=== PATIENT | female | born 1950 | race Caucasian/White ===

== ENCOUNTER 2019-09-17 20:11 | Emergency (ER) | payer OTHER, SELFPAY ==
--- NOTE | ~2019-09-17 | CT_ITS ---
EXAMINATION: CT cervical spine wo con DATE: 09/17/2019 21:09 INDICATION: Neck pain TECHNIQUE: Computed tomography (CT) of the cervical spine was performed without intravenous contrast. The dose-length product (DLP) was 464.34 mGy-cm. Automated exposure control and iterative reconstruc tion technique were employed. COMPARISON: None FINDINGS: There is no fracture, dislocation, or subluxation. The odontoid is intact. The vertebral casandra dy heights are normal. There is mild loss of intervertebral disc space height at multiple levels in t he cervical spine. There is mild facet and uncovertebral joint osteoarthritis. IMPRESSION: 1. Mild cervical spondylosis without acute findings. Reviewed, dictated and finalized at location A.
--- NOTE | ~2019-09-17 | XR_ITS ---
EXAMINATION: XR wrist RT min 3V DATE: 09/17/2019 20:54 INDICATION: Right wrist pain TECHNIQUE: Posteroanterior, ulnar deviation, oblique, and lateral views of the right wrist were obtai jad. COMPARISON: None available FINDINGS: Internal stabilization hardware is present at the distal radius and ulna. No acute fracture is identified. Bone alignment is normal. IMPRESSION: 1. No acute osseous abnormality. Reviewed, dictated and finalized at location A.
[2019-09-17 20:16] VITALS: BP 153/71; PULSE 74; RESP 18; TEMP 37.2; O2SAT 97
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
[2019-09-17] MEDS: TETANUS,DIPHTHERIA,AC PERTUSSIS ADULT 0.5 ML (ADACEL) IM (20:49)
[2019-09-17 22:16] VITALS: BP 113/66; PULSE 72; RESP 18; O2SAT 98
== END 2019-09-17 22:17 | disposition home or self-care (01) ==
PROVIDERS: Emergency Provider Family Medicine; PCP Internal Medicine
DX: S60.212A Contusion of left wrist, initial encounter (principal); S60.211A Contusion of right wrist, initial encounter; S61.511A Laceration without foreign body of right wrist, initial encounter; S16.1XXA Strain of muscle, fascia and tendon at neck level, initial encounter; V89.2XXA Person injured in unspecified motor-vehicle accident, traffic, initial encounter
CPT/HCPCS: 29125; 72125; 73110; 90471; 90715; 99282; 99284; L3908

== ENCOUNTER 2019-11-28 14:54 | Outpatient (CLI) | payer MEDICARE, SELFPAY ==
[2019-11-28 15:27] LABS: Add Urine Microscopic? YES; Appearance Urine Sl Cloudy (Clear); Bilirubin Urine Negative (Negative); Blood Urine Negative (Negative); Color Urine Yellow (Yellow); Glucose Urine UA Negative (Negative); Ketones Urine Negative (Negative); Leukocyte Esterase Ur 1+ LEU/UL (Negative); Nitrate Urine Positive (Negative); Protein Urine Trace (Negative); Specific Grav Ur 1.015 (1.010-1.020); pH Urine 7.5 (5.0-8.0)
[2019-11-28 15:32] LABS: Bacteria Urine 4+ /hpf; RBC Urine 0-2 /hpf (0-2); Squamous Epithelial Cell Urine Few /hpf (Few)
== END 2019-11-28 14:55 | disposition home or self-care (01) ==
LOC: CHSLAB 14:56
PROVIDERS: PCP Internal Medicine; Visit Provider Internal Medicine
DX: N39.9 Disorder of urinary system, unspecified (principal); R82.90 Unspecified abnormal findings in urine
CPT/HCPCS: 81001; 87077; 87086; 87088; 87186

== ENCOUNTER 2020-09-19 16:28 | Inpatient (IN) | payer MEDICARE, OTHER, SELFPAY ==
--- NOTE | ~2020-09-19 | CT_ITS ---
CT knee RT wo con DATE: 09/19/2020 18:42 INDICATION: Right knee pain TECHNIQUE: Axial computerized slices through the right knee. Sagittal and coronal reconstructions. COMPARISON: 09/19/2020 right knee FINDINGS: There is knee joint effusion. Diffuse osteopenia. There is osteoarthritis involving the patellofemoral and lateral compartments primarily. There is prominent joint space narrowing and subarticular degenerative cyst formation as well as liza articular spurring at the patellofemoral joint. There is lucency at the base of the superior spurrin g at the patella, which may be recent or old small fracture. No other fracture or dislocation. IMPRESSION: Osteoarthritis and joint effusion Lucency at base of superior patellar spur, possibly recent or remote traumatic injury Reviewed, dictated and finalized at Location [facility]. Reviewed, dictated and finalized at location A.
--- NOTE | ~2020-09-19 | XR_ITS ---
XR hip RT 2V w AP pelvis DATE: 09/19/2020 17:36 INDICATION: Right hip pain radiating down right leg. TECHNIQUE: AP pelvis. AP and lateral views of right hip. COMPARISON: None FINDINGS: Detail is limited due to morbid obesity. Multiple surgical clips overlie the right lower quadrant and pelvis. Diffuse osteopenia. Left hip prosthesis. There is lucency overlying the left pubic bones; bone destruction is not excluded. CT pelvis examina tion is recommended. Otherwise no pelvic fracture or bone destruction is noted. Normal alignment at the pubic symphysis an d sacroiliac joints. No fracture, dislocation, avascular necrosis or bone destruction of the right hip is evident. IMPRESSION: Nonspecific lucency overlying left pubic bone; CT pelvis examination is recommended. Diffuse osteopenia Left hip prosthesis Reviewed, dictated and finalized at location A. IMPRESSION: Nonspecific lucency overlying left pubic bone; CT pelvis examinatio n is recommended. Diffuse osteopenia Left hip prosthesis
--- NOTE | ~2020-09-19 | CT_ITS ---
EXAMINATION: CT pelvis wo con DATE: 09/19/2020 18:43 INDICATION: Right hip and leg pain TECHNIQUE: Computed tomography (CT) of the pelvis was performed without intravenous contrast. Automat ed exposure control and iterative reconstruction technique were employed. Exam dose: 972.19 mGy-cm t otal exam DLP. COMPARISON: None FINDINGS: There is no CT correlate for the lucency noted overlying the left pubic bone on the plain r adiographic examination of 09/19/2020. No pelvic fracture or bone destruction is evident. Left hip arthroplasty. Prominent degenerative disc disease at L5-S1. There is a ventral infrarenal midline abdominal wall hernia containing herniated nonobstructed transv erse colon. There is a fat-containing umbilical hernia. Surgical clips at right lower quadrant and pelvis. IMPRESSION: No pelvic fracture or bone destruction Left hip prosthesis Postoperative change of the right lower quadrant and pelvis Herniated transverse and unobstructed transverse colon and infrarenal ventral midline abdominal wall hernia Fat-containing umbilical hernia Severe degenerative disease at L5-S1 Reviewed, dictated and finalized at [facility]. Reviewed, dictated and finalized at location A. IMPRESSION: No pelvic fracture or bone destruction Left hip prosthesis Postoperative change of the right lower quadrant and pelvis Herniated transverse and unobstructed transverse colon and infrarenal ventral m idline abdominal wall hernia Fat-containing umbilical hernia Severe degenerative disease at L5-S1
--- NOTE | ~2020-09-19 | XR_ITS ---
XR knee RT min 4V DATE: 09/19/2020 17:36 INDICATION: Right knee pain, unable to bear weight. No known injury. TECHNIQUE: 4 views including crosstable lateral COMPARISON: None FINDINGS: Suprapatellar knee joint effusion is noted. There is a linear lucency along the posterosuperior margin of the patella which may represent a small linear fracture. No fracture or dislocation, periosteal reaction or bone destruction is noted otherw ise. No radiopaque interarticular loose body or chondrocalcinosis. Mild tricompartment osteoarthritis of the knee joint. Diffuse osteopenia. IMPRESSION: Suprapatellar knee joint effusion Cannot exclude small linear fracture at the posterior superior margin of the patella Diffuse osteopenia Mild tricompartment osteoarthritis Reviewed, dictated and finalized at location A. IMPRESSION: Suprapatellar knee joint effusion Cannot exclude small linear fracture at the posterior superior margin of the pa tella Diffuse osteopenia Mild tricompartment osteoarthritis
[2020-09-19 16:40] VITALS: BP 149/63; PULSE 72; RESP 20; TEMP 36.1; O2SAT 98
[2020-09-19] MEDS: KETOROLAC 30 MG/ML VIAL (*BKC) IV PUSH (17:03)
[2020-09-19] MEDS: SODIUM CHLORIDE 0.9% IV 1,000 ML 999 ML IV CONT (17:04)
[2020-09-19 17:37] LABS: Lactic Acid Reflex 2.3 mmol/L (0.4-2.0)
[2020-09-19 17:40] LABS: CRP 4.1 mg/dL (0.0-0.9)
[2020-09-19 17:42] LABS: Basophils Absolute Auto 0.03 K/mm3 (0.00-0.10); Basophils Percent Auto 0.3 % (0.0-1.0); Eosinophils Absolute Auto 0.01 K/mm3 (0.02-0.50); Eosinophils Percent Auto 0.1 % (1.0-6.0); Hematocrit 33.7 % (35.0-42.0); Hemoglobin 10.9 g/dL (11.7-13.8); Immature Granulocyte Absolute 0.08 K/mm3 (0.00-0.00); Immature Granulocyte Percent A 0.7 % (0.0-0.0); Lymphocytes Absolute Auto 0.16 K/mm3 (1.10-4.50); Lymphocytes Percent Auto 1.4 % (18.0-42.0); Mean Corpuscular HGB Conc 32.3 g/dL (32.0-36.0); Mean Corpuscular Hemoglobin 29.6 pg (27.0-31.0); Mean Corpuscular Volume 91.6 fL (78.0-102.0); Monocytes Absolute Auto 0.15 K/mm3 (0.10-0.90); Monocytes Percent Auto 1.3 % (2.0-11.0); Neutrophils Absolute Auto 10.9 K/mm3 (1.7-7.2); Neutrophils Percent Auto 96.2 % (50.0-70.0); Platelet Count Result 129 K/mm3 (150-420); Red Blood Count 3.68 M/mm3 (4.20-5.40); Red Cell Distribution Width 15.9 % (11.6-14.4); White Blood Count 11.4 K/mm3 (4.8-10.8)
[2020-09-19 17:46] LABS: Creatine Kinase 20 U/L (26-192)
[2020-09-19 17:48] LABS: Alanine Aminotransferase 35 U/L (14-59); Albumin Level 3.4 g/dL (3.4-5.0); Alkaline Phosphatase 39 U/L (46-116); Anion Gap 8 mmol/L (8-16); Aspartate Amino Transferase 29 U/L (15-37); Bilirubin,Total 1.1 mg/dL (0.00-1.00); Blood Urea Nitrogen 20 mg/dL (7-18); Calcium 8.7 mg/dL (8.5-10.1); Carbon Dioxide 29 mmol/L (21-32); Chloride 96 mmol/L (98-108); Estimated CRCL calculation 57 ml/min; Estimated Glomerular Filt Rate 53; Glucose 197 mg/dL (70-99); Osmolality Calculated 283 mOsm/kg (285-295); Potassium 3.9 mmol/L (3.5-5.1); Sodium 133 mmol/L (136-145); Total Protein 6.7 g/dL (6.4-8.2); Uric Acid 4.7 mg/dL (2.6-6.0)
[2020-09-19 18:00] VITALS: BP 139/46; PULSE 75; RESP 18; O2SAT 95
[2020-09-19] MEDS: MORPHINE SULFATE (*CRX) 4 MG/ML INJ IV PUSH (18:05)
--- NOTE | 2020-09-19 19:16 | ED.LOWEXIN ---
HPI - Extremity Injury (Lower) General Source: patient, family and EMS Mode of arrival: EMS Limitations: no limitations History of Present Illness HPI Narrative: this is a 70-year-old female with history of rheumatoid arthritis presents via EMS with some right anterior knee pain tenderness warmth to touch, the patient has pain that she rates about an 8/10 did not take anything for pain that has been going on for the last 2 or 3 days and has intensified over the last 24 hours. The patient has a history of remote rheumatoid arthritis currently on methotrexate and the patient is unaware of any injuries, has limited range of motion secondary to pain and swelling. Currently there is no fever, no shortness of breath no chest pain no abdominal pain no nausea vomiting no diarrhea constipation. MD complaint: knee injury Injury: Right: knee ( Tender anterior right knee) Type of Injury: unknown Place: home Severity: moderate Severity scale (1-10): 8 Relieving factors: nothing ( did not try anything at home) Exacerbating factors: weight bearing, movement and palpation Associated symptoms: swelling and unable to bear weight Other symptoms: none Related Data Home Medications Medication Instructions Recorded Confirmed aspirin [Adult Aspirin] 81 mg PO DAILY 09/19/20 09/19/20 duloxetine 60 mg PO DAILY 09/19/20 09/19/20 folic acid 1 mg PO DAILY 09/19/20 09/19/20 methotrexate sodium 2.5 mg PO DAILY 09/19/20 09/19/20 bffbvjiv-cruy-XL-calcium-mins 1 tablet PO DAILY 09/19/20 09/19/20 [Women's One Daily] pantoprazole 40 mg PO DAILY 09/19/20 09/19/20 Allergies Allergy/AdvReac Type Severity Reaction Status Date / Time nizatidine Allergy Severe Verified 08/04/16 18:21 Review of Systems Review of Systems: All systems reviewed & are unremarkable except as noted in HPI and below PMFSH Past Medical History Medical History Rheumatoid aortitis Family History Family History Other Diabetes mellitus Malignant neoplasm of prostate Social History Social History Smoking status: Former smoker Smoking end date: 07/05/90 Drinks per week: 1 Substance use: never Gender identity (if verbalized by the patient): Female Spiritual care concerns: No Exam Const: General: no acute distress Orientation/consciousness: patient oriented x3 HENMT: Head: normal to inspection Eyes: Conjunctivae: conjunctivae normal Pupils: Equal, round and reactive pupils present Direct Ophthalmoscopy: no photophobia Neck: Neck: normal visual inspection, no lymphadenopathy and no meningeal signs Chest: Chest palpation & inspection: normal inspection of the chest Resp: Effort & Inspection: normal respiratory effort Auscultation: clear to auscultation bilaterally Cardio: Rate: regular rate Rhythm: regular rhythm GI: GI Palp: Yes Soft to palpation : General: Yes no CVA tenderness Skin: Other: Has anterior right knee tender with palpation and with movement is warm and tender. Neuro: General: patient oriented x3 Extrem: General: normal to inspection and no pedal edema Psych: Appearance: well kempt Mental Status: mental status grossly normal Affect: normal affect Course Course Emergency Course: Patient receive morphine and Toradol and pain has improved twister frame tender with palpation and movement, reviewed labs and x-rays with patient x-ray and CT scan show that there is some osteoarthritis of the right knee with some joint effusion and a lucency at the base that is suspicious for a traumatic knee injury. Will advised that we would admit the patient with observation and give a dose of antibiotics and continue pain control and monitor her blood labs Vital Signs Vital signs: Vital Signs Temperature 36.1 C L 09/19/20 16:40 Pulse Rate 72 09/19/20 16:40 Respiratory Rate 20
--- NOTE | 2020-09-19 19:32 | PC.NURSE ---
pt to be admitted to obs room 205, report to ceci.
[2020-09-19 19:33] VITALS: BP 125/54; PULSE 72; RESP 20; O2SAT 93
[2020-09-19 19:39] LABS: Erythrocyte Sedimentation Rate 20 mm/hr (0-20)
[2020-09-19 20:00] VITALS: BP 131/53; PULSE 85; RESP 18; TEMP 37.4; O2SAT 96
[2020-09-19] MEDS: SODIUM CHLORIDE 0.9% IV 1,000 ML 100 ML IV CONT (20:11)
--- NOTE | 2020-09-19 20:20 | ADMGEN ---
This patient, Ariadne Okeefe, was admitted to 2nd Floor Room 205-2. Patient/family oriented to hospital policies and general routines including ID bracelet, bed and alarms, visiting hours, pain management, procedures, bathroom and other care routines, personal items, smoking policy, room service/diet, and visiting hours. Patient admitted for knee pain with swelling, warmth and discomfort Information on how to activate the Rapid Response Team has been discussed. Patient/Family are encouraged to report perceived risks to care and to ask questions if they do not understand what they are told or what they should do.
[2020-09-19 20:28] VITALS: BMI 34.0
--- NOTE | 2020-09-19 20:43 | PC.NURSE ---
Patient unable to assist with movement. Difficulty with repositioning. Maxi slides used. refused to reposition due to knee pain.
[2020-09-19 20:46] LABS: Reflex Lactic Acid Yes or No Add Lactic
--- NOTE | 2020-09-19 21:20 | PC.NURSE ---
Patient is resting at this time. refuses bedpan. Denies [place] is wet. Does not want to change position. Stated it doesn't hurt as ling as she stays in one place.
[2020-09-19 21:21] LABS: Lactic Acid 1.1 mmol/L (0.4-2.0)
--- NOTE | 2020-09-19 22:18 | PC.NURSE ---
Patient resting. Did not open eyes when nurse in room. Fluids continue as ordered. Pain at 0 on FLACC
[2020-09-20] VITALS (8 sets, daily range): BP systolic 132–144; BP diastolic 50–73; PULSE 63–78; RESP 18–20; TEMP 36.4–37.8; O2SAT 93–96
--- NOTE | 2020-09-20 00:15 | PC.NURSE ---
Patient temp 100.1. Requested order for PRN tylenol for patient. Patient continues to receive fluid as ordered. Pain level appear to be increasing.
[2020-09-20] MEDS: MORPHINE SULFATE (*CRX) 2 MG/ML INJ IV PUSH ×6 (00:19→23:45)
--- NOTE | 2020-09-20 00:21 | PC.NURSE ---
Dr. Hunt notified of pt's temp of 100.1; New orders received and noted.
--- NOTE | 2020-09-20 00:23 | PM.EVENT ---
Event Note Event Note Event Note: addendum to my previous note on Ariadne Okeefe. Kate criteria for septic joint comes to less than 3%. The anterior right knee is warm and tender to touch and suspect cellulitis and received 1st dose of ceftriaxone.
[2020-09-20] MEDS: ACETAMINOPHEN 325 MG TABLET 650 MG PO (00:32)
--- NOTE | 2020-09-20 01:42 | PC.NURSE ---
Patient is resting. respirations regular and even. pain 0 on FLACC.
--- NOTE | 2020-09-20 02:44 | PC.NURSE ---
Patient pain level 0 on FLACC. Depends appears dry. Patient refuses to change position
--- NOTE | 2020-09-20 03:45 | PC.NURSE ---
Patient resting. Pain on FLACC. Fluids continue as ordered
--- NOTE | 2020-09-20 04:43 | PC.NURSE ---
Patient is afebrile at this time. Pain level 0 on FLACC.
[2020-09-20 05:26] LABS: Basophils Absolute Auto 0.03 K/mm3 (0.00-0.10); Basophils Percent Auto 0.3 % (0.0-1.0); Eosinophils Absolute Auto 0.02 K/mm3 (0.02-0.50); Eosinophils Percent Auto 0.2 % (1.0-6.0); Hematocrit 30.8 % (35.0-42.0); Immature Granulocyte Absolute 0.05 K/mm3 (0.00-0.00); Immature Granulocyte Percent A 0.5 % (0.0-0.0); Lymphocytes Absolute Auto 0.78 K/mm3 (1.10-4.50); Lymphocytes Percent Auto 8.2 % (18.0-42.0); Mean Corpuscular HGB Conc 32.5 g/dL (32.0-36.0); Mean Corpuscular Hemoglobin 29.1 pg (27.0-31.0); Mean Corpuscular Volume 89.5 fL (78.0-102.0); Mean Platelet Volume 10.5 fl (9.2-11.8); Monocytes Absolute Auto 0.41 K/mm3 (0.10-0.90); Monocytes Percent Auto 4.3 % (2.0-11.0); Neutrophils Absolute Auto 8.3 K/mm3 (1.7-7.2); Neutrophils Percent Auto 86.5 % (50.0-70.0); Platelet Count Result 118 K/mm3 (150-420); Red Blood Count 3.44 M/mm3 (4.20-5.40); Red Cell Distribution Width 16.1 % (11.6-14.4); White Blood Count 9.6 K/mm3 (4.8-10.8)
[2020-09-20] MEDS: SODIUM CHLORIDE 0.9% IV 1,000 ML 100 ML IV CONT ×2 (05:30→17:20)
--- NOTE | 2020-09-20 05:38 | PC.NURSE ---
Patient alert and oriented. Offered to check Depends and /or provide bedpan. Denied being wet and did not want to attempt bedpan due to sidcomfort
[2020-09-20 05:42] LABS: Alanine Aminotransferase 30 U/L (14-59); Albumin Level 2.8 g/dL (3.4-5.0); Alkaline Phosphatase 31 U/L (46-116); Anion Gap 9 mmol/L (8-16); Aspartate Amino Transferase 23 U/L (15-37); Bilirubin,Total 2.4 mg/dL (0.00-1.00); Blood Urea Nitrogen 29 mg/dL (7-18); Calcium 8.4 mg/dL (8.5-10.1); Carbon Dioxide 26 mmol/L (21-32); Chloride 100 mmol/L (98-108); Estimated CRCL calculation 54 ml/min; Estimated Glomerular Filt Rate 48; Glucose 149 mg/dL (70-99); Osmolality Calculated 288 mOsm/kg (285-295); Potassium 4.2 mmol/L (3.5-5.1); Sodium 135 mmol/L (136-145); Total Protein 5.8 g/dL (6.4-8.2)
[2020-09-20 05:47] LABS: Lactic Acid Reflex 0.9 mmol/L (0.4-2.0)
[2020-09-20] MEDS: PANTOPRAZOLE 40 MG TABLET PO (08:24)
[2020-09-20] MEDS: FOLIC ACID 1 MG TABLET PO (08:24)
[2020-09-20] MEDS: ASPIRIN 81 MG CHEWABLE TABLET PO (08:24)
[2020-09-20] MEDS: DULoxetine HCL 30 MG CAPSULE.DR 60 MG PO (08:25)
[2020-09-20] MEDS: THERAPEUTIC MULTIVITAMINS/MINERALS TAB (*BKC) 1 TABLET PO (08:25)
--- NOTE | 2020-09-20 09:19 | PM.IMHP ---
H&P: HPI History of Present Illness Date/Time: 09/20/20 09:19 Ariadne Okeefe is a 70 y/o F who comes to the hospital 1 week after falling in her bathtub at home. She has had increased pain in the right knee that was 8/10 on a pain scale. She states her knee started swelling and became red over the last 2-3 days. Pt states she has a Hx of RA. Other PMHx includes Depression. Pt denies CP, SOB, Bowel issues or changes in habits, weakness in the right knee r/t current issue. Admits to not drinking much at home as she does not like getting up in the middle of the night to urinate. <HUMBERTO Villagomez - Last Filed: 09/20/20 15:39> Chief Complaint: Right knee pain with redness and warmth <HUMBERTO Villagomez - Last Filed: 09/20/20 15:39> Review of Systems Review of Systems: All systems reviewed & are unremarkable except as noted in HPI and below <HUMBERTO Villagomez - Last Filed: 09/20/20 15:39> [facility] Past Medical History Medical History: Medical History Calculus of gallbladder with chronic cholecystitis without obstruction Encounter for surgical aftercare following surgery of digestive system Incisional hernia without obstruction or gangrene Rheumatoid aortitis <HUMBERTO Villagomez - Last Filed: 09/20/20 15:39> Family History Family History: Family History Other Diabetes mellitus Malignant neoplasm of prostate <HUMBERTO Villagomez - Last Filed: 09/20/20 15:39> Social History Social History: Social History Smoking status: Former smoker Smoking end date: 07/05/90 Drinks per week: 1 Substance use: never Gender identity (if verbalized by the patient): Female Spiritual care concerns: No <HUMBERTO Villagomez - Last Filed: 09/20/20 15:39> Meds Home Medications and Allergies Home medications: Home Medications Medication Instructions Recorded Confirmed Type aspirin [Adult Aspirin] 81 mg PO DAILY 09/19/20 09/19/20 History duloxetine 60 mg PO DAILY 09/19/20 09/19/20 History folic acid 1 mg PO DAILY 09/19/20 09/19/20 History methotrexate sodium 2.5 mg PO DAILY 09/19/20 09/19/20 History pdpjxvoc-dezw-XP-calcium-mins 1 tablet PO DAILY 09/19/20 09/19/20 History [Women's One Daily] pantoprazole 40 mg PO DAILY 09/19/20 09/19/20 History <HUMBERTO Villagomez - Last Filed: 09/20/20 15:39> Allergies/Adverse reactions: Allergies Allergy/AdvReac Type Severity Reaction Status Date / Time nizatidine Allergy Severe Verified 08/04/16 18:21 <HUMBERTO Villagomez - Last Filed: 09/20/20 15:39> Vital Signs Vital Signs - 24 hr 09/19/20 16:40 09/19/20 18:00 09/19/20 19:33 Temperature 97 F L Pulse Rate 72 75 72 Respiratory Rate 20 18 20 Blood Pressure 149/63 H 139/46 L 125/54 L Pulse Oximetry 98 95 93 09/19/20 20:00 09/20/20 00:00 09/20/20 00:32 Temperature 99.4 F 100.1 F H 100.1 F H Pulse Rate 85 74 Respiratory Rate 18 20 Blood Pressure 131/53 L 135/73 Pulse Oximetry 96 93 09/20/20 01:24 09/20/20 04:00 09/20/20 08:00 Temperature 99.0 F 98.1 F 97.9 F Pulse Rate 72 63 Respiratory Rate 18 18 Blood Pressure 132/55 L 137/53 L Pulse Oximetry 96 96 <HUMBERTO Villagomez - Last Filed: 09/20/20 15:39> Exam Const: General: cooperative, comfortable, no acute distress, alert, awake and Physically active (as much as possible) <HUMBERTO Villagomez - Last Filed: 09/20/20 15:39> Nutritional Appearance: obese <HUMBERTO Villagomez - Last Filed: 09/20/20 15:39> Resp: Effort & Inspection: normal respiratory effort <HUMBERTO Villagomez - Last Filed: 09/20/20 15:39> Auscultation: clear to auscultation bilaterally <HUMBERTO Villagomez - Last Filed: 09/20/20 15:39> Cardio: Rate: regular rate <HUMBERTO Villagomez - Last Filed: 09/20/20 15:39>
--- NOTE | 2020-09-20 15:32 | PC.NURSE ---
Immobilizer in place R Knee.
--- NOTE | 2020-09-20 19:40 | PC.NURSE ---
Patient assister to bedside commode and then to bed with a walker, a gait belt and 2 maximum assist. Patient did very little when standing up and also when sitting. Patient did fairly well during the ambulation part by hopping on her left leg. Right knee immobilizer in place but patient insisted it be taken off once she was in bed. Urine orange in color. Patient complaining of pain rated @ 8 to right knee with PRN Morphine given as ordered. Call light in reach.
[2020-09-21] VITALS: BP 145/61; PULSE 72; RESP 20; TEMP 36.3; O2SAT 93
[2020-09-21] MEDS: SODIUM CHLORIDE 0.9% IV 1,000 ML 100 ML IV CONT ×2 (03:46→13:33)
[2020-09-21] MEDS: MORPHINE SULFATE (*CRX) 2 MG/ML INJ IV PUSH (03:50)
[2020-09-21 04:00] VITALS: BP 143/66; PULSE 66; RESP 18; TEMP 36.1; O2SAT 96
[2020-09-21 05:42] LABS: Hematocrit 29.1 % (35.0-42.0); Hemoglobin 9.4 g/dL (11.7-13.8); Mean Corpuscular HGB Conc 32.3 g/dL (32.0-36.0); Mean Corpuscular Hemoglobin 29.5 pg (27.0-31.0); Mean Corpuscular Volume 91.2 fL (78.0-102.0); Mean Platelet Volume 10.3 fl (9.2-11.8); Platelet Count Result 112 K/mm3 (150-420); Red Blood Count 3.19 M/mm3 (4.20-5.40); Red Cell Distribution Width 16.3 % (11.6-14.4)
[2020-09-21 05:52] LABS: Anion Gap 6 mmol/L (8-16); Blood Urea Nitrogen 22 mg/dL (7-18); Calcium 8.1 mg/dL (8.5-10.1); Carbon Dioxide 28 mmol/L (21-32); Chloride 102 mmol/L (98-108); Estimated CRCL calculation 62 ml/min; Estimated Glomerular Filt Rate 57; Glucose 116 mg/dL (70-99); Osmolality Calculated 286 mOsm/kg (285-295); Sodium 136 mmol/L (136-145)
[2020-09-21 08:00] VITALS: BP 135/66; PULSE 63; RESP 18; TEMP 35.9; O2SAT 98
[2020-09-21] MEDS: ASPIRIN 81 MG CHEWABLE TABLET PO (09:19)
[2020-09-21] MEDS: THERAPEUTIC MULTIVITAMINS/MINERALS TAB (*BKC) 1 TABLET PO (09:19)
[2020-09-21] MEDS: FOLIC ACID 1 MG TABLET PO (09:19)
[2020-09-21] MEDS: DULoxetine HCL 30 MG CAPSULE.DR 60 MG PO (09:19)
[2020-09-21] MEDS: PANTOPRAZOLE 40 MG TABLET PO (09:19)
--- NOTE | 2020-09-21 10:15 | PM.IMPN ---
Progress Note: A&P Assessment and Plan (1) Acute knee pain: Qualifiers: Laterality: right Qualified Code(s): M25.561 - Pain in right knee Code(s): M25.569 - Pain in unspecified knee Status: Acute Assessment and Plan: Pain control (2) Patellar fracture: Qualifiers: Encounter type: initial encounter Fracture alignment: nondisplaced Fracture morphology: unspecified fracture morphology Fracture type: closed Laterality: right Qualified Code(s): S82.001A - Unspecified fracture of right patella, initial encounter for closed fracture Code(s): S82.009A - Unspecified fracture of unspecified patella, initial encounter for closed fracture Status: Acute Assessment and Plan: Knee brace while up and pain control. Assistance to and from bathroom (3) Rheumatoid aortitis: Code(s): I01.1 - Acute rheumatic endocarditis Status: Acute Assessment and Plan: Call placed to Dr. Watkins and informed of patient condition see above note uric acid level normal will consider steroids if no improvement (4) Knee effusion, right: Code(s): M25.461 - Effusion, right knee Status: Acute Assessment and Plan: Denny wrap started on this knee with Ice pack and elevation. Will monitor labs for WBC, ESR, CRP if indicative of infection will tap for synovial fluid to send to lab Subjective Date/time seen: 09/21/20 10:[address]Richard Watkins at [facility] patient Disk Recordist regarding patient swelling and patient to discuss plan of care and possible tap of fluids in the knees. Dr. Watkins has explained that she more than likely has a knee effusion that is causing her swelling and not a RA issue due to her having the fall prior to the swelling. Would should add compression to see if that helps with relieving some of this patient knee swelling. He is not able to truly diagnosis that because she is here tapping her knee and sending the synovial fluid off would not be off base. He explained to have patient follow up outpatient once she leaves. Patient just went into the bed and was complaining of a lot of pain to her knee, back, shoulder and states her full body is hurting her. Patient states she is not sure if the pain medication is helping because she is always hurting. Patient states that she has a RA who just had her on Steroids she has been off of for two weeks at this time. Patient denies any nausea and or vomiting. She complains that she does not like the leg brace and feels like it continue to fall down and she does not like wearing it. Review of Systems Review of Systems: Narrative: Body aches and knee pain Hands, knee, back and neck pain. All systems reviewed & are unremarkable except as noted in HPI and below Exam Const: General: cooperative, healthy appearing and alert Nutritional Appearance: well nourished Orientation/consciousness: oriented to person, oriented to place, oriented to time and patient oriented x3 Limitations: physical limitations HENMT: Head: normal to inspection Ears: hearing grossly normal bilaterally General nose exam: Normal external nose present Face and sinus: normal facial exam Mouth: Yes Normal oral and palatal mucosa present, Yes lip normal and Yes tongue normal Eyes: General: appearance normal, both eyes and all related structures Periorbital: periorbital findings normal Pupils: Equal, round and reactive pupils present Neck: Neck: supple Carotids: other (c/o pain and stiffness due to the way she is laying in the bed. ) Cardio: Palpation: normal PMI Rate: regular rate Rhythm: regular rhythm GI: Inspection: normal to inspection Auscultation: normal bowel sounds Back/Spine/Pelvis: Back: no CVA tenderness Other: Pain in the back not able to pin point exact location Skin: General skin exam: normal color Neuro: General: oriented to person, oriented to place, oriented to time and patient or
--- NOTE | 2020-09-21 10:22 | PC.NURSE ---
Denny wrap applied tightly to right knee per POT TENDER
[2020-09-21] MEDS: HYDROcodone/acetaminophen (*CRX) 5-325 MG TABLET 1 TAB PO ×3 (10:53→20:01)
[2020-09-21] MEDS: NITROFURANTOIN MONOHYD MACROCR 100 MG CAP PO ×2 (10:54→20:01)
[2020-09-21 11:14] LABS: Uric Acid 3.9 mg/dL (2.6-6.0)
[2020-09-21 12:00] VITALS: BP 126/55; PULSE 66; RESP 18; TEMP 36.6; O2SAT 99
[2020-09-21 16:00] VITALS: BP 135/56; PULSE 66; RESP 18; TEMP 36.6; O2SAT 98
[2020-09-22] VITALS: BP 151/56; PULSE 75; RESP 18; TEMP 36.6; O2SAT 91
[2020-09-22] MEDS: HYDROcodone/acetaminophen (*CRX) 5-325 MG TABLET 1 TAB PO (05:26)
[2020-09-22 05:52] LABS: Hematocrit 28.7 % (35.0-42.0); Hemoglobin 9.2 g/dL (11.7-13.8); Mean Corpuscular HGB Conc 32.1 g/dL (32.0-36.0); Mean Corpuscular Volume 90.5 fL (78.0-102.0); Mean Platelet Volume 10.7 fl (9.2-11.8); Platelet Count Result 114 K/mm3 (150-420); Red Blood Count 3.17 M/mm3 (4.20-5.40); Red Cell Distribution Width 16.1 % (11.6-14.4); White Blood Count 6.9 K/mm3 (4.8-10.8)
[2020-09-22 06:04] LABS: Alanine Aminotransferase 21 U/L (14-59); Albumin Level 2.7 g/dL (3.4-5.0); Alkaline Phosphatase 30 U/L (46-116); Anion Gap 9 mmol/L (8-16); Aspartate Amino Transferase 11 U/L (15-37); Blood Urea Nitrogen 20 mg/dL (7-18); Calcium 8.5 mg/dL (8.5-10.1); Carbon Dioxide 27 mmol/L (21-32); Chloride 100 mmol/L (98-108); Estimated CRCL calculation 70 ml/min; Estimated Glomerular Filt Rate > 60; Glucose 126 mg/dL (70-99); Osmolality Calculated 286 mOsm/kg (285-295); Potassium 4.1 mmol/L (3.5-5.1); Sodium 136 mmol/L (136-145); Total Protein 5.9 g/dL (6.4-8.2)
[2020-09-22 07:47] LABS: CRP 14.7 mg/dL (0.0-0.9)
[2020-09-22 08:00] VITALS: BP 129/54; PULSE 66; RESP 18; TEMP 36.6; O2SAT 96
--- NOTE | 2020-09-22 08:02 | P.DS_ITS ---
DS: Admitting Diagnosis Admitting Diagnosis Admitting Diagnosis: Fracture left patella, rheumatoid arthritis <Sandy Cornelius NETBACKUP ADMINISTRATORLarisaC - Last Filed: 09/22/20 12:24> DS: Discharge Diagnosis Discharge Diagnosis (1) Acute knee pain: Qualifiers: Laterality: right Qualified Code(s): M25.561 - Pain in right knee <Sandy Cornelius NETBACKUP ADMINISTRATORLarisaC - Last Filed: 09/22/20 12:24> Code(s): M25.569 - Pain in unspecified knee <Sandy Cornelius NETBACKUP ADMINISTRATOR-C - Last Filed: 09/22/20 12:24> Status: Acute <Sandy Cornelius NETBACKUP ADMINISTRATORLarisaC - Last Filed: 09/22/20 12:24> Assessment and Plan: * Secondary to patella fracture versus rheumatoid arthritis * Pain control * Patient will discharge home with instructions to continue use of Denny wrap, knee immobilizer and use of steroids * She will also need to follow-up with orthopedics and her primary care physician with possible PT OT <Sandy Cornelius NETBACKUP ADMINISTRATORLarisa - Last Filed: 09/22/20 12:24> (2) Patellar fracture: Qualifiers: Encounter type: initial encounter Fracture alignment: nondisplaced Fracture morphology: unspecified fracture morphology Fracture type: closed Laterality: right Qualified Code(s): S82.001A - Unspecified fracture of right patella, initial encounter for closed fracture <Sandy Cornelius NETBACKUP ADMINISTRATORLarisaC - Last Filed: 09/22/20 12:24> Code(s): S82.009A - Unspecified fracture of unspecified patella, initial encounter for closed fracture <Sandy CorneliusNIKI-C - Last Filed: 09/22/20 12:24> Status: Acute <Sandy Cornelius NETBACKUP ADMINISTRATORLarisaC - Last Filed: 09/22/20 12:24> Assessment and Plan: * CT of the knee indicates fracture of her patella and joint effusion of her right knee * Knee brace while up and pain control. * Patient will need to follow-up with orthopedics, per Mrs. 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 Watkins and informed of patient condition. Will need to follow-up with her director hydrogen storage engineering * uric acid level normal * Patient was discharged with prednisone <AUDRA Glez - Last Filed: 09/22/20 12:24> (4) Knee effusion, right: Code(s): M25.461 - Effusion, right knee <AUDRA Glez - Last Filed: 09/22/20 12:24> Status: Acute <AUDRA Glez - Last Filed: 09/22/20 12:24> Assessment and Plan: * Denny wrap started on this knee with Ice pack and elevation. * Not indicated at this time patient WBCs within normal limits patient afebrile. <AUDRA Glez - Last Filed: 09/22/20 12:24> DS: Summary Hospital Course Reason for hospitalization: Ariadne Okeefe is a 70 y/o F who comes to the hospital post fall with right knee pain. She states her knee started swelling and became red over the last 2-3 days. Pt states she has a Hx of RA. Other PMHx includes Depression. Pt denies CP, SOB, , weakness in the right knee r/t current issue. CT of the knee indicates osteoarthritis with joint effusion. CT of the knee cannot exclude small linear fracture at the posterior superior margin of the patella. Patient director hydrogen storage engineering contacted keegan
--- NOTE | 2020-09-22 08:02 | PM.DS ---
DS: Admitting Diagnosis Admitting Diagnosis Admitting Diagnosis: Fracture left patella, rheumatoid arthritis <MED GlezC - Last Filed: 09/22/20 12:24> DS: Discharge Diagnosis Discharge Diagnosis (1) Acute knee pain: Qualifiers: Laterality: right Qualified Code(s): M25.561 - Pain in right knee <MED GlezC - Last Filed: 09/22/20 12:24> Code(s): M25.569 - Pain in unspecified knee <NIKI Glez-C - Last Filed: 09/22/20 12:24> Status: Acute <MED GlezC - Last Filed: 09/22/20 12:24> Assessment and Plan: Secondary to patella fracture versus rheumatoid arthritis Pain control Patient will discharge home with instructions to continue use of Denny wrap, knee immobilizer and use of steroids She will also need to follow-up with orthopedics and her primary care physician with possible PT OT <AUDRA Glez - Last Filed: 09/22/20 12:24> (2) Patellar fracture: Qualifiers: Encounter type: initial encounter Fracture alignment: nondisplaced Fracture morphology: unspecified fracture morphology Fracture type: closed Laterality: right Qualified Code(s): S82.001A - Unspecified fracture of right patella, initial encounter for closed fracture <MED GlezC - Last Filed: 09/22/20 12:24> Code(s): S82.009A - Unspecified fracture of unspecified patella, initial encounter for closed fracture <MED GlezC - Last Filed: 09/22/20 12:24> Status: Acute <AUDRA Glez - Last Filed: 09/22/20 12:24> Assessment and Plan: CT of the knee indicates fracture of her patella and joint effusion of her right knee Knee brace while up and pain control. Patient will need to follow-up with orthopedics, per Mrs. 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 Watkins and informed of patient condition. Will need to follow-up with her tax compliance agent uric acid level normal Patient was discharged with prednisone <AUDRA Glez - Last Filed: 09/22/20 12:24> (4) Knee effusion, right: Code(s): M25.461 - Effusion, right knee <AUDRA Glez - Last Filed: 09/22/20 12:24> Status: Acute <AUDRA Glez - Last Filed: 09/22/20 12:24> Assessment and Plan: Denny wrap started on this knee with Ice pack and elevation. Not indicated at this time patient WBCs within normal limits patient afebrile. <ADURA Glez - Last Filed: 09/22/20 12:24> DS: Summary Hospital Course Reason for hospitalization: Ariadne Okeefe is a 70 y/o F who comes to the hospital post fall with right knee pain. She states her knee started swelling and became red over the last 2-3 days. Pt states she has a Hx of RA. Other PMHx includes Depression. Pt denies CP, SOB, , weakness in the right knee r/t current issue. CT of the knee indicates osteoarthritis with joint effusion. CT of the knee cannot exclude small linear fracture at the posterior superior margin of the patella. Patient tax compliance agent contacted recommended possible tapping the knee if no improvement with a Denny wrap and elevation her extremity and use of ice. Patient condition has improved with the use of Denny wrap and elevating the affected extremity she will be discharged home with steroids .she has also been encouraged to use her knee immobilizer due to a fracture pat
[2020-09-22 08:16] VITALS: BP 129/54; PULSE 66; RESP 18; TEMP 36.6; O2SAT 95
[2020-09-22] MEDS: predniSONE 20 MG TABLET 60 MG PO (09:23)
[2020-09-22] MEDS: DULoxetine HCL 30 MG CAPSULE.DR 60 MG PO (09:24)
[2020-09-22] MEDS: ASPIRIN 81 MG CHEWABLE TABLET PO (09:24)
[2020-09-22] MEDS: THERAPEUTIC MULTIVITAMINS/MINERALS TAB (*BKC) 1 TABLET PO (09:24)
[2020-09-22] MEDS: FOLIC ACID 1 MG TABLET PO (09:24)
[2020-09-22] MEDS: PANTOPRAZOLE 40 MG TABLET PO (09:24)
[2020-09-22] MEDS: NITROFURANTOIN MONOHYD MACROCR 100 MG CAP PO (09:24)
--- NOTE | 2020-09-22 13:38 | PC.NURSE ---
Patient verbalized understanding of discharge instructions. Patient transported of the floor via wheelchair to personal vehicle. Right knee immobilizer applied before patient left. Patient unable to get leg into SUV with immobilizer on. Immobilizer removed. Son instructed on how to put immobilizer back on. Verbalized understanding.
--- NOTE | 2020-09-22 14:16 | PC.NURSE ---
family was here to pick patient up,the son has decided he wants home health for his mother. attempted to set up with [facility] but they have no opening for at least another week per danielle. residential home health referral sent and [facility] claims they will accept patient and are going to start intake and will see patient within 48 hours of dc jenni short
--- NOTE | 2020-09-30 11:46 | PC.NURSE ---
Pt states she received and understood her discharge instructions. Has no other comments.
== END 2020-09-22 13:30 | disposition home or self-care (01) | DRG 556 ==
LOC: CHSED 19:23 → CHS2ND 19:31
PROVIDERS: Nurse Practitioner; Nurse Practitioner Family; Admitting Provider Emergency Medicine; Emergency Provider Emergency Medicine; Visit Provider Emergency Medicine
DX: M25.561 Pain in right knee (principal); S82.001A Unspecified fracture of right patella, initial encounter for closed fracture; L03.115 Cellulitis of right lower limb; N17.9 Acute kidney failure, unspecified; M06.9 Rheumatoid arthritis, unspecified; D69.6 Thrombocytopenia, unspecified; W18.2XXA Fall in (into) shower or empty bathtub, initial encounter; F32.9 Major depressive disorder, single episode, unspecified; Z87.891 Personal history of nicotine dependence
CPT/HCPCS: 36415; 72192; 73502; 73564; 73700; 80048; 80053; 82550; 83605; 84550; 85025; 85027; 85652; 86140; 87040; 96361; 96365; 96375; 96376; 97161; 99285; A9270; G0378; J0696; J1885; J2270; J7030; J7512; L1830

== ENCOUNTER 2020-09-26 10:45 | Outpatient (NON) | payer MEDICARE, SELFPAY ==
[2020-09-26 11:04] LABS: Basophils Absolute Auto 0.01 K/mm3 (0.00-0.10); Basophils Percent Auto 0.2 % (0.0-1.0); Eosinophils Absolute Auto 0.02 K/mm3 (0.02-0.50); Eosinophils Percent Auto 0.4 % (1.0-6.0); Hemoglobin 9.8 g/dL (11.7-13.8); Immature Granulocyte Absolute 0.04 K/mm3 (0.00-0.00); Immature Granulocyte Percent A 0.7 % (0.0-0.0); Lymphocytes Absolute Auto 0.67 K/mm3 (1.10-4.50); Lymphocytes Percent Auto 12.5 % (18.0-42.0); Mean Corpuscular HGB Conc 31.6 g/dL (32.0-36.0); Mean Corpuscular Hemoglobin 28.9 pg (27.0-31.0); Mean Corpuscular Volume 91.4 fL (78.0-102.0); Mean Platelet Volume 10.8 fl (9.2-11.8); Monocytes Absolute Auto 0.32 K/mm3 (0.10-0.90); Neutrophils Absolute Auto 4.3 K/mm3 (1.7-7.2); Neutrophils Percent Auto 80.2 % (50.0-70.0); Platelet Count Result 176 K/mm3 (150-420); Red Blood Count 3.39 M/mm3 (4.20-5.40); Red Cell Distribution Width 16.5 % (11.6-14.4); White Blood Count 5.4 K/mm3 (4.8-10.8)
[2020-09-26 11:21] LABS: Alanine Aminotransferase 25 U/L (14-59); Albumin Level 3.1 g/dL (3.4-5.0); Alkaline Phosphatase 29 U/L (46-116); Anion Gap 8 mmol/L (8-16); Aspartate Amino Transferase 13 U/L (15-37); Bilirubin,Total 1.1 mg/dL (0.00-1.00); Blood Urea Nitrogen 23 mg/dL (7-18); CRP 8.3 mg/dL (0.0-0.9); Calcium 8.9 mg/dL (8.5-10.1); Carbon Dioxide 31 mmol/L (21-32); Chloride 100 mmol/L (98-108); Estimated Glomerular Filt Rate > 60; Glucose 102 mg/dL (70-99); Osmolality Calculated 291 mOsm/kg (285-295); Potassium 3.7 mmol/L (3.5-5.1); Sodium 139 mmol/L (136-145); Total Protein 6.3 g/dL (6.4-8.2)
[2020-09-26 11:31] LABS: D Dimer 1.33 mg/L (0.19-0.50)
[2020-09-26 12:19] LABS: BNP 338 pg/mL (0-100)
== END 2020-09-26 10:46 ==
LOC: CHSLAB 10:46
PROVIDERS: Visit Provider Internal Medicine
DX: D69.6 Thrombocytopenia, unspecified (principal); I01.1 Acute rheumatic endocarditis; R06.02 Shortness of breath
CPT/HCPCS: 36415; 80053; 83735; 83880; 85025; 85380; 86140

== ENCOUNTER 2020-09-26 13:53 | Observation (INO) | payer MEDICARE, OTHER, SELFPAY ==
--- NOTE | ~2020-09-26 | CT_ITS ---
EXAMINATION: CTA chest PE protocol DATE: 09/26/2020 15:00 INDICATION: Shortness of breath. Positive d-dimer. TECHNIQUE: Computed tomography angiography (CTA) of the chest was performed with 100 mL Omnipaque-350 intravenous contrast timed to evaluate the pulmonary arteries. Coronal maximum intensity projection 3D-reconstructions were created by the technologist. Automated exposure control and iterative reconst ruction technique were employed. Exam dose: 542.47 mGy-cm total exam DLP. COMPARISON: August 06, 2018 CTA chest FINDINGS: There is diagnostic contrast enhancement of the pulmonary arteries and no evidence of pulmo nary embolism. There is thoracic aortic and great vessel and coronary artery calcification. No thoracic aortic aneur ysm or dissection. Cardiomegaly. Status post sternotomy/mitral valve replacement. No pericardial effusion. No hilar or mediastinal mass lesion or lymphadenopathy. There is a large chronic stable loculated lower right thoracic pleural fluid collection, not signific antly changed in over 2 years since 08/06/2018, associated compressive atelectasis at the right lung ba se. Minimal left pleural effusion. Occasional scattered very small pulmonary nodular opacities are again noted. No interval suspicious n ew or enlarged mass density. Diffuse osteopenia. IMPRESSION: No evidence of pulmonary embolism Chronic large loculated right lower thoracic pleural fluid collection with associated compressive ate lectasis Emphysema Scattered small pulmonary nodules are again noted; no significant new or enlarging pulmonary mass Status post mitral valve replacement Reviewed, dictated and finalized at [facility]. Reviewed, dictated and finalized at [facility]. IMPRESSION: No evidence of pulmonary embolism Chronic large loculated right lower thoracic pleural fluid collection with asso ciated compressive atelectasis Emphysema Scattered small pulmonary nodules are again noted; no significant new or enlarg ing pulmonary mass Status post mitral valve replacement
--- NOTE | ~2020-09-26 | US_ITS ---
EXAMINATION: US venous doppler [facility] EXAM DATE: 09/26/2020 15:21 INDICATION: Elevated D Dimer and calf pain. TECHNIQUE: Multiple grayscale, color flow and Doppler images of the lower extremity deep venous syste ms bilaterally were obtained and reviewed. Comparison is made to prior examination from 08/04/2016. FINDINGS: Right side: The right common femoral, femoral and profunda veins demonstrate normal color flow, respi ratory variation, augmentation and compressibility. Compressibility, color flow confirmed within the right popliteal, posterior tibial, peroneal, and greater saphenous veins. Left side: The left common femoral, femoral and profunda veins demonstrate normal color flow, respira tory variation, augmentation and compressibility. Compressibility, color flow confirmed within the l eft popliteal, posterior tibial, peroneal, and greater saphenous veins. IMPRESSION: 1. No lower extremity deep venous thrombosis bilaterally. Reviewed, dictated and finalized at location [facility].
[2020-09-26 13:55] VITALS: BP 156/63; PULSE 79; RESP 22; TEMP 37.1; O2SAT 95
--- NOTE | 2020-09-26 14:05 | ECG_ITS ---
Measurements Intervals [place] Rate: 71 P: -31 VT: 127 QRS: 38 QRSD: 85 T: -11 QT: 400 QTc: 435 Interpretive Statements SINUS OR ECTOPIC ATRIAL RHYTHM NONSPECIFIC ST & T-WAVE ABNORMALITY- DIFFUSE LEADS BASELINE ARTIFACT- II, III, AVR, AVL, AVF BORDERLINE ECG Electronically Signed On 09-26-2020 14:32:27 CDT by Tulio Kate D.O.
[2020-09-26 14:29] LABS: Base Excess ABG 2.8 mmol/L (0-2); HCO3 ABG 25.8 mmol/L (23-29); Oxygen Content ABG 14.1 %vol (16.0-22.0); Oxygen Saturation ABG 95.5 % (95-97); PCO2 ABG 33.5 mmHg (35-45); PO2 ABG 79.2 mmHg (75-85); Total Hemoglobin 10.5 g/dL
[2020-09-26 14:29] LABS: INR 1.2; Prothrombin Time 12.7 Seconds (9.50-12.10)
[2020-09-26 14:34] LABS: Device ROOM AIR; Modified Allen's Test Pass; Site Drawn RIGHT RADIAL
[2020-09-26 14:42] LABS: Troponin I 46.1 ng/L (0.00-60.4)
[2020-09-26 14:49] LABS: SARS-CoV-2 Ag Negative (Negative)
[2020-09-26 15:37] VITALS: BP 142/58; PULSE 70; RESP 17; O2SAT 94
[2020-09-26 15:38] LABS: Add Urine Microscopic? YES; Appearance Urine Clear (Clear); Bilirubin Urine Negative (Negative); Blood Urine Negative (Negative); Color Urine Yellow (Yellow); Glucose Urine UA Negative (Negative); Ketones Urine Negative (Negative); Leukocyte Esterase Ur Negative LEU/UL (Negative); Nitrate Urine Negative (Negative); Protein Urine Negative (Negative); Specific Grav Ur 1.015 (1.010-1.020)
--- NOTE | 2020-09-26 15:42 | PC.NURSE ---
NEW LUCIO WRAP APPLIED TO RIGHT KNEE BRIGIDAB DR WONG
--- NOTE | 2020-09-26 15:43 | ED.SOB ---
HPI - SOB/Dyspnea General Chief Complaint: Shortness of Breath/Dyspnea Stated Complaint: possible blood clout in lung Source: patient History of Present Illness HPI Narrative: This is a 70-year-old female that presents with some increasing shortness of breath the patient was discharged approximately a week ago from our facility after she had what appeared to be a right patellar fracture with joint effusion. The patient has a history of COPD and has some an artificial aortic valve, blood work was performed by her primary care physician and was seen by primary care physician earlier today and found that she had an elevated D-dimer and sent to the emergency department to have that evaluated along with her her shortness of breath, the patient denies having any chest pain no palpitations but she was anxious with shortness of breath with no cough no fever chills. Patient has a history of COPD is currently not a smoker but was in the past, with a history of rheumatoid arthritis and fibromyalgia. The patient is currently satting at 94% on room air and did appear anxious initially. MD elicited complaint: shortness of breath Pertinent past history: COPD and congestive heart failure Onset (ago): day(s) Context: recent illness Severity: moderate Exacerbating factors: exertion Relieving factors: rest Known history of: COPD and congestive heart failure Related Data Home Medications Medication Instructions Recorded Confirmed Women's One Daily 1 tablet PO DAILY 09/19/20 09/26/20 aspirin 81 mg PO DAILY 09/19/20 09/26/20 duloxetine 60 mg PO DAILY 09/19/20 09/26/20 folic acid 1 mg PO DAILY 09/19/20 09/26/20 methotrexate sodium 2.5 mg PO DAILY 09/19/20 09/26/20 pantoprazole 40 mg PO DAILY 09/19/20 09/26/20 Allergies Allergy/AdvReac Type Severity Reaction Status Date / Time nizatidine Allergy Severe Verified 08/04/16 18:21 Review of Systems Review of Systems: All systems reviewed & are unremarkable except as noted in HPI and below PMFSH Past Medical History Medical History Calculus of gallbladder with chronic cholecystitis without obstruction Encounter for surgical aftercare following surgery of digestive system Incisional hernia without obstruction or gangrene Rheumatoid aortitis Family History Family History Other Diabetes mellitus Malignant neoplasm of prostate Social History Social History Smoking status: Former smoker Smoking end date: 07/05/90 Drinks per week: 1 Substance use: never Gender identity (if verbalized by the patient): Female Spiritual care concerns: No Exam Const: General: no acute distress Orientation/consciousness: patient oriented x3 HENMT: Head: normal to inspection Eyes: Conjunctivae: conjunctivae normal Pupils: Equal, round and reactive pupils present Neck: Neck: normal visual inspection, no lymphadenopathy and no meningeal signs Resp: Effort & Inspection: normal respiratory effort Auscultation: diminished lung sounds Cardio: Rate: regular rate Rhythm: regular rhythm GI: GI Palp: Yes Soft to palpation Percussion: Yes normal to percussion : General: Yes no CVA tenderness Back/Spine/Pelvis: Back: no CVA tenderness Neuro: General: patient oriented x3, moves all extremities and no meningeal signs Extrem: General: normal to inspection and no pedal edema Psych: Mental Status: mental status grossly normal Course Course Emergency Course: Reassessment of patient, the patient appears more comfortable satting at 94% on room air not struggling to breathe. The patient did have an elevated D-dimer and CTA and Doppler ultrasounds of bilateral lower extremities were performed which were negative for pulmonary embolism or any acute DVT. Reviewed blood work with patient and advised that we will be admitting the patient
[2020-09-26 15:48] LABS: Squamous Epithelial Cell Urine Few /hpf (Few); WBC Urine 0-3 /hpf (0-3)
[2020-09-26 15:58] VITALS: BP 136/60; PULSE 66; O2SAT 94
[2020-09-26 16:42] VITALS: BP 152/68; PULSE 73; RESP 18; TEMP 36.9; O2SAT 94; BMI 48.4
--- NOTE | 2020-09-26 17:01 | ADMGEN ---
This patient, Ariadne Okeefe, was admitted to 2nd Floor Room 203-2. Patient/family oriented to hospital policies and general routines including ID bracelet, bed and alarms, visiting hours, pain management, procedures, bathroom and other care routines, personal items, smoking policy, room service/diet, and visiting hours. Information on how to activate the Rapid Response Team has been discussed. Patient/Family are encouraged to report perceived risks to care and to ask questions if they do not understand what they are told or what they should do.
[2020-09-26] MEDS: FUROSEMIDE INJ 40 MG/4 ML VIAL IV PUSH (17:02)
[2020-09-26] MEDS: ENOXAPARIN 30 MG/0.3 ML SYRINGE SUB-Q (21:14)
--- NOTE | 2020-09-26 21:35 | PC.NURSE ---
pt resting in bed watching tv, dhiraj crackers given and fresh ice water, pt reports feeling much better, denies any other needs at this time, belongings within reach
[2020-09-26 23:30] VITALS: BP 119/48; PULSE 58; RESP 18; TEMP 36.1; O2SAT 100
--- NOTE | 2020-09-27 02:12 | PC.NURSE ---
pt resting in bed, no evidence of distress noted at this time, respirations even and regular
[2020-09-27 06:21] LABS: Basophils Absolute Auto 0.03 K/mm3 (0.00-0.10); Basophils Percent Auto 0.4 % (0.0-1.0); Eosinophils Absolute Auto 0.16 K/mm3 (0.02-0.50); Hematocrit 30.3 % (35.0-42.0); Hemoglobin 9.7 g/dL (11.7-13.8); Immature Granulocyte Absolute 0.09 K/mm3 (0.00-0.00); Immature Granulocyte Percent A 1.1 % (0.0-0.0); Lymphocytes Percent Auto 14.6 % (18.0-42.0); Mean Corpuscular Hemoglobin 29.1 pg (27.0-31.0); Mean Platelet Volume 10.6 fl (9.2-11.8); Monocytes Absolute Auto 0.53 K/mm3 (0.10-0.90); Monocytes Percent Auto 6.5 % (2.0-11.0); Neutrophils Absolute Auto 6.2 K/mm3 (1.7-7.2); Neutrophils Percent Auto 75.4 % (50.0-70.0); Platelet Count Result 198 K/mm3 (150-420); Red Blood Count 3.33 M/mm3 (4.20-5.40); Red Cell Distribution Width 16.1 % (11.6-14.4); White Blood Count 8.2 K/mm3 (4.8-10.8)
[2020-09-27 06:36] LABS: Alanine Aminotransferase 22 U/L (14-59); Alkaline Phosphatase 27 U/L (46-116); Anion Gap 7 mmol/L (8-16); Aspartate Amino Transferase < 10 U/L (15-37); Bilirubin,Total 0.8 mg/dL (0.00-1.00); Blood Urea Nitrogen 21 mg/dL (7-18); Calcium 8.7 mg/dL (8.5-10.1); Carbon Dioxide 33 mmol/L (21-32); Chloride 99 mmol/L (98-108); Estimated CRCL calculation 68 ml/min; Estimated Glomerular Filt Rate 50; Glucose 103 mg/dL (70-99); Osmolality Calculated 291 mOsm/kg (285-295); Potassium 3.4 mmol/L (3.5-5.1); Sodium 139 mmol/L (136-145)
[2020-09-27 06:40] LABS: BNP 279 pg/mL (0-100)
[2020-09-27 08:00] VITALS: BP 143/59; PULSE 62; RESP 18; TEMP 35.9; O2SAT 98
[2020-09-27] MEDS: POTASSIUM CHLORIDE 20 MEQ TABLET 40 MEQ PO (09:23)
[2020-09-27] MEDS: ENOXAPARIN 30 MG/0.3 ML SYRINGE SUB-Q (09:23)
[2020-09-27] MEDS: THERAPEUTIC MULTIVITAMINS/MINERALS TAB (*BKC) 1 TABLET PO (09:24)
[2020-09-27] MEDS: ASPIRIN 81 MG CHEWABLE TABLET PO (09:24)
[2020-09-27] MEDS: FUROSEMIDE 40 MG TABLET PO (09:24)
[2020-09-27] MEDS: PANTOPRAZOLE 40 MG TABLET PO (09:24)
[2020-09-27] MEDS: DULoxetine HCL 30 MG CAPSULE.DR 60 MG PO (09:24)
[2020-09-27] MEDS: predniSONE 20 MG TABLET PO (09:24)
[2020-09-27] MEDS: FOLIC ACID 1 MG TABLET PO (09:24)
--- NOTE | 2020-09-27 09:48 | PM.DS ---
DS: Admitting Diagnosis Admitting Diagnosis Admitting Diagnosis: Newly diagnosed congestive heart failure DS: Discharge Diagnosis Discharge Diagnosis (1) Congestive heart failure: Qualifiers: Heart failure chronicity: unspecified Heart failure type: unspecified Qualified Code(s): I50.9 - Heart failure, unspecified Code(s): I50.9 - Heart failure, unspecified Status: Acute Assessment and Plan: Patient will discharge home with Lasix 20 mg daily and potassium Patient educated on congestive heart failure (2) COPD exacerbation: Code(s): J44.1 - Chronic obstructive pulmonary disease with (acute) exacerbation Status: Acute Assessment and Plan: Patient will discharge home with inhaler (3) Knee effusion, right: Code(s): M25.461 - Effusion, right knee Status: Acute Assessment and Plan: Continue to Denny wrap, use knee immobilizer, ice and elevate (4) Depression: Code(s): F32.9 - Major depressive disorder, single episode, unspecified Status: Acute Assessment and Plan: Continue home medication (5) Acute renal failure: Code(s): N17.9 - Acute kidney failure, unspecified Status: Acute Assessment and Plan: Slightly elevated Possibly secondary to use of diuretics Will closely monitor Repeat CMP in 1week (6) Patellar fracture: Qualifiers: Encounter type: initial encounter Fracture alignment: nondisplaced Fracture morphology: unspecified fracture morphology Fracture type: closed Laterality: right Qualified Code(s): S82.001A - Unspecified fracture of right patella, initial encounter for closed fracture Code(s): S82.009A - Unspecified fracture of unspecified patella, initial encounter for closed fracture Status: Acute Assessment and Plan: CT of the knee indicates fracture of her patella and joint effusion of her right knee Knee brace while up and pain control. Patient will need to follow-up with orthopedics (7) Rheumatoid aortitis: Code(s): I01.1 - Acute rheumatic endocarditis Status: Acute Assessment and Plan: Follow-up in crossing watchman Continue prednisone (8) Respiratory distress: Code(s): R06.03 - Acute respiratory distress Status: Acute Assessment and Plan: Secondary to COPD versus congestive heart failure more than likely congestive heart failure Blood gas indicate respiratory Refer to COPD and congestive heart failure, (9) Elevated d-dimer: Code(s): R79.89 - Other specified abnormal findings of blood chemistry Status: Acute Assessment and Plan: Doppler and CTA negative for PE or DVT DS: Summary Hospital Course Reason for hospitalization: Shortness of breath/dyspnea Hospital Course: This is a 70-year-old female that was sent to our emergency department by her primary care physician for increased shortness of breath. Patient has a past medical history of COPD and rheumatoid arthritis. Patient was recently discharged from our facility on 09/20/2020 with a fractured left patella and joint effusion of the right knee. Apparently patient shortness of breath increased since discharge. Patient primary care physician collected a D-dimer and it was found to be elevated. Patient was given diagnostic test to rule out PE and DVT both CTA in Doppler negative for PE/DVT. Patient's BNP found to be 279. Patient did receive Lasix as inpatient. Patient notes that her condition has greatly improved since the use of Lasix. Patient noted that she has not been moving around very much at home she did attempt to get her to open the door for her home health aide and at that point she noticed that she was extremely short of breath. Patient's WBC is 8.2 hemoglobin 9.7 hematocrit 30.3, platelets 198, sodium 139, potassium 3.4, BUN 21, creatinine 1.08, BUN to 79, Covid negative, blood gas respiratory alkalosis. The patient denies SOB, CP, palp
--- NOTE | 2020-09-27 14:55 | ECHO_ITS ---
Patient Info Name: Ariadne Okeefe Age: 70 years : 1950 Gender: Female Ht: 70 in Wt: 229 lbs BSA: 2.30 m2 BP: 143 / 59 mmHg Technical Quality: Good Exam Date: 09/27/2020 1:11 PM Exam Location: [facility] Patient Status: Inpatient Admit Date: 09/26/2020 Staff Ordering Physician: Jarrett Hunt MD Commercial Insurance Underwriter: Jeffrey Fleming RDCS, RT Attending Provider: Jarrett Hunt MD Referring Physician: Gilbert BONILLA; Exam Type: CA echo doppler color flow Study Info Indications Z95.2 - Presence of prosthetic heart valve I50.9 - Heart failure, unspecified Complete two-dimensional, color flow and Doppler transthoracic echocardiogram is performed. Strain analysis performed. Summary 1. Complete two-dimensional, color flow and Doppler transthoracic echocardiogram is performed. 2. Left ventricular chamber dimension is normal. 3. Left ventricular systolic function is normal, estimated at 60-65%. 4. There is moderately increased left ventricular wall thickness. 5. The left ventricular diastolic function is abnormal. 6. E/e' 40 is significantly elevated. 7. Global longitudinal strain is normal at -19.4%. 8. Left atrial chamber dimension is moderately enlarged. 9. Mitral valve is not well visualized. 10. Bioprosthetic mitral valve. 11. The mitral valve has moderately calcified annulus. 12. There is mild-moderate mitral valve stenosis. There is turbulent mitral valve inflow suggestive of stenosis. MV mean gradient 8 mmHg and peak gradient 22 mHg. MV area by VTI is 1.2 cm2 and by Pt1/2 is 2.5 cm2. 13. There is moderate tricuspid valve regurgitation. 14. Moderate pulmonary hypertension, estimated pulmonary arterial systolic pressure is 61 mmHg. 15. Normal inferior vena cava with >50% collapse upon inspiration consistent with elevated right atrial pressure, 10 mmHg. Left Ventricle E/e' 40 is significantly elevated. Global longitudinal strain is normal at -19.4%. Left ventricular chamber dimension is normal. Left ventricular systolic function is normal, estimated at 60-65%. There is moderately increased left ventricular wall thickness. The left ventricular diastolic function is abnormal. Right Ventricle Right ventricular chamber dimension is normal. Right ventricular systolic function is normal. Left Atria Left atrial chamber dimension is moderately enlarged. Right Atria Right atrial chamber dimension is normal. Aortic Valve The aortic valve is trileaflet. There is no aortic valve stenosis. There is no aortic valve regurgitation. Pulmonic Valve There is no pulmonic regurgitation. Mitral Valve The mitral valve has moderately calcified annulus. There is mild-moderate mitral valve stenosis. There is turbulent mitral valve inflow suggestive of stenosis. MV mean gradient 8 mmHg and peak gradient 22 mHg. MV area by VTI is 1.2 cm2 and by Pt1/2 is 2.5 cm2. Mitral valve is not well visualized. Bioprosthetic mitral valve. There is no mitral valve regurgitation. Tricuspid Valve There is moderate tricuspid valve regurgitation. Moderate pulmonary hypertension, estimated pulmonary arterial systolic pressure is 61 mmHg. Pericardium/Pleural There is no pericardial effusion. Inferior Vena Cava Normal inferior vena cava with >50% collapse upon inspiration consistent with elevated right atrial pressure, 10 mmHg. Aorta The aortic root size at the sinus of Valsalva is normal. Left Ventricular Outflow Tract
--- NOTE | 2020-09-27 15:34 | PC.NURSE ---
Patient discharged to home. Transported off of floor via wheelchair by daughter patricia meadows. #[id number] removed, catheter intact. Discharge instructions explained to patient. Verbalized understanding.
--- NOTE | 2020-09-30 11:44 | PC.NURSE ---
Pt states she received and understood her discharge instructions. Has no other comments.
== END 2020-09-27 13:20 | disposition home health service (06) ==
LOC: CHSED 15:49 → CHS2ND 15:57
PROVIDERS: Admitting Provider Emergency Medicine; Emergency Provider Emergency Medicine; PCP Internal Medicine; Visit Provider Emergency Medicine
DX: J44.1 Chronic obstructive pulmonary disease with (acute) exacerbation (principal); I50.9 Heart failure, unspecified; I36.1 Nonrheumatic tricuspid (valve) insufficiency; I34.2 Nonrheumatic mitral (valve) stenosis; I27.20 Pulmonary hypertension, unspecified; M06.9 Rheumatoid arthritis, unspecified; M79.7 Fibromyalgia; Z87.891 Personal history of nicotine dependence; Z95.2 Presence of prosthetic heart valve
CPT/HCPCS: 36415; 36600; 71275; 80053; 81001; 82805; 83735; 83880; 84484; 85025; 85380; 85610; 86140; 87426; 93005; 93306; 93970; 96372; 96374; 97161; 97165; 97530; 99285; A9270; C9803; G0378; J1650; J1940; J7512; Q9967

== ENCOUNTER 2020-10-18 14:55 | Outpatient (CLI) | payer MEDICARE, OTHER, SELFPAY ==
--- NOTE | ~2020-10-18 | XR_ITS ---
XR lumbar spine 2-3V DATE: 10/18/2020 15:30 INDICATION: Low back pain radiating to left leg TECHNIQUE: AP, lateral, coned lateral lumbosacral views COMPARISON: None FINDINGS: There is prominent diffuse osteopenia. No fracture or bone destruction. The lumbar pedicles are intact. L1-2 through L4-5 interspaces are relatively well preserved. There is moderately severe degenerative disc disease at L5-S1. The sacroiliac joints are intact. Surgical clips overlie the pelvis. There is a total hip arthroplasty. There is calcification of the abdominal aorta prominent diffuse osteopenia IMPRESSION: Diffuse osteopenia Moderately severe degenerative disc disease at L5-S1 Reviewed, dictated and finalized at location A.
== END 2020-10-18 14:56 | disposition home or self-care (01) ==
LOC: CHSLAB 14:57
PROVIDERS: PCP Internal Medicine; Visit Provider Internal Medicine
DX: M54.5 Low back pain (principal)
CPT/HCPCS: 72100

== ENCOUNTER 2020-11-05 12:52 | Outpatient (CLI) | payer MEDICARE, OTHER, SELFPAY | END 2020-11-05 12:53 | disposition home or self-care (01) | LOC: CHSCARD 12:53 | PROVIDERS: PCP Internal Medicine; Visit Provider Internal Medicine | DX: R06.00 Dyspnea, unspecified (principal) | CPT/HCPCS: 94060; 94726; 94729 ==

== ENCOUNTER 2021-05-18 10:59 | Inpatient (IN) | payer MEDICARE, OTHER, SELFPAY ==
[2021-05-18] VITALS (14 sets, daily range): BP systolic 126–160; BP diastolic 58–116; PULSE 59–88; RESP 16–20; TEMP 36.1–36.9; O2SAT 86–98; BMI 31.0
--- NOTE | ~2021-05-18 | CT_ITS ---
EXAMINATION: CTA chest PE protocol DATE: 05/18/2021 12:49 INDICATION: Hypoxia and shortness of breath TECHNIQUE: Computed tomography angiography (CTA) of the chest was performed with 100 mL Omnipaque-350 intravenous contrast timed to evaluate the pulmonary arteries. Coronal maximum intensity projection 3D-reconstructions were created by the technologist. The dose-length product (DLP) was 349.14 mGy-cm. Automated exposure control and iterative reconstruction technique were employed. COMPARISON: 09/26/2020 FINDINGS: The pulmonary arteries are well-opacified. No pulmonary embolism is identified. There is a chronic large loculated right pleural effusion with associated passive atelectasis of the right lung. There is no pneumothorax. No pathologically enlarged thoracic lymph nodes are identified. The heart size is normal. Changes of mitral valve replacement are noted. There is moderate thoracic spondylosis . IMPRESSION: 1. No pulmonary embolism or acute cardiopulmonary abnormality. 2. Chronic large loculated right pleural effusion. Reviewed, dictated and finalized at location A. [facility] [employer]
--- NOTE | 2021-05-18 11:17 | ECG_ITS ---
Measurements Intervals [place] Rate: 78 P: 95 NV: 131 QRS: 60 QRSD: 81 T: 89 QT: 398 QTc: 453 Interpretive Statements SINUS RHYTHM BORDERLINE ST-T WAVE ABNORMALITY- DIFFUSE LEADS BASELINE ARTIFACT- I, III, AVR, AVL, AVF, V3-V5 BORDERLINE ECG Electronically Signed On 05-19-2021 8:58:09 MACHINE SHORTHAND TEACHER by Tulio Kate D.O.
--- NOTE | 2021-05-18 11:38 | ED.SOB ---
HPI - SOB/Dyspnea General Chief Complaint: Upper Respiratory Infection Stated Complaint: cough,dyspnea, vomiting, chest pain Time Seen by Provider: 05/18/21 11:20 Source: patient Mode of arrival: ambulatory Limitations: no limitations History of Present Illness HPI Narrative: 71-year-old woman with a history of mitral valve replacement, possible COPD, and congestive heart failure comes in today complaining of 2 days of feeling ill, shortness of breath and chest pain with coughing. She had an episode of vomiting this morning. She denies any sick contacts and denies ankle swelling, fever, chills, diarrhea, dysuria, abdominal pain, or ageusia. Patient has had the COVID vaccine. MD elicited complaint: shortness of breath and cough Pertinent past history: COPD and congestive heart failure Onset (ago): minute(s) Timing: constant and progressively worsening Severity: severe Exacerbating factors: exertion Relieving factors: rest Known history of: congestive heart failure and other ( Restrictive lung disease) Associated symptoms: chest pain ( Only with cough), cough, wheezing and nausea/vomiting Treatment prior to arrival: bronchodilator Related Data Home oxygen amount: none Home Medications Medication Instructions Recorded Confirmed Women's One Daily 1 tablet PO DAILY 09/19/20 09/26/20 aspirin 81 mg PO DAILY 09/19/20 09/26/20 duloxetine 60 mg PO DAILY 09/19/20 09/26/20 folic acid 1 mg PO DAILY 09/19/20 09/26/20 methotrexate sodium 2.5 mg PO DAILY 09/19/20 09/26/20 pantoprazole 40 mg PO DAILY 09/19/20 09/26/20 Allergies Allergy/AdvReac Type Severity Reaction Status Date / Time nizatidine Allergy Severe Verified 08/04/16 18:21 Review of Systems Constitutional: Constitutional: Denies chills, Denies fever(s) and Denies weakness Eyes: Eyes: Denies change in vision and Denies photophobia ENT: Denies nasal congestion and Denies sore throat Cardiovascular: Cardiovascular: Denies chest pain and Denies radiating jaw, neck or arm pain Respiratory: Respiratory: Reports as per HPI, Reports cough, Reports dyspnea and Reports wheezing Gastrointestinal: Gastrointestinal: Denies abdominal pain, Denies diarrhea, Reports nausea and Reports vomiting Genitourinary: Genitourinary: Denies nocturia and Denies dysuria Musculoskeletal: Musculoskeletal: Denies arthralgias and Denies joint swelling Integumentary/Breasts: Skin/Breast: Denies pruritus, Denies erythema and Denies rash Neurologic: Denies vertigo, Denies dizziness, Denies syncope and Denies weakness Allergic/Immunologic: Allergic/Immunologic: Denies lip swelling and Denies throat swelling [facility] Past Medical History Medical History (Updated 05/18/21 @ 13:38 by Parrish Okeefe MD) Calculus of gallbladder with chronic cholecystitis without obstruction Congestive heart failure Encounter for surgical aftercare following surgery of digestive system GERD (gastroesophageal reflux disease) Incisional hernia without obstruction or gangrene Surgical History Surgical History (Updated 05/18/21 @ 11:47 by Parrish Okeefe MD) Mitral valve replaced Family History Family History Other Diabetes mellitus Malignant neoplasm of prostate Social History Social History Smoking packs per day: 1 Smoking cigarettes per day: 20.0 Smoking status: Former smoker Tobacco type: cigarettes Smoking end date: 07/05/90 Alcohol intake: current Drinks per week: 2 Substance use: never Gender identity (if verbalized by the patient): Female Sexual Orientation (if Verbalized by the Patient): Straight or Heterosexual Spiritual care concerns: No Exam Const: General: alert and ill appearing acutely ( Mild) Orientation/consciousness: patient oriented x3 Limitations: no limitations Other: moderate acute distress. HENMT: Head: normal to inspection Ears: ex
[2021-05-18 11:49] LABS: Base Excess ABG 1.9 mmol/L (0-2); HCO3 ABG 26.6 mmol/L (23-29); Oxygen Content ABG 17.3 %vol (16.0-22.0); Oxygen Saturation ABG 96.6 % (95-97); Oxyhemoglobin 94.9 % (94-100); PCO2 ABG 41.8 mmHg (35-45); Total Hemoglobin 12.9 g/dL (12.0-18.0); pH ABG 7.42 (7.35-7.45)
[2021-05-18 11:54] LABS: Basophils Absolute Auto 0.05 K/mm3 (0.00-0.10); Basophils Percent Auto 0.6 % (0.0-1.0); Eosinophils Absolute Auto 0.19 K/mm3 (0.02-0.50); Eosinophils Percent Auto 2.5 % (1.0-6.0); Hematocrit 39.3 % (35.0-42.0); Hemoglobin 12.5 g/dL (11.7-13.8); Immature Granulocyte Absolute 0.04 K/mm3 (0.00-0.00); Immature Granulocyte Percent A 0.5 % (0.0-0.0); Immature Platelet Fraction Pct 3.1 % (1.0-7.0); Lymphocytes Absolute Auto 0.59 K/mm3 (1.10-4.50); Lymphocytes Percent Auto 7.7 % (18.0-42.0); Mean Corpuscular HGB Conc 31.8 g/dL (32.0-36.0); Mean Corpuscular Hemoglobin 28.2 pg (27.0-31.0); Mean Corpuscular Volume 88.5 fL (78.0-102.0); Mean Platelet Volume 10.8 fl (9.2-11.8); Monocytes Absolute Auto 0.94 K/mm3 (0.10-0.90); Monocytes Percent Auto 12.2 % (2.0-11.0); Neutrophils Absolute Auto 5.9 K/mm3 (1.7-7.2); Neutrophils Percent Auto 76.5 % (50.0-70.0); Platelet Count Result 117 K/mm3 (150-420); Red Blood Count 4.44 M/mm3 (4.20-5.40); Red Cell Distribution Width 14.7 % (11.6-14.4); White Blood Count 7.7 K/mm3 (4.8-10.8)
[2021-05-18 11:55] LABS: Device NASAL CANNULA; Modified Allen's Test Pass; Site Drawn RIGHT RADIAL
[2021-05-18 12:11] LABS: D Dimer 1.89 mg/L (0.19-0.50)
[2021-05-18] MEDS: methylPREDNISolone SOD SUCC 40 MG VIAL 80 MG IV PUSH (12:11)
[2021-05-18] MEDS: ALBUTEROL SULFATE (*SP) INHALER 4 PUFF INHALATION (12:11)
[2021-05-18 12:14] LABS: Alanine Aminotransferase 15 U/L (14-59); Albumin Level 3.4 g/dL (3.4-5.0); Alkaline Phosphatase 47 U/L (46-116); Anion Gap 9 mmol/L (8-16); Aspartate Amino Transferase 11 U/L (15-37); Bilirubin,Total 1.5 mg/dL (0.00-1.00); Blood Urea Nitrogen 22 mg/dL (7-18); Calcium 9.1 mg/dL (8.5-10.1); Carbon Dioxide 27 mmol/L (21-32); Chloride 101 mmol/L (98-108); Estimated CRCL calculation 64 ml/min; Estimated Glomerular Filt Rate > 60; Glucose 143 mg/dL (70-99); Magnesium 1.9 mg/dL (1.8-2.4); NT Pro B Type Natriuretic Pept 1951 pg/mL (0-125); Osmolality Calculated 289 mOsm/kg (285-295); Potassium 3.9 mmol/L (3.5-5.1); Sodium 137 mmol/L (136-145); Total Protein 6.6 g/dL (6.4-8.2); Troponin I 11.6 ng/L (0.00-60.4)
[2021-05-18 12:30] LABS: Influenza A QL RT-PCR Negative (Negative); Influenza B QL RT-PCR Negative (Negative); SARS-CoV-2 RNA PCR Negative (Negative)
--- NOTE | 2021-05-18 14:24 | PM.IMHP ---
H&P: HPI History of Present Illness Date/Time: 05/18/21 14:24 Opal Okeefe is a 71 year old female who is being admitted under Observation for COPD and CHF Exacerbation. Pt states that about 3 years ago she started having difficulties with breathing which have been slowly and progressively getting worse. About 1 year ago she started being monitored for a Pleural Effusion on her Right Lung. CTA reading by Dr. Seamus Coulter reports NO PE and Chronic Large Loculated Right Pleural Effusion. It was not clear in the interview how long or if the Pt actually was diagnosed with COPD. She stopped smoking 30 years ago and was smoking less than 1 PPD per the son. He also reports that the Pt does not use her Albuterol very often. Pt states she has had a 6 minute walk test in the past and failed but was never ordered home oxygen. Pt does admit to being diagnosed with CHF in the past. Pt has been on Methotrexate for about 10 years or so. I will talk with Pts Privacy Attorney and Penal Officer tomorrow. I requested the CTA to be pushed to [place] and if this is not possible then to burn a CD for family to take to next appointment. Pt states that she is unable to walk from her home to her car without becoming SOB. She also states her productive cough produced yellow frothy sputum. Pt states she has had some chest pain in the middle of the chest and states this is from coughing. She also stated her breathing was better once transferred to the bed on the floor but her oxygen was actually not on at the time. She admitted that she was not being truthful about her breathing. We talked about helping each other with her health care and she agreed. Chief Complaint: SOB Review of Systems Review of Systems: All systems reviewed & are unremarkable except as noted in HPI and below [facility] Past Medical History Medical History Calculus of gallbladder with chronic cholecystitis without obstruction Congestive heart failure Encounter for surgical aftercare following surgery of digestive system GERD (gastroesophageal reflux disease) Incisional hernia without obstruction or gangrene Surgical History Surgical History Mitral valve replaced Family History Family History Other Diabetes mellitus Malignant neoplasm of prostate Social History Social History Smoking packs per day: 1 Smoking cigarettes per day: 20.0 Smoking status: Former smoker Tobacco type: cigarettes Smoking end date: 07/05/90 Alcohol intake: current Drinks per week: 2 Substance use: never Gender identity (if verbalized by the patient): Female Sexual Orientation (if Verbalized by the Patient): Straight or Heterosexual Spiritual care concerns: No Meds Home Medications and Allergies Home Medications Medication Instructions Recorded Confirmed Type duloxetine 60 mg PO DAILY 09/19/20 05/18/21 History folic acid 1 mg PO DAILY 09/19/20 05/18/21 History methotrexate sodium 5 mg PO WEEKLY 09/19/20 05/18/21 History pantoprazole 40 mg PO DAILY 09/19/20 05/18/21 History albuterol sulfate 1 inh INHALATION QID PRN #6.7 g 09/27/20 05/18/21 Rx furosemide 40 mg PO QAM #30 tablet 09/27/20 05/18/21 Rx prednisone 5 mg PO DAILY 05/18/21 05/18/21 History Allergies Allergy/AdvReac Type Severity Reaction Status Date / Time nizatidine Allergy Severe Verified 08/04/16 18:21 Vital Signs Vital Signs - 24 hr 05/18/21 11:28 05/18/21 12:10 05/18/21 12:15 Temperature 97.7 F Pulse Rate 81 82 88 Respiratory Rate 20 20 20 Blood Pressure 160/70 H 152/61 H Pulse Oximetry 86 L 98 98 05/18/21 13:15 05/18/21 14:00 05/18/21 14:22 Temperature Pulse Rate 70 74 Respiratory Rate 20 20 Blood Pressure 157/78 H 134/116 H Pulse Oximetry 92 89 L 94 Exam Const: Ge
[2021-05-18] MEDS: FUROSEMIDE INJ 40 MG/4 ML VIAL IV PUSH (14:37)
[2021-05-18] MEDS: ENOXAPARIN 30 MG/0.3 ML SYRINGE SUB-Q (16:28)
[2021-05-18] MEDS: POTASSIUM CHLORIDE 20 MEQ TABLET 40 MEQ PO (17:28)
[2021-05-18 18:15] LABS: Troponin I 9.4 ng/L (0.00-60.4)
[2021-05-18] MEDS: ALBUTEROL SULFATE NEB 2.5 MG/3 ML INH INHALATION (23:49)
[2021-05-19] VITALS (11 sets, daily range): BP systolic 132–159; BP diastolic 52–67; PULSE 53–76; RESP 18–20; TEMP 35.9–36.5; O2SAT 97–100
[2021-05-19] MEDS: methylPREDNISolone SOD SUCC 40 MG VIAL IV PUSH ×3 (00:08→18:20)
[2021-05-19 00:49] LABS: Troponin I 8.3 ng/L (0.00-60.4)
[2021-05-19] MEDS: guaiFENesin/CODEINE 100/10 MG 5 ML SYRUP 10 ML PO (01:42)
[2021-05-19 06:19] LABS: Basophils Absolute Auto 0.01 K/mm3 (0.00-0.10); Basophils Percent Auto 0.2 % (0.0-1.0); Hematocrit 39.7 % (35.0-42.0); Hemoglobin 12.6 g/dL (11.7-13.8); Immature Granulocyte Absolute 0.05 K/mm3 (0.00-0.00); Immature Granulocyte Percent A 0.9 % (0.0-0.0); Immature Platelet Fraction Pct 3.5 % (1.0-7.0); Lymphocytes Absolute Auto 0.32 K/mm3 (1.10-4.50); Lymphocytes Percent Auto 5.6 % (18.0-42.0); Mean Corpuscular HGB Conc 31.7 g/dL (32.0-36.0); Mean Corpuscular Hemoglobin 28.1 pg (27.0-31.0); Mean Corpuscular Volume 88.6 fL (78.0-102.0); Mean Platelet Volume 11.2 fl (9.2-11.8); Monocytes Absolute Auto 0.17 K/mm3 (0.10-0.90); Neutrophils Absolute Auto 5.2 K/mm3 (1.7-7.2); Neutrophils Percent Auto 90.3 % (50.0-70.0); Platelet Count Result 118 K/mm3 (150-420); Red Blood Count 4.48 M/mm3 (4.20-5.40); Red Cell Distribution Width 14.3 % (11.6-14.4); White Blood Count 5.8 K/mm3 (4.8-10.8)
[2021-05-19 06:40] LABS: Alanine Aminotransferase 15 U/L (14-59); Albumin Level 3.3 g/dL (3.4-5.0); Alkaline Phosphatase 43 U/L (46-116); Anion Gap 7 mmol/L (8-16); Aspartate Amino Transferase 10 U/L (15-37); Blood Urea Nitrogen 28 mg/dL (7-18); Calcium 9.2 mg/dL (8.5-10.1); Carbon Dioxide 29 mmol/L (21-32); Chloride 102 mmol/L (98-108); Estimated CRCL calculation 58 ml/min; Estimated Glomerular Filt Rate 56; Glucose 174 mg/dL (70-99); NT Pro B Type Natriuretic Pept 1505 pg/mL (0-125); Osmolality Calculated 295 mOsm/kg (285-295); Potassium 4.8 mmol/L (3.5-5.1); Sodium 138 mmol/L (136-145); Total Protein 6.6 g/dL (6.4-8.2)
[2021-05-19] MEDS: FUROSEMIDE INJ 40 MG/4 ML VIAL IV PUSH (08:49)
[2021-05-19] MEDS: METHOTREXATE 2.5 MG TAB (*CHEMO) 5 MG PO ×2 (08:49→18:21)
[2021-05-19] MEDS: FUROSEMIDE INJ 40 MG/4 ML VIAL 20 MG IV PUSH ×2 (08:50→18:20)
[2021-05-19] MEDS: ENOXAPARIN 30 MG/0.3 ML SYRINGE SUB-Q (08:50)
[2021-05-19] MEDS: POTASSIUM CHLORIDE 20 MEQ TABLET 40 MEQ PO ×2 (08:50→18:20)
[2021-05-19] MEDS: DULoxetine HCL 30 MG CAPSULE.DR 60 MG PO (08:50)
[2021-05-19] MEDS: PANTOPRAZOLE 40 MG TABLET PO (08:51)
[2021-05-19] MEDS: FOLIC ACID 1 MG TABLET PO (08:51)
--- NOTE | 2021-05-19 17:43 | PM.IMPN ---
Progress Note: A&P Assessment and Plan (1) CHF (congestive heart failure): Qualifiers: Heart failure chronicity: acute on chronic Heart failure type: unspecified Qualified Code(s): I50.9 - Heart failure, unspecified Code(s): I50.9 - Heart failure, unspecified Status: Acute Assessment and Plan: BNP 1950, will monitor, IV Lasix 40 mg once in ER, will continue with 20 mg IV BID, monitor VS, serial troponin initial was 11.6 05/19/2021 BNP decreased to 1505, breathing well, serial trop 11.6, 9.4, 8.3 (2) Elevated d-dimer: Code(s): R79.89 - Other specified abnormal findings of blood chemistry Status: Acute Assessment and Plan: CTA report: IMPRESSION: 1. No pulmonary embolism or acute cardiopulmonary abnormality. 2. Chronic large loculated right pleural effusion. Prophylactic Lovenox (3) Thrombocytopenia: Code(s): D69.6 - Thrombocytopenia, unspecified Status: Acute Assessment and Plan: Currently 117, will monitor 05/19/2021 Plt 118 (4) COPD exacerbation: Code(s): J44.1 - Chronic obstructive pulmonary disease with (acute) exacerbation Status: Acute Assessment and Plan: Pt has Solu-Medrol scheduled and Albuterol Nebs Q4H PRN, supplemental oxygen at 3L/min with SpO2 93%, will call shipping order clerk Wednesday morning. 05/19/2021 Continue as noted above, no changes needed. Subjective Date/time seen: 05/19/21 17:43 Pt states she is doing well. No SOB except with moving about which is not much. She is looking forward to her transfer to [facility]. She also found out that her Insurance Billing Clerk does not practice at [facility] which I though she did since she is at [facility]. She is not having any pain at this time. No complaints other than difficulty eating with her NC on. Review of Systems Review of Systems: All systems reviewed & are unremarkable except as noted in HPI and below Exam Const: General: cooperative, comfortable, no acute distress, well developed, alert, awake and Physically active Nutritional Appearance: overweight Resp: Effort & Inspection: normal respiratory effort Auscultation: breath sounds absent on the right (Lower d/t loculated pulmonary effusion) and diminished lung sounds on the right in the upper lung alva Cardio: Rate: regular rate Heart sounds: S1 normal heart sound present and S2 normal heart sound present GI: GI Palp: Yes Soft to palpation and No Tenderness to palpation present (GI) Auscultation: normal bowel sounds Skin: General skin exam: normal color and dry skin Neuro: General: oriented to person, oriented to place, oriented to time and CN's II-XI intact bilaterally (grossly intact) Cognition (Neuro): normal cognition Speech: normal speech Motor exam (neuro): 5/5 motor strength present throughout Extrem: General: full ROM, no pedal edema and no calf tenderness Psych: Appearance: grossly normal Mental Status: mental status grossly normal Speech and movement: Normal speech and movement present Affect: normal affect Attitude: cooperative Thought process: Normal thought process present Objective Data Vital Signs Vital Signs: Vital Signs - 24 hr 05/18/21 20:00 05/18/21 22:45 05/18/21 23:44 Temperature 96.9 F L 97.1 F L Pulse Rate 78 59 L 62 Respiratory Rate 20 18 20 Blood Pressure 134/60 143/58 H Pulse Oximetry 98 97 86 L 05/18/21 23:47 05/18/21 23:53 05/19/21 00:06 Temperature Pulse Rate 62 63 53 L Respiratory Rate 20 Blood Pressure Pulse Oximetry 92 100 05/19/21 03:09 05/19/21 04:45 05/19/21 04:50 Temperature 96.8 F L Pulse Rate 67 67 Respiratory Rate 18 Blood Pressure 132/59 L Pulse Oximetry 98 99 05/19/21 07:40 05/19/21 08:00 05/19/21 12:00 Temperature 96.7 F L 96.9 F L Pulse Rate 75 75 76 Respiratory Rate 18 18 Blood Pressure 136/52 L 135/59 L Pulse Oximetry 100 98 05/19/21 15:50 05/19/21 16:25 Temperature 97.1 F L Pulse Rate 71 71 Respiratory Rate 18 Bloo
--- NOTE | 2021-05-19 19:20 | PC.NURSE ---
Completed bedside change of shift report. Patient is resting comfortably in bed, talking to a visitor. She stated that she was not in any pain, and did not need anything at that time. Patient's oxygen has been reduced to 2L, and her O2 sats have stayed in the 90's. Patient states that she feels much better today.
--- NOTE | 2021-05-19 22:10 | PC.NURSE ---
Completed patient rounding. Patient is sleeping comfortably in bed, with no signs of pain or discomfort.
[2021-05-20] VITALS: BP 130/48; PULSE 64; PULSE 65; RESP 20; TEMP 36.4; O2SAT 97
[2021-05-20] MEDS: methylPREDNISolone SOD SUCC 40 MG VIAL IV PUSH ×2 (01:25→08:23)
[2021-05-20] MEDS: guaiFENesin/CODEINE 100/10 MG 5 ML SYRUP 10 ML PO (01:32)
--- NOTE | 2021-05-20 02:20 | PC.NURSE ---
Completed patient rounding. Patient is sleeping comfortably in bed, with no signs of pain or discomfort.
[2021-05-20 04:00] VITALS: BP 144/65; PULSE 58; PULSE 63; RESP 14; TEMP 35.9; O2SAT 97
[2021-05-20 05:27] LABS: Hemoglobin 13.4 g/dL (11.7-13.8); Mean Corpuscular HGB Conc 30.5 g/dL (32.0-36.0); Mean Corpuscular Hemoglobin 27.4 pg (27.0-31.0); Mean Platelet Volume 11.1 fl (9.2-11.8); Platelet Count Result 190 K/mm3 (150-420); Red Blood Count 4.89 M/mm3 (4.20-5.40); Red Cell Distribution Width 14.3 % (11.6-14.4); White Blood Count 12.3 K/mm3 (4.8-10.8)
[2021-05-20 05:43] LABS: Anion Gap 7 mmol/L (8-16); Blood Urea Nitrogen 40 mg/dL (7-18); Calcium 9.4 mg/dL (8.5-10.1); Carbon Dioxide 31 mmol/L (21-32); Chloride 102 mmol/L (98-108); Estimated CRCL calculation 52 ml/min; Estimated Glomerular Filt Rate 49; Glucose 158 mg/dL (70-99); Osmolality Calculated 302 mOsm/kg (285-295); Potassium 4.9 mmol/L (3.5-5.1); Sodium 140 mmol/L (136-145)
--- NOTE | 2021-05-20 06:20 | PC.NURSE ---
Completed patient rounding. Patient is sleeping comfortably in bed, with no signs of pain or discomfort.
[2021-05-20 08:00] VITALS: BP 150/68; PULSE 69; PULSE 74; RESP 14; TEMP 35.8; O2SAT 100
[2021-05-20] MEDS: FUROSEMIDE INJ 40 MG/4 ML VIAL 20 MG IV PUSH (08:23)
[2021-05-20] MEDS: ENOXAPARIN 30 MG/0.3 ML SYRINGE SUB-Q (08:24)
[2021-05-20] MEDS: DULoxetine HCL 30 MG CAPSULE.DR 60 MG PO (08:24)
[2021-05-20] MEDS: POTASSIUM CHLORIDE 20 MEQ TABLET 40 MEQ PO (08:24)
[2021-05-20] MEDS: FOLIC ACID 1 MG TABLET PO (08:24)
[2021-05-20] MEDS: PANTOPRAZOLE 40 MG TABLET PO (08:24)
[2021-05-20 10:19] LABS: NT Pro B Type Natriuretic Pept 1064 pg/mL (0-125)
[2021-05-20 12:00] VITALS: BP 138/64; PULSE 77; RESP 16; TEMP 36.1; O2SAT 96
--- NOTE | 2021-05-20 12:36 | P.DS_ITS ---
DS: Admitting Diagnosis Discharge Date 05/20/2021 <Sandy IselaAUDRA Youngblood - Last Filed: 05/21/21 11:04> Admitting Diagnosis Congestive heart failure and COPD <AUDRA Glez - Last Filed: 05/21/21 11:04> DS: Discharge Diagnosis Discharge Diagnosis (1) CHF (congestive heart failure): Qualifiers: Heart failure chronicity: acute on chronic Heart failure type: unspecified Qualified Code(s): I50.9 - Heart failure, unspecified <Sandy IselaAUDRA Youngblood - Last Filed: 05/21/21 11:04> Code(s): I50.9 - Heart failure, unspecified <AUDRA Glez - Last Filed: 05/21/21 11:04> Status: Acute <Sandy IselaAUDRA Youngblood - Last Filed: 05/21/21 11:04> Assessment and Plan: BNP 1950, will monitor, IV Lasix 40 mg once in ER, will continue with 20 mg IV BID, monitor VS, serial troponin initial was 11.6 05/19/2021 BNP decreased to 1505, breathing well, serial trop 11.6, 9.4, 8.3 * [id number] * CTA does not indicate pulmonary edema * Secondary to tight mitral valve * Patient will need to follow-up with monumental stonemason <AUDRA Glez - Last Filed: 05/21/21 11:04> (2) Elevated d-dimer: Code(s): R79.89 - Other specified abnormal findings of blood chemistry <AUDRA Glez - Last Filed: 05/21/21 11:04> Status: Acute <AUDRA Glez - Last Filed: 05/21/21 11:04> Assessment and Plan: CTA report: IMPRESSION: 1. No pulmonary embolism or acute cardiopulmonary abnormality. 2. Chronic large loculated right pleural effusion. Prophylactic Lovenox <AUDRA Glez - Last Filed: 05/21/21 11:04> (3) Thrombocytopenia: Code(s): D69.6 - Thrombocytopenia, unspecified <AUDRA Glez - Last Filed: 05/21/21 11:04> Status: Acute <Sandy Cornelius TRANSCRIBING OPERATOR HEAD-C - Last Filed: 05/21/21 11:04> Assessment and Plan: Currently 117, will monitor 05/19/2021 Plt 118 <Sandy Cornelius TRANSCRIBING OPERATOR HEAD-C - Last Filed: 05/21/21 11:04> (4) COPD exacerbation: Code(s): J44.1 - Chronic obstructive pulmonary disease with (acute) exacerbation <Sandy CorneliusNIKI-C - Last Filed: 05/21/21 11:04> Status: Acute <Sandy Cornelius TRANSCRIBING OPERATOR HEAD-C - Last Filed: 05/21/21 11:04> Assessment and Plan: Pt has Solu-Medrol scheduled and Albuterol Nebs Q4H PRN, supplemental oxygen at 3L/min with SpO2 93%, will call stonework tracer Wednesday. 05/19/2021 Continue as noted above, no changes needed. * Day of discharge within normal limits <Sandy Hernadez MED CorneliusC - Last Filed: 05/21/21 11:04> (5) Restrictive airway disease: Code(s): J98.4 - Other disorders of lung <Kayodeanderson IselaMED YoungbloodC - Last Filed: 05/21/21 11:04> Status: Acute <Sandy CorneliusMEDC - Last Filed: 05/21/21 11:04> Assessment and Plan: * Secondary to right large pleural effusion * Monitored by patient care physician <AUDRA Glez - Last Filed: 05/21/21 11:04> (6) Chronic cough: Code(s): R05.3 - Chronic cough <Sandy WeissNIKI Youngblood-C - Last Filed: 05/21/21 11:04> Status: Acute <Kayodeanderson IselaAUDRA Youngblood - Last Filed: 05/21/21 11:04> Assessment and Plan: * Discharged with guaifenesin with codeine <NIKI Glez-C - Last Filed: 05/21/21 11:04> DS: Summary Hospital Course Reason for hospitalization: Shortness of breath, congestive heart failure <AUDRA Glez - Last Filed: 05/21/21 11:04> Hospital Course: Opal Okeefe is a 71 year old female who is being admitted un
--- NOTE | 2021-05-20 12:36 | PM.DS ---
DS: Admitting Diagnosis Discharge Date 05/20/2021 <Sandy IselaAUDRA Youngblood - Last Filed: 05/21/21 11:04> Admitting Diagnosis Congestive heart failure and COPD <AUDRA Glez - Last Filed: 05/21/21 11:04> DS: Discharge Diagnosis Discharge Diagnosis (1) CHF (congestive heart failure): Qualifiers: Heart failure chronicity: acute on chronic Heart failure type: unspecified Qualified Code(s): I50.9 - Heart failure, unspecified <Sandy IselaAUDRA Youngblood - Last Filed: 05/21/21 11:04> Code(s): I50.9 - Heart failure, unspecified <AUDRA Glez - Last Filed: 05/21/21 11:04> Status: Acute <Sandy IselaADURA Youngblood - Last Filed: 05/21/21 11:04> Assessment and Plan: BNP 1950, will monitor, IV Lasix 40 mg once in ER, will continue with 20 mg IV BID, monitor VS, serial troponin initial was 11.6 05/19/2021 BNP decreased to 1505, breathing well, serial trop 11.6, 9.4, 8.3 [id number] CTA does not indicate pulmonary edema Secondary to tight mitral valve Patient will need to follow-up with sewing machine operator floorperson <AUDRA Glez - Last Filed: 05/21/21 11:04> (2) Elevated d-dimer: Code(s): R79.89 - Other specified abnormal findings of blood chemistry <AUDRA Glez - Last Filed: 05/21/21 11:04> Status: Acute <AUDRA Glez - Last Filed: 05/21/21 11:04> Assessment and Plan: CTA report: IMPRESSION: 1. No pulmonary embolism or acute cardiopulmonary abnormality. 2. Chronic large loculated right pleural effusion. Prophylactic Lovenox <AUDRA Glez - Last Filed: 05/21/21 11:04> (3) Thrombocytopenia: Code(s): D69.6 - Thrombocytopenia, unspecified <AUDRA Glez - Last Filed: 05/21/21 11:04> Status: Acute <Sandy WeissFlorian AdryanNIKI-C - Last Filed: 05/21/21 11:04> Assessment and Plan: Currently 117, will monitor 05/19/2021 Plt 118 <Sandy CorneliusNIKI-C - Last Filed: 05/21/21 11:04> (4) COPD exacerbation: Code(s): J44.1 - Chronic obstructive pulmonary disease with (acute) exacerbation <AUDRA Glez - Last Filed: 05/21/21 11:04> Status: Acute <Sandy WeissNIKI Youngblood-C - Last Filed: 05/21/21 11:04> Assessment and Plan: Pt has Solu-Medrol scheduled and Albuterol Nebs Q4H PRN, supplemental oxygen at 3L/min with SpO2 93%, will call reservation sales agent Wednesday morning. 05/19/2021 Continue as noted above, no changes needed. Day of discharge within normal limits <AUDRA Glez - Last Filed: 05/21/21 11:04> (5) Restrictive airway disease: Code(s): J98.4 - Other disorders of lung <AUDRA Glez - Last Filed: 05/21/21 11:04> Status: Acute <MED GlezC - Last Filed: 05/21/21 11:04> Assessment and Plan: Secondary to right large pleural effusion Monitored by patient care physician <AUDRA Glez - Last Filed: 05/21/21 11:04> (6) Chronic cough: Code(s): R05.3 - Chronic cough <AUDRA Glez - Last Filed: 05/21/21 11:04> Status: Acute <AUDRA Glez - Last Filed: 05/21/21 11:04> Assessment and Plan: Discharged with guaifenesin with codeine <NIKI Glez-Travis - Last Filed: 05/21/21 11:04> DS: Summary Hospital Course Reason for hospitalization: Shortness of breath, congestive heart failure <AUDRA Gelz - Last Filed: 05/21/21 11:04> Hospital Course: Opal Okeefe is a 71 year old female who is being admitted under Observation for COPD and CHF Exacerbation. Pt states that about 3 years ago she started having difficulties with breathing which have been slowly and progressively getting worse. About 1 year ago she started being monitored for a Pleural Effusion on her Right Lung. CTA reading by Dr. Seamus Coulter reports NO PE and Chronic Large Loculated Right Pleural Effus
[2021-05-20 13:00] VITALS: PULSE 79; O2SAT 95
[2021-05-20 13:15] VITALS: PULSE 84; O2SAT 89
--- NOTE | 2021-05-20 13:34 | HOMEO2EVAL ---
Evaluation was performed at [facility] [place] Home Oxygen Evaluation RC: Home Oxygen (O2) Evaluation Start: 05/20/21 12:53 Freq: ONCE Status: Active Protocol: RPE Activity Type Activity Date Activity User E-Sign Co-Sign Detail Recorded Client Recorded Date Recorded By Document 05/20/21 13:00 SJB [id number] 05/20/21 13:33 SJB Document 05/20/21 13:15 SJB [id number] 05/20/21 13:33 SJB 05/20/21 05/20/21 13:00 13:15 Home O2 Evaluation Test Phase Resting Exercise Oxygen Delivery Room Air Room Air Pulse Oximetry (90-100 %) 95 89 L Pulse Rate (60-100 beats/min) 79 84 Activity Tolerance Good Rating of Perceived Dyspnea (PD) +2 Mild, Some Difficulty, Noticeable to the Observer Rate of Perceived Exertion (PE) 13 Somewhat Hard Ambulation Distance (feet) 350 Home Oxygen Evaluation Comments Pt walked on r/ a pushing wheelchair approx 350 ft. John well talking throughout. Sp02s ranged from 89-90 mid exercise and above with HRs between 80-84. PLB encouraged . Treatment Charges O2 Evaluation - Inpatient
[2021-05-20] MEDS: FUROSEMIDE INJ 40 MG/4 ML VIAL IV PUSH (15:04)
--- NOTE | 2021-05-20 15:30 | PC.NURSE ---
Discharge instructions reviewed with patient. All questions answered. Pt transferred via wheelchair to front of building for discharge.
--- NOTE | 2021-05-21 13:27 | PC.NURSE ---
Invalid phone number for discharge call back.
== END 2021-05-20 15:30 | disposition home or self-care (01) | DRG 292 ==
LOC: CHSED 13:42 → CHS2ND 19:50
PROVIDERS: Nurse Practitioner; Nurse Practitioner Family; Admitting Provider Emergency Medicine; Emergency Provider Emergency Medicine; PCP Internal Medicine; Visit Provider Emergency Medicine
DX: I50.9 Heart failure, unspecified (principal); J44.1 Chronic obstructive pulmonary disease with (acute) exacerbation; R78.81 Bacteremia; J98.4 Other disorders of lung; K21.9 Gastro-esophageal reflux disease without esophagitis; D69.6 Thrombocytopenia, unspecified; R79.89 Other specified abnormal findings of blood chemistry; Z87.891 Personal history of nicotine dependence; Z95.2 Presence of prosthetic heart valve
CPT/HCPCS: 36415; 36600; 71275; 80048; 80053; 82805; 83735; 83880; 84484; 85025; 85027; 85055; 85380; 87040; 87147; 87186; 87502; 93005; 94618; 94640; 96372; 96374; 96375; 96376; 99285; A9270; C9803; G0378; J1650; J1940; J2920; Q9967; U0003; U0005

== ENCOUNTER 2021-09-16 13:14 | Outpatient (CLI) | payer MEDICARE, OTHER, SELFPAY ==
--- NOTE | ~2021-09-16 | XR_ITS ---
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 Procedure: 2 view chest Comparison: Comparison to multiple prior studies sequentially, with oldest reviewed study dated 03/15. Findings: Status post median sternotomy. Heart size normal. There is a prosthetic heart valve. There is elevated right diaphragm with right pleural effusion. No acute osseous abnormality. Impression: 1: Elevated right diaphragm with moderate right pleural effusion. Reviewed, dictated and finalized at location B. Impression: 1: Elevated right diaphragm with moderate right pleural effusion.
--- NOTE | ~2021-09-16 | XR_ITS ---
XR thoracic spine 3V DATE: 09/16/2021 13:51 INDICATION: Neck pain, back pain, bilateral shoulder pain TECHNIQUE: AP, lateral and swimmer views COMPARISON: 03/18/2017 CT thorax FINDINGS: There is diffuse osteopenia. There is mild degenerative spurring of the thoracic spine. No fracture or dislocation or bone destruction is evident. No paraspinal soft tissue swelling is note d. Status post sternotomy and mitral valve replacement. Prominent aortic arch calcification. IMPRESSION: Osteopenia Mild degenerative spurring of the thoracic spine Status post mitral valve replacement Reviewed, dictated and finalized at location A.
[2021-09-19 15:25] LABS: TB Skin Test Erythema 0 mm; TB Skin Test Induration 0 mm (0-10); TB Skin Test Interpretation Negative (Negative); TB Skin Test Site Left Arm
== END 2021-09-16 13:15 | disposition home or self-care (01) ==
PROVIDERS: PCP Internal Medicine
DX: Z79.899 Other long term (current) drug therapy (principal)
CPT/HCPCS: 36415; 71046; 72072; 86580

== ENCOUNTER 2022-01-30 15:31 | Outpatient (CLI) | payer MEDICARE, OTHER, SELFPAY ==
[2022-01-30 16:28] LABS: Influenza A QL RT-PCR Negative (Negative); Influenza B QL RT-PCR Negative (Negative); SARS-CoV-2 RNA PCR Positive (Negative)
== END 2022-01-30 15:32 | disposition home or self-care (01) ==
LOC: CHSLAB 15:38
PROVIDERS: PCP Internal Medicine; Visit Provider Internal Medicine
DX: U07.1 COVID-19 (principal); R05.9 Cough, unspecified; J02.9 Acute pharyngitis, unspecified
CPT/HCPCS: 87502; C9803; U0003; U0005

== ENCOUNTER 2022-02-12 09:26 | Outpatient (CLI) | payer MEDICARE, OTHER, SELFPAY ==
--- NOTE | ~2022-02-12 | XR_ITS ---
XR chest 2V DATE: 02/12/2022 10:04 INDICATION: Cough, upper respiratory symptoms. TECHNIQUE: 2 view chest COMPARISON: 09/16/2021 2 view chest 05/18/2021 CTA chest FINDINGS: Chronic opacification of the right lower chest due to previously demonstrated large loculat ed pleural effusion and right basilar atelectasis, stable since 09/16/2021. Status post sternotomy and cardiac valve replacement. Normal heart size. Prominent aortic arch calcif ication. Abdominal aortic calcification. No hilar or mediastinal enlargement. No pulmonary infiltrate or consolidation, pleural effusion or pu lmonary vascular congestion or pneumothorax is detected. Osteopenia. Status post cholecystectomy IMPRESSION: Chronic loculated right pleural effusion and right basilar atelectasis Status post sterno carlo cardiac valve replacement No active cardiopulmonary disease Aortic atherosclerosis Osteopenia No significant change since 09/16/2021 Reviewed, dictated and finalized at location B. IMPRESSION: Chronic loculated right pleural effusion and right basilar atelecta sis Status post sternotomy cardiac valve replacement No active cardiopulmonary disease Aortic atherosclerosis Osteopenia No significant change since 09/16/2021
[2022-02-12 09:57] LABS: Hematocrit 34.9 % (35.0-42.0); Hemoglobin 11.4 g/dL (11.7-13.8); Mean Corpuscular HGB Conc 32.7 g/dL (32.0-36.0); Mean Corpuscular Hemoglobin 30.3 pg (27.0-31.0); Mean Corpuscular Volume 92.8 fL (78.0-102.0); Mean Platelet Volume 10.7 fl (9.2-11.8); Platelet Count Result 107 K/mm3 (150-420); Red Blood Count 3.76 M/mm3 (4.20-5.40); Red Cell Distribution Width 16.2 % (11.6-14.4); White Blood Count 2.7 K/mm3 (4.8-10.8)
[2022-02-12 10:08] LABS: Band Neutrophils Percent 0 % (0-6); Basophils Absolute Manual 0.02 K/mm3 (0-0.1); Basophils Percent Manual 1 % (0-1); Eosinophils Absolute Manual 0.02 K/mm3 (0.02-0.5); Eosinophils Percent Manual 1 % (1-6); Lymphocytes Absolute Manual 0.37 K/mm3 (1.1-4.5); Lymphocytes Percent Manual 14 % (18-44); Monocytes Absolute Manual 0.29 K/mm3 (0.1-0.90); Monocytes Percent Manual 11 % (3-9); Neutrophils Absolute Manual 1.97 K/mm3 (1.7-7.2); Neutrophils Percent Manual 73 % (46-73); Platelet Estimate Decreased (Adequate); Total Cells Counted 100
[2022-02-12 10:20] LABS: SARS-CoV-2 Ag Positive (Negative)
[2022-02-12 10:26] LABS: Alanine Aminotransferase 37 U/L (14-59); Albumin Level 3.4 g/dL (3.4-5.0); Alkaline Phosphatase 46 U/L (46-116); Anion Gap 6 mmol/L (8-16); Aspartate Amino Transferase 33 U/L (15-37); Bilirubin,Total 0.9 mg/dL (0.00-1.00); Blood Urea Nitrogen 14 mg/dL (7-18); Calcium 8.9 mg/dL (8.5-10.1); Carbon Dioxide 29 mmol/L (21-32); Chloride 103 mmol/L (98-108); Estimated Glomerular Filt Rate > 60; Glucose 107 mg/dL (70-99); Osmolality Calculated 286 mOsm/kg (285-295); Sodium 138 mmol/L (136-145); Total Protein 6.2 g/dL (6.4-8.2)
== END 2022-02-12 09:27 | disposition home or self-care (01) ==
PROVIDERS: PCP Internal Medicine; Visit Provider Internal Medicine
DX: U07.1 COVID-19 (principal); J06.9 Acute upper respiratory infection, unspecified; R50.9 Fever, unspecified
CPT/HCPCS: 36415; 71046; 80053; 85025; 87426; C9803

== ENCOUNTER 2022-02-25 12:51 | Outpatient (CLI) | payer MEDICARE, SELFPAY ==
[2022-02-25 13:15] LABS: Hematocrit 33.1 % (35.0-42.0); Hemoglobin 10.7 g/dL (11.7-13.8); Immature Platelet Fraction Pct 3.9 % (1.0-7.0); Mean Corpuscular HGB Conc 32.3 g/dL (32.0-36.0); Mean Corpuscular Hemoglobin 30.2 pg (27.0-31.0); Mean Corpuscular Volume 93.5 fL (78.0-102.0); Mean Platelet Volume 10.9 fl (9.2-11.8); Platelet Count Result 92 K/mm3 (150-420); Red Blood Count 3.54 M/mm3 (4.20-5.40); Red Cell Distribution Width 16.9 % (11.6-14.4); White Blood Count 1.9 K/mm3 (4.8-10.8)
[2022-02-25 13:29] LABS: Band Neutrophils Percent 0 % (0-6); Eosinophils Absolute Manual 0.01 K/mm3 (0.02-0.5); Eosinophils Percent Manual 1 % (1-6); Lymphocytes Absolute Manual 0.58 K/mm3 (1.1-4.5); Lymphocytes Percent Manual 31 % (18-44); Monocytes Absolute Manual 0.09 K/mm3 (0.1-0.90); Monocytes Percent Manual 5 % (3-9); Neutrophils Absolute Manual 1.19 K/mm3 (1.7-7.2); Neutrophils Percent Manual 63 % (46-73); Platelet Estimate Decreased (Adequate); Total Cells Counted 100
[2022-02-25 13:41] LABS: Alanine Aminotransferase 18 U/L (14-59); Albumin Level 3.2 g/dL (3.4-5.0); Alkaline Phosphatase 51 U/L (46-116); Amylase 25 U/L (25-115); Anion Gap 6 mmol/L (8-16); Aspartate Amino Transferase 24 U/L (15-37); Bilirubin,Total 0.6 mg/dL (0.00-1.00); Blood Urea Nitrogen 13 mg/dL (7-18); CRP 0.9 mg/dL (0.0-0.9); Calcium 8.5 mg/dL (8.5-10.1); Carbon Dioxide 26 mmol/L (21-32); Chloride 103 mmol/L (98-108); Estimated Glomerular Filt Rate > 60; Glucose 132 mg/dL (70-99); Lipase 177 U/L (73-393); Osmolality Calculated 282 mOsm/kg (285-295); Potassium 3.9 mmol/L (3.5-5.1); Sodium 135 mmol/L (136-145)
== END 2022-02-25 12:52 | disposition home or self-care (01) ==
LOC: CHSLAB 12:54
PROVIDERS: PCP Internal Medicine; Visit Provider Internal Medicine
DX: R11.2 Nausea with vomiting, unspecified (principal); M06.9 Rheumatoid arthritis, unspecified
CPT/HCPCS: 36415; 80053; 82150; 83690; 85025; 85055; 86140

== ENCOUNTER 2022-02-27 11:57 | Outpatient (CLI) | payer MEDICARE, SELFPAY ==
[2022-02-27 12:21] LABS: Hematocrit 34.9 % (35.0-42.0); Hemoglobin 11.5 g/dL (11.7-13.8); Immature Platelet Fraction Pct 4.9 % (1.0-7.0); Mean Corpuscular Hemoglobin 30.5 pg (27.0-31.0); Mean Corpuscular Volume 92.6 fL (78.0-102.0); Mean Platelet Volume 11.2 fl (9.2-11.8); Platelet Count Result 112 K/mm3 (150-420); Red Blood Count 3.77 M/mm3 (4.20-5.40); Red Cell Distribution Width 16.4 % (11.6-14.4); White Blood Count 2.8 K/mm3 (4.8-10.8)
[2022-02-27 13:41] LABS: Band Neutrophils Percent 0 % (0-6); Basophils Absolute Manual 0.05 K/mm3 (0-0.1); Basophils Percent Manual 2 % (0-1); Eosinophils Absolute Manual 0.02 K/mm3 (0.02-0.5); Eosinophils Percent Manual 1 % (1-6); Lymphocytes Absolute Manual 0.64 K/mm3 (1.1-4.5); Lymphocytes Percent Manual 23 % (18-44); Monocytes Absolute Manual 0.25 K/mm3 (0.1-0.90); Monocytes Percent Manual 9 % (3-9); Neutrophils Absolute Manual 1.82 K/mm3 (1.7-7.2); Neutrophils Percent Manual 65 % (46-73); Total Cells Counted 100
[2022-02-27 13:42] LABS: Platelet Estimate Adequate (Adequate)
[2022-03-04 20:19] LABS: Immunoglobulin A 116 mg/dL (70-320); Immunoglobulin G 531 mg/dL (600-1540); Immunoglobulin M 263 mg/dL (50-300)
== END 2022-02-27 11:58 | disposition home or self-care (01) ==
LOC: CHSLAB 12:01
PROVIDERS: PCP Internal Medicine; Visit Provider Internal Medicine
DX: U09.9 Post COVID-19 condition, unspecified (principal); D61.818 Other pancytopenia
CPT/HCPCS: 36415; 82784; 85025; 85055; 86413

== ENCOUNTER 2022-03-02 15:42 | Outpatient (CLI) | payer MEDICARE, SELFPAY ==
[2022-03-02 16:52] LABS: Hematocrit 34.4 % (35.0-42.0); Hemoglobin 10.9 g/dL (11.7-13.8); Immature Platelet Fraction Pct 4.6 % (1.0-7.0); Mean Corpuscular HGB Conc 31.7 g/dL (32.0-36.0); Mean Corpuscular Hemoglobin 30.2 pg (27.0-31.0); Mean Corpuscular Volume 95.3 fL (78.0-102.0); Mean Platelet Volume 11.5 fl (9.2-11.8); Platelet Count Result 88 K/mm3 (150-420); Red Blood Count 3.61 M/mm3 (4.20-5.40); Red Cell Distribution Width 16.9 % (11.6-14.4); White Blood Count 3.6 K/mm3 (4.8-10.8)
[2022-03-02 17:28] LABS: SARS-CoV-2 RNA PCR Positive (Negative)
[2022-03-02 18:00] LABS: Band Neutrophils Percent 0 % (0-6); Basophils Absolute Manual 0.03 K/mm3 (0-0.1); Basophils Percent Manual 1 % (0-1); Eosinophils Percent Manual 3 % (1-6); Lymphocytes Absolute Manual 0.57 K/mm3 (1.1-4.5); Lymphocytes Percent Manual 16 % (18-44); Monocytes Absolute Manual 0.14 K/mm3 (0.1-0.90); Monocytes Percent Manual 4 % (3-9); Neutrophils Absolute Manual 2.73 K/mm3 (1.7-7.2); Neutrophils Percent Manual 76 % (46-73)
[2022-03-02 18:01] LABS: Platelet Estimate Decreased (Adequate)
== END 2022-03-02 15:43 | disposition home or self-care (01) ==
PROVIDERS: PCP Internal Medicine; Visit Provider Internal Medicine
DX: U07.1 COVID-19 (principal); D61.818 Other pancytopenia
CPT/HCPCS: 36415; 85025; 85055; C9803; U0003; U0005

== ENCOUNTER 2022-03-05 13:42 | Outpatient (CLI) | payer MEDICARE, SELFPAY ==
[2022-03-05 13:56] LABS: Basophils Absolute Auto 0.02 K/mm3 (0.00-0.10); Basophils Percent Auto 0.5 % (0.0-1.0); Eosinophils Absolute Auto 0.13 K/mm3 (0.02-0.50); Eosinophils Percent Auto 3.3 % (1.0-6.0); Hematocrit 34.6 % (35.0-42.0); Hemoglobin 10.8 g/dL (11.7-13.8); Immature Granulocyte Absolute 0.02 K/mm3 (0.00-0.00); Immature Granulocyte Percent A 0.5 % (0.0-0.0); Lymphocytes Percent Auto 22.7 % (18.0-42.0); Mean Corpuscular HGB Conc 31.2 g/dL (32.0-36.0); Mean Corpuscular Hemoglobin 30.3 pg (27.0-31.0); Mean Corpuscular Volume 96.9 fL (78.0-102.0); Mean Platelet Volume 11.2 fl (9.2-11.8); Monocytes Absolute Auto 0.44 K/mm3 (0.10-0.90); Monocytes Percent Auto 11.1 % (2.0-11.0); Neutrophils Absolute Auto 2.5 K/mm3 (1.7-7.2); Neutrophils Percent Auto 61.9 % (50.0-70.0); Platelet Count Result 108 K/mm3 (150-420); Red Blood Count 3.57 M/mm3 (4.20-5.40); Red Cell Distribution Width 16.6 % (11.6-14.4)
== END 2022-03-05 13:43 | disposition home or self-care (01) ==
PROVIDERS: PCP Internal Medicine; Visit Provider Internal Medicine
DX: D61.811 Other drug-induced pancytopenia (principal)
CPT/HCPCS: 36415; 85025

== ENCOUNTER 2022-03-10 17:00 | Outpatient (CLI) | payer MEDICARE, SELFPAY ==
[2022-03-11 14:34] LABS: SARS-CoV-2 Ag Negative (Negative)
== END 2022-03-10 17:01 | disposition home or self-care (01) ==
LOC: CHSLAB 17:02
PROVIDERS: PCP Internal Medicine; Visit Provider Internal Medicine
DX: U07.1 COVID-19 (principal)
CPT/HCPCS: 87426; C9803; U0003; U0005

== ENCOUNTER 2022-09-15 20:00 | Emergency (ER) | payer MEDICARE, OTHER, SELFPAY ==
--- NOTE | ~2022-09-15 | XR_ITS ---
EXAM: XR hip RT min 2V DATE: 09/15/2022 21:20 HISTORY: ACUTE RIGHT HIP/GROIN PAIN SINCE LAST NIGHT. NKI. . COMPARISON: 09/19/2020. FINDINGS: Surgical clips over the right pelvis Decreased mineralization. No fracture or dislocation. No lytic or blastic lesion. Mild degenerative change in the right hip. No erosion or periosteal rodas ge. Soft tissues within normal limits. IMPRESSION: No acute osseous finding in the right hip. Reviewed, dictated and finalized at location K.
[2022-09-15 20:05] VITALS: BP 136/80; PULSE 90; RESP 20; TEMP 37; O2SAT 100
--- NOTE | 2022-09-15 20:06 | ED.EXTPRO ---
HPI - Extremity Problem General Chief complaint: Unspecified Stated complaint: leg pain Time Seen by Provider: 09/15/22 20:02 Source: patient and RN notes reviewed Mode of arrival: wheelchair Limitations: no limitations History of Present Illness HPI Narrative: Sudden onset of right hip pain without any trauma. This started last evening patient can not get comfortable. She has a history of rheumatoid arthritis and just recently finished a course of steroids for arthritis in her hand. MD Complaint: extremity pain Onset (ago): day(s) (1) Pain Consistency: constant Location: right and lower extremity (hip) Radiation: none Relieving factors: nothing Exacerbating factors: range of motion and weight bearing Associated symptoms: denies other symptoms Related Data Home Medications Medication Instructions Recorded Confirmed duloxetine 60 mg capsule,delayed 60 mg PO DAILY 09/19/20 05/18/21 release folic acid 1 mg tablet 1 mg PO DAILY 09/19/20 05/18/21 methotrexate sodium 2.5 mg tablet 5 mg PO WEEKLY 09/19/20 05/18/21 pantoprazole 40 mg tablet,delayed 40 mg PO DAILY 09/19/20 05/18/21 release prednisone 5 mg tablet 5 mg PO DAILY 05/18/21 05/18/21 Allergies Allergy/AdvReac Type Severity Reaction Status Date / Time nizatidine Allergy Severe Verified 08/04/16 18:21 Review of Systems Review of Systems: All systems reviewed & are unremarkable except as noted in HPI and below PMFSH Past Medical History Medical History (Updated 09/15/22 @ 22:19 by Lul Casas MD) Acute renal failure Calculus of gallbladder with chronic cholecystitis without obstruction Congestive heart failure COPD exacerbation Depression Encounter for surgical aftercare following surgery of digestive system GERD (gastroesophageal reflux disease) Incisional hernia without obstruction or gangrene Rheumatoid arthritis Surgical History Surgical History Mitral valve replaced Family History Family History Other Diabetes mellitus Malignant neoplasm of prostate Social History Social History Smoking packs per day: 1 Smoking cigarettes per day: 20.0 Years smoked: 20 Smoking pack-years: 20.00 Smoking status: Former smoker Tobacco type: cigarettes Smoking end date: 07/05/90 Alcohol intake: never Drinks per week: 2 Substance use: never Gender identity (if verbalized by the patient): Female Sexual Orientation (if Verbalized by the Patient): Straight or Heterosexual Spiritual care concerns: No Exam Const: General: healthy appearing, no acute distress and alert Nutritional Appearance: well nourished Orientation/consciousness: patient oriented x3 Limitations: no limitations HENMT: Head: normal to inspection Ears: external ears normal Face/Nose/Sinus: Normal external nose present Face and sinus: normal facial exam Mouth: Yes moist mucous membranes Eyes: Conjunctivae: conjunctivae normal Pupils: Equal, round and reactive pupils present EOM: EOMs intact bilaterally Neck: Neck: normal visual inspection Resp: Effort & Inspection: normal respiratory effort Auscultation: clear to auscultation bilaterally Cardio: Rate: regular rate Rhythm: regular rhythm Heart sounds: Murmur heart sound present systolic late, crescendo and III/ GI: GI Palp: Yes Soft to palpation and No Tenderness to palpation present (GI) Auscultation: normal bowel sounds Back/Spine/Pelvis: Cervical Spine: cervical ROM normal Thoracic/Lumbar Spine: thoraco-lumbar ROM normal Skin: General skin exam: normal color Rashes: no rashes Neuro: General: patient oriented x3, moves all extremities, no focal motor deficits and CN's II-XI intact bilaterally Speech: normal speech Extrem: General: no clubbing, cyanosis or edema Left lower extremity: hip/thigh Details: tenderness Location: of
[2022-09-15] MEDS: KETOROLAC 30 MG/ML VIAL (*BKC) IM (20:54)
[2022-09-15 21:20] VITALS: BP 138/90; PULSE 80; RESP 18; O2SAT 98
[2022-09-15 22:25] VITALS: BP 132/78; PULSE 80; RESP 20; TEMP 36.6; O2SAT 97
== END 2022-09-15 22:36 | disposition home or self-care (01) ==
PROVIDERS: Emergency Provider Emergency Medicine; PCP Internal Medicine
DX: M16.11 Unilateral primary osteoarthritis, right hip (principal); I50.9 Heart failure, unspecified; J44.9 Chronic obstructive pulmonary disease, unspecified; Z87.891 Personal history of nicotine dependence
CPT/HCPCS: 73502; 96372; 99283; J1885

== ENCOUNTER 2022-10-21 16:23 | Outpatient (CLI) | payer MEDICARE, OTHER, SELFPAY ==
--- NOTE | ~2022-10-21 | XR_ITS ---
XR thoracic spine 3V 10/21/2022 17:18 Indication: Back pain. Procedure: 3 views thoracic spine Comparison: 09/16/2021 Findings: There is accentuated thoracic kyphosis. There is mild multilevel degenerative disc disease. Osteopenia. Pedicles intact. There is a prosthetic heart valve. No acute fracture or traumatic malal ignment. Impression: 1: Mild thoracic spondylosis. Reviewed, dictated and finalized at location A. Impression: 1: Mild thoracic spondylosis.
[2022-10-21 16:51] LABS: Basophils Absolute Auto 0.05 K/mm3 (0.00-0.10); Basophils Percent Auto 0.8 % (0.0-1.0); Eosinophils Absolute Auto 0.25 K/mm3 (0.02-0.50); Eosinophils Percent Auto 3.9 % (1.0-6.0); Hematocrit 38.5 % (35.0-42.0); Hemoglobin 12.1 g/dL (11.7-13.8); Immature Granulocyte Absolute 0.03 K/mm3 (0.00-0.00); Immature Granulocyte Percent A 0.5 % (0.0-0.0); Lymphocytes Absolute Auto 1.08 K/mm3 (1.10-4.50); Lymphocytes Percent Auto 16.8 % (18.0-42.0); Mean Corpuscular HGB Conc 31.4 g/dL (32.0-36.0); Mean Corpuscular Hemoglobin 28.7 pg (27.0-31.0); Mean Corpuscular Volume 91.4 fL (78.0-102.0); Mean Platelet Volume 10.3 fl (9.2-11.8); Monocytes Absolute Auto 0.32 K/mm3 (0.10-0.90); Neutrophils Absolute Auto 4.7 K/mm3 (1.7-7.2); Platelet Count Result 171 K/mm3 (150-420); Red Blood Count 4.21 M/mm3 (4.20-5.40); Red Cell Distribution Width 15.7 % (11.6-14.4); White Blood Count 6.4 K/mm3 (4.8-10.8)
[2022-10-21 17:28] LABS: Alanine Aminotransferase 23 U/L (14-59); Alkaline Phosphatase 56 U/L (46-116); Anion Gap 8 mmol/L (8-16); Aspartate Amino Transferase 28 U/L (15-37); Bilirubin,Total 0.9 mg/dL (0.00-1.00); Blood Urea Nitrogen 21 mg/dL (7-18); Calcium 9.6 mg/dL (8.5-10.1); Carbon Dioxide 32 mmol/L (21-32); Chloride 100 mmol/L (98-108); Estimated Glomerular Filt Rate 57; Glucose 109 mg/dL (70-99); NT Pro B Type Natriuretic Pept 884 pg/mL (0-125); Osmolality Calculated 294 mOsm/kg (285-295); Potassium 4.1 mmol/L (3.5-5.1); Sodium 140 mmol/L (136-145); Total Protein 7.2 g/dL (6.4-8.2)
[2022-10-21 17:30] LABS: CRP < 0.5 mg/dL (0.0-0.9)
[2022-10-21 20:36] LABS: Appearance Urine Clear (Clear); Bilirubin Urine Negative (Negative); Blood Urine Negative (Negative); Color Urine Yellow (Yellow); Glucose Urine UA Negative (Negative); Ketones Urine Negative (Negative); Leukocyte Esterase Ur Trace (Negative); Nitrate Urine Negative (Negative); Protein Urine Negative (Negative); Specific Grav Ur 1.025 (1.010-1.020)
[2022-10-21 22:46] LABS: Add Urine Microscopic? YES; RBC Urine 0-2 /hpf (0-2); WBC Urine 0-3 /hpf (0-3)
[2022-10-21 22:47] LABS: Bacteria Urine Trace /hpf; Squamous Epithelial Cell Urine Rare /hpf (Few)
== END 2022-10-21 16:24 | disposition home or self-care (01) ==
LOC: CHSLAB 16:28
PROVIDERS: PCP Internal Medicine; Visit Provider Internal Medicine
DX: R06.00 Dyspnea, unspecified (principal); M54.6 Pain in thoracic spine; M06.9 Rheumatoid arthritis, unspecified; M43.04 Spondylolysis, thoracic region
CPT/HCPCS: 36415; 72072; 80053; 81001; 83880; 85025; 86140

== ENCOUNTER 2022-10-22 12:06 | Outpatient (CLI) | payer MEDICARE, OTHER, SELFPAY ==
--- NOTE | ~2022-10-22 | XR_ITS ---
XR chest 2V DATE: 10/22/2022 12:28 INDICATION: Dyspnea. Right posterior chest pain. TECHNIQUE: 2 views COMPARISON: 02/12/2022 2 view chest 09/16/2021 2 view chest 05/18/2021 CTA chest FINDINGS: Again noted is a large loculated right pleural effusion and associated atelectasis, not sig nificantly changed since 09/26/2020 Status post sternotomy and mitral valve replacement. Heart size appears within normal range. Is aorti c arch and abdominal aortic calcification There is pulmonary vascular redistribution which may indicate pulmonary venous hypertension since 02/02. No pleural effusion is evident. No pneumothorax. Diffuse osteopenia. IMPRESSION: Chronic large loculated right pleural effusion and right lower lung atelectasis, present since 09/26/2020 right status post sternotomy and mitral valve replacement Pulmonary vascular redistribution which may indicate mild pulmonary venous hypertension since 02/13/20 22 Aortic atherosclerosis Osteopenia Reviewed, dictated and finalized at location L. IMPRESSION: Chronic large loculated right pleural effusion and right lower lung atelectasis, present since 09/26/2020 right status post sternotomy and mitral v alve replacement Pulmonary vascular redistribution which may indicate mild pulmonary venous hype rtension since 02/12/2022 Aortic atherosclerosis Osteopenia
== END 2022-10-22 12:07 | disposition home or self-care (01) ==
LOC: CHSIMG 12:08
PROVIDERS: PCP Internal Medicine; Visit Provider Internal Medicine
DX: R06.00 Dyspnea, unspecified (principal); M54.6 Pain in thoracic spine; M06.9 Rheumatoid arthritis, unspecified; J90 Pleural effusion, not elsewhere classified; Z98.890 Other specified postprocedural states; I70.0 Atherosclerosis of aorta; M85.88 Other specified disorders of bone density and structure, other site
CPT/HCPCS: 71046

== ENCOUNTER 2022-11-09 12:29 | Emergency (ER) | payer MEDICARE, OTHER, SELFPAY ==
--- NOTE | ~2022-11-09 | CT_ITS ---
EXAMINATION: CT chest abdomen pelvis w con DATE: 11/09/2022 13:48 INDICATION: Right flank pain. Right upper quadrant abdominal pain. TECHNIQUE: Computed tomography (CT) of the chest, abdomen, and pelvis was performed with 100 mL Omnip aque 350 intravenous contrast. Automated exposure control and iterative reconstruction technique were employed. The dose-length product was 992.97 mGy-cm. COMPARISON: Chest CT 05/18/2021 FINDINGS: CHEST CT: There is mild emphysema. There is mild atelectasis bilaterally. There is mild peripheral scarring in left upper lobe. There are nodules in the lungs measuring up to 3 mm, likely benign. There is a moder ate-sized loculated right pleural effusion. Cardiomegaly is noted. There are changes of mitral valve replacement. There are coronary artery calcifications. There is mild mediastinal lymphadenopathy, lik robbie reactive. There is mild chronic anterior wedging of multiple thoracic vertebral bodies. There is moderate thoracic spondylosis. ABDOMEN/PELVIS CT: There is periportal edema in the liver. There is mild splenomegaly. There are changes of cholecystect cedric. The pancreas and adrenal glands are normal. There is cortical thinning of the kidneys. There is an umbilical hernia containing fat. There is an infraumbilical ventral hernia containing nonobstructe d transverse colon. There is wall thickening of the transverse colon as it leaves the hernia with shaquille rounding fat stranding. There is diverticulosis of the colon without evidence of diverticulitis. Ther e is a large volume of stool in the colon. There are changes of appendectomy. There are no dilated lo ops of bowel. There are no pathologically enlarged lymph nodes. There is no free intraperitoneal flui d. There is a total left hip arthroplasty. There is severe lower lumbar spondylosis. IMPRESSION: 1. Chronic moderate-sized loculated right pleural effusion. Consider thoracentesis. 2. Infraumbilical ventral hernia containing nonobstructed transverse colon with inflammation of the c olon as it leaves the hernia. 3. Umbilical hernia containing fat. Reviewed, dictated and finalized at location A. IMPRESSION: 1. Chronic moderate-sized loculated right pleural effusion. Consider thoracente sis. 2. Infraumbilical ventral hernia containing nonobstructed transverse colon with inflammation of the colon as it leaves the hernia. 3. Umbilical hernia containing fat.
--- NOTE | 2022-11-09 12:47 | ED.ABDPAIN ---
HPI - Abdominal Pain General Chief Complaint: Back Pain/Injury Stated Complaint: right back pain Time Seen by Provider: 11/09/22 12:39 Source: patient Mode of arrival: ambulatory Limitations: no limitations History of Present Illness HPI narrative: 72 year old female presents to the Emergency Department complaining of pain to right upper flank. Onset 2 weeks ago. Saw PCP and had tests, but does not know results. Now pain to RUQ. Denies nausea, vomitng, diarrhea, constipation, urinary tract symptoms. States pain has been constant. Denies any exacerbating or alleviating factors. States has had gallbladder removed. No history of kidney stones. Denies cough or chest congestion. Denies chest pain. MD elicited complaint: abdominal pain Pertinent past history: none Onset (ago): week(s) (2) Pain Consistency: constant Location: RUQ and other (right upper flank) Severity: moderate Quality: aching Radiation: R flank Exacerbating factors: nothing Relieving factors: nothing Context: denies foreign travel, denies possible food poisoning, denies sick contacts, denies recent surgery/procedure, denies recent injury or denies history of similar episodes Associated symptoms: denies other symptoms Related Data Patient : No Home Medications Medication Instructions Recorded Confirmed duloxetine 60 mg capsule,delayed 60 mg PO DAILY 09/19/20 05/18/21 release folic acid 1 mg tablet 1 mg PO DAILY 09/19/20 05/18/21 methotrexate sodium 2.5 mg tablet 5 mg PO WEEKLY 09/19/20 05/18/21 pantoprazole 40 mg tablet,delayed 40 mg PO DAILY 09/19/20 05/18/21 release prednisone 5 mg tablet 5 mg PO DAILY 05/18/21 05/18/21 Allergies Allergy/AdvReac Type Severity Reaction Status Date / Time nizatidine Allergy Severe Verified 08/04/16 18:21 Review of Systems Review of Systems: All systems reviewed & are unremarkable except as noted in HPI and below Constitutional: Constitutional: Reports as per HPI, Denies chills and Denies fever(s) Eyes: Eyes: Reports as per HPI ENT: Reports system reviewed and no additional complaints, except as documented Cardiovascular: Cardiovascular: Reports as per HPI and Denies chest pain Respiratory: Respiratory: Reports as per HPI, Denies chest congestion, Denies cough and Denies dyspnea Gastrointestinal: Gastrointestinal: Reports as per HPI, Reports abdominal pain, Denies constipation, Denies diarrhea, Denies nausea and Denies vomiting Genitourinary: Genitourinary: Reports no additional female genitourinary complaints, Denies nocturia, Denies dysuria and Reports flank pain Musculoskeletal: Musculoskeletal: Reports no additional musculoskeletal complaints Integumentary/Breasts: Skin/Breast: Reports system reviewed and no additional complaints, except as docu Neurologic: Reports system reviewed and no additional complaints, except as documented [facility] Past Medical History Medical History Acute renal failure Calculus of gallbladder with chronic cholecystitis without obstruction Congestive heart failure COPD exacerbation Depression Encounter for surgical aftercare following surgery of digestive system GERD (gastroesophageal reflux disease) Incisional hernia without obstruction or gangrene Rheumatoid arthritis Surgical History Surgical History Mitral valve replaced Family History Family History Other Diabetes mellitus Malignant neoplasm of prostate Social History Social History Smoking packs per day: 1 Smoking cigarettes per day: 20.0 Years smoked: 20 Smoking pack-years: 20.00 Smoking status: Former smoker Tobacco type: cigarettes Smoking end date: 07/05/90 Alcohol intake: never Drinks per week: 2 Substance use: never Gender identity (if verbalized by the
[2022-11-09 12:59] VITALS: BP 144/56; PULSE 72; RESP 20; TEMP 36.3; O2SAT 98
[2022-11-09] MEDS: ONDANSETRON INJ 4 MG/2 ML VIAL IV PUSH (13:01)
[2022-11-09] MEDS: HYDROmorphone HCL INJ (*CRX) 2 MG/ML VIAL 1 MG IV PUSH (13:01)
[2022-11-09 13:04] LABS: Basophils Absolute Auto 0.03 K/mm3 (0.00-0.10); Basophils Percent Auto 0.6 % (0.0-1.0); Eosinophils Absolute Auto 0.25 K/mm3 (0.02-0.50); Eosinophils Percent Auto 5.4 % (1.0-6.0); Hematocrit 33.4 % (35.0-42.0); Hemoglobin 10.5 g/dL (11.7-13.8); Immature Granulocyte Absolute 0.01 K/mm3 (0.00-0.00); Immature Granulocyte Percent A 0.2 % (0.0-0.0); Lymphocytes Absolute Auto 0.76 K/mm3 (1.10-4.50); Lymphocytes Percent Auto 16.3 % (18.0-42.0); Mean Corpuscular HGB Conc 31.4 g/dL (32.0-36.0); Mean Corpuscular Hemoglobin 29.7 pg (27.0-31.0); Mean Corpuscular Volume 94.4 fL (78.0-102.0); Mean Platelet Volume 10.4 fl (9.2-11.8); Monocytes Absolute Auto 0.39 K/mm3 (0.10-0.90); Monocytes Percent Auto 8.4 % (2.0-11.0); Neutrophils Absolute Auto 3.2 K/mm3 (1.7-7.2); Neutrophils Percent Auto 69.1 % (50.0-70.0); Platelet Count Result 137 K/mm3 (150-420); Red Blood Count 3.54 M/mm3 (4.20-5.40); Red Cell Distribution Width 16.3 % (11.6-14.4); White Blood Count 4.7 K/mm3 (4.8-10.8)
[2022-11-09 13:15] VITALS: RESP 20; O2SAT 98
[2022-11-09 13:19] LABS: Alanine Aminotransferase 10 U/L (14-59); Albumin Level 3.4 g/dL (3.4-5.0); Alkaline Phosphatase 38 U/L (46-116); Amylase 21 U/L (25-115); Anion Gap 6 mmol/L (8-16); Aspartate Amino Transferase 16 U/L (15-37); Bilirubin,Total 0.6 mg/dL (0.00-1.00); Blood Urea Nitrogen 17 mg/dL (7-18); Calcium 8.7 mg/dL (8.5-10.1); Carbon Dioxide 31 mmol/L (21-32); Chloride 104 mmol/L (98-108); Estimated CRCL calculation 60 ml/min; Estimated Glomerular Filt Rate > 60; Glucose 93 mg/dL (70-99); Lipase 63 U/L (16-77); Osmolality Calculated 293 mOsm/kg (285-295); Potassium 3.9 mmol/L (3.5-5.1); Sodium 141 mmol/L (136-145); Total Protein 6.5 g/dL (6.4-8.2)
[2022-11-09 13:24] LABS: Lactic Acid Reflex 0.9 mmol/L (0.4-2.0)
--- NOTE | 2022-11-09 13:30 | PC.NURSE ---
[address]
[2022-11-09 14:06] LABS: Appearance Urine Clear (Clear); Bilirubin Urine Negative (Negative); Blood Urine Negative (Negative); Color Urine Light Yellow (Yellow); Glucose Urine UA Negative (Negative); Ketones Urine Negative (Negative); Leukocyte Esterase Ur Trace (Negative); Nitrate Urine Negative (Negative); Protein Urine Negative (Negative); Specific Grav Ur <= 1.005 (1.010-1.020)
[2022-11-09 14:09] LABS: Add Urine Microscopic? YES
[2022-11-09 14:10] LABS: Bacteria Urine Trace /hpf; RBC Urine None seen /hpf (0-2); Squamous Epithelial Cell Urine Rare /hpf (Few); WBC Urine None seen /hpf (0-3)
[2022-11-09 15:22] VITALS: BP 119/55; PULSE 64; RESP 20; TEMP 36.9; O2SAT 90
== END 2022-11-09 15:24 | disposition home or self-care (01) ==
PROVIDERS: Emergency Provider Emergency Medicine; PCP Internal Medicine
DX: J90 Pleural effusion, not elsewhere classified (principal); R07.81 Pleurodynia; R10.11 Right upper quadrant pain; K59.00 Constipation, unspecified; M54.6 Pain in thoracic spine; I50.9 Heart failure, unspecified; Z87.891 Personal history of nicotine dependence
CPT/HCPCS: 36415; 71260; 74177; 80053; 81001; 82150; 83605; 83690; 85025; 96374; 96375; 99284; J1170; J2405; Q9967

== ENCOUNTER 2022-11-12 15:01 | Outpatient (CLI) | payer MEDICARE, SELFPAY ==
[2022-11-12 15:48] LABS: Alanine Aminotransferase 15 U/L (14-59); Albumin Level 3.7 g/dL (3.4-5.0); Alkaline Phosphatase 44 U/L (46-116); Anion Gap 10 mmol/L (8-16); Aspartate Amino Transferase 16 U/L (15-37); Blood Urea Nitrogen 16 mg/dL (7-18); Calcium 9.1 mg/dL (8.5-10.1); Carbon Dioxide 30 mmol/L (21-32); Chloride 101 mmol/L (98-108); Estimated Glomerular Filt Rate > 60; Glucose 135 mg/dL (70-99); NT Pro B Type Natriuretic Pept 1769 pg/mL (0-125); Osmolality Calculated 295 mOsm/kg (285-295); Potassium 3.8 mmol/L (3.5-5.1); Sodium 141 mmol/L (136-145); Total Protein 6.4 g/dL (6.4-8.2)
== END 2022-11-12 15:02 | disposition home or self-care (01) ==
PROVIDERS: PCP Internal Medicine; Visit Provider Internal Medicine
DX: I50.22 Chronic systolic (congestive) heart failure (principal)
CPT/HCPCS: 36415; 80053; 83880

== ENCOUNTER 2022-11-24 11:56 | Outpatient (CLI) | payer MEDICARE, OTHER, SELFPAY ==
[2022-11-24 12:26] LABS: Base Excess ABG 2.1 mmol/L (0-2); Device ROOM AIR; HCO3 ABG 25.9 mmol/L (23-29); Modified Allen's Test Pass; Oxygen Saturation ABG 95.2 % (95-97); Oxyhemoglobin 94.2 % (94-100); PCO2 ABG 37.9 mmHg (35-45); PO2 ABG 76.5 mmHg (75-85); Site Drawn LEFT RADIAL; Total Hemoglobin 12.8 g/dL (12.0-18.0); pH ABG 7.45 (7.35-7.45)
[2022-11-24 12:30] VITALS: PULSE 75; O2SAT 93
[2022-11-24 12:36] VITALS: PULSE 83; O2SAT 92
--- NOTE | 2022-11-24 12:42 | HOMEO2EVAL ---
Evaluation was performed at [facility] [place] [facility] Oxygen Evaluation [facility]: Home Oxygen (O2) Evaluation Start: 11/24/22 12:38 Freq: Status: Active Protocol: RPE Activity Type Activity Date Activity User E-sign Co-sign Detail Recorded Client Recorded Date Recorded By Document 11/24/22 12:30 LINA [email or web address] 11/24/22 12:41 SJB Document 11/24/22 12:36 SJB [email or web address] 11/24/22 12:41 SJB 11/24/22 11/24/22 12:30 12:36 Home O2 Evaluation [Oxygen] -Test Phase Resting Exercise -Oxygen Delivery Room Air Room Air [Pulse Oximetry] -Pulse Oximetry (90-100 %) 93 92 [Pulse Rate] -Pulse Rate (60-100 beats/min) 75 83 [Evaluation] -Activity Tolerance Excellent -Rating of Perceived Dyspnea (PD) +1 Mild, Noticeable to the Participant but Not to an Observer -Rate of Perceived Exertion (PE) 11 Fairly light Query Text:Click the Protocol Button to View the RPE Scale [Exercise] -Ambulation Distance (feet) 865 -Ambulation Distance (meters) 263.63 [Comments] -Home Oxygen Evaluation Comments Will begin walk Pt walked on r/a. approx 865 ft on r/a. John. very well. No problems or complaints. Sp02 remained at 92% and above. HR up to 83. [Charges] -Treatment Charges O2 Evaluation - Outpatient
--- NOTE | 2022-12-04 15:45 | P.PCNPFT_ITS ---
PFT Procedure Performed PFT Procedure Performed Spirometry with Pre/Post Bronchodilator Plethysmography (Lung Vol) Diffusing Cap (DLCO) Flow Vol Loop PFT Interpretation DOS: 11/24/2022 REQUESTING: Honey Lewis MD REASON FOR TESTING: Abnormal breathing PULMONARY FUNCTION TESTS Results are reliable and reproducible. Spirometry: Pre-bronchodilator FEV1 is 0.93 L, 38% predicted. Pre- bronchodilator FVC is 1.55 L, 49% predicted. FEV1/FVC is 60%, decreased, consistent with airflow obstruction. After bronchodilator, FEV1 increases to 1.08 L, 44% of predicted, consistent with a 16% increase. This is 150 ml increase. The post bronchodilator FVC is 1.71 L, 54% predicted, 10% increase. These are not statistically significant changes. Lung volumes: Total lung capacity is 3.46 L, 59%, consistent with moderate restriction. Residual volume is 1.90 L, 81%, normal. RV/TLC is 65%, increased. Airway resistance 631%, elevated. Diffusion: DLCO is 8.7, 37% predicted, severely decreased. DLCO/VA is 3.54, 99%, normal. Flow volume loop: Coving of the expiratory limb consistent with airflow obstruction. IMPRESSION: Severe obstructive ventilatory impairment without a significant response to bronchodilator, moderate restrictive impairment, and a severe decrease in diffusion which corrects for alveolar volume. Lack of response to bronchodilator should not preclude use if clinically indicated. Compared to a prior study on 11/05/2020, the FEV1 was 1.02 L, 41% predicted, now 0.93 L, 38%. The FVC was 1.58 L, 49% predicted, no change. The ratio was 82% predicted. There was an 8% increase in the FEV1 and the FVC. Total lung capacity was 53% predicted 3.08 L, now higher, 59% predicted 3.46 L. DLCO was 31%, now 37%. DLCO/VA was also normal in 2020, 98%. There is more obstruction, same restriction and same diffusion abnormality. Clinical correlation recommended. Honey Kaplan MD
== END 2022-11-24 11:57 | disposition home or self-care (01) ==
LOC: CHSCARD 11:58
PROVIDERS: PCP Internal Medicine
DX: R06.00 Dyspnea, unspecified (principal)
CPT/HCPCS: 36600; 82805; 94060; 94618; 94726; 94729

== ENCOUNTER 2023-03-30 11:00 | Outpatient (RCR) | payer MEDICARE, OTHER, SELFPAY | END 2023-04-15 12:39 | disposition home or self-care (01) | PROVIDERS: PCP Internal Medicine | DX: J44.9 Chronic obstructive pulmonary disease, unspecified (principal); J98.4 Other disorders of lung; I50.9 Heart failure, unspecified | CPT/HCPCS: 94625 ==

== ENCOUNTER 2023-12-07 12:44 | Outpatient (CLI) | payer MEDICARE, SELFPAY ==
[2023-12-07 13:06] LABS: Basophils Absolute Auto 0.06 K/mm3 (0.00-0.10); Basophils Percent Auto 0.7 % (0.0-1.0); Eosinophils Absolute Auto 0.15 K/mm3 (0.02-0.50); Eosinophils Percent Auto 1.7 % (1.0-6.0); Hematocrit 40.4 % (35.0-42.0); Hemoglobin 12.4 g/dL (11.7-13.8); Immature Granulocyte Absolute 0.04 K/mm3 (0.00-0.00); Immature Granulocyte Percent A 0.5 % (0.0-0.0); Lymphocytes Percent Auto 14.9 % (18.0-42.0); Mean Corpuscular HGB Conc 30.7 g/dL (32-36); Mean Corpuscular Hemoglobin 26.4 pg (27.0-31.0); Mean Corpuscular Volume 86.1 fL (78.0-102.0); Mean Platelet Volume 9.8 fl (9.2-11.8); Neutrophils Absolute Auto 6.49 K/mm3 (1.70-7.20); Neutrophils Percent Auto 74.2 % (50.0-70.0); Platelet Count Result 246 K/mm3 (150-420); Red Blood Count 4.69 M/mm3 (4.20-5.40); Red Cell Distribution Width 16.3 % (11.6-14.4); White Blood Count 8.7 K/mm3 (4.8-10.8)
[2023-12-07 13:40] LABS: Alanine Aminotransferase 17 U/L (14-59); Albumin Level 4.2 g/dL (3.4-5.0); Alkaline Phosphatase 56 U/L (46-116); Anion Gap 9 mmol/L (4-12); Aspartate Amino Transferase 18 U/L (15-37); Bilirubin,Total 0.8 mg/dL (0.00-1.00); Blood Urea Nitrogen 38 mg/dL (7-18); CRP 1.4 mg/dL (0.0-0.9); Calcium 9.6 mg/dL (8.5-10.1); Carbon Dioxide 35 mmol/L (21-32); Chloride 93 mmol/L (98-108); Estimated Glomerular Filt Rate 40; Glucose 145 mg/dL (70-99); Magnesium 2.4 mg/dL (1.8-2.4); NT Pro B Type Natriuretic Pept 757 pg/mL (0-125); Osmolality Calculated 296 mOsm/kg (285-295); Sodium 137 mmol/L (136-145); Thyroid Stimulating Hormone 2.55 uIU/mL (0.36-3.74); Total Protein 7.8 g/dL (6.4-8.2)
== END 2023-12-07 12:45 | disposition home or self-care (01) ==
LOC: CHSLAB 12:49
PROVIDERS: PCP Internal Medicine; Visit Provider Internal Medicine
DX: I50.9 Heart failure, unspecified (principal); M06.9 Rheumatoid arthritis, unspecified
CPT/HCPCS: 36415; 80053; 83735; 83880; 84443; 85025; 86140

== ENCOUNTER 2024-02-18 03:16 | Emergency (ER) | payer MEDICARE, OTHER, SELFPAY ==
--- NOTE | ~2024-02-18 | CT_ITS ---
EXAMINATION: CT abdomen pelvis w con DATE: 02/18/2024 04:37 INDICATION: Vomiting. TECHNIQUE: Computed tomography (CT) of the abdomen and pelvis was performed with 100 mL Omnipaque 350 intravenous contrast. Automated exposure control and iterative reconstruction technique were employe d. The dose-length product was 1310.00 mGy-cm. COMPARISON: CT abdomen and pelvis 11/09/2022 FINDINGS: The visualized portions of the lung bases demonstrate mild atelectasis. There is a moderate -sized loculated right pleural effusion. Cardiomegaly is noted. There are coronary artery calcificati ons. There are changes of mitral valve replacement. No pericardial effusion. The liver is normal. The re are changes of cholecystectomy. There is mild splenomegaly. The pancreas and adrenal glands are no rmal. There is cortical thinning of the kidneys. The appendix is not visualized. There are umbilical and infraumbilical ventral hernias containing fat. There is a small volume of ascites. Body wall karina a is noted. There are no pathologically enlarged lymph nodes. There is a total left hip arthroplasty. There is severe lower lumbar spondylosis. IMPRESSION: 1. Chronic moderate-sized loculated right pleural effusion. 2. Umbilical hernia and infraumbilical ventral hernia containing fat. 3. Small volume of ascites. Reviewed, dictated and finalized at location A.
[2024-02-18 03:19] VITALS: BP 172/81; PULSE 94; RESP 18; TEMP 36.9; O2SAT 93
--- NOTE | 2024-02-18 03:44 | ED.ABDPAIN ---
HPI - Abdominal Pain General Chief Complaint: Abdominal Pain Stated Complaint: abdominal pain Time Seen by Provider: 02/18/24 03:42 Source: patient Mode of arrival: ambulatory Limitations: no limitations History of Present Illness HPI narrative: this is a 73-year-old female with complaints of lower abdominal pain and periumbilical suprapubic with no dysuria no flank pain no hematuria no fever chills no chest pain or shortness of breath patient states that she just does not feel well she is nauseated with no vomiting no diarrhea or constipation. MD elicited complaint: abdominal pain Pertinent past history: none Onset (ago): week(s) Pain Consistency: intermittent Location: periumbilical and suprapubic Severity: mild Quality: cramping Related Data Home Medications Medication Instructions Recorded Confirmed folic acid 1 mg tablet 1 mg PO DAILY 09/19/20 02/18/24 methotrexate sodium 2.5 mg tablet 2.5 mg PO WEEKLY 09/19/20 02/18/24 pantoprazole 40 mg tablet,delayed 40 mg PO DAILY 09/19/20 02/18/24 release cetirizine 5 mg tablet 5 mg PO DAILY 02/18/24 02/18/24 duloxetine 20 mg capsule,delayed 20 mg PO DAILY 02/18/24 02/18/24 release spironolactone 25 mg tablet 25 mg PO DAILY 02/18/24 02/18/24 Allergies Allergy/AdvReac Type Severity Reaction Status Date / Time nizatidine Allergy Severe Unknown Verified 11/09/22 14:54 Review of Systems Review of Systems: All systems reviewed & are unremarkable except as noted in HPI and below PMFSH Past Medical History Medical History Acute renal failure Calculus of gallbladder with chronic cholecystitis without obstruction Congestive heart failure COPD exacerbation Depression Encounter for surgical aftercare following surgery of digestive system GERD (gastroesophageal reflux disease) Incisional hernia without obstruction or gangrene Rheumatoid arthritis Surgical History Surgical History Mitral valve replaced Family History Family History Other Diabetes mellitus Malignant neoplasm of prostate Social History Social History Smoking packs per day: 1 Smoking cigarettes per day: 20.0 Years smoked: 20 Smoking pack-years: 20.00 Smoking status: Former smoker Tobacco type: cigarettes Smoking end date: 07/05/90 Alcohol intake: never Drinks per week: 2 Substance use: never Gender identity (if verbalized by the patient): Female Sexual Orientation (if Verbalized by the Patient): Straight or Heterosexual Spiritual care concerns: No Exam Const: General: healthy appearing and no acute distress Nutritional Appearance: well nourished Orientation/consciousness: patient oriented x3 Limitations: no limitations HENMT: Head: normal to inspection Eyes: Conjunctivae: conjunctivae normal Neck: Neck: normal visual inspection Chest: Chest palpation & inspection: normal inspection of the chest Resp: Effort & Inspection: normal respiratory effort Auscultation: clear to auscultation bilaterally Cardio: Rate: regular rate Rhythm: regular rhythm GI: GI Palp: Yes Soft to palpation and Yes Tenderness to palpation present (GI) Auscultation: normal bowel sounds Back/Spine/Pelvis: Back: no CVA tenderness Skin: General skin exam: normal color Rashes: no rashes Course Course Emergency Course: Patient had blood work performed and urinalysis with no significant abnormalities. CT scan of the abdomen pelvis performed reviewed which showed chronic findings. Advised patient to follow with her doctor as scheduled at 1:30 a.m. this afternoon. Vital Signs Vital signs: Vital Signs Temperature 36.9 C 02/18/24 03:19 Pulse Rate 94 02/18/24 03:19 Respiratory Rate 18 02/18/24 03:19 Blood Pressure 172/81 H 02/18/24 03:19 Pul
--- NOTE | 2024-02-18 03:45 | PC.NURSE ---
commode taken to pts room. pt is unable to urinate at this time. assisted pt with removing pants
[2024-02-18 04:01] LABS: Basophils Absolute Auto 0.03 K/mm3 (0.00-0.10); Basophils Percent Auto 0.3 % (0.0-1.0); Eosinophils Absolute Auto 0.09 K/mm3 (0.02-0.50); Hematocrit 31.9 % (35.0-42.0); Hemoglobin 9.8 g/dL (11.7-13.8); Immature Granulocyte Absolute 0.06 K/mm3 (0.00-0.00); Immature Granulocyte Percent A 0.6 % (0.0-0.0); Lymphocytes Absolute Auto 0.54 K/mm3 (1.10-4.50); Lymphocytes Percent Auto 5.8 % (18.0-42.0); Mean Corpuscular HGB Conc 30.7 g/dL (32-36); Mean Corpuscular Hemoglobin 26.5 pg (27.0-31.0); Mean Corpuscular Volume 86.2 fL (78.0-102.0); Mean Platelet Volume 10.3 fl (9.2-11.8); Monocytes Absolute Auto 0.32 K/mm3 (0.10-0.90); Monocytes Percent Auto 3.4 % (2.0-11.0); Neutrophils Absolute Auto 8.32 K/mm3 (1.70-7.20); Neutrophils Percent Auto 88.9 % (50.0-70.0); Platelet Count Result 128 K/mm3 (150-420); Red Cell Distribution Width 18.6 % (11.6-14.4); White Blood Count 9.4 K/mm3 (4.8-10.8)
[2024-02-18] MEDS: SODIUM CHLORIDE 0.9% IV 1,000 ML 999 ML IV CONT (04:11)
[2024-02-18 04:12] LABS: INR 1.2; Partial Thromboplastin Time 26.4 Sec (23.9-30.70); Prothrombin Time 13.3 Seconds (9.50-12.1)
[2024-02-18] MEDS: KETOROLAC 30 MG/ML VIAL (*BKC) IV PUSH (04:12)
[2024-02-18] MEDS: ONDANSETRON INJ 4 MG/2 ML VIAL IV PUSH (04:12)
[2024-02-18 04:16] LABS: Lactic Acid Reflex 0.9 mmol/L (0.4-2.0)
[2024-02-18 04:19] LABS: Alanine Aminotransferase 19 U/L (14-59); Albumin Level 3.3 g/dL (3.4-5.0); Alkaline Phosphatase 39 U/L (46-116); Anion Gap 7 mmol/L (4-12); Aspartate Amino Transferase 20 U/L (15-37); Bilirubin,Total 1.9 mg/dL (0.00-1.00); Blood Urea Nitrogen 17 mg/dL (7-18); Carbon Dioxide 29 mmol/L (21-32); Chloride 99 mmol/L (98-108); Estimated CRCL calculation 67 ml/min; Estimated Glomerular Filt Rate > 60; Glucose 142 mg/dL (70-99); Lipase 28 U/L (16-77); Osmolality Calculated 283 mOsm/kg (285-295); Potassium 3.8 mmol/L (3.5-5.1); Sodium 135 mmol/L (136-145); Total Protein 6.4 g/dL (6.4-8.2)
[2024-02-18 05:00] VITALS: BP 162/84; PULSE 75; RESP 18; O2SAT 97
--- NOTE | 2024-02-18 05:45 | PC.NURSE ---
Pt is unable to urinate after several attempts. pt straight cathed to obtain urine sample for lab.
[2024-02-18 05:59] LABS: Add Urine Microscopic? YES; Appearance Urine Clear (Clear); Bilirubin Urine 1+ (Negative); Blood Urine Negative (Negative); Color Urine Dark Yellow (Yellow); Glucose Urine UA Negative (Negative); Ketones Urine Negative (Negative); Leukocyte Esterase Ur Negative LEU/UL (Negative); Nitrate Urine Negative (Negative); Protein Urine 2+ (Negative); Specific Grav Ur <= 1.005 (1.010-1.020)
[2024-02-18 06:14] LABS: Bacteria Urine Rare /hpf; RBC Urine None seen /hpf (0-2); Squamous Epithelial Cell Urine None seen /hpf (Few); WBC Urine None seen /hpf (0-3)
[2024-02-18 06:35] VITALS: BP 141/59; PULSE 88; RESP 20; TEMP 36.6; O2SAT 92
== END 2024-02-18 06:35 | disposition home or self-care (01) ==
PROVIDERS: Emergency Provider Emergency Medicine; PCP Internal Medicine
DX: R10.9 Unspecified abdominal pain (principal); I50.9 Heart failure, unspecified; J44.9 Chronic obstructive pulmonary disease, unspecified; Z87.891 Personal history of nicotine dependence; Z79.899 Other long term (current) drug therapy
CPT/HCPCS: 36415; 74177; 80053; 81001; 83605; 83690; 85025; 85610; 85730; 96361; 96374; 96375; 99284; J1885; J2405; J7030; Q9967

== ENCOUNTER 2024-03-31 16:41 | Outpatient (CLI) | payer MEDICARE, OTHER, SELFPAY ==
--- NOTE | ~2024-03-31 | XR_ITS ---
XR chest 2V Ordering provider: Dg Huerta MD History: 73 years Female with . wheezing/cough x1 week . Comparison: October 22, 2022 FINDINGS: MEDIASTINUM: The cardiac silhouette is not enlarged. Postoperative changes in the mediastinum. LUNGS: No pneumothorax. Opacification in the right lower lobe area suggestive of atelectasis versus p neumonia with pleural effusion. No change from previous examination. OTHER: No free air under the diaphragm. IMPRESSION: Right lower lobe atelectasis versus pneumonia with pleural effusion unchanged from previous examinati on. Reviewed, dictated and finalized at location A. IMPRESSION: Right lower lobe atelectasis versus pneumonia with pleural effusion unchanged f rom previous examination.
[2024-03-31 17:00] LABS: Basophils Absolute Auto 0.03 K/mm3 (0.00-0.10); Basophils Percent Auto 0.4 % (0.0-1.0); Eosinophils Absolute Auto 0.21 K/mm3 (0.02-0.50); Eosinophils Percent Auto 2.9 % (1.0-6.0); Hematocrit 35.7 % (35.0-42.0); Hemoglobin 10.8 g/dL (11.7-13.8); Immature Granulocyte Absolute 0.04 K/mm3 (0.00-0.00); Immature Granulocyte Percent A 0.6 % (0.0-0.0); Lymphocytes Absolute Auto 1.01 K/mm3 (1.10-4.50); Lymphocytes Percent Auto 14.2 % (18.0-42.0); Mean Corpuscular HGB Conc 30.3 g/dL (32-36); Mean Corpuscular Hemoglobin 26.4 pg (27.0-31.0); Mean Corpuscular Volume 87.3 fL (78.0-102.0); Monocytes Absolute Auto 0.48 K/mm3 (0.10-0.90); Monocytes Percent Auto 6.7 % (2.0-11.0); Neutrophils Absolute Auto 5.36 K/mm3 (1.70-7.20); Neutrophils Percent Auto 75.2 % (50.0-70.0); Platelet Count Result 188 K/mm3 (150-420); Red Blood Count 4.09 M/mm3 (4.20-5.40); Red Cell Distribution Width 19.9 % (11.6-14.4); White Blood Count 7.1 K/mm3 (4.8-10.8)
[2024-03-31 18:06] LABS: Anion Gap 10 mmol/L (4-12); Blood Urea Nitrogen 16 mg/dL (7-18); Calcium 9.1 mg/dL (8.5-10.1); Carbon Dioxide 29 mmol/L (21-32); Chloride 101 mmol/L (98-108); Estimated Glomerular Filt Rate > 60; Glucose 102 mg/dL (70-99); Osmolality Calculated 291 mOsm/kg (285-295); Potassium 4.3 mmol/L (3.5-5.1); Sodium 140 mmol/L (136-145)
== END 2024-03-31 16:42 | disposition home or self-care (01) ==
LOC: CHSLAB 16:44
PROVIDERS: PCP Internal Medicine; Visit Provider Nurse Practitioner Family
DX: R06.2 Wheezing (principal); J06.9 Acute upper respiratory infection, unspecified; R91.8 Other nonspecific abnormal finding of lung field
CPT/HCPCS: 36415; 71046; 80048; 85025

== ENCOUNTER 2024-04-21 12:15 | Outpatient (CLI) | payer MEDICARE, OTHER, SELFPAY ==
--- NOTE | ~2024-04-21 | XR_ITS ---
XR chest 2V 04/21/2024 12:29 Indication: Shortness of breath and cough Procedure: 2 view chest Comparison: Comparison to multiple prior studies sequentially, with oldest reviewed study dated 02/12. Findings: Status post median sternotomy for CABG. There is a prosthetic heart valve. Elevated right d iaphragm. There is a right pleural effusion. Right basilar atelectasis. Impression: 1: Right pleural effusion with underlying compressive atelectasis. Reviewed, dictated and finalized at location B. Impression: 1: Right pleural effusion with underlying compressive atelectasis.
== END 2024-04-21 12:16 | disposition home or self-care (01) ==
LOC: CHSIMG 12:17
PROVIDERS: PCP Internal Medicine; Visit Provider Nurse Practitioner Family
DX: J18.9 Pneumonia, unspecified organism (principal); J90 Pleural effusion, not elsewhere classified; J98.11 Atelectasis
CPT/HCPCS: 71046

== ENCOUNTER 2024-05-16 12:14 | Outpatient (CLI) | payer MEDICARE, OTHER, SELFPAY ==
[2024-05-16 12:59] LABS: Basophils Absolute Auto 0.06 K/mm3 (0.00-0.10); Basophils Percent Auto 1.1 % (0.0-1.0); Eosinophils Absolute Auto 0.12 K/mm3 (0.02-0.50); Eosinophils Percent Auto 2.1 % (1.0-6.0); Hematocrit 31.9 % (35.0-42.0); Hemoglobin 9.9 g/dL (11.7-13.8); Immature Granulocyte Absolute 0.01 K/mm3 (0.00-0.00); Immature Granulocyte Percent A 0.2 % (0.0-0.0); Immature Reticulocyte Fraction 26.7 % (2.0-16.52); Lymphocytes Absolute Auto 0.69 K/mm3 (1.10-4.50); Lymphocytes Percent Auto 12.2 % (18.0-42.0); Mean Corpuscular Hemoglobin 27.1 pg (27.0-31.0); Mean Corpuscular Volume 87.4 fL (78.0-102.0); Mean Platelet Volume 10.6 fl (9.2-11.8); Monocytes Absolute Auto 0.51 K/mm3 (0.10-0.90); Neutrophils Absolute Auto 4.26 K/mm3 (1.70-7.20); Neutrophils Percent Auto 75.4 % (50.0-70.0); Platelet Count Result 149 K/mm3 (150-420); Red Blood Count 3.65 M/mm3 (4.20-5.40); Red Cell Distribution Width 18.5 % (11.6-14.4); Reticulocyte Hemoglobin Conten 26.8 pg (28.0-35.0); Reticulocyte Percent 2.18 % (0.50-1.50); Reticulocytes Absolute 0.08 M/mm3 (0.02-0.10); White Blood Count 5.7 K/mm3 (4.8-10.8)
[2024-05-16 13:45] LABS: Alanine Aminotransferase 19 U/L (14-59); Albumin Level 3.5 g/dL (3.4-5.0); Alkaline Phosphatase 51 U/L (46-116); Anion Gap 10 mmol/L (4-12); Aspartate Amino Transferase 15 U/L (15-37); Bilirubin,Total 1.1 mg/dL (0.00-1.00); Blood Urea Nitrogen 18 mg/dL (7-18); CRP 1.8 mg/dL (0.0-0.9); Calcium 9.3 mg/dL (8.5-10.1); Carbon Dioxide 31 mmol/L (21-32); Chloride 101 mmol/L (98-108); Estimated Glomerular Filt Rate 55; Glucose 94 mg/dL (70-99); NT Pro B Type Natriuretic Pept 4084 pg/mL (0-125); Osmolality Calculated 295 mOsm/kg (285-295); Sodium 142 mmol/L (136-145); Total Protein 6.5 g/dL (6.4-8.2)
== END 2024-05-16 12:15 | disposition home or self-care (01) ==
LOC: CHSLAB 12:17
PROVIDERS: PCP Internal Medicine; Visit Provider Internal Medicine
DX: R11.0 Nausea (principal); K21.9 Gastro-esophageal reflux disease without esophagitis; R06.00 Dyspnea, unspecified
CPT/HCPCS: 36415; 80053; 83735; 83880; 85025; 85046; 86140

== ENCOUNTER 2024-07-07 09:46 | Outpatient (CLI) | payer MEDICARE, OTHER, SELFPAY ==
[2024-07-07 10:11] VITALS: BP 137/57; PULSE 83; RESP 18; TEMP 36.3; O2SAT 93; BMI 64.1
[2024-07-07] MEDS: IRON SUCROSE COMPLEX 400 MG in SODIUM CHLORIDE 0.9% IV 250 ML 100 MG IVPB (10:35)
--- NOTE | 2024-07-07 14:15 | PC.NURSE ---
1400 Patient left via WC to personal car. She is Alert/Oriented x 4 able to make needs known. Patient tolerated Venofer infusion well without any adverse effects.
== END 2024-07-07 09:47 | disposition home or self-care (01) ==
PROVIDERS: PCP Internal Medicine; Visit Provider Internal Medicine
DX: D50.9 Iron deficiency anemia, unspecified (principal)
CPT/HCPCS: 96365; 96366; J1756; J7050

== ENCOUNTER 2024-07-17 00:35 | Day surgery (SDC) | payer MEDICARE, OTHER, SELFPAY ==
[2024-07-06 11:47] VITALS: BMI 28.6
[2024-07-17 09:09] VITALS: BP 134/54; PULSE 91; RESP 18; TEMP 36.9; O2SAT 94
[2024-07-17] MEDS: LACTATED RINGERS 1,000 ML 150 ML IV CONT (09:20)
[2024-07-17] MEDS: GENTAMICIN 80MG/SOD CHL 50 ML 80 MG/50 ML BAG 100 MG IVPB (09:22)
--- NOTE | 2024-07-17 09:44 | WPDANESEPPF ---
Anes - Initial Pre Proc Eval Procedure: Operation Date: 07/17/24 10:00 Proposed Procedures p Esophagogastroduodenoscopy & Colonoscopy - Adin Vigil MD Date/Time: 07/17/24 09:44 Surgeon: Adin Vigil MD Pre Op Diagnosis: anemia, Nausea Patient Data Age: 74 Gender: F Height: 1.75 m Weight: 90.2 kg Last Vital Signs Temp 98.5 F 07/17/24 09:09 Pulse 91 07/17/24 09:09 Resp 18 07/17/24 09:09 BP 134/54 L 07/17/24 09:09 Pulse Ox 94 07/17/24 09:09 O2 Del Method Room Air 07/17/24 09:09 Allergies Allergy/AdvReac Type Severity Reaction Status Date / Time nizatidine Allergy Severe Unknown Verified 07/17/24 09:07 Home Medications ?Medication ?Instructions ?Recorded ?Confirmed ?Type folic acid 1 mg tablet 1 mg PO DAILY 09/19/20 07/17/24 History methotrexate sodium 2.5 mg tablet 2.5 mg PO WEEKLY 09/19/20 07/17/24 History pantoprazole 40 mg tablet,delayed 40 mg PO DAILY 09/19/20 07/17/24 History release furosemide 40 mg tablet 40 mg PO BID #30 tabs 05/20/21 07/17/24 Rx cetirizine 5 mg tablet 5 mg PO DAILY 02/18/24 07/07/24 History duloxetine 20 mg capsule,delayed 20 mg PO DAILY 02/18/24 07/07/24 History release spironolactone 25 mg tablet 25 mg PO DAILY 02/18/24 07/07/24 History dicyclomine 20 mg tablet 20 mg PO DAILY 07/06/24 07/17/24 History omeprazole 40 mg capsule,delayed 40 mg PO DAILY 07/06/24 07/17/24 History release Patient hx anesthesia problems: none Family hx anesthesia problems: none Results Review: All pre-operative results and documents have been reviewed as part of the pre-operative evaluation. [facility] Past Medical History Medical History Acute renal failure Calculus of gallbladder with chronic cholecystitis without obstruction Congestive heart failure COPD exacerbation Depression Encounter for surgical aftercare following surgery of digestive system GERD (gastroesophageal reflux disease) Incisional hernia without obstruction or gangrene Rheumatoid arthritis Surgical History Surgical History Mitral valve replaced Family History Family History Other Diabetes mellitus Malignant neoplasm of prostate Social History Social History Smoking packs per day: 1 Smoking cigarettes per day: 20.0 Years smoked: 20 Smoking pack-years: 20.00 Smoking status: Former smoker Tobacco type: cigarettes Smoking end date: 07/05/90 Alcohol intake: never Drinks per week: 2 Substance use: never Substance use type: does not use Living arrangements: alone Additional living arrangements comments: [facility] A FEW MONTHS AGO (APR 2024), PT HAVING DIFFICULTY MAKING IT ON HER OWN, PT HAS FRIENDS CHECK ON HER, GETS SOB EASILY, WEAR MEDICAL ALERT NECKLACE, SON GIUSEPPE LIVES 20 MINUTES AWAY, SON VERY BUSY Gender identity (if verbalized by the patient): Female Sexual Orientation (if Verbalized by the Patient): Straight or Heterosexual Spiritual care concerns: No Anes - Eval Final PreProcedure Day of Procedure 07/17/24 09:44 Patient weight: normal Heart: regular rate and rhythm Lungs: clear to auscultation Airway: Mallampati scale class III Neurological: alert and oriented Last oral intake: >/= 8 hours ASA classification: III Emergent: no Anesthetic plan: proceed Anesthesia type and monitoring: general GIVS and standard monitoring Results Review: All pre-operative results and documents have been reviewed as part of the pre-operative evaluation. Informed Consent: The patient's anesthetic plan and its attendant risks and benefits were discussed with the patient/family/POA. Questions were solicited and answers provided to the satisfaction of the patient/family/POA.
[2024-07-17] MEDS: AMPICILLIN 2 GM/NS 100 ML 2 GM/100 ML BAG IVPB (09:46)
--- NOTE | 2024-07-17 10:05 | PM.HPGS ---
History of Present Illness History of Present Illness Consent: Risks, benefits, and alternatives have been discussed and questions answered. Patient agrees to proceed with procedure. Chief complaint: anemia, Nausea Narrative: Ariadne Okeefe is a 74 year old female with maria, no overt gib, last colonoscopy more than 5 years ago Review of Systems Review of Systems: All systems reviewed & are unremarkable except as noted in HPI and below PMFSH Past Medical History Medical History (Updated 07/17/24 @ 10:06 by Adin Vigil MD) Anemia Rheumatoid arthritis GERD (gastroesophageal reflux disease) COPD exacerbation Congestive heart failure Depression Acute renal failure Calculus of gallbladder with chronic cholecystitis without obstruction Encounter for surgical aftercare following surgery of digestive system Incisional hernia without obstruction or gangrene Surgical History Surgical History Mitral valve replaced Family History Family History Other Diabetes mellitus Malignant neoplasm of prostate Social History Social History Smoking packs per day: 1 Smoking cigarettes per day: 20.0 Years smoked: 20 Smoking pack-years: 20.00 Smoking status: Former smoker Tobacco type: cigarettes Smoking end date: 07/05/90 Alcohol intake: never Drinks per week: 2 Substance use: never Substance use type: does not use Living arrangements: alone Additional living arrangements comments: LOST [facility]OUSE A FEW MONTHS AGO (APR 2024), PT HAVING DIFFICULTY MAKING IT ON HER OWN, PT HAS FRIENDS CHECK ON HER, GETS SOB EASILY, WEAR MEDICAL ALERT NECKLACE, SON GIUSEPPE LIVES 20 MINUTES AWAY, SON VERY BUSY Gender identity (if verbalized by the patient): Female Sexual Orientation (if Verbalized by the Patient): Straight or Heterosexual Spiritual care concerns: No Meds Home Medications and Allergies Home Medications ?Medication ?Instructions ?Recorded ?Confirmed ?Type folic acid 1 mg tablet 1 mg PO DAILY 09/19/20 07/17/24 History methotrexate sodium 2.5 mg tablet 2.5 mg PO WEEKLY 09/19/20 07/17/24 History pantoprazole 40 mg tablet,delayed 40 mg PO DAILY 09/19/20 07/17/24 History release furosemide 40 mg tablet 40 mg PO BID #30 tabs 05/20/21 07/17/24 Rx cetirizine 5 mg tablet 5 mg PO DAILY 02/18/24 07/07/24 History duloxetine 20 mg capsule,delayed 20 mg PO DAILY 02/18/24 07/07/24 History release spironolactone 25 mg tablet 25 mg PO DAILY 02/18/24 07/07/24 History dicyclomine 20 mg tablet 20 mg PO DAILY 07/06/24 07/17/24 History omeprazole 40 mg capsule,delayed 40 mg PO DAILY 07/06/24 07/17/24 History release Allergies Allergy/AdvReac Type Severity Reaction Status Date / Time nizatidine Allergy Severe Unknown Verified 07/17/24 09:07 Vital Signs Vital Signs - 24 hr 07/17/24 09:09 Temperature 98.5 F Pulse Rate 91 Respiratory Rate 18 Blood Pressure 134/54 L Pulse Oximetry 94 Oxygen Delivery Room Air Exam Const: General: comfortable and no acute distress HENMT: Face/Nose/Sinus: Normal nares present Eyes: General: appearance normal, both eyes and all related structures Neck: Neck: no JVD Resp: Auscultation: clear to auscultation bilaterally Cardio: Rate: regular rate GI: Inspection: non-distended GI Palp: Yes Soft to palpation Skin: General skin exam: normal color Neuro: Speech: normal speech Extrem: General: normal to inspection Psych: Mental Status: mental status grossly normal Assessment and Plan Assessment and plan (1) Anemia: Code(s): D64.9 - Anemia, unspecified Status: Acute Assessment and Plan: egd and colonoscopy to assess if gi source
[2024-07-17] MEDS: BENZOCAINE (*SP) 60 ML SPRAY CAN (HURRICAINE) 1 SPRAY MUCOUS MEM (10:15)
--- NOTE | 2024-07-17 10:33 | SUR.OPER ---
EGD start 1017 end 102, Colonoscopy start 102
[2024-07-17 10:52] VITALS: BP 99/38; PULSE 76; RESP 20; O2SAT 100
[2024-07-17 11:02] VITALS: BP 98/39; PULSE 76; RESP 20; O2SAT 95
[2024-07-17 11:12] VITALS: BP 122/52; PULSE 77; RESP 20; O2SAT 98
--- NOTE | 2024-07-17 12:46 | SUR.PHASEII ---
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 PT MEETS DISCHARGE CRITERIA AFTER EGD/COLONOSCOPY. AFTER GIVEN HER OPTIONS, PT CALLED SON GIUSEPPE AND PT DECIDED THAT SHE PREFERS TO GO TO [facility] AFTER HER DISCHARGE TO BE EVALUATED FOR HEALTH CONCERNS SHE HAD PRIOR TO ARRIVAL TODAY. PT'S RIDE KATHIA AT BEDSIDE AND AWARE. ASSISTED PT WITH DRESSING AND ASSISTED PT INTO CAR, DISCHARGE INSTRUCTIONS GIVEN.
== END 2024-07-17 12:35 | disposition home or self-care (01) ==
PROVIDERS: PCP Internal Medicine; Referring Provider Internal Medicine; Visit Provider Internal Medicine Gastroenterology
PROC: 0DJ08ZZ Inspection of Upper Intestinal Tract, Via Natural or Artificial Opening Endoscopic (ICD-10-PCS; CPT 45378; principal; 2024-07-17 10:00)
DX: D12.2 Benign neoplasm of ascending colon (principal); D12.3 Benign neoplasm of transverse colon; K64.8 Other hemorrhoids; K57.30 Diverticulosis of large intestine without perforation or abscess without bleeding; D64.9 Anemia, unspecified; K21.9 Gastro-esophageal reflux disease without esophagitis; M06.9 Rheumatoid arthritis, unspecified; J44.9 Chronic obstructive pulmonary disease, unspecified; I50.9 Heart failure, unspecified; F32.A Depression, unspecified; N17.9 Acute kidney failure, unspecified; Z98.890 Other specified postprocedural states; Z95.2 Presence of prosthetic heart valve; Z87.19 Personal history of other diseases of the digestive system; Z87.891 Personal history of nicotine dependence; Z80.42 Family history of malignant neoplasm of prostate
CPT/HCPCS: 43239; 45385; 88305; J0290; J1580; J2003; J2704; J7120

== ENCOUNTER 2024-07-17 13:05 | Inpatient (IN) | payer MEDICARE, OTHER, SELFPAY ==
--- NOTE | ~2024-07-17 | XR_ITS ---
XR chest 1V portable Ordering provider: Bradley Langley III, DO History: 74 years Female with . SOB X months, valve placement X 8 yrs ago . Comparison: April 21, 2024 FINDINGS: MEDIASTINUM: The cardiac silhouette is not enlarged. Postoperative changes in the mediastinum. Congestive vipul. LUNGS: No pneumothorax. Opacification in the right lower lobe with pleural effusion. Bilateral inters titial changes. OTHER: No free air under the diaphragm. IMPRESSION: Right lower lobe atelectasis versus pneumonia with pleural effusion. Underlying cardiac decompensation and pulmonary edema is not excluded. Reviewed, dictated and finalized at location A. TIC CNC MACHINE OPERATOR
--- NOTE | ~2024-07-17 | US_ITS ---
EXAMINATION: US venous doppler UE RT DATE: 07/20/2024 11:17 INDICATION: Right upper limb pain and swelling. TECHNIQUE: Grayscale ultrasound images without and with compression and Doppler ultrasound images of the right upper extremity veins were obtained. COMPARISON: None. FINDINGS: The visualized portions of the right internal jugular vein, subclavian vein, axillary vein, brachial veins, basilic vein, radial vein, and ulnar vein are patent. There is thrombus in right cephalic vein . IMPRESSION: 1. No deep venous thrombosis. 2. Superficial vein thrombosis involving right cephalic vein. Reviewed, dictated and finalized at location A. E SEWER
--- NOTE | ~2024-07-17 | US_ITS ---
EXAMINATION: US venous doppler [facility] DATE: 07/20/2024 11:17 INDICATION: Lower limb pain and swelling. TECHNIQUE: Grayscale ultrasound images without and with compression and Doppler ultrasound images of the bilateral lower extremity veins were obtained. COMPARISON: Ultrasound 09/26/2020 FINDINGS: The visualized portions of right common femoral vein, profunda (deep) femoral vein, femoral vein, pop liteal vein, peroneal veins, posterior tibial veins, and greater saphenous vein outflow are patent. The visualized portions of left common femoral vein, profunda femoral vein, femoral vein, popliteal v ein, peroneal veins, posterior tibial veins, and greater saphenous vein outflow are patent. IMPRESSION: 1. No deep venous thrombosis. Reviewed, dictated and finalized at location A. ASSEMBLER
--- NOTE | 2024-07-17 13:13 | ECG_ITS ---
Test Date: 2024-07-17 13:27:04 Measurements Intervals [place] Rate: 81 P: 185 MD: 170 QRS: 93 QRSD: 88 T: 89 QT: 395 QTc: 460 Interpretive Statements SINUS RHYTHM BORDERLINE RIGHT AXIS DEVIATION [QRS AXIS > 90] NONSPECIFIC T-WAVE ABNORMALITY No previous ECG available for comparison Electronically Signed On 07-17-2024 21:49:17 [employer] by Babita Gilbert M.D.
--- NOTE | 2024-07-17 13:16 | ED_ITS ---
HPI - Extremity Injury (Lower) General Chief Complaint: Extremity Injury, Lower Stated Complaint: swelling legs History of Present Illness HPI Narrative: Pt had colonoscopy at [place] today. Pt had difficulty walking due to swelling in legs and arms and SOB. Pt was advised to come to ER. Pt has been swelling and SOB for a week or so. Pt denies CP. Pt has a history of anemia and CHF. Pt takes Lasix 40 mg daily. Related Data Home Medications ?Medication ?Instructions ?Recorded ?Confirmed ?Last Taken ?Type folic acid 1 mg tablet 1 mg PO DAILY 09/19/20 07/17/24 07/16/24 History methotrexate sodium 2.5 mg tablet 2.5 mg PO WEEKLY 09/19/20 07/17/24 07/16/24 History pantoprazole 40 mg tablet,delayed 40 mg PO DAILY 09/19/20 07/17/24 07/16/24 History release cetirizine 5 mg tablet 5 mg PO DAILY 02/18/24 07/07/24 07/07/24 10:05 History duloxetine 20 mg capsule,delayed 20 mg PO DAILY 02/18/24 07/07/24 07/07/24 10:04 History release spironolactone 25 mg tablet 25 mg PO DAILY 02/18/24 07/07/24 07/06/24 10:05 History dicyclomine 20 mg tablet 20 mg PO DAILY 07/06/24 07/17/24 07/16/24 History omeprazole 40 mg capsule,delayed 40 mg PO DAILY 07/06/24 07/17/24 07/16/24 History release albuterol sulfate 90 mcg/actuation inhalation 07/17/24 Unknown History aerosol inhaler Allergies Allergy/AdvReac Type Severity Reaction Status Date / Time nizatidine Allergy Severe Unknown Verified 07/17/24 13:44 Review of Systems 2 Review of Systems: All systems reviewed & are unremarkable except as noted in HPI and below PMFSH Past Medical History Medical History (Updated 07/17/24 @ 14:16 by Bradley Langley III, DO) Anemia Rheumatoid arthritis GERD (gastroesophageal reflux disease) COPD exacerbation Congestive heart failure Depression Acute renal failure Calculus of gallbladder with chronic cholecystitis without obstruction Encounter for surgical aftercare following surgery of digestive system Incisional hernia without obstruction or gangrene Surgical History Surgical History Mitral valve replaced Family History Family History Other Diabetes mellitus Malignant neoplasm of prostate Social History Social History Smoking packs per day: 1 Smoking cigarettes per day: 20.0 Years smoked: 20 Smoking pack-years: 20.00 Smoking status: Former smoker Tobacco type: cigarettes Smoking end date: 07/05/90 Alcohol intake: never Drinks per week: 2 Substance use: never Substance use type: does not use Living arrangements: alone Additional living arrangements comments: LOST SPOUSE A FEW MONTHS AGO (APR 2024), PT HAVING DIFFICULTY MAKING IT ON HER OWN, PT HAS FRIENDS CHECK ON HER, GETS SOB EASILY, WEAR MEDICAL ALERT NECKLACE, SON GIUSEPPE LIVES 20 MINUTES AWAY, SON VERY BUSY Gender identity (if verbalized by the patient): Female Sexual Orientation (if Verbalized by the Patient): Straight or Heterosexual Spiritual care concerns: No Exam 2 Const: General: no acute distress Nutritional Appearance: obese O rientation/consciousness: patient oriented x3 Limitations: no limitations Resp: Effort & Inspection: normal respiratory effort Auscultation: crackles Cardio: Rate: regular rate Rhythm: regular rhythm GI: GI Palp: Yes Soft to palpation and No Tenderness to palpation present (GI) Auscultation: normal bowel sounds Skin: General skin exam: normal color Rashes: no rashes Wounds: no wounds Neuro: General: patient oriented x3, moves all extremities, no meningeal signs and no focal motor deficits Speech: normal speech Extrem: General: edema (b/l up to knees) Psych: Mental Status: mental status grossly normal Affect: normal affect Attitude: cooperative Course Vital Signs Vital signs: Vital Signs Oxygen Delivery Room Air 07/17/24 13:05 Temperature 97.8 F 07/17/24 14:32 Pulse Rate 76 07/17/24 14:32 Respiratory Rate 20 07/17/24 14:32 Blood Pressure 134/65 07/17/24 14:32 Pulse Oximetry 94 07/17/24 14:32 Oxygen Delivery Room Air 07/17/24 14:32 MDM - Extremity Injury (Lower) MDM Narrative Medical decision making narrative: pt presents with weakness SOb and edema to extremities for a week. Pt has hx of CHF and this appears likely. Will give lasix and get labs and ekg and cxr. bnp [id number], trop nl. cxr atelectasis vs infiltrate vs fluid overload (latter likely0. ekg nsr rate [address] or t wave changes. Discussed with Latonia Tamez agrees to observation for chf Lab Data 07/17/24 13:23 07/17/24 13:23 Labs: Lab Results 07/17/24 Range/Units 13:23 WBC 12.3 H (4.8-10.8) K/mm3 RBC 3.62 L (4.20-5.40) M/mm3 Hgb 9.3 L (11.7-13.8) g/dL Hct 31.0 L (35.0-42.0) % MCV 85.6 (78.0-102.0) fL MCH 25.7 L (27.0-31.0) pg MCHC 30.0 L (32-36) g/dL RDW 21.2 H (11.6-14.4) % Plt Count 199 (150-420) K/mm3 MPV 10.0 (9.2-11.8) fl Immature Gran % (Auto) 0.5 H (0.0-0.0) % Neut % (Auto) 86.2 H (50.0-70.0) % Lymph % (Auto) 4.8 L (18.0-42.0) % [place] % (Auto) 8.1 (2.0-11.0) % Eos % (Auto) 0.1 L (1.0-6.0) % Baso % (Auto) 0.3 (0.0-1.0) % Lymph # (Auto) 0.59 L (1.10-4.50) K/mm3 [place] # (Auto) 1.00 H (0.10-0.90) K/mm3 Eos # (Auto) 0.01 L (0.02-0.50) K/mm3 Baso # (Auto) 0.04 (0.00-0.10) K/mm3 Abs Immat Gran (auto) 0.06 H (0.00-0.00) K/mm3 Absolute Neuts (auto) 10.62 H (1.70-7.20) K/mm3 Absolute Nucleated RBC 0.00 (0.00-0.00) K/mm3 Nucleated RBC % 0.0 (0-0.0) % PT 13.5 H (9.50-12.1) Seconds INR 1.2 APTT 26.8 (23.9-30.70) Sec Sodium 137 (136-145) mmol/L Potassium 3.6 (3.5-5.1) mmol/L Chloride 97 L (98-108) mmol/L Carbon Dioxide 31 (21-32) mmol/L Anion Gap 9 (4-12) mmol/L BUN 21 H (7-18) mg/dL Creatinine 1.07 H (0.55-1.02) mg/dL Estim Creat Clear Calc 49 ml/min Estimated GFR 50 L (59 - ) Glucose 120 H (70-99) mg/dL Calculated Osmolality 288 (285-295) mOsm/kg Calcium 9.2 (8.5-10.1) mg/dL Magnesium 2.1 (1.8-2.4) mg/dL Total Bilirubin 1.7 H (0.00-1.00) mg/dL AST 11 L (15-37) U/L ALT 10 L (14-59) U/L Alkaline Phosphatase 43 L (46-116) U/L Troponin I 10.5 (0.00-60.4) ng/L NT-Pro-B Natriuret Pep 6494 H (0-125) pg/mL Total Protein 6.6 (6.4-8.2) g/dL Albumin 3.3 L (3.4-5.0) g/dL Discharge Plan Discharge Clinical Impression: CHF (congestive heart failure) Patient Disposition: Still a Patient Condition: Improved Patient Language: Greenlandic Prescriptions: No Action methotrexate sodium 2.5 mg tablet 2.5 mg PO WEEKLY Rx Instructions: every wed. pantoprazole 40 mg tablet,delayed release (DR/EC) 40 mg PO DAILY folic acid 1 mg tablet 1 mg PO DAILY furosemide 40 mg Tablet 40 mg PO BID Qty: 30 0RF Patient Comments: pt states takes once daily albuterol sulfate 90 mcg/actuation HFA aerosol inhaler INHALATION cetirizine 5 mg Tablet 5 mg PO DAILY spironolactone 25 mg tablet 25 mg PO DAILY duloxetine 20 mg capsule,delayed release(DR/EC) 20 mg PO DAILY omeprazole 40 mg capsule,delayed release(DR/EC) 40 mg PO DAILY dicyclomine 20 mg tablet 20 mg PO DAILY Follow-up/Referrals: Dg Huerta MD [Primary Care Provider] -
[2024-07-17 13:17] VITALS: BP 137/65; PULSE 87; RESP 20; TEMP 36.7; O2SAT 92
[2024-07-17] MEDS: FUROSEMIDE INJ 40 MG/4 ML VIAL IV PUSH ×2 (13:19→20:11)
[2024-07-17 13:27] LABS: Basophils Absolute Auto 0.04 K/mm3 (0.00-0.10); Basophils Percent Auto 0.3 % (0.0-1.0); Eosinophils Absolute Auto 0.01 K/mm3 (0.02-0.50); Eosinophils Percent Auto 0.1 % (1.0-6.0); Hemoglobin 9.3 g/dL (11.7-13.8); Immature Granulocyte Absolute 0.06 K/mm3 (0.00-0.00); Immature Granulocyte Percent A 0.5 % (0.0-0.0); Lymphocytes Absolute Auto 0.59 K/mm3 (1.10-4.50); Lymphocytes Percent Auto 4.8 % (18.0-42.0); Mean Corpuscular Hemoglobin 25.7 pg (27.0-31.0); Mean Corpuscular Volume 85.6 fL (78.0-102.0); Monocytes Percent Auto 8.1 % (2.0-11.0); Neutrophils Absolute Auto 10.62 K/mm3 (1.70-7.20); Neutrophils Percent Auto 86.2 % (50.0-70.0); Platelet Count Result 199 K/mm3 (150-420); Red Blood Count 3.62 M/mm3 (4.20-5.40); Red Cell Distribution Width 21.2 % (11.6-14.4); White Blood Count 12.3 K/mm3 (4.8-10.8)
[2024-07-17 13:42] LABS: INR 1.2; Partial Thromboplastin Time 26.8 Sec (23.9-30.70); Prothrombin Time 13.5 Seconds (9.50-12.1)
[2024-07-17 13:49] LABS: Alanine Aminotransferase 10 U/L (14-59); Albumin Level 3.3 g/dL (3.4-5.0); Alkaline Phosphatase 43 U/L (46-116); Anion Gap 9 mmol/L (4-12); Aspartate Amino Transferase 11 U/L (15-37); Bilirubin,Total 1.7 mg/dL (0.00-1.00); Blood Urea Nitrogen 21 mg/dL (7-18); Calcium 9.2 mg/dL (8.5-10.1); Carbon Dioxide 31 mmol/L (21-32); Chloride 97 mmol/L (98-108); Estimated CRCL calculation 49 ml/min; Estimated Glomerular Filt Rate 50; Glucose 120 mg/dL (70-99); Magnesium 2.1 mg/dL (1.8-2.4); NT Pro B Type Natriuretic Pept 6494 pg/mL (0-125); Osmolality Calculated 288 mOsm/kg (285-295); Potassium 3.6 mmol/L (3.5-5.1); Sodium 137 mmol/L (136-145); Total Protein 6.6 g/dL (6.4-8.2); Troponin I 10.5 ng/L (0.00-60.4)
--- NOTE | 2024-07-17 14:26 | PC.NURSE ---
1414 call placed to [facility] 2nd floor for bed assignment. awaiting call back 1424 call placed to [facility] 2nd floor for bed assignment. awaiting call back
[2024-07-17 14:32] VITALS: BP 134/65; PULSE 76; RESP 20; TEMP 36.6; O2SAT 94
[2024-07-17 15:05] VITALS: O2SAT 94
--- NOTE | 2024-07-17 15:15 | PC.NURSE ---
Patient arrived on unit from ED in w/c. Patient transferred from w/c to bed with 1 assist. Patient admitted to room 211 for telemetry observation. Patient educated on general hospital policies, visiting hours, bed controls and use of call light. Patient educated on her fall risk level and fall prevention practices. Admission folder given to patient and patient's family.
[2024-07-17 15:21] VITALS: BP 142/52; PULSE 83; RESP 20; TEMP 36.3; O2SAT 94; BMI 29.9
--- NOTE | 2024-07-17 18:25 | P.PNIM_ITS ---
Progress Note: A&P Assessment and Plan (1) Acute exacerbation of chronic heart failure: Code(s): I50.9 - Heart failure, unspecified Status: Acute Assessment and Plan: patient presented with bilateral lower extremity edema from the hips down to the ankle, reporting shortness of breath with exertion * chest x-ray showing right lower lobe atelectasis versus pneumonia with pleural effusion, underlying cardiac decompensation and pulmonary edema is not excluded * pleural effusion appears to be chronic after review of EMR, she is noted to have a loculated right pleural effusion which is moderate. she is followed by a commercial real estate lender over at [facility] and has not received thoracentesis for this considering it is been there for years. * Continue diuresis with IV Lasix b.i.d. * will obtain an echo considering the significance of her swelling-- concerns for takotsubo cardiomyopathy versus worsening congestive heart failure. Patient recently buried her back in April of this year and has been feeling fatigued and worn down since that time. * Continue heart healthy diet * fluid restriction 1500 mL per day * continue spironolactone * continue to trend troponin, troponin on admission was 10.5 * proBNP 6494 * patient sees Dr. Steele over at [facility] who did her mitral valve replacement however she has not seen him in over a year and can not remember the last time she had an echocardiogram. There is no echocardiogram for review in our EMR. (2) GERD (gastroesophageal reflux disease): Code(s): K21.9 - Gastro-esophageal reflux disease without esophagitis Status: Acute Assessment and Plan: * continue Protonix (3) Anemia: Code(s): D64.9 - Anemia, unspecified Status: Acute Assessment and Plan: * hemoglobin 9.3-- appears to be ongoing since February of this year * will check vitamin B12, folic acid, ferritin, iron, TSH (4) Rheumatoid arthritis: Code(s): M06.9 - Rheumatoid arthritis, unspecified Status: Acute Assessment and Plan: * Currently on methotrexate however this is currently on hold due to it not being formulary-- however she only takes this weekly * she is followed by meat pickler at [facility] in [facility], Dr. Khan * patient has redness to her left hand and down her left forearm which is warm to the touch and tender to touch. she states that she often gets flare-ups in both hands * she is currently getting infusions at [facility] once a month. She is due for her next infusion this * will check ESR and CRP (5) Mitral valve replaced: Code(s): Z95.2 - Presence of prosthetic heart valve Status: Acute Assessment and Plan: * [address] Steele at [facility] (6) Depression: Code(s): F32.9 - Major depressive disorder, single episode, unspecified Status: Acute Assessment and Plan: * continue Cymbalta * recently buried her back in April of last year Time Spent With Patient Time with patient: 25 - 35 minutes Subjective Date/time seen: 07/17/24 18:25 Interval history: This is a 74-year-old female with a significant past medical history of anemia, rheumatoid arthritis, GERD, COPD, CHF, depression, mitral valve replacement, former smoker who presented to the hospital with bilateral lower extremity and bilateral upper extremity swelling. patient had just left [place] for an outpatient EGD and colonoscopy and was needing help getting to the car due to her swelling. Patient admits to swelling and shortness of breath for to 2 to 3 weeks. She also states that she recently buried her of 50+ years of marriage and has been feeling very fatigued since that time. she states that she has a special education superintendent Dr. Steele at [facility] who did her mitral valve replacement. She does not recall having an echocardiogram done recently. She also has not seen her special education superintendent in over a year. Workup in the hospital included a chest x-ray which showed right lower lobe atelectasis versus pneumonia with pleural effusion, underlying cardiac decompensation and pulmonary edema is not excluded. Previous imaging including a chest / abdomen/ pelvis CT on 11/09/2022 showed a chronic moderate size loculated right pleural effusion at that time. It was again Noted on the 02/18/2024 abdomen/pelvis CT which showed a chronic moderate size loculated right pleural effusion. She states she has a commercial real estate lender over at [facility] who she follows with. Her commercial real estate lender said that the loculated pleural effusion has been there for quite a number of years and will just continue to monitor it at this time. She did not have to get thoracentesis for this. She denies any fever, chills, nausea, vomiting, diarrhea, abdominal pain, chest pain. She does endorse shortness of breath and swelling from her hips down to her ankles. She states that the swelling has impaired her ability to walk without assistance. She states that she follows a relatively heart healthy diet however over the past few months she has been receiving food from a friend. EKG showing sinus rhythm with a rate of 81, QTC 460. Patient was given 40 mg of IV push Lasix while in the ED. She is being admitted to this setting for further diuresis and work up of her CHF. Review of Systems Review of Systems: All systems reviewed & are unremarkable except as noted in HPI and below Constitutional: Constitutional: Reports as per HPI and Reports no additional constitutional complaints Eyes: Eyes: Reports as per HPI and Reports no additional eye complaints ENT: Reports system reviewed and no additional complaints, except as documented and Reports as per HPI Cardiovascular: Cardiovascular: Reports as per HPI and Reports no additional cardiovascular complaints Respiratory: Respiratory: Reports as per HPI and Reports no additional respiratory complaints Gastrointestinal: Gastrointestinal: Reports as per HPI and Reports no additional gastrointestinal complaints Genitourinary: Genitourinary: Reports no additional female genitourinary complaints and Reports as per HPI Musculoskeletal: Musculoskeletal: Reports no additional musculoskeletal complaints and Reports as per HPI Integumentary/Breasts: Skin/Breast: Reports system reviewed and no additional complaints, except as docu and Reports as per HPI Neurologic: Reports system reviewed and no additional complaints, except as documented and Reports as per HPI Psychiatric: Psychiatric: Reports no additional psychiatric complaints and Reports as per HPI Exam Narrative: General: In no acute distress, well nourished Head: atraumatic, no encephalopathy Eyes: EOMI, PERRLA, sclera clear ENT: moist mucous membranes, nasal passages clear Neck: supple, no JVD, no adenopathy, trachea midline Cardiac: Normal S1 and S2. S3 present. No murmur, gallops or friction rubs, peripheral pulses intact. Respiratory: Lungs slightly coarse, no adventitious lung sounds, currently on room air Gastrointestinal: soft, non-distended, non-tender, normoactive bowel sounds. : voiding without difficulty. Extremities: moves all extremities well, extensive edema to both lower extremities-- she is noted to have swelling from her hips down to her ankles Skin: redness noted to left palm of hand and forearm-- history of rheumatoid arthritis Neuro: Alert and oriented x4, cranial nerves intact, no neuro deficits. Psych: tearful at times, interactive Objective Data Vital Signs Vital Signs: Vital Signs - 24 hr 07/17/24 13:05 07/17/24 13:17 07/17/24 14:32 Temperature 98.1 F 97.8 F Pulse Rate 87 76 Respiratory Rate 20 20 Blood Pressure 137/65 134/65 Pulse Oximetry 92 94 Oxygen Delivery Room Air Room Air Room Air 07/17/24 15:05 07/17/24 15:21 Temperature 97.3 F L Pulse Rate 83 Respiratory Rate 20 Blood Pressure 142/52 H Pulse Oximetry 94 94 Oxygen Delivery Room Air Intake/Output Intake/Output: Intake & Output 07/14/24 07/15/24 07/16/24 07/17/24 23:59 23:59 23:59 23:59 Output Total 100 Balance -100 Meds/Results Radiology Results: ITS Impressions Chest X-Ray 07/17/24 13:38 IMPRESSION: Right lower lobe atelectasis versus pneumonia with pleural effusion. Underlying cardiac decompensation and pulmonary edema is not excluded. Labs Labs: Laboratory Results - last 24 hr 07/17/24 13:23 WBC 12.3 H RBC 3.62 L Hgb 9.3 L Hct 31.0 L MCV 85.6 MCH 25.7 L MCHC 30.0 L RDW 21.2 H Plt Count 199 MPV 10.0 Immature Gran % (Auto) 0.5 H Neut % (Auto) 86.2 H Lymph % (Auto) 4.8 L Gooding % (Auto) 8.1 Eos % (Auto) 0.1 L Baso % (Auto) 0.3 Lymph # (Auto) 0.59 L Gooding # (Auto) 1.00 H Eos # (Auto) 0.01 L Baso # (Auto) 0.04 Abs Immat Gran (auto) 0.06 H Absolute Neuts (auto) 10.62 H Absolute Nucleated RBC 0.00 Nucleated RBC % 0.0 PT 13.5 H INR 1.2 APTT 26.8 Sodium 137 Potassium 3.6 Chloride 97 L Carbon Dioxide 31 Anion Gap 9 BUN 21 H Creatinine 1.07 H Estim Creat Clear Calc 49 Estimated GFR 50 L Glucose 120 H Calculated Osmolality 288 Calcium 9.2 Magnesium 2.1 Total Bilirubin 1.7 H AST 11 L ALT 10 L Alkaline Phosphatase 43 L Troponin I 10.5 NT-Pro-B Natriuret Pep 6494 H Total Protein 6.6 Albumin 3.3 L Imaging Radiologist's impression: XR chest 1V portable Ordering provider: Bradley Langley III, DO History: 74 years Female with . SOB X months, valve placement X 8 yrs ago . Comparison: April 21, 2024 FINDINGS: MEDIASTINUM: The cardiac silhouette is not enlarged. Postoperative changes in the mediastinum. Congestive vipul. LUNGS: No pneumothorax. Opacification in the right lower lobe with pleural effusion. Bilateral interstitial changes. OTHER: No free air under the diaphragm. IMPRESSION: Right lower lobe atelectasis versus pneumonia with pleural effusion. Underlying cardiac decompensation and pulmonary edema is not excluded. Reviewed, dictated and finalized at location A. MUNITION STORAGE SUPERINTENDENT Quality VTE Prophylaxis VTE prophylaxis: pharmacologic ordered Hospitalist [facility] Advance Care Plan I have confirmed that the patient's Advanced Care Plan is present, code status is documented, or surrogate decision maker is listed in patient medical record.: Yes Medication Reconciliation I have utilized all available resources to obtain, update and review the patients current medications (includes all prescriptions, OTC, herbals, cannabis, and nutritional supplements).: Yes
[2024-07-17 20:00] VITALS: BP 144/62; PULSE 84; RESP 18; TEMP 36.6; O2SAT 95
[2024-07-17 21:45] LABS: Troponin I 10.9 ng/L (0.00-60.4)
[2024-07-17 21:55] LABS: Thyroid Stimulating Hormone Reflex 1.81 u/IU/mL (0.36-3.74)
[2024-07-17 22:08] LABS: CRP 10.7 mg/dL (0.0-0.9); Ferritin 191 ng/mL (8-252); Folic Acid 18.6 ng/mL (8.6->20); Iron 16 ug/dL (50-170); Percent Iron Saturation 6 % (12-57); Vitamin B12 1396 pg/mL (193-986)
[2024-07-17 22:16] LABS: Erythrocyte Sedimentation Rate 33 mm/hr (0-20)
[2024-07-18] VITALS (7 sets, daily range): BP systolic 124–156; BP diastolic 53–75; PULSE 64–82; RESP 16–20; TEMP 36.1–36.9; O2SAT 91–94
[2024-07-18] MEDS: ACETAMINOPHEN 325 MG TABLET 650 MG PO ×3 (00:37→20:25)
[2024-07-18 00:55] LABS: Troponin I 11.4 ng/L (0.00-60.4)
[2024-07-18 05:08] LABS: Basophils Absolute Auto 0.04 K/mm3 (0.00-0.10); Basophils Percent Auto 0.5 % (0.0-1.0); Eosinophils Absolute Auto 0.09 K/mm3 (0.02-0.50); Eosinophils Percent Auto 1.1 % (1.0-6.0); Hematocrit 28.5 % (35.0-42.0); Hemoglobin 8.4 g/dL (11.7-13.8); Immature Granulocyte Absolute 0.04 K/mm3 (0.00-0.00); Immature Granulocyte Percent A 0.5 % (0.0-0.0); Lymphocytes Absolute Auto 0.62 K/mm3 (1.10-4.50); Lymphocytes Percent Auto 7.8 % (18.0-42.0); Mean Corpuscular HGB Conc 29.5 g/dL (32-36); Mean Corpuscular Hemoglobin 25.5 pg (27.0-31.0); Mean Corpuscular Volume 86.4 fL (78.0-102.0); Monocytes Absolute Auto 0.92 K/mm3 (0.10-0.90); Monocytes Percent Auto 11.6 % (2.0-11.0); Neutrophils Percent Auto 78.5 % (50.0-70.0); Platelet Count Result 167 K/mm3 (150-420); Red Cell Distribution Width 21.1 % (11.6-14.4); White Blood Count 7.9 K/mm3 (4.8-10.8)
[2024-07-18 05:30] LABS: Alanine Aminotransferase 9 U/L (14-59); Albumin Level 2.9 g/dL (3.4-5.0); Alkaline Phosphatase 39 U/L (46-116); Anion Gap 6 mmol/L (4-12); Aspartate Amino Transferase < 10 U/L (15-37); Bilirubin,Total 1.7 mg/dL (0.00-1.00); Blood Urea Nitrogen 23 mg/dL (7-18); Calcium 8.9 mg/dL (8.5-10.1); Carbon Dioxide 34 mmol/L (21-32); Chloride 98 mmol/L (98-108); Estimated CRCL calculation 46 ml/min; Estimated Glomerular Filt Rate 45; Glucose 102 mg/dL (70-99); Osmolality Calculated 289 mOsm/kg (285-295); Potassium 3.1 mmol/L (3.5-5.1); Sodium 138 mmol/L (136-145); Total Protein 5.8 g/dL (6.4-8.2)
[2024-07-18 05:31] LABS: Troponin I 11.7 ng/L (0.00-60.4)
[2024-07-18] MEDS: ENOXAPARIN 40 MG/0.4 ML SYRINGE SUB-Q (09:00)
[2024-07-18] MEDS: FOLIC ACID 1 MG TABLET PO (09:00)
[2024-07-18] MEDS: SPIRONOLACTONE 25 MG TABLET PO (09:00)
[2024-07-18] MEDS: FUROSEMIDE INJ 40 MG/4 ML VIAL IV PUSH ×2 (09:00→17:11)
[2024-07-18] MEDS: PANTOPRAZOLE 40 MG TABLET PO (09:01)
[2024-07-18] MEDS: DICYCLOMINE HCL 10 MG CAPSULE 20 MG PO (09:01)
[2024-07-18] MEDS: DULoxetine HCL 20 MG CAPSULE.DR PO (09:02)
--- NOTE | 2024-07-18 12:48 | P.PNIM_ITS ---
Progress Note: A&P Assessment and Plan (1) Acute exacerbation of chronic heart failure: Code(s): I50.9 - Heart failure, unspecified Status: Acute Assessment and Plan: patient presented with bilateral lower extremity edema from the hips down to the ankle, reporting shortness of breath with exertion * chest x-ray showing right lower lobe atelectasis versus pneumonia with pleural effusion, underlying cardiac decompensation and pulmonary edema is not excluded * pleural effusion appears to be chronic after review of EMR, she is noted to have a loculated right pleural effusion which is moderate. she is followed by a biodiesel production technician over at [facility] and has not received thoracentesis for this considering it is been there for years. * Continue diuresis with IV Lasix b.i.d. * will obtain an echo considering the significance of her swelling-- concerns for takotsubo cardiomyopathy versus worsening congestive heart failure. Patient recently buried her back in April of this year and has been feeling fatigued and worn down since that time. * Continue heart healthy diet * fluid restriction 1500 mL per day * continue spironolactone * continue to trend troponin, troponin on admission was 10.5 * proBNP 6494 * patient sees Dr. Steele over at [facility] who did her mitral valve replacement however she has not seen him in over a year and can not remember the last time she had an echocardiogram. There is no echocardiogram for review in our EMR. 07/18 * Awaiting echo * Continue diuresis with Lasix 40 mg BID * continue fluid restriction * continue spironolactone * troponin negative x4 (2) GERD (gastroesophageal reflux disease): Code(s): K21.9 - Gastro-esophageal reflux disease without esophagitis Status: Acute Assessment and Plan: * continue Protonix (3) Anemia: Code(s): D64.9 - Anemia, unspecified Status: Acute Assessment and Plan: * hemoglobin 9.3-- appears to be ongoing since February of this year * will check vitamin B12, folic acid, ferritin, iron, TSH 07/18 * TSH 1.81, folate 18.6, vitamin B12 1396, iron 16, ferritin 191 * will give Venofer 500 mg x1 now * will start ferrous sulfate 325 mg b.i.d. (4) Rheumatoid arthritis: Code(s): M06.9 - Rheumatoid arthritis, unspecified Status: Acute Assessment and Plan: * Currently on methotrexate however this is currently on hold due to it not being formulary-- however she only takes this weekly * she is followed by target developer at [facility] in [facility], Dr. Khan * patient has redness to her left hand and down her left forearm which is warm to the touch and tender to touch. she states that she often gets flare-ups in both hands * she is currently getting infusions at [facility] once a month. She is due for her next infusion this * will check ESR and CRP 07/18 * ESR 33, CRP 10.7 (5) Mitral valve replaced: Code(s): Z95.2 - Presence of prosthetic heart valve Status: Acute Assessment and Plan: * [address] Steele at [facility] (6) Depression: Code(s): F32.9 - Major depressive disorder, single episode, unspecified Status: Acute Assessment and Plan: * continue Cymbalta * recently buried her back in April of last year Subjective Date/time seen: 07/18/24 12:48 Interval history: Interval history: This is a 74-year-old female with a significant past medical history of anemia, rheumatoid arthritis, GERD, COPD, CHF, depression, mitral valve replacement, former smoker who presented to the hospital with bilateral lower extremity and bilateral upper extremity swelling. patient had just left [place] for an outpatient EGD and colonoscopy and was needing help getting to the car due to her swelling. Patient admits to swelling and shortness of breath for to 2 to 3 weeks. She also states that she recently buried her of 50+ years of marriage and has been feeling very fatigued since that time. she states that she has a glass technician Dr. Steele at [facility] who did her mitral valve replacement. She does not recall having an echocardiogram done recently. She also has not seen her glass technician in over a year. Workup in the hospital included a chest x-ray which showed right lower lobe atelectasis versus pneumonia with pleural effusion, underlying cardiac decompensation and pulmonary edema is not excluded. Previous imaging including a chest / abdomen/ pelvis CT on 11/09/2022 showed a chronic moderate size loculated right pleural effusion at that time. It was again Noted on the 02/18/2024 abdomen/pelvis CT which showed a chronic moderate size loculated right pleural effusion. She states she has a biodiesel production technician over at [facility] who she follows with. Her biodiesel production technician said that the loculated pleural effusion has been there for quite a number of years and will just continue to monitor it at this time. She did not have to get thoracentesis for this. She denies any fever, chills, nausea, vomiting, diarrhea, abdominal pain, chest pain. She does endorse shortness of breath and swelling from her hips down to her ankles. She states that the swelling has impaired her ability to walk without assistance. She states that she follows a relatively heart healthy diet however over the past few months she has been receiving food from a friend. EKG showing sinus rhythm with a rate of 81, QTC 460. Patient was given 40 mg of IV push Lasix while in the ED. She is being admitted to this setting for further diuresis and work up of her CHF. Subjective: patient denies any new complaints today. She has friends at the bedside. Labs reviewed. Review of Systems Review of Systems: All systems reviewed & are unremarkable except as noted in HPI and below Constitutional: Constitutional: Reports as per HPI and Reports no additional constitutional complaints Eyes: Eyes: Reports as per HPI and Reports no additional eye complaints ENT: Reports system reviewed and no additional complaints, except as documented and Reports as per HPI Cardiovascular: Cardiovascular: Reports as per HPI and Reports no additional cardiovascular complaints Respiratory: Respiratory: Reports as per HPI and Reports no additional respiratory complaints Gastrointestinal: Gastrointestinal: Reports as per HPI and Reports no additional gastrointestinal complaints Genitourinary: Genitourinary: Reports no additional female genitourinary complaints and Reports as per HPI Musculoskeletal: Musculoskeletal: Reports no additional musculoskeletal complaints and Reports as per HPI Integumentary/Breasts: Skin/Breast: Reports system reviewed and no additional complaints, except as docu and Reports as per HPI Neurologic: Reports system reviewed and no additional complaints, except as documented and Reports as per HPI Psychiatric: Psychiatric: Reports no additional psychiatric complaints and Reports as per HPI Exam Narrative: General: In no acute distress, well nourished Cardiac: Normal S1 and S2. S3 present. No murmur, gallops or friction rubs, peripheral pulses intact. Respiratory: Lungs slightly coarse, diminished in the bases , no adventitious lung sounds, currently on room air Gastrointestinal: soft, non-distended, non-tender, normoactive bowel sounds. : voiding without difficulty. Extremities: moves all extremities well, extensive edema to both lower extremities-- she is noted to have swelling from her hips down to her ankles Skin: redness noted to left palm of hand and forearm-- history of rheumatoid arthritis Neuro: Alert and oriented x4 Objective Data Vital Signs Vital Signs: Vital Signs - 24 hr 07/17/24 13:05 07/17/24 13:17 07/17/24 14:32 Temperature 98.1 F 97.8 F Pulse Rate 87 76 Respiratory Rate 20 20 Blood Pressure 137/65 134/65 Pulse Oximetry 92 94 Oxygen Delivery Room Air Room Air Room Air 07/17/24 15:05 07/17/24 15:21 07/17/24 20:00 Temperature 97.3 F L 98 F Pulse Rate 83 84 Respiratory Rate 20 18 Blood Pressure 142/52 H 144/62 H Pulse Oximetry 94 94 95 Oxygen Delivery Room Air Room Air 07/18/24 00:00 07/18/24 00:00 07/18/24 04:00 Temperature 98.4 F Pulse Rate 80 77 70 Respiratory Rate 18 Blood Pressure 124/53 L Pulse Oximetry 93 Oxygen Delivery Room Air 07/18/24 04:00 07/18/24 08:00 07/18/24 08:00 Temperature 98.5 F 97.8 F Pulse Rate 70 64 76 Respiratory Rate 16 18 Blood Pressure 144/74 H 128/74 Pulse Oximetry 94 93 Oxygen Delivery Room Air Room Air Intake/Output Intake/Output: Intake & Output 07/15/24 07/16/24 07/17/24 07/18/24 23:59 23:59 23:59 23:59 Intake Total 320 900 Output Total 100 500 Balance 220 400 Meds/Results Medications: Active Medications Generic Name Dose Route Start Last Admin Trade Name Freq PRN Reason Stop Dose Admin Acetaminophen 650 mg 07/17/24 19:25 07/18/24 00:37 Acetaminophen 325 Mg Tablet PO 650 mg Q4H PRN Administration Mild Pain (1-3) or Fever Albuterol 2 puff 07/17/24 19:27 Albuterol Sulfate (*Sp) Inhaler INHALATION Q4-6H PRN shortness of breath or wheezing Dicyclomine HCl 20 mg 07/18/24 09:00 07/18/24 09:01 Dicyclomine Hcl 10 Mg Capsule PO 20 mg DAILY LUCHO Administration Duloxetine HCl 20 mg 07/18/24 09:00 07/18/24 09:02 Duloxetine Hcl 20 Mg Capsule.Dr PO 20 mg DAILY LUCHO Administration Enoxaparin Sodium 40 mg 07/18/24 09:00 07/18/24 09:00 Enoxaparin 40 Mg/0.4 Ml Syringe SUB-Q 40 mg DAILY LUCHO Administration Folic Acid 1 mg 07/18/24 09:00 07/18/24 09:00 Folic Acid 1 Mg Tablet PO 1 mg DAILY LUCHO Administration Furosemide 40 mg 07/17/24 19:25 07/18/24 09:00 Furosemide Inj 40 Mg/4 Ml Vial IV PUSH 40 mg BID LUCHO Administration Ondansetron HCl 4 mg 07/17/24 19:25 Ondansetron Inj 4 Mg/2 Ml Vial IV PUSH Q6H PRN Nausea And Vomiting Pantoprazole Sodium 40 mg 07/18/24 09:00 07/18/24 09:01 Pantoprazole 40 Mg Tablet PO 40 mg DAILY LUCHO Administration Perflutren Lipid Microsphere 0 ml 07/17/24 19:25 Perflutren Lipid Microspheres 1.5 Ml Vial Diluted To 10 Ml Total Volume IV PUSH 07/20/24 19:27 ONCE PRN adequate visualization Protocol Spironolactone 25 mg 07/18/24 09:00 07/18/24 09:00 Spironolactone 25 Mg Tablet PO 25 mg DAILY LUCHO Administration Radiology Results: ITS Impressions Chest X-Ray 07/17/24 13:38 IMPRESSION: Right lower lobe atelectasis versus pneumonia with pleural effusion. Underlying cardiac decompensation and pulmonary edema is not excluded. Labs Labs: Laboratory Results - last 24 hr 07/17/24 07/17/24 07/18/24 13:23 21:08 00:25 WBC 12.3 H RBC 3.62 L Hgb 9.3 L Hct 31.0 L MCV 85.6 MCH 25.7 L MCHC 30.0 L RDW 21.2 H Plt Count 199 MPV 10.0 Immature Gran % (Auto) 0.5 H Neut % (Auto) 86.2 H Lymph % (Auto) 4.8 L [place] % (Auto) 8.1 Eos % (Auto) 0.1 L Baso % (Auto) 0.3 Lymph # (Auto) 0.59 L [place] # (Auto) 1.00 H Eos # (Auto) 0.01 L Baso # (Auto) 0.04 Abs Immat Gran (auto) 0.06 H Absolute Neuts (auto) 10.62 H Absolute Nucleated RBC 0.00 Nucleated RBC % 0.0 ESR 33 H PT 13.5 H INR 1.2 APTT 26.8 Sodium 137 Potassium 3.6 Chloride 97 L Carbon Dioxide 31 Anion Gap 9 BUN 21 H Creatinine 1.07 H Estim Creat Clear Calc 49 Estimated GFR 50 L Glucose 120 H Calculated Osmolality 288 Calcium 9.2 Magnesium 2.1 Iron 16 L TIBC 286 % Saturation 6 L Ferritin 191 Total Bilirubin 1.7 H AST 11 L ALT 10 L Alkaline Phosphatase 43 L Troponin I 10.5 10.9 11.4 C-Reactive Protein 10.7 H NT-Pro-B Natriuret Pep 6494 H Total Protein 6.6 Albumin 3.3 L Vitamin B12 1396 H Folate 18.6 TSH (Reflex) 1.81 07/18/24 04:29 WBC 7.9 RBC 3.30 L Hgb 8.4 L Hct 28.5 L MCV 86.4 MCH 25.5 L MCHC 29.5 L RDW 21.1 H Plt Count 167 MPV 10.0 Immature Gran % (Auto) 0.5 H Neut % (Auto) 78.5 H Lymph % (Auto) 7.8 L [place] % (Auto) 11.6 H Eos % (Auto) 1.1 Baso % (Auto) 0.5 Lymph # (Auto) 0.62 L [place] # (Auto) 0.92 H Eos # (Auto) 0.09 Baso # (Auto) 0.04 Abs Immat Gran (auto) 0.04 H Absolute Neuts (auto) 6.20 Absolute Nucleated RBC 0.00 Nucleated RBC % 0.0 ESR PT INR APTT Sodium 138 Potassium 3.1 L Chloride 98 Carbon Dioxide 34 H Anion Gap 6 BUN 23 H Creatinine 1.18 H Estim Creat Clear Calc 46 Estimated GFR 45 L Glucose 102 H Calculated Osmolality 289 Calcium 8.9 Magnesium Iron TIBC % Saturation Ferritin Total Bilirubin 1.7 H AST < 10 L ALT 9 L Alkaline Phosphatase 39 L Troponin I 11.7 C-Reactive Protein NT-Pro-B Natriuret Pep Total Protein 5.8 L Albumin 2.9 L Vitamin B12 Folate TSH (Reflex) Quality VTE Prophylaxis VTE prophylaxis: pharmacologic ordered
[2024-07-18] MEDS: IRON SUCROSE COMPLEX 400 MG, IRON SUCROSE COMPLEX 100 MG in SODIUM CHLORIDE 0.9% IV 250 ML 78.57 MG IVPB (13:37)
--- NOTE | 2024-07-18 14:29 | PC.NURSE ---
remains to have rere edema to rere lower legs. 2+
--- NOTE | 2024-07-18 15:11 | PC.NURSE ---
1510 patient transfered to inpatient status. 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
[2024-07-18] MEDS: FERROUS SULFATE 325 MG TABLET DR PO (17:11)
[2024-07-19] VITALS (7 sets, daily range): BP systolic 118–131; BP diastolic 47–61; PULSE 68–74; RESP 14–20; TEMP 36–36.6; O2SAT 91–94
--- NOTE | 2024-07-19 02:23 | PC.NURSE ---
Pt asleep and no signs of discomfort noted.
--- NOTE | 2024-07-19 04:30 | PC.NURSE ---
Pt up to the bathroom with the walker, gait belt and assist of one. pt voide 250 ml of very dark, brown urine. Pt back to bed with the walker, gait belt and assist of one.
[2024-07-19 05:33] LABS: Basophils Absolute Auto 0.07 K/mm3 (0.00-0.10); Basophils Percent Auto 1.1 % (0.0-1.0); Eosinophils Absolute Auto 0.22 K/mm3 (0.02-0.50); Eosinophils Percent Auto 3.4 % (1.0-6.0); Hematocrit 29.7 % (35.0-42.0); Hemoglobin 8.7 g/dL (11.7-13.8); Immature Granulocyte Absolute 0.03 K/mm3 (0.00-0.00); Immature Granulocyte Percent A 0.5 % (0.0-0.0); Lymphocytes Absolute Auto 0.48 K/mm3 (1.10-4.50); Lymphocytes Percent Auto 7.4 % (18.0-42.0); Mean Corpuscular HGB Conc 29.3 g/dL (32-36); Mean Corpuscular Hemoglobin 25.3 pg (27.0-31.0); Mean Corpuscular Volume 86.3 fL (78.0-102.0); Mean Platelet Volume 9.9 fl (9.2-11.8); Monocytes Percent Auto 10.7 % (2.0-11.0); Neutrophils Absolute Auto 5.02 K/mm3 (1.70-7.20); Neutrophils Percent Auto 76.9 % (50.0-70.0); Platelet Count Result 183 K/mm3 (150-420); Red Blood Count 3.44 M/mm3 (4.20-5.40); Red Cell Distribution Width 20.9 % (11.6-14.4); White Blood Count 6.5 K/mm3 (4.8-10.8)
[2024-07-19 05:52] LABS: Alanine Aminotransferase 16 U/L (14-59); Albumin Level 2.9 g/dL (3.4-5.0); Alkaline Phosphatase 39 U/L (46-116); Anion Gap 9 mmol/L (4-12); Aspartate Amino Transferase 11 U/L (15-37); Blood Urea Nitrogen 28 mg/dL (7-18); Calcium 8.9 mg/dL (8.5-10.1); Carbon Dioxide 31 mmol/L (21-32); Chloride 98 mmol/L (98-108); Estimated CRCL calculation 44 ml/min; Estimated Glomerular Filt Rate 42; Glucose 110 mg/dL (70-99); Osmolality Calculated 292 mOsm/kg (285-295); Potassium 3.1 mmol/L (3.5-5.1); Sodium 138 mmol/L (136-145); Total Protein 6.1 g/dL (6.4-8.2)
[2024-07-19] MEDS: DICYCLOMINE HCL 10 MG CAPSULE 20 MG PO (09:34)
[2024-07-19] MEDS: ENOXAPARIN 40 MG/0.4 ML SYRINGE SUB-Q (09:34)
[2024-07-19] MEDS: SPIRONOLACTONE 25 MG TABLET PO (09:34)
[2024-07-19] MEDS: PANTOPRAZOLE 40 MG TABLET PO (09:34)
[2024-07-19] MEDS: FUROSEMIDE INJ 40 MG/4 ML VIAL IV PUSH ×2 (09:34→17:03)
[2024-07-19] MEDS: FOLIC ACID 1 MG TABLET PO (09:35)
[2024-07-19] MEDS: FERROUS SULFATE 325 MG TABLET DR PO ×2 (09:35→17:04)
[2024-07-19] MEDS: DULoxetine HCL 20 MG CAPSULE.DR PO (09:35)
--- NOTE | 2024-07-19 14:08 | P.PNIM_ITS ---
Progress Note: A&P Assessment and Plan (1) Acute exacerbation of chronic heart failure: Code(s): I50.9 - Heart failure, unspecified Status: Acute Assessment and Plan: patient presented with bilateral lower extremity edema from the hips down to the ankle, reporting shortness of breath with exertion * chest x-ray showing right lower lobe atelectasis versus pneumonia with pleural effusion, underlying cardiac decompensation and pulmonary edema is not excluded * pleural effusion appears to be chronic after review of EMR, she is noted to have a loculated right pleural effusion which is moderate. she is followed by a venue manager over at [facility] and has not received thoracentesis for this considering it is been there for years. * Continue diuresis with IV Lasix b.i.d. * will obtain an echo considering the significance of her swelling-- concerns for takotsubo cardiomyopathy versus worsening congestive heart failure. Patient recently buried her back in April of this year and has been feeling fatigued and worn down since that time. * Continue heart healthy diet * fluid restriction 1500 mL per day * continue spironolactone * continue to trend troponin, troponin on admission was 10.5 * proBNP 6494 * patient sees Dr. Steele over at [facility] who did her mitral valve replacement however she has not seen him in over a year and can not remember the last time she had an echocardiogram. There is no echocardiogram for review in our EMR. 07/18 * Awaiting echo * Continue diuresis with Lasix 40 mg BID * continue fluid restriction * continue spironolactone * troponin negative x4 07/19/2024: * Appears euvolemic * will transition back to her oral Lasix in the a.m. * Echo 07/20 pending (2) GERD (gastroesophageal reflux disease): Code(s): K21.9 - Gastro-esophageal reflux disease without esophagitis Status: Acute Assessment and Plan: * continue Protonix (3) Anemia: Code(s): D64.9 - Anemia, unspecified Status: Acute Assessment and Plan: * hemoglobin 9.3-- appears to be ongoing since February of this year * will check vitamin B12, folic acid, ferritin, iron, TSH 07/18 * TSH 1.81, folate 18.6, vitamin B12 1396, iron 16, ferritin 191 * will give Venofer 500 mg x1 now * will start ferrous sulfate 325 mg b.i.d. STABLE (4) Rheumatoid arthritis: Code(s): M06.9 - Rheumatoid arthritis, unspecified Status: Acute Assessment and Plan: * Currently on methotrexate however this is currently on hold due to it not being formulary-- however she only takes this weekly * she is followed by assembler insulator at [facility] in [facility], Dr. Khan * patient has redness to her left hand and down her left forearm which is warm to the touch and tender to touch. she states that she often gets flare-ups in both hands * she is currently getting infusions at [facility] once a month. She is due for her next infusion this * will check ESR and CRP 07/18 * ESR 33, CRP 10.7 07/19 * methotrexate given today * unable to do patient's Orencia infusion we will need to reschedule outpatient (5) Mitral valve replaced: Code(s): Z95.2 - Presence of prosthetic heart valve Status: Acute Assessment and Plan: * [address] Steele at [facility] (6) Depression: Code(s): F32.9 - Major depressive disorder, single episode, unspecified Status: Acute Assessment and Plan: * continue Mihir * recently buried her back in April of last year Plan Code status: Full code per patient DVT prophylaxis: Lovenox Stress ulcer prophylaxis: Protonix 40 daily PT/OT notes: swing bed Disposition: patient continues admission CHF exacerbation but also needs to be ruled out for cardiomyopathy pending echocardiogram which will be completed tomorrow. Patient with generalized weakness worsening and unable to care for self at home plan is discharge to swing bed and placed to assisted living. Time Spent With Patient Time with patient: 15 - 25 minutes Subjective Date/time seen: 07/19/24 14:08 Interval history: Patient is a 74-year-old female who was admitted to the medical unit for further evaluation and treatment CHF exacerbation. Patient is also set to transitioned to [facility] swing bed for rehabilitation then to an assisted living facility reports she is unable to care for herself anymore on her own. 07/19/2024: Assumed Care Patient with no new complaints today, edema improving to bilateral lower extremities and SOB with exertion improving, echo scheduled for the morning 1 more midnight patient will transitioned to swing bed for rehabilitation Review of Systems Review of Systems: All systems reviewed & are unremarkable except as noted in HPI and below Exam Narrative: General: In no acute distress, well nourished Cardiac: Normal S1 and S2. S3 present. No murmur, gallops or friction rubs, peripheral pulses intact. Respiratory: Lungs slightly coarse, diminished in the bases , no adventitious lung sounds, currently on room air Gastrointestinal: soft, non-distended, non-tender, normoactive bowel sounds. : voiding without difficulty. Extremities: moves all extremities well, extensive edema to both lower extremities-- she is noted to have swelling from her hips down to her ankles Skin: redness noted to left palm of hand and forearm-- history of rheumatoid arthritis Neuro: Alert and oriented x4 Objective Data Vital Signs Vital Signs: Vital Signs - 24 hr 07/18/24 16:00 07/18/24 16:00 07/18/24 19:54 Temperature 97.3 F L Pulse Rate 72 72 72 Respiratory Rate 18 Blood Pressure 141/56 H Pulse Oximetry 92 Oxygen Delivery Room Air 07/18/24 20:00 07/19/24 00:00 07/19/24 00:00 Temperature 97.1 F L 97.7 F Pulse Rate 82 70 70 Respiratory Rate 20 20 Blood Pressure 156/75 H 118/47 L Pulse Oximetry 91 93 Oxygen Delivery Room Air Room Air 07/19/24 04:00 07/19/24 04:00 07/19/24 08:00 Temperature 96.8 F L 97.8 F Pulse Rate 70 70 68 Respiratory Rate 20 14 Blood Pressure 131/61 118/56 L Pulse Oximetry 91 91 Oxygen Delivery Room Air Room Air 07/19/24 08:00 Temperature Pulse Rate 69 Respiratory Rate Blood Pressure Pulse Oximetry Oxygen Delivery Intake/Output Intake/Output: Intake & Output 07/16/24 07/17/24 07/18/24 07/19/24 23:59 23:59 23:59 23:59 Intake Total 320 1645 300 Output Total 100 950 250 Balance 220 695 50 Meds/Results Medications: Active Medications Generic Name Dose Route Start Last Admin Trade Name Freq PRN Reason Stop Dose Admin Acetaminophen 650 mg 07/17/24 19:25 07/18/24 20:25 Acetaminophen 325 Mg Tablet PO 650 mg Q4H PRN Administration Mild Pain (1-3) or Fever Albuterol 2 puff 07/17/24 19:27 Albuterol Sulfate (*Sp) Inhaler INHALATION Q4-6H PRN shortness of breath or wheezing Dicyclomine HCl 20 mg 07/18/24 09:00 07/19/24 09:34 Dicyclomine Hcl 10 Mg Capsule PO 20 mg DAILY LUCHO Administration Duloxetine HCl 20 mg 07/18/24 09:00 07/19/24 09:35 Duloxetine Hcl 20 Mg Capsule.Dr PO 20 mg DAILY LUCHO Administration Enoxaparin Sodium 40 mg 07/18/24 09:00 07/19/24 09:34 Enoxaparin 40 Mg/0.4 Ml Syringe SUB-Q 40 mg DAILY LUCHO Administration Ferrous Sulfate 325 mg 07/18/24 17:00 07/19/24 09:35 Ferrous Sulfate [address] PO 325 mg BID LUCHO Administration Folic Acid 1 mg 07/18/24 09:00 07/19/24 09:35 Folic Acid 1 Mg Tablet PO 1 mg DAILY LUCHO Administration Furosemide 40 mg 07/17/24 19:25 07/19/24 09:34 Furosemide Inj 40 Mg/4 Ml Vial IV PUSH 40 mg BID LUCHO Administration Methotrexate 2.5 mg 07/26/24 09:00 Methotrexate 2.5 Mg Tab (*Chemo) PO WEEKLY LUCHO Ondansetron HCl 4 mg 07/17/24 19:25 Ondansetron Inj 4 Mg/2 Ml Vial IV PUSH Q6H PRN Nausea And Vomiting Pantoprazole Sodium 40 mg 07/18/24 09:00 07/19/24 09:34 Pantoprazole 40 Mg Tablet PO 40 mg DAILY LUCHO Administration Perflutren Lipid Microsphere 0 ml 07/17/24 19:25 Perflutren Lipid Microspheres 1.5 Ml Vial Diluted To 10 Ml Total Volume IV PUSH 07/20/24 19:27 ONCE PRN adequate visualization Protocol Spironolactone 25 mg 07/18/24 09:00 07/19/24 09:34 Spironolactone 25 Mg Tablet PO 25 mg DAILY LUCHO Administration Radiology Results: ITS Impressions Chest X-Ray 07/17/24 13:38 IMPRESSION: Right lower lobe atelectasis versus pneumonia with pleural effusion. Underlying cardiac decompensation and pulmonary edema is not excluded. Labs Labs: Laboratory Results - last 24 hr 07/19/24 05:23 WBC 6.5 RBC 3.44 L Hgb 8.7 L Hct 29.7 L MCV 86.3 MCH 25.3 L MCHC 29.3 L RDW 20.9 H Plt Count 183 MPV 9.9 Immature Gran % (Auto) 0.5 H Neut % (Auto) 76.9 H Lymph % (Auto) 7.4 L Yell % (Auto) 10.7 Eos % (Auto) 3.4 Baso % (Auto) 1.1 H Lymph # (Auto) 0.48 L Yell # (Auto) 0.70 Eos # (Auto) 0.22 Baso # (Auto) 0.07 Abs Immat Gran (auto) 0.03 H Absolute Neuts (auto) 5.02 Absolute Nucleated RBC 0.00 Nucleated RBC % 0.0 Sodium 138 Potassium 3.1 L Chloride 98 Carbon Dioxide 31 Anion Gap 9 BUN 28 H Creatinine 1.24 H Estim Creat Clear Calc 44 Estimated GFR 42 L Glucose 110 H Calculated Osmolality 292 Calcium 8.9 Total Bilirubin 1.0 AST 11 L ALT 16 Alkaline Phosphatase 39 L Total Protein 6.1 L Albumin 2.9 L Quality VTE Prophylaxis VTE prophylaxis: pharmacologic ordered -Patient's previous records reviewed on admission -ER notes reviewed in detail on admission -discussed all findings and current treatment plan with patient/Family/POA -Consultations reviewed for recommendations -Patient's disposition for safe discharge discussed with case management rn Dictation performed by [employer] direct speech recognition software, the refore data collection associate variants and typographical errors may occur. Hospitalist MIPS Advance Care Plan I have confirmed that the patient's Advanced Care Plan is present, code status is documented, or surrogate decision maker is listed in patient medical record.: Yes Medication Reconciliation I have utilized all available resources to obtain, update and review the patients current medications (includes all prescriptions, OTC, herbals, cannabis, and nutritional supplements).: Yes The patient is not eligible for med reconciliation; the patient is in a emergent medical situation where delaying treatment would jeopardize the patients health.: No
--- NOTE | 2024-07-19 15:30 | ECHO_ITS ---
Patient Info Name: Ariadne Okeefe Age: 74 years : 1950 Gender: Female Ht: 68 in Wt: 202 lbs BSA: 2.12 m2 HR: 69 bpm BP: 118 / 56 mmHg Heart Rhythm: Sinus Rhythm Technical Quality: Good Exam Date: 07/19/2024 3:44 PM Exam Location: Echo Lab Exam Room: [facility]– [place] Patient Status: Inpatient Admit Date: 07/18/2024 Staff Ordering Physician: Latonia Khan APRN Alliances Consultant: Nancy Brody RDCS Attending Provider: Kaelyn Lucero APRN Referring Physician: Erin SOTELO; Exam Type: CA echo doppler color flow Study Info Complete two-dimensional, color flow and Doppler transthoracic echocardiogram is performed. Summary 1. Complete two-dimensional, color flow and Doppler transthoracic echocardiogram is performed. 2. Left ventricular chamber dimension is normal. 3. Left ventricular systolic function is normal, estimated at 55-60%. 4. Left ventricular septal wall motion is abnormal with septal motion related to bundle branch block. 5. The left ventricular diastolic function is grade III diastolic dysfunction. 6. E/e' 36 is significantly elevated. 7. Right ventricular chamber dimension is moderately enlarged. 8. Right ventricular systolic function is mildly reduced and with abnormal TAPSE 1.2 cm. 9. Left atrial chamber dimension is moderately enlarged. 10. Right atrial chamber dimension is mildly enlarged. 11. Bioprosthetic mitral valve. 12. There is mild stenosis of the bioprosthetic mitral valve with mean gradient of 8 mmHg. 13. There is moderate to severe tricuspid valve regurgitation. 14. Severe pulmonary hypertension, estimated pulmonary arterial systolic pressure is 70 mmHg. 15. There is trace pulmonic regurgitation. 16. Normal inferior vena cava with <50% collapse upon inspiration consistent with elevated right atrial pressure, 10 mmHg. Left Ventricle E/e' 36 is significantly elevated. Left ventricular chamber dimension is normal. Left ventricular systolic function is normal, estimated at 55-60%. Left ventricular septal wall motion is abnormal with septal motion related to bundle branch block. The left ventricular diastolic function is grade III diastolic dysfunction. Right Ventricle Right ventricular systolic function is mildly reduced and with abnormal TAPSE 1.2 cm. Right ventricular chamber dimension is moderately enlarged. Left Atria Left atrial chamber dimension is moderately enlarged. Right Atria Right atrial chamber dimension is mildly enlarged. Aortic Valve The aortic valve is trileaflet. There is no aortic valve stenosis. There is no aortic valve regurgitation. Pulmonic Valve There is trace pulmonic regurgitation. Mitral Valve There is mild stenosis of the bioprosthetic mitral valve with mean gradient of 8 mmHg. Bioprosthetic mitral valve. There is no regurgitation of the bioprosthetic mitral valve. Tricuspid Valve There is moderate to severe tricuspid valve regurgitation. Severe pulmonary hypertension, estimated pulmonary arterial systolic pressure is 70 mmHg. Pericardium/Pleural There is no pericardial effusion. Inferior Vena Cava Normal inferior vena cava with <50% collapse upon inspiration consistent with elevated right atrial pressure, 10 mmHg. Aorta The aortic root size at the sinus of Valsalva is normal. Left Ventricular Outflow Tract Name Value Normal LVOT 2D LVOT Diameter 1.8 cm LVOT Doppler LVOT Peak Velocity 80 cm/s LVOT Peak Gradient 3 mmHg LVOT Mean Gradient 2 mmHg LVOT VTI 18 cm LVOT VTI/AV VTI Ratio 0.6 LVOT Stroke Volume 46 ml Pulmonic Valve Name Value Normal PV Doppler PV Peak Velocity 72 cm/s PV Peak Gradient 2 mmHg PV Regurgitation Doppler CO Peak End Diastolic Velocity 164 cm/s Mitral Valve Name Value Normal MV Doppler MV Peak Gradient 21 mmHg MV Mean Gradient 8 mmHg MV Decel [place] 601 cm/s2 MV PHT 110 ms MV Area (PHT) 2.0 cm2 4.0-5.0 MV Area (Cont Eq VTI) 0.5 cm2 MV Diastolic Function MV E Peak Velocity 228 cm/s MV A Peak Velocity 104 cm/s MV E/A 2.2 MV Decel Time 379 ms Tricuspid Valve Name Value Normal TV Regurgitation Doppler TR Peak Velocity 387 cm/s TR Peak Gradient 51 mmHg Estimated PAP/RSVP RA Pressure 10 mmHg <=5 PA Systolic Pressure 70 mmHg <36 RV Systolic Pressure 70 mmHg <36 Aortic Valve Name Value Normal AV Doppler AV Peak Velocity 138 cm/s AV Peak Gradient 8 mmHg AV Mean Gradient 4 mmHg AV VTI 30 cm AV Area (Cont Eq VTI) 1.5 cm2 >=3.0 AV Area (Cont Eq Hira) 1.5 cm2 AV V1/V2 Ratio 0.58 AV Regurgitation 2D LVOT Area 2.6 cm2 Ventricles Name Value Normal LV Dimensions 2D/MM IVS Diastolic Thickness (2D) 0.8 cm 0.6-1.0 LVID Diastole (2D) 5.0 cm 3.8-5.2 LVIW Diastolic Thickness (2D) 0.8 cm 0.6-0.9 LVID Systole (2D) 3.3 cm 2.2-3.5 LVOT Diameter 1.8 cm LV Mass (2D Cubed) 138.95 g 67.00-162.00 LV Mass Index (2D Cubed) 65 g/m2 43-95 Relative Wall Thickness (2D) 0.33 LV Fractional Shortening/Ejection Fraction 2D/MM LV Fractional Shortening (2D) 33 % 27-45 LV EF (2D Teicholz) 62 % 54-74 LV Diastolic Volume (4C MOD) 98 ml LV EF (4C MOD) 50 % LV Diastolic Length (4C) 8.4 cm LV Systolic Length (4C) 7.7 cm LV Stroke Volume (4C MOD) 49 ml Atria Name Value Normal LA Dimensions LA Volume (4C A-L) 93 ml RA Dimensions RA Area (4C) 15.9 cm2 <=18.0 Report Signatures
[2024-07-19] MEDS: METHOTREXATE 2.5 MG TAB (*CHEMO) PO (15:46)
[2024-07-19] MEDS: POTASSIUM CHLORIDE 20 MEQ ER TABLET 40 MEQ PO (17:03)
[2024-07-19] MEDS: MELATONIN 5 MG TABLET PO (21:22)
[2024-07-20] VITALS: BP 130/53; PULSE 83; RESP 20; TEMP 36.6; O2SAT 90
[2024-07-20 04:00] VITALS: BP 118/56; PULSE 71; RESP 18; TEMP 36.3; O2SAT 91
[2024-07-20 05:20] LABS: Basophils Absolute Auto 0.05 K/mm3 (0.00-0.10); Basophils Percent Auto 0.8 % (0.0-1.0); Eosinophils Absolute Auto 0.19 K/mm3 (0.02-0.50); Hematocrit 28.9 % (35.0-42.0); Hemoglobin 8.6 g/dL (11.7-13.8); Immature Granulocyte Absolute 0.04 K/mm3 (0.00-0.00); Immature Granulocyte Percent A 0.6 % (0.0-0.0); Lymphocytes Absolute Auto 0.55 K/mm3 (1.10-4.50); Lymphocytes Percent Auto 8.7 % (18.0-42.0); Mean Corpuscular HGB Conc 29.8 g/dL (32-36); Mean Corpuscular Hemoglobin 25.4 pg (27.0-31.0); Mean Corpuscular Volume 85.5 fL (78.0-102.0); Mean Platelet Volume 10.1 fl (9.2-11.8); Monocytes Absolute Auto 0.63 K/mm3 (0.10-0.90); Neutrophils Absolute Auto 4.83 K/mm3 (1.70-7.20); Neutrophils Percent Auto 76.9 % (50.0-70.0); Platelet Count Result 184 K/mm3 (150-420); Red Blood Count 3.38 M/mm3 (4.20-5.40); Red Cell Distribution Width 21.1 % (11.6-14.4); White Blood Count 6.3 K/mm3 (4.8-10.8)
[2024-07-20 05:38] LABS: Alanine Aminotransferase 10 U/L (14-59); Albumin Level 2.9 g/dL (3.4-5.0); Alkaline Phosphatase 40 U/L (46-116); Anion Gap 12 mmol/L (4-12); Aspartate Amino Transferase < 10 U/L (15-37); Bilirubin,Total 0.8 mg/dL (0.00-1.00); Blood Urea Nitrogen 25 mg/dL (7-18); Calcium 8.9 mg/dL (8.5-10.1); Carbon Dioxide 29 mmol/L (21-32); Chloride 99 mmol/L (98-108); Estimated CRCL calculation 46 ml/min; Estimated Glomerular Filt Rate 45; Glucose 101 mg/dL (70-99); Osmolality Calculated 294 mOsm/kg (285-295); Potassium 3.7 mmol/L (3.5-5.1); Sodium 140 mmol/L (136-145); Total Protein 5.9 g/dL (6.4-8.2)
[2024-07-20 08:00] VITALS: BP 118/50; PULSE 71; RESP 14; TEMP 36.3; O2SAT 94
--- NOTE | 2024-07-20 08:11 | P.PNIM_ITS ---
Progress Note: A&P Assessment and Plan (1) Acute exacerbation of chronic heart failure: Code(s): I50.9 - Heart failure, unspecified Status: Acute Assessment and Plan: patient presented with bilateral lower extremity edema from the hips down to the ankle, reporting shortness of breath with exertion * chest x-ray showing right lower lobe atelectasis versus pneumonia with pleural effusion, underlying cardiac decompensation and pulmonary edema is not excluded * pleural effusion appears to be chronic after review of EMR, she is noted to have a loculated right pleural effusion which is moderate. she is followed by a network security officer over at [facility] and has not received thoracentesis for this considering it is been there for years. * Continue diuresis with IV Lasix b.i.d. * will obtain an echo considering the significance of her swelling-- concerns for takotsubo cardiomyopathy versus worsening congestive heart failure. Patient recently buried her back in April of this year and has been feeling fatigued and worn down since that time. * Continue heart healthy diet * fluid restriction 1500 mL per day * continue spironolactone * continue to trend troponin, troponin on admission was 10.5 * proBNP 6494 * patient sees Dr. Steele over at [facility] who did her mitral valve replacement however she has not seen him in over a year and can not remember the last time she had an echocardiogram. There is no echocardiogram for review in our EMR. 07/18 * Awaiting echo * Continue diuresis with Lasix 40 mg BID * continue fluid restriction * continue spironolactone * troponin negative x4 07/19/2024: * Appears euvolemic * will transition back to her oral Lasix in the a.m. * Echo 07/20 pending 07/20/24: * Transition to PO lasix * ECHO: Grade III diastolic HF LVEF 55-60% with severe pulmonary hypertension and moderate to sever TR * Venous dopplers pending to R/O DVT LE and RUE from IV infiltration. (2) GERD (gastroesophageal reflux disease): Code(s): K21.9 - Gastro-esophageal reflux disease without esophagitis Status: Acute Assessment and Plan: * continue Protonix (3) Anemia: Code(s): D64.9 - Anemia, unspecified Status: Acute Assessment and Plan: * hemoglobin 9.3-- appears to be ongoing since February of this year * will check vitamin B12, folic acid, ferritin, iron, TSH 07/18 * TSH 1.81, folate 18.6, vitamin B12 1396, iron 16, ferritin 191 * will give Venofer 500 mg x1 now * will start ferrous sulfate 325 mg b.i.d. STABLE L (4) Rheumatoid arthritis: Code(s): M06.9 - Rheumatoid arthritis, unspecified Status: Acute Assessment and Plan: * Currently on methotrexate however this is currently on hold due to it not being formulary-- however she only takes this weekly * she is followed by process tech at [facility] in [place], Dr. Khan * patient has redness to her left hand and down her left forearm which is warm to the touch and tender to touch. she states that she often gets flare-ups in both hands * she is currently getting infusions at [facility] once a month. She is due for her next infusion this * will check ESR and CRP 07/18 * ESR 33, CRP 10.7 07/19 * methotrexate given today * unable to do patient's Orencia infusion we will need to reschedule outpatient (5) Mitral valve replaced: Code(s): Z95.2 - Presence of prosthetic heart valve Status: Acute Assessment and Plan: * [address] Steele at [facility] (6) Depression: Code(s): F32.9 - Major depressive disorder, single episode, unspecified Status: Acute Assessment and Plan: * continue Cymbalta * recently buried her back in April of last year Plan Code status: Full code per patient DVT prophylaxis: Lovenox Stress ulcer prophylaxis: Protonix 40 daily PT/OT notes: swing bed Disposition: patient continues admission CHF exacerbation but also needs to be ruled out for cardiomyopathy pending echocardiogram which will be completed tomorrow. Patient with generalized weakness worsening and unable to care for self at home plan is discharge to swing bed and placed to assisted living. Time Spent With Patient Time with patient: 15 - 25 minutes Subjective Date/time seen: 07/20/24 08:11 Interval history: Patient is a 74-year-old female who was admitted to the medical unit for further evaluation and treatment CHF exacerbation. Patient is also set to transitioned to [facility] bed for rehabilitation then to an assisted living facility reports she is unable to care for herself anymore on her own. 07/20/2024: Patient reported pain to LE swelling improving but will check for DVT, Patient denied any CP, SOB, N/V. RUE with IV infiltration swelling and redness noted doppler pending. Plan for swing bed tomorrow. Review of Systems Review of Systems: All systems reviewed & are unremarkable except as noted in HPI and below Exam Narrative: General: In no acute distress, well nourished Cardiac: Normal S1 and S2. S3 present. No murmur, gallops or friction rubs, peripheral pulses intact. Respiratory: Lungs slightly coarse, diminished in the bases , no adventitious lung sounds, currently on room air Gastrointestinal: soft, non-distended, non-tender, normoactive bowel sounds. : voiding without difficulty. Extremities: moves all extremities well, extensive edema to both lower extremities-- she is noted to have swelling from her hips down to her ankles has improved but reporting pain Skin: Redness, swelling to RUE at IV site Neuro: Alert and oriented x4 Objective Data Vital Signs Vital Signs: Vital Signs - 24 hr 07/19/24 12:00 07/19/24 12:00 07/19/24 16:00 Temperature 97.8 F 98 F Pulse Rate 74 68 74 Respiratory Rate 14 20 Blood Pressure 122/60 130/60 Pulse Oximetry 94 93 Oxygen Delivery Room Air Room Air 07/19/24 16:00 07/19/24 20:00 07/19/24 20:00 Temperature 97.5 F L Pulse Rate 74 72 73 Respiratory Rate 17 Blood Pressure 131/56 L Pulse Oximetry 91 Oxygen Delivery Room Air 07/19/24 23:43 07/20/24 00:00 07/20/24 04:00 Temperature 97.8 F Pulse Rate 74 83 71 Respiratory Rate 20 Blood Pressure 130/53 L Pulse Oximetry 90 Oxygen Delivery Room Air 07/20/24 04:00 Temperature 97.3 F L Pulse Rate 71 Respiratory Rate 18 Blood Pressure 118/56 L Pulse Oximetry 91 Oxygen Delivery Room Air Intake/Output Intake/Output: Intake & Output 07/17/24 07/18/24 07/19/24 07/20/24 23:59 23:59 23:59 23:59 Intake Total 320 1645 1100 200 Output Total 100 950 850 200 Balance 220 695 250 0 Meds/Results Medications: Active Medications Generic Name Dose Route Start Last Admin Trade Name Freq PRN Reason Stop Dose Admin Acetaminophen 650 mg 07/17/24 19:25 07/18/24 20:25 Acetaminophen 325 Mg Tablet PO 650 mg Q4H PRN Administration Mild Pain (1-3) or Fever Albuterol 2 puff 07/17/24 19:27 Albuterol Sulfate (*Sp) Inhaler INHALATION Q4-6H PRN shortness of breath or wheezing Dicyclomine HCl 20 mg 07/18/24 09:00 07/19/24 09:34 Dicyclomine Hcl 10 Mg Capsule PO 20 mg DAILY LUCHO Administration Duloxetine HCl 20 mg 07/18/24 09:00 07/19/24 09:35 Duloxetine Hcl 20 Mg Capsule.Dr PO 20 mg DAILY LUCHO Administration Enoxaparin Sodium 40 mg 07/18/24 09:00 07/19/24 09:34 Enoxaparin 40 Mg/0.4 Ml Syringe SUB-Q 40 mg DAILY LUCHO Administration Ferrous Sulfate 325 mg 07/18/24 17:00 07/19/24 17:04 Ferrous Sulfate [address] PO 325 mg BID LUCHO Administration Folic Acid 1 mg 07/18/24 09:00 07/19/24 09:35 Folic Acid 1 Mg Tablet PO 1 mg DAILY LUCHO Administration Furosemide 40 mg 07/17/24 19:25 07/19/24 17:03 Furosemide Inj 40 Mg/4 Ml Vial IV PUSH 40 mg BID LUCHO Administration Melatonin 5 mg 07/19/24 20:33 07/19/24 21:22 Melatonin 5 Mg Tablet PO 5 mg HS PRN Administration Sleep Methotrexate 2.5 mg 07/26/24 09:00 Methotrexate 2.5 Mg Tab (*Chemo) PO WEEKLY LUCHO Ondansetron HCl 4 mg 07/17/24 19:25 Ondansetron Inj 4 Mg/2 Ml Vial IV PUSH Q6H PRN Nausea And Vomiting Pantoprazole Sodium 40 mg 07/18/24 09:00 07/19/24 09:34 Pantoprazole 40 Mg Tablet PO 40 mg DAILY LUCHO Administration Perflutren Lipid Microsphere 0 ml 07/17/24 19:25 Perflutren Lipid Microspheres 1.5 Ml Vial Diluted To 10 Ml Total Volume IV PUSH 07/20/24 19:27 ONCE PRN adequate visualization Protocol Potassium Chloride 40 meq 07/19/24 17:00 07/19/24 17:03 Potassium Chloride 20 Meq Er Tablet PO 40 meq BIDWM LUCHO Administration Spironolactone 25 mg 07/18/24 09:00 07/19/24 09:34 Spironolactone 25 Mg Tablet PO 25 mg DAILY LUCHO Administration Radiology Results: ITS Impressions Chest X-Ray 07/17/24 13:38 IMPRESSION: Right lower lobe atelectasis versus pneumonia with pleural effusion. Underlying cardiac decompensation and pulmonary edema is not excluded. Labs Labs: Laboratory Results - last 24 hr 07/20/24 05:14 WBC 6.3 RBC 3.38 L Hgb 8.6 L Hct 28.9 L MCV 85.5 MCH 25.4 L MCHC 29.8 L RDW 21.1 H Plt Count 184 MPV 10.1 Immature Gran % (Auto) 0.6 H Neut % (Auto) 76.9 H Lymph % (Auto) 8.7 L [place] % (Auto) 10.0 Eos % (Auto) 3.0 Baso % (Auto) 0.8 Lymph # (Auto) 0.55 L [place] # (Auto) 0.63 Eos # (Auto) 0.19 Baso # (Auto) 0.05 Abs Immat Gran (auto) 0.04 H Absolute Neuts (auto) 4.83 Absolute Nucleated RBC 0.00 Nucleated RBC % 0.0 Sodium 140 Potassium 3.7 Chloride 99 Carbon Dioxide 29 Anion Gap 12 BUN 25 H Creatinine 1.17 H Estim Creat Clear Calc 46 Estimated GFR 45 L Glucose 101 H Calculated Osmolality 294 Calcium 8.9 Total Bilirubin 0.8 AST < 10 L ALT 10 L Alkaline Phosphatase 40 L Total Protein 5.9 L Albumin 2.9 L Quality VTE Prophylaxis VTE prophylaxis: pharmacologic ordered -Patient's previous records reviewed on admission -ER notes reviewed in detail on admission -discussed all findings and current treatment plan with patient/Family/POA -Consultations reviewed for recommendations -Patient's disposition for safe discharge discussed with behavioral health case manager Dictation performed by [employer] direct speech recognition software, therefore medical front desk specialist variants and typographical errors may occur. Hospitalist MIPS Advance Care Plan I have confirmed that the patient's Advanced Care Plan is present, code status is documented, or surrogate decision maker is listed in patient medical record.: Yes Medication Reconciliation I have utilized all available resources to obtain, update and review the patients current medications (includes all prescriptions, OTC, herbals, can nabis, and nutritional supplements).: Yes The patient is not eligible for med reconciliation; the patient is in a emergent medical situation where delaying treatment would jeopardize the patients health.: No
[2024-07-20] MEDS: POTASSIUM CHLORIDE 20 MEQ ER TABLET 40 MEQ PO (08:20)
[2024-07-20] MEDS: FUROSEMIDE INJ 40 MG/4 ML VIAL IV PUSH (09:35)
[2024-07-20] MEDS: ENOXAPARIN 40 MG/0.4 ML SYRINGE SUB-Q (09:35)
[2024-07-20] MEDS: DICYCLOMINE HCL 10 MG CAPSULE 20 MG PO (09:36)
[2024-07-20] MEDS: PANTOPRAZOLE 40 MG TABLET PO (09:36)
[2024-07-20] MEDS: DULoxetine HCL 20 MG CAPSULE.DR PO (09:36)
[2024-07-20] MEDS: FERROUS SULFATE 325 MG TABLET DR PO ×2 (09:36→17:25)
[2024-07-20] MEDS: SPIRONOLACTONE 25 MG TABLET PO (09:36)
[2024-07-20] MEDS: FOLIC ACID 1 MG TABLET PO (09:36)
[2024-07-20] MEDS: POTASSIUM CHLORIDE 20 MEQ PACKET (FOR LIQUID) 40 MEQ PO (11:07)
[2024-07-20 12:00] VITALS: BP 120/50; PULSE 70; PULSE 72; RESP 14; TEMP 36.6; O2SAT 96
--- NOTE | 2024-07-20 12:17 | PC.NURSE ---
Pt tried to take the potassium pills but choked and threw them up. CONSTRUCTION PROJECT ASSISTANT notified and pt tried the oral potassium and threw it up. CONSTRUCTION PROJECT ASSISTANT notified.
--- NOTE | 2024-07-20 13:38 | PC.NURSE ---
Informed FOOD PROCESSING PLANT MANAGER of results to BLE and RUE venous doppler.
[2024-07-20 16:00] VITALS: BP 131/55; PULSE 68; PULSE 72; RESP 17; TEMP 36.2; O2SAT 92
[2024-07-20] MEDS: FUROSEMIDE 40 MG TABLET PO (17:25)
[2024-07-20 20:00] VITALS: BP 134/58; PULSE 71; PULSE 72; RESP 17; TEMP 36.4; O2SAT 94
[2024-07-20] MEDS: traZODone HCL 50 MG TABLET PO (21:10)
[2024-07-21] VITALS: PULSE 69; PULSE 71; RESP 18
[2024-07-21 04:00] VITALS: BP 130/62; PULSE 66; PULSE 67; RESP 16; TEMP 36.6; O2SAT 95
[2024-07-21 05:42] LABS: Basophils Absolute Auto 0.05 K/mm3 (0.00-0.10); Basophils Percent Auto 1.1 % (0.0-1.0); Eosinophils Absolute Auto 0.21 K/mm3 (0.02-0.50); Eosinophils Percent Auto 4.5 % (1.0-6.0); Hematocrit 29.5 % (35.0-42.0); Hemoglobin 8.6 g/dL (11.7-13.8); Immature Granulocyte Absolute 0.04 K/mm3 (0.00-0.00); Immature Granulocyte Percent A 0.9 % (0.0-0.0); Lymphocytes Absolute Auto 0.53 K/mm3 (1.10-4.50); Lymphocytes Percent Auto 11.5 % (18.0-42.0); Mean Corpuscular HGB Conc 29.2 g/dL (32-36); Mean Corpuscular Hemoglobin 25.4 pg (27.0-31.0); Mean Platelet Volume 9.7 fl (9.2-11.8); Monocytes Absolute Auto 0.54 K/mm3 (0.10-0.90); Monocytes Percent Auto 11.7 % (2.0-11.0); Neutrophils Absolute Auto 3.25 K/mm3 (1.70-7.20); Neutrophils Percent Auto 70.3 % (50.0-70.0); Platelet Count Result 184 K/mm3 (150-420); Red Blood Count 3.39 M/mm3 (4.20-5.40); Red Cell Distribution Width 21.2 % (11.6-14.4); White Blood Count 4.6 K/mm3 (4.8-10.8)
[2024-07-21 05:57] LABS: Alanine Aminotransferase 19 U/L (14-59); Alkaline Phosphatase 38 U/L (46-116); Anion Gap 7 mmol/L (4-12); Aspartate Amino Transferase 15 U/L (15-37); Bilirubin,Total 1.1 mg/dL (0.00-1.00); Blood Urea Nitrogen 22 mg/dL (7-18); Calcium 8.9 mg/dL (8.5-10.1); Carbon Dioxide 33 mmol/L (21-32); Chloride 100 mmol/L (98-108); Estimated CRCL calculation 47 ml/min; Estimated Glomerular Filt Rate 47; Glucose 96 mg/dL (70-99); Osmolality Calculated 293 mOsm/kg (285-295); Potassium 3.9 mmol/L (3.5-5.1); Sodium 140 mmol/L (136-145)
[2024-07-21] MEDS: FUROSEMIDE 40 MG TABLET PO (09:40)
[2024-07-21] MEDS: DULoxetine HCL 20 MG CAPSULE.DR PO (09:51)
[2024-07-21] MEDS: ENOXAPARIN 40 MG/0.4 ML SYRINGE SUB-Q (09:51)
[2024-07-21] MEDS: SPIRONOLACTONE 25 MG TABLET PO (09:51)
[2024-07-21] MEDS: FOLIC ACID 1 MG TABLET PO (09:52)
[2024-07-21] MEDS: DICYCLOMINE HCL 10 MG CAPSULE 20 MG PO (09:52)
[2024-07-21] MEDS: FERROUS SULFATE 325 MG TABLET DR PO (09:52)
[2024-07-21] MEDS: PANTOPRAZOLE 40 MG TABLET PO (09:52)
--- NOTE | 2024-07-21 10:59 | P.DS_ITS ---
DS: Admitting Diagnosis Discharge Date 07/21/2024 Admitting Diagnosis acute on chronic congestive heart failure DS: Discharge Diagnosis Discharge Diagnosis (1) Acute exacerbation of chronic heart failure: Code(s): I50.9 - Heart failure, unspecified Status: Acute Assessment and Plan: patient presented with bilateral lower extremity edema from the hips down to the ankle, reporting shortness of breath with exertion * chest x-ray showing right lower lobe atelectasis versus pneumonia with pleural effusion, underlying cardiac decompensation and pulmonary edema is not excluded * pleural effusion appears to be chronic after review of EMR, she is noted to have a loculated right pleural effusion which is moderate. she is followed by a ash handler over at [facility] and has not received thoracentesis for this considering it is been there for years. * Continue diuresis with IV Lasix b.i.d. * will obtain an echo considering the significance of her swelling-- concerns for takotsubo cardiomyopathy versus worsening congestive heart failure. Patient recently buried her back in April of this year and has been feeling fatigued and worn down since that time. * Continue heart healthy diet * fluid restriction 1500 mL per day * continue spironolactone * continue to trend troponin, troponin on admission was 10.5 * proBNP 6494 * patient sees Dr. Steele over at [facility] who did her mitral valve replacement however she has not seen him in over a year and can not remember the last time she had an echocardiogram. There is no echocardiogram for review in our EMR. 07/18 * Awaiting echo * Continue diuresis with Lasix 40 mg BID * continue fluid restriction * continue spironolactone * troponin negative x4 07/19/2024: * Appears euvolemic * will transition back to her oral Lasix in the a.m. * Echo 07/20 pending 07/20/24: * Transition to PO lasix * ECHO: Grade III diastolic HF LVEF 55-60% with severe pulmonary hypertension and moderate to sever TR * Venous dopplers pending to R/O DVT LE and RUE from IV infiltration. discharged on oral Lasix 40 mg b.i.d. elevate legs at rest low-sodium diet May Denny wrap legs (2) GERD (gastroesophageal reflux disease): Code(s): K21.9 - Gastro-esophageal reflux disease without esophagitis Status: Acute Assessment and Plan: * continue Protonix (3) Anemia: Code(s): D64.9 - Anemia, unspecified Status: Acute Assessment and Plan: * hemoglobin 9.3-- appears to be ongoing since February of this year * will check vitamin B12, folic acid, ferritin, iron, TSH 07/18 * TSH 1.81, folate 18.6, vitamin B12 1396, iron 16, ferritin 191 * will give Venofer 500 mg x1 now * will start ferrous sulfate 325 mg b.i.d. STABLE Discharge on Ferrous sulfate (4) Rheumatoid arthritis: Code(s): M06.9 - Rheumatoid arthritis, unspecified Status: Acute Assessment and Plan: * Currently on methotrexate however this is currently on hold due to it not being formulary-- however she only takes this weekly * she is followed by computer consultant at [facility] in [place], Dr. Khan * patient has redness to her left hand and down her left forearm which is warm to the touch and tender to touch. she states that she often gets flare-ups in both hands * she is currently getting infusions at [facility] once a month. She is due for her next infusion this * will check ESR and CRP 07/18 * ESR 33, CRP 10.7 07/19 * methotrexate given today * unable to do patient's Orencia infusion we will need to reschedule outpatient continue methotrexate weekly and Orencia (5) Mitral valve replaced: Code(s): Z95.2 - Presence of prosthetic heart valve Status: Acute Assessment and Plan: * [address] Steele at [facility] (6) Depression: Code(s): F32.9 - Major depressive disorder, single episode, unspecified Status: Acute Assessment and Plan: * continue Cymbalta * recently buried her back in April of last year Plan Disposition: [facility] DS: Summary Hospital Course Reason for hospitalization: acute on chronic congestive heart failure exacerbation Hospital Course: Patient was a 74-year-old female who presented to the hospital with bilateral lower extremity and bilateral upper extremity swelling. Patient with significant past medical history of anemia, rheumatoid arthritis, GERD, COPD, CHF, depression, mitral valve replacement, former smoker. Patient reported swelling and shortness of breath for to 2 to 3 weeks. He states that she has a grip boss Dr. Steele at [facility] who did her mitral valve replacement. She also has not seen her grip boss in over a year. Workup in the hospital included a chest x-ray which showed right lower lobe atelectasis versus pneumonia with pleural effusion, underlying cardiac decompensation and pulmonary edema is not excluded. Previous imaging including a chest / abdomen/ pelvis CT on 11/09/2022 showed a chronic moderate size loculated right pleural effusion at that time. It was again Noted on the 02/18/2024 abdomen/pelvis CT which showed a chronic moderate size loculated right pleural effusion. She states she has a ash handler over at [facility] who she follows with. Her ash handler said that the loculated pleural effusion has been there for quite a number of years and will just continue to monitor it at this time. She did not have to get thoracentesis for this. EKG showing sinus rhythm with a rate of 81, QTC 460. Patient was given 40 mg of IV push Lasix while in the ED. She was admitted for further diuresis and work up of her CHF. echocardiogram was repeated which showed grade 3 diastolic dysfunction and LV EF of 55-60% and severe pulmonary hypertension. patient was initiated on IV Lasix b.i.d. responded well lower extremity swelling improved patient denied any shortness a breath in remained on room air during diuresis. during the admission patient did report she was unable to care for self at home anymore due to her chronic conditions. PT/OT for evaluation recommended continued rehabilitation inpatient at which time she agreed to [facility] for further rehab did have discussion with patient and daughter both are attempting to get patient placed in an assisted living if possible plan would be to discharge from swing bed to assisted living. patient with overall improvement was able to transition back to oral Lasix. patient updated on discharge plan acknowledged and agreed patient was then discharged to [facility] for continued rehab. Status at Discharge Functional status at discharge: uses cane/walker Overall status at discharge: patient is progressing back to baseline Time Spent with Patient Time attestation: Total time spent providing and/or coordinating discharge services: Time spent: Greater than 30 minutes Exam Narrative: General: In no acute distress, well nourished Cardiac: Normal S1 and S2. S3 present. No murmur, gallops or friction rubs, peripheral pulses intact. Respiratory: Lungs slightly coarse, diminished in the bases , no adventitious lung sounds, currently on room air Gastrointestinal: soft, non-distended, non-tender, normoactive bowel sounds. : voiding without difficulty. Extremities: moves all extremities well, extensive edema to both lower extremities improving Skin: Redness, swelling to RUE at IV site Neuro: Alert and oriented x4 DS: Data Data Completed and Pending Labs on day of discharge: Labs from last 24 hours 07/21/24 05:13 WBC 4.6 L RBC 3.39 L Hgb 8.6 L Hct 29.5 L MCV 87.0 MCH 25.4 L MCHC 29.2 L RDW 21.2 H Plt Count 184 MPV 9.7 Immature Gran % (Auto) 0.9 H Neut % (Auto) 70.3 H Lymph % (Auto) 11.5 L Carolina % (Auto) 11.7 H Eos % (Auto) 4.5 Baso % (Auto) 1.1 H Lymph # (Auto) 0.53 L Carolina # (Auto) 0.54 Eos # (Auto) 0.21 Baso # (Auto) 0.05 Abs Immat Gran (auto) 0.04 H Absolute Neuts (auto) 3.25 Absolute Nucleated RBC 0.00 Nucleated RBC % 0.0 Sodium 140 Potassium 3.9 Chloride 100 Carbon Dioxide 33 H Anion Gap 7 BUN 22 H Creatinine 1.14 H Estim Creat Clear Calc 47 Estimated GFR 47 L Glucose 96 Calculated Osmolality 293 Calcium 8.9 Total Bilirubin 1.1 H AST 15 ALT 19 Alkaline Phosphatase 38 L Total Protein 6.0 L Albumin 3.0 L Imaging Radiologist's impression: Radiology Results: ITS Impressions Chest X-Ray 07/17/24 13:38 IMPRESSION: Right lower lobe atelectasis versus pneumonia with pleural effusion. Underlying cardiac decompensation and pulmonary edema is not excluded. Discharge Plan Discharge Attending physician on discharge: Juanjose Pedro Discharging Clinician: Kaelyn Lucero Anticipated Discharge Date/Time: 07/21/24 10:52 Patient Disposition: Hospital Swing Bed Discharge Instructions: CHF: * Heart healthy diet/ low-sodium * fluid restriction of 1500 mL daily * elevate legs when at rest * May denny wrap lower extremities Discharging to rehab encouraged to continue to work daily on increasing endurance and activity Patient Instructions: Antibiotic Form, Heart Failure (DC), Low-Sodium Diet (DC) Patient Language: Jordanian Stand Alone Forms: General Discharge Information Follow-up/Referrals: Dg Huerta MD [Primary Care Provider] - 4 Weeks Discharge Medications: New ferrous sulfate 325 mg (65 mg iron) Tablet,Delayed Release (Dr/Ec) 325 mg PO BID Qty: 1 0RF trazodone 50 mg Tablet 50 mg PO HS Qty: 1 0RF Continued methotrexate sodium 2.5 mg tablet 2.5 mg PO WEEKLY Rx Instructions: every wed. pantoprazole 40 mg tablet,delayed release (DR/EC) 40 mg PO DAILY folic acid 1 mg tablet 1 mg PO DAILY furosemide 40 mg Tablet 40 mg PO BID Qty: 30 0RF Patient Comments: pt states takes once daily albuterol sulfate 90 mcg/actuation HFA aerosol inhaler 2 puff INHALATION Q4-6H PRN (Reason: shortness of breath or wheezing) cetirizine 5 mg Tablet 5 mg PO DAILY spironolactone 25 mg tablet 25 mg PO DAILY duloxetine 20 mg capsule,delayed release(DR/EC) 20 mg PO DAILY omeprazole 40 mg capsule,delayed release(DR/EC) 40 mg PO DAILY dicyclomine 20 mg tablet 20 mg PO DAILY Date of admission: 07/18/24 15:07 Primary Care Provider: Dg Huerta Admitting Provider: Juanjose Pedro Attending physician on admission: Kaelyn Lucero Condition: Improved Quality VTE Prophylaxis VTE prophylaxis: pharmacologic ordered -Patient's previous records reviewed on admission -ER notes reviewed in detail on admission -discussed all findings and current treatment plan with patient/Family/POA -Consultations reviewed for recommendations -Patient's disposition for safe discharge discussed with medical case manager Dictation performed by [email or web address] direct speech recognition software, therefore gristmill operator variants and typographical errors may occur. Hospitalist MIPS Heart Failure (Exclusion) Patient has history of Heart Transplant or Left Ventricular Assistive Device?: No IF YES, STOP HERE Heart Failure (Qualifier) Patient has current or prior documentation of LVEF less than or equal to 40%, or mod/servere depressed LVSF?: No IF NO, STOP HERE
--- NOTE | 2024-07-22 07:47 | HP_ITS ---
This report was moved to the correct visit on 07/24/2024. The original report was signed by Latonia Khan APRN on 07/22/24 0829. H&P: HPI History of Present Illness Date/Time: 07/17/24 07:47 Chief Complaint: CHF exacerbation Narrative: This is a 74-year-old female with a significant past medical history of anemia, rheumatoid arthritis, GERD, COPD, CHF, depression, mitral valve replacement, former smoker who presented to the hospital with bilateral lower extremity and bilateral upper extremity swelling. patient had just left [place] for an outpatient EGD and colonoscopy and was needing help getting to the car due to her swelling. Patient admits to swelling and shortness of breath for to 2 to 3 weeks. She also states that she recently buried her of 50+ years of marriage and has been feeling very fatigued since that time. she states that she has a die cutter operator Dr. Steele at [facility] who did her mitral valve replacement. She does not recall having an echocardiogram done recently. She also has not seen her die cutter operator in over a year. Workup in the hospital included a chest x-ray which showed right lower lobe atelectasis versus pneumonia with pleural effusion, underlying cardiac decompensation and pulmonary edema is not excluded. Previous imaging including a chest / abdomen/ pelvis CT on 11/09/2022 showed a chronic moderate size loculated right pleural effusion at that time. It was again Noted on the 02/18/2024 abdomen/pelvis CT which showed a chronic moderate size loculated right pleural effusion. She states she has a singer songwriter over at [facility] who she follows with. Her singer songwriter said that the loculated pleural effusion has been there for quite a number of years and will just continue to monitor it at this time. She did not have to get thoracentesis for this. She denies any fever, chills, nausea, vomiting, diarrhea, abdominal pain, chest pain. She does endorse shortness of breath and swelling from her hips down to her ankles. She states that the swelling has impaired her ability to walk without assistance. She states that she follows a relatively heart healthy diet however over the past few months she has been receiving food from a friend. EKG showing sinus rhythm with a rate of 81, QTC 460. Patient was given 40 mg of IV push Lasix while in the ED. She is being admitted to this setting for further diuresis and work up of her CHF. Review of Systems Review of Systems: All systems reviewed & are unremarkable except as noted in HPI and below PMFSH Past Medical History Medical History Anemia Rheumatoid arthritis GERD (gastroesophageal reflux disease) COPD exacerbation Congestive heart failure Depression Acute renal failure Calculus of gallbladder with chronic cholecystitis without obstruction Encounter for surgical aftercare following surgery of digestive system Incisional hernia without obstruction or gangrene Surgical History Surgical History Mitral valve replaced Family History Family History Other Diabetes mellitus Malignant neoplasm of prostate Social History Social History Smoking packs per day: 1 Smoking cigarettes per day: 20.0 Years smoked: 35 Smoking pack-years: 35.00 Smoking status: Former smoker Tobacco type: cigarettes Second hand tobacco smoke exposure: No Smoking end date: 07/05/24 Alcohol intake: never Drinks per week: 2 Substance use: never Substance use type: does not use Do You Feel Safe in your Home?: Yes Lack of Transportation: No Lack of Food: Never True Current Housing: I Have Housing Concerned About Future Housing: No Difficulty Paying Gas/Electric Bills: No Difficulty Paying for Meds: No Currently Unemployed: No Education: High School Diploma/GED Difficulty w/ Childcare or Family Care: No Living arrangements: alone Additional living arrangements comments: LOST SPOUSE A FEW MONTHS AGO (APR 2024), PT HAVING DIFFICULTY MAKING IT ON HER OWN, PT HAS FRIENDS CHECK ON HER, GETS SOB EASILY, WEAR MEDICAL ALERT NECKLACE, SON GIUSEPPE LIVES 20 MINUTES AWAY, SON VERY BUSY Gender identity (if verbalized by the patient): Female Sexual Orientation (if Verbalized by the Patient): Straight or Heterosexual Spiritual care concerns: No Meds Home Medications and Allergies Home Medications ?Medication ?Instructions ?Recorded ?Confirmed ?Type folic acid 1 mg tablet 1 mg PO DAILY 09/19/20 07/21/24 History methotrexate sodium 2.5 mg tablet 2.5 mg PO WEEKLY 09/19/20 07/21/24 History pantoprazole 40 mg tablet,delayed 40 mg PO DAILY 09/19/20 07/21/24 History release furosemide 40 mg tablet 40 mg PO BID #30 tabs 05/20/21 07/21/24 Rx cetirizine 5 mg tablet 5 mg PO DAILY 02/18/24 07/21/24 History duloxetine 20 mg capsule,delayed 20 mg PO DAILY 02/18/24 07/21/24 History release spironolactone 25 mg tablet 25 mg PO DAILY 02/18/24 07/21/24 History dicyclomine 20 mg tablet 20 mg PO DAILY 07/06/24 07/21/24 History omeprazole 40 mg capsule,delayed 40 mg PO DAILY 07/06/24 07/21/24 History release albuterol sulfate 90 mcg/actuation 2 puff inhalation Q4-6H PRN 07/17/24 07/21/24 History aerosol inhaler shortness of breath or wheezing Allergies Allergy/AdvReac Type Severity Reaction Status Date / Time nizatidine Allergy Severe Unknown Verified 07/17/24 13:44 Vital Signs Vital Signs - 24 hr 07/21/2511:17 07/21/2515:00 07/22/2499:00 Temperature 97 F L 97.5 F L Pulse Rate 71 71 84 Respiratory Rate 18 18 16 Blood Pressure 138/65 Pulse Oximetry 95 95 92 Oxygen Delivery Room Air Room Air Room Air Exam Narrative: General: In no acute distress, well nourished Head: atraumatic, no encephalopathy Eyes: EOMI, PERRLA, sclera clear ENT: moist mucous membranes, nasal passages clear Neck: supple, no JVD, no adenopathy, trachea midline Cardiac: Normal S1 and S2. S3 present. No murmur, gallops or friction rubs, peripheral pulses intact. Respiratory: Lungs slightly coarse, no adventitious lung sounds, currently on room air Gastrointestinal: soft, non-distended, non-tender, normoactive bowel sounds. : voiding without difficulty. Extremities: moves all extremities well, extensive edema to both lower extremities-- she is noted to have swelling from her hips down to her ankles Skin: redness noted to left palm of hand and forearm-- history of rheumatoid arthritis Neuro: Alert and oriented x4, cranial nerves intact, no neuro deficits. Psych: tearful at times, interactive H&P: Results Imaging Chest x-ray: Radiologist's impression: XR chest 1V portable Ordering provider: Bradley Langley III, DO History: 74 years Female with . SOB X months, valve placement X 8 yrs ago . Comparison: April 21, 2024 FINDINGS: MEDIASTINUM: The cardiac silhouette is not enlarged. Postoperative changes in the mediastinum. Congestive vipul. LUNGS: No pneumothorax. Opacification in the right lower lobe with pleural effusion. Bilateral interstitial changes. OTHER: No free air under the diaphragm. IMPRESSION: Right lower lobe atelectasis versus pneumonia with pleural effusion. Underlying cardiac decompensation and pulmonary edema is not excluded. Reviewed, dictated and finalized at location [facility] Assessment and Plan Assessment and plan (1) Acute exacerbation of chronic heart failure: Code(s): I50.9 - Heart failure, unspecified Status: Acute Assessment and Plan: patient presented with bilateral lower extremity edema from the hips down to the ankle, reporting shortness of breath with exertion * chest x-ray showing right lower lobe atelectasis versus pneumonia with pleural effusion, underlying cardiac decompensation and pulmonary edema is not excluded * pleural effusion appears to be chronic after review of EMR, she is noted to have a loculated right pleural effusion which is moderate. she is followed by a singer songwriter over at [facility] and has not received thoracentesis for this considering it is been there for years. * Continue diuresis with IV Lasix b.i.d. * will obtain an echo considering the significance of her swelling-- concerns for takotsubo cardiomyopathy versus worsening congestive heart failure. Patient recently buried her back in April of this year and has been feeling fatigued and worn down since that time. * Continue heart healthy diet * fluid restriction 1500 mL per day * continue spironolactone * continue to trend troponin, troponin on admission was 10.5 * proBNP 6494 * patient sees Dr. Steele over at [facility] who did her mitral valve replacement however she has not seen him in over a year and can not remember the last time she had an echocardiogram. There is no echocardiogram for review in our EMR.(2) GERD (gastroesophageal reflux disease): Code(s): K21.9 - Gastro-esophageal reflux disease without esophagitis Status: Acute Assessment and Plan: * continue Protonix(3) Anemia: Code(s): D64.9 - Anemia, unspecified Status: Acute Assessment and Plan: * hemoglobin 9.3-- appears to be ongoing since February of this year * will check vitamin B12, folic acid, ferritin, iron, TSH(4) Rheumatoid arthritis: Code(s): M06.9 - Rheumatoid arthritis, unspecified Status: Acute Assessment and Plan: * Currently on methotrexate however this is currently on hold due to it not being formulary-- however she only takes this weekly * she is followed by exterior designer at [facility] in [facility], Dr. Khan * patient has redness to her left hand and down her left forearm which is warm to the touch and tender to touch. she states that she often gets flare-ups in both hands * she is currently getting infusions at [facility] once a month. She is due for her next infusion this * will check ESR and CRP(5) Mitral valve replaced: Code(s): Z95.2 - Presence of prosthetic heart valve Status: Acute Assessment and Plan: * [address] Steele at [facility](6) Depression: Code(s): F32.9 - Major depressive disorder, single episode, unspecified Status: Acute Assessment and Plan: * continue Cymbalta * recently buried her back in April of last year Quality VTE Prophylaxis VTE prophylaxis: pharmacologic ordered Hospitalist [facility] Advance Care Plan I have confirmed that the patient's Advanced Care Plan is present, code status is documented, or surrogate decision maker is listed in patient medical record.: Yes Medication Reconciliation I have utilized all available resources to obtain, update and review the patients current medications (includes all prescriptions, OTC, herbals, cannabis, and nutritional supplements).: Yes Please be advised this is a medical document. It is intended for [id number] communication. It is written in medical language and may contain unfamiliar abbreviations or verbiage. Medical documents are intended to carry relevant information, facts as evident, and the clinical opinion of the practitioner at the time of the encounter. This report may have been done utilizing a voice recognition system. Attempts have been made to correct errors. However, there may be uncorrected grammatical, spelling, and recognition errors present. The file time of this note does not necessarily represent the time the patient was seen. Report Initialized date/time: Latonia Khan APRN 07/22/24 / 0747 Electronically signed by: Latonia Khan APRN 07/22/24 0829 [facility]
== END 2024-07-21 10:51 | disposition swing bed (61) | DRG 293 ==
LOC: CHSED 14:16 → CHS2ND 14:45
PROVIDERS: Nurse Practitioner Acute Care; Admitting Provider Internal Medicine; Emergency Provider Emergency Medicine; PCP Internal Medicine; Visit Provider Nurse Practitioner Family
DX: I50.9 Heart failure, unspecified (principal); K21.9 Gastro-esophageal reflux disease without esophagitis; D64.9 Anemia, unspecified; M06.9 Rheumatoid arthritis, unspecified; Z95.2 Presence of prosthetic heart valve; F32.9 Major depressive disorder, single episode, unspecified; J44.9 Chronic obstructive pulmonary disease, unspecified; Z87.891 Personal history of nicotine dependence
CPT/HCPCS: 36415; 71045; 80053; 82607; 82728; 82746; 83540; 83550; 83735; 83880; 84443; 84484; 85025; 85610; 85652; 85730; 86140; 93005; 93306; 93970; 93971; 96365; 96372; 96374; 96375; 96376; 97110; 97161; 97165; 97530; 97535; 99285; A9270; G0378; J1650; J1756; J1940; J7050

== ENCOUNTER 2024-07-21 10:52 | Inpatient (IN) | payer MEDICARE, OTHER, SELFPAY ==
[2024-07-21 12:17] VITALS: PULSE 71; RESP 18; O2SAT 95
--- NOTE | 2024-07-21 13:34 | PC.NURSE ---
Pt transitioned to swing bed status at 1220 today
[2024-07-21 16:00] VITALS: PULSE 71; RESP 18; TEMP 36.1; O2SAT 95
[2024-07-21] MEDS: FUROSEMIDE 40 MG TABLET PO (17:25)
[2024-07-21] MEDS: traZODone HCL 50 MG TABLET PO (21:14)
[2024-07-22] VITALS: BP 138/65; PULSE 84; RESP 16; TEMP 36.4; O2SAT 92
--- NOTE | 2024-07-22 07:47 | P.HP_ITS ---
H&P: HPI History of Present Illness Date/Time: 07/17/24 07:47 Chief Complaint: CHF exacerbation Narrative: This is a 74-year-old female with a significant past medical history of anemia, rheumatoid arthritis, GERD, COPD, CHF, depression, mitral valve replacement, former smoker who presented to the hospital with bilateral lower extremity and bilateral upper extremity swelling. patient had just left [place] for an outpatient EGD and colonoscopy and was needing help getting to the car due to her swelling. Patient admits to swelling and shortness of breath for to 2 to 3 weeks. She also states that she recently buried her of 50+ years of marriage and has been feeling very fatigued since that time. she states that she has a general handling supervisor Dr. Steele at [facility] who did her mitral valve replacement. She does not recall having an echocardiogram done recently. She also has not seen her general handling supervisor in over a year. Workup in the hospital included a chest x-ray which showed right lower lobe atelectasis versus pneumonia with pleural effusion, underlying cardiac decompensation and pulmonary edema is not excluded. Previous imaging including a chest / abdomen/ pelvis CT on 11/09/2022 showed a chronic moderate size loculated right pleural effusion at that time. It was again Noted on the 02/18/2024 abdomen/pelvis CT which showed a chronic moderate size loculated right pleural effusion. She states she has a safe technician over at [facility] who she follows with. Her safe technician said that the loculated pleural effusion has been there for quite a number of years and will just continue to monitor it at this time. She did not have to get thoracentesis for this. She denies any fever, chills, nausea, vomiting, diarrhea, abdominal pain, chest pain. She does endorse shortness of breath and swelling from her hips down to her ankles. She states that the swelling has impaired her ability to walk without assistance. She states that she follows a relatively heart healthy diet however over the past few months she has been receiving food from a friend. EKG showing sinus rhythm with a rate of 81, QTC 460. Patient was given 40 mg of IV push Lasix while in the ED. She is being admitted to this setting for further diuresis and work up of her CHF. Review of Systems Review of Systems: All systems reviewed & are unremarkable except as noted in HPI and below PMFSH Past Medical History Medical History Anemia Rheumatoid arthritis GERD (gastroesophageal reflux disease) COPD exacerbation Congestive heart failure Depression Acute renal failure Calculus of gallbladder with chronic cholecystitis without obstruction Encounter for surgical aftercare following surgery of digestive system Incisional hernia without obstruction or gangrene Surgical History Surgical History Mitral valve replaced Family History Family History Other Diabetes mellitus Malignant neoplasm of prostate Social History Social History Smoking packs per day: 1 Smoking cigarettes per day: 20.0 Years smoked: 35 Smoking pack-years: 35.00 Smoking status: Former smoker Tobacco type: cigarettes Second hand tobacco smoke exposure: No Smoking end date: 07/05/24 Alcohol intake: never Drinks per week: 2 Substance use: never Substance use type: does not use Do You Feel Safe in your Home?: Yes Lack of Transportation: No Lack of Food: Never True Current Housing: I Have Housing Concerned About Future Housing: No Difficulty Paying Gas/Electric Bills: No Difficulty Paying for Meds: No Currently Unemployed: No Education: High School Diploma/GED Difficulty w/ Childcare or Family Care: No Living arrangements: alone Additional living arrangements comments: LOST SPOUSE A FEW MONTHS AGO (APR 2024), PT HAVING DIFFICULTY MAKING IT ON HER OWN, PT HAS FRIENDS CHECK ON HER, GETS SOB EASILY, WEAR MEDICAL ALERT NECKLACE, SON GIUSEPPE LIVES 20 MINUTES AWAY, SON VERY BUSY Gender identity (if verbalized by the patient): Female Sexual Orientation (if Verbalized by the Patient): Straight or Heterosexual Spiritual care concerns: No Meds Home Medications and Allergies Home Medications ?Medication ?Instructions ?Recorded ?Confirmed ?Type folic acid 1 mg tablet 1 mg PO DAILY 09/19/20 07/21/24 History methotrexate sodium 2.5 mg tablet 2.5 mg PO WEEKLY 09/19/20 07/21/24 History pantoprazole 40 mg tablet,delayed 40 mg PO DAILY 09/19/20 07/21/24 History release furosemide 40 mg tablet 40 mg PO BID #30 tabs 05/20/21 07/21/24 Rx cetirizine 5 mg tablet 5 mg PO DAILY 02/18/24 07/21/24 History duloxetine 20 mg capsule,delayed 20 mg PO DAILY 02/18/24 07/21/24 History release spironolactone 25 mg tablet 25 mg PO DAILY 02/18/24 07/21/24 History dicyclomine 20 mg tablet 20 mg PO DAILY 07/06/24 07/21/24 History omeprazole 40 mg capsule,delayed 40 mg PO DAILY 07/06/24 07/21/24 History release albuterol sulfate 90 mcg/actuation 2 puff inhalation Q4-6H PRN 07/17/24 07/21/24 History aerosol inhaler shortness of breath or wheezing Allergies Allergy/AdvReac Type Severity Reaction Status Date / Time nizatidine Allergy Severe Unknown Verified 07/17/24 13:44 Vital Signs Vital Signs - 24 hr 07/21/24 12:17 07/21/24 16:00 07/22/24 00:00 Temperature 97 F L 97.5 F L Pulse Rate 71 71 84 Respiratory Rate 18 18 16 Blood Pressure 138/65 Pulse Oximetry 95 95 92 Oxygen Delivery Room Air Room Air Room Air Exam Narrative: General: In no acute distress, well nourished Head: atraumatic, no encephalopathy Eyes: EOMI, PERRLA, sclera clear ENT: moist mucous membranes, nasal passages clear Neck: supple, no JVD, no adenopathy, trachea midline Cardiac: Normal S1 and S2. S3 present. No murmur, gallops or friction rubs, peripheral pulses intact. Respiratory: Lungs slightly coarse, no adventitious lung sounds, currently on room air Gastrointestinal: soft, non-distended, non-tender, normoactive bowel sounds. : voiding without difficulty. Extremities: moves all extremities well, extensive edema to both lower extrem ities-- she is noted to have swelling from her hips down to her ankles Skin: redness noted to left palm of hand and forearm-- history of rheumatoid arthritis Neuro: Alert and oriented x4, cranial nerves intact, no neuro deficits. Psych: tearful at times, interactive H&P: Results Imaging Chest x-ray: Radiologist's impression: XR chest 1V portable Ordering provider: Bradely Langley III, DO History: 74 years Female with . SOB X months, valve placement X 8 yrs ago . Comparison: April 21, 2024 FINDINGS: MEDIASTINUM: The cardiac silhouette is not enlarged. Postoperative changes in the mediastinum. Congestive vipul. LUNGS: No pneumothorax. Opacification in the right lower lobe with pleural effusion. Bilateral interstitial changes. OTHER: No free air under the diaphragm. IMPRESSION: Right lower lobe atelectasis versus pneumonia with pleural effusion. Underlying cardiac decompensation and pulmonary edema is not excluded. Reviewed, dictated and finalized at location A. ANICAL PRODUCT ENGINEER Assessment and Plan Assessment and plan (1) Acute exacerbation of chronic heart failure: Code(s): I50.9 - Heart failure, unspecified Status: Acute Assessment and Plan: patient presented with bilateral lower extremity edema from the hips down to the ankle, reporting shortness of breath with exertion * chest x-ray showing right lower lobe atelectasis versus pneumonia with pleural effusion, underlying cardiac decompensation and pulmonary edema is not excluded * pleural effusion appears to be chronic after review of EMR, she is noted to have a loculated right pleural effusion which is moderate. she is followed by a safe technician over at [facility] and has not received thoracentesis for this considering it is been there for years. * Continue diuresis with IV Lasix b.i.d. * will obtain an echo considering the significance of her swelling-- concerns for takotsubo cardiomyopathy versus worsening congestive heart failure. Patient recently buried her back in April of this year and has been feeling fatigued and worn down since that time. * Continue heart healthy diet * fluid restriction 1500 mL per day * continue spironolactone * continue to trend troponin, troponin on admission was 10.5 * proBNP 6494 * patient sees Dr. Steele over at [facility] who did her mitral valve replacement however she has not seen him in over a year and can not remember the last time she had an echocardiogram. There is no echocardiogram for review in our EMR. (2) GERD (gastroesophageal reflux disease): Code(s): K21.9 - Gastro-esophageal reflux disease without esophagitis Status: Acute Assessment and Plan: * continue Protonix (3) Anemia: Code(s): D64.9 - Anemia, unspecified Status: Acute Assessment and Plan: * hemoglobin 9.3-- appears to be ongoing since February of this year * will check vitamin B12, folic acid, ferritin, iron, TSH (4) Rheumatoid arthritis: Code(s): M06.9 - Rheumatoid arthritis, unspecified Status: Acute Assessment and Plan: * Currently on methotrexate however this is currently on hold due to it not being formulary-- however she only takes this weekly * she is followed by hydrate thickener operator at [facility] in [facility], Dr. Khan * patient has redness to her left hand and down her left forearm which is warm to the touch and tender to touch. she states that she often gets flare-ups in both hands * she is currently getting infusions at [facility] once a month. She is due for her next infusion this * will check ESR and CRP (5) Mitral valve replaced: Code(s): Z95.2 - Presence of prosthetic heart valve Status: Acute Assessment and Plan: * [address] Steele at [facility] (6) Depression: Code(s): F32.9 - Major depressive disorder, single episode, unspecified Status: Acute Assessment and Plan: * continue Cymbalta * recently buried her back in April of last year Quality VTE Prophylaxis VTE prophylaxis: pharmacologic ordered Hospitalist MIPS Advance Care Plan I have confirmed that the patient's Advanced Care Plan is present, code status is documented, or surrogate decision maker is listed in patient medical record.: Yes Medication Reconciliation I have utilized all available resources to obtain, update and review the patients current medications (includes all prescriptions, OTC, herbals, cannabis, and nutritional supplements).: Yes
[2024-07-22 08:00] VITALS: BP 116/52; PULSE 69; RESP 16; TEMP 36.3; O2SAT 93
--- NOTE | 2024-07-22 08:29 | P.HP_ITS ---
H&P: HPI History of Present Illness Date/Time: 07/22/24 08:29 Chief Complaint: Rehab Narrative: This is a 74 year old female with a significant past medical history of anemia, rheumatoid arthritis, GERD, COPD, CHF, depression, mitral valve replacement, former smoker who initially presented to [facility] on 07/17/24 for CHF exacerbation and weakness. While in the hospital, she received PT and OT who recommend continued rehab here at [facility]. She received diuresis with IV Lasix for her CHF and then was started on Lasix 40mg po BID. She denies any fever, chills, nausea, vomiting, diarrhea, abdominal pain, chest pain, or shortness of breath. She is being admitted in this setting for continued therapy. Review of Systems Review of Systems: All systems reviewed & are unremarkable except as noted in HPI and below Constitutional: Constitutional: Reports as per HPI and Reports no additional constitutional complaints Eyes: Eyes: Reports as per HPI and Reports no additional eye complaints ENT: Reports system reviewed and no additional complaints, except as documented and Reports as per HPI Cardiovascular: Cardiovascular: Reports as per HPI and Reports no additional cardiovascular complaints Respiratory: Respiratory: Reports as per HPI and Reports no additional respiratory complaints Gastrointestinal: Gastrointestinal: Reports as per HPI and Reports no additional gastrointestinal complaints Genitourinary: Genitourinary: Reports no additional female genitourinary complaints and Reports as per HPI Musculoskeletal: Musculoskeletal: Reports no additional musculoskeletal complaints and Reports as per HPI Integumentary/Breasts: Skin/Breast: Reports system reviewed and no additional complaints, except as docu and Reports as per HPI Neurologic: Reports system reviewed and no additional complaints, except as documented and Reports as per HPI Psychiatric: Psychiatric: Reports no additional psychiatric complaints and Reports as per HPI [facility] Past Medical History Medical History Anemia Rheumatoid arthritis GERD (gastroesophageal reflux disease) COPD exacerbation Congestive heart failure Depression Acute renal failure Calculus of gallbladder with chronic cholecystitis without obstruction Encounter for surgical aftercare following surgery of digestive system Incisional hernia without obstruction or gangrene Surgical History Surgical History Mitral valve replaced Family History Family History Other Diabetes mellitus Malignant neoplasm of prostate Social History Social History Smoking packs per day: 1 Smoking cigarettes per day: 20.0 Years smoked: 35 Smoking pack-years: 35.00 Smoking status: Former smoker Tobacco type: cigarettes Second hand tobacco smoke exposure: No Smoking end date: 07/05/24 Alcohol intake: never Drinks per week: 2 Substance use: never Substance use type: does not use Do You Feel Safe in your Home?: Yes Lack of Transportation: No Lack of Food: Never True Current Housing: I Have Housing Concerned About Future Housing: No Difficulty Paying Gas/Electric Bills: No Difficulty Paying for Meds: No Currently Unemployed: No Education: High School Diploma/GED Difficulty w/ Childcare or Family Care: No Living arrangements: alone Additional living arrangements comments: LOST SPOUSE A FEW MONTHS AGO (APR 2024), PT HAVING DIFFICULTY MAKING IT ON HER OWN, PT HAS FRIENDS CHECK ON HER, GETS SOB EASILY, WEAR MEDICAL ALERT NECKLACE, SON GIUSEPPE LIVES 20 MINUTES AWAY, SON VERY BUSY Gender identity (if verbalized by the patient): Female Sexual Orientation (if Verbalized by the Patient): Straight or Heterosexual Spiritual care concerns: No Meds Home Medications and Allergies Home Medications ?Medication ?Instructions ?Recorded ?Confirmed ?Type folic acid 1 mg tablet 1 mg PO DAILY 09/19/20 07/21/24 History methotrexate sodium 2.5 mg tablet 2.5 mg PO WEEKLY 09/19/20 07/21/24 History pantoprazole 40 mg tablet,delayed 40 mg PO DAILY 09/19/20 07/21/24 History release furosemide 40 mg tablet 40 mg PO BID #30 tabs 05/20/21 07/21/24 Rx cetirizine 5 mg tablet 5 mg PO DAILY 02/18/24 07/21/24 History duloxetine 20 mg capsule,delayed 20 mg PO DAILY 02/18/24 07/21/24 History release spironolactone 25 mg tablet 25 mg PO DAILY 02/18/24 07/21/24 History dicyclomine 20 mg tablet 20 mg PO DAILY 07/06/24 07/21/24 History omeprazole 40 mg capsule,delayed 40 mg PO DAILY 07/06/24 07/21/24 History release albuterol sulfate 90 mcg/actuation 2 puff inhalation Q4-6H PRN 07/17/24 07/21/24 History aerosol inhaler shortness of breath or wheezing Allergies Allergy/AdvReac Type Severity Reaction Status Date / Time nizatidine Allergy Severe Unknown Verified 07/17/24 13:44 Vital Signs Vital Signs - 24 hr 07/21/24 12:17 07/21/24 16:00 07/22/24 00:00 Temperature 97 F L 97.5 F L Pulse Rate 71 71 84 Respiratory Rate 18 18 16 Blood Pressure 138/65 Pulse Oximetry 95 95 92 Oxygen Delivery Room Air Room Air Room Air Exam Narrative: General: In no acute distress, well nourished Head: atraumatic, no encephalopathy Eyes: PERRLA, sclera clear ENT: moist mucous membranes, nasal passages clear Neck: supple, no JVD, no adenopathy, trachea midline Cardiac: Normal S1 and S2. No murmur, gallops or friction rubs, peripheral pul ses intact. Respiratory: Lungs clear to auscultation, no adventitious lung sounds, currently on room air Gastrointestinal: soft, non-distended, non-tender, normoactive bowel sounds. : voiding without difficulty. Extremities: moves all extremities well, bilateral lower extremity swelling improved with wraps Skin: clean, dry, intact. No wounds or lesions. Neuro: Alert and oriented x4, cranial nerves intact, no neuro deficits. Psych: normal mood, normal affect, interactive Assessment and Plan Assessment and plan (1) Physical deconditioning: Code(s): R53.81 - Other malaise Status: Acute Assessment and Plan: * Continue PT and OT * Will continue Lovenox daily for DVT prophylaxis (2) Congestive heart failure: Qualifiers: Heart failure chronicity: unspecified Heart failure type: unspecified Qualified Code(s): I50.9 - Heart failure, unspecified Code(s): I50.9 - Heart failure, unspecified Status: Acute Assessment and Plan: * CT shown pleural effusion appears to be chronic after review of EMR, she is noted to have a loculated right pleural effusion which is moderate. she is followed by a complaint clerk over at [facility] and has not received thoracentesis for this considering it is been there for years. * Continue 40 mg Lasix po BID * Continue heart healthy diet * fluid restriction 1500 mL per day * will increase spironolactone to 50 mg daily * patient sees Dr. Ivette james at [facility] who did her mitral valve replacement however she has not seen him in over a year. * Echo obtained and shown normal LV systolic function with an estimated EF of 55-60%, grade III diastolic dysfunction, bioprosthetic mitral valve, moderate to severe tricuspid valve regurgitation, severe pulmonary hypertension with an estimated pulmonary arterial systolic pressure of 70mmHg (3) GERD (gastroesophageal reflux disease): Code(s): K21.9 - Gastro-esophageal reflux disease without esophagitis Status: Acute Assessment and Plan: * continue Protonix (4) Rheumatoid arthritis: Code(s): M06.9 - Rheumatoid arthritis, unspecified Status: Acute Assessment and Plan: * Currently on methotrexate however this is currently on hold due to it not being formulary-- however she only takes this weekly * she is followed by core cutter and reamer at [facility] in [facility], Dr. Khan * she is currently getting infusions at [facility] once a month. Missed infusion this past (5) Depression: Code(s): F32.9 - Major depressive disorder, single episode, unspecified Status: Acute Assessment and Plan: * continue Cymbalta * recently buried her back in April of last year Quality VTE Prophylaxis VTE prophylaxis: pharmacologic ordered Hospitalist MIPS Advance Care Plan I have confirmed that the patient's Advanced Care Plan is present, code status is documented, or surrogate decision maker is listed in patient medical record.: Yes Medication Reconciliation I have utilized all available resources to obtain, update and review the patients current medications (includes all prescriptions, OTC, herbals, cannabis, and nutritional supplements).: Yes
[2024-07-22] MEDS: ACETAMINOPHEN 325 MG TABLET 650 MG PO (09:12)
[2024-07-22] MEDS: FUROSEMIDE 40 MG TABLET PO ×2 (09:13→17:38)
[2024-07-22] MEDS: SPIRONOLACTONE 25 MG TABLET PO (09:13)
[2024-07-22] MEDS: DICYCLOMINE HCL 10 MG CAPSULE 20 MG PO (09:13)
[2024-07-22] MEDS: FOLIC ACID 1 MG TABLET PO (09:13)
[2024-07-22] MEDS: DULoxetine HCL 20 MG CAPSULE.DR PO (09:14)
[2024-07-22] MEDS: PANTOPRAZOLE 40 MG TABLET PO (09:14)
[2024-07-22 16:00] VITALS: BP 124/62; PULSE 67; RESP 16; TEMP 36.3; O2SAT 93
[2024-07-22] MEDS: traZODone HCL 50 MG TABLET PO (20:40)
[2024-07-23] VITALS: BP 129/55; PULSE 70; RESP 19; TEMP 36.4; O2SAT 92
[2024-07-23 08:00] VITALS: BP 118/55; PULSE 69; RESP 16; TEMP 36.2; O2SAT 93
[2024-07-23] MEDS: ENOXAPARIN 40 MG/0.4 ML SYRINGE SUB-Q (09:09)
[2024-07-23] MEDS: DICYCLOMINE HCL 10 MG CAPSULE 20 MG PO (09:09)
[2024-07-23] MEDS: DULoxetine HCL 20 MG CAPSULE.DR PO (09:10)
[2024-07-23] MEDS: FUROSEMIDE 40 MG TABLET PO ×2 (09:10→18:01)
[2024-07-23] MEDS: SPIRONOLACTONE 25 MG TABLET 50 MG PO (09:10)
[2024-07-23] MEDS: PANTOPRAZOLE 40 MG TABLET PO (09:10)
[2024-07-23] MEDS: FOLIC ACID 1 MG TABLET PO (09:11)
[2024-07-23 16:00] VITALS: BP 124/54; PULSE 68; RESP 16; TEMP 36.3; O2SAT 92
[2024-07-23] MEDS: traZODone HCL 50 MG TABLET PO (21:12)
[2024-07-23] MEDS: hydrOXYzine HCL 25 MG TABLET PO (21:12)
[2024-07-24] VITALS: BP 128/63; PULSE 69; RESP 16; TEMP 36.4; O2SAT 96
[2024-07-24 08:00] VITALS: BP 114/57; PULSE 68; RESP 12; TEMP 36.6; O2SAT 92
[2024-07-24] MEDS: FOLIC ACID 1 MG TABLET PO (09:30)
[2024-07-24] MEDS: ENOXAPARIN 40 MG/0.4 ML SYRINGE SUB-Q (09:40)
[2024-07-24] MEDS: SPIRONOLACTONE 25 MG TABLET 50 MG PO (09:40)
[2024-07-24] MEDS: DICYCLOMINE HCL 10 MG CAPSULE 20 MG PO (09:41)
[2024-07-24] MEDS: FUROSEMIDE 40 MG TABLET PO ×2 (09:41→17:26)
[2024-07-24] MEDS: DULoxetine HCL 20 MG CAPSULE.DR PO (09:41)
[2024-07-24] MEDS: PANTOPRAZOLE 40 MG TABLET PO (09:41)
--- NOTE | 2024-07-24 09:44 | PC.NURSE ---
Fruit And Vegetable Packer Eval and Assessment recommends Regular Diet. No changes from current order and will remain on Heart Healthy per EVAPORATOR OPERATOR MOLASSES.
[2024-07-24 16:00] VITALS: BP 130/50; PULSE 66; RESP 16; TEMP 35.9; O2SAT 95
--- NOTE | 2024-07-24 18:23 | PC.NURSE ---
Patient up michela c
--- NOTE | 2024-07-24 18:23 | PC.NURSE ---
Patient up in chair watching TV. Denies pain. Ambulated to bathroom using gait belt, walker, and stand by assist. Patient observed to have had a moderate BM and urinated. Patient washed hands and was assisted to chair. Patient ate supper in chair. Call light and belongings within reach.
[2024-07-24] MEDS: traZODone HCL 50 MG TABLET PO (20:51)
--- NOTE | 2024-07-24 23:39 | PC.NURSE ---
Patient alert and oriented. Amb with gait belt and walker. Call light and belongings within reach.
[2024-07-25] VITALS: BP 116/47; PULSE 64; RESP 20; TEMP 35.9; O2SAT 93
[2024-07-25] MEDS: hydrOXYzine HCL 25 MG TABLET PO ×2 (00:18→20:38)
--- NOTE | 2024-07-25 00:25 | PC.NURSE ---
Pt up to the bathroom with the walker and standby assist of one. Pt voidedd 275 ml of clear, hema urine and returned to bed with the walker and assist of one. Pt c/o itching and was given hydroxyzine 25 mg PO to relieve itching. Lotion applied to pt's legs and hips and both legs were elevated on a pillow.
--- NOTE | 2024-07-25 02:10 | PC.NURSE ---
Pt asleep and no signs of itching or discomfort noted.
--- NOTE | 2024-07-25 02:14 | PC.NURSE ---
Pt asleep and no signs of itching or discomfort noted.
--- NOTE | 2024-07-25 04:20 | PC.NURSE ---
pt asleep and no signs of discomfort noted.
[2024-07-25 08:00] VITALS: BP 132/58; PULSE 68; RESP 14; TEMP 36.8; O2SAT 96
[2024-07-25] MEDS: ENOXAPARIN 40 MG/0.4 ML SYRINGE SUB-Q (09:36)
[2024-07-25] MEDS: DICYCLOMINE HCL 10 MG CAPSULE 20 MG PO (09:37)
[2024-07-25] MEDS: SPIRONOLACTONE 25 MG TABLET 50 MG PO (09:37)
[2024-07-25] MEDS: FOLIC ACID 1 MG TABLET PO (09:37)
[2024-07-25] MEDS: DULoxetine HCL 20 MG CAPSULE.DR PO (09:37)
[2024-07-25] MEDS: PANTOPRAZOLE 40 MG TABLET PO (09:37)
[2024-07-25] MEDS: FUROSEMIDE 40 MG TABLET PO ×2 (09:37→16:57)
[2024-07-25 16:00] VITALS: BP 139/60; PULSE 72; RESP 16; TEMP 36.1; O2SAT 94
[2024-07-25] MEDS: traZODone HCL 50 MG TABLET PO (20:38)
[2024-07-26] VITALS: BP 130/49; PULSE 82; RESP 20; TEMP 36.1; O2SAT 90
--- NOTE | 2024-07-26 00:05 | PC.NURSE ---
Pt up to the bathroom with the walker and standby assist of one. Pt voided and returned to bed with the walker and standby assist of one.
--- NOTE | 2024-07-26 02:17 | PC.NURSE ---
Pt asleep and no signs of discomfort noted.
--- NOTE | 2024-07-26 04:15 | PC.NURSE ---
Pt asleep and no signs of discomfort noted.
[2024-07-26 08:00] VITALS: BP 118/50; PULSE 67; RESP 18; TEMP 36.4; O2SAT 94
[2024-07-26] MEDS: SPIRONOLACTONE 25 MG TABLET 50 MG PO (08:13)
[2024-07-26] MEDS: DICYCLOMINE HCL 10 MG CAPSULE 20 MG PO (08:14)
[2024-07-26] MEDS: DULoxetine HCL 20 MG CAPSULE.DR PO (08:14)
[2024-07-26] MEDS: FOLIC ACID 1 MG TABLET PO (08:14)
[2024-07-26] MEDS: FUROSEMIDE 40 MG TABLET PO ×2 (08:15→16:46)
[2024-07-26] MEDS: ENOXAPARIN 40 MG/0.4 ML SYRINGE SUB-Q (08:15)
[2024-07-26] MEDS: PANTOPRAZOLE 40 MG TABLET PO (08:15)
[2024-07-26] MEDS: METHOTREXATE 2.5 MG TAB (*CHEMO) PO (09:19)
[2024-07-26] MEDS: hydrOXYzine HCL 25 MG TABLET PO ×2 (15:15→21:14)
[2024-07-26 15:53] VITALS: BP 115/47; PULSE 67; RESP 18; TEMP 36.3; O2SAT 92
[2024-07-26] MEDS: traZODone HCL 50 MG TABLET PO (21:14)
[2024-07-27] VITALS: BP 118/52; PULSE 66; RESP 20; TEMP 36; O2SAT 93
--- NOTE | 2024-07-27 00:11 | PC.NURSE ---
Pt up to the bathroom with the walker and standby assist of one. Pt voided and returned to bed with the walker and standby assist of one. Pt assisted with getting her legs back into bed and both legs were placed on a pillow.
--- NOTE | 2024-07-27 02:15 | PC.NURSE ---
Pt asleep and no signs of discomfort noted.
--- NOTE | 2024-07-27 04:20 | PC.NURSE ---
Pt asleep and no signs of discomfort noted; respirations are even and unlaabored.
--- NOTE | 2024-07-27 06:14 | PC.NURSE ---
Pt asleep and no signs of discomfort noted.
[2024-07-27 08:00] VITALS: BP 123/55; PULSE 66; RESP 16; TEMP 35.9; O2SAT 93
[2024-07-27] MEDS: ENOXAPARIN 40 MG/0.4 ML SYRINGE SUB-Q (08:38)
[2024-07-27] MEDS: DICYCLOMINE HCL 10 MG CAPSULE 20 MG PO (08:39)
[2024-07-27] MEDS: ACETAMINOPHEN 325 MG TABLET 650 MG PO (08:40)
[2024-07-27] MEDS: SPIRONOLACTONE 25 MG TABLET 50 MG PO (08:40)
[2024-07-27] MEDS: DULoxetine HCL 20 MG CAPSULE.DR PO (08:41)
[2024-07-27] MEDS: FOLIC ACID 1 MG TABLET PO (08:41)
[2024-07-27] MEDS: FUROSEMIDE 40 MG TABLET PO ×2 (08:42→16:46)
[2024-07-27] MEDS: PANTOPRAZOLE 40 MG TABLET PO (08:42)
[2024-07-27 16:00] VITALS: BP 119/50; PULSE 66; RESP 66; TEMP 36.4; O2SAT 93
[2024-07-27] MEDS: hydrOXYzine HCL 25 MG TABLET PO (20:23)
[2024-07-27] MEDS: traZODone HCL 50 MG TABLET PO (20:23)
--- NOTE | 2024-07-27 21:16 | PC.NURSE ---
Patient resting quietly in bed with TV on. SR up x2. Bed alarm on. Call light and belongings within reach. Fluid restrictions continue..
[2024-07-28] VITALS: BP 142/65; PULSE 83; RESP 16; TEMP 36.4; O2SAT 92
[2024-07-28 08:00] VITALS: BP 129/52; PULSE 66; RESP 16; TEMP 35.9; O2SAT 91
[2024-07-28] MEDS: ENOXAPARIN 40 MG/0.4 ML SYRINGE SUB-Q (08:10)
[2024-07-28] MEDS: ONDANSETRON HCL ODT 4 MG TABLET PO (08:11)
[2024-07-28] MEDS: SPIRONOLACTONE 25 MG TABLET 50 MG PO (08:13)
[2024-07-28] MEDS: DICYCLOMINE HCL 10 MG CAPSULE 20 MG PO (08:14)
[2024-07-28] MEDS: FOLIC ACID 1 MG TABLET PO (08:14)
[2024-07-28] MEDS: DULoxetine HCL 20 MG CAPSULE.DR PO (08:14)
[2024-07-28] MEDS: PANTOPRAZOLE 40 MG TABLET PO ×2 (08:14→21:30)
[2024-07-28] MEDS: FUROSEMIDE 40 MG TABLET PO ×2 (08:15→16:33)
--- NOTE | 2024-07-28 10:20 | PM.EVENT ---
Event Note Event Note Event Note: Patient states that she is nauseated and she seem so only in the morning. Once it leaves after medication or time she feels fine she informs me she has this clear foam like indigestion emesis that comes up . At this time we will order for some Protonix at bedtime to see if that helps her
[2024-07-28 16:00] VITALS: BP 124/57; PULSE 71; RESP 16; TEMP 36.8; O2SAT 92
[2024-07-28] MEDS: ACETAMINOPHEN 325 MG TABLET 650 MG PO (16:34)
[2024-07-28] MEDS: traZODone HCL 50 MG TABLET PO (21:30)
[2024-07-28] MEDS: hydrOXYzine HCL 25 MG TABLET PO (21:30)
[2024-07-28 23:36] VITALS: BP 120/59; PULSE 74; RESP 14; TEMP 36.3; O2SAT 89
[2024-07-29 08:00] VITALS: BP 119/54; PULSE 72; RESP 14; TEMP 36.5; O2SAT 92
[2024-07-29] MEDS: ENOXAPARIN 40 MG/0.4 ML SYRINGE SUB-Q (09:22)
[2024-07-29] MEDS: DICYCLOMINE HCL 10 MG CAPSULE 20 MG PO (09:22)
[2024-07-29] MEDS: SPIRONOLACTONE 25 MG TABLET 50 MG PO (09:22)
[2024-07-29] MEDS: FOLIC ACID 1 MG TABLET PO (09:22)
[2024-07-29] MEDS: FUROSEMIDE 40 MG TABLET PO ×2 (09:22→18:09)
[2024-07-29] MEDS: PANTOPRAZOLE 40 MG TABLET PO ×2 (09:23→21:32)
[2024-07-29] MEDS: DULoxetine HCL 20 MG CAPSULE.DR PO (09:23)
[2024-07-29] MEDS: ACETAMINOPHEN 325 MG TABLET 650 MG PO (13:40)
[2024-07-29] MEDS: hydrOXYzine HCL 25 MG TABLET PO ×2 (13:46→21:32)
[2024-07-29 16:30] VITALS: BP 109/62; PULSE 60; RESP 16; TEMP 36.4; O2SAT 96
[2024-07-29] MEDS: traZODone HCL 50 MG TABLET PO (21:32)
[2024-07-29] MEDS: HYDROCORTISONE 1% 30 GM CREAM 1 APPLIC TOPICAL (21:33)
[2024-07-30] VITALS: BP 120/56; PULSE 68; RESP 17; TEMP 36.3; O2SAT 90
[2024-07-30 08:30] VITALS: BP 125/57; PULSE 69; RESP 16; TEMP 36.3; O2SAT 91
--- NOTE | 2024-07-30 09:04 | P.PNIM_ITS ---
Progress Note: A&P Assessment and Plan (1) Physical deconditioning: Code(s): R53.81 - Other malaise Status: Acute Assessment and Plan: * Continue PT and OT * Will continue Lovenox daily for DVT prophylaxis (2) Congestive heart failure: Qualifiers: Heart failure chronicity: unspecified Heart failure type: unspecified Qualified Code(s): I50.9 - Heart failure, unspecified Code(s): I50.9 - Heart failure, unspecified Status: Acute Assessment and Plan: * CT shown pleural effusion appears to be chronic after review of EMR, she is noted to have a loculated right pleural effusion which is moderate. she is followed by a design lead over at [facility] and has not received thoracentesis for this considering it is been there for years. * Continue 40 mg Lasix po BID * Continue heart healthy diet * fluid restriction 1500 mL per day * will increase spironolactone to 50 mg daily * patient sees Dr. Steele over at [facility] who did her mitral valve replacement however she has not seen him in over a year. * Echo obtained and shown normal LV systolic function with an estimated EF of 55-60%, grade III diastolic dysfunction, bioprosthetic mitral valve, moderate to severe tricuspid valve regurgitation, severe pulmonary hypertension with an estimated pulmonary arterial systolic pressure of 70mmHg 07/30 * will lift fluid restriction to 2000 mL per day * continue heart healthy diet * will increase spironolactone to 75 mg daily * continue Lasix 40 mg b.i.d. (3) GERD (gastroesophageal reflux disease): Code(s): K21.9 - Gastro-esophageal reflux disease without esophagitis Status: Acute Assessment and Plan: * continue Protonix 07/30 * no change (4) Rheumatoid arthritis: Code(s): M06.9 - Rheumatoid arthritis, unspecified Status: Acute Assessment and Plan: * Currently on methotrexate however this is currently on hold due to it not being formulary-- however she only takes this weekly * she is followed by converter operator at [facility] in [facility], Dr. Khan * she is currently getting infusions at [facility] once a month. Missed infusion this past 07/30 * gets Orencia infusions monthly over at [facility], however she missed her infusion this month. * Orencia can be contributing to her lower extremity swelling (5) Depression: Code(s): F32.9 - Major depressive disorder, single episode, unspecified Status: Acute Assessment and Plan: * continue Cymbalta * recently buried her back in April of last year 07/30 * no change to current treatment plan Time Spent With Patient Time with patient: 25 - 35 minutes Subjective Date/time seen: 07/30/24 09:04 Interval history: Interval history: This is a 74 year old female with a significant past medical history of anemia, rheumatoid arthritis, GERD, COPD, CHF, depression, mitral valve replacement, former smoker who initially presented to [facility] on 07/17/24 for CHF exacerbation and weakness. While in the hospital, she received PT and OT who recommend continued rehab here at [facility]. She received diuresis with IV Lasix for her CHF and then was started on Lasix 40mg po BID. She denies any fever, chills, nausea, vomiting, diarrhea, abdominal pain, chest pain, or shortness of breath. She is being admitted in this setting for continued therapy. Subjective: patient denies any new complaints today. Labs reviewed. Review of Systems Review of Systems: All systems reviewed & are unremarkable except as noted in HPI and below Constitutional: Constitutional: Reports as per HPI and Reports no additional constitutional complaints Eyes: Eyes: Reports as per HPI and Reports no additional eye complaints ENT: Reports system reviewed and no additional complaints, except as documented and Reports as per HPI Cardiovascular: Cardiovascular: Reports as per HPI and Reports no additional cardiovascular complaints Respiratory: Respiratory: Reports as per HPI and Reports no additional respiratory complaints Gastrointestinal: Gastrointestinal: Reports as per HPI and Reports no additional gastrointestinal complaints Genitourinary: Genitourinary: Reports no additional female genitourinary complaints and Reports as per HPI Musculoskeletal: Musculoskeletal: Reports no additional musculoskeletal complaints and Reports as per HPI Integumentary/Breasts: Skin/Breast: Reports system reviewed and no additional complaints, except as docu and Reports as per HPI Neurologic: Reports system reviewed and no additional complaints, except as documented and Reports as per HPI Psychiatric: Psychiatric: Reports no additional psychiatric complaints and Reports as per HPI Exam Narrative: General: In no acute distress, well nourished Cardiac: Normal S1 and S2. No murmur, gallops or friction rubs, peripheral pulses intact. Respiratory: Lungs clear to auscultation, no adventitious lung sounds, currently on room air Gastrointestinal: soft, non-distended, non-tender, normoactive bowel sounds. : voiding without difficulty. Extremities: moves all extremities well, 1+ swelling to bilateral lower extremities Neuro: Alert and oriented x4 Objective Data Vital Signs Vital Signs: Vital Signs - 24 hr 07/29/24 16:30 07/30/24 00:00 Temperature 97.6 F 97.4 F L Pulse Rate 60 68 Respiratory Rate 16 17 Blood Pressure 109/62 120/56 L Pulse Oximetry 96 90 Oxygen Delivery Room Air Room Air Intake/Output Intake/Output: Intake & Output 07/27/24 07/28/24 07/29/24 07/30/24 23:59 23:59 23:59 23:59 Intake Total 1050 1050 1150 150 Balance 1050 1050 1150 150 Meds/Results Medications: Active Medications Generic Name Dose Route Start Last Admin Trade Name Freq PRN Reason Stop Dose Admin Acetaminophen 650 mg 07/21/24 12:17 07/29/24 13:40 Acetaminophen 325 Mg Tablet PO 650 mg Q4H PRN Administration Mild Pain (1-3) or Fever Albuterol 2 puff 07/21/24 12:19 Albuterol Sulfate (*Sp) Inhaler INHALATION Q4-6H PRN shortness of breath or wheezing Dicyclomine HCl 20 mg 07/22/24 09:00 07/29/24 09:22 Dicyclomine Hcl 10 Mg Capsule PO 20 mg DAILY LUCHO Administration Duloxetine HCl 20 mg 07/22/24 09:00 07/29/24 09:23 Duloxetine Hcl 20 Mg Capsule.Dr PO 20 mg DAILY LUCHO Administration Enoxaparin Sodium 40 mg 07/23/24 09:00 07/29/24 09:22 Enoxaparin 40 Mg/0.4 Ml Syringe SUB-Q 40 mg DAILY LUCHO Administration Folic Acid 1 mg 07/22/24 09:00 07/29/24 09:22 Folic Acid 1 Mg Tablet PO 1 mg DAILY LUCHO Administration Furosemide 40 mg 07/21/24 17:00 07/29/24 18:09 Furosemide 40 Mg Tablet PO 40 mg BID LUCHO Administration Hydrocortisone 1 applic 07/29/24 21:00 07/29/24 21:33 Hydrocortisone 1% 30 Gm Cream TOPICAL 1 applic Q12HR LUCHO Administration Hydroxyzine HCl 25 mg 07/23/24 20:28 07/29/24 21:32 Hydroxyzine Hcl 25 Mg Tablet PO 25 mg Q6H PRN Administration Itching Methotrexate 2.5 mg 07/26/24 09:00 07/26/24 09:19 Methotrexate 2.5 Mg Tab (*Chemo) PO 2.5 mg WEEKLY LUCHO Administration Ondansetron HCl 4 mg 07/21/24 12:17 07/28/24 08:11 Ondansetron Hcl Odt 4 Mg Tablet PO 4 mg Q6H PRN Administration Nausea And Vomiting Pantoprazole Sodium 40 mg 07/22/24 09:00 07/29/24 09:23 Pantoprazole 40 Mg Tablet PO 40 mg DAILY LUCHO Administration Pantoprazole Sodium 40 mg 07/28/24 21:00 07/29/24 21:32 Pantoprazole 40 Mg Tablet PO 40 mg QHS LUCHO Administration Spironolactone 50 mg 07/23/24 09:00 07/29/24 09:22 Spironolactone 25 Mg Tablet PO 50 mg DAILY LUCHO Administration Trazodone HCl 50 mg 07/21/24 21:00 07/29/24 21:32 Trazodone Hcl 50 Mg Tablet PO 50 mg HS LUCHO Administration Quality VTE Prophylaxis VTE prophylaxis: pharmacologic ordered
[2024-07-30] MEDS: ENOXAPARIN 40 MG/0.4 ML SYRINGE SUB-Q (09:30)
[2024-07-30] MEDS: DULoxetine HCL 20 MG CAPSULE.DR PO (09:30)
[2024-07-30] MEDS: FUROSEMIDE 40 MG TABLET PO ×2 (09:31→17:46)
[2024-07-30] MEDS: SPIRONOLACTONE 25 MG TABLET 50 MG PO (09:31)
[2024-07-30] MEDS: FOLIC ACID 1 MG TABLET PO (09:31)
[2024-07-30] MEDS: PANTOPRAZOLE 40 MG TABLET PO ×2 (09:31→21:56)
[2024-07-30] MEDS: HYDROCORTISONE 1% 30 GM CREAM 1 APPLIC TOPICAL ×2 (09:31→21:56)
[2024-07-30] MEDS: DICYCLOMINE HCL 10 MG CAPSULE 20 MG PO (09:31)
[2024-07-30 10:35] LABS: Basophils Absolute Auto 0.05 K/mm3 (0.00-0.10); Eosinophils Absolute Auto 0.19 K/mm3 (0.02-0.50); Eosinophils Percent Auto 3.8 % (1.0-6.0); Hemoglobin 9.1 g/dL (11.7-13.8); Immature Granulocyte Absolute 0.02 K/mm3 (0.00-0.00); Immature Granulocyte Percent A 0.4 % (0.0-0.0); Lymphocytes Absolute Auto 0.51 K/mm3 (1.10-4.50); Lymphocytes Percent Auto 10.3 % (18.0-42.0); Mean Corpuscular HGB Conc 29.4 g/dL (32-36); Mean Corpuscular Hemoglobin 26.5 pg (27.0-31.0); Mean Corpuscular Volume 90.1 fL (78.0-102.0); Mean Platelet Volume 10.3 fl (9.2-11.8); Monocytes Absolute Auto 0.36 K/mm3 (0.10-0.90); Monocytes Percent Auto 7.3 % (2.0-11.0); Neutrophils Absolute Auto 3.83 K/mm3 (1.70-7.20); Neutrophils Percent Auto 77.2 % (50.0-70.0); Platelet Count Result 136 K/mm3 (150-420); Red Blood Count 3.44 M/mm3 (4.20-5.40); Red Cell Distribution Width 21.7 % (11.6-14.4)
[2024-07-30 11:05] LABS: Alanine Aminotransferase 11 U/L (14-59); Albumin Level 3.1 g/dL (3.4-5.0); Alkaline Phosphatase 51 U/L (46-116); Anion Gap 6 mmol/L (4-12); Aspartate Amino Transferase < 10 U/L (15-37); Bilirubin,Total 1.1 mg/dL (0.00-1.00); Blood Urea Nitrogen 22 mg/dL (7-18); Calcium 8.9 mg/dL (8.5-10.1); Carbon Dioxide 32 mmol/L (21-32); Chloride 99 mmol/L (98-108); Estimated CRCL calculation 38 ml/min; Estimated Glomerular Filt Rate 37; Glucose 134 mg/dL (70-99); Osmolality Calculated 289 mOsm/kg (285-295); Potassium 3.4 mmol/L (3.5-5.1); Sodium 137 mmol/L (136-145); Total Protein 6.1 g/dL (6.4-8.2)
[2024-07-30 16:35] VITALS: BP 130/53; PULSE 68; RESP 16; TEMP 36.3; O2SAT 96
[2024-07-30] MEDS: hydrOXYzine HCL 25 MG TABLET PO (21:56)
[2024-07-30] MEDS: traZODone HCL 50 MG TABLET PO (21:56)
[2024-07-30] MEDS: ACETAMINOPHEN 325 MG TABLET 650 MG PO (21:58)
[2024-07-31] VITALS: BP 122/54; PULSE 66; RESP 16; TEMP 36.4; O2SAT 90
[2024-07-31 08:00] VITALS: BP 138/65; PULSE 82; RESP 16; TEMP 35.8; O2SAT 92
[2024-07-31] MEDS: HYDROCORTISONE 1% 30 GM CREAM 1 APPLIC TOPICAL ×2 (09:42→20:24)
[2024-07-31] MEDS: FUROSEMIDE 40 MG TABLET PO ×2 (09:44→17:12)
[2024-07-31] MEDS: ENOXAPARIN 40 MG/0.4 ML SYRINGE SUB-Q (09:44)
[2024-07-31] MEDS: DULoxetine HCL 20 MG CAPSULE.DR PO (09:44)
[2024-07-31] MEDS: FOLIC ACID 1 MG TABLET PO (09:44)
[2024-07-31] MEDS: DICYCLOMINE HCL 10 MG CAPSULE 20 MG PO (09:44)
[2024-07-31] MEDS: SPIRONOLACTONE 25 MG TABLET 75 MG PO (09:44)
[2024-07-31] MEDS: PANTOPRAZOLE 40 MG TABLET PO ×2 (09:44→20:24)
[2024-07-31 16:00] VITALS: BP 139/60; PULSE 74; RESP 18; TEMP 36.2; O2SAT 94
[2024-07-31 20:00] VITALS: PULSE 74; RESP 18; O2SAT 94
[2024-07-31] MEDS: traZODone HCL 50 MG TABLET PO (20:23)
[2024-07-31] MEDS: hydrOXYzine HCL 25 MG TABLET PO (20:24)
[2024-07-31 23:56] VITALS: BP 129/51; PULSE 71; RESP 16; TEMP 36.4; O2SAT 93
[2024-08-01] MEDS: ACETAMINOPHEN 325 MG TABLET 650 MG PO ×3 (00:42→23:05)
[2024-08-01 08:00] VITALS: BP 140/66; PULSE 78; RESP 18; TEMP 36.6; O2SAT 96
[2024-08-01] MEDS: DICYCLOMINE HCL 10 MG CAPSULE 20 MG PO (10:01)
[2024-08-01] MEDS: SPIRONOLACTONE 25 MG TABLET 75 MG PO (10:01)
[2024-08-01] MEDS: ENOXAPARIN 40 MG/0.4 ML SYRINGE SUB-Q (10:01)
[2024-08-01] MEDS: FOLIC ACID 1 MG TABLET PO (10:02)
[2024-08-01] MEDS: DULoxetine HCL 20 MG CAPSULE.DR PO (10:02)
[2024-08-01] MEDS: FUROSEMIDE 40 MG TABLET PO ×2 (10:02→16:56)
[2024-08-01] MEDS: PANTOPRAZOLE 40 MG TABLET PO ×2 (10:02→20:18)
[2024-08-01] MEDS: HYDROCORTISONE 1% 30 GM CREAM 1 APPLIC TOPICAL ×2 (10:03→20:19)
[2024-08-01 16:00] VITALS: BP 117/47; PULSE 63; RESP 16; TEMP 36.2; O2SAT 94
[2024-08-01] MEDS: BISACODYL 5 MG TABLET EC PO (16:56)
[2024-08-01 20:00] VITALS: PULSE 63; RESP 16; O2SAT 94
[2024-08-01] MEDS: traZODone HCL 50 MG TABLET PO (20:18)
[2024-08-01] MEDS: hydrOXYzine HCL 25 MG TABLET PO (20:19)
[2024-08-02] VITALS: BP 126/52; PULSE 70; RESP 16; TEMP 36.4; O2SAT 94
[2024-08-02 08:00] VITALS: BP 140/72; PULSE 84; RESP 18; TEMP 36.6; O2SAT 97
[2024-08-02] MEDS: ENOXAPARIN 40 MG/0.4 ML SYRINGE SUB-Q (09:35)
[2024-08-02] MEDS: SPIRONOLACTONE 25 MG TABLET 100 MG PO (09:36)
[2024-08-02] MEDS: FOLIC ACID 1 MG TABLET PO (09:37)
[2024-08-02] MEDS: PANTOPRAZOLE 40 MG TABLET PO ×2 (09:37→20:48)
[2024-08-02] MEDS: DICYCLOMINE HCL 10 MG CAPSULE 20 MG PO (09:37)
[2024-08-02] MEDS: DULoxetine HCL 20 MG CAPSULE.DR PO (09:37)
[2024-08-02] MEDS: FUROSEMIDE 40 MG TABLET PO ×2 (09:37→16:43)
[2024-08-02] MEDS: HYDROCORTISONE 1% 30 GM CREAM 1 APPLIC TOPICAL ×2 (09:38→20:47)
[2024-08-02] MEDS: METHOTREXATE 2.5 MG TAB (*CHEMO) PO (09:38)
[2024-08-02] MEDS: BISACODYL 5 MG TABLET EC PO (09:45)
[2024-08-02] MEDS: LACTULOSE 20 GM/30 ML UDC PO ×2 (12:19→16:42)
[2024-08-02] MEDS: ACETAMINOPHEN 325 MG TABLET 650 MG PO ×2 (15:33→20:48)
[2024-08-02 15:43] VITALS: BP 140/74; PULSE 84; RESP 18; TEMP 37.1; O2SAT 95
[2024-08-02] MEDS: traZODone HCL 50 MG TABLET PO (20:47)
[2024-08-02] MEDS: hydrOXYzine HCL 25 MG TABLET PO (20:48)
[2024-08-03] VITALS: BP 147/67; PULSE 80; RESP 16; TEMP 36.4; O2SAT 91
[2024-08-03 08:00] VITALS: BP 134/68; PULSE 84; RESP 16; TEMP 36.6; O2SAT 92
[2024-08-03] MEDS: SPIRONOLACTONE 25 MG TABLET 100 MG PO (09:25)
[2024-08-03] MEDS: ENOXAPARIN 40 MG/0.4 ML SYRINGE SUB-Q (09:25)
[2024-08-03] MEDS: LACTULOSE 20 GM/30 ML UDC PO ×2 (09:25→16:33)
[2024-08-03] MEDS: DULoxetine HCL 20 MG CAPSULE.DR PO (09:26)
[2024-08-03] MEDS: HYDROCORTISONE 1% 30 GM CREAM 1 APPLIC TOPICAL ×2 (09:26→21:59)
[2024-08-03] MEDS: FOLIC ACID 1 MG TABLET PO (09:26)
[2024-08-03] MEDS: DICYCLOMINE HCL 10 MG CAPSULE 20 MG PO (09:26)
[2024-08-03] MEDS: PANTOPRAZOLE 40 MG TABLET PO ×2 (09:26→21:59)
[2024-08-03] MEDS: FUROSEMIDE 40 MG TABLET PO ×2 (09:26→16:33)
[2024-08-03 16:00] VITALS: BP 124/48; PULSE 64; RESP 17; TEMP 36.3; O2SAT 91
[2024-08-03] MEDS: traZODone HCL 50 MG TABLET PO (21:59)
[2024-08-03] MEDS: hydrOXYzine HCL 25 MG TABLET PO (22:05)
[2024-08-03] MEDS: ACETAMINOPHEN 325 MG TABLET 650 MG PO (22:05)
[2024-08-04] VITALS: BP 147/72; PULSE 81; RESP 20; TEMP 36.4; O2SAT 90
[2024-08-04 08:00] VITALS: BP 112/47; PULSE 68; RESP 16; TEMP 35.9; O2SAT 91
[2024-08-04] MEDS: HYDROCORTISONE 1% 30 GM CREAM 1 APPLIC TOPICAL ×2 (08:00→20:17)
[2024-08-04] MEDS: SPIRONOLACTONE 25 MG TABLET 100 MG PO (08:15)
[2024-08-04] MEDS: DICYCLOMINE HCL 10 MG CAPSULE 20 MG PO (08:15)
[2024-08-04] MEDS: DULoxetine HCL 20 MG CAPSULE.DR PO (08:16)
[2024-08-04] MEDS: FUROSEMIDE 40 MG TABLET PO ×2 (08:16→16:50)
[2024-08-04] MEDS: PANTOPRAZOLE 40 MG TABLET PO ×2 (08:16→20:14)
[2024-08-04] MEDS: hydrOXYzine HCL 25 MG TABLET PO (08:16)
[2024-08-04] MEDS: FOLIC ACID 1 MG TABLET PO (08:16)
[2024-08-04] MEDS: LACTULOSE 20 GM/30 ML UDC PO ×2 (08:16→12:42)
[2024-08-04] MEDS: ENOXAPARIN 40 MG/0.4 ML SYRINGE SUB-Q (08:17)
[2024-08-04] MEDS: BISACODYL 5 MG TABLET EC PO (08:20)
[2024-08-04] MEDS: ACETAMINOPHEN 325 MG TABLET 650 MG PO (14:10)
[2024-08-04] MEDS: BISACODYL 10 MG SUPPOSITORY RECTAL (14:13)
[2024-08-04 16:00] VITALS: BP 127/48; PULSE 62; RESP 17; TEMP 36.3; O2SAT 93
[2024-08-04] MEDS: traZODone HCL 50 MG TABLET PO (20:14)
[2024-08-04 23:59] VITALS: BP 131/51; PULSE 67; RESP 16; TEMP 36.8; O2SAT 94
[2024-08-05] VITALS: BP 131/51; PULSE 67; RESP 16; TEMP 36.8; O2SAT 94
[2024-08-05] MEDS: ACETAMINOPHEN 325 MG TABLET 650 MG PO (01:50)
--- NOTE | 2024-08-05 08:06 | P.DS_ITS ---
DS: Admitting Diagnosis Discharge Date 08/05/2024 Admitting Diagnosis Rehabilitation DS: Discharge Diagnosis Discharge Diagnosis (1) Physical deconditioning: Code(s): R53.81 - Other malaise Status: Acute Assessment and Plan: * Continue PT and OT (2) Congestive heart failure: Qualifiers: Heart failure chronicity: unspecified Heart failure type: unspecified Qualified Code(s): I50.9 - Heart failure, unspecified Code(s): I50.9 - Heart failure, unspecified Status: Acute Assessment and Plan: * continue heart healthy diet * spironolactone 100mg daily * continue Lasix 40 mg b.i.d. * elevate bilateral lower extremities when at rest * encourage compression stockings or Denny wraps * low-sodium diet * follow-up with cardiology outpatient (3) GERD (gastroesophageal reflux disease): Code(s): K21.9 - Gastro-esophageal reflux disease without esophagitis Status: Acute Assessment and Plan: * continue omeprazole (4) Rheumatoid arthritis: Code(s): M06.9 - Rheumatoid arthritis, unspecified Status: Acute Assessment and Plan: * gets Orencia infusions monthly . * Orencia can be contributing to her lower extremity swelling * resume methotrexate (5) Depression: Code(s): F32.9 - Major depressive disorder, single episode, unspecified Status: Acute Assessment and Plan: * continue Cymbalta Plan disposition: Discharged to [facility] DS: Summary Hospital Course Reason for hospitalization: rehabilitation Hospital Course: This is a 74 year old female with a significant past medical history of anemia, rheumatoid arthritis, GERD, COPD, CHF, depression, mitral valve replacement, former smoker who initially presented to [facility] on 07/17/24 for CHF exacerbation and weakness. While in the hospital, she received PT and OT who recommend continued rehab here at [facility]. She received diuresis with IV Lasix for her CHF and then was started on Lasix 40mg po BID. She denies any fever, chills, nausea, vomiting, diarrhea, abdominal pain, chest pain, or shortness of breath. She is being admitted in this setting for continued therapy. Patient with overall improvement to strength and endurance during her rehab. She was cleared for discharge by physical and occuptaional therapy. Seen and assessed on day of discharge in no acute distress with no complaints she was discharge to a SNF for continued rehab and plans to go to an assisted living when applicable. Status at Discharge Functional status at discharge: uses cane/walker Overall status at discharge: patient is progressing back to baseline Time Spent with Patient Time attestation: Total time spent providing and/or coordinating discharge services: Time spent: Greater than 30 minutes Exam Narrative: General: In no acute distress, well nourished Cardiac: Normal S1 and S2. No murmur, gallops or friction rubs, peripheral pulses intact. Respiratory: Lungs clear to auscultation, no adventitious lung sounds, currently on room air Gastrointestinal: soft, non-distended, non-tender, normoactive bowel sounds. : voiding without difficulty. Extremities: moves all extremities well, 1+ swelling to bilateral lower extremities Neuro: Alert and oriented x4 Discharge Plan Discharge Attending physician on discharge: Juanjose Pedro Consulting providers: Latonia Khan; Matt Gagnon; Kaelyn Lucero Discharging Clinician: Kaelyn Lucero Anticipated Discharge Date/Time: 08/05/24 08:01 Patient Disposition: SNF Activity: may shower and as tolerated Diet: heart healthy Discharge Instructions: * Heart Healthy/low sodium diet * elevate lower Extremities when at rest * recommend compression stockings or Denny wrapping * follow-up with primary care physician Cardiology How can you care for yourself at home? ? Keep track of any new symptoms or changes in your symptoms. ? Rest until you feel better. ? Be safe with medicines. Take your medicines exactly as prescribed. Call your doctor if you think you are having a problem with your medicine. ? Do not drive after taking a prescription pain medicine. ? Ensure to follow-up with primary care physician as indicated and provide updated medication list provided to you at discharge. When should you call for help? Call 911 anytime you think you may need emergency care. For example, call if: ? You passed out (lost consciousness). Call your doctor now or seek immediate medical care if: ? You have new symptoms like fever, difficulty breathing, Chest pain, vomiting, or rash. ? You have new or different pain. ? You are confused and are having trouble thinking clearly. ? Your symptoms are getting worse. Watch closely for changes in your health, and be sure to contact your doctor if: ? You do not get better as expected. Patient Instructions: Antibiotic Form, Hydrocortisone (On the skin), Weakness (GEN), Fall Prevention (DC), Edema (DC) Patient Language: Urdu Stand Alone Forms: General Discharge Information, Senior Living Discharge Follow-up/Referrals: Dg Huerta MD [Primary Care Provider] - 4 Weeks Discharge Medications: New acetaminophen 325 mg Tablet 650 mg PO Q4H PRN (Reason: Mild Pain (1-3) Or Fever) Qty: 10 0RF trazodone 50 mg Tablet 50 mg PO HS Qty: 10 0RF hydrocortisone 1 % Cream 1 applic topical Q12HR Qty: 1 0RF hydroxyzine HCl 25 mg Tablet 25 mg PO Q6H PRN (Reason: Itching) Qty: 15 0RF bisacodyl [Laxative (bisacodyl)] 5 mg Tablet,Delayed Release (Dr/Ec) 5 mg PO DAILY PRN (Reason: Constipation) Qty: 10 0RF Continued methotrexate sodium 2.5 mg tablet 2.5 mg PO WEEKLY Rx Instructions: every wed. folic acid 1 mg tablet 1 mg PO DAILY furosemide 40 mg Tablet 40 mg PO BID Qty: 30 0RF Patient Comments: pt states takes once daily albuterol sulfate 90 mcg/actuation HFA aerosol inhaler 2 puff INHALATION Q4-6H PRN (Reason: shortness of breath or wheezing) cetirizine 5 mg Tablet 5 mg PO DAILY spironolactone 25 mg tablet 25 mg PO DAILY duloxetine 20 mg capsule,delayed release(DR/EC) 20 mg PO DAILY omeprazole 40 mg capsule,delayed release(DR/EC) 40 mg PO DAILY dicyclomine 20 mg tablet 20 mg PO DAILY Discontinued pantoprazole 40 mg tablet,delayed release (DR/EC) 40 mg PO DAILY Date of admission: 07/21/24 10:52 Primary Care Provider: Dg Huerta Admitting Provider: Juanjose Pedro Attending physician on admission: Kaelyn Lucero Condition: Improved Quality VTE Prophylaxis VTE prophylaxis: pharmacologic ordered -Patient's previous records reviewed on admission -ER notes reviewed in detail on admission -discussed all findings and current treatment plan with patient/Family/POA -Consultations reviewed for recommendations -Patient's disposition for safe discharge discussed with lead case manager Dictation performed by Meet[employer] direct speech recognition software, therefore supervisor inspection and testing variants and typographical errors may occur. Hospitalist MIPS Heart Failure (Exclusion) Patient has history of Heart Transplant or Left Ventricular Assistive Device?: No IF YES, STOP HERE Heart Failure (Qualifier) Patient has current or prior documentation of LVEF less than or equal to 40%, or mod/servere depressed LVSF?: No IF NO, STOP HERE
[2024-08-05] MEDS: DICYCLOMINE HCL 10 MG CAPSULE 20 MG PO (08:36)
[2024-08-05] MEDS: FOLIC ACID 1 MG TABLET PO (08:37)
[2024-08-05] MEDS: DULoxetine HCL 20 MG CAPSULE.DR PO (08:37)
[2024-08-05] MEDS: PANTOPRAZOLE 40 MG TABLET PO (08:37)
[2024-08-05] MEDS: FUROSEMIDE 40 MG TABLET PO (08:37)
[2024-08-05] MEDS: SPIRONOLACTONE 25 MG TABLET 100 MG PO (08:38)
--- NOTE | 2024-08-05 08:50 | PC.NURSE ---
Discharged to [facility] with family, reviewed dc instructions, faxed copy to [facility], no questions, patient alert and oriented x4 and agreeable to plan of care. son present and agreeable. personal items returned to patient
== END 2024-08-05 08:50 | DRG 948 ==
PROVIDERS: Nurse Practitioner Acute Care; Admitting Provider Internal Medicine; PCP Internal Medicine; Visit Provider Nurse Practitioner Family
DX: R53.81 Other malaise (principal); I50.9 Heart failure, unspecified; J44.9 Chronic obstructive pulmonary disease, unspecified; M06.9 Rheumatoid arthritis, unspecified; K21.9 Gastro-esophageal reflux disease without esophagitis; F32.A Depression, unspecified; Z09 Encounter for follow-up examination after completed treatment for conditions other than malignant neoplasm; Z95.2 Presence of prosthetic heart valve; Z87.891 Personal history of nicotine dependence
CPT/HCPCS: 36415; 80053; 85025; 97110; 97112; 97161; 97165; 97530; 97535; A9270; J1650

== ENCOUNTER 2024-09-28 07:13 | Outpatient (CLI) | payer MEDICARE, OTHER, SELFPAY ==
--- NOTE | ~2024-09-28 | XR_ITS ---
XR abdomen/kub 1V 09/28/2024 07:44 INDICATION: Flank pain TECHNIQUE: KUB COMPARISON: None FINDINGS: Bowel gas pattern is normal. There is no evidence of free air, mass, organomegaly, ascites or obstruction. No abnormal calculi are seen. There are pelvic phleboliths. The bones appear intact . There are surgical changes in the right pelvis. There is a left hip arthroplasty. Moderate colonic fecal loading. There is a right pleural effusion. IMPRESSION: 1: No acute abdominal abnormality identified. 2: Right pleural effusion. Reviewed, dictated and finalized at location A.
--- NOTE | ~2024-09-28 | CT_ITS ---
EXAMINATION: CT abdomen pelvis wo/w con DATE: 09/28/2024 08:01 INDICATION: Unspecified hydronephrosis TECHNIQUE: Computed tomography (CT) of the abdomen and pelvis was performed without intravenous contr ast. CT of the abdomen and pelvis was then performed with a total of 130 mL Omnipaque-350 intravenous contrast using a double-bolus technique for simultaneous opacification of the renal parenchyma and r enal collecting system. Automated exposure control and iterative reconstruction technique were employ ed. The dose-length product was 1239.86 mGy-cm. COMPARISON: 11/09/2022 FINDINGS: Mild emphysema. Again seen is a complex loculated right pleural effusion measuring 15.5 x 17.3 x 11.9 cm and occupying the inferior right hemithorax which depresses the right hemidiaphragm results in at electasis in the immediately adjacent basilar right middle and lower lobes. No knee effusion are a co uple enhancing nodules at the periphery of fluid collection along with several subtle internal septat ions which raises concern for malignant effusion. Heart size normal. Atherosclerotic coronary artery and dense mitral annular calcific lesions. Change of prior median sternotomy and mitral valve repair. Enlargement of the right main pulmonary artery consistent with pulmonary arterial hypertension. Cholecystectomy clips the gallbladder fossa. Splenomegaly measuring 15.3 cm length. Liver, pancreas, bilateral adrenal glands and kidneys are normal. No urolithiasis or hydronephrosis. No urothelial irr egularities identified along the contrast opacified portions of the bilateral renal collecting system s and ureters. Significant portion of the left ureter are decompressed and without discernible intral uminal contrast. Surgical clips near the tip the cecum consistent with prior appendectomy. Short segm ent of the transverse colon extends into a moderate-sized infraumbilical ventral hernia. There are ad ditional more cephalad and caudal small fat-containing ventral hernias. No bowel obstruction. Bladder , uterus and bilateral adnexa are unremarkable although evaluation of portions of the bladder is limi vick by metallic streak artifact from a left total hip arthroplasty. No free intraperitoneal gas or fl uid. No pathologically enlarged abdominal or pelvic lymphadenopathy. Severe lower lumbar spondylosis. IMPRESSION: 1. No urolithiasis, hydronephrosis or other acute intra-abdominal/pelvic process. 2. Chronic moderate-sized complex loculated right pleural effusion with peripheral enhancing nodules which raises concern for malignant effusion. This is not been previously worked up would recommend di agnostic thoracentesis. 3. Chronic infraumbilical ventral hernia containing a segment of nonobstructed transverse colon. 4. Additional smaller fat-containing ventral hernias. 5. Enlargement of the right main pulmonary artery consistent with pulmonary arterial hypertension. Reviewed, dictated and finalized at location B. IMPRESSION: 1. No urolithiasis, hydronephrosis or other acute intra-abdominal/pelvic proces s. 2. Chronic moderate-sized complex loculated right pleural effusion with periphe ral enhancing nodules which raises concern for malignant effusion. This is not been previously worked up would recommend diagnostic thoracentesis. 3. Chronic infraumbilical ventral hernia containing a segment of nonobstructed transverse colon. 4. Additional smaller fat-containing ventral hernias. 5. Enlargement of the right main pulmonary artery consistent with pulmonary art erial hypertension.
--- OUTSIDE RECORDS SUMMARY | 2024-09-28 07:17 | XMS_ITS | Patient Health Record ---
Author Organization [facility] denae Address [address] [place] [address] Care Team Providers Care Radio Division Officer Name Role Phone Deanna FRANZ, Dg Primary Care Provider Unavaila keaton Watkins, Eleazar Unavailable [phone] June FRANZ, Eleazar Unavailable Unavailabl mecca Cancino, [place] Unavailable [phone] Godefroid, Carli Unavailable [phone] Allergies No Known Allergies Results Component Value Reference Range Notes CBC w auto diff Reviewed date:05/04/2024 01:33:40 PM Interpretation: Performing Lab:[facility] , [address] [facility] [facility] [address] Notes/Report: WBC 7.0 3.8-9.9 K/cumm Hgb 10.6 11.9-15.5 g/dL Hct 35.5 35.6-45.5 % Platelet Ct 174 150-400 K/cumm MPV 10.8 9.1-12.3 fL RBC 3.87 3.90-5.20 M/cumm MCV 91.7 81.3-96.4 fL MCH 27.4 27.1-33.3 pg MCHC 29.9 32.3-35.7 g/dL RDW CV 19.5 11.1-14.9 % RDW SD 64.3 35.7-48.1 fL NRBC Abs Auto 0.00 0.00-0.01 K/cumm Creatinine Reviewed date:05/04/2024 06:33:10 AM Interpretation: Performing Lab:[facility] , [address] [facility] [place] [address] Notes/Report: Creatinine 0.88 0.60-1.10 mg/dL Hep Func Panel Reviewed date:05/04/2024 06:32:49 AM Interpretation: Performing Lab:[facility] , [address] [place] [address]. [facility] [address] Notes/Report: Total Bilirubin 0.9 0.1-1.2 mg/dL Bilirubin, Direct 0.4 0.1-0.3 mg/dL Plasma Total Protein 6.9 6.5-8.5 g/dL Albumin 4.3 3.5-5.0 g/dL Alkaline Phosphatase 46 40-130 Units/L ALT 14 7-45 Units/L AST 19 10-45 Units/L Differential Automated Reviewed date:05/04/2024 06:34:12 AM Interpretation: Performing Lab:[facility] , [facility]. [facility] [address] Notes/Report: Neut Abs 5.4 1.5-6.5 K/cumm ImmGran Abs 0.0 0.0-0.1 K/cumm Lymphocyte Abs 0.8 0.8-3.3 K/cumm Kaufman Abs 0.6 0.2-0.8 K/cumm Eos Abs 0.2 0.0-0.5 K/cumm Baso Abs 0.1 0.0-0.1 K/cumm Neut Pct 76.7 Interpretive Data Percent cell count reference ranges are not reported, since discordance with absolute values may lead to misinterpretation of CBC data. Current Interpretive Data was last revised on 2017. ImmGran Pct 0.3 Interpretive Data Percent cell count reference ranges are not reported, since discordance with absolute values may lead to misinterpretation of CBC data. Current Interpretive Data was last revised on 2017. Lymph Pct 11.5 Interpretive Data Percent cell count reference ranges are not reported, since discordance with absolute values may lead to misinterpretation of CBC data. Current Interpretive Data was last revised on 2017. Kaufman Pct 8.3 Interpretive Data Percent cell count reference ranges are not reported, since discordance with absolute values may lead to misinterpretation of CBC data. Current Interpretive Data was last revised on 2017. Eos Pct 2.3 Interpretive Data Percent cell count reference ranges are not reported, since discordance with absolute values may lead to misinterpretation of CBC data. Current Interpretive Data was last revised on 2017. Baso Pct 0.9 Interpretive Data Percent cell count reference ranges are not reported, since discordance with absolute values may lead to misinterpretation of CBC data. Current Interpretive Data was last revised on 2017. eGFR Reviewed date:09/15/2024 08:18:54 AM Interpretation: Performing Lab:[facility] , [address] [place] [address]. [place] [address] Notes/Report: eGFR 39 >=60 mL/min/1.73 m2 Interpretive Data Reference Interval Normal >/= 90 mL/min/1.73m2 Mildly decreased* 60 - 89 mL/min/1.73m2 Mildly to moderately decreased 45 - 59 mL/min/1.73m2 Moderately to severely decreased 30 - 44 mL/min/1.73m2 Severely decreased 15 - 29 mL/min/1.73m2 Kidney Failure < 15 mL/min/1.73m2 *Relative to young adult level Estimated glomerular filtration rate is determined by the 2020 CKD-EPI equation recommended by the National Kid[employer] (A Unifying Approach to GFR Estimation: Recommendations of the NKF-ASK Task Force on Reassessing the Inclusion of Race in Diagnosing Kidney Disease, JASN 2020). The CKD-EPI equation should not be used for patients with unstable renal function and has not been validated in children and those over 70. Current interpretive data was last reviewed 2021. eGFR Reviewed date:05/04/2024 06:34:34 AM Interpretation: Performing Lab:[facility] , [address] [place] [address]. [place] [address] Notes/Report: eGFR 70 >=60 mL/min/1.73 m2 Interpretive Data Reference Interval Normal >/= 90 mL/min/1.73m2 Mildly decreased* 60 - 89 mL/min/1.73m2 Mildly to moderately decreased 45 - 59 mL/min/1.73m2 Moderately to severely decreased 30 - 44 mL/min/1.73m2 Severely decreased 15 - 29 mL/min/1.73m2 Kidney Failure < 15 mL/min/1.73m2 *Relative to young adult level Estimated glomerular filtration rate is determined by the 2020 CKD-EPI equation recommended by the National Kidney Foundation (A Unifying Approach to GFR Estimation: Recommendations of the NKF-ASK Task Force on Reassessing the Inclusion of Race in Diagnosing Kidney Disease, JASN 2020). The CKD-EPI equation should not be used for patients with unstable renal function and has not been validated in children and those over 70. Current interpretive data was last reviewed 2021. Hep Func Panel Reviewed date:09/15/2024 08:17:45 AM Interpretation: Performing Lab:[facility] , [address] [place] [address]. [facility] [address] Notes/Report: Total Bilirubin 1.0 0.1-1.2 mg/dL Bilirubin, Direct 0.5 0.1-0.3 mg/dL Plasma Total Protein 8.1 6.5-8.5 g/dL Albumin 4.2 3.5-5.0 g/dL Alkaline Phosphatase 58 40-130 Units/L ALT 12 7-45 Units/L AST 27 10-45 Units/L Creatinine Reviewed date:09/15/2024 08:33:23 AM Interpretation: Performing Lab:[facility] , [address] [place] [address]. [facility] [address] Notes/Report: Creatinine 1.43 0.60-1.10 mg/dL CBC w auto diff Reviewed date:09/15/2024 08:17:59 AM Interpretation: Performing Lab:[facility] , [address] [place] [address]. [facility] [address] Notes/Report: WBC 10.1 3.8-9.9 K/cumm Hgb 13.9 11.9-15.5 g/dL Hct 42.2 35.6-45.5 % Platelet Ct 287 150-400 K/cumm MPV 10.2 9.1-12.3 fL RBC 4.95 3.90-5.20 M/cumm MCV 85.3 81.3-96.4 fL MCH 28.1 27.1-33.3 pg MCHC 32.9 32.3-35.7 g/dL RDW CV 16.2 11.1-14.9 % RDW SD 48.8 35.7-48.1 fL NRBC Abs Auto 0.00 0.00-0.01 K/cumm Differential Automated Reviewed date:09/15/2024 08:18:48 AM Interpretation: Performing Lab:[facility] , [address] [facility] [address] Notes/Report: Neut Abs 7.7 1.5-6.5 K/cumm ImmGran Abs 0.1 0.0-0.1 K/cumm Lymphocyte Abs 1.3 0.8-3.3 K/cumm Kaufman Abs 0.8 0.2-0.8 K/cumm Eos Abs 0.2 0.0-0.5 K/cumm Baso Abs 0.1 0.0-0.1 K/cumm Neut Pct 76.3 Interpretive Data Percent cell count reference ranges are not reported, since discordance with absolute values may lead to misinterpretation of CBC data. Current Interpretive Data was last revised on 2017. ImmGran Pct 0.5 Interpretive Data Percent cell count reference ranges are not reported, since discordance with absolute values may lead to misinterpretation of CBC data. Current Interpretive Data was last revised on 2017. Lymph Pct 12.5 Interpretive Data Percent cell count reference ranges are not reported, since discordance with absolute values may lead to misinterpretation of CBC data. Current Interpretive Data was last revised on 2017. Kaufman Pct 8.3 Interpretive Data Percent cell count reference ranges are not reported, since discordance with absolute values may lead to misinterpretation of CBC data. Current Interpretive Data was last revised on 2017. Eos Pct 1.6 Interpretive Data Percent cell count reference ranges are not reported, since discordance with absolute values may lead to misinterpretation of CBC data. Current Interpretive Data was last revised on 2017. Baso Pct 0.8 Interpretive Data Percent cell count reference ranges are not reported, since discordance with absolute values may lead to misinterpretation of CBC data. Current Interpretive Data was last revised on 2017. Reason For Referral Reason -Physical Therapy Pr escription- -Treatment Increase Range of motion Improve Gait Myofascial Release/soft tisue treatments; [place]/ [facility]/[place] Therapeutic Exercises Modalities prn Instruct in Home exercise program Diagnosis 1 Iliotibial band synd dax, right leg (M76.31) Referral Organization [facility] ender Referring Provider First Name [place] Referring Provider Last Name Julita Referring Provider Speciality Physical Tonia kovacsicine Referred Provider Nam Saunders PT Referred Provider Specialty Physical The rapist Referral Priority Routine Reason Continue therapy act ivities, 5-6 visits. Progress to independent home exercise program Myofascial Release/soft tisue treatments; [place]/ [facility]/[place] Lidex cream to area with ultrasound Diagnosis 1 Iliotibial band synd dax, right leg (M76.31) Referral Organization [facility] ender Referring Provider First Name Carli Referring Provider Last Name Simeon Referring Provider Speciality Nurse Jagruti cotto Referred Provider Nam Saunders PT Referred Provider Specialty Physical The rapist Referral Priority Routine Reason 09.08.2024 Orencia M edicare/Local 520-NO PA REQURIED per [id number] Diagnosis 1 Other specified rheu matoid arthritis, multiple sites (M06.89) Referral Organization [facility] ender Referring Provider First Name Eleazar Referring Provider Last Name June Referring Provider Speciality Rheumatolo gy Referred Organization [facility] ender Referred Provider Eleazar Watkins Referred Address [address] [facility] [address],[place], [place],[address], Referred Provider Specialty Rheumatology Procedure 1 ABATACEPT INJECTION (J0129) Referral Priority Routine Medications Medication SIG (Take, Route, Frequency, Duration) Notes Start Date End Date Status Orencia 250 mg infuse 1,000 mg over 30 minute(s) by intravenous route every 4 weeks Intravenous [id number] 08/14/2020 Active Pantoprazole Sodium 40 MG take 1 tablet (40 mg) by oral route once daily Oral 1 Active Spironolactone-HCTZ 25-25 mg take 1 tablet by oral route once daily Oral 1 Active Folic Acid 1 MG TAKE 1 TABLET ONE TI ME DAILY for 90 Active Problems Problem Type SNOMED Code ICD Code Onset Dates Problem Status W/U Status Risk Notes Problem Rheumatoid arthritis (23044540) Rheumatoid arthritis without rheumatoid factor, unspecified site (M06.00) Active confirmed Problem [id number] Other specified rheumatoid arthritis, multiple sites (M06.89) Active confirmed Problem Rheumatoid arthritis (92375396) Rheumatoid arthritis, unspecified (M06.9) Active confirmed Vital Signs Heart Rate 75 /min 09/14/2024 Temperature 97.2 degrees Fahrenheit 09/14/2024 Oximetry 98 % 05/03/2024 Height-cm 177.80 cm 09/14/2024 Blood pressure diastolic 67 mm Hg 09/14/2024 Weight-kg 72.12 kg 09/14/2024 Height 70 in 09/14/2024 Blood pressure systolic 112 mm Hg 09/14/2024 Weight 159.0 lbs 09/14/2024 BMI 22.81 kg/m2 09/14/2024 Encounters Encounter Location Date Provider Diagnosis [facility] [address] [place] [address] 10/20/2023 Eleazar DiValerio Other specified rheumatoid arthritis, multiple sites M06.89 and Rheumatoid arthritis without rheumatoid factor, unspecified site M06.00 [facility] [address] [place] [address] 11/17/2023 Eleazar DiValerio Other specified rheumatoid arthritis, multiple sites M06.89 and Rheumatoid arthritis without rheumatoid factor, unspecified site M06.00 [facility] [address] [place] [address] 12/16/2023 Eleazar DiValerio Other specified rheumatoid arthritis, multiple sites M06.89 [facility] [address] [place] [address] 01/13/2024 Eleazar DiValerio Other specified rheumatoid arthritis, multiple sites M06.89 [facility] [address] [place] [address] 03/01/2024 Eleazar DiValerio Other specified rheumatoid arthritis, multiple sites M06.89 [facility] [address] [place] [address] 05/03/2024 Eleazar DiValerio Other specified rheumatoid arthritis, multiple sites M06.89 [facility] [address] [place] [address] 05/03/2024 [place] Cancino Iliotibial band syndrome, right leg M76.31 [facility] [address] [place] [address] 05/25/2024 Carli Hendrix [facility] [address] [place] [address] 05/31/2024 Eleazar DiValerio Other specified rheumatoid arthritis, multiple sites M06.89 [facility] [address] [place] [address] 06/08/2024 Carli Godgauravroid [facility] [address] [place] [address] 06/08/2024 Carli Hendrix Other specified rheumatoid arthritis, multiple sites M06.89 and Iliotibial band syndrome, right leg M76.31 [facility] [address] [place] [address] 09/14/2024 Eleazar Watkins Other specified rheumatoid arthritis, multiple sites M06.89 [facility] [address] [place] [address] 05/29/2024 [facility] [address] [place] [address] 07/14/2024 [facility] [address] [place] [address] 09/04/2024 [facility] [address] [place] [address] 09/14/2024 [facility] [address] [place] [address] 09/15/2024 Eleazar Mariahron Assessments Encounter Date Diagnosis (ICD Code) Assessment Notes Treatment Notes Treatment Clinical Notes Section Notes 11/17/2023 Other specified rheumatoid arthritis, multiple sites (ICD-10 - M06.89) 12/16/2023 Other specified rheumatoid arthritis, multiple sites (ICD-10 - M06.89) 01/13/2024 Other specified rheumatoid arthritis, multiple sites (ICD-10 - M06.89) 03/01/2024 Other specified rheumatoid arthritis, multiple sites (ICD-10 - M06.89) 05/03/2024 Other specified rheumatoid arthritis, multiple sites (ICD-10 - M06.89) 05/03/2024 Iliotibial band syndrome, right leg (ICD-10 - M76.31) 05/31/2024 Other specified rheumatoid arthritis, multiple sites (ICD-10 - M06.89) 06/08/2024 Other specified rheumatoid arthritis, multiple sites (ICD-10 - M06.89) The patientt was evaluated and appears to be a good candidate for continued physical therapy with the goal to progress to a fully independent home exercise program. A new order was complted 10/20/2023 Other specified rheumatoid arthritis, multiple sites (ICD-10 - M06.89) 09/14/2024 Other specified rheumatoid arthritis, multiple sites (ICD-10 - M06.89) 11/17/2023 Rheumatoid arthritis without rheumatoid factor, unspecified site (ICD-10 - M06.00) 06/08/2024 Iliotibial band syndrome, right leg (ICD-10 - M76.31) 10/20/2023 Rheumatoid arthritis without rheumatoid factor, unspecified site (ICD-10 - M06.00) 03/29/2024 Other Plan Of Treatment Pending Test Test Name Order Date CBC With Differential/Platelet Hepatic Function Panel (7) 12/16/2023 Hepatic Function Panel (7) 10/20/2023 CBC 10/20/2023 Creatinine 10/20/2023 Creatinine 12/16/2023 Quantiferon Gold 12/16/2023 Next Appt Details Provider Name:Eleazar spaulding, 10/12/2024 02:00:00 PM, [address], [address], [place], [address], Provider Name:Eleazar spaulding, 11/09/2024 02:00:00 PM, [address], [address], [place], [address], Provider Name:Eleazar Mcdaniel chelly, 12/07/2024 02:00:00 PM, [address], [address], [place], [address], Insurance Providers Payer Name Payer Address Payer Phone Subscriber Number Group Number Insured Name Patient Relationship to Insured Coverage Start Date Coverage End Date Medicare [address] [address] [place] [address] [id number] Ariadne Okeefe Self - patient is the insured [address] [id number] Ariadne Okeefe Self - patient is the insured Medical (General) History Medical History History ICD Code Arthritis; Joint pain; Surgical History Surgery Date(Month/Year) Hip surgery; 2020-08-14 Wrist surgery; 2020-08-14 heart valve; 2020-08-14 Fallopian tube; 2020-08-14
--- OUTSIDE RECORDS SUMMARY | 2024-09-28 07:18 | XMS_ITS ---
Author Organization [facility] denae Address [address] [place] [address] Care Team Providers Care Stove Carriage Operator Name Role Phone Deanna FRANZ, [facility] Primary Care Provider Eleazar Butcher Unavailable [phone] Eleazar Watkins MD Unavailabl e REASON FOR VISIT pharmacy Encounters Encounter Location Date Provider Diagnosis [facility] [address] [place] [address] 09/14/2024 Eleazar Watkins Plan Of Treatment Next Appt Details Provider Name:Eleazar spaulding, 10/12/2024 02:00:00 PM, [address], [address], [place], [address], Provider Name:Eleazar spaulding, 11/09/2024 02:00:00 PM, [address], [address], [place], [address], Provider Name:Eleazar spaulding, 12/07/2024 02:00:00 PM, [address], [address], [place], [address], Progress Notes * Ariadne CAGE KDOB:1949 (74 yo F)Acc No.[id number]:09/14/2024 Patient: Miranda ARANAnda Iris :1950 A ge:74 Y S ex:Female Address:[address] [place] [address], [place] [address], [place], [address] * true * Date: Generated for Gary gaines/Brandie/Antonioitting on: 0 09/28/2024 07:17 AM CDT
--- OUTSIDE RECORDS SUMMARY | 2024-09-28 07:18 | XMS_ITS | Data Portability ---
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 Labs on 08/10 -- BMP and Mag. Nursing to request home medication list from PCP and fax to our office for review. Waiting on more records from [facility]. Not available 08/08/2024 09:49:40 08/09/2024 08/09/2024 increase mtx to 7.5 mg weekly dulcolax suppository 10 mg ID daily prn labs are ordered for AM [email or web address] Not available 08/14/2024 05:09:59 08/11/2024 08/11/2024 Monitor for need for Metolazone burst. Not available 08/14/2024 09:59:39 08/15/2024 08/15/2024 Change Dicyclomine to PRN. Labs in AM. [email or web address] Not available 08/15/2024 15:11:10 08/18/2024 08/18/2024 Pt will d/c to [facility] on 08/21 with [facility]. Recommend f/u with Dr. Xavier Frederick (cards) as OP given recent CHF exacerbation. Will also need f/u with Dr. Khan (rheum) to resume monthly Orencia infusions. Not available 08/18/2024 18:39:10 Plan of Treatment Reminders Order Date Submit Date Provider Last Modified By Organization Details Last Modified Time Details Appointments None record ed. Lab None record ed. Referral None record ed. Procedures None record ed. Surgeries None record ed. Imaging None record ed. Medication Orders None record ed. Patient TargetsNo targets recorded. Patient Instructions Encounter Date Encounter Id Patient Instructions Last Modified By Organization Details Last Modified Time 08/07/2024 [id number] I spent {{ 60#}} minutes providing care to the patient today. More than 50% of that time was spent in discussing the expected course of the disease, discussing prognosis, coordinating care and counseling of the patient/family. Not available 08/08/2024 09:48:57 08/09/2024 [id number] I spent {{ >50#} } minutes providing care to the patient today. More than 50% of that time was spent in discussing the expected course of the disease, discussing prognosis, coordinating care and counseling of the patient/family. I spent {{16* 17 18 19 20 21 22 23 24 25}} minutes counseling and discussing advance directives and/or end of life care planning and decisions with the {{patient* surrog ate patient and surrogate}} today. I reviewed the current relevant diagnoses, treatment options, natural history, and prognosis and clarified the patient's goals of care. code status is DNR [email or web address] Not available 08/14/2024 00:13:55 08/11/2024 [id number] I spent {{ 34#}} minutes providing care to the patient today. More than 50% of that time was spent in discussing the expected course of the disease, discussing prognosis, coordinating care and counseling of the patient/family. Not available 08/14/2024 10:01:44 08/15/2024 [id number] I spent {{ 36#}} minutes providing care to the patient today. More than 50% of that time was spent in discussing the expected course of the disease, discussing prognosis, coordinating care and counseling of the patient/family. [email or web address] Not available 08/15/2024 15:11:35 08/18/2024 [id number] I spent {{ 40#}} minutes providing care to the patient today. More than 50% of that time was spent in discussing the expected course of the disease, discussing prognosis, coordinating care and counseling of the patient/family. The patient will be discharged home with home health orders of home health RN / PT / OT to evaluate and treat. The patient is homebound because of {{gait instability poor balance fall risk* respiratory difficulties cogn itive impairment disori entation severe pain wounds}} and is unable to leave home safely because {{requires use of an assistive device and assistance of another person to leave home requires considerable and taxing effort to leave home* of cognitive impairment}}. The patient requires home health nursing for instruction, observation and assessment; PT for training to restore safe independent functional ambulation in community; and OT for training to improve ability to fulfill ADLs. Please follow-up with your primary care provider within 1 week. Call your primary care provider for instructions or go to the emergency room for new or worsening symptoms. [email or web address] Not available 08/18/2024 18:39:49 Reason for Referral None Reported. Results Created Date Observation Date Name Description Value Unit Range Abnormal Flag Note LastModifiedBy Organization Detail LastModifiedTime 08/08/1908/08/2024 XR, ribs, unila teral No observ ation record ed. [facility] [address] [place], [address], 08/08/2024 21:14:11 08/15/19 25 08/15/2024 XR, abdom en, 1 view No observ ation record ed. [email or web address] [address] [place], [address], 08/15/2024 17:00:53 Result Notes None recorded. Procedures Surgical History Date Name Laterality Status Provider Name and Address Organization Details Recorded Time 10/04/19 24 open reduction of fracture of ulna [place] internal [place] [address] [place], [address], [facility] 08/07/2024 19:39:07 10/04/19 24 arthroplasty of head of radius completed TARA Leger, [place], [address], [facility] 08/07/2024 19:39:32 Cholecystectomy completed Kaycee Sen[place] [address], [place], [address], [facility] 08/07/2024 19:38:46 replacement of mitral valve completed Kaycee Sena, TARA [address] [facility], [place], [address], [facility] 08/07/2024 19:39:45 prosthetic arthroplasty of hip completed Kaycee Sena, TARA [address] [address] [facility], [place], [address], [facility] 08/07/2024 19:40:00 ligation of [place] [address] [address] [facility], [place], [address], [facility] 08/07/2024 19:40:08 Imaging Results Imaging Date Name Status [facility]Modified by [facility] Details LastModified Time 08/08/2024 XR, ribs, unilateral completed [email or web address] [facility] [address] [place], [address], 08/08/2024 21:14:11 08/15/2024 XR, abdomen, 1 view completed [address] , [place], [address], 08/15/2024 17:00:53 Procedure Notes None recorded. Medical Equipment None Reported. Allergies Allergen ID Allergen Name Allergen Category Reaction Reaction Severity Criticality Documentation Date Start Date Code Code System Note Provider Name and Address Organization Details Recorded Time 42775 nizatidin e medicatio n Not available Not available Not available 08/05/2024 18452 RxNorm Not Available Not Available Not Available Medications Name Sig Start Date Stop Date Status Note LastModified by Organization Details LastModified Time furosemide 40 mg tablet Take 1 tablet twice a day by oral route. active Not Available Not Available No t Available acetaminoph en 325 mg tablet Take 2 tablets every 4 hours by oral route as needed. active Not Available Not Available No t Available lidocaine 4 % topical patch Apply 1 patch every day by topical route. active Not Available Not Available No t Available trazodone 50 mg tablet Take 1 tablet every day by oral route at bedtime. active Not Available Not Available No t Available cetirizine 5 mg tablet Take 1 tablet every day by oral route. active Not Available Not Available No t Available omeprazole 40 mg capsule,del ayed release Take 1 capsule every day by oral route. active Not Available Not Available No t Available spironolact one 25 mg tablet Take 1 tablet every day by oral route. active Not Available Not Available No t Available methotrexat e sodium 2.5 mg tablet Take 3 tablets every week by oral route. active Not Available Not Available No t Available dicyclomine 20 mg tablet Take 1 tablet every day by oral route as needed. active Not Available Not Available No t Available hydrocortis one 1 % topical cream Apply 1 applicati on twice a day by topical route. active Not Available Not Available No t Available bisacodyl 10 mg rectal suppository Insert 1 supposito ry every day by rectal route as needed. active Not Available Not Available No t Available folic acid 1 mg tablet Take 1 tablet every day by oral route. active Not Available Not Available No t Available hydroxyzine HCl 25 mg tablet Take 1 tablet every 6 hours by oral route as needed. 08/11 completed Not Available Not Available Not Available nystatin 100,000 unit/gram topical powder Apply 1 applicati on twice a day by topical route. active Not Available Not Available No t Available lactulose 20 gram oral packet Take 1 packet every day by oral route. active Not Available Not Available No t Available Laxative (bisacodyl) 5 mg tablet,shoaib yed release Take 1 tablet every day by oral route as needed. active Not Available Not Available No t Available duloxetine 20 mg capsule,del ayed release Take 1 capsule every day by oral route. active Not Available Not Available No t Available Orencia (with maltose) 250 mg intravenous solution Inject 250 mg every month by intraveno us route. active Not Available Not Available No t Available lactulose 20 gram/30 mL oral solution Take 30 mL every day by oral route. 08/15 completed Not Available Not Available Not Available potassium chloride ER 20 mEq tablet,exte nded release Take 1 tablet every day by oral route. active Not Available Not Available No t Available albuterol sulfate 90 mcg/actuati on breath activated powder inhaler Inhale 2 puffs every 6 hours by inhalatio n route as needed. active Not Available Not Available No t Available Vitals Date Recorded Heart rate Body temperature Respiratory rate Oxygen saturation Oxygen saturation in Arterial blood by Pulse oximetry Body weight Body mass index (BMI) Body height Systolic blood pressure Diastolic blood pressure Provider Name and Address Organization Details Last Updated DateTime 5 71 /min 97.7 [degF] 18 /min 93 % 93 % 85375.8 1 g 32.7 kg/m2 167.64 cm 125 mm[Hg] 59 mm[Hg] [place] [address] [place], [address], [place] [employer] 5 14:46:21 Date Recorded Body height Heart rate Body temperature Respiratory rate Oxygen saturation Oxygen saturation in Arterial blood by Pulse oximetry Body mass index (BMI) Body weight Systolic blood pressure Diastolic blood pressure Provider Name and Address Organization Details Last Updated DateTime 5 167.64 cm 75 /min 97.6 [degF] 18 /min 92 % 92 % 32.2 kg/m2 69903.7 6 g 131 mm[Hg] 58 mm[Hg] [place] [address] [place], [address], [place] [employer] 5 08:07:21 Date Recorded Body height Heart rate Body temperature Respiratory rate Oxygen saturation Oxygen saturation in Arterial blood by Pulse oximetry Body mass index (BMI) Body weight Systolic blood pressure Diastolic blood pressure Provider Name and Address Organization Details Last Updated DateTime 5 167.64 cm 81 /min 98 [degF] 18 /min 92 % 92 % 32 kg/m2 63896.7 3 g 136 mm[Hg] 60 mm[Hg] [place] [address] [place], [address], [place] [employer] [facility] 5 14:53:13 Date Recorded Body height Heart rate Respiratory rate Oxygen saturation Oxygen saturation in Arterial blood by Pulse oximetry Body mass index (BMI) Body weight Body temperature Systolic blood pressure Diastolic blood pressure Provider Name and Address Organization Details Last Updated DateTime 5 167.64 cm 75 /min 20 /min 93 % 93 % 31.5 kg/m2 63735.5 1 g 98.1 [degF] 140 mm[Hg] 56 mm[Hg] [place] [address] [place], [address], [place] [employer] 5 10:53:09 Date Recorded Body height Heart rate Body temperature Respiratory rate Oxygen saturation Oxygen saturation in Arterial blood by Pulse oximetry Body mass index (BMI) Body weight Systolic blood pressure Diastolic blood pressure Provider Name and Address Organization Details Last Updated DateTime 167.64 cm 79 /min 97.4 [degF] 20 /min 96 % 96 % 30.9 kg/m2 23688.5 8 g 132 mm[Hg] 59 mm[Hg] [place] [address] [place], [address], [facility] 18:32:13 Social History Question Answer Notes LastModified by Organizat ion Details LastModified Time Tobacco Smoking Status [place] [address] [place], [address], [facility] 08/07/2024 19:21:23 What Is Your Level Of Alcohol Consumption? None Information not available 08/14/2024 What Is Your Code Status? DNR [email or web address] Information not available 08/05/2024 What Is Your Relationship Status? Information not available 08/07/2024 Do You Use Any Illicit Or Recreational Drugs? No Information not available 08/14/2024 Sex: Unknown Functional Status None recorded. Mental Status None recorded. Family History Relationship Description Onset Age of this Age Resolved Age Notes LastModified by Organization Details LastModified Time Father No current problems or disability [email or web address] Not available 08/14 05:18:55 Mother No current problems or disability [email or web address] Not available 08/14 05:18:56 Medical History Condition Response Osteoarthritis / DJD Y COPD Y Pulmonary Hypertension Y Valvular heart disease Y Chronic Kidney Disease (CKD) Y Rheumatoid Arthritis Y Fibromyalgia Y Coronary Artery Disease (CAD) Y Psychiatric -- Depression Y Pulmonary Fibrosis Y GERD / Reflux Y Neuropathy Y Gynecological HistoryNo gynecological history recorded. Obstetrics History GPAL:G 0 P 0 0 0 0 Past Encounters Encounter ID Performer Location Encounter Start Date Encounter Closed Date Diagnosis/Indication Diagnosis SNOMED-CT Code Diagnosis ICD10 Code Diagnosis Note [id number] Kaycee Sena NP [place] [address] [place] [address] 08/07/2024 09:27:34 08/26/2024 10:33:08 Acute on chronic diastolic heart failure 507016066 I50.33 Echo while inpatient noted normal LV systolic function with estimated EF 55-60%, grade 3 diastolic dysfunctio n, bioprosthe tic mitral valve, mod-severe tricuspid valve regurg, severe pulmonary HTN with estimated PASP [address] showed [R] moderate loculated pleural effusion, which was compared to old imaging and considered unchanged/ chronic and has been present for years.Lasi x dose 40 mg BID on discharge -- unclear if this in prior OP dose or an increase.S pironolact one dose was increased. Continue Lasix, Spironolac tone, and KCl.Monito r weights, labs, and edema.Comp ression present to BLE, encourage elevation at rest.Pt will need f/u with Dr. Xavier Frederick (cards). Physical deconditioning 0391226093 9102 R68.89 Related to age, recent inpatient stay, and multiple comorbidit ies. Continue PT/OT and monitor progress. Goal is for pt to be placed in apartment at this facility. Continue PRN APAP for pain. No DVT prophylaxi s -- pt is ambulatory . History of mitral valve prosthesis 0935648059 9109 Z95.2 SEE ABOVE... Coronary arteriosclerosis 67583780 I25.10 No recent reports of chest pain. Not present on baby ASA, BB, or statin.Pt will need f/u with Dr. Xavier Frederick (cards). Chronic ob structive pulmonary disease 87134249 J44.9 Not on routine inhalers. Monitor for need.Robe nue PRN Ventolin.F ollowed by pulmonolog y at [facility] as OP, need to confirm name. Fibrosis of lung 6673572 1 J84.10 SEE ABOVE... Severe pul monary hypertension 117578185 I27.20 SEE ABOVE... Rheumatoid arthritis 698 81611 M06.9 Historical ly followed by Dr. Khan (rheumatol ogy). Unclear if she has seen recently.O n Methotrexa te weekly, dose seems low. During visit in 2023, she was on 3 tabs. Waiting on medication list from PCP to confirm medication s. She was also on Orencia 250 mg monthly at that time. This is not noted anywhere in records. May have been stopped.Co ntinue PRN APAP for pain and monitor closely.F/ U with rheum Dr. Khan as OP. Fibromyalgia 339642510 M 79.7 Stable. Continue PRN APAP. Idiopathic peripheral neuropathy 43053931 G60.9 Stable. Continue PRN APAP. Spinal stenosis 67297639 M48.00 Stable. Continue PRN APAP. Major depr essive disorder 743969865 F32.9 Stable at present. Continue Duloxetine . Gastroesop hageal reflux disease without esophagitis 035082086 K21.9 Without concerns at present. Continue Omeprazole . Anemia 092896041 D64.9 Recent Hgb in 10s. Continue Folate. Irritable bowel syndrome characterized by constipation 556507963 K58.1 Constipate d at present. Continue Dicyclomin e for now. Continue Miralax and PRN cathartics . Would give suppositor y if no BM by tonight.Wolf mary closely. Allergic c ontact dermatitis 861174129 L23.9 Stable at present. Continue Cetirizine & Hydrocorti sone cream.D/C Hydroxyzin e due to non-use.Wolf mary for ability to change Cetirizine to PRN. Not for resuscitation 30 3703679 Z66 Pt is a DNR. Confirmed today. [id number] Lesly Castillo, DO [address] [address] 08/09/2024 15:34:28 08/26/2024 10:35:44 Acute on chronic diastolic heart failure 706270413 I50.33 Echo while inpatient noted normal LV systolic function with estimated EF 55-60%, grade 3 diastolic dysfunctio n, bioprosthe tic mitral valve, mod-severe tricuspid valve regurg, severe pulmonary HTN with estimated PASP [address] showed [R] moderate loculated pleural effusion, which was compared to old imaging and considered unchanged/ chronic and has been present for years.cont inue lasix 40 mg BID - usual outpatient dose 40 mg dailySpiro nolactone dose was titrated from outpatient dose of 25 mg to up to 100 mg while at [place] but she was ultimately discharged back on her usual dose of 25 mg daily. Creatinine did bump a bit to 1.41 on 07/30 so not clear if dose reduced back down related to this.Robe nue Lasix, Spironolac tone, and KClContinu e to trend weights, labs, and edema.Comp ression present to BLE, encourage elevation at rest.Pt will need f/u with Dr. Xavier Frederick (cards). Severe pul monary hypertension 457150266 I27.20 SEE ABOVE... History of mitral valve prosthesis 4815500763 9109 Z95.2 SEE ABOVE... Chronic ob structive pulmonary disease 79659502 J44.9 Not on routine inhalers. Monitor for need - Stiolto is on outpatient medication list but patient was not routinely using prior to recent hospitaliz ationConti nue PRN Ventolin.P reviously followed by pulmonolog y at [facility], Dr. Honey Lewis, but not seen in nearly 2 years Fibrosis of lung 9567908 1 J84.10 SEE ABOVE... Coronary arteriosclerosis 51313660 I25.10 No recent reports of chest pain. Not present on baby ASA, BB, or statin.Pt will need f/u with Dr. Xavier Frederick ([employer]). Rheumatoid arthritis 698 [address] Khan (rheumatol ogy).Incre ase MTX back to usual weekly doseShe can f/u once discharged from rehab to discuss resumption of monthly orencia infusionsC ontinue PRN APAP for pain and monitor closely. Fibromyalgia 387384658 M 79.7 Stable. Continue PRN APAP. Spinal stenosis 58104475 M48.00 Stable. Continue PRN APAP. Idiopathic peripheral neuropathy 91834482 G60.9 Stable. Continue PRN APAP. Irritable bowel syndrome characterized by constipation 857552635 K58.1 Constipate d at present. Continue Dicyclomin e and miralaxdul colax suppositor y x 1 - not available at facility this evening so MOM being given and suppositor y to be given when available - other meds available per standing orders as well Gastroesop hageal reflux disease without esophagitis 521939817 K21.9 Without concerns at present. Continue Omeprazole . Anemia 209842872 D64.9 Recent Hgb in 10s. Continue Folate and monitor CBC Major depr essive disorder 672031491 F32.9 Stable at present. Continue Duloxetine . Allergic c ontact dermatitis 061334384 L23.9 Stable at present. Continue Cetirizine & Hydrocorti sone cream.Alondra ferrara for ability to change Cetirizine to PRN. Physical deconditioning 4394111716 9102 R68.89 Related to age, recent inpatient stay, and multiple comorbidit ies.Contin ue PT/OT and monitor progress. Patient plans to d/c to [facility] at this facilityCo ntinue PRN APAP for pain.No DVT prophylaxi s -- pt is ambulatory . [id number] Kaycee Sena NP [address] [place] [address] 08/11/2024 10:07:43 08/26/2024 10:33:44 Acute on chronic diastolic heart failure 408630921 I50.33 Echo while inpatient noted normal LV systolic function with estimated EF 55-60%, grade 3 diastolic dysfunctio n, bioprosthe tic mitral valve, mod-severe tricuspid valve regurg, severe pulmonary HTN with estimated PASP [address] showed [R] moderate loculated pleural effusion, which was compared to old imaging and considered unchanged/ chronic and has been present for years.Lasi x was increased from OP dose of 40 mg daily to 40 mg BID. Spironolac tone dose was titrated from outpatient dose of 25 mg to up to 100 mg while at [place] but she was ultimately discharged back on her usual dose of 25 mg daily. Cr did bump a bit to 1.41 on 07/30 so not clear if dose reduced back down related to this.Robe nue Lasix, Spironolac tone, and KClContinu e to trend weights, labs, and edema.Vanesa barron notes her weights fluctuate between 180-190 lbs. Her weights during rehab stay in November 2023 were 198-203 lbs.Contin ue compressio n to BLE, encourage elevation at rest.Pt will need f/u with Dr. Xavier Frederick (cards). Severe pul monary hypertension 144396445 I27.20 SEE ABOVE... History of mitral valve prosthesis 3797981737 9109 Z95.2 SEE ABOVE... Chronic ob structive pulmonary disease 73421554 J44.9 Not on routine inhalers. Monitor for need - Stiolto is on outpatient medication list but patient was not routinely using prior to recent hospitaliz ation.Cont inue PRN Ventolin.P reviously followed by pulmonolog y at [facility], Dr. Honey Lewis, but not seen in nearly 2 years. Fibrosis of lung 9495463 1 J84.10 SEE ABOVE... Coronary arteriosclerosis 10643968 I25.10 No recent reports of chest pain. Not present on baby ASA, BB, or statin.Pt will need f/u with Dr. Xavier Frederick (cards). Rheumatoid arthritis 698 [address] Khan (rheumatol ogy).Incre ased MTX back to usual weekly dose.She does receive monthly Orencia infusions at [facility] but she missed July' so her last infusion was in June 2024. She can f/u once discharged from rehab to discuss resumption of infusions. Continue PRN APAP for pain and monitor closely. Fibromyalgia 728173622 M 79.7 Stable. Continue PRN APAP. Spinal stenosis 49696320 M48.00 Stable. Continue PRN APAP. Idiopathic peripheral neuropathy 40441594 G60.9 Stable. Continue PRN APAP. Irritable bowel syndrome characterized by constipation 053527284 K58.1 Constipate d at present. Continue Dicyclomin e, Lactulose, Miralax, and PRN cathartics per standing orders. Gastroesop hageal reflux disease without esophagitis 007310857 K21.9 Without concerns at present. Continue Omeprazole . Anemia 738872991 D64.9 Recent Hgb in 10s. Continue Folate and monitor CBC. Major depr essive disorder 409777598 F32.9 Stable at present. Continue Duloxetine . Allergic c ontact dermatitis 320347955 L23.9 Stable at present. Continue Cetirizine & Hydrocorti sone cream.Alondra tor for ability to change Cetirizine to PRN. Physical deconditioning 3656213651 9102 R68.89 Related to age, recent inpatient stay, and multiple comorbidit ies.Contin ue PT/OT and monitor progress. Patient plans to d/c to [facility] at this facility.C ontinue PRN APAP for pain.No DVT prophylaxi s -- pt is ambulatory . [id number] Kaycee Sena NP [address] [place] [address] 08/15/2024 10:20:25 08/26/2024 10:34:21 Acute on chronic diastolic heart failure 963011139 I50.33 Echo while inpatient noted normal LV systolic function with estimated EF 55-60%, grade 3 diastolic dysfunctio n, bioprosthe tic mitral valve, mod-severe tricuspid valve regurg, severe pulmonary HTN with estimated PASP [address] showed [R] moderate loculated pleural effusion, which was compared to old imaging and considered unchanged/ chronic and has been present for years.Lasi x was increased from OP dose of 40 mg daily to 40 mg BID. Spironolac tone dose was titrated from outpatient dose of 25 mg to up to 100 mg while at [place] but she was ultimately discharged back on her usual dose of 25 mg daily. Cr did bump a bit to 1.41 on 07/30 so not clear if dose reduced back down related to this.Robe nue Lasix, Spironolac tone, and KClContinu e to trend weights, labs, and edema.Vanesa barron notes her weights fluctuate between 180-190 lbs. Her weights during rehab stay in November 2023 were 198-203 lbs.Contin ue compressio n to BLE, encourage elevation at rest.Pt will need f/u with Dr. Xavier Frederick (cards). Severe pul monary hypertension [id number] I27.20 SEE ABOVE... History of mitral valve prosthesis [id number] 9109 Z95.2 SEE ABOVE... Chronic ob structive pulmonary disease 93124424 J44.9 Not on routine inhalers. Monitor for need - Stiolto is on outpatient medication list but patient was not routinely using prior to recent hospitaliz ation.Cont inue PRN Ventolin.P reviously followed by pulmonolog y at [facility], Dr. Honey Lewis, but not seen in nearly 2 years. Fibrosis of lung [id number] 1 J84.10 SEE ABOVE... Coronary arteriosclerosis 22938489 I25.10 No recent reports of chest pain. Not present on baby ASA, BB, or statin.Pt will need f/u with Dr. Xavier Frederick (cards). Rheumatoid arthritis [phone] [id number] Khan (rheumatol og).Incre ased MTX back to usual weekly dose.She does receive monthly Orencia infusions at [facility] but she missed July's so her last infusion was in June 2024. She can f/u once discharged from rehab to discuss resumption of infusions. Continue PRN APAP for pain and monitor closely. Fibromyalgia [id number] M 79.7 Stable. Continue PRN APAP. Spinal stenosis 25682233 M48.00 Stable. Continue PRN APAP. Idiopathic peripheral neuropathy 43702483 G60.9 Stable. Continue PRN APAP. Irritable bowel syndrome characterized by constipation 486109904 K58.1 Constipate d at present. Continue Lactulose, Miralax, and PRN cathartics per standing orders.Michelle nge Dicyclomin e to PRN -- hospital mistakenly had this as daily OP medication . Gastroesop hageal reflux disease without esophagitis [id number] K21.9 Without concerns at present. Continue Omeprazole . Anemia 236484879 D64.9 Recent Hgb in 10s. Continue Folate and monitor CBC. Major depr essive disorder 731099401 F32.9 Stable at present. Continue Duloxetine . Allergic c ontact dermatitis 305945281 L23.9 Stable at present. Continue Cetirizine & Hydrocorti sone cream.Alondra ferrara for ability to change Cetirizine to PRN. Physical deconditioning [id number] 9102 R68.89 Related to age, recent inpatient stay, and multiple comorbidit ies.Contin ue PT/OT and monitor progress. Patient plans to d/c to [facility] at this facility.C ontinue PRN APAP for pain.No DVT prophylaxi s -- pt is ambulatory . [id number] Kaycee Sena NP [facility] [address] [place] [address] 08/18/2024 16:01:28 08/26/2024 10:34:59 Acute on chronic diastolic heart failure [id number] I50.33 Echo while inpatient noted normal LV systolic function with estimated EF 55-60%, grade 3 diastolic dysfunctio n, bioprosthe tic mitral valve, mod-severe tricuspid valve regurg, severe pulmonary HTN with estimated PASP [address] showed [R] moderate loculated pleural effusion, which was compared to old imaging and considered unchanged/ chronic and has been present for years.Lasi x was increased from OP dose of 40 mg daily to 40 mg BID. Spironolac tone dose was titrated from outpatient dose of 25 mg to up to 100 mg while at [place] but she was ultimately discharged back on her usual dose of 25 mg daily. Cr did bump a bit to 1.41 on 07/30 so not clear if dose reduced back down related to this.Robe nue Lasix, Spironolac tone, and KCl.Ariadne notes her weights fluctuate between 180-190 lbs. Her weights during rehab stay in November 2023 were 198-203 lbs. Her weight has decreased about 11 lbs since her arrival to our rehab and edema has improved likewise.C ontinue compressio n to BLE, encourage elevation at rest.Robe nue to trend weights, labs, and edema.Pt will need f/u with Dr. Xavier Frederick (cards). Severe pul monary hypertension 412625528 I27.20 SEE ABOVE... History of mitral valve prosthesis [id number] 9109 Z95.2 SEE ABOVE... Chronic ob structive pulmonary disease 43669662 J44.9 Not on routine inhalers. Monitor for need - Stiolto is on outpatient medication list but patient was not routinely using prior to recent hospitaliz ation.Cont inue PRN Ventolin.P reviously followed by pulmonolog y at [facility], Dr. Honey Lewis, but not seen in nearly 2 years. Fibrosis of lung 4146252 1 J84.10 SEE ABOVE... Coronary arteriosclerosis 13878991 I25.10 No recent reports of chest pain. Not present on baby ASA, BB, or statin.Pt will need f/u with Dr. Xavier Frederick (cards). Rheumatoid arthritis 698 [address] Khan (rheumatol ogy).Incre ased MTX back to usual weekly dose.She does receive monthly Orencia infusions at [facility] but she missed July's so her last infusion was in June 2024. She can f/u once discharged from rehab to discuss resumption of infusions. Continue PRN APAP for pain and monitor closely. Fibromyalgia 213131711 M 79.7 Stable. Continue PRN APAP. Spinal stenosis 01268095 M48.00 Stable. Continue PRN APAP. Idiopathic peripheral neuropathy 66451281 G60.9 Stable. Continue PRN APAP. Irritable bowel syndrome characterized by constipation 300132081 K58.1 Improved. Continue Lactulose, Miralax, and PRN cathartics per standing orders.Michelle nged Dicyclomin e to PRN -- hospital mistakenly had this as daily OP medication . Gastroesop hageal reflux disease without esophagitis 796087376 K21.9 Without concerns at present. Continue Omeprazole . Anemia 374590936 D64.9 Recent Hgb in 10s. Continue Folate and monitor CBC. Major depr essive disorder 963906268 F32.9 Stable at present. Continue Duloxetine . Allergic c ontact dermatitis 251374377 L23.9 Stable at present. Continue Cetirizine & Hydrocorti sone cream.Alondra ferrara for ability to change Cetirizine to PRN. Health Concerns Section Related Observation LastModified by Organization Detai ls LastModified Time None Recorded Concern Status LastModified by Organization Details LastModified Time None Recorded Advance Directives Directive None Recorded Payers Encounter Date Sequence Insurance Name Policy Number Policy Harris Covered Member ID Harris Member ID Guarantor Name 08/07/2024 1 [place] Ariadne Okeefe [id number] Ariadne Okeefe 08/07/2024 2 [facility] [employer] [address] Ariadne Okeefe [id number] Ariadne Okeefe 08/09/2024 1 [place] Ariadne Okeefe [id number] Ariadne Okeefe 08/09/2024 2 [facility] [employer] [address] Ariadne Okeefe [id number] Ariadne Okeefe 08/11/2024 1 [place] Ariadne Okeefe [id number] Ariadne Okeefe 08/11/2024 2 [facility] [employer] [address] Ariadne Okeefe [id number] Ariadne Okeefe 08/15/2024 1 [place] Ariadne Okeefe [id number] Ariadne Okeefe 08/15/2024 2 [facility] - [employer] [address] Ariadne Okeefe [id number] Ariadne Okeefe 08/18/2024 1 [place] Ariadne Okeefe [id number] Ariadne Okeefe 08/18/2024 2 [facility] [employer] [address] Ariadne Okeefe [id number] Ariadne Okeefe Notes Date Note Type Note Provider Name and Address Organization Details Recorded Time 08/07/2024 text/html 74-year-old cauc female with PMH of D. CHF, chronic loculated [R] pleural effusion, Mitral Valve Replacement, CAD, COPD, Lung Fibrosis, Severe Pulm HTN, Rheumatoid Arthritis, Fibromyalgia, Peripheral Neuropathy, Spinal Stenosis, MDD, GERD, and Anemia presenting for rehabilitation following hospitalization at [facility] from 07/17 to 07/21/24 for CHF exacerbation and weakness. She was kept at the facility in a swing bed from 07/21 to 08/05/24 for acute rehabilitation and has now transferred to [facility] for further post-acute rehabilitation. Ariadne lives independently in a home, has been largely self-sufficient but does note that her in April 2024 and she has not been in good health since. She presented to [facility] with c/o SOB & weakness on 07/17. She was admitted for CHF exacerbation, diuresed with IV Lasix, and converted to Lasix 40 mg BID. Spironolactone was increased to 50 mg daily. She follows with Dr. Xavier Frederick (cards) at [facility], but has not been seen for > 1 year. While inpatient, echo showed normal LV systolic function with estimated EF 55-60%, grade 3 diastolic dysfunction, bioprosthetic mitral valve, mod-severe tricuspid valve regurg, severe pulmonary HTN with estimated PASP [address] showed [R] moderate loculated pleural effusion, which was compared to old imaging and considered unchanged/chronic and has been present for years. She is followed by pulmonology at [facility] who is treating supportively with monitoring. She was transitioned to a swing bed and has since transitioned here for further rehabilitation. She tells me she plans to move into an apartment at this facility rather than returning home. New meds: bisacodyl tab, hydrocortisone cream, trazodone, and PRN hydroxyzine.Adjusted meds: Spironolactone increased from 25 mg to 50 mg daily.Stopped meds: Pantoprazole. Will need to verify OP medications as pt does not have a list anywhere she can recall. She uses 2 different pharmacies so we cannot contact them. Will instead contact her PCP at [facility] and request home medication list. Notably she was at this rehab under a different provider group in November 2023 and her medications have changed since then. For instance, she was taking 3 tabs of methotrexate weekly (instead of 1 tab weekly), Fesoterodine 4 mg daily, Orencia 250 mg monthly, and Buspirone 10 mg daily. She is no longer on these medications. Her Spironolactone dose was 25 mg daily and her Furosemide dose was 40 mg daily. Her weight back then trended 202-203 lbs. Ariadne is doing well today, overall is without concerns or pain to report. She does report not having had a BM since Wednesday but has already received a dose of Miralax for this in prune juice this morning and, if does not have a BM tonight, will receive a bisacodyl suppository. VSS. Staff is without concerns today, as well. DNR with comfort measures.PCP Dr. Joselyn Huerta.Hernan is son Magdiel Okeefe, who lives in [place]. She was in Apr 2024. Kaycee Sena, TARA [address] [facility], [place], [address], [place] - [facility] 08/08/2024 09:49:44 08/09/2024 text/html 74-year-old cauc female with PMH of D. CHF, chronic loculated [R] pleural effusion, Mitral Valve Replacement, CAD, COPD, Lung Fibrosis, Severe Pulm HTN, Rheumatoid Arthritis, Fibromyalgia, Peripheral Neuropathy, Spinal Stenosis, MDD, GERD, and Anemia presenting for rehabilitation following hospitalization at [facility] from 07/17 to 07/21/24 for CHF exacerbation and weakness. She remained at the facility in a swing bed from 07/21 to 08/05/24 and has now transferred to [facility] for further post-acute rehabilitation. Ariadne lives independently in a home, has been largely self-sufficient but does note that her in April 2024 and she has not been in good health since. She presented to [facility] with c/o SOB & weakness on 07/17. She was admitted for CHF exacerbation, diuresed with IV Lasix, and converted to Lasix 40 mg BID. Spironolactone dose remains 25 mg daily. She follows with Dr. Xavier Frederick (cards) at [facility], but has not been seen for > 1 year. While inpatient, echo showed normal LV systolic function with estimated EF 55-60%, grade 3 diastolic dysfunction, bioprosthetic mitral valve, mod-severe tricuspid valve regurg, severe pulmonary HTN with estimated PASP [address] showed [R] moderate loculated pleural effusion, which was compared to old imaging and considered unchanged/chronic and has been present for years. She is followed by pulmonology at [facility] who is treating supportively with monitoring. She was transitioned to a swing bed and has since transitioned here for further rehabilitation. New meds: bisacodyl tab, hydrocortisone cream, trazodone, omeprazole and PRN hydroxyzine.Adjusted meds: Lasix increased from 40 mg daily to 40 mg BIDStopped meds: Pantoprazole. 08/07/24Ariadne is doing well today, overall is without concerns or pain to report. She does report not having had a BM since Wednesday but has already received a dose of Miralax for this in prune juice this morning and, if does not have a BM tonight, will receive a bisacodyl suppository. VSS. Staff is without concerns today, as well. DNR with comfort measures.PCP Dr. Joselyn Huerta.Hernan is son Magdiel Okeefe, who lives in [place]. She was in Apr 2024. 08/09/24Ariadne is sitting in her bedside chair this evening. She continues to be constipated - still no BM since admission to . She is agreeable to trying a suppository and MOM. She is also requesting MTX be increased to her usual outpatient dose - she takes weekly on Wednesdays and only got 1 pill (2.5 mg) this am - she is currently supposed to be taking 7.5 mg weekly per home list. She continues to have LE edema increased from baseline - she is keeping legs elevated and LUCIO wraps are being applied daily. She will likely d/c to [facility] when she completes skilled rehab - doesn't think she can return to living IND in her home. [place] [address] [facility], [place], [address], [place] - [facility] 08/14/2024 05:19:11 08/11/2024 text/html F/U CHF exacerba tion, weakness, and chronic medical conditions.---08/07/24B duong is doing well today, overall is without concerns or pain to report. She does report not having had a BM since Wednesday but has already received a dose of Miralax for this in prune juice this morning and, if does not have a BM tonight, will receive a bisacodyl suppository. VSS. Staff is without concerns today, as well.---08/09/24Ariadne is sitting in her bedside chair this evening. She continues to be constipated - still no BM since admission to . She is agreeable to trying a suppository and MOM. She is also requesting MTX be increased to her usual outpatient dose - she takes weekly on Wednesdays and only got 1 pill (2.5 mg) this am - she is currently supposed to be taking 7.5 mg weekly per home list. She continues to have LE edema increased from baseline - she is keeping legs elevated and LUCIO wraps are being applied daily. She will likely d/c to [facility] when she completes skilled rehab - doesn't think she can return to living IND in her home. No nursing concerns.---08/11/24Miranda stubbs is seen ambulating with w/w to therapy gym. She reports she is doing better today, does remain with some left ribcage tenderness overlying area of edema collection but that this is improving. She first noticed this on the evening of 08/07 with no known injury. Imaging of ribs was unremarkable. No ecchymosis noted. She has not yet had a BM despite being given multiple cathartics, including most recently Lactulose. She denies abdominal pain and feels certain her bowels will move today. We discuss her edema and typical weight (she typically fluctuates between 180-190 lbs as OP). Her weights when she was here for rehab in November 2023 were 198-203 lbs. She is open to diuretic burst if necessary as she also feels she is holding fluid in her hips. She does confirm that she receives monthly Orencia infusions via Dr. Khan (rheum) at [facility], but she missed July' so her last infusion was in June. VSS. Staff is without concerns today. Kaycee Sena, TARA [address] [facility], [place], [address], [facility] [place] [facility] 08/14/2024 10:01:51 08/15/2024 text/html F/U CHF exacerba tion, weakness, and chronic medical conditions.---08/07/24 duong is doing well today, overall is without concerns or pain to report. She does report not having had a BM since Wednesday but has already received a dose of Miralax for this in prune juice this morning and, if does not have a BM tonight, will receive a bisacodyl suppository. VSS. Staff is without concerns today, as well.---08/09/24Ariadne is sitting in her bedside chair this evening. She continues to be constipated - still no BM since admission to . She is agreeable to trying a suppository and MOM. She is also requesting MTX be increased to her usual outpatient dose - she takes weekly on Wednesdays and only got 1 pill (2.5 mg) this am - she is currently supposed to be taking 7.5 mg weekly per home list. She continues to have LE edema increased from baseline - she is keeping legs elevated and LUCIO wraps are being applied daily. She will likely d/c to [facility] when she completes skilled rehab - doesn't think she can return to living IND in her home. No nursing concerns.---08/11/24Miranda stubbs is seen ambulating with w/w to therapy gym. She reports she is doing better today, does remain with some left ribcage tenderness overlying area of edema collection but that this is improving. She first noticed this on the evening of 08/07 with no known injury. Imaging of ribs was unremarkable. No ecchymosis noted. She has not yet had a BM despite being given multiple cathartics, including most recently Lactulose. She denies abdominal pain and feels certain her bowels will move today. We discuss her edema and typical weight (she typically fluctuates between 180-190 lbs as OP). Her weights when she was here for rehab in November 2023 were 198-203 lbs. She is open to diuretic burst if necessary as she also feels she is holding fluid in her hips. She does confirm that she receives monthly Orencia infusions via Dr. Khan (rheum) at [facility], but she missed July's so her last infusion was in June. VSS. Staff is without concerns today.---08/15/24Chelsi hicks is seated in a room in the [facility] area, a good historian, reports she finally had a BM yesterday but it was very small and hard. She continues to receive cathartics and routine Lactulose. She is eating with good appetite. I let her know I'm going to change her Dicyclomine to PRN and she is unfamiliar with this medication, reports she was not taking it as OP (even though the hospital continued it as a home med). As such, she is happy to have us change this medication to PRN. She denies history of IBS with abdominal pain warranting the use of this medication. She otherwise reports improvement in her edema and her weight has downtrended a few lbs. Despite this, she still appears mildly fluid overloaded. Depending on tomorrow's labs results, she might benefit from Metolazone burst. VSS. Staff is without concerns today beyond aforementioned. Kaycee Sena, TARA [address] [place], [address], [place] - [facility] 08/15/2024 15:11:47 08/18/2024 text/html 74-year-old cauc female with PMH of D. CHF, chronic loculated [R] pleural effusion, Mitral Valve Replacement, CAD, COPD, Lung Fibrosis, Severe Pulm HTN, Rheumatoid Arthritis, Fibromyalgia, Peripheral Neuropathy, Spinal Stenosis, MDD, GERD, and Anemia presenting for rehabilitation following hospitalization at [facility] from 07/17 to 07/21/24 for CHF exacerbation and weakness. She was kept at the facility in a swing bed from 07/21 to 08/05/24 for acute rehabilitation and has now transferred to [facility] for further post-acute rehabilitation. Ariadne lives independently in a home, has been largely self-sufficient but does note that her in April 2024 and she has not been in good health since. She presented to [facility] with c/o SOB & weakness on 07/17. She was admitted for CHF exacerbation, diuresed with IV Lasix, and converted to Lasix 40 mg BID. Spironolactone was increased to 50 mg daily. She follows with Dr. Xavier Frederick (cards) at [facility], but has not been seen for > 1 year. While inpatient, echo showed normal LV systolic function with estimated EF 55-60%, grade 3 diastolic dysfunction, bioprosthetic mitral valve, mod-severe tricuspid valve regurg, severe pulmonary HTN with estimated PASP [address] showed [R] moderate loculated pleural effusion, which was compared to old imaging and considered unchanged/chronic and has been present for years. She is followed by pulmonology at [facility] who is treating supportively with monitoring. She was transitioned to a swing bed and has since transitioned here for further rehabilitation. She tells me she plans to move into an apartment at this facility rather than returning home. New meds: bisacodyl tab, hydrocortisone cream, trazodone, and PRN hydroxyzine.Adjusted meds: Spironolactone increased from 25 mg to 50 mg daily.Stopped meds: Pantoprazole. Will need to verify OP medications as pt does not have a list anywhere she can recall. She uses 2 different pharmacies so we cannot contact them. Will instead contact her PCP at [facility] and request home medication list. Notably she was at this rehab under a different provider group in November 2023 and her medications have changed since then. For instance, she was taking 3 tabs of methotrexate weekly (instead of 1 tab weekly), Fesoterodine 4 mg daily, Orencia 250 mg monthly, and Buspirone 10 mg daily. She is no longer on these medications. Her Spironolactone dose was 25 mg daily and her Furosemide dose was 40 mg daily. Her weight back then trended 202-203 lbs. DNR with comfort measures.PCP Dr. Joselyn Huerta. She will be transferring her care to Dr. Sanchez Coronado upon d/c to [facility].Hernan is son Magdiel Okeefe, who lives in [place]. She was in Apr 2024.---08/07/24Ariadne is doing well today, overall is without concerns or pain to report. She does report not having had a BM since Wednesday but has already received a dose of Miralax for this in prune juice this morning and, if does not have a BM tonight, will receive a bisacodyl suppository. VSS. Staff is without concerns today, as well.---08/09/24Ariadne is sitting in her bedside chair this evening. She continues to be constipated - still no BM since admission to . She is agreeable to trying a suppository and MOM. She is also requesting MTX be increased to her usual outpatient dose - she takes weekly on Wednesdays and only got 1 pill (2.5 mg) this am - she is currently supposed to be taking 7.5 mg weekly per home list. She continues to have LE edema increased from baseline - she is keeping legs elevated and LUCIO wraps are being applied daily. She will likely d/c to [facility] when she completes skilled rehab - doesn't think she can return to living IND in her home. No nursing concerns.---08/11/24Miranda stubbs is seen ambulating with w/w to therapy gym. She reports she is doing better today, does remain with some left ribcage tenderness overlying area of edema collection but that this is improving. She first noticed this on the evening of 08/07 with no known injury. Imaging of ribs was unremarkable. No ecchymosis noted. She has not yet had a BM despite being given multiple cathartics, including most recently Lactulose. She denies abdominal pain and feels certain her bowels will move today. We discuss her edema and typical weight (she typically fluctuates between 180-190 lbs as OP). Her weights when she was here for rehab in November 2023 were 198-203 lbs. She is open to diuretic burst if necessary as she also feels she is holding fluid in her hips. She does confirm that she receives monthly Orencia infusions via Dr. Khan (rheum) at [facility], but she missed so her last infusion was in June. VSS. Staff is without concerns today.---08/15/24Chelsi hicks is seated in a room in the common area, a good historian, reports she finally had a BM yesterday but it was very small and hard. She continues to receive cathartics and routine Lactulose. She is eating with good appetite. I let her know I'm going to change her Dicyclomine to PRN and she is unfamiliar with this medication, reports she was not taking it as OP (even though the hospital continued it as a home med). As such, she is happy to have us change this medication to PRN. She denies history of IBS with abdominal pain warranting the use of this medication. She otherwise reports improvement in her edema and her weight has downtrended a few lbs. Despite this, she still appears mildly fluid overloaded. Depending on tomorrow's labs results, she might benefit from Metolazone burst. VSS. Staff is without concerns today beyond aforementioned.---08/05 10/27Ariadne is doing well today, seated on the side of her bed, preparing to head to lunch shortly. She is without concerns, reports her edema to her BLE continues to improve, and she continues to have small bowel movements. She will transfer to [facility] on 08/21 with [facility]. She is without concerns regarding this transfer. VSS. Staff is also without concerns today. Her weight continues to downtrend as desired, down 11 lbs since arrival to this facility. Kaycee Sena, TARA [address] [facility], [place], [address], [facility] [place] [facility] 08/18/2024 18:40:47 OBGyn Episode No OBEpisode recorded.
--- OUTSIDE RECORDS SUMMARY | 2024-09-28 07:18 | XMS_ITS ---
Author Organization [facility] Address [address] [place] [address] Care Team Providers Care Research And Evaluation Analyst Name Role Phone Deanna FRANZ, [facility] Primary Care Provider Eleazar Butcher [phone] Eleazar Watkins MD Unavailabl e Encounters Encounter Location Date Provider Diagnosis [facility] [address] [place] [address] 09/15/2024 Eleazar Watkins Plan Of Treatment Next Appt Details Provider Name:Eleazar spaulding, 10/12/2024 02:00:00 PM, [address], [address], [place], [address], Provider Name:Eleazar spaulding, 11/09/2024 02:00:00 PM, [address], [address], [place], [address], Provider Name:Eleazar spaulding, 12/07/2024 02:00:00 PM, [address], [address], [place], [address], Progress Notes * Ariadne CAGE KDOB:1949 (74 yo F)Acc No.[id number]:09/15/2024 Patient: Isreal ALBERT Ariadne Simmons :1950 A ge:74 Y S ex:Female Address:[address] [place] [address], [place] [address], [place], [address] * true * Date: Generated for Printi /Brandie/Cuate on: 0 09/28/2024 07:18 AM CDT
--- OUTSIDE RECORDS SUMMARY | 2024-09-28 07:18 | XMS_ITS | Clinical Summary ---
Author Organization [facility] Address [address] [place] [address] Care Team Providers Care Road Tester Name Role Phone Dg Huerta MD Primary Care Provider [phone] Source Comments [facility],non-owned Affiliates and Associated Physician Practices is amultiple site organization consisting of ambulatory clinics and hospital sitesin [place], [place], [place] and [place]. This disclosure is being madepursuant to the Care Everywhere program and may not contain all information available regarding this patient. Last updated 18.[facility] Allergies No known active allergies Immunizations Name Administration Dates Next Due INFLUENZA VACCINE, HIGH-DOSE , QUADR. (FLUZONE HIGH-DOSE QUADRIVALENT; 65Y+), 0.7 ML ([id number]) 05/15/2019 Social History Tobacco Use Types Packs/Day Years Used Date Smoking Tobacco: Never Assessed Sex and Gender Information Value Date Recorded Sex Assigned at Not on file Gender Identity Not on file Sexual Orientation Not on file Plan of Treatment Health Maintenance Due Date Last Done Comments BONE DENSITY TESTING 1950 COLOGUARD (AGES 45-75) - COL ON CA SCREENING 1950 COLON MONITORING 1950 COLONOSCOPY - COLON CA SCREENING 1950 CT COLONOGRAPHY - COLON CA SCREENING 1950 Colorectal Cancer Screening 1950 FIT - COLON CA SCREENING 1950 FLEX SIG - COLON CA SCREENING 1950 LIPID TESTING 1950 MAMMOGRAM 1950 MEDICARE AWV 12 MONTHS 1950 HEPATITIS C SCREENING 05/03/1969 DTAP/TDAP/TD VACCINES (1 - Tdap) 1970 PNEUMOCOCCAL VACCINE 50+ (1 of 1 - PCV) 2001 ZOSTER VACCINE (1 of 2) 2001 COVID-19 VACCINE (1 - 2023-2 5 season) 2024 INFLUENZA VACCINE (#1) 2024 05/15/2019 DEPRESSION SCREENING 07/05/2024 Respiratory Syncytial Virus (RSV) Vaccine Pt: or over 60 yrs (1 - 1-dose 75+ series) 2026 HEPATITIS B VACCINE Aged Out No longe r eligible based on patient's age to complete this topic HIB VACCINE Aged Out No longer eligi ble based on patient's age to complete this topic HPV VACCINE Aged Out No longer eligi ble based on patient's age to complete this topic MENINGOCOCCAL (Group B) VACC INE SHARED DECISION-MAKING Aged Out No longer eligibl e based on patient's age to complete this topic MENINGOCOCCAL GROUPS A/C/Y/W VACCINE Aged Out No longer eligible b ased on patient's age to complete this topic Care Teams Road Tester Relationship Specialty Start Date End Date Dg Huerta MD [address] [place] [address] PCP - General 03/04/22
--- OUTSIDE RECORDS SUMMARY | 2024-09-28 07:18 | XMS_ITS | Encounter Summary ---
Author Organization [facility] Address [address] [place] [address] Care Team Providers Care Development Scientist Name Role Phone Dg Huerta MD Primary Care Provider [phone] Dg Huerta MD Primary Care Provider [phone] Dg Huerta MD Primary Care Provider [phone] Encounter Details Date Type Department Care Team (Late Contact Info) Description 08/04/2016 Orders Only [facility] ProviderEtelvina MD [address] [place] [address] Social History Tobacco Use Types Packs/Day Years Used Date Smoking Tobacco: Some Days Cigarettes Last attempted to quit: 07/05/1990 Alcohol Use Standard Drinks/Week Comments No 0 (1 standard drink = 0.6 oz pur e alcohol) Comments Unknown Sex and Gender Information Value Date Recorded Sex Assigned at Not on file 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 Historical Provider [facility] HARMAN LAU Final Result documented in this encounter Visit Diagnoses Not on filedocumented in this encounter Care Teams Development Scientist Relationship Specialty Start Date End Date Dg Huerta MD PCP - General 10/02/16 Dg Huerta MD PCP - General 08/25/16 10/01/16 Dg Huerta MD PCP - General 04/13/07 08/24/16 documented as of this encounter
--- OUTSIDE RECORDS SUMMARY | 2024-09-28 07:18 | XMS_ITS | Encounter Summary ---
Author Organization [facility] Address [address] [place] [address] Phone Care Team Providers Care Meter Reader Chief Name Role Phone Dg Huerta MD Primary Care Provider [phone] Encounter Details Date Type Department Care Team (Latest Contact Info) Description 09/27/2020 Orders Only [facility] Scanning, Provider Social History Tobacco Use Types Packs/Day Years Used Date Smoking Tobacco: Former Smokeless Tobacco: Never Alcohol Use Standard Drinks/Week Comments Yes 0 (1 standard drink = 0.6 oz pur e alcohol) occassional Comments No Sex and Gender Information Value Date Recorded Sex Assigned at Not on file 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 Have requested it again * Alix Cornelius - 09/27/2020 11:59 PM CDT Tyron, I believe we correct c.d. today of echo. It was downloaded to [facility], CD on my desk if youwant to look at it. documented in this encounter Plan of Treatment Not on file documented as of this encounter Goals Goal Patient Goal Type Associated Problems Recent Progress Patient-Stated? Author YONIS General Goal - Patient schedules and keeps appointments with all recommended providers [facility] Care Management Magaly Mitchell, SARINA Note: Problem: Potential for medical complications and readmission if follow-up appointments are not scheduled Interventions: - Ensure all follow-up appointments are scheduled, all prescribed medications have been received. - Address any barriers for keeping scheduled appointment. - Coordinate with patient/caregiver(s) to ensure patient is able to keep scheduled appointment. - Emphasize importance of keeping scheduled appointments. - Identify and discuss questions for next provider visit. - Follow up with patient after scheduled appointment(s) to review any new orders or changes made to medication regimen. documented as of this encounter Procedures Procedure Name Priority Date/Time Associated Diagnosis Comments CARDIOLOGY DOCUMENT SCAN 09/26/2020 documented in this encounter Results * SCAN - CARDIOLOGY (09/26/2020) Anatomical Region Laterality Modality Other us Provider Scanning [facility] PROCEDURES Edited Result - Final documented in this encounter Visit Diagnoses Not on filedocumented in this encounter Care Teams Meter Reader Chief Relationship Specialty Start Date End Date Dg Huerta MD PCP - General 10/02/16 documented as of this encounter
--- OUTSIDE RECORDS SUMMARY | 2024-09-28 07:19 | XMS_ITS ---
Author Name CrawfordSam duckworthrobin Barbour Address [address] [place] [address] Phone [phone] Organization [facility] Address [address] [place] [address] Phone [phone] Care Team Providers Care Technician Automatic Name Role Phone Jessi Taveras Angle Unavailable Sanchez Coronado Unavailable [phone] Kaycee Sena Unavailable Lesly Corcoran Unavailable [phone] Eleazar Khan Unavailable Functional Status No Results Mental Status No Results Allergies and Intolerances Name Onset Date Reaction Severity nizatidine (Allergy) WedNov 01 23:36:00 EDT AcipHex (Allergy) WedNov 01 23:35:00 EDT 2023 Encounters Program Name Primary Diagnosis Admission Date/Time Dis charge Date/Time [facility] WedAug 05 04:45:00 EST 2024Aug 21 06:45:00 EST 2024 [facility] Sun Aug 27 19:00:00 EST 2024 [facility] WedNov 01 17:00:00 EDT 2023November 26 07:00:00 EDT 2023 Assisted Living Area Hypertensive heart disease with heart failure WedAug 21 06:50:00 EST 2024 Immunizations Name Dates Status TST-PPD intradermal WedNovember 02 01:00:00 EDT 2023 Completed TST-PPD intradermal WedNovember 04:00:00 EDT 2023 Completed TST-PPD intradermal WedNovember 09:00:00 EDT 2023 Completed TST-PPD intradermal Tue b 01:00:00 EST 2024 Completed TST-PPD intradermal Tue b 01:00:00 EST 2024 Completed TST-PPD intradermal Sun b 01:00:00 EST 2024 Completed TST-PPD intradermal Sun b 01:00:00 EST 2024 Completed TST-PPD intradermal WedNovember 11 01:00:00 EDT 2023 Completed Medications Medication Directions Start Date End Date potassium chloride ER 20 mEq tablet,extended release 2 tabs TABLET, EXTENDED RELEASE Oral 1 Time Daily Indication: hypokalemiaCNA supervision x12 tabs=40mEq total WedSep 23 12:39:00 EDT 2024 potassium chloride ER 20 mEq tablet,extended release 1 tab TABLET, EXTENDED RELEASE Oral 1 Time Daily Indication: hypokalemiaCNA supervision x1 WedSep 20 01:00:00 EDT 2024Sep 23 12:43:00 EDT 2024 DULoxetine 40 mg capsule,delayed release 1 capsule CAPSULE,DELAYED RELEASE (ENTERIC COATED) Oral 1 Time Daily Indication: depression GOLF [employer] C[employer] T[employer]ATER supervision x1 WedSep 19 01:00:00 EDT 2024 Biofreeze (menthol) 4 % topical gel NA GEL (ML) Topical PRN Every 6 Hours for 14 Days Indication: apply to affected areas WedSep 16 10:15:00 EDT 2024Sep 30 10:14:00 EDT 2024 hydrocortisone 1 % topical cream 1 CREAM (GRAM) Topical PRN 2 Times Daily Indication: itching Indication: itching WedSep 16 18:39:00 EDT 2024 HYDROcodone 5 mg-acetaminophen 325 mg tablet 1 tablet TABLET Oral PRN Every 4 Hours Indication: pain WedSep 04 15:00:00 EST 2024 metOLazone 2.5 mg tablet 1 tab TABLET Or al 3 Times Weekly Indication: CHF [employer] supervision X1 WedSep 01 01:00:00 EST 2024Sep 11 10:28:00 EDT 2024 colchicine 0.6 mg tablet 2 tab TABLET Or al 1 Time Daily for 1 Day Indication: Gout [employer] Supervision WedSep 01 10:00:00 EST 2024Sep 02 09:59:00 EST 2024 colchicine 0.6 mg tablet 1 TABLET Oral 1 Time Daily for 1 Day Indication: Gout [employer] supervision WedSep 01 11:00:00 EST 2024 [facility] Sep 02 10:59:00 EST 2024 allopurinoL 100 mg tablet 1 tab TABLET O ral 1 Time Daily Indication: gout [employer] supervision X1 WedSep 01 01:00:00 EST 2024 omeprazole 40 mg capsule,delayed release 1 CAPSULE,DELAYED RELEASE (ENTERIC COATED) Oral 2 Times Daily Indication: GerdCNA supervision X 1 x 4 WedAug 28 11:48:00 EST 2024 traMADoL 50 mg tablet 50mg TABLET Oral P RN 3 Times Daily Indication: fibromyalgia/chronic pain WedAug 28 12:00:00 EST 2024 triamcinolone acetonide 0.1 % topical cream BID CREAM (GRAM) Topical 2 Times Daily for 14 Days Indication: apply to affected areas BID x 14 days may administer self WedAug 29 01:00:00 EST 2024Sep 12 00:59:00 EDT 2024 triamcinolone acetonide 0.1 % topical cream BID CREAM (GRAM) Topical PRN 2 Times Daily Indication: apply to affected areas BID PRN may administer self WedAug 29 01:00:00 EST 2024 furosemide 40 mg tablet 1 TABLET Oral 2 Times Daily Indication: Edema [employer] Supervision X 1 X 3 WedAug 27 12:34:00 EST 2024 Blood Pressure Kit n/a KIT Other 2 Time s Daily for 7 Days Indication: GOLF B[employer] C[employer] TREATER VitalsCNA supervision X 1 X 3 WedAug 23 01:00:00 EST 2024Aug 30 00:59:00 EST 2024 Blood Pressure Kit n/a KIT Other 2 Time s Monthly Indication: GOLF [employer] TREATER Vitals Indication: GOLF BALL C[employer] TREATER Vitals WedAug 23 01:00:00 EST 2024 hydrOXYzine HCL 25 mg tablet 25 mg TABLET Oral PRN Every 6 Hours Indication: Itching WedAug 21 04:30:00 EST 2024Aug 21 01:00:00 EST 2024 bisacodyL 5 mg tablet,delayed release 1 TABLET, DELAYED RELEASE (ENTERIC COATED) Oral PRN (Max 1 Doses) Indication: Constipation WedAug 21 13:00:00 EST 2024Aug 21 13:37:00 EST 2024 hydrocortisone 1 % topical cream 1 CREAM (GRAM) Topical 2 Times Daily Indication: itching Wed Feb 17 13:00:00 EST 2024 Mon Feb 17 13:50:00 EST 2024 folic acid 1 mg tablet 1 TABLET Oral 1 T adria Daily Indication: Supplement Wedb 17 13:00:00 EST 2024 Mon Feb 17 13:51:00 EST 2024 furosemide 40 mg tablet 1 TABLET Oral 2 Times Daily Indication: Edema Wed Feb 17 13:00:00 EST 2024 Mon Feb 17 13:52:00 EST 2024 spironolactone 25 mg tablet 1 TABLET Oral 1 Time Daily Indication: Edema Wed Feb 17 13:00:00 EST 2024 Mon Feb 17 13:52:00 EST 2024 cetirizine 5 mg tablet 1 TABLET Oral 1 T adria Daily Indication: Allergies Wedb 17 13:00:00 EST 2024 Mon Feb 17 13:53:00 EST 2024 DULoxetine 20 mg capsule,delayed release 1 CAPSULE,DELAYED RELEASE (ENTERIC COATED) Oral 1 Time Daily Indication: Depression Wedb 17 13:00:00 EST 2024 Mon Feb 17 13:54:00 EST 2024 omeprazole 40 mg capsule,delayed release 1 CAPSULE,DELAYED RELEASE (ENTERIC COATED) Oral 1 Time Daily Indication: Gerd Wedb 17 13:00:00 EST 2024 Feb 17 13:54:00 EST 2024 albuterol sulfate HFA 90 mcg/actuation aerosol inhaler 2 puffs HFA AEROSOL WITH ADAPTER (GRAM) Inhalation PRN (Max 6 Doses) Indication: SOB Wedb 17 13:00:00 EST 2024 Feb 17 13:26:00 EST 2024 Dulcolax (bisacodyl) 10 mg rectal suppository 1 SUPPOSITORY, RECTAL Rectal PRN (Max 1 Doses) Indication: Constipation Wedb 17 13:00:00 EST 2024 Feb 17 13:55:00 EST 2024 traZODone 50 mg tablet 1 TABLET Oral 1 T adria Daily Indication: Insomnia Wedb 17 13:00:00 EST 2024 Feb 17 13:56:00 EST 2024 albuterol sulfate HFA 90 mcg/actuation aerosol inhaler 2 puffs HFA AEROSOL WITH ADAPTER (GRAM) Inhalation PRN Every 4 Hours Indication: SOB Wedb 17 13:24:00 EST 2024Aug 21 13:57:00 EST 2024 acetaminophen 325 mg tablet 2 TABLET Oral PRN Every 4 Hours Indication: Pain WedAug 21 13:00:00 EST 2024Aug 21 13:58:00 EST 2024 potassium chloride ER 20 mEq tablet,extended release 1 TABLET, EXTENDED RELEASE Oral 1 Time Daily Indication: Hypokalemia WedAug 21 13:00:00 EST 2024Aug 21 13:59:00 EST 2024 nystatin 100,000 unit/gram topical powder 1 POWDER (GRAM) Topical 2 Times Daily Indication: Fungal infection, apply to abdominal foldsNurse admin WedAug 21 13:00:00 EST 2024 bisacodyL 5 mg tablet,delayed release 1 TABLET, DELAYED RELEASE (ENTERIC COATED) Oral PRN 1 Time Daily Indication: ConstipationCNA supervision X 1 WedAug 21 13:32:00 EST 2024 hydrocortisone 1 % topical cream 1 CREAM (GRAM) Topical 2 Times Daily Indication: itchingCNA supervision X 1 X 4 WedAug 21 13:37:00 EST 2024 [facility] Sep 16 18:41:00 EDT 2024 folic acid 1 mg tablet 1 TABLET Oral 1 T adria Daily Indication: SupplementCNA Supervision X 1 WedAug 21 13:50:00 EST 2024 furosemide 40 mg tablet 1 TABLET Oral 2 Times Daily Indication: EdemaCNA Supervision X 1 X 4 WedAug 21 13:51:00 EST 2024 [place] Aug 27 12:37:00 EST 2024 spironolactone 25 mg tablet 1 TABLET Oral 1 Time Daily Indication: EdemaCNA Supervision X 1 WedAug 21 13:52:00 EST 2024 cetirizine 5 mg tablet 1 TABLET Oral 1 T adria Daily Indication: AllergiesCNA Supervision X 1 WedAug 21 13:52:00 EST 2024 DULoxetine 20 mg capsule,delayed release 1 CAPSULE,DELAYED RELEASE (ENTERIC COATED) Oral 1 Time Daily Indication: DepressionCNA supervision X 1 WedAug 21 13:53:00 EST 2024Sep 18 21:02:00 EDT 2024 omeprazole 40 mg capsule,delayed release 1 CAPSULE,DELAYED RELEASE (ENTERIC COATED) Oral 1 Time Daily Indication: GerdCNA supervision X 1 WedAug 21 13:54:00 EST 2024Aug 28 11:49:00 EST 2024 Dulcolax (bisacodyl) 10 mg rectal suppository 1 SUPPOSITORY, RECTAL Rectal PRN (Max 1 Doses) Indication: ConstipationNurse administered WedAug 21 13:54:00 EST 2024 traZODone 50 mg tablet 1 TABLET Oral 1 T adria Daily Indication: InsomniaCNA Supervision X 4 WedAug 21 13:55:00 EST 2024 Ventolin HFA 90 mcg/actuation aerosol inhaler 2 puffs HFA AEROSOL WITH ADAPTER (GRAM) Inhalation PRN Every 4 Hours Indication: SOBNurse administered WedAug 21 13:56:00 EST 2024 acetaminophen 325 mg tablet 2 TABLET Oral PRN Every 4 Hours Indication: PainNurse administered WedAug 21 13:57:00 EST 2024 potassium chloride ER 20 mEq tablet,extended release 1 TABLET, EXTENDED RELEASE Oral 1 Time Daily Indication: HypokalemiaCNA supervision X 1 WedAug 21 13:58:00 EST 2024Sep 23 12:43:00 EDT 2024 Lidocaine Pain Relief 4 % topical patch 1 ADHESIVE PATCH, MEDICATED Topical 2 Times Daily Indication: PainApply in amRemove at HS WedAug 21 13:00:00 EST 2024Sep 27 18:36:00 EDT 2024 methotrexate sodium 2.5 mg tablet 3 TABLET Oral 1 Time Weekly Indication: Athritis [employer] supervision X 1 WedAug 21 13:00:00 EST 2024 lactulose 20 gram/30 mL oral solution 1 SOLUTION, ORAL Oral 1 Time Daily Indication: Constipation Nurse administered WedAug 21 13:00:00 EST 2024 dicyclomine 20 mg tablet 1 TABLET Oral P RN 1 Time Daily Indication: IBSCNA Supervision X 1 WedAug 21 13:00:00 EST 2024 hydrOXYzine HCL 25 mg tablet 1 TABLET Oral PRN Every 6 Hours Indication: ItchingCNA supervision X 1 X 2 X 3 X 4 WedAug 21 13:00:00 EST 2024 Blood Pressure Kit n/a KIT Other 2 Time s Daily for 7 Days Indication: GOLF BALL C[employer] TREATER VitalsCNA supervision X 1 X 3 WedAug 21 13:00:00 EST 2024Aug 23 07:16:00 EST 2024 dicyclomine 20 mg tablet 1 tablet TABLET Oral PRN 1 Time Daily Indication: IBS TuAug 15 12:26:00 EST 2024Aug 21 01:00:00 EST 2024 lactulose 20 gram/30 mL oral solution 30 mL SOLUTION, ORAL Oral 1 Time Daily Indication: constipation WedAug 10 09:00:00 2024Aug 21 01:00:00 EST 2024 methotrexate sodium 2.5 mg tablet 3 tablet TABLET Oral 1 Time Weekly Indication: Arthritis WedAug 10 02:30:00 2024Aug 21 01:00:00 EST 2024 bisacodyL 10 mg rectal suppository 1 suppository SUPPOSITORY, RECTAL Rectal PRN 1 Time Daily Indication: constipation WedAug 10 02:00:00 2024Aug 21 01:00:00 EST 2024 lidocaine 4 % topical patch 1 patch ADHESIVE PATCH, MEDICATED Topical 2 Times Daily Indication: pain WedAug 08 09:00:00 2024Aug 21 01:00:00 EST 2024 Dulcolax (bisacodyl) 10 mg rectal suppository 1 supp SUPPOSITORY, RECTAL Rectal PRN 1 Time Daily Indication: Constipation WedAug 07 11:25:00 2024Aug 21 01:00:00 EST 2024 traZODone 50 mg tablet 1 tablet TABLET O ral 1 Time Daily Indication: Insomnia WedAug 07 12:51:00 2024Aug 21 01:00:00 EST 2024 acetaminophen 325 mg tablet 2 tablets TABLET Oral PRN Every 4 Hours Indication: Mild pain or fever WedAug 07 12:52:00 2024Aug 21 01:00:00 EST 2024 potassium chloride ER 20 mEq tablet,extended release(part/cryst) 1 tab TABLET, EXT RELEASE, PARTICLES/CRYSTALS Oral 1 Time Daily Indication: hypokalemia WedAug 07 17:52:00 2024Aug 21 01:00:00 EST 2024 nystatin 100,000 unit/gram topical powder one application POWDER (GRAM) Topical 2 Times Daily Indication: Fungal infectionApply powder to abdominal folds twice daily. WedAug 06 05:00:00 2024Aug 21 01:00:00 EST 2024 TubersoL 5 tub. unit/0.1 mL intradermal injection solution 0.1 ml VIAL (ML) Intradermal 1 Time Weekly for 2 Weeks Indication: . 1st injection on admission, then one week after. Read between 48 and 72 hours WedAug 06 15:09:00 EST 2025 Sun Feb 16 15:08:00 EST 2024 TubersoL 5 tub. unit/0.1 mL intradermal injection solution 0.1 ml VIAL (ML) Intradermal 1 Time Weekly for 2 Weeks Indication: . 1st injection on admission, then one week after. Read between 48 and 72 hours Sat Aug 05 11:00:00 2024 Sun Feb 02 15:10:00 2024 TubersoL 5 tub. unit/0.1 mL intradermal injection solution Read Results VIAL (ML) Other 1 Time Weekly for 2 Weeks Indication: . Read results between 48-72 hours after 1st and 2nd (1 week apart). Any reading of 10mm or greater results in a positive test, an x-ray will need to be ordered as a follow up. Sat Aug 05 11:00:00 2024 Sat Aug 19 10:59:00 EST 2024 bisacodyL 5 mg tablet,delayed release 1 tablet TABLET, DELAYED RELEASE (ENTERIC COATED) Oral PRN 1 Time Daily Indication: Constipation Sat Aug 05 10:24:00 2024 Mon Feb 17 01:00:00 EST 2024 hydrocortisone 1 % topical cream 1 application CREAM (GRAM) Topical 2 Times Daily Indication: Apply to affected areas every 12 hours Sat Aug 05 10:30:00 2024 Mon Feb 17 01:00:00 EST 2024 traZODone 50 mg tablet 1 tablet TABLET O ral 1 Time Daily Indication: Sleep Sat Aug 05 10:32:00 2024 Mon Feb 03 12:52:00 EST 2024 acetaminophen 325 mg tablet 2 tablets TABLET Oral PRN Every 4 Hours Indication: Mild pain or fever Sat b 10:33:00 EST 2024 Mon Feb 03 12:53:00 EST 2024 hydrOXYzine HCL 25 mg tablet 1 tablet TABLET Oral PRN Every 6 Hours Indication: Itching Sat b 10:30:00 EST 2024 Mon Feb 03 18:21:00 EST 2024 methotrexate sodium 2.5 mg tablet 1 tablet TABLET Oral 1 Time Weekly Indication: Arthritis Sat b 10:30:00 EST 2024 Wed Feb 05 23:13:00 EST 2024 folic acid 1 mg tablet 1 tablet TABLET O ral 1 Time Daily Indication: Supplement Sat b 10:50:00 EST 2024 Mon Feb 17 01:00:00 EST 2024 furosemide 40 mg tablet 1 tablet TABLET Oral 2 Times Daily Indication: CHF WedAug 05 10:51:00 EST 2024b 01:00:00 EST 2024 spironolactone 25 mg tablet 1 tablet TABLET Oral 1 Time Daily Indication: Edema WedAug 05 10:51:00 EST 2024b 01:00:00 EST 2024 cetirizine 5 mg tablet 1 tablet TABLET O ral 1 Time Daily Indication: Allergies WedAug 05 10:54:00 EST 2024b 01:00:00 EST 2024 DULoxetine 20 mg capsule,delayed release 1 capsule CAPSULE,DELAYED RELEASE (ENTERIC COATED) Oral 1 Time Daily Indication: Depression WedAug 05 10:56:00 EST 2024b 01:00:00 EST 2024 omeprazole 40 mg capsule,delayed release 1 capsule CAPSULE,DELAYED RELEASE (ENTERIC COATED) Oral 1 Time Daily Indication: GERD WedAug 05 11:00:00 EST 2024b 01:00:00 EST 2024 dicyclomine 20 mg tablet 1 tablet TABLET Oral 1 Time Daily Indication: IBS WedAug 05 11:00:00 EST 2024 Tue b 12:27:00 EST 2024 Ventolin HFA 90 mcg/actuation aerosol inhaler 2 puffs HFA AEROSOL WITH ADAPTER (GRAM) Inhalation PRN Every 4 Hours Indication: SOB/ Wheezing WedAug 05 11:03:00 EST 2024Aug 21 01:00:00 EST 2024 Myrbetriq 25 mg tablet,extended release 1 tablet TABLET, EXTENDED RELEASE 24 HR Oral 1 Time Daily Indication: Urge incontinence WedNovember 21 13:00:00 EDT 2023November 26 01:00:00 EDT 2023 traZODone 50 mg tablet 25mg TABLET Oral 1 Time Daily Indication: Insomnia WedNovember 03 14:00:00 EDT 2023November 26 01:00:00 EDT 2023 diclofenac 1 % topical gel 4 grams GEL ( GRAM) Topical PRN 4 Times Daily Indication: Apply to right ankle/leg for pain Max dose 4 grams WedNovember 03 14:00:00 EDT 2023November 26 01:00:00 EDT 2023 TubersoL 5 tub. unit/0.1 mL intradermal injection solution 0.1 ml VIAL (ML) Intradermal 1 Time Weekly for 2 Weeks Indication: TB test 1st injection on admission, then one week after. Read between 48 and 72 hours WedNovember 02 01:00:00 EDT 2023November 16 00:59:00 EDT 2023 TubersoL 5 tub. unit/0.1 mL intradermal injection solution Read Results VIAL (ML) Other 1 Time Weekly for 2 Weeks Indication: TB test Read results between 48-72 hours after 1st and 2nd (1 week apart). If positive do chest x-ray. WedNovember 02 01:00:00 EDT 2023November 16 00:59:00 EDT 2023 spironolactone 25 mg tablet 1 tab TABLET Oral 1 Time Daily Indication: Edema WedNovember 02 09:51:00 EDT 2023November 26 01:00:00 EDT 2023 methotrexate sodium 2.5 mg tablet 3 tab TABLET Oral 1 Time Weekly Indication: RA WedNovember 02 09:00:00 EDT 2023November 26 01:00:00 EDT 2023 furosemide 40 mg tablet 1 tab TABLET Ora l 1 Time Daily Indication: edema Amber November 03 09:00:00 EDT 2023November 26 01:00:00 EDT 2023 busPIRone 10 mg tablet 1 tab TABLET Oral 1 Time Daily Indication: Depression WedNovember 02 09:10:00 EDT 2023November 02 13:48:00 EDT 2023 Orencia 125 mg/mL subcutaneous syringe 250 mg SYRINGE (ML) Subcutaneous 1 Time Monthly Indication: RA [facility]. WedNovember 16 07:00:00 EDT 2023November 26 01:00:00 EDT 2023 DULoxetine 20 mg capsule,delayed release 1 cap CAPSULE,DELAYED RELEASE (ENTERIC COATED) Oral 1 Time Daily Indication: depression WedNovember 02 13:30:00 EDT 2023November 26 01:00:00 EDT 2023 busPIRone 10 mg tablet 1 tab TABLET Oral 1 Time Daily Indication: Depression WedNovember 02 13:30:00 EDT 2023November 26 01:00:00 EDT 2023 acetaminophen 500 mg tablet 2 tabs TABLET Oral PRN Every 6 Hours Indication: pain WedNovember 02 02:00:00 EDT 2023November 26 01:00:00 EDT 2023 Ventolin HFA 90 mcg/actuation aerosol inhaler 1 puff HFA AEROSOL WITH ADAPTER (GRAM) Inhalation PRN Every 4 Hours Indication: SOB WedNovember 02 01:00:00 EDT 2023November 26 01:00:00 EDT 2023 DULoxetine 20 mg capsule,delayed release 1 cap CAPSULE,DELAYED RELEASE (ENTERIC COATED) Oral 1 Time Daily Indication: depression WedNovember 02 02:00:00 EDT 2023November 02 13:46:00 EDT 2023 fesoterodine ER 4 mg tablet,extended release 24 hr 1 tab TABLET, EXTENDED RELEASE 24 HR Oral 1 Time Daily Indication: Bladder hyperactivity WedNovember 02 01:00:00 EDT 2023November 21 15:24:00 EDT 2023 methocarbamoL 500 mg tablet 1 tab TABLET Oral 3 Times Daily Indication: muscle relaxer WedNovember 02 01:00:00 EDT 2023November 26 01:00:00 EDT 2023 methotrexate sodium 2.5 mg tablet 10 tabs TABLET Oral 1 Time Weekly Indication: RA WedNovember 02 01:00:00 EDT 2023November 02 09:08:00 EDT 2023 oxyCODONE 5 mg tablet 1 tab TABLET Oral PRN Every 4 Hours Indication: pain WedNov 01 01:00:00 EDT 2023November 26 01:00:00 EDT 2023 pantoprazole 40 mg tablet,delayed release 1 tab TABLET, DELAYED RELEASE (ENTERIC COATED) Oral 1 Time Daily Indication: GERD WedNovember 02 01:00:00 EDT 2023November 26 01:00:00 EDT 2023 Stimulant Laxative Plus 8.6 mg-50 mg tablet 1 tab TABLET Oral 1 Time Daily Indication: constipation WedNovember 02 01:00:00 EDT 2023November 26 01:00:00 EDT 2023 Saline Nasal Mist 0.65 % spray aerosol 1 spray AEROSOL, SPRAY (ML) Intranasal PRN Indication: rhinitis WedNovember 02 01:00:00 EDT 2023November 26 01:00:00 EDT 2023 Problems Active Concerns * Presence of prosthetic heart valve* Code: * Start Date: WedNov 01 00:00:00 EDT 2023 * End Date: * Text: * Rheumatoid arthritis with rheumatoid factor of multiple sites without organ or systems involvement* Code: * Start Date: WedNov 01 00:00:00 EDT 2023 * End Date: * Text: * Gastro-esophageal reflux disease without esophagitis* Code: * Start Date: WedNov 01 00:00:00 EDT 2023 * End Date: * Text: * Pulmonary fibrosis, unspecified* Code: * Start Date: WedNov 01 00:00:00 EDT 2023 * End Date: * Text: * Fibromyalgia* Code: * Start Date: WedNov 01 00:00:00 EDT 2023 * End Date: * Text: * Presence of other bone and tendon implants* Code: * Start Date: WedNov 01 00:00:00 EDT 2023 * End Date: * Text: * Pulmonary hypertension, unspecified* Code: * Start Date: WedNov 01 00:00:00 EDT 2023 * End Date: * Text: * Essential (primary) hypertension* Code: * Start Date: WedNov 01 00:00:00 EDT 2023 * End Date: * Text: * Unspecified osteoarthritis, unspecified site* Code: * Start Date: WedNov 01 00:00:00 EDT 2023 * End Date: * Text: * Atherosclerotic heart disease of [place] coronary artery without angina pectoris* Code: * Start Date: WedNov 01 00:00:00 EDT 2023 * End Date: * Text: * Chronic obstructive pulmonary disease, unspecified* Code: * Start Date: WedNov 01 00:00:00 EDT 2023 * End Date: * Text: * Personal history of nicotine dependence* Code: * Start Date: WedNov 01 00:00:00 EDT 2023 * End Date: * Text: * Rheumatic mitral insufficiency* Code: * Start Date: WedNov 01 00:00:00 EDT 2023 * End Date: * Text: * 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* Code: * Start Date: WedNov 01 00:00:00 EDT 2023 * End Date: * Text: * Polyneuropathy, unspecified* Code: * Start Date: WedNov 01 00:00:00 EDT 2023 * End Date: * Text: * Chronic kidney disease, unspecified* Code: * Start Date: WedNovember 24 00:00:00 EDT 2023 * End Date: * Text: * Personal history of (healed) traumatic fracture* Code: * Start Date: WedAug 05 00:00:00 EST 2024 * End Date: * Text: * Pleural effusion, not elsewhere classified* Code: * Start Date: WedAug 05 00:00:00 EST 2024 * End Date: * Text: * Hypertensive heart disease with heart failure* Code: * Start Date: WedAug 05 00:00:00 EST 2024 * End Date: * Text: * Major depressive disorder, single episode, unspecified* Code: * Start Date: WedAug 05 00:00:00 2024 * End Date: * Text: * Allergic rhinitis, unspecified* Code: * Start Date: WedAug 05 00:00:00 2024 * End Date: * Text: * Constipation, unspecified* Code: * Start Date: WedAug 05 00:00:00 EST 2024 * End Date: * Text: * Age-related physical debility* Code: * Start Date: WedAug 05 00:00:00 2024 * End Date: * Text: * Other symptoms and signs involving the musculoskeletal system* Code: * Start Date: WedAug 05 00:00:00 2024 * End Date: * Text: * Acute on chronic diastolic (congestive) heart failure* Code: * Start Date: WedAug 05 00:00:00 2024 * End Date: * Text: * Spinal stenosis, site unspecified* Code: * Start Date: WedAug 05 00:00:00 2024 * End Date: * Text: * Irritable bowel syndrome with constipation* Code: * Start Date: WedAug 05 00:00:00 2024 * End Date: * Text: * Anemia, unspecified* Code: * Start Date: WedAug 05 00:00:00 2024 * End Date: * Text: * Allergic contact dermatitis, unspecified cause* Code: * Start Date: WedAug 05 00:00:00 EST 2024 * End Date: * Text: * Chronic diastolic (congestive) heart failure* Code: * Start Date: WedAug 21 00:00:00 EST 2024 * End Date: * Text: * Muscle weakness (generalized)* Code: * Start Date: WedAug 28 00:00:00 EST 2024 * End Date: * Text: * Other fatigue* Code: * Start Date: WedAug 28 00:00:00 EST 2024 * End Date: * Text: * Need for assistance with personal care* Code: * Start Date: WedAug 28 00:00:00 EST 2024 * End Date: * Text: * Unsteadiness on feet* Code: * Start Date: WedAug 28 00:00:00 2024 * End Date: * Text: * Other abnormalities of gait and mobility* Code: * Start Date: WedAug 28 00:00:00 EST 2024 * End Date: * Text: * LSS_ADLs - Ariadne has ADL selfcare deficit related to decreased mobility and muscle weakness* Code: * Start Date: WedAug 18 00:00:00 EST 2024 * End Date: * Text: LSS_ADLs - Ariadne has ADL selfcare deficit related to decreased mobility and muscle weakness * LSS_Skin Integrity - (Potential Alteration of)- Ariadne is at risk for developing impaired skin integrity.* Code: * Start Date: WedAug 18 00:00:00 2024 * End Date: * Text: LSS_Skin Integrity - (Potential Alteration of)- Ariadne is at risk for developing impaired skin integrity. * LSS_Falls - Ariadne is at risk for falls/injury as evidenced by: history of falls, cognitive status/behavior, vision status, continence, mobility, balance.* Code: * Start Date: WedAug 18 00:00:00 2024 * End Date: * Text: LSS_Falls - Ariadne is at risk for falls/injury as evidenced by: history of falls, cognitive status/behavior, vision status, continence, mobility, balance. * LSS_Psychotropic Drug Use - Use of psychotropic drug use places Ariadne at risk for drug-related side effects.* Code: * Start Date: WedAug 18 00:00:00 2024 * End Date: * Text: LSS_Psychotropic Drug Use - Use of psychotropic drug use places Ariadne at risk for drug-related side effects. * LSS_Bowel Alterations - Ariadne has a bowelelimination problem as evidenced by: constipation (x ),diarrhea ( ), history of fecal impaction ( ), bowelincontinence ( ).x* Code: * Start Date: WedAug 18 00:00:00 2024 * End Date: * Text: LSS_Bowel Alterations - Ariadne has a bowelelimination problem as evidenced by: constipation (x ),diarrhea ( ), history of fecal impaction ( ), bowelincontinence ( ).x * Emily Ron will be involved in discharge planning.* Code: * Start Date: WedAug 15 00:00:00 EST 2024 * End Date: * Text: MATTHEWSocial Sandy Ron will be involved in discharge planning. * Emily Ron's mobility level is different than prior level due to current medical condition.* Code: * Start Date: WedAug 15 00:00:00 EST 2024 * End Date: * Text: Emily Ron's mobility level is different than prior level due to current medical condition. * MATTHEWSocial Sandy Ron has family/friends who are supportive.* Code: * Start Date: WedAug 15 00:00:00 EST 2024 * End Date: * Text: Emily Ron has family/friends who are supportive. * MATTHEWSocial Sandy Ron will be involved in goal development to the best of his or her ability.* Code: * Start Date: WedAug 15 00:00:00 EST 2024 * End Date: * Text: Emily Ron will be involved in goal development to the best of his or her ability. * Emily Ron's wishes will be followed (Advanced Directive/Code Status).* Code: * Start Date: WedAug 15 00:00:00 EST 2024 * End Date: * Text: Emily Ron's wishes will be followed (Advanced Directive/Code Status). * [id number] Ariadne receives a therapeutic diet. (12)* Code: * Start Date: WedAug 14 00:00:00 EST 2024 * End Date: * Text: [id number] Ariadne receives a therapeutic diet. (12) * MATTHEWSkin Integrity Larisa Ron has alteration in skinintegrity. Wound type:_surgical , woundlocation:_right arm .* Code: * Start Date: WedNovember 21 00:00:00 EDT 2023 * End Date: * Text: LSS_Skin Integrity - Ariadne has alteration in skinintegrity. Wound type:_surgical , woundlocation:_right arm . * LSS_Pain - Ariadne is experiencing pain or is at highrisk for pain.* Code: * Start Date: WedNovember 21 00:00:00 EDT 2023 * End Date: * Text: LSS_Pain - Ariadne is experiencing pain or is at highrisk for pain. * LSS_Skin Integrity - (Potential Alteration of)- Brendais at risk for developing impaired skin integrity.* Code: * Start Date: WedNovember 21 00:00:00 EDT 2023 * End Date: * Text: LSS_Skin Integrity - (Potential Alteration of)- Brendais at risk for developing impaired skinintegrity. * LSS_ADLs - Airadne has ADL selfcare deficit related to decreased mobility and muscle weakness* Code: * Start Date: WedNovember 21 00:00:00 EDT 2023 * End Date: * Text: LSS_ADLs - Ariadne has ADL selfcare deficit related to decreased mobility and muscle weakness * LSS_Falls - Ariadne is at risk for falls/injury asevidenced by: history of falls, cognitivestatus/behavior, vision status, continence,mobility, balance. * Code: * Start Date: WedNovember 21 00:00:00 EDT 2023 * End Date: * Text: LSS_Falls - Ariadne is at risk for falls/injury asevidenced by: history of falls, cognitivestatus/behavior, vision status, continence,mobility, balance. * LSS_Social Services- Ariadne will be involved in discharge planning.* Code: * Start Date: WedNovember 03 00:00:00 EDT 2023 * End Date: * Text: LSS_Social Services- Ariadne will be involved in discharge planning. * LSS_Social Services- Ariadne has a dx of depression and is currently on an antidepressant.* Code: * Start Date: WedNovember 03 00:00:00 EDT 2023 * End Date: * Text: LSS_Social Services- Ariadne has a dx of depression and is currently on an antidepressant. * Emily Conways mobility level is different than prior level due to current medical condition.* Code: * Start Date: WedNovember 03 00:00:00 EDT 2023 * End Date: * Text: Emliy Conways mobility level is different than prior level due to current medical condition. * Emily Ron has family/friends who are supportive.* Code: * Start Date: WedNovember 03 00:00:00 EDT 2023 * End Date: * Text: Emily Ron has family/friends who are supportive. * Emily Ron will be involved in goal development to the best of his or her ability.* Code: * Start Date: WedNovember 03 00:00:00 EDT 2023 * End Date: * Text: Emily Ron will be involved in goal development to the best of his or her ability. * Emily Ron's wishes will be followed (Advanced Directive/Code Status).* Code: * Start Date: WedNovember 03 00:00:00 EDT 2023 * End Date: * Text: Emily Ron's wishes will be followed (Advanced Directive/Code Status). Resolved Concerns * Problem Fall on same level, unspecified, subsequent encounter* Code: * Start Date: WedNov 01 00:00:00 EDT 2023 * End Date: WedAug 07 00:00:00 EST 2024 * Problem Bent bone of right ulna, subsequent encounter for closed fracture with routine healing* Code: * Start Date: WedNov 01 00:00:00 EDT 2023 * End Date: WedAug 07 00:00:00 EST 2024 * Problem Unspecified injury of head, subsequent encounter* Code: * Start Date: WedNov 01 00:00:00 EDT 2023 * End Date: WedAug 07 00:00:00 EST 2024 * Problem Displaced comminuted fracture of shaft of ulna, right arm, subsequent encounter for closed fracture with routine healing* Code: * Start Date: WedNov 01 00:00:00 EDT 2023 * End Date: WedAug 07 00:00:00 EST 2024 * Problem Fracture of other specified skull and facial bones, right side, subsequent encounter for fracture with routine healing* Code: * Start Date: WedNov 01 00:00:00 EDT 2023 * End Date: WedAug 07 00:00:00 EST 2024 * Problem Monteggia's fracture of right ulna, subsequent encounter for closed fracture with routine healing* Code: * Start Date: WedNov 01 00:00:00 EDT 2023 * End Date: WedAug 07 00:00:00 EST 2024 * Problem Unspecified intracranial injury with loss of consciousness of unspecified duration, subsequent encounter* Code: * Start Date: WedNov 01 00:00:00 EDT 2023 * End Date: WedAug 07 00:00:00 EST 2024 * Problem Unspecified fracture of upper end of right radius, subsequent encounter for closed fracturewith routine healing* Code: * Start Date: WedNov 01 00:00:00 EDT 2023 * End Date: WedAug 07 00:00:00 EST 2024 * Problem Myalgia, unspecified site* Code: * Start Date: WedNov 01 00:00:00 EDT 2023 * End Date: WedAug 07 00:00:00 EST 2024 * Problem Acute pain due to trauma* Code: * Start Date: WedNov 01 00:00:00 EDT 2023 * End Date: WedAug 07 00:00:00 EST 2024 * Problem Depression, unspecified* Code: * Start Date: WedNov 01 00:00:00 EDT 2023 * End Date: WedAug 07 00:00:00 EST 2024 * Problem Heart failure, unspecified* Code: * Start Date: WedAug 05 00:00:00 EST 2024 * End Date: WedAug 08 00:00:00 EST 2024 Vital Signs Vital Sign Measurement Date Systolic Blood Pressure 150.00 mm[Hg] WedSep 20 18:48:16 EDT 2024 Diastolic Blood Pressure 64.00 mm[Hg] WedSep 20 18:48:16 EDT 2024 Body weight 167.20 [lb_av] WedSep 20 18:48 :16 EDT 2024 Heart Rate 77.00 /min WedSep 20 18:48 :16 EDT 2024 Body temperature 97.80 [degF] WedSep 20 18:4 8:16 EDT 2024 Respiratory rate 19.00 /min WedSep 20 18:4 8:16 EDT 2024 Pulse Oximetry 93.00 % WedSep 20 18:48 :16 EDT 2024 Systolic Blood Pressure 122.00 mm[Hg] WedSep 06 20:56:06 EST 2024 Diastolic Blood Pressure 64.00 mm[Hg] WedSep 06 20:56:06 EST 2024 Body weight 183.70 [lb_av] WedSep 06 20:56 :06 EST 2024 Heart Rate 85.00 /min WedSep 06 20:56 :06 EST 2024 Body temperature 98.40 [degF] WedSep 06 20:5 6:06 EST 2024 Respiratory rate 18.00 /min WedSep 06 20:5 6:06 EST 2024 Pulse Oximetry 94.00 % WedSep 06 20:56 :06 EST 2024 Systolic Blood Pressure 140.00 mm[Hg] WedAug 29 21:47:43 EST 2024 Diastolic Blood Pressure 75.00 mm[Hg] WedAug 29 21:47:43 EST 2024 Heart Rate 78.00 /min WedAug 29 21:47 :43 EST 2024 Respiratory rate 18.00 /min WedAug 29 21:4 7:43 EST 2024 Systolic Blood Pressure 137.00 mm[Hg] WedAug 29 10:09:03 EST 2024 Diastolic Blood Pressure 55.00 mm[Hg] WedAug 29 10:09:03 EST 2024 Heart Rate 73.00 /min WedAug 29 10:09 :03 EST 2024 Respiratory rate 16.00 /min WedAug 29 10:0 9:03 EST 2024 Systolic Blood Pressure 132.00 mm[Hg] WedAug 28 21:32:02 EST 2024 Diastolic Blood Pressure 56.00 mm[Hg] WedAug 28 21:32:02 EST 2024 Heart Rate 67.00 /min WedAug 28 21:32 :02 EST 2024 Respiratory rate 20.00 /min WedAug 28 21:3 2:02 EST 2024 Systolic Blood Pressure 131.00 mm[Hg] WedAug 28 11:41:51 EST 2024 Diastolic Blood Pressure 56.00 mm[Hg] Mon Feb 24 11:41:51 EST 5 Heart Rate 70.00 /min Mon Feb 24 11:41 :51 EST 5 Respiratory rate 20.00 /min Mon Feb 24 11:4 1:51 EST 5 Systolic Blood Pressure 124.00 mm[Hg] Sun Feb 23 22:02:41 EST 5 Diastolic Blood Pressure 56.00 mm[Hg] Sun Feb 23 22:02:41 EST 5 Heart Rate 76.00 /min Sun Feb 23 22:02 :41 EST 2025 Respiratory rate 18.00 /min Sun Feb 23 22:0 2:41 EST 2025 Systolic Blood Pressure 116.00 mm[Hg] Sun Feb 23 15:23:55 EST 5 Diastolic Blood Pressure 66.00 mm[Hg] Sun Feb 23 15:23:55 EST 2025 Heart Rate 108.00 /min Sun Feb 23 15:23 :55 EST 2025 Respiratory rate 20.00 /min Sun Feb 23 15:2 3:55 EST 5 Systolic Blood Pressure 139.00 mm[Hg] Sat Feb 22 20:46:46 EST 5 Diastolic Blood Pressure 64.00 mm[Hg] Sat Feb 22 20:46:46 EST 2025 Heart Rate 75.00 /min Sat Feb 22 20:46 :46 EST 5 Respiratory rate 18.00 /min Sat Feb 22 20:4 6:46 EST 2025 Systolic Blood Pressure 123.00 mm[Hg] Sat Feb 22 11:39:58 EST 2025 Diastolic Blood Pressure 51.00 mm[Hg] Sat Feb 22 11:39:58 EST 2025 Heart Rate 69.00 /min Sat Feb 22 11:39 :58 EST 2025 Respiratory rate 18.00 /min Sat Feb 22 11:3 9:58 EST 2025 Systolic Blood Pressure 129.00 mm[Hg] Fri Feb 21 23:10:50 EST 2025 Diastolic Blood Pressure 64.00 mm[Hg] Fri Feb 21 23:10:50 EST 2025 Heart Rate 70.00 /min Fri Feb 21 23:10 :50 EST 2025 Respiratory rate 18.00 /min Fri Feb 21 23:1 0:50 EST 2025 Systolic Blood Pressure 143.00 mm[Hg] Fri Feb 21 12:34:54 EST 2025 Diastolic Blood Pressure 65.00 mm[Hg] Fri Feb 21 12:34:54 EST 2025 Heart Rate 80.00 /min Fri Feb 21 12:34 :54 EST 5 Respiratory rate 18.00 /min Fri Feb 21 12:3 4:54 EST 5 Systolic Blood Pressure 128.00 mm[Hg] Amber Feb 20 21:39:15 EST 5 Diastolic Blood Pressure 57.00 mm[Hg] Amber Feb 20 21:39:15 EST 5 Heart Rate 81.00 /min Amber Feb 20 21:39 :15 EST 5 Respiratory rate 18.00 /min Amber Feb 20 21:3 9:15 EST 5 Systolic Blood Pressure 143.00 mm[Hg] Amber Feb 20 12:04:08 EST 5 Diastolic Blood Pressure 61.00 mm[Hg] Amber Feb 20 12:04:08 EST 5 Heart Rate 69.00 /min Amber Feb 20 12:04 :08 EST 5 Respiratory rate 20.00 /min Amber Feb 20 12:0 4:08 EST 2024 Systolic Blood Pressure 156.00 mm[Hg] Wed Feb 19 20:52:25 EST 5 Diastolic Blood Pressure 68.00 mm[Hg] Wed Feb 19 20:52:25 EST 5 Systolic Blood Pressure 156.00 mm[Hg] Wed Feb 19 20:52:25 EST 5 Diastolic Blood Pressure 68.00 mm[Hg] Wed Feb 19 20:52:25 EST 5 Body weight 183.70 [lb_av] Wed Feb 19 20:52 :25 EST 5 Heart Rate 72.00 /min Wed Feb 19 20:52 :25 EST 5 Heart Rate 72.00 /min Wed Feb 19 20:52 :25 EST 5 Body temperature 97.50 [degF] Wed Feb 19 20:5 2:25 EST 5 Respiratory rate 20.00 /min Wed Feb 19 20:5 2:25 EST 5 Respiratory rate 20.00 /min Wed Feb 19 20:5 2:25 EST 2024 Pulse Oximetry 97.00 % Wed Feb 19 20:52 :25 EST 5 Systolic Blood Pressure 152.00 mm[Hg] Wed Feb 19 14:27:34 EST 5 Diastolic Blood Pressure 64.00 mm[Hg] Wed Feb 19 14:27:34 EST 5 Heart Rate 72.00 /min Wed Feb 19 14:27 :34 EST 5 Respiratory rate 20.00 /min Wed Feb 19 14:2 7:34 EST 5 Systolic Blood Pressure 128.00 mm[Hg] e Feb 18 19:30:33 EST 5 Diastolic Blood Pressure 68.00 mm[Hg] e Feb 18 19:30:33 EST 5 Body weight 183.40 [lb_av] e Feb 18 19:30 :33 EST 5 Heart Rate 68.00 /min e Feb 18 19:30 :33 EST 5 Body temperature 97.50 [degF] e Feb 18 19:3 0:33 EST 5 Respiratory rate 18.00 /min e Feb 18 19:3 0:33 EST 2024 Pulse Oximetry 96.00 % Wed Feb 18 19:30 :33 EST 5 Systolic Blood Pressure 134.00 mm[Hg] e Feb 18 09:21:12 EST 5 Diastolic Blood Pressure 65.00 mm[Hg] e Feb 18 09:21:12 EST 2024 Body weight 183.00 [lb_av] e Feb 18 09:21 :12 EST 5 Heart Rate 75.00 /min e Feb 18 09:21 :12 EST 5 Body temperature 98.10 [degF] e Feb 18 09:2 1:12 EST 5 Respiratory rate 18.00 /min e Feb 18 09:2 1:12 EST 5 Pulse Oximetry 92.00 % Wed Feb 18 09:21 :12 EST 5 Systolic Blood Pressure 134.00 mm[Hg] Wed Feb 17 19:26:25 EST 5 Diastolic Blood Pressure 65.00 mm[Hg] Wed Feb 17 19:26:25 EST 5 Heart Rate 75.00 /min Wed Feb 17 19:26 :25 EST 5 Body temperature 98.10 [degF] Wed Feb 17 19:2 6:25 EST 5 Respiratory rate 18.00 /min Wed Feb 17 19:2 6:25 EST 5 Pulse Oximetry 92.00 % Wed Feb 17 19:26 :25 EST 5 Systolic Blood Pressure 131.00 mm[Hg] Mon Feb 17 10:50:13 EST 5 Diastolic Blood Pressure 65.00 mm[Hg] Wed Feb 17 10:50:13 EST 2025 Heart Rate 80.00 /min Mon Feb 17 10:50 :13 EST 2024 Body temperature 97.60 [degF] Mon Feb 17 10:5 0:13 EST 2024 Respiratory rate 18.00 /min Mon Feb 17 10:5 0:13 EST 2024 Pulse Oximetry 93.00 % [facility] Feb 17 10:50 :13 EST 2024 Systolic Blood Pressure 134.00 mm[Hg] Mon Feb 17 01:00:00 EST 2024 Diastolic Blood Pressure 65.00 mm[Hg] Mon Feb 17 01:00:00 EST 2024 Heart Rate 75.00 /min Mon Feb 17 01:00 :00 EST 2024 Body weight 187.00 [lb_av] Mon Feb 17 01:00 :00 EST 2024 Body temperature 98.10 [degF] [facility] Feb 17 01:0 0:00 EST 2024 Respiratory rate 18.00 /min Mon Feb 17 01:0 0:00 EST 2024 Pulse Oximetry 96.00 % [facility] Feb 17 01:00 :00 EST 2024 Body Height 69.00 [in_i] [facility] Feb 17 01:00 :00 EST 2024 Systolic Blood Pressure 133.00 mm[Hg] Mon Feb 17 00:12:44 EST 2024 Diastolic Blood Pressure 61.00 mm[Hg] Mon Feb 17 00:12:44 EST 2024 Heart Rate 70.00 /min Mon Feb 17 00:12 :44 EST 5 Body temperature 98.30 [degF] [facility] Feb 17 00:1 2:44 EST 2024 Respiratory rate 18.00 /min [facility] Feb 17 00:1 2:44 EST 2024 Pulse Oximetry 96.00 % [facility] Feb 17 00:12 :44 EST 5 Body weight 187.20 [lb_av] Sun Feb 16 14:11 :03 EST 5 Systolic Blood Pressure 132.00 mm[Hg] Sun Feb 16 10:20:10 EST 5 Diastolic Blood Pressure 57.00 mm[Hg] Sun Feb 16 10:20:10 EST 2025 Body temperature 98.10 [degF] Sun Feb 16 10:2 0:10 EST 2025 Respiratory rate 16.00 /min Sun Feb 16 10:2 0:10 EST 5 Pulse Oximetry 91.00 % [place] Feb 16 10:20 :10 EST 2025 Heart Rate 66.00 /min Sun Feb 16 10:20 :10 EST 2024 Systolic Blood Pressure 138.00 mm[Hg] Sat Feb 15 23:43:15 EST 5 Diastolic Blood Pressure 65.00 mm[Hg] Sat Feb 15 23:43:15 EST 5 Heart Rate 72.00 /min Sat Feb 15 23:43 :15 EST 5 Body temperature 98.30 [degF] Sat Feb 15 23:4 3:15 EST 2024 Respiratory rate 18.00 /min Sat Feb 15 23:4 3:15 EST 2024 Pulse Oximetry 93.00 % Sat Feb 15 23:43 :15 EST 2024 Body weight 186.20 [lb_av] Sat Feb 15 12:52 :12 EST 2024 Systolic Blood Pressure 127.00 mm[Hg] Sat Feb 15 09:10:19 EST 2024 Diastolic Blood Pressure 58.00 mm[Hg] Sat Feb 15 09:10:19 EST 2024 Heart Rate 70.00 /min Sat Feb 15 09:10 :19 EST 2024 Body temperature 97.70 [degF] Sat Feb 15 09:1 0:19 EST 2024 Respiratory rate 16.00 /min Sat Feb 15 09:1 0:19 EST 2024 Pulse Oximetry 90.00 % Sat Feb 15 09:10 :19 EST 2024 Systolic Blood Pressure 121.00 mm[Hg] Fri Feb 14 22:30:20 EST 2024 Diastolic Blood Pressure 55.00 mm[Hg] Fri Feb 14 22:30:20 EST 2024 Heart Rate 70.00 /min Fri Feb 14 22:30 :20 EST 2024 Body temperature 97.80 [degF] Fri Feb 14 22:3 0:20 EST 5 Respiratory rate 18.00 /min Fri Feb 14 22:3 0:20 EST 2024 Pulse Oximetry 94.00 % Fri Feb 14 22:30 :20 EST 2024 Systolic Blood Pressure 132.00 mm[Hg] Fri Feb 14 13:52:51 EST 5 Diastolic Blood Pressure 59.00 mm[Hg] Fri Feb 14 13:52:51 EST 2024 Body weight 191.40 [lb_av] Fri Feb 14 13:52 :51 EST 202 Heart Rate 79.00 /min Fri Feb 14 13:52 :51 EST 2024 Body temperature 97.40 [degF] Fri Feb 14 13:5 2:51 EST 2024 Respiratory rate 20.00 /min Fri Feb 14 13:5 2:51 EST 2024 Pulse Oximetry 96.00 % Fri Feb 14 13:52 :51 EST 2024 Systolic Blood Pressure 148.00 mm[Hg] Amber Feb 13 22:20:37 EST 2024 Diastolic Blood Pressure 71.00 mm[Hg] Amber Feb 13 22:20:37 EST 2024 Heart Rate 97.00 /min Amber Feb 13 22:20 :37 EST 2024 Body temperature 97.80 [degF] Amber Feb 13 22:2 0:37 EST 2024 Respiratory rate 18.00 /min Amber Feb 13 22:2 0:37 EST 2024 Pulse Oximetry 95.00 % Amber Feb 13 22:20 :37 EST 2024 Body weight 191.60 [lb_av] Amber Feb 13 16:06 :44 EST 2024 Systolic Blood Pressure 135.00 mm[Hg] Amber Feb 13 09:33:37 EST 2024 Diastolic Blood Pressure 67.00 mm[Hg] Amber Feb 13 09:33:37 EST 2024 Heart Rate 76.00 /min Amber Feb 13 09:33 :37 EST 2024 Body temperature 97.60 [degF] Amber Feb 13 09:3 3:37 EST 2024 Respiratory rate 18.00 /min Amber Feb 13 09:3 3:37 EST 2024 Pulse Oximetry 92.00 % Amber Feb 13 09:33 :37 EST 2024 Systolic Blood Pressure 137.00 mm[Hg] Wed Feb 12 20:23:00 EST 2024 Diastolic Blood Pressure 58.00 mm[Hg] Wed Feb 12 20:23:00 EST 2024 Heart Rate 72.00 /min Wed Feb 12 20:23 :00 EST 2024 Body temperature 98.00 [degF] Wed Feb 12 20:2 3:00 EST 2024 Respiratory rate 20.00 /min Wed Feb 12 20:2 3:00 EST 2024 Pulse Oximetry 94.00 % Wed Feb 12 20:23 :00 EST 2024 Body weight 191.40 [lb_av] Wed Feb 12 11:48 :18 EST 2024 Systolic Blood Pressure 134.00 mm[Hg] Wed Feb 12 10:10:30 EST 5 Diastolic Blood Pressure 65.00 mm[Hg] Wed Feb 12 10:10:30 EST 2025 Heart Rate 74.00 /min Wed Feb 12 10:10 :30 EST 5 Body temperature 98.20 [degF] Wed Feb 12 10:1 0:30 EST 2025 Respiratory rate 18.00 /min Wed Feb 12 10:1 0:30 EST 2024 Pulse Oximetry 90.00 % Wed Feb 12 10:10 :30 EST 2025 Systolic Blood Pressure 131.00 mm[Hg] Wed Feb 12 00:13:11 EST 5 Diastolic Blood Pressure 51.00 mm[Hg] Wed Feb 12 00:13:11 EST 5 Heart Rate 80.00 /min Wed Feb 12 00:13 :11 EST 5 Body temperature 98.20 [degF] Wed Feb 12 00:1 3:11 EST 5 Respiratory rate 22.00 /min Wed Feb 12 00:1 3:11 EST 2024 Pulse Oximetry 94.00 % Wed Feb 12 00:13 :11 EST 2024 Body weight 192.20 [lb_av] Wed Feb 11 14:46 :58 EST 5 Systolic Blood Pressure 140.00 mm[Hg] e Feb 11 08:50:19 EST 5 Diastolic Blood Pressure 56.00 mm[Hg] Wed Feb 11 08:50:19 EST 2025 Heart Rate 75.00 /min Wed Feb 11 08:50 :19 EST 5 Body temperature 98.10 [degF] Wed Feb 11 08:5 0:19 EST 2025 Respiratory rate 20.00 /min Wed Feb 11 08:5 0:19 EST 5 Pulse Oximetry 93.00 % Wed Feb 11 08:50 :19 EST 5 Systolic Blood Pressure 129.00 mm[Hg] Mon Feb 10 23:39:10 EST 5 Diastolic Blood Pressure 66.00 mm[Hg] Mon Feb 10 23:39:10 EST 2025 Heart Rate 77.00 /min Wed Feb 10 23:39 :10 EST 5 Body temperature 98.20 [degF] Mon Feb 10 23:3 9:10 EST 2025 Respiratory rate 18.00 /min Mon Feb 10 23:3 9:10 EST 2025 Pulse Oximetry 95.00 % Mon Feb 10 23:39 :10 EST 2024 Body weight 195.00 [lb_av] Mon Feb 10 12:31 :56 EST 2024 Systolic Blood Pressure 144.00 mm[Hg] Mon Feb 10 10:14:18 EST 2024 Diastolic Blood Pressure 70.00 mm[Hg] Mon Feb 10 10:14:18 EST 2024 Heart Rate 83.00 /min Mon Feb 10 10:14 :18 EST 2024 Body temperature 98.30 [degF] Mon Feb 10 10:1 4:18 EST 2024 Respiratory rate 18.00 /min Mon Feb 10 10:1 4:18 EST 2024 Pulse Oximetry 95.00 % Mon Feb 10 10:14 :18 EST 2024 Systolic Blood Pressure 131.00 mm[Hg] Sun Feb 20:44:43 EST 2024 Diastolic Blood Pressure 52.00 mm[Hg] Sun Feb 20:44:43 EST 2024 Heart Rate 73.00 /min Sun Feb 20:44 :43 EST 2024 Body temperature 98.00 [degF] Sun Feb 20:4 4:43 EST 2024 Respiratory rate 18.00 /min Sun Feb 20:4 4:43 EST 2024 Pulse Oximetry 95.00 % Sun Feb 20:44 :43 EST 2024 Body weight 198.10 [lb_av] Sun Feb 17:22 :07 EST 2024 Systolic Blood Pressure 130.00 mm[Hg] Sun Feb 15:00:05 EST 2024 Diastolic Blood Pressure 55.00 mm[Hg] Sun Feb 15:00:05 EST 2024 Heart Rate 84.00 /min Sun Feb 15:00 :05 EST 2024 Body temperature 97.10 [degF] Sun Feb 15:0 0:05 EST 2024 Respiratory rate 20.00 /min Sun Feb 15:0 0:05 EST 2024 Pulse Oximetry 96.00 % Sun Feb 15:00 :05 EST 2024 Systolic Blood Pressure 128.00 mm[Hg] Sun Feb 09 00:08:28 EST 2024 Diastolic Blood Pressure 61.00 mm[Hg] Sun Feb 09 00:08:28 EST 2024 Heart Rate 86.00 /min Sun Feb 09 00:08 :28 EST 2024 Body temperature 97.70 [degF] Sun Feb 09 00:0 8:28 EST 2024 Respiratory rate 20.00 /min Sun Feb 09 00:0 8:28 EST 2024 Pulse Oximetry 95.00 % Sun Feb 00:08 :28 EST 2024 Body weight 198.60 [lb_av] Sat Feb 08 14:12 :45 EST 2024 Systolic Blood Pressure 121.00 mm[Hg] Sat Feb 08 10:45:04 EST 2024 Diastolic Blood Pressure 57.00 mm[Hg] Sat Feb 08 10:45:04 EST 2024 Heart Rate 71.00 /min Sat Feb 08 10:45 :04 EST 2024 Body temperature 98.00 [degF] Sat Feb 08 10:4 5:04 EST 2024 Respiratory rate 18.00 /min Sat Feb 08 10:4 5:04 EST 2024 Pulse Oximetry 92.00 % Sat Feb 08 10:45 :04 EST 2024 Systolic Blood Pressure 143.00 mm[Hg] Fri Feb 07 21:58:37 EST 2024 Diastolic Blood Pressure 70.00 mm[Hg] Fri Feb 21:58:37 EST 2024 Heart Rate 76.00 /min Wed Feb 21:58 :37 EST 2024 Body temperature 97.50 [degF] Fri Feb 07 21:5 8:37 EST 2024 Respiratory rate 20.00 /min Wed Feb 21:5 8:37 EST 2024 Pulse Oximetry 93.00 % Wedb 21:58 :37 EST 2024 Body weight 197.80 [lb_av] Wed Feb 07 15:09 :32 EST 2024 Systolic Blood Pressure 136.00 mm[Hg] Wed Feb 07 12:22:14 EST 5 Diastolic Blood Pressure 60.00 mm[Hg] Wed Feb 07 12:22:14 EST 5 Heart Rate 81.00 /min Wed Feb 07 12:22 :14 EST 2024 Body temperature 98.00 [degF] Wed Feb 07 12:2 2:14 EST 2024 Respiratory rate 18.00 /min Wed Feb 12:2 2:14 EST 2024 Pulse Oximetry 92.00 % Wedb 07 12:22 :14 EST 2024 Systolic Blood Pressure 137.00 mm[Hg] Fri Feb 07 00:13:13 EST 5 Diastolic Blood Pressure 57.00 mm[Hg] Fri Feb 00:13:13 EST 2024 Heart Rate 70.00 /min WedAug 11 00:13 :13 EST 2024 Body temperature 97.70 [degF] WedAug 11 00:1 3:13 EST 2024 Respiratory rate 16.00 /min WedAug 11 00:1 3:13 EST 2024 Pulse Oximetry 93.00 % WedAug 11 00:13 :13 EST 2024 Systolic Blood Pressure 133.00 mm[Hg] Amber Feb 06 09:59:32 EST 2024 Diastolic Blood Pressure 51.00 mm[Hg] Amber Feb 09:59:32 EST 2024 Body weight 198.40 [lb_av] Amber b 09:59 :32 EST 2024 Heart Rate 69.00 /min Amber b 09:59 :32 EST 2024 Body temperature 97.80 [degF] Amberb 06 09:5 9:32 EST 2024 Respiratory rate 18.00 /min Amber Feb 09:5 9:32 2024 Pulse Oximetry 91.00 % Amberb 09:59 :32 EST 2024 Systolic Blood Pressure 144.00 mm[Hg] Wed Feb 05 22:59:15 EST 2024 Diastolic Blood Pressure 59.00 mm[Hg] Wed Feb 22:59:15 EST 2024 Heart Rate 67.00 /min Wed Feb 05 22:59 :15 EST 2024 Body temperature 97.80 [degF] Wed Feb 05 22:5 9:15 EST 2024 Respiratory rate 18.00 /min Wed Feb 05 22:5 9:15 EST 2024 Pulse Oximetry 93.00 % Wed Feb 22:59 :15 EST 2024 Body weight 199.80 [lb_av] Wed Feb 05 09:39 :21 EST 2024 Systolic Blood Pressure 131.00 mm[Hg] Wed Feb 05 08:30:21 EST 2024 Diastolic Blood Pressure 58.00 mm[Hg] Wed Feb 05 08:30:21 EST 2024 Heart Rate 75.00 /min Wed Feb 05 08:30 :21 EST 2024 Body temperature 97.60 [degF] Wed Feb 05 08:3 0:21 EST 2024 Respiratory rate 18.00 /min Wed Feb 05 08:3 0:21 EST 2024 Pulse Oximetry 92.00 % WedAug 09 08:30 :21 EST 2024 Systolic Blood Pressure 134.00 mm[Hg] WedAug 08 19:51:51 EST 2024 Diastolic Blood Pressure 58.00 mm[Hg] WedAug 08 19:51:51 EST 2024 Heart Rate 72.00 /min WedAug 08 19:51 :51 EST 2024 Body temperature 98.20 [degF] WedAug 08 19:5 1:51 EST 2024 Respiratory rate 18.00 /min WedAug 08 19:5 1:51 EST 2024 Pulse Oximetry 92.00 % WedAug 08 19:51 :51 EST 2024 Body weight 202.40 [lb_av] WedAug 08 13:33 :22 EST 2024 Systolic Blood Pressure 132.00 mm[Hg] WedAug 08 11:47:39 EST 2024 Diastolic Blood Pressure 54.00 mm[Hg] WedAug 08 11:47:39 EST 2024 Heart Rate 73.00 /min WedAug 08 11:47 :39 EST 2024 Body temperature 97.70 [degF] WedAug 08 11:4 7:39 EST 2024 Respiratory rate 20.00 /min WedAug 08 11:4 7:39 EST 2024 Pulse Oximetry 95.00 % WedAug 08 11:47 :39 EST 2024 Systolic Blood Pressure 140.00 mm[Hg] WedAug 08 03:24:55 EST 2024 Diastolic Blood Pressure 53.00 mm[Hg] WedAug 08 03:24:55 EST 2024 Heart Rate 73.00 /min WedAug 08 03:24 :55 EST 2024 Body temperature 98.50 [degF] WedAug 08 03:2 4:55 EST 2024 Respiratory rate 18.00 /min Wed 04 03:2 4:55 EST 2024 Pulse Oximetry 92.00 % WedAug 08 03:24 :55 EST 2024 Body weight 202.60 [lb_av] WedAug 07 14:14 :10 EST 2024 Body Height 66.00 [in_i] WedAug 07 12:01 :05 EST 2024 Systolic Blood Pressure 125.00 mm[Hg] WedAug 07 09:48:14 EST 2025 Diastolic Blood Pressure 59.00 mm[Hg] Mon Feb 09:48:14 EST 2024 Heart Rate 71.00 /min Mon Feb 09:48 :14 EST 2024 Body temperature 97.70 [degF] Mon b 09:4 8:14 EST 2024 Respiratory rate 18.00 /min Mon Feb 09:4 8:14 EST 2024 Pulse Oximetry 93.00 % Mon b 09:48 :14 EST 2024 Systolic Blood Pressure 138.00 mm[Hg] Mon b 01:10:54 EST 2024 Diastolic Blood Pressure 61.00 mm[Hg] Wedb 01:10:54 EST 2024 Heart Rate 62.00 /min Mon b 01:10 :54 EST 2024 Body temperature 97.80 [degF] Wedb 01:1 0:54 EST 2024 Respiratory rate 18.00 /min Wedb 01:1 0:54 EST 2024 Pulse Oximetry 93.00 % Wedb 01:10 :54 EST 2024 Body weight 200.60 [lb_av] Sun Feb 08:49 :14 EST 2024 Systolic Blood Pressure 132.00 mm[Hg] Sun Feb 08:49:07 EST 2024 Diastolic Blood Pressure 63.00 mm[Hg] Sun Feb 08:49:07 EST 2024 Heart Rate 66.00 /min Sun Feb 08:49 :07 EST 2024 Body temperature 97.60 [degF] Sun Feb 02 08:4 9:07 EST 2024 Respiratory rate 18.00 /min Sun Feb 02 08:4 9:07 EST 2024 Pulse Oximetry 93.00 % Sun Feb 02 08:49 :07 EST 2024 Systolic Blood Pressure 127.00 mm[Hg] Sun Feb 02 00:52:34 EST 2024 Diastolic Blood Pressure 62.00 mm[Hg] Sun Feb 02 00:52:34 EST 2024 Heart Rate 69.00 /min Sun Feb 02 00:52 :34 EST 2024 Body temperature 98.20 [degF] Sun Feb 02 00:5 2:34 EST 2024 Respiratory rate 20.00 /min Sun Feb 02 00:5 2:34 EST 2024 Pulse Oximetry 93.00 % Sun Feb 02 00:52 :34 EST 2024 Systolic Blood Pressure 123.00 mm[Hg] [facility] Aug 05 11:28:00 EST 2024 Diastolic Blood Pressure 53.00 mm[Hg] [facility] Aug 05 11:28:00 EST 2024 Heart Rate 68.00 /min [facility] Aug 05 11:28 :00 EST 2024 Body temperature 97.40 [degF] [facility] Aug 05 11:2 8:00 EST 2024 Respiratory rate 18.00 /min [facility] Aug 05 11:2 8:00 EST 2024 Pulse Oximetry 92.00 % [facility] Aug 05 11:28 :00 EST 2024 Systolic Blood Pressure 120.00 mm[Hg] WedNovember 26 09:29:30 EDT 2023 Diastolic Blood Pressure 50.00 mm[Hg] WedNovember 26 09:29:30 EDT 2023 Heart Rate 107.00 /min WedNovember 26 09:29 :30 EDT 2023 Body temperature 98.20 [degF] WedNovember 26 09:2 9:30 EDT 2023 Respiratory rate 18.00 /min WedNovember 26 09:2 9:30 EDT 2023 Pulse Oximetry 95.00 % WedNovember 26 09:29 :30 EDT 2023 Systolic Blood Pressure 148.00 mm[Hg] WedNovember 26 02:57:04 EDT 2023 Diastolic Blood Pressure 58.00 mm[Hg] WedNovember 26 02:57:04 EDT 2023 Heart Rate 76.00 /min WedNovember 26 02:57 :04 EDT 2023 Body temperature 98.30 [degF] WedNovember 26 02:5 7:04 EDT 2023 Respiratory rate 18.00 /min WedNovember 26 02:5 7:04 EDT 2023 Pulse Oximetry 97.00 % WedNovember 26 02:57 :04 EDT 2023 Body weight 202.40 [lb_av] WedNovember 25 14:37 :40 EDT 2023 Systolic Blood Pressure 152.00 mm[Hg] WedNovember 25 09:02:01 EDT 2023 Diastolic Blood Pressure 64.00 mm[Hg] WedNovember 25 09:02:01 EDT 2023 Heart Rate 79.00 /min WedNovember 25 09:02 :01 EDT 2023 Body temperature 97.90 [degF] WedNovember 25 09:0 2:01 EDT 2023 Respiratory rate 18.00 /min WedNovember 25 09:0 2:01 EDT 2023 Pulse Oximetry 90.00 % WedNovember 25 09:02 :01 EDT 2023 Systolic Blood Pressure 124.00 mm[Hg] WedNovember 24 23:48:47 EDT 2023 Diastolic Blood Pressure 56.00 mm[Hg] WedNovember 24 23:48:47 EDT 2023 Heart Rate 76.00 /min WedNovember 24 23:48 :47 EDT 2023 Body temperature 97.70 [degF] WedNovember 24 23:4 8:47 EDT 2023 Respiratory rate 98.00 /min WedNovember 24:4 8:47 EDT 2023 Pulse Oximetry 98.00 % WedNovember 24 23:48 :47 EDT 2023 Body weight 202.20 [lb_av] WedNovember 24 15:51 :19 EDT 2023 Systolic Blood Pressure 140.00 mm[Hg] WedNovember 24 08:50:00 EDT 2023 Diastolic Blood Pressure 54.00 mm[Hg] WedNovember 24 08:50:00 EDT 2023 Heart Rate 69.00 /min WedNovember 24 08:50 :00 EDT 2023 Body temperature 97.30 [degF] WedNovember 24 08:5 0:00 EDT 2023 Respiratory rate 18.00 /min WedNovember 24 08:5 0:00 EDT 2023 Pulse Oximetry 95.00 % WedNovember 24 08:50 :00 EDT 2023 Systolic Blood Pressure 137.00 mm[Hg] WedNovember 23 23:31:42 EDT 2023 Diastolic Blood Pressure 50.00 mm[Hg] WedNovember 23 23:31:42 EDT 2023 Heart Rate 77.00 /min WedNovember 23 23:31 :42 EDT 2023 Body temperature 98.30 [degF] WedNovember 23 23:3 1:42 EDT 2023 Respiratory rate 18.00 /min WedNovember 23 23:3 1:42 EDT 2023 Pulse Oximetry 95.00 % WedNovember 23 23:31 :42 EDT 2023 Body weight 202.40 [lb_av] WedNovember 23 13:20 :33 EDT 2023 Systolic Blood Pressure 139.00 mm[Hg] WedNovember 23 08:55:11 EDT 2023 Diastolic Blood Pressure 61.00 mm[Hg] WedNovember 23 08:55:11 EDT 2023 Heart Rate 68.00 /min WedNovember 23 08:55 :11 EDT 2023 Body temperature 97.80 [degF] WedNovember 23 08:5 5:11 EDT 2023 Respiratory rate 20.00 /min WedNovember 23 08:5 5:11 EDT 2023 Pulse Oximetry 98.00 % WedNovember 23 08:55 :11 EDT 2023 Systolic Blood Pressure 157.00 mm[Hg] WedNovember 22 21:41:13 EDT 2023 Diastolic Blood Pressure 76.00 mm[Hg] WedNovember 22 21:41:13 EDT 2023 Heart Rate 81.00 /min WedNovember 22 21:41 :13 EDT 2023 Body temperature 98.40 [degF] WedNovember 22 21:4 1:13 EDT 2023 Respiratory rate 18.00 /min WedNovember 22 21:4 1:13 EDT 2023 Pulse Oximetry 93.00 % WedNovember 22 21:41 :13 EDT 2023 Body weight 202.00 [lb_av] WedNovember 22 12:54 :55 EDT 2023 Systolic Blood Pressure 140.00 mm[Hg] WedNovember 22 09:12:40 EDT 2023 Diastolic Blood Pressure 62.00 mm[Hg] WedNovember 22 09:12:40 EDT 2023 Heart Rate 72.00 /min WedNovember 22 09:12 :40 EDT 2023 Body temperature 98.60 [degF] WedNovember 22 09:1 2:40 EDT 2023 Respiratory rate 18.00 /min WedNovember 22 09:1 2:40 EDT 2023 Pulse Oximetry 91.00 % WedNovember 22 09:12 :40 EDT 2023 Systolic Blood Pressure 134.00 mm[Hg] WedNovember 21 19:32:23 EDT 2023 Diastolic Blood Pressure 49.00 mm[Hg] WedNovember 21 19:32:23 EDT 2023 Heart Rate 72.00 /min WedNovember 21 19:32 :23 EDT 2023 Body temperature 98.00 [degF] WedNovember 21 19:3 2:23 EDT 2023 Respiratory rate 18.00 /min WedNovember 21 19:3 2:23 EDT 2023 Pulse Oximetry 96.00 % WedNovember 21 19:32 :23 EDT 2023 Body weight 203.40 [lb_av] WedNovember 21 10:02 :20 EDT 2023 Systolic Blood Pressure 149.00 mm[Hg] WedNovember 21 09:03:14 EDT 2023 Diastolic Blood Pressure 59.00 mm[Hg] WedNovember 21 09:03:14 EDT 2023 Heart Rate 80.00 /min WedNovember 21 09:03 :14 EDT 2023 Body temperature 97.70 [degF] WedNovember 21 09:0 3:14 EDT 2023 Respiratory rate 18.00 /min WedNovember 21 09:0 3:14 EDT 2023 Pulse Oximetry 98.00 % WedNovember 21 09:03 :14 EDT 2023 Systolic Blood Pressure 143.00 mm[Hg] WedNovember 20 22:04:34 EDT 2023 Diastolic Blood Pressure 57.00 mm[Hg] WedNovember 20 22:04:34 EDT 2023 Heart Rate 73.00 /min WedNovember 20 22:04 :34 EDT 2023 Body temperature 98.40 [degF] WedNovember 20 22:0 4:34 EDT 2023 Respiratory rate 18.00 /min WedNovember 20 22:0 4:34 EDT 2023 Pulse Oximetry 95.00 % WedNovember 20 22:04 :34 EDT 2023 Body weight 201.30 [lb_av] WedNovember 20 14:07 :14 EDT 2023 Systolic Blood Pressure 123.00 mm[Hg] WedNovember 20 10:06:42 EDT 2023 Diastolic Blood Pressure 52.00 mm[Hg] WedNovember 20 10:06:42 EDT 2023 Heart Rate 68.00 /min WedNovember 20 10:06 :42 EDT 2023 Body temperature 98.50 [degF] WedNovember 20 10:0 6:42 EDT 2023 Respiratory rate 18.00 /min WedNovember 20 10:0 6:42 EDT 2023 Pulse Oximetry 94.00 % WedNovember 20 10:06 :42 EDT 2023 Systolic Blood Pressure 141.00 mm[Hg] WedNovember 20 00:14:42 EDT 2023 Diastolic Blood Pressure 54.00 mm[Hg] WedNovember 20 00:14:42 EDT 2023 Heart Rate 68.00 /min WedNovember 20 00:14 :42 EDT 2023 Body temperature 97.10 [degF] WedNovember 20 00:1 4:42 EDT 2023 Respiratory rate 18.00 /min WedNovember 20 00:1 4:42 EDT 2023 Pulse Oximetry 98.00 % WedNovember 20 00:14 :42 EDT 2023 Body weight 201.80 [lb_av] WedNovember 19 11:59 :41 EDT 2023 Systolic Blood Pressure 114.00 mm[Hg] WedNovember 19 10:36:18 EDT 2023 Diastolic Blood Pressure 45.00 mm[Hg] WedNovember 19 10:36:18 EDT 2023 Heart Rate 91.00 /min WedNovember 19 10:36 :18 EDT 2023 Body temperature 96.30 [degF] WedNovember 19 10:3 6:18 EDT 2023 Respiratory rate 20.00 /min WedNovember 19 10:3 6:18 EDT 2023 Pulse Oximetry 97.00 % WedNovember 19 10:36 :18 EDT 2023 Systolic Blood Pressure 136.00 mm[Hg] WedNovember 19 02:36:56 EDT 2023 Diastolic Blood Pressure 57.00 mm[Hg] WedNovember 19 02:36:56 EDT 2023 Heart Rate 89.00 /min WedNovember 19 02:36 :56 EDT 2023 Body temperature 98.00 [degF] WedNovember 19 02:3 6:56 EDT 2023 Respiratory rate 18.00 /min WedNovember 19 02:3 6:56 EDT 2023 Pulse Oximetry 92.00 % WedNovember 19 02:36 :56 EDT 2023 Body weight 203.40 [lb_av] WedNovember 18 11:32 :11 EDT 2023 Systolic Blood Pressure 121.00 mm[Hg] WedNovember 18 08:45:33 EDT 2023 Diastolic Blood Pressure 50.00 mm[Hg] WedNovember 18 08:45:33 EDT 2023 Heart Rate 65.00 /min WedNovember 18 08:45 :33 EDT 2023 Body temperature 98.00 [degF] WedNovember 18 08:4 5:33 EDT 2023 Respiratory rate 18.00 /min WedNovember 18 08:4 5:33 EDT 2023 Pulse Oximetry 93.00 % WedNovember 18 08:45 :33 EDT 2023 Systolic Blood Pressure 109.00 mm[Hg] WedNovember 18 00:38:52 EDT 2023 Diastolic Blood Pressure 83.00 mm[Hg] WedNovember 18 00:38:52 EDT 2023 Heart Rate 69.00 /min WedNovember 18 00:38 :52 EDT 2023 Body temperature 97.50 [degF] WedNovember 18 00:3 8:52 EDT 2023 Respiratory rate 20.00 /min WedNovember 18 00:3 8:52 EDT 2023 Pulse Oximetry 95.00 % WedNovember 18 00:38 :52 EDT 2023 Body weight 203.20 [lb_av] WedNovember 17 16:11 :44 EDT 2023 Systolic Blood Pressure 110.00 mm[Hg] WedNovember 17 11:24:56 EDT 2023 Diastolic Blood Pressure 41.00 mm[Hg] WedNovember 17 11:24:56 EDT 2023 Heart Rate 66.00 /min WedNovember 17 11:24 :56 EDT 2023 Body temperature 96.80 [degF] WedNovember 17 11:2 4:56 EDT 2023 Respiratory rate 18.00 /min WedNovember 17 11:2 4:56 EDT 2023 Pulse Oximetry 96.00 % WedNovember 17 11:24 :56 EDT 2023 Systolic Blood Pressure 124.00 mm[Hg] WedNovember 16 21:42:42 EDT 2023 Diastolic Blood Pressure 55.00 mm[Hg] WedNovember 16 21:42:42 EDT 2023 Heart Rate 74.00 /min WedNovember 16 21:42 :42 EDT 2023 Body temperature 96.80 [degF] WedNovember 16 21:4 2:42 EDT 2023 Respiratory rate 18.00 /min WedNovember 16 21:4 2:42 EDT 2023 Pulse Oximetry 94.00 % WedNovember 16 21:42 :42 EDT 2023 Systolic Blood Pressure 147.00 mm[Hg] WedNovember 16 08:19:24 EDT 2023 Diastolic Blood Pressure 66.00 mm[Hg] WedNovember 16 08:19:24 EDT 2023 Heart Rate 67.00 /min WedNovember 16 08:19 :24 EDT 2023 Body temperature 97.90 [degF] WedNovember 16 08:1 9:24 EDT 2023 Respiratory rate 16.00 /min WedNovember 16 08:1 9:24 EDT 2023 Pulse Oximetry 96.00 % WedNovember 16 08:19 :24 EDT 2023 Body weight 204.00 [lb_av] WedNovember 16 08:05 :01 EDT 2023 Systolic Blood Pressure 150.00 mm[Hg] WedNovember 16 01:54:54 EDT 2023 Diastolic Blood Pressure 61.00 mm[Hg] WedNovember 16 01:54:54 EDT 2023 Heart Rate 70.00 /min WedNovember 16 01:54 :54 EDT 2023 Body temperature 98.30 [degF] WedNovember 16 01:5 4:54 EDT 2023 Respiratory rate 18.00 /min WedNovember 16 01:5 4:54 EDT 2023 Pulse Oximetry 0.00 % WedNovember 16 01:54 :54 EDT 2023 Systolic Blood Pressure 141.00 mm[Hg] WedNovember 15 11:04:47 EDT 2023 Diastolic Blood Pressure 77.00 mm[Hg] WedNovember 15 11:04:47 EDT 2023 Heart Rate 94.00 /min WedNovember 15 11:04 :47 EDT 2023 Body temperature 97.90 [degF] WedNovember 15 11:0 4:47 EDT 2023 Respiratory rate 18.00 /min WedNovember 15 11:0 4:47 EDT 2023 Pulse Oximetry 95.00 % WedNovember 15 11:04 :47 EDT 2023 Systolic Blood Pressure 152.00 mm[Hg] WedNovember 14 21:57:12 EDT 2023 Diastolic Blood Pressure 69.00 mm[Hg] WedNovember 14 21:57:12 EDT 2023 Heart Rate 73.00 /min WedNovember 14 21:57 :12 EDT 2023 Body temperature 98.20 [degF] WedNovember 14 21:5 7:12 EDT 2023 Respiratory rate 20.00 /min WedNovember 14 21:5 7:12 EDT 2023 Pulse Oximetry 95.00 % WedNovember 14 21:57 :12 EDT 2023 Body weight 204.30 [lb_av] WedNovember 14 19:08 :19 EDT 2023 Systolic Blood Pressure 149.00 mm[Hg] WedNovember 14 08:44:52 EDT 2023 Diastolic Blood Pressure 52.00 mm[Hg] WedNovember 14 08:44:52 EDT 2023 Heart Rate 69.00 /min WedNovember 14 08:44 :52 EDT 2023 Body temperature 97.90 [degF] WedNovember 14 08:4 4:52 EDT 2023 Respiratory rate 18.00 /min WedNovember 14 08:4 4:52 EDT 2023 Pulse Oximetry 94.00 % WedNovember 14 08:44 :52 EDT 2023 Systolic Blood Pressure 155.00 mm[Hg] WedNovember 13 21:39:22 EDT 2023 Diastolic Blood Pressure 67.00 mm[Hg] WedNovember 13 21:39:22 EDT 2023 Heart Rate 69.00 /min WedNovember 13 21:39 :22 EDT 2023 Body temperature 97.80 [degF] WedNovember 13 21:3 9:22 EDT 2023 Respiratory rate 20.00 /min WedNovember 13:3 9:22 EDT 2023 Pulse Oximetry 97.00 % WedNovember 13 21:39 :22 EDT 2023 Systolic Blood Pressure 155.00 mm[Hg] WedNovember 13 09:16:51 EDT 2023 Diastolic Blood Pressure 67.00 mm[Hg] WedNovember 13 09:16:51 EDT 2023 Body weight 203.20 [lb_av] WedNovember 13 09:16 :51 EDT 2023 Heart Rate 69.00 /min WedNovember 13 09:16 :51 EDT 2023 Body temperature 97.80 [degF] WedNovember 13 09:1 6:51 EDT 2023 Respiratory rate 20.00 /min WedNovember 13 09:1 6:51 EDT 2023 Pulse Oximetry 97.00 % WedNovember 13 09:16 :51 EDT 2023 Systolic Blood Pressure 130.00 mm[Hg] WedNovember 12 23:35:19 EDT 2023 Diastolic Blood Pressure 62.00 mm[Hg] WedNovember 12 23:35:19 EDT 2023 Heart Rate 68.00 /min WedNovember 12 23:35 :19 EDT 2023 Body temperature 97.60 [degF] WedNovember 12 23:3 5:19 EDT 2023 Respiratory rate 18.00 /min WedNovember 12 23:3 5:19 EDT 2023 Pulse Oximetry 94.00 % WedNovember 12 23:35 :19 EDT 2023 Systolic Blood Pressure 126.00 mm[Hg] WedNovember 12 11:47:05 EDT 2023 Diastolic Blood Pressure 59.00 mm[Hg] WedNovember 12 11:47:05 EDT 2023 Heart Rate 63.00 /min WedNovember 12 11:47 :05 EDT 2023 Body temperature 97.40 [degF] WedNovember 12 11:4 7:05 EDT 2023 Respiratory rate 18.00 /min WedNovember 12 11:4 7:05 EDT 2023 Pulse Oximetry 95.00 % WedNovember 12 11:47 :05 EDT 2023 Body weight 202.80 [lb_av] WedNovember 12 10:35 :55 EDT 2023 Systolic Blood Pressure 163.00 mm[Hg] WedNovember 12 02:11:00 EDT 2023 Diastolic Blood Pressure 61.00 mm[Hg] WedNovember 12 02:11:00 EDT 2023 Heart Rate 71.00 /min WedNovember 12 02:11 :00 EDT 2023 Body temperature 97.80 [degF] WedNovember 12 02:1 1:00 EDT 2023 Respiratory rate 18.00 /min WedNovember 12 02:1 1:00 EDT 2023 Pulse Oximetry 92.00 % WedNovember 12 02:11 :00 EDT 2023 Systolic Blood Pressure 171.00 mm[Hg] WedNovember 11 13:26:42 EDT 2023 Diastolic Blood Pressure 75.00 mm[Hg] WedNovember 11 13:26:42 EDT 2023 Body weight 200.30 [lb_av] WedNovember 11 13:26 :42 EDT 2023 Heart Rate 65.00 /min WedNovember 11 13:26 :42 EDT 2023 Body temperature 97.40 [degF] WedNovember 11 13:2 6:42 EDT 2023 Respiratory rate 18.00 /min WedNovember 11 13:2 6:42 EDT 2023 Pulse Oximetry 94.00 % WedNovember 11 13:26 :42 EDT 2023 Systolic Blood Pressure 164.00 mm[Hg] WedNovember 11 00:14:30 EDT 2023 Diastolic Blood Pressure 65.00 mm[Hg] WedNovember 11 00:14:30 EDT 2023 Heart Rate 80.00 /min WedNovember 11 00:14 :30 EDT 2023 Body temperature 97.30 [degF] WedNovember 11 00:1 4:30 EDT 2023 Respiratory rate 20.00 /min WedNovember 11 00:1 4:30 EDT 2023 Pulse Oximetry 93.00 % WedNovember 11 00:14 :30 EDT 2023 Body weight 200.00 [lb_av] WedNovember 10 15:15 :31 EDT 2023 Systolic Blood Pressure 136.00 mm[Hg] WedNovember 10 08:37:29 EDT 2023 Diastolic Blood Pressure 53.00 mm[Hg] WedNovember 10 08:37:29 EDT 2023 Heart Rate 66.00 /min WedNovember 10 08:37 :29 EDT 2023 Body temperature 98.00 [degF] WedNovember 10 08:3 7:29 EDT 2023 Respiratory rate 18.00 /min WedNovember 10 08:3 7:29 EDT 2023 Pulse Oximetry 94.00 % WedNovember 10 08:37 :29 EDT 2023 Systolic Blood Pressure 139.00 mm[Hg] WedNovember 09 22:14:30 EDT 2023 Diastolic Blood Pressure 75.00 mm[Hg] WedNovember 09 22:14:30 EDT 2023 Heart Rate 81.00 /min WedNovember 09 22:14 :30 EDT 2023 Body temperature 98.50 [degF] WedNovember 09 22:1 4:30 EDT 2023 Respiratory rate 20.00 /min WedNovember 09 22:1 4:30 EDT 2023 Pulse Oximetry 99.00 % WedNovember 09 22:14 :30 EDT 2023 Systolic Blood Pressure 134.00 mm[Hg] WedNovember 09 08:16:17 EDT 2023 Diastolic Blood Pressure 89.00 mm[Hg] WedNovember 09 08:16:17 EDT 2023 Heart Rate 80.00 /min WedNovember 09 08:16 :17 EDT 2023 Body temperature 97.80 [degF] WedNovember 09 08:1 6:17 EDT 2023 Respiratory rate 18.00 /min WedNovember 09 08:1 6:17 EDT 2023 Pulse Oximetry 95.00 % WedNovember 09 08:16 :17 EDT 2023 Body weight 198.00 [lb_av] WedNovember 09 07:50 :30 EDT 2023 Systolic Blood Pressure 146.00 mm[Hg] WedNovember 08 22:35:44 EDT 2023 Diastolic Blood Pressure 77.00 mm[Hg] WedNovember 08 22:35:44 EDT 2023 Heart Rate 75.00 /min WedNovember 08 22:35 :44 EDT 2023 Body temperature 98.50 [degF] WedNovember 08 22:3 5:44 EDT 2023 Respiratory rate 20.00 /min WedNovember 08 22:3 5:44 EDT 2023 Pulse Oximetry 91.00 % WedNovember 08 22:35 :44 EDT 2023 Body weight 198.00 [lb_av] WedNovember 08 11:05 :09 EDT 2023 Systolic Blood Pressure 151.00 mm[Hg] WedNovember 08 10:02:29 EDT 2023 Diastolic Blood Pressure 83.00 mm[Hg] WedNovember 08 10:02:29 EDT 2023 Heart Rate 84.00 /min WedNovember 08 10:02 :29 EDT 2023 Body temperature 98.00 [degF] WedNovember 08 10:0 2:29 EDT 2023 Respiratory rate 18.00 /min WedNovember 08 10:0 2:29 EDT 2023 Pulse Oximetry 95.00 % WedNovember 08 10:02 :29 EDT 2023 Systolic Blood Pressure 136.00 mm[Hg] WedNovember 07 22:16:32 EDT 2023 Diastolic Blood Pressure 70.00 mm[Hg] WedNovember 07 22:16:32 EDT 2023 Heart Rate 68.00 /min WedNovember 07 22:16 :32 EDT 2023 Body temperature 98.50 [degF] WedNovember 07 22:1 6:32 EDT 2023 Respiratory rate 20.00 /min WedNovember 07 22:1 6:32 EDT 2023 Pulse Oximetry 96.00 % WedNovember 07 22:16 :32 EDT 2023 Body weight 197.80 [lb_av] WedNovember 07 13:51 :53 EDT 2023 Systolic Blood Pressure 143.00 mm[Hg] WedNovember 07 10:28:13 EDT 2023 Diastolic Blood Pressure 72.00 mm[Hg] WedNovember 07 10:28:13 EDT 2023 Heart Rate 89.00 /min WedNovember 07 10:28 :13 EDT 2023 Body temperature 98.70 [degF] WedNovember 07 10:2 8:13 EDT 2023 Respiratory rate 18.00 /min WedNovember 07 10:2 8:13 EDT 2023 Pulse Oximetry 93.00 % WedNovember 07 10:28 :13 EDT 2023 Systolic Blood Pressure 144.00 mm[Hg] WedNovember 06 23:08:10 EDT 2023 Diastolic Blood Pressure 68.00 mm[Hg] WedNovember 06 23:08:10 EDT 2023 Heart Rate 71.00 /min WedNovember 06 23:08 :10 EDT 2023 Body temperature 97.90 [degF] WedNovember 06 23:0 8:10 EDT 2023 Respiratory rate 20.00 /min WedNovember 06 23:0 8:10 EDT 2023 Pulse Oximetry 95.00 % WedNovember 06 23:08 :10 EDT 2023 Systolic Blood Pressure 133.00 mm[Hg] WedNovember 06 09:20:58 EDT 2023 Diastolic Blood Pressure 83.00 mm[Hg] WedNovember 06 09:20:58 EDT 2023 Heart Rate 62.00 /min WedNovember 06 09:20 :58 EDT 2023 Body temperature 97.60 [degF] WedNovember 06 09:2 0:58 EDT 2023 Respiratory rate 16.00 /min WedNovember 06 09:2 0:58 EDT 2023 Pulse Oximetry 96.00 % WedNovember 06 09:20 :58 EDT 2023 Body weight 1972.00 [lb_av] WedNovember 06 09:17 :39 EDT 2023 Systolic Blood Pressure 148.00 mm[Hg] [facility] November 05 22:01:39 EDT 2023 Diastolic Blood Pressure 73.00 mm[Hg] WedNovember 05 22:01:39 EDT 2023 Heart Rate 83.00 /min WedNovember 05 22:01 :39 EDT 2023 Body temperature 98.50 [degF] WedNovember 05 22:0 1:39 EDT 2023 Respiratory rate 20.00 /min WedNovember 05 22:0 1:39 EDT 2023 Pulse Oximetry 94.00 % WedNovember 05 22:01 :39 EDT 2023 Body weight 197.40 [lb_av] WedNovember 05 12:56 :02 EDT 2023 Systolic Blood Pressure 158.00 mm[Hg] WedNovember 05 08:39:29 EDT 2023 Diastolic Blood Pressure 83.00 mm[Hg] WedNovember 05 08:39:29 EDT 2023 Heart Rate 98.00 /min WedNovember 05 08:39 :29 EDT 2023 Body temperature 98.60 [degF] WedNovember 05 08:3 9:29 EDT 2023 Respiratory rate 18.00 /min WedNovember 05 08:3 9:29 EDT 2023 Pulse Oximetry 93.00 % WedNovember 05 08:39 :29 EDT 2023 Systolic Blood Pressure 141.00 mm[Hg] WedNovember 04 22:23:48 EDT 2023 Diastolic Blood Pressure 58.00 mm[Hg] WedNovember 04 22:23:48 EDT 2023 Heart Rate 82.00 /min WedNovember 04 22:23 :48 EDT 2023 Body temperature 98.50 [degF] WedNovember 04 22:2 3:48 EDT 2023 Respiratory rate 20.00 /min WedNovember 04 22:2 3:48 EDT 2023 Pulse Oximetry 99.00 % WedNovember 04 22:23 :48 EDT 2023 Body weight 198.00 [lb_av] WedNovember 04 15:00 :59 EDT 2023 Systolic Blood Pressure 128.00 mm[Hg] WedNovember 04 08:45:29 EDT 2023 Diastolic Blood Pressure 46.00 mm[Hg] WedNovember 04 08:45:29 EDT 2023 Heart Rate 71.00 /min WedNovember 04 08:45 :29 EDT 2023 Body temperature 98.30 [degF] WedNovember 04 08:4 5:29 EDT 2023 Respiratory rate 16.00 /min WedNovember 04 08:4 5:29 EDT 2023 Pulse Oximetry 94.00 % WedNovember 04 08:45 :29 EDT 2023 Systolic Blood Pressure 159.00 mm[Hg] WedNovember 03 22:51:16 EDT 2023 Diastolic Blood Pressure 62.00 mm[Hg] WedNovember 03 22:51:16 EDT 2023 Heart Rate 82.00 /min WedNovember 03 22:51 :16 EDT 2023 Body temperature 98.40 [degF] WedNovember 03 22:5 1:16 EDT 2023 Respiratory rate 18.00 /min WedNovember 03 22:5 1:16 EDT 2023 Pulse Oximetry 95.00 % WedNovember 03 22:51 :16 EDT 2023 Body weight 197.60 [lb_av] WedNovember 03 13:47 :50 EDT 2023 Systolic Blood Pressure 129.00 mm[Hg] WedNovember 03 10:28:01 EDT 2023 Diastolic Blood Pressure 66.00 mm[Hg] WedNovember 03 10:28:01 EDT 2023 Heart Rate 67.00 /min WedNovember 03 10:28 :01 EDT 2023 Body temperature 98.00 [degF] WedNovember 03 10:2 8:01 EDT 2023 Respiratory rate 18.00 /min WedNovember 03 10:2 8:01 EDT 2023 Pulse Oximetry 95.00 % WedNovember 03 10:28 :01 EDT 2023 Systolic Blood Pressure 159.00 mm[Hg] WedNovember 03 00:16:59 EDT 2023 Diastolic Blood Pressure 52.00 mm[Hg] WedNovember 03 00:16:59 EDT 2023 Heart Rate 74.00 /min WedNovember 03 00:16 :59 EDT 2023 Body temperature 98.00 [degF] WedNovember 03 00:1 6:59 EDT 2023 Respiratory rate 20.00 /min WedNovember 03 00:1 6:59 EDT 2023 Pulse Oximetry 96.00 % WedNovember 03 00:16 :59 EDT 2023 Body weight 198.20 [lb_av] WedNovember 02 10:58 :27 EDT 2023 Body Height 66.00 [in_i] WedNovember 02 10:58 :00 EDT 2023 Systolic Blood Pressure 184.00 mm[Hg] WedNovember 02 09:42:34 EDT 2023 Diastolic Blood Pressure 67.00 mm[Hg] WedNovember 02 09:42:34 EDT 2023 Heart Rate 61.00 /min WedNovember 02 09:42 :34 EDT 2023 Body temperature 98.90 [degF] WedNovember 02 09:4 2:34 EDT 2023 Respiratory rate 18.00 /min WedNovember 02 09:4 2:34 EDT 2023 Pulse Oximetry 96.00 % WedNovember 02 09:42 :34 EDT 2023 Systolic Blood Pressure 174.00 mm[Hg] WedNovember 02 00:55:00 EDT 2023 Diastolic Blood Pressure 77.00 mm[Hg] WedNovember 02 00:55:00 EDT 2023 Heart Rate 74.00 /min WedNovember 02 00:55 :00 EDT 2023 Body Height 69.00 [in_i] WedNovember 02 00:55 :00 EDT 4 Body temperature 98.50 [degF] WedNovember 02 00:5 5:00 EDT 2023 Respiratory rate 16.00 /min WedNovember 02 00:5 5:00 EDT 2023 Pulse Oximetry 95.00 % WedNovember 02 00:55 :00 EDT 4 Reason for Referral
--- OUTSIDE RECORDS SUMMARY | 2024-09-28 07:19 | XMS_ITS | Encounter Summary ---
Author Organization [facility] Healthcare Address [address] [place] [address] Care Team Providers Care Bee Producer Name Role Phone Dg Huerta MD Primary Care Provider [phone] Encounter Details Date Type Department Care Team (Late st Contact Info) Description 12/09/2022 Telephone [facility] [address] [place], [place] [id number] Dg Huerta MD [address] [place] [address] Social History Tobacco Use Types Packs/Day Years Used Date Smoking Tobacco: Former Cigarettes 1 58.2 S tarted: 1967 Smokeless Tobacco: Never Alcohol Use Standard Drinks/Week Comments Yes 0 (1 standard drink = 0.6 oz pur e alcohol) occassional Comments No Sex and Gender Information Value Date Recorded Sex Assigned at Not on file Legal Sex Female 12:17 AM [facility] Gender Identity Not on file Sexual Orientation [...] orders or changes made to medication regimen. [facility] Chronic Pain Care Plan Chronic Care Management Worsening( 2:58 PM CRTTS) Viola Parkinson RN Note: Problem: Chronic Pain Goals: 1. Minimize further functional decline 2. Maximize quality of life 3. Control pain Strategies: - Activity/exercise program recommendation - Conservative stepwise pain medicine strategy with multi-disciplinary approach - Recommend healthy lifestyle strategies and compensatory methods as needed documented as of this encounter Visit Diagnoses Not on filedocumented in this encounter Care Teams Bee Producer Relationship Specialty Start Date End Date Dg Huerta MD PCP - General 10/02/16 documented as of this encounter
--- OUTSIDE RECORDS SUMMARY | 2024-09-28 07:19 | XMS_ITS | Clinical Summary ---
Author Organization [facility] Address [address] [place] [address] Care Team Providers Care Edging Machine Setter Name Role Phone None, Provider MD Primary Care Provider Unavaila ble Social History Tobacco Use Types Packs/Day Years Used Date Smoking Tobacco: Never Assessed Comments Unknown Sex and Gender Information Value Date Recorded Sex Assigned at Not on file Legal Sex Female 7:39 PM CDT Gender Identity Not on file Sexual Orientation Not on file Plan of Treatment Health Maintenance Due Date Last Done Comments Colorectal Cancer Screening Colonoscopy (10 Years) 1951 Hepatitis C 1969 DTaP, Tdap and Td Vaccines ( 1 - Tdap) 1970 Mammogram Screening 1991 Zoster Vaccines (1 of 2) 2001 Annual Medicare Wellness Visit 2016 Dexa Scan (General) 2016 Pneumococcal Vaccine: 65+ Ye ars (1 of 1 - PCV) 2016 COVID-19 Vaccine ( - 2023-2 5 season) 2024 Influenza Adult (#1) 2024 RSV Immunization or 60+ Years (1 - 1-dose 75+ series) 2026 Meningococcal B Vaccine Aged Out No l onger eligible based on patient's age to complete this topic Meningococcal Vaccine Aged Out No edgar jacque eligible based on patient's age to complete this topic RSV Immunizations Under 20 Months Aged Out No longer eligible based on patient's age to complete this topic [place] [id number] MEDICARE Care Teams Edging Machine Setter Relationship Specialty Start Date End Date None, Provider, PCP - General 04/20/19
--- OUTSIDE RECORDS SUMMARY | 2024-09-28 07:19 | XMS_ITS | Encounter Summary ---
Author Organization [facility] Address [address] [place] [address] Phone Care Team Providers Care Shotgun Shell Assembly Machine Operator Name Role Phone Dg Huerta MD Primary Care Provider [phone] Encounter Details Date Type Department Care Team (Late st Contact Info) Description 09/19/2024 Telephone [facility] Cardiology [address] [facility] [address] [place] [address] [place] [id number] Xavier Frederick MD [address] [facility] [address] [place] [address] Social History Tobacco Use Types Packs/Day Years Used Date Smoking Tobacco: Former Cigarettes 1 58.2 S tarted: 1967 Smokeless Tobacco: Never Alcohol Use Standard Drinks/Week Comments Yes 0 (1 standard drink = 0.6 oz pur e alcohol) occassional AUDIT-C Answer Date Recorded Q1: How often do you have a drink containing alcohol? Never 10/29/2023 Q2: How many drinks containi ng alcohol do you have on a typical day when you are drinking? Patient does not drink Q3: How often do you have si x or more drinks on one occasion? Never 10/29/2023 Personal Safety Answer Date Recorded Have you ever been in or are you currently in a harmful physical or emotional relationship or is someone making you feel afraid or unsafe? 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 documented in this encounter Plan of Treatment Not on file documented as of this encounter Goals Goal Patient Goal Type Associated Problems Recent Progress Patient-Stated? Author YONIS General Goal - Patient schedules and keeps appointments with all recommended providers ACO Care Management No Magaly Farmer, SARINA Note: Problem: Potential for medical complications [...] orders or changes made to medication regimen. CCM Chronic Pain Care Plan Chronic Care Management Worsening( 2:58 PM SHUTTLE BUGGY OPERATOR) Viola Parkinson, SARINA Note: Problem: Chronic Pain Goals: 1. Minimize further functional decline 2. Maximize quality of life 3. Control pain Strategies: - Activity/exercise program recommendation - Conservative stepwise pain medicine strategy with multi-disciplinary approach - Recommend healthy lifestyle strategies and compensatory methods as needed documented as of this encounter Visit Diagnoses Not on filedocumented in this encounter Care Teams Shotgun Shell Assembly Machine Operator Relationship Specialty Start Date End Date Dg Huerta MD PCP - General 10/02/16 documented as of this encounter
--- OUTSIDE RECORDS SUMMARY | 2024-09-28 07:19 | XMS_ITS ---
Author Organization [facility] Address [address] [place] [address] Care Team Providers Care Bag Washer Name Role Phone Deanna FRANZ, [facility] Primary Care Provider Unavaila ble Eleazar Watkins Unavailable [phone] Eleazar Watkins MD Unavailable Unavailabl e Results Component Value Reference Range Notes CBC w auto diff Reviewed date:09/15/2024 08:17:59 AM Interpretation: Performing Lab:[facility] , [address] [place] [address]. [facility] [address] Notes/Report: WBC 10.1 3.8-9.9 K/cumm Hgb 13.9 11.9-15.5 g/dL Hct 42.2 35.6-45.5 % Platelet [address] 287 150-400 K/cumm MPV 10.2 9.1-12.3 fL RBC 4.95 3.90-5.20 M/cumm MCV 85.3 81.3-96.4 fL MCH 28.1 27.1-33.3 pg MCHC 32.9 32.3-35.7 g/dL RDW CV 16.2 11.1-14.9 % RDW SD 48.8 35.7-48.1 fL NRBC Abs Auto 0.00 0.00-0.01 K/cumm Creatinine Reviewed date:09/15/2024 08:33:23 AM Interpretation: Performing Lab:[facility] , [facility]. [facility] [address] Notes/Report: Creatinine 1.43 0.60-1.10 mg/dL Hep Func Panel Reviewed date:09/15/2024 08:17:45 AM Interpretation: Performing Lab:[facility] , [address] [facility]. [facility] [address] Notes/Report: Total Bilirubin 1.0 0.1-1.2 mg/dL Bilirubin, Direct 0.5 0.1-0.3 mg/dL Plasma Total Protein 8.1 6.5-8.5 g/dL Albumin 4.2 3.5-5.0 g/dL Alkaline Phosphatase 58 40-130 Units/L ALT 12 7-45 Units/L AST 27 10-45 Units/L REASON FOR VISIT Orencia 750mg 3 vials RMD Medications Medication SIG (Take, Route, Frequency, Duration) Notes Start Date End Date Status Orencia 250 mg infuse 1,000 mg over 30 minute(s) by intravenous route every 4 weeks Intravenous [id number] 08/14/2020 Active Pantoprazole Sodium 40 MG take 1 tablet (40 mg) by oral route once daily Oral 1 Active Spironolactone-HCTZ 25-25 mg take 1 tablet by oral route once daily Oral 1 Active Folic Acid 1 MG TAKE 1 TABLET ONE TI ME DAILY for 90 Active Vital Signs Temperature 97.2 degrees Fahrenheit 09/15/19 25 Blood pressure systolic 112 mm Hg 09/15/19 25 Blood pressure diastolic 67 mm Hg 025 Heart Rate 75 /min 09/14/2024 Height 70 in 09/14/2024 Weight 159.0 lbs 09/14/2024 BMI 22.81 kg/m2 09/14/2024 Height-cm 177.80 cm 09/14/2024 Weight-kg 72.12 kg 09/14/2024 Encounters Encounter Location Date Provider Diagnosis [facility] [address] [place] [address] 09/14/2024 Eleazar Watkins Other specified rheumatoid arthritis, multiple sites M06.89 Assessments Encounter Date Diagnosis (ICD Code) Assessment Notes Treatment Notes Treatment Clinical Notes Section Notes 09/14/2024 Other specified rheumatoid arthritis, multiple sites (ICD-10 - M06.89) Plan Of Treatment Next Appt Details Provider Name:Eleazar spaulding, 10/12/2024 02:00:00 PM, [address], [address], [place], [address], Provider Name:Eleazar spaulding, 11/09/2024 02:00:00 PM, [address], [address], [place], [address], Provider Name:Eleazar spaulding, 12/07/2024 02:00:00 PM, [address], [address], [place], [address], Progress Notes * CAGEChelsi ZABALAa KDOB:1949 (74 yo F)Acc No.[id number]:09/14/2024 Infusion Patient: Ariadne ARANA Provider: Isela Watkins MD :1950 A ge:74 Y S ex:Female Date:09/14/2024 Address:[address] [place] [address] Pcp:Dg Huerta MD Subjective: * Chief Complaints: * O rencia 750mg 3 vials RMD * HPI: I nfusion: Infusion Record T ype of Infusion _ ____,Orencia, W hat is the dosage . 750mg, H ow is the dose calculated . weight based, A uthorized by _ ____,Angle Whiting umber of vials to reconstitute . 3, I nfusion type ,Sylvieia, A mount . 750mg, M anufacturer _ ___ BMS, E xpiration date? 03/29, L ot number _ __ [id number], S terile water (number of vials) . auto injector, S terile water lot number _ __ [id number], S terile water exp. date 11/28, s terile water MFG _ _ Harris. P re Infusion Assessment T B Screening Results PPD _ ____,?Quantiferon TB Gold Results N egative 03/01/24, C hest Xray Results _ ____, R ecent exposure to TB _ ____, A ny illness now _ ____,None. S kin Conditon D oes the patient has any skin condition n o. P revious Infusion D ate of last infusion 1 07/31/2023, P revious infusion type _ ____,Orencia, R eaction N o, W as patient pre treated _ ____,NO, R esponse to previous infusion N /A Pt hasnt infused since 05/28. IV INSERTION C atheter brand _ ___, C atherter Gauge _ ____,24 ga, N eedle Length _ ___,3/4 inch, I V site accessed _ ___ (L) AC, N umber of attempts to access vein/port . 1, P remedication _ ____ NA, T adria given _ __. P ATIENT MONITORING T adria infusion initated _ __ 1435, R ate of infusion _ __ 750mg, I nfusion end time: _ ____ 1505. D ISPOSITION T adria IV discontinued: _ __ 1507, A mount of drug administered _ ___ 750mg, N ext Infusion Date Scheduled: 0 10/12/2024. * Medical History: * Surgical History: H ip surgery; 0367-19-79Bqdsz surgery; 3814-67-81nikkv valve; 4688-47-91Wxmdhuihm tube; 2020-08-14 * Hospitalization/Major Diagno stic Procedure: * Family History: M igrated Family History: Denies Family History . * Social History: M igrated Social History: M igrated Social History: :: 2 Children , :: Seatbelt-WEARS , :: Smoke detectors-PRESENT , :: Sunscreen- wears , Marital Status :: , Occupation :: Retired , Substance Use :: Tobacco :: Never. * Medications: T akingOrencia 250 mg Solution Reconstituted infuse 1,000 mg over 30 minute(s) by intravenous route every 4 weeks Intravenous [id number]-[id number] Pantoprazole Sodium 40 MG Tablet Delayed Release take 1 tablet (40 mg) by oral route once daily Oral 1 Spironolactone-HCTZ 25-25 mg Tablet take 1 tablet by oral route once daily Oral 1 Folic Acid 1 MG Tablet TAKE 1 TABLET ONE TIME DAILY Taking Orencia 250 mg Solution Reconstituted infuse 1,000 mg over 30 minute(s) by intravenous route every 4 weeks Intravenous 3.49555612297058Q-12 Taking Pantoprazole Sodium 40 MG Tablet Delayed Release take 1 tablet (40 mg) by oral route once daily Oral 1 Taking Spironolactone-HCTZ 25-25 mg Tablet take 1 tablet by oral route once daily Oral 1 Taking Folic Acid 1 MG Tablet TAKE 1 TABLET ONE TIME DAILY Objective: * Vitals: B P:112/67mm Hg, HR:75/min, Temp:97.2F, Wt:159.0lbs, Wt-k.12 kg, Ht: 70 in, Ht-cm: 177.80 cm, BMI:22.81Index, Body Surface Area: 1.89. Assessment: * Assessment: 1. O ther specified rheumatoid arthritis, multiple sites - M06.89 (Primary) Plan: * Treatment: Value Reference Range C reatinine 1.43 H 0.60-1.10 - mg/dL * Repeat labs with hydration o rdered. Sne this to PCP...This lab was reviewed by Eleazar Watkins on 09/15/2024 at 08:33 AM CDT ?LAB: Hep Func Panel * Procedure Codes: J 0129 ABATACEPT INJECTION, Units: 75.00 47198 THER/PROPH/DIAG IV INF, INIT * Billing Information: * Visit Code: * Procedure Codes: J0129 ABATACEPT INJECTION. Units: 75.00. 82629 THER/PROPH/DIAG IV INF, INIT. * Electronically co-signed by Eleazar Watkins MD on 09/15/2024 at 08:22 AM CDT Sign off status: Completed true * Provider: Isela Watkins MD Date: 09/14/2024 Generated for Gary gaines/Brandie/Cuate on: 09/28/2024 07:19 AM CDT History and Physical Notes * HPI (History of Present Illness) Category Sub-Category Detail Notes Category Not es Infusion Infusion Record Type of Infusion: ,Orencia What is the dosage: . 750mg How is the dose calculated: . weight bas ed Authorized by: ,. Divalerio Number of vials to reconstitute: . 3 Infusion type: ,Orencia Amount: . 750mg Sewing Machine Maintenance Mechanic: ____ BMS Expiration date: 03/29 Lot number: ___ [id number] Sterile water (number of vials): . auto injector Sterile water lot number: ___ [id number] Sterile water exp. date: 11/28 sterile water MFG: __ Harris Pre Infusion Assessment TB Screening Results PPD : Quantiferon TB Gold Results: Negative Chest Xray Results: Recent exposure to TB: Any illness now: ,None Skin Conditon Does the patient has any skin co ndition: no Previous Infusion Date of last infusion: 024 Previous infusion type: ,Orencia Reaction: No Was patient pre treated: ,NO Response to previous infusion: N/A Pt black snt infused since 05/28 IV INSERTION Catheter brand: ____ Catherter Gauge: ,24 ga Needle Length: ____,3/4 inch IV site accessed: ____ (L) AC Number of attempts to access vein/port: . 1 Premedication: NA Time given: ___ PATIENT MONITORING Time infusion initated: ___ 1 435 Rate of infusion: ___ 750mg Infusion end time:: 1505 DISPOSITION Time IV discontinued:: ___ 1507 Amount of drug administered: ____ 750mg Next Infusion Date Scheduled:: 5
--- OUTSIDE RECORDS SUMMARY | 2024-09-28 07:19 | XMS_ITS | Encounter Summary ---
Author Organization [facility] Address [address] [place] [address] Care Team Providers Care Mutuel Clerk Name Role Phone Dg Huerta MD Primary Care Provider [phone] Encounter Details Date Type Department Care Team (Late st Contact Info) Description 04/20/2023 Telephone [facility] [address] [facility] [address] [place], [place] [id number] Dg Huerta MD [address] [place] [address] Social History Tobacco Use Types Packs/Day Years Used Date Smoking Tobacco: Former Cigarettes 1 58.2 S tarted: 1967 Smokeless Tobacco: Never Alcohol Use Standard Drinks/Week Comments Yes 0 (1 standard drink = 0.6 oz pur e alcohol) occassional Comments No Sex and Gender Information Value Date Recorded Sex Assigned at Not on file Legal Sex Female 12:17 AM 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 [facility] Chronic Pain Care Plan Chronic Care Management Worsening( 2:58 PM CORRECTIONS LIEUTENANT) Viola Parkinson RN Note: Problem: Chronic Pain Goals: 1. Minimize further functional decline 2. Maximize quality of life 3. Control pain Strategies: - Activity/exercise program recommendation - Conservative stepwise pain medicine strategy with multi-disciplinary approach - Recommend healthy lifestyle strategies and compensatory methods as needed documented as of this encounter Visit Diagnoses Not on filedocumented in this encounter Care Teams Mutuel Clerk Relationship Specialty Start Date End Date Dg Huerta MD PCP - General 10/02/16 documented as of this encounter
--- OUTSIDE RECORDS SUMMARY | 2024-09-28 07:19 | XMS_ITS | Clinical Summary ---
Author Organization [facility] Address [address] [place] [address] Phone Care Team Providers Care Photographic Double Name Role Phone Unavailable Primary Care Provider Unavailabl e Social History Tobacco Use Types Packs/Day Years Used Date Smoking Tobacco: Never Assessed Comments Unknown Sex and Gender Information Value Date Recorded Sex Assigned at Not on file Legal Sex Female 10:17 AM CDT Gender Identity Not on file Sexual Orientation Not on file Plan of Treatment Health Maintenance Due Date Last Done Comments DTAP/TDAP/TD VACCINES (1 - Tdap) 1970 BREAST CANCER SCREENING 1991 COLORECTAL SCREENING 1996 Colorectal Cancer Screening 1996 FIT-DNA Q 3 years 1996 FIT/FOBT Q 1 year 1996 Flex Sig/CT Colonography Q 5 years 1996 PNEUMOCOCCAL VACCINE 50+ YEARS (1 of 1 - PCV) 05/08/20 01 ZOSTER VACCINE (1 of 2) 2001 OSTEOPOROSIS SCREENING 2016 INFLUENZA VACCINE (#1) 2024 RSV VACCINE (60+ or ) (1 - 1-dose 75+ series) 2026 Insurance MEDICARE PART A AND B MEDICARE PART A AND B
--- OUTSIDE RECORDS SUMMARY | 2024-09-28 07:20 | XMS_ITS | Encounter Summary ---
Author Organization [facility] Address [address] [place] [address] Phone Care Team Providers Care Rodbuster Name Role Phone Dg Huerta MD Primary Care Provider [phone] Reason for Visit * Reason Onset Date Comments Test Results 09/27/2024 Encounter Details Date Type Department Care Team (Late st Contact Info) Description 09/27/2024 Telephone [facility] Cardiology [address] [facility] [address] 8th [place] [address] [place] [id number] Xavier Frederick MD [address] [facility] [address] [place] [address] Test Results Social History Tobacco Use Types Packs/Day Years [...] on file Legal Sex Female 12:17 AM CONTRACTOR 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 I would like for her to see our valve team to review further and discuss any potential treatment options for her. Thank you ----- Message ----- From: Alix Cornelius Sent: 09/21/2024 12:35 PM CDT To: Xavier Frederick MD; # Echo images just pushed thru [employer], will be in chart in a while ----- Message ----- From: Alix Cornelius Sent: 09/19/2024 2:23 PM CDT To: [facility] called back stating it was mailed 09/14 ----- Message ----- From: Alix Cornelius Sent: 09/19/2024 1:07 PM CDT To: Alixric Cornelius Requested again ----- Message ----- From: Alix Cornelius Sent: 09/13/2024 9:58 AM CDT To: Alixric Cornelius requested ----- Message ----- From: Jessica Fleming RN Sent: 09/13/2024 9:53 AM CDT To: lAix Cornelius; # Please obtain echo images from [facility] Thank you documented in this encounter Plan of Treatment [...] orders or changes made to medication regimen. [facility] Chronic Pain Care Plan Chronic Care Management Worsening( 2:58 PM CONTRACTOR BROOMCORN THRESHING) Viola Parkinson RN Note: Problem: Chronic Pain Goals: 1. Minimize further functional decline 2. Maximize quality of life 3. Control pain Strategies: - Activity/exercise program recommendation - Conservative stepwise pain medicine strategy with multi-disciplinary approach - Recommend healthy lifestyle strategies and compensatory methods as needed documented as of this encounter Visit Diagnoses Not on filedocumented in this encounter Care Teams Rodbuster Relationship Specialty Start Date End Date Dg Huerta MD PCP - General 10/02/16 documented as of this encounter
--- OUTSIDE RECORDS SUMMARY | 2024-09-28 07:20 | XMS_ITS | Clinical Summary ---
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 Name Role Phone Dg Huerta MD Primary Care Provider [phone] Allergies Active Allergy Reactions Criticality Noted Date Comments Rabeprazole Hives Medium Nizatidine Hives Medium Reaction: hives, Medications abatacept (ORENCIA) 250 mg injection Infuse 30 mL (750 mg total) into a venous catheter every 4 (four) weeks Active methotrexate 2.5 mg tablet TAKE 10 TABLETS (25 MG TOTAL) ONE TIME A WEEK DIRECTED 130 tablet [address] (CYMBALTA) 20 mg capsule Take 1 capsule (20 mg total) by mouth daily Active albuterol HFA (PROVENTIL HFA,VENTOLIN HFA,PROAIR HFA) 90 mcg/actuation inhaler Inhale 1 puff every 4 (four) hours as needed Active potassium chloride ER 20 mEq CR tablet Active pantoprazole DR (PROTONIX) 40 mg EC tablet Take 1 tablet (40 mg total) by mouth daily Active spironolactone (ALDACTONE) 25 mg tablet Take 1 tablet (25 mg total) by mouth Active acetaminophen 500 mg capsuleIndication s:Pain Take 2 capsules (1,000 mg total) by mouth every 6 (six) hours as needed for pain Active sodium chloride (OCEAN) 0.65 % nasal spray Administer 1 spray into each nostril as needed for congestion or rhinitis 2024 Active traZODone (DESYREL) 50 mg tablet 1 tablet (50 mg total) nightly Active folic acid (FOLVITE) 1 mg tablet Active omeprazole (PriLOSEC) 40 mg capsule Take 1 capsule (40 mg total) by mouth daily 30 capsule Active ondansetron ODT (ZOFRAN-ODT) 4 mg disintegrating tablet Take 1 tablet (4 mg total) by mouth every 8 (eight) hours as needed for nausea or vomiting 20 tablet Active dicyclomine (BENTYL) 20 mg tablet Take 1 tablet (20 mg total) by mouth 2 (two) times a day 20 tablet 2024 Active Additional Information Patient taking differently:20 mg oralDaily, Reported on 09/12/2024 allopurinoL (ZYLOPRIM) 100 mg tablet Take 1 tablet (100 mg total) by mouth daily Active cetirizine (ZyrTEC) 5 mg tablet daily 0 Active furosemide (LASIX) 40 mg tablet Take 1 tablet (40 mg total) by mouth 2 (two) times a day Active busPIRone (BUSPAR) 10 mg tablet 022 2024 Discontinued(T herapy completed) furosemide (LASIX) 40 mg tablet daily 022 2024 Discontinued fesoterodine ER (TOVIAZ) 4 mg tablet extended release 24 hr Take 1 tablet (4 mg total) by mouth daily 90 tablet 3 022 2024 Discontinued(T herapy completed) nabumetone (RELAFEN) 750 mg tablet 023 2024 Discontinued(T herapy completed) methocarbamoL (ROBAXIN) 500 mg tablet Take 1 tablet (500 mg total) by mouth 3 (three) times a day 2024 Discontinued(T herapy completed) metoclopramide (REGLAN) 10 mg tablet Take 1 tablet (10 mg total) by mouth every 6 (six) hours 30 tablet 024 2024 Discontinued(T herapy completed) Active Problems Problem Noted Date Diagnosed Date Fracture of right orbital floor 11/16/2023 Assessment & Plan (11/16/2023 10:38 AM CDT): --Seen in ED 10/28/23 for multiple facial fractures, including right orbital floor fracture. Vision and EOMs reassuring at that time. With RUL lac glued by OSH. --Today, asymptomatic, remains with reassuring VA and motility. RUL lac healing well. Excess glue trimmed. PLAN --No further intervention at this time from ophthalmology perspective --F/u with FACE team outpatient Optic disc cupping, bilateral 11/16/2023 Assessment & Plan (11/16/2023 10:46 AM CDT): --Mild cupping of optic nerves incidentally noted during 10/28/23 ED visit --IOP wnl today, VFTC full. PLAN: --RTC 3-4 months IOP check, DFEx, RNFL OCT Acute traumatic pain 10/30/2023 Assessment & Plan (10/31/2023 11:08 AM CDT): - Tylenol 1g q6h - Robaxin 500mg TID - Oxycodone 5mg q4h PRN Syncope and collapse 10/29/2023 Assessment & Plan (10/30/2023 10:53 AM CDT): # Syncopal fall vs Mechanical w/LOS from head trauma - EKG baseline, normal trop, denies chest pain - Last echo TTE Jun 2021 (EF67%, normal MV function with bioprosthetic) - Carotid US (10/28): The right internal carotid artery disease is consistent with a less than 50% stenosis. Normal left internal carotid artery, no evidence of significant plaque. No evidence of hemodynamically significant stenosis in the common carotid artery bilaterally. Normal, antegrade flow is noted in bilateral vertebral arteries - ECHO (10/28): s/p bioMVR. MV leaflets not well seen but evidence of severe prosthetic valve stenosis, possibly due to pannus and related pulmonary hypertension and mild LAE. Normal LV and RV size and systolic function. Normal LV wall thickness. At least moderate TR. Indeterminate diastolic function. IVC normal. No pericardial effusion. LV global longitudinal strain borderline (-16.7%). Compared with echo 06/13/21, gradient across mitral prosthesis, estimated pulmonary pressures, and TR are worse. Closed extensive facial fractures 10/29/2023 Assessment & Plan (10/29/2023 12:02 PM CDT): #R orbital fx (clinically nonentrapped) #R nasal bone fx #R maxillary sinus fx #R lamina papyracea fx - Plastic Surgery consulted - Ophthalmology consulted - Non-op management - Sinus precautions, HOB elevated - Jack nasal spray - ice packs prn - page ophthalmology for any new or worsening eye or visual symptoms including worsening vision, eye pain, redness, photosensitivity, discharge, or new flashes of light or showers of floaters Follow up with PRS clinic PRN Follow up with Ophthalmology in 2 weeks for anterior exam Encounter for medical assessment 10/29/2023 Discharge planning issues 10/29/2023 Assessment & Plan (10/31/2023 11:08 AM CDT): - 10/27: patient admitted - 10/28: OR with Ortho for elbow - CM initial assessment needs to be completed - 10/29: awaiting PT/OT evaluation - 10/30: Patient is medically stable for discharge, SW/CM updated. Discharge pending facility acceptance Closed bent bone fracture of right ulna 10/29/19 24 Closed fracture of proximal end of right radius and ulna 10/28/2023 Assessment & Plan (10/30/2023 10:50 AM CDT): - Orthopedic consulted - CT: Comminuted proximal right ulna shaft fracture just distal to the coronoid process, involving the ulnar insertion of the lateral ulnar collateral ligament. Mildly impacted, comminuted fracture of the right radial head and neck - Splinted in ED - s/p right olecranon open reduction and internal fixation and radial head replacement (10/28) - CAMILLE PATTEN x12 weeks + Upper extremity protocol - PT/OT Fall on same level as cause of accidental injury 10/28/2023 Lumbar spondylosis 03/07/2021 Abnormal MRI, lumbar spine 11/22/2020 Spinal stenosis of lumbar re gion with neurogenic claudication 11/22/2020 Chronic bilateral low back pain with right-sided sciatica 10/28/2020 Right buttock pain 10/28/2020 Sacroiliitis 10/28/2020 Cough 06/11/2017 Pleural cavity effusion 04/14/2017 Primary osteoarthritis of left hip 03/12/2017 Fatigue 08/25/2016 History of mitral valve replacement 08/25/2016 Assessment & Plan (10/29/2023 12:29 PM CDT): - 10/28: ECHO: s/p bioMVR. MV leaflets not well seen but evidence of severe prosthetic valve stenosis, possibly due to pannus and related pulmonary hypertension and mild LAE. Normal LV and RV size and systolic function. Normal LV wall thickness. At least moderate TR. Indeterminate diastolic function. IVC normal. No pericardial effusion. LV global longitudinal strain borderline (-16.7%). Compared with echo 06/13/21, gradient across mitral prosthesis, estimated pulmonary pressures, and TR are worse. - Home aldactone, lasix History of open heart surgery 08/24/2016 Mitral valve insufficiency 05/06/2016 Obesity with body mass index 30 or greater 04/28 Atypical chest pain 04/28/2016 Trochanteric bursitis 04/24/2015 Overview (10/08/2016): Trochanteric bursitis of left hip Fibrosis of lung 10/24/2014 Overview (10/08/2016): Pulmonary fibrosis Assessment & Plan (10/29/2023 12:25 PM CDT): - Home albuterol 1 puff q6h prn Rheumatoid arthritis, seropositive, multiple sit es 11/18/2013 Overview (10/09/2016): RHEUMATOID ARTHRITIS Assessment & Plan (10/31/2023 11:21 AM CDT): - Orencia 750mg [id number] [last dose 10/19] Psoriasis 11/18/2013 Overview (10/09/2016): OTHER PSORIASIS Benign hypertension 11/18/2013 Overview (10/09/2016): BENIGN HYPERTENSION Osteoporosis 11/18/2013 Overview (10/09/2016): Osteoporosis Insomnia 08/03/2012 Overview (10/09/2016): Insomnia Gastroesophageal reflux disease 07/01/2012 Overview (10/07/2016): GERD (gastroesophageal reflux disease) Assessment & Plan (10/29/2023 12:24 PM CDT): - Home pantoprazole Neuropathy 07/01/2012 Overview (10/09/2016): Neuropathy Fibromyalgia 07/01/2012 Overview (10/09/2016): Fibromyalgia Assessment & Plan (10/31/2023 11:19 AM CDT): - home gabapentin [no longer taking], cymbalta, buspar Hypertension 06/08/2012 Assessment & Plan (11/02/2023 11:17 AM CDT): - home Lasix 40mg, aldactone 25mg on hold, restart when appropriate - 11/01: lasix restarted - monitor VS Carpal tunnel syndrome 12/03/2011 Peripheral nerve disease 12/02/2011 Resolved Problems Problem Noted Date Diagnosed Date Resolved Date Optic cupping of both eyes 11/16/2023 0 11/16/2023 Assessment & Plan (11/16/2023 10:41 AM CDT): --Mild cupping of optic nerves incidentally noted during 10/28/23 ED visit Encounters Date Type Department Care Team Description 09/27/2024 Telephone [facility] [address] [facility] 8th [place] [address] [place] [address] Xavier Frederick MD Test Results 09/21/2024 4:39 PM CDT - 09/21/2024 11:59 PM CDT Hospital Encounter [facility] [address] [place] [address] Discharge Disposition: Discharge to home or self care 09/19/2024 Telephone [facility] [address] [facility] 8th [place] [address] [place] [phone] Xavier Frederick MD 09/14/2024 7:49 PM CDT - 09/14/2024 11:59 PM CDT Hospital Encounter [place] [id number] [place] [phone] Discharge Disposition: Discharge to home or self care 09/12/2024 2:30 PM CDT Office Visit [facility] [address] [place] [address] Office [address] [place] [phone] Xavier Frederick MD S/P MVR (mitral valve replacement) (Primary Dx); Heart valve disorder; Shortness of breath 09/12/2024 Results Follow-Up [facility] [address] [place] [address] Medical Office Building [address] [place] [phone] Xavier Frederick MD 08/18/2024 Telephone [facility] 8th [place] [address] [place] [phone] Yecenia Dunn from Last 3 Months Immunizations Immunization Administration Dates Next Due Influenza, Quadrivalent, Hig h Dose, Preservative Free, Intrr 04/04/2020 Influenza, Quadrivalent, Spl it, Preservative Free, Intramuscular 03/30/2016,05/02/2015 Influenza, Trivalent, High D ose, Split, Preservative Free, Intramuscular 05/15/2019 Influenza, Trivalent, IM (MDV) 04/30/2012 Influenza, Unspecified 05/15/2019,2017,03/09/2017,04/04 Moderna SARS-CoV-2 Monovalen t Vaccination (12+ YRS) 06/11/2021 Pneumococcal Conjugate PCV 13 03/30/2016 Pneumococcal Conjugate, Unspecified 04/04/2016 Pneumococcal Polysaccharide PPV23 12/06/2008, Tdap 10/28/2023 Surgical History Surgery Date Site/Laterality Comments CHOLECYSTECTOMY Cholecystectomy MITRAL VALVE REPLACEMENT Mitral Valve Replacement HEART SURGERY WRIST SURGERY TUBAL LIGATION HIP SURGERY HIP ARTHROPLASTY FACET BLOCK LUMBAR SACRAL 1 LEVEL LEFT 01/08/2021 Left Medical History Medical History Date Comments Peripheral neuropathy Osteoporosis Menopause ovarian failure Fibromyalgia CHF (congestive heart failure) (HCC) Coronary artery disease Hypertension Rheumatoid arthritis (HCC) Broken wrist Hip pain Arthritis Shortness of breath COPD (chronic obstructive pulmonary disease) (HC C) Family History Medical History Relation Name Comments Early Brother Stomach cancer Brother Breast cancer Maternal Grandmother Cancer , breast; Alzheimer's disease Mother Alzheime r's Disease; Osteoporosis Mother Osteoporosis; Stroke Mother Stroke; Early Sister Relation Name Status Comments Brother Maternal Grandmother Mother Sister Social History Tobacco Use Types Packs/Day Years Used Date Smoking Tobacco: Former Cigarettes 1 58.2 S tarted: 1967 Smokeless Tobacco: Never Tobacco Cessation:Counseling Given: Not Answered Alcohol Use Standard Drinks/Week Comments Yes 0 [...] on file Legal Sex Female 12:17 AM CHEMIC MANGLER Gender Identity Not on file Sexual Orientation Not on file Obstetrics History Para Term AB IAB SAB Ectopic Multiple Livin g Live Births 2 2 Date Outcome GA Total Labor Labor/2nd/3rd Weight Sex Type Anes PTL Therese A1 A5 Name Clin Para Para Last Filed Vital Signs Vital Sign Reading Time Taken Comments Blood Pressure 122/60 09/12/2024 3:14 PM CDT Lef t arm Pulse 76 09/12/2024 3:14 PM CDT Temperature 36.6 C (97.8 F) 06/29/2024 11:58 AM CHEMIC MANGLER Respiratory Rate 16 06/29/2024 6:30 PM CHEMIC MANGLER Oxygen Saturation 93% 09/12/2024 3:14 PM CDT Inhaled Oxygen Concentration - - Weight 59 kg (130 lb) 09/12/2024 3:13 PM CDT Height 175.3 cm (5' 9 ) 09/12/2024 3:13 PM CDT Body Mass Index 19.2 09/12/2024 3:13 PM CDT Plan of Treatment Health Maintenance Due Date Last Done Comments Colon Cancer Screening-Colonoscopy 1950 Depression Screening 1950 Hepatitis C Screening 1950 Hepatitis B Screening 1969 Zoster Vaccine (1 of 2) 1970 Pneumococcal vaccine 65+ (4 of 4 - PCV20 or PCV21) 04/04/2021 04/04/2016, 03/30/2016, 12/06/2008, Additional history exists Covid-19 Vaccine (2 - Modern a risk series) 07/09/2021 06/11/2021 Well Visit 65+ 09/29/2023 09/28/2022, 09/02, 03/31/2019, Additional history exists Osteoporosis Screening-Bone Density Scan 12/23/2023 12/22/2021 Influenza Vaccine (#1) 2024 , 04/04/2020, 05/15/2019, Additional history exists Breast Cancer Screening-Mammogram 07/19/2024 07/19/2023, 06/12/2022, 05/09/2021, Additional history exists Fall Risk Assessment 11/01/2024 11/02/2023, 06/19/2021, 07/25/2020, Additional history exists DTaP/Tdap/Td Vaccine (2 - Td or Tdap) 10/27/2033 10/28/2023 Goals Goal Patient Goal Type Associated Problems Recent Progress Patient-Stated? Author YONIS General Goal - Patient schedules and keeps appointments with all recommended providers ACO Care Management Magaly Mitchell, RN Note: Problem: Potential for medical complications and [...] Plan Chronic Care Management Worsening( 2:58 PM CHEMIC MANGLER) Viola Parkinson RN Note: Problem: Chronic Pain Goals: 1. Minimize further functional decline 2. Maximize quality of life 3. Control pain Strategies: - Activity/exercise program recommendation - Conservative stepwise pain medicine strategy with multi-disciplinary approach - Recommend healthy lifestyle strategies and compensatory methods as needed Medical Devices Implanted Type Area Technical Sales Associate Device Identifier Shelf Expiration Date Model / Serial / Lot [employer]/ Ortho Plate Evos 2.7mm/3.5mm Olecranon W/ Tines 7h R 114mm [id number] - [id number] Implanted:Qty: 1 on 10/29/2023 by Dee Meyer MD at [facility] Right: Forearm [employer]/O rtho [id number] / / [employer]/ Ortho 2.7mm 4.3mm 55mm Lock Self Retain Flat Head Long Bone Small Bone [id number] - [id number] Implanted:Qty: 1 on 10/29/2023 by Dee Meyer MD at [facility] Right: Forearm [employer]/O rtho [id number] / / [email or web address] Evolve 20mm Modular Elbow Standard Head Radial Proline 496-H020 - [id number] Implanted:Qty: 1 on 10/29/2023 by Dee Meyer MD at [facility] Right: Forearm [email or web address] [id number] 04/06/2031 496-[id number] / / [id number] [email or web address] Evolve 7.5mm Head System Smooth Elbow +4mm Stem Radial Proline [id number] - [id number] Implanted:Qty: 1 on 10/29/2023 by Dee Meyer MD at [facility] Right: Forearm [email or web address] 11/18/2028 [id number] / / [id number] [employer]/ Ortho Evos 3.5mm 22mm Self Tap Cortex Screw Bone Sterile [id number] - [id number] Implanted:Qty: 1 on 10/29/2023 by Dee Meyer MD at [facility] Right: Forearm [employer]/O rtho [id number] / / [employer]/ Ortho Evos 3.5mm 18mm Self Tap Cortex Screw Bone Sterile [id number] - [id number] Implanted:Qty: 1 on 10/29/2023 by Dee Meyer MD at [facility] Right: Forearm [employer]/O [employer]tho [id number] / / [employer]/ Ortho Evos 3.5mm 14mm Self Tap Cortex Screw Bone Sterile [id number] - [id number] Implanted:Qty: 1 on 10/29/2023 by Dee Meyer MD at [facility] Right: Forearm [employer]/O rtho [id number] / / [employer]/ Ortho Evos 2.7mm 4.5mm 16mm Self Tap Cortex T8 Screw Bone Mini Plate [id number] - [id number] Implanted:Qty: 1 on 10/29/2023 by Dee Meyer MD at [facility] Right: Forearm [employer]/O [employer]tho [id number] / / [employer]/ Ortho 2.7mm 4.5mm 80mm Self Retaining Screwdriver Self Tap Flat Head [id number] - [id number] Implanted:Qty: 1 on 10/29/2023 by Dee Meyer MD at [facility] Right: Forearm [employer]/O rtho [id number] / / [employer]/ Ortho Evos 3.5mm 24mm Self Tap Lock Screw Bone Sterile [id number] - [id number] Implanted:Qty: 1 on 10/29/2023 by Dee Meyer MD at [facility] Right: Forearm [employer]/O rtho [id number] / / Explanted Type Area Technical Sales Associate Device Identifier Shelf Expiration Date Model / Serial / Lot [employer] /Ortho Evos 3.5mm 24mm Self Tap Cortex Screw Bone Sterile [id number] - [id number] Explanted:Qty : 1 on 10/29/2023 by Dee Meyer MD at [facility] Right: Forearm [employer]/Or tho [id number] / / [employer] /Ortho Evos Mini 2.7mm 4.5mm 80mm Self Tap Cortex T8 Screw Bone [id number] - [id number] Explanted:Qty : 1 on 10/29/2023 by Dee Meyer MD at [facility] Right: Forearm [employer]/Or tho [id number] / / Procedures Procedure Name Priority Date/Time Associated Diagnosis Comments US TRANSFER OF OUTSIDE FILMS Routine 09/21/2024 4:39 PM CDT EGFR Routine 09/14/2024 2:42 PM CDT DIFFERENTIAL AUTO Routine 09/14/2024 2:4 2 PM CDT CREATININE Routine 09/14/2024 2:42 PM CDT CBC WITH AUTO DIFFERENTIAL Routine 09/14/2024 2:42 PM CDT HEPATIC FUNCTION PANEL Routine 09/14/2024 2:42 PM CDT ECG 12-LEAD Routine 09/12/2024 3:06 PM CDT Heart valve disorder SCREENING MAMMOGRAM BILATERAL W CARLOS Schedule Routine, Read Routine (OP Routine) 07/19/2023 1:50 PM CHEMIC MANGLER Screening mammogram, encounter for DEXA AXIAL SKELETON BONE DENSITY 1 OR MORE SITES Schedule Routine, Read Routine (OP Routine) 12/22/2021 1:25 PM CDT Genitourinary syndrome of menopause from Last 3 Months or Most Recently Relevant to Health Maintenance Results * US Outside Reference (09/21/2024 4:39 PM CDT) Impressions [facility] - 09/21/2024 4:39 PM CDT These images are for Reference purposes only and have not been reviewed by [facility]. There will be no report generated by a [facility] Radiologist. Narrative [facility] - 09/21/2024 4:39 PM CDT EXAMINATION: Images For Reference Purposes Only us Xavier Frederick MD IMG US PROCEDURES Final Resul t Performing Organization Address [facility] Co de Phone Number [email or web address] * (ABNORMAL) eGFR (09/14/2024 2:42 PM CDT) eGFR 39(L) >=60 mL/min/1. 73 m2 Comment: Interpretive Data Reference Interval Normal >/= 90 [...] Current interpretive data was last reviewed 2021. Blood 09/14/2024 2:42 PM CDT 09/14/2024 9:18 PM CDT us Eleazar Khan MD LAB BLOOD ORDERABLES Fin al Result [facility] [address] Department [place] [address] * (ABNORMAL) Differential, auto (09/14/2024 2:42 PM CDT) Neutrophil abs 7.7(H) 1.5 - 6.5 K/cumm Imm gran abs 0.1 0.0 - 0.1 K/cumm [facility] Lymphocyte abs 1.3 0.8 - 3.3 K/cumm [facility] Monocyte abs 0.8 0.2 - 0.8 K/cumm [facility] Eosinophil abs 0.2 0.0 - 0.5 K/cumm [facility] Basophil abs 0.1 0.0 - 0.1 K/cumm [facility] Neutrophil pct 76.3 % [facility] Comment: Interpretive Data Percent cell count reference ranges are not reported, since discordance with absolute values may lead to misinterpretation of CBC data. Current Interpretive Data was last revised on 2017. Imm gran pct 0.5 % [facility] Comment: Interpretive Data Percent cell count reference ranges are not reported, since discordance with absolute values may lead to misinterpretation of CBC data. Current Interpretive Data was last revised on 2017. Lymphocyte pct 12.5 % [facility] Comment: Interpretive Data Percent cell count reference ranges are not reported, since discordance with absolute values may lead to misinterpretation of CBC data. Current Interpretive Data was last revised on 2017. Monocyte pct 8.3 % [facility] Comment: Interpretive Data Percent cell count reference ranges are not reported, since discordance with absolute values may lead to misinterpretation of CBC data. Current Interpretive Data was last revised on 2017. Eosinophil pct 1.6 % [facility] Comment: Interpretive Data Percent cell count reference ranges are not reported, since discordance with absolute values may lead to misinterpretation of CBC data. Current Interpretive Data was last revised on 2017. Basophil pct 0.8 % [facility] Comment: Interpretive Data Percent cell count reference ranges are not reported, since discordance with absolute values may lead to misinterpretation of CBC data. Current Interpretive Data was last revised on 2017. Blood 09/14/2024 2:42 PM CDT 09/14/2024 8:29 PM CDT Eleazra Khan MD LAB BLOOD ORDERABLES Fin al Result Performing Organization Address [facility] Co de Phone Number [facility] [address] [place] [address] * (ABNORMAL) CBC with auto differential (09/14/2024 2:42 PM CDT) WBC 10.1(H) 3.8 - 9.9 K/cumm Hgb 13.9 11.9 - 15.5 g/dL [facility] Hct 42.2 35.6 - 45.5 % [facility] Plt 287 150 - 400 K/cumm [facility] MPV 10.2 9.1 - 12.3 fL [facility] RBC 4.95 3.90 - 5.20 M/cumm [facility] MCV 85.3 81.3 - 96.4 fL [facility] MCH 28.1 27.1 - 33.3 pg [facility] MCHC 32.9 32.3 - 35.7 g/dL [facility] RDW CV 16.2(H) 11.1 - 14.9 % [facility] RDW SD 48.8(H) 35.7 - 48.1 fL [facility] NRBC abs 0.00 0.00 - 0.01 K/cumm [facility] Blood 09/14/2024 2:42 PM CDT 09/14/2024 8:29 PM CDT Eleazar Khan MD LAB BLOOD ORDERABLES Fin al Result Performing Organization Address City/[facility]/ZIP Co de Phone Number [facility] [address] Department of [place], [place] [id number] * (ABNORMAL) Creatinine (09/14/2024 2:42 PM CDT) Creatinine 1.43(H) 0.60 - 1.10 mg/dL Blood 09/14/2024 2:42 PM CDT 09/14/2024 8:29 PM CDT Eleazar Khan MD LAB BLOOD ORDERABLES Fin al Result Performing Organization Address [facility] de Phone Number [facility] [address] [facility] [place] [address] * (ABNORMAL) Hepatic function panel (09/14/2024 2:42 PM CDT) Bilirubin, total 1.0 0.1 - 1.2 mg/dL Bilirubin, direct 0.5(H) 0.1 - 0.3 mg/dL [facility] Protein, pl 8.1 6.5 - 8.5 g/dL [facility] Albumin 4.2 3.5 - 5.0 g/dL [facility] Alk phos 58 40 - 130 Units/L [facility] ALT 12 7 - 45 Units/L [facility] AST 27 10 - 45 Units/L [facility] Blood 09/14/2024 2:42 PM CDT 09/14/2024 8:29 PM CDT Eleazar Khan MD LAB BLOOD ORDERABLES Fin al Result Performing Organization Address [facility] de Phone Number [facility] [address] [facility] [place] [address] * ECG 12 lead (09/12/2024 3:06 PM CDT) Xavier Frederick MD ECG ORDERABLES Final Result * Screening Mammogram Bilateral W Carlos (07/19/2023 1:50 PM CHEMIC MANGLER) Anatomical Region Laterality Modality Breast Bilateral Mammography Narrative 07/19/2023 2:22 PM CHEMIC MANGLER Examination: Screening Mammogram Bilateral W Carlos: 07/19/23 Clinical: Screening mammogram, encounter for. Prior Study Comparisons: Comparison was made to the prior available relevant studies at the time of interpretation. Findings: Bilateral No significant masses, malignant type calcifications, skin thickening, nipple retraction, or significant lymphadenopathy is noted in either breast. The CAD review showed no significant findings. The breasts have scattered areas of fibroglandular density. The patient will be notified of results by letter. Impression: BI-RADS ATLAS category (overall): 1 - Negative There is no mammographic evidence of malignancy. Routine Screening Mammogram in 1 Yr is recommended for bilateral Overall Assessment: 1 - Negative us Self Screening Mammogram IMG MAMMO PROCEDURES Fi nal Result * Dexa Axial Skeleton Bone Density 1 Or 2 Site (12/22/2021 1:25 PM CDT) Anatomical Region Laterality Modality Body N/A Digital Radiogra phy 12/22/2021 1:27 PM CDT Impressions 12/22/2021 1:27 PM CDT Osteoporosis. Based on BMD alone, there is a significant increased risk of fracture. If followup is to be done, for technical reasons, it should be performed on this same machine. Electronically signed by: Cristino Richardson M.D. Narrative 12/22/2021 1:27 PM CDT EXAM: Bone mineral density examination HISTORY: Postmenopausal screening bone density.. DXA BMD was done at [facility] on a Mult[employer] CI. Precision testing at this site has resulted in a least significant change of: Lumbar spine 0.031 g/sq cm Total Hip 0.026 g/sq cm Femoral neck 0.040 g/sq cm BMD L1-L4 is 0.773 g/sq cm corresponding to a T score of -2.5. BMD right femoral neck is 0.662 g/sq cm corresponding to a T score of -1.7. BMD total right hip is 0.711 g/sq cm corresponding to a T score of -1.9. The 10-year fracture risk for major osteoporotic fracture: Not calculated. The 10-year fracture risk for hip fracture: Not calculated. COMPARISON: None. Procedure Note Cristino Richardson MD - 12/22/2021 EXAM: Bone mineral density examination HISTORY: Postmenopausal screening bone density.. DXA BMD was done at [facility] on a [employer] CI. Precision testing at this site has resulted in a least significant change of: Lumbar spine 0.031 g/sq cm Total Hip 0.026 g/sq cm Femoral neck 0.040 g/sq cm BMD L1-L4 is 0.773 g/sq cm corresponding to a T score of -2.5. BMD right femoral neck is 0.662 g/sq cm corresponding to a T score of -1.7. BMD total right hip is 0.711 g/sq cm corresponding to a T score of -1.9. The 10-year fracture risk for major osteoporotic fracture: Not calculated. The 10-year fracture risk for hip fracture: Not calculated. COMPARISON: None. IMPRESSION: Osteoporosis. Based on BMD alone, there is a significant increased risk of fracture. If followup is to be done, for technical reasons, it should be performed on this same machine. Electronically signed by: Cristino Richardson M.D. us Dotty Bar MD IMG DXA PROCEDURES Final Re sult from Last 3 Months or Most Recently Relevant to Health Maintenance [place] [address] LOCAL [address] SUPPLEMENT MEDICARE LOCAL [address] [facility] SUPPLEMENT MEDICARE COMMERCIAL GENERIC Advance Directives For more information, please contact: [phone] * Full Code (Latest Code Status on File) Date Activated Date Inactivated Comments 10/29/2023 3:27 PM 11/03/2023 12:45 AM * Full Code Date Activated Date Inactivated Comments 10/29/2023 1:01 AM 10/29/2023 3:27 PM * Full Code Date Activated Date Inactivated Comments 01/08/2021 12:21 PM 01/09/2021 4:50 AM Care Teams Gasoline Dragline Operator Relationship Specialty Start Date End Date Dg Huerta MD PCP - General 10/02/16
--- OUTSIDE RECORDS SUMMARY | 2024-09-28 07:20 | XMS_ITS | Encounter Summary ---
Author Organization [facility] Address [address] [place] [address] Phone Care Team Providers Care Optician Apprentice Dispensing Name Role Phone Dg Huerta MD Primary Care Provider [phone] Encounter Details Date Type Department Care Team (Late st Contact Info) Description 09/12/2024 Results Follow-Up [facility]iology [address] [facility] Medical Office Building [address] [place] [address] Xavier Frederick MD [address] [address] Social History Tobacco Use Types Packs/Day Years [...] on file Legal Sex Female 12:17 AM RETANNER Gender Identity Not on file Sexual Orientation [...] Plan Chronic Care Management Worsening( 2:58 PM RETANNER) No Viola Murphy RN Note: Problem: Chronic Pain Goals: 1. Minimize further functional decline 2. Maximize quality of life 3. Control pain Strategies: - Activity/exercise program recommendation - Conservative stepwise pain medicine strategy with multi-disciplinary approach - Recommend healthy lifestyle strategies and compensatory methods as needed documented as of this encounter Visit Diagnoses Not on filedocumented in this encounter Care Teams Optician Apprentice Dispensing Relationship Specialty Start Date End Date Dg Huerta MD PCP - General 10/02/16 documented as of this encounter
--- OUTSIDE RECORDS SUMMARY | 2024-09-28 07:21 | XMS_ITS | Referral Summary ---
Author Organization [facility] Address [address] [place] [address] Care Team Providers Care Surveillance Specialist Name Role Phone Dg Huerta MD Primary Care Provider [phone] Encounters Date Type Department Care Team Description 09/27/2024 Telephone [facility] Cardiology [address] [facility] Advanced Medicine 8th [place] [address] [place] [address] Xavier Frederick MD Test Results 09/21/2024 4:39 PM CDT - 09/21/2024 11:59 PM CDT Hospital Encounter [facility] [address] [place] [address] Discharge Disposition: Discharge to home or self care 09/19/2024 Telephone [facility] Cardiology [address] [facility] Advanced Medicine 8th [place] [address] [place] [address] Xavier Frederick MD 09/14/2024 7:49 PM CDT - 09/14/2024 11:59 PM CDT Hospital Encounter [id number] [place] [id number] Discharge Disposition: Discharge to home or self care 09/12/2024 Results Follow-Up [facility] Cardiology [address] [place] [address] Office [address] [place] [phone] Xavier Frederick MD 09/12/2024 2:30 PM CDT Office Visit [facility]iology [address] [place] [address] Office [address] [place] [phone] Xavier Frederick MD S/P MVR (mitral valve replacement) (Primary Dx); Heart valve disorder; Shortness of breath 08/18/2024 Telephone [facility] Cardiology [address] 8th [place] [address] [place] [address] JerryesYecenia from Last 3 Months Allergies Active Allergy Reactions Criticality Noted Date [...] 2 (two) times a day 20 tablet 024 2024 Active Additional Information Patient taking differently:20 [...] by mouth 3 (three) times a day 024 2024 Discontinued(T herapy completed) metoclopramide (REGLAN) 10 [...] management - Sinus precautions, HOB elevated - [place] nasal spray - ice packs prn - [...] fixation and radial head replacement (10/28) - NWB RUE x12 weeks + Upper extremity protocol - [...] (10/31/2023 11:21 AM CDT): - Orencia 750mg [id number] [last dose 10/19] Psoriasis 11/18/2013 Overview (10/09/2016): [...] nerves incidentally noted during 10/28/23 ED visit Immunizations Immunization Administration Dates Next Due Influenza, [...] 04/04/2016 Pneumococcal Polysaccharide PPV23 12/06/2008, Tdap 10/28/2023 Social History Tobacco Use Types Packs/Day Years [...] on file Legal Sex Female 12:17 AM DIGITAL TRAFFIC COORDINATOR Gender Identity Not on file Sexual Orientation Not on file Last Filed Vital Signs Vital Sign Reading Time Taken Comments Blood Pressure 122/60 09/12/2024 3:14 PM CDT Lef t arm Pulse 76 09/12/2024 3:14 PM CDT Temperature 36.6 C (97.8 F) 06/29/2024 11:58 AM DIGITAL TRAFFIC COORDINATOR Respiratory Rate 16 06/29/2024 6:30 PM DIGITAL TRAFFIC COORDINATOR Oxygen Saturation 93% 09/12/2024 3:14 PM CDT Inhaled Oxygen Concentration - - Weight 59 kg (130 lb) 09/12/2024 3:13 PM CDT Height 175.3 cm (5' 9 ) 09/12/2024 3:13 PM CDT Body Mass Index 19.2 09/12/2024 3:13 PM CDT Plan of Treatment Not on file Goals Goal Patient Goal Type Associated Problems [...] Plan Chronic Care Management Worsening( 2:58 PM DIGITAL TRAFFIC COORDINATOR) Viola Parkinson RN Note: Problem: Chronic Pain Goals: 1. Minimize further functional decline 2. Maximize quality of life 3. Control pain Strategies: - Activity/exercise program recommendation - Conservative stepwise pain medicine strategy with multi-disciplinary approach - Recommend healthy lifestyle strategies and compensatory methods as needed Medical Devices Implanted Type Area Environmental Services Manager Device Identifier Shelf Expiration Date Model / Serial / Lot [employer]/ Ortho Plate Evos 2.7mm/3.5mm Olecranon W/ Tines 7h R 114mm [id number] - [id number] Implanted:Qty: 1 on 10/29/2023 by Dee Meyer MD at [facility] Right: Forearm [employer]/O rtho [id number] / / [employer]/ Ortho 2.7mm 4.3mm 55mm Lock Self Retain Flat Head Long Bone Small Bone [id number] - [id number] Implanted:Qty: 1 on 10/29/2023 by Dee Meyer MD at [facility] Right: Forearm [employer]/Rich[employer]/O rtho [id number] / / [employer] Evolve 20mm Modular Elbow Standard Head Radial Proline 496-H020 - [id number] Implanted:Qty: 1 on 10/29/2023 by Dee Meyer MD at [facility] Right: Forearm [employer] [id number] 04/06/2031 496-[id number] / / [id number] [employer] Evolve 7.5mm Head System Smooth Elbow +4mm Stem Radial Proline [id number] - [id number] Implanted:Qty: 1 on 10/29/2023 by Dee Meyer MD at [facility] Right: Forearm [employer] 11/18/2028 [id number] / / [id number] [employer]/ Ortho Evos 3.5mm 22mm Self Tap Cortex Screw Bone Sterile [id number] - [id number] Implanted:Qty: 1 on 10/29/2023 by Dee Meyer MD at [facility] Right: Forearm [employer]/O rtho [id number] / / [employer]/ Ortho Evos 3.5mm 18mm Self Tap Cortex Screw Bone Sterile [id number] - [id number] Implanted:Qty: 1 on 10/29/2023 by Dee Meyer MD at [facility] Right: Forearm [employer]/O rtho [id number] / / [employer]/ Ortho Evos 3.5mm 14mm Self Tap Cortex Screw Bone Sterile [id number] - [id number] Implanted:Qty: 1 on 10/29/2023 by Dee Meyer MD at [facility] Right: Forearm [employer]/O rtho [id number] / / [employer]/ Ortho Evos 2.7mm 4.5mm 16mm Self Tap Cortex T8 Screw Bone Mini Plate [id number] - [id number] Implanted:Qty: 1 on 10/29/2023 by Dee Meyer MD at [facility] Right: Forearm [employer]/O rtho [id number] / / [employer]/ Ortho 2.7mm 4.5mm 80mm Self Retaining Screwdriver Self Tap Flat Head [id number] - [id number] Implanted:Qty: 1 on 10/29/2023 by Dee Meyer MD at [facility] Right: Forearm [employer]/O rtho [id number] / / [employer]/ Ortho Evos 3.5mm 24mm Self Tap Lock Screw Bone Sterile [id number] - [id number] Implanted:Qty: 1 on 10/29/2023 by Dee Meyer MD at [facility] Right: Forearm [employer]/O rtho [id number] / / Explanted Type Area Environmental Services Manager Device Identifier Shelf Expiration Date Model / Serial / Lot [employer] /Ortho Evos 3.5mm 24mm Self Tap Cortex Screw Bone Sterile [id number] - [id number] Explanted:Qty : 1 on 10/29/2023 by Dee Meyer MD at [facility] Right: Forearm [employer]/Or tho [id number] / / [employer] /Ortho Evos Mini 2.7mm 4.5mm 80mm Self Tap Cortex T8 Screw Bone [id number] - [id number] Explanted:Qty : 1 on 10/29/2023 by Dee Meyer MD at [facility] Right: Forearm [employer]/Or tho [id number] / / Procedures Procedure Name Priority Date/Time [...] Read Routine (OP Routine) 07/19/2023 1:50 PM DIGITAL TRAFFIC COORDINATOR Screening mammogram, encounter for DEXA AXIAL SKELETON BONE DENSITY 1 OR MORE SITES Schedule Routine, Read Routine (OP Routine) 12/22/2021 1:25 PM CDT Genitourinary syndrome of menopause from Last 3 Months or Most Recently Relevant to Health Maintenance Results * US Outside Reference (09/21/2024 4:39 PM CDT) Impressions [email or web address] - 09/21/2024 4:39 PM CDT These images are for Reference purposes only and have not been reviewed by [facility] Radiology. There will be no report generated by a [facility] Radiologist. Narrative [email or web address] - 09/21/2024 4:39 PM CDT EXAMINATION: Images For Reference Purposes Only us Xavier Frederick MD IMG US PROCEDURES Final Resul t Performing Organization Address [facility] Co de Phone Number [email or web address] * [...] ORDERABLES Fin al Result Performing Organization Address City/[facility]/ZIP Co de Phone Number [facility] [address] Department [place] [address] * (ABNORMAL) Differential, auto (09/14/2024 2:42 PM CDT) Neutrophil abs 7.7(H) 1.5 - 6.5 K/cumm Imm gran abs 0.1 0.0 - 0.1 K/cumm [facility] Lymphocyte abs 1.3 0.8 - 3.3 K/cumm [facility] Monocyte abs 0.8 0.2 - 0.8 K/cumm [facility] Eosinophil abs 0.2 0.0 - 0.5 K/cumm [facility] Basophil abs 0.1 0.0 - 0.1 K/cumm [facility] Neutrophil pct 76.3 % [facility] Comment: Interpretive Data Percent cell count reference ranges are not reported, since discordance with absolute values may lead to misinterpretation of CBC data. Current Interpretive Data was last revised on 2017. Imm gran pct 0.5 % [facility] Comment: Interpretive Data Percent cell count reference ranges are not reported, since discordance with absolute values may lead to misinterpretation of CBC data. Current Interpretive Data was last revised on 2017. Lymphocyte pct 12.5 % [facility] Comment: Interpretive Data Percent cell count reference ranges are not reported, since discordance with absolute values may lead to misinterpretation of CBC data. Current Interpretive Data was last revised on 2017. Monocyte pct 8.3 % [facility] Comment: Interpretive Data Percent cell count reference ranges are not reported, since discordance with absolute values may lead to misinterpretation of CBC data. Current Interpretive Data was last revised on 2017. Eosinophil pct 1.6 % [facility] Comment: Interpretive Data Percent cell count reference ranges are not reported, since discordance with absolute values may lead to misinterpretation of CBC data. Current Interpretive Data was last revised on 2017. Basophil pct 0.8 % [facility] Comment: Interpretive Data Percent cell count reference ranges are not reported, since discordance with absolute values may lead to misinterpretation of CBC data. Current Interpretive Data was last revised on 2017. Blood 09/14/2024 2:42 PM CDT 09/14/2024 8:29 PM CDT Eleazar Khan MD LAB BLOOD ORDERABLES Fin al Result Performing Organization Address [facility] Co de Phone Number [facility] [address] Department [place] [address] * (ABNORMAL) CBC with auto differential (09/14/2024 2:42 PM CDT) WBC 10.1(H) 3.8 - 9.9 K/cumm Hgb 13.9 11.9 - 15.5 g/dL [facility] Hct 42.2 35.6 - 45.5 % [facility] Plt 287 150 - 400 K/cumm [facility] MPV 10.2 9.1 - 12.3 fL [facility] RBC 4.95 3.90 - 5.20 M/cumm [facility] MCV 85.3 81.3 - 96.4 fL [facility] MCH 28.1 27.1 - 33.3 pg [facility] MCHC 32.9 32.3 - 35.7 g/dL [facility] RDW CV 16.2(H) 11.1 - 14.9 % [facility] RDW SD 48.8(H) 35.7 - 48.1 fL [facility] NRBC abs 0.00 0.00 - 0.01 K/cumm [facility] Blood 09/14/2024 2:42 PM CDT 09/14/2024 8:29 PM CDT Eleazar Kahn MD LAB BLOOD ORDERABLES Fin al Result [facility] [address] Department of [employer] [place], [place] [id number] * (ABNORMAL) Creatinine (09/14/2024 2:42 PM CDT) Creatinine 1.43(H) 0.60 - 1.10 mg/dL Blood 09/14/2024 2:42 PM CDT 09/14/2024 8:29 PM CDT Eleazar Khan MD LAB BLOOD ORDERABLES Fin al Result Performing Organization Address [facility] de Phone Number [facility] [address] [facility] [place] [address] * (ABNORMAL) Hepatic function panel (09/14/2024 2:42 PM CDT) Pathologist [facility] Bilirubin, total 1.0 0.1 - 1.2 mg/dL Bilirubin, direct 0.5(H) 0.1 - 0.3 mg/dL [facility] Protein, pl 8.1 6.5 - 8.5 g/dL [facility] Albumin 4.2 3.5 - 5.0 g/dL [facility] Alk phos 58 40 - 130 Units/L [facility] ALT 12 7 - 45 Units/L [facility] AST 27 10 - 45 Units/L [facility] Blood 09/14/2024 2:42 PM CDT 09/14/2024 8:29 PM CDT Eleazar Khan MD LAB BLOOD ORDERABLES Fin al Result Performing Organization Address [facility] de Phone Number [facility] [address] [facility] [place] [address] * ECG 12 lead (09/12/2024 3:06 PM CDT) Xavier Frederick MD ECG ORDERABLES Final Result * Screening Mammogram Bilateral W Carlos (07/19/2023 1:50 PM DIGITAL TRAFFIC COORDINATOR) Anatomical Region Laterality Modality Breast Bilateral Mammography Narrative 07/19/2023 2:22 PM DIGITAL TRAFFIC COORDINATOR Examination: Screening Mammogram Bilateral W Carlos: 07/19/23 [...] bone density.. DXA BMD was done at [facility] on a [employer] CI. Precision testing at this site has [...] bone density.. DXA BMD was done at [facility] on a [employer] CI. Precision testing at this site has [...] Recently Relevant to Health Maintenance Insurance MEDICARE LOCAL [address] SUPPLEMENT MEDICARE MEDICARE LOCAL [address] SUPPLEMENT MEDICARE COMMERCIAL GENERIC Advance Directives For more information, please contact: [phone] * Full Code (Latest Code Status on File) Date Activated Date Inactivated Comments 10/29/2023 3:27 PM 11/03/2023 12:45 AM * Full Code Date Activated Date Inactivated Comments 10/29/2023 1:01 AM 10/29/2023 3:27 PM * Full Code Date Activated Date Inactivated Comments 01/08/2021 12:21 PM 01/09/2021 4:50 AM Care Teams Surveillance Specialist Relationship Specialty Start Date End Date Dg Huerta MD PCP - General 10/02/16
[2024-09-28 07:43] LABS: Estimated Glomerular Filt Rate 44
== END 2024-09-28 07:14 | disposition home or self-care (01) ==
PROVIDERS: PCP Nurse Practitioner Adult Health; Visit Provider Nurse Practitioner Adult Health
DX: N13.30 Unspecified hydronephrosis (principal); R18.8 Other ascites; R16.1 Splenomegaly, not elsewhere classified; K43.9 Ventral hernia without obstruction or gangrene; J90 Pleural effusion, not elsewhere classified
CPT/HCPCS: 74018; 74178; Q9967

== ENCOUNTER 2024-10-11 08:16 | Outpatient (CLI) | payer MEDICARE, OTHER, SELFPAY ==
--- NOTE | 2024-10-05 09:56 | PC.NURSE ---
Pre Radiology instructions Report to the outpatient avani rodriguez on date __10/11/24 ___ at time __0730am for procedure Time: __0930am__ YOU MAY BE MONITORED AT HOSPITAL FOR UP TO 4 HOURS AFTER YOUR PROCEDURE. A visitor will be allowed to accompany the patient into the hospital. You and your visitor will be asked to self-screen and do not enter if you have any COVID symptoms. A mask is OPTIONAL within the hospital. Patients are to have no food or drink 6 hours prior to procedure time Driving will be restricted after the procedure, you must have a person to drive you home. Labs will be drawn in preop area and once reviewed, you will be taken to radiology area for procedure. When the procedure is completed, you will be taken to outpatient where you will be monitored for several hours. You may have one visitor in this area. Other than holding anti-coagulants, patient may take other medication(s) as scheduled. Prior to your appointment date patients are instructed to hold anti-coagulants after discussing with ordering provider to stop. If unable to discontinue anti-coagulants please notify radiologist. ? No aspirin or warfarin (Coumadin) for 7 days prior to the procedure. ? No clopidogrel (Plavix), ticagrelor (Brilinta), prasugrel (Effient) or dabigatran (Pradaxa) for 5 days prior to the procedure. ? No rivaroxaban (Xarelto), apixaban (Eliquis), dipyridamole (Aggrenox or Persantine) or cilostazol (Pletal) for 2 days prior to the procedure. Medications to discontinue per physician: __None Date to take last dose: ____None Please leave all valuables, including medications, at home the day of procedure. The hospital will not accept responsibility for valuables. Wear comfortable, loose fitting clothing.? Follow any additional instructions given to you from ordering provider. Telephone instructions given to ___Patient and asked if any additional questions and then verbalized understanding. Patient advised to call scheduling provider office or registration scheduling [phone] if any additional questions.
[2024-10-05 10:00] VITALS: BMI 23.3
--- NOTE | ~2024-10-11 | US_ITS ---
Procedure: Ultrasound guided right thoracentesis. Indication: right pleural effusion Operating Physician: Blanca Martínez MD. Consent: After a detailed discussion of the procedure, risks, benefits and alternative treatment opti ons, informed consent was obtained from the patient. Time Out: A time out for procedure was performed in presence of Dr. Martínez. The patient's identificati on was verified. Informed consent with agreement of procedure was reviewed. All necessary equipment w as available prior to procedure. Complications: None. Anesthesia: Local. Medication: 1% lidocaine locally. Procedure: Survey ultrasound of right chest was performed which was then prepped and draped in usual sterile fashion. Local anesthesia was administered. The pleural cavity was accessed and 0.7 L serous fluid was removed. The catheter was removed and sterile dressing was applied. Patient tolerated the procedure. The procedure was personally performed by Dr. Martínez. Findings: Sonographic images demonstrate right pleural effusion. Impression: Successful ultrasound guided thoracentesis. Plan: Follow-up chest radiograph will be obtained. Reviewed, dictated and finalized at location A. Impression: Successful ultrasound guided thoracentesis. Plan: Follow-up chest radiograph will be obtained.
--- NOTE | ~2024-10-11 | XR_ITS ---
CHEST RADIOGRAPH CLINICAL HISTORY: Post Right Thoracentesis . COMPARISON: 07/17/2024 TECHNIQUE: Single portable view of the chest. FINDINGS Sternal wires and mediastinal clips are identified, the wires are midline and intact. Prosthetic valve is identified within the mitral position. The remainder of the cardiomediastinal silhouette is otherwise unremarkable. Decreased right-sided pleural effusion when compared with previous examination. Suspect this effusion is loculated and with multiple septations based on CT examination. The right lung is fully inflated following right-sided thoracentesis. The left hemithorax is clear. IMPRESSION: No pneumothorax following right-sided thoracentesis with decreased right-sided pleural effusion. Reviewed, dictated and finalized at location A.
--- OUTSIDE RECORDS SUMMARY | 2024-10-11 08:29 | XMS_ITS | Encounter Summary ---
Author Organization [facility] Address [address] [place] [address] Phone Care Team Providers Care Country Director Name Role Phone Dg Huerta MD Primary Care Provider [phone] Xavier Frederick MD Unavailable [phone] Encounter Details Date Type Department Care Team (Latest Contact Info) Description 07/19/2024 Orders Only [facility] Scanning, Provider Social History Tobacco Use Types Packs/Day Years Used Date Smoking Tobacco: Former Cigarettes 1 58.3 S tarted: 1967 Smokeless Tobacco: Never Alcohol [...] on file Legal Sex Female 12:17 AM SOCIAL WORKER Gender Identity Not on file Sexual Orientation Not on file documented as of this encounter Plan of Treatment Not on file documented as of this encounter Goals Goal Patient Goal Type Associated Problems Recent Progress Patient-Stated? Author YONIS General Goal - Patient schedules and keeps appointments with all recommended providers [facility] Care Management No Magaly Farmer, RN Note: Problem: Potential for medical complications [...] Plan Chronic Care Management Worsening( 2:58 PM SOCIAL WORKER) No Viola Murphy, SARINA Note: Problem: Chronic Pain Goals: 1. Minimize further functional decline 2. Maximize quality of life 3. Control pain Strategies: - Activity/exercise program recommendation - Conservative stepwise pain medicine strategy with multi-disciplinary approach - Recommend healthy lifestyle strategies and compensatory methods as needed documented as of this encounter Procedures Procedure Name Priority Date/Time Associated Diagnosis Comments CARDIOLOGY DOCUMENT SCAN 07/18/2024 documented in this encounter Results * Cardiology Document Scan (07/18/2024) Anatomical Region Laterality Modality Other us Provider Scanning [facility] CARDIAC SERVICES PROCEDURES Edited Result - Final documented in this encounter Visit Diagnoses Not on filedocumented in this encounter Care Teams Country Director Relationship Specialty Start Date End Date Dg Huerta MD PCP - General 10/02/16 Xavier Frederick MD [address] [place] [address] Referring Physician Cardiology 10/02/24 documented as of this encounter
--- OUTSIDE RECORDS SUMMARY | 2024-10-11 08:29 | XMS_ITS | Clinical Summary ---
Author Organization [facility] Address [address] [place] [address] Care Team Providers Care Computer Project Manager Name Role Phone Dg Huerta MD Primary Care Provider [phone] Source Comments [facility],non-owned Affiliates and Associated Physician Practices is amultiple site organization consisting of ambulatory clinics and hospital sitesin [place], [place], [place] and [place]. This disclosure is being madepursuant to the Care Everywhere program and may not contain all information available regarding this patient. Last updated 18.[facility] Allergies No known active allergies Immunizations Name [...] VACCINE (1 - 2023-2 5 season) 2024 DEPRESSION SCREENING 07/05/2024 INFLUENZA VACCINE (Season Ended) 2025 05/15/20 19 Respiratory Syncytial Virus (RSV) Vaccine Pt: or [...] age to complete this topic Care Teams Computer Project Manager Relationship Specialty Start Date End Date Dg Huerta MD [address] [place] [address] [facility] General 03/04/22
--- OUTSIDE RECORDS SUMMARY | 2024-10-11 08:29 | XMS_ITS ---
Author Name [place] duck[place] Angle Address [address] [place] [address] Phone [phone] Organization [facility] Address [address] [place] [address] Phone [phone] Care Team Providers Care Climate Change Risk Assessor Name Role Phone Jessi Taveras Angle Unavailable [phone] Sanchez Coronado Unavailable [phone] Kaycee Sena Unavailable [phone] Lesly Corcoran Unavailable Eleazar Khan Unavailable Functional Status No Results Mental Status No Results Allergies and Intolerances Name Onset Date Reaction Severity nizatidine (Allergy) WedNov 01 23:36:00 EDT AcipHex (Allergy) WedNov 01 23:35:00 EDT 2023 Encounters Program Name Primary Diagnosis Admission Date/Time Dis charge Date/Time Assisted Living Area Hypertensive heart disease with heart failure WedAug 21 06:50:00 EST 2024 [facility] WedAug 05 04:45:00 EST 2024Aug 21 06:45:00 2024 [facility] WedNov 01 17:00:00 EDT 2023November 26 07:00:00 EDT 2023 [facility] Aug 27 19:00:00 EST 2024 Immunizations Name Dates Status TST-PPD intradermal WedNovember 02 01:00:00 EDT 2023 Completed TST-PPD intradermal WedNovember 04:00:00 EDT 2023 Completed TST-PPD intradermal WedNovember 09 01:00:00 EDT 2023 Completed TST-PPD intradermal Tue Aug 08 01:00:00 EST 2024 Completed TST-PPD intradermal Tue Aug 15 01:00:00 EST 2024 Completed TST-PPD intradermal Sun Aug 06 01:00:00 EST 2024 Completed TST-PPD intradermal Sun Aug 13 01:00:00 EST 2024 Completed TST-PPD intradermal WedNovember 11 01:00:00 EDT 2023 Completed Medications Medication Directions Start Date End Date nystatin 100,000 unit/gram topical powder 1 POWDER (GRAM) Topical PRN 2 Times Daily Indication: Fungal infection, apply to abdominal folds WedSep 29 09:00:00 EDT 2024 potassium chloride ER 20 mEq [...] COATED) Oral 1 Time Daily Indication: depression PRODUCTION SKI REPAIRER supervision x1 WedSep 19 01:00:00 EDT 2024 [...] Or al 3 Times Weekly Indication: CHF PRODUCTION SKI REPAIRER supervision X1 WedSep 01 01:00:00 EST 2024Sep 11 10:28:00 EDT 2024 colchicine 0.6 mg tablet 2 tab TABLET Or al 1 Time Daily for 1 Day Indication: Gout PRODUCTION SKI REPAIRER Supervision WedSep 01 10:00:00 EST 2024Sep 02 09:59:00 EST 2024 colchicine 0.6 mg tablet 1 TABLET Oral 1 Time Daily for 1 Day Indication: Gout PRODUCTION SKI REPAIRER supervision WedSep 01 11:00:00 EST 2024Sep 02 10:59:00 EST 2024 allopurinoL 100 mg tablet 1 tab TABLET O ral 1 Time Daily Indication: gout PRODUCTION SKI REPAIRER supervision X1 WedSep 01 01:00:00 EST 2024 [...] TABLET Oral 2 Times Daily Indication: Edema PRODUCTION SKI REPAIRER Supervision X 1 X 3 WedAug 27 12:34:00 EST 2024 Blood Pressure Kit n/a KIT Other 2 Time s Daily for 7 Days Indication: PRODUCTION SKI REPAIRER VitalsCNA supervision X 1 X 3 WedAug 23 01:00:00 EST 2024Aug 30 00:59:00 EST 2024 Blood Pressure Kit n/a KIT Other 2 Time s Monthly Indication: PRODUCTION SKI REPAIRER Vitals Indication: PRODUCTION SKI REPAIRER Vitals WedAug 23 01:00:00 EST 2024 hydrOXYzine HCL 25 mg tablet 25 mg TABLET Oral PRN Every 6 Hours Indication: Itching WedAug 21 04:30:00 EST 2024Aug 21 01:00:00 EST 2024 bisacodyL 5 mg tablet,delayed release 1 TABLET, DELAYED RELEASE (ENTERIC COATED) Oral PRN (Max 1 Doses) Indication: Constipation Wedb 17 13:00:00 EST 2024 Feb 17 13:37:00 EST 2024 hydrocortisone 1 % topical cream 1 CREAM (GRAM) Topical 2 Times Daily Indication: itching Wedb 17 13:00:00 EST 2024 Mon Feb 17 13:50:00 EST 2024 folic acid 1 mg tablet 1 TABLET Oral 1 T adria Daily Indication: Supplement Wed Feb 17 13:00:00 EST 2024 Mon Feb 17 13:51:00 EST 2024 furosemide 40 mg tablet 1 TABLET Oral 2 Times Daily Indication: Edema Wedb 17 13:00:00 EST 2024 Mon Feb 17 13:52:00 EST 2024 spironolactone 25 mg tablet 1 TABLET Oral 1 Time Daily Indication: Edema Wedb 17 13:00:00 EST 2024b 17 13:52:00 EST 2024 cetirizine 5 mg tablet 1 TABLET Oral 1 T adria Daily Indication: Allergies Wedb 17 13:00:00 EST 2024b 17 13:53:00 EST 2024 DULoxetine 20 mg capsule,delayed release 1 CAPSULE,DELAYED RELEASE (ENTERIC COATED) Oral 1 Time Daily Indication: Depression Wedb 17 13:00:00 EST 2024b 17 13:54:00 EST 2024 omeprazole 40 mg capsule,delayed release 1 CAPSULE,DELAYED RELEASE (ENTERIC COATED) Oral 1 Time Daily Indication: Gerd Wedb 17 13:00:00 EST 2024b 17 13:54:00 EST 2024 albuterol sulfate HFA 90 mcg/actuation aerosol inhaler 2 puffs HFA AEROSOL WITH ADAPTER (GRAM) Inhalation PRN (Max 6 Doses) Indication: SOB Wedb 17 13:00:00 EST 2024 Feb 17 13:26:00 EST 2024 Dulcolax (bisacodyl) 10 mg rectal suppository 1 SUPPOSITORY, RECTAL Rectal PRN (Max 1 Doses) Indication: Constipation Wedb 17 13:00:00 EST 2024b 17 13:55:00 EST 2024 traZODone 50 mg tablet 1 TABLET Oral 1 T adria Daily Indication: Insomnia Wedb 17 13:00:00 EST 2024b 17 13:56:00 EST 2024 albuterol sulfate HFA 90 mcg/actuation aerosol inhaler 2 puffs HFA AEROSOL WITH ADAPTER (GRAM) Inhalation PRN Every 4 Hours Indication: SOB WedAug 21 13:24:00 EST 2024Aug 21 13:57:00 EST 2024 [...] abdominal foldsNurse admin WedAug 21 13:00:00 EST 2024Sep 29 09:01:00 EDT 2024 bisacodyL 5 mg tablet,delayed release 1 TABLET, DELAYED RELEASE (ENTERIC COATED) Oral PRN 1 Time Daily Indication: ConstipationCNA supervision X 1 WedAug 21 13:32:00 EST 2024 hydrocortisone 1 % topical cream 1 CREAM (GRAM) Topical 2 Times Daily Indication: itchingCNA supervision X 1 X 4 WedAug 21 13:37:00 EST 2024Sep 16 18:41:00 EDT 2024 folic acid 1 mg tablet 1 TABLET Oral 1 T adria Daily Indication: SupplementCNA Supervision X 1 WedAug 21 13:50:00 EST 2024 furosemide 40 mg tablet 1 TABLET Oral 2 Times Daily Indication: EdemaCNA Supervision X 1 X 4 WedAug 21 13:51:00 EST 2024Aug 27 12:37:00 EST 2024 spironolactone 25 mg [...] TABLET Oral 1 Time Weekly Indication: Athritis PRODUCTION SKI REPAIRER supervision X 1 WedAug 21 13:00:00 EST [...] Time s Daily for 7 Days Indication: PRODUCTION SKI REPAIRER VitalsCNA supervision X 1 X 3 WedAug 21 13:00:00 EST 2024Aug 23 07:16:00 EST 2024 dicyclomine 20 mg tablet 1 tablet TABLET Oral PRN 1 Time Daily Indication: IBS WedAug 15 12:26:00 EST 2024Aug 21 01:00:00 EST 2024 lactulose 20 gram/30 mL oral solution 30 mL SOLUTION, ORAL Oral 1 Time Daily Indication: constipation WedAug 10 09:00:00 EST 2024b 01:00:00 EST 2024 methotrexate sodium 2.5 mg tablet 3 tablet TABLET Oral 1 Time Weekly Indication: Arthritis WedAug 10 02:30:00 EST 2024b 01:00:00 EST 2024 bisacodyL 10 mg rectal suppository 1 suppository SUPPOSITORY, RECTAL Rectal PRN 1 Time Daily Indication: constipation WedAug 10 02:00:00 EST 2024Aug 21 01:00:00 EST 2024 lidocaine 4 % topical patch 1 patch ADHESIVE PATCH, MEDICATED Topical 2 Times Daily Indication: pain WedAug 08 09:00:00 EST 2024Aug 21 01:00:00 EST 2024 Dulcolax (bisacodyl) 10 mg rectal suppository 1 supp SUPPOSITORY, RECTAL Rectal PRN 1 Time Daily Indication: Constipation WedAug 07 11:25:00 EST 2024Aug 21 01:00:00 EST 2024 traZODone 50 mg tablet 1 tablet TABLET O ral 1 Time Daily Indication: Insomnia WedAug 07 12:51:00 EST 2024Aug 21 01:00:00 EST 2024 acetaminophen 325 mg tablet 2 tablets TABLET Oral PRN Every 4 Hours Indication: Mild pain or fever WedAug 07 12:52:00 EST 2024Aug 21 01:00:00 EST 2024 potassium chloride ER 20 mEq tablet,extended release(part/cryst) 1 tab TABLET, EXT RELEASE, PARTICLES/CRYSTALS Oral 1 Time Daily Indication: hypokalemia WedAug 07 17:52:00 EST 2024Aug 21 01:00:00 EST 2024 nystatin 100,000 unit/gram topical powder one application POWDER (GRAM) Topical 2 Times Daily Indication: Fungal infectionApply powder to abdominal folds twice daily. WedAug 06 05:00:00 EST 2024Aug 21 01:00:00 EST 2024 TubersoL 5 tub. unit/0.1 mL intradermal injection solution 0.1 ml VIAL (ML) Intradermal 1 Time Weekly for 2 Weeks Indication: . 1st injection on admission, then one week after. Read between 48 and 72 hours Sun Aug 06 15:09:00 2024 Sun Feb 16 15:08:00 2024 TubersoL 5 tub. unit/0.1 mL intradermal injection solution 0.1 ml VIAL (ML) Intradermal 1 Time Weekly for 2 Weeks Indication: . 1st injection on admission, then one week after. Read between 48 and 72 hours Sat b 11:00:00 2024 Sun b 15:10:00 2024 TubersoL 5 tub. unit/0.1 mL [...] Daily Indication: Constipation Sat Aug 05 10:24:00 2024b 01:00:00 EST 2024 hydrocortisone 1 % topical cream 1 application CREAM (GRAM) Topical 2 Times Daily Indication: Apply to affected areas every 12 hours Sat Aug 05 10:30:00 2024b 01:00:00 EST 2024 traZODone 50 mg tablet 1 tablet TABLET O ral 1 Time Daily Indication: Sleep Sat b 10:32:00 2024 Mon b 03 12:52:00 EST 2024 acetaminophen 325 mg tablet 2 tablets TABLET Oral PRN Every 4 Hours Indication: Mild pain or fever Sat b 10:33:00 2024 Mon b 03 12:53:00 EST 2024 hydrOXYzine HCL 25 mg tablet 1 tablet TABLET Oral PRN Every 6 Hours Indication: Itching Sat b 10:30:00 2024 Mon b 03 18:21:00 EST 2024 methotrexate sodium 2.5 mg tablet 1 tablet TABLET Oral 1 Time Weekly Indication: Arthritis Sat b 10:30:00 EST 2024 Wed Feb 05 23:13:00 EST 2024 folic acid 1 mg tablet 1 tablet TABLET O ral 1 Time Daily Indication: Supplement Sat Aug 05 10:50:00 EST 2024b 01:00:00 EST 2024 furosemide 40 mg tablet 1 tablet TABLET Oral 2 Times Daily Indication: CHF Sat Aug 05 10:51:00 EST 2024b 01:00:00 EST 2024 [...] COATED) Oral 1 Time Daily Indication: Depression Sat Aug 05 10:56:00 EST 2024b 01:00:00 EST 2024 omeprazole 40 mg capsule,delayed release 1 capsule CAPSULE,DELAYED RELEASE (ENTERIC COATED) Oral 1 Time Daily Indication: GERD WedAug 05 11:00:00 EST 2024b 01:00:00 EST 2024 dicyclomine 20 mg tablet 1 tablet TABLET Oral 1 Time Daily Indication: IBS WedAug 05 11:00:00 EST 2024 Tue Aug 15 12:27:00 EST 2024 Ventolin HFA 90 mcg/actuation [...] Ora l 1 Time Daily Indication: edema WedNovember 03 09:00:00 EDT 2023November 26 01:00:00 EDT 2023 busPIRone 10 mg tablet 1 tab TABLET Oral 1 Time Daily Indication: Depression WedNovember 02 09:10:00 EDT 2023November 02 13:48:00 EDT 2023 Orencia 125 mg/mL subcutaneous syringe 250 mg SYRINGE (ML) Subcutaneous 1 Time Monthly Indication: RA Pt will go to [facility] outpatient for infusion. 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 * Emily Ron will be involved in goal development to the best of his or her ability.* Code: * Start Date: WedNovember 03 00:00:00 EDT 2023 * End Date: * Text: Emily Ron will be involved in goal development to the best of his or her ability. * Emily Ron has family/friends who are supportive.* Code: * Start Date: WedNovember 03 00:00:00 EDT 2023 * End Date: * Text: Emily Ron has family/friends who are supportive. * Emily Ron's mobility level is different than prior level due to current medical condition.* Code: * Start Date: WedNovember 03 00:00:00 EDT 2023 * End Date: * Text: Emily Conways mobility level is different than prior level due to current medical condition. * Emily Ron has a dx of depression and is currently on an antidepressant.* Code: * Start Date: WedNovember 03 00:00:00 EDT 2023 * End Date: * Text: Emily Ron has a dx of depression and is currently on an antidepressant. * LSS_Social Services- Ariadne will be involved in discharge planning.* Code: * Start Date: WedNovember 03 00:00:00 EDT 2023 * End Date: * Text: LSS_Social Services- Ariadne will be involved in discharge planning. * LSS_Falls - Ariadne is at risk for falls/injury asevidenced by: history of falls, cognitivestatus/behavior, vision status, continence,mobility, balance. * Code: * Start Date: WedNovember 21 00:00:00 EDT 2023 * End Date: * Text: LSS_Falls - Ariadne is at risk for falls/injury asevidenced by: history of falls, cognitivestatus/behavior, vision status, continence,mobility, balance. * LSS_ADLs - Ariadne has ADL selfcare [...] at risk for developing impaired skinintegrity. * LSS_Pain - Ariadne is experiencing pain or is at highrisk for pain.* Code: * Start Date: WedNovember 21 00:00:00 EDT 2023 * End Date: * Text: LSS_Pain - Ariadne is experiencing pain or is at highrisk for pain. * LSS_Skin Integrity - Ariadne has alteration in skinintegrity. Wound type:_surgical , woundlocation:_right arm .* Code: * Start Date: WedNovember 21 00:00:00 EDT 2023 * End Date: * Text: LSS_Skin Integrity - Ariadne has alteration in skinintegrity. Wound type:_surgical , woundlocation:_right arm . * [id number] Ariadne receives a therapeutic diet. (12)* Code: * Start Date: WedAug 14 00:00:00 2024 * End Date: * Text: [id number] Ron receives a therapeutic diet. (12) * MATTHEWSocial ServicesLarisa Ron's wishes will be followed (Advanced Directive/Code Status).* Code: * Start Date: WedAug 15 00:00:00 2024 * End Date: * Text: MATTHEWSocial ServicesLarisa Ron's wishes will be followed (Advanced Directive/Code Status). * MATTHEWSocial ServicesLarisa Ron will be involved in goal development to the best of his or her ability.* Code: * Start Date: WedAug 15 00:00:00 2024 * End Date: * Text: MATTHEWSocial Sandy Ron will be involved in goal development to the best of his or her ability. * MATTHEWSocial Sandy Ron has family/friends who are supportive.* Code: * Start Date: WedAug 15 00:00:00 2024 * End Date: * Text: MATTHEWSocial Sandy Ron has family/friends who are supportive. * MATTHEWSocial Sandy Ron's mobility level is different than prior level due to current medical condition.* Code: * Start Date: WedAug 15 00:00:00 2024 * End Date: * Text: MATTHEWSocial Sandy Ron's mobility level is different than prior level due to current medical condition. * MATTHEWSocial Sandy Ron will be involved in discharge planning.* Code: * Start Date: WedAug 15 00:00:00 2024 * End Date: * Text: MATTHEWSocial ServicesLarisa Ron will be involved in discharge planning. * MATTHEWBowel Alterations Larisa Ron has a bowelelimination problem as evidenced by: constipation (x ),diarrhea ( ), history of fecal impaction ( ), bowelincontinence ( ).x* Code: * Start Date: WedAug 18 00:00:00 2024 * End Date: * Text: LSS_Bowel Alterations - Ariadne has a bowelelimination problem as evidenced by: constipation (x ),diarrhea ( ), history of fecal impaction ( ), bowelincontinence ( ).x * LSS_Psychotropic Drug Use - Use of psychotropic drug use places Ariadne at risk for drug-related side effects.* Code: * Start Date: WedAug 18 00:00:00 EST 2024 * End Date: * Text: LSS_Psychotropic Drug Use - Use of psychotropic drug use places Ariadne at risk for drug-related side effects. * LSS_Falls - Ariadne is at risk for falls/injury as evidenced by: history of falls, cognitive status/behavior, vision status, continence, mobility, balance.* Code: * Start Date: WedAug 18 00:00:00 EST 2024 * End Date: * Text: LSS_Falls - Ariadne is at risk for falls/injury as evidenced by: history of falls, cognitive status/behavior, vision status, continence, mobility, balance. * LSS_Skin Integrity - (Potential Alteration of)- Ariadne is at risk for developing impaired skin integrity.* Code: * Start Date: WedAug 18 00:00:00 EST 2024 * End Date: * Text: LSS_Skin Integrity - (Potential Alteration of)- Ariadne is at risk for developing impaired skin integrity. * LSS_ADLs - Ariadne has ADL selfcare deficit related to decreased mobility and muscle weakness* Code: * Start Date: WedAug 18 00:00:00 EST 2024 * End Date: * Text: RAVENS_ADLs Larisa Ron has ADL selfcare deficit related to decreased mobility and muscle weakness Resolved Concerns * Problem Fall on same [...] * Start Date: WedNov 01 00:00:00 EDT 2024 * End Date: WedAug 07 00:00:00 EST [...] Vital Sign Measurement Date Systolic Blood Pressure 164.00 mm[Hg] WedOct 07 22:28:40 EDT 2025 Diastolic Blood Pressure 59.00 mm[Hg] [facility] Oct 07 22:28:40 EDT 2024 Body weight 167.40 [lb_av] [facility] Oct 07 22:28 :40 EDT 2024 Heart Rate 69.00 /min [facility] Oct 07 22:28 :40 EDT 2024 Body temperature 98.20 [degF] [facility] Oct 07 22:2 8:40 EDT 2024 Respiratory rate 18.00 /min [facility] Oct 07 22:2 8:40 EDT 2024 Pulse Oximetry 98.00 % [facility] Oct 07 22:28 :40 EDT 2024 Systolic Blood Pressure 150.00 mm[Hg] WedSep 20 [...] EST 2024 Systolic Blood Pressure 137.00 mm[Hg] Wedb 25 10:09:03 EST 2024 Diastolic Blood Pressure 55.00 mm[Hg] Tue Feb 25 10:09:03 EST 2024 Heart Rate 73.00 /min Tue Feb 25 10:09 :03 EST 5 Respiratory rate 16.00 /min Tue Feb 25 10:0 9:03 EST 5 Systolic Blood Pressure 132.00 mm[Hg] Mon Feb 24 21:32:02 EST 5 Diastolic Blood Pressure 56.00 mm[Hg] Mon Feb 24 21:32:02 EST 5 Heart Rate 67.00 /min Mon Feb 24 21:32 :02 EST 5 Respiratory rate 20.00 /min Mon Feb 24 21:3 2:02 EST 2024 Systolic Blood Pressure 131.00 mm[Hg] Mon Feb 24 11:41:51 EST 5 Diastolic Blood Pressure 56.00 mm[Hg] Mon Feb [...] /min Sun Feb 23 22:02 :41 EST 5 Respiratory rate 18.00 /min Sun Feb 23 22:0 2:41 EST 5 Systolic Blood Pressure 116.00 mm[Hg] Sun Feb 23 15:23:55 EST 5 Diastolic Blood Pressure 66.00 mm[Hg] Sun Feb 23 15:23:55 EST 2025 Heart Rate 108.00 /min Sun Feb 23 15:23 :55 EST 5 Respiratory rate 20.00 /min Sun Feb 23 15:2 3:55 EST 5 Systolic Blood Pressure 139.00 mm[Hg] Sat Feb 22 20:46:46 EST 5 Diastolic Blood Pressure 64.00 mm[Hg] Sat Feb 22 20:46:46 EST 5 Heart Rate 75.00 /min Sat Feb 22 20:46 :46 EST 5 Respiratory rate 18.00 /min Sat Feb 22 20:4 6:46 EST 5 Systolic Blood Pressure 123.00 mm[Hg] Sat Feb 22 11:39:58 EST 5 Diastolic Blood Pressure 51.00 mm[Hg] Sat Feb 22 11:39:58 EST 5 Heart Rate 69.00 /min Sat Feb 22 11:39 :58 EST 5 Respiratory rate 18.00 /min Sat Feb 22 11:3 9:58 EST 5 Systolic Blood Pressure 129.00 mm[Hg] Fri Feb 21 23:10:50 EST 5 Diastolic Blood Pressure 64.00 mm[Hg] Fri Feb 21 23:10:50 EST 2025 Heart Rate 70.00 /min Fri Feb 21 23:10 :50 EST 5 Respiratory rate 18.00 /min Fri Feb 21 23:1 0:50 EST 5 Systolic Blood Pressure 143.00 mm[Hg] Fri Feb 21 12:34:54 EST 5 Diastolic Blood Pressure 65.00 mm[Hg] Fri Feb 21 12:34:54 EST 5 Heart Rate 80.00 /min Fri Feb 21 [...] /min Amber Feb 20 12:0 4:08 EST 5 Systolic Blood Pressure 156.00 mm[Hg] Wed Feb 19 20:52:25 EST 5 Diastolic Blood Pressure 68.00 mm[Hg] Wed Feb 19 20:52:25 EST 5 Systolic Blood Pressure 156.00 mm[Hg] Wed Feb 19 20:52:25 EST 5 Diastolic Blood Pressure 68.00 mm[Hg] Wed Feb 19 20:52:25 EST 2024 Body weight 183.70 [lb_av] Wed Feb 19 [...] /min Wed Feb 19 14:2 7:34 EST 2024 Systolic Blood Pressure 128.00 mm[Hg] e Feb 18 19:30:33 EST 5 Diastolic Blood Pressure 68.00 mm[Hg] e Feb 18 19:30:33 EST 2024 Body weight 183.40 [lb_av] e Feb 18 19:30 :33 EST 5 Heart Rate 68.00 /min e Feb 18 19:30 :33 EST 5 Body temperature 97.50 [degF] e Feb 18 19:3 0:33 EST 2024 Respiratory rate 18.00 /min Wed Feb 18 19:3 0:33 EST 2024 Pulse [...] 1:12 EST 5 Respiratory rate 18.00 /min Tue Feb 18 09:2 1:12 EST 2024 Pulse Oximetry 92.00 % Wedb 18 09:21 :12 EST 2024 Systolic Blood Pressure 134.00 mm[Hg] Wed Feb 17 19:26:25 EST 2024 Diastolic Blood Pressure 65.00 mm[Hg] Wed Feb 17 19:26:25 EST 2024 Heart Rate 75.00 /min Wed Feb 17 19:26 :25 EST 2024 Body temperature 98.10 [degF] Wed Feb 17 19:2 6:25 EST 2024 Respiratory rate 18.00 /min Wed Feb 17 19:2 6:25 EST 2024 Pulse Oximetry 92.00 % Wed Feb 17 19:26 :25 EST 2024 Systolic Blood Pressure 131.00 mm[Hg] Wed Feb 17 10:50:13 EST 2024 Diastolic Blood Pressure 65.00 mm[Hg] Wed Feb 17 10:50:13 EST 2024 Heart Rate 80.00 /min Wed Feb 17 10:50 :13 EST 2024 Body temperature 97.60 [degF] [facility] Feb 17 10:5 0:13 EST 2024 Respiratory rate 18.00 /min Wed Feb 17 10:5 0:13 EST 2024 Pulse Oximetry 93.00 % Wed Feb 17 10:50 :13 EST 2024 Systolic Blood Pressure 134.00 mm[Hg] Wed Feb 17 01:00:00 EST 2024 Diastolic Blood Pressure 65.00 mm[Hg] Wed Feb 17 01:00:00 EST 2024 Heart Rate 75.00 /min [facility] Feb 17 01:00 :00 EST 2024 Body weight 187.00 [lb_av] Wed Feb 17 01:00 :00 EST 2024 Body temperature 98.10 [degF] [facility] Feb 17 01:0 0:00 EST 2024 Respiratory rate 18.00 /min Wed Feb 17 01:0 0:00 EST 2024 Pulse Oximetry 96.00 % Wed Feb 17 01:00 :00 EST 2024 Body Height 69.00 [in_i] Wed Feb 17 01:00 :00 EST 2024 Systolic Blood Pressure 133.00 mm[Hg] [facility] Feb 17 00:12:44 EST 5 Diastolic Blood Pressure 61.00 mm[Hg] [facility] Feb 17 00:12:44 EST 2024 Heart Rate 70.00 /min Mon Feb 17 00:12 :44 EST 2024 Body temperature 98.30 [degF] Mon Feb 17 00:1 2:44 EST 2024 Respiratory rate 18.00 /min Mon Feb 17 00:1 2:44 EST 2024 Pulse Oximetry 96.00 % Mon Feb 17 00:12 :44 EST 2024 Body weight 187.20 [lb_av] Sun Feb 16 14:11 :03 EST 2024 Systolic Blood Pressure 132.00 mm[Hg] Sun Feb 16 10:20:10 EST 2024 Diastolic Blood Pressure 57.00 mm[Hg] Sun Feb 16 10:20:10 EST 2024 Heart Rate 66.00 /min Sun Feb 16 10:20 :10 EST 2024 Body temperature 98.10 [degF] Sun Feb 16 10:2 0:10 EST 2024 Respiratory rate 16.00 /min Sun Feb 16 10:2 0:10 EST 2024 Pulse Oximetry 91.00 % Sun Feb 16 10:20 :10 EST 2024 Systolic Blood Pressure 138.00 mm[Hg] Sat Feb 15 23:43:15 EST 5 Diastolic Blood Pressure 65.00 mm[Hg] Sat Feb 15 23:43:15 EST 2024 Heart Rate 72.00 /min Sat Feb 15 23:43 :15 EST 2024 Body temperature 98.30 [degF] Sat Feb 15 23:4 3:15 EST 2024 Respiratory rate 18.00 /min Sat Feb 15 23:4 3:15 EST 2024 Pulse Oximetry 93.00 % Sat Feb 15 23:43 :15 EST 2024 Body weight 186.20 [lb_av] Sat Feb 15 12:52 :12 EST 5 Systolic Blood Pressure 127.00 mm[Hg] Sat Feb 15 09:10:19 EST 5 Diastolic Blood Pressure 58.00 mm[Hg] Sat Feb 15 09:10:19 EST 2024 Heart Rate 70.00 /min Sat Feb 15 09:10 :19 EST 2024 Body temperature 97.70 [degF] Sat Feb 15 09:1 0:19 EST 5 Respiratory rate 16.00 /min Sat Feb 15 09:1 0:19 EST 2024 Pulse Oximetry 90.00 % Sat Feb 15 09:10 :19 EST 5 Systolic Blood Pressure 121.00 mm[Hg] Fri Feb 14 22:30:20 2024 Diastolic Blood Pressure 55.00 mm[Hg] Fri Feb 14 22:30:20 2024 Heart Rate 70.00 /min Fri Feb 14 22:30 :20 2024 Body temperature 97.80 [degF] Fri Feb 14 22:3 0:20 EST 2024 Respiratory rate 18.00 /min Fri Feb 14 22:3 0:20 2024 Pulse Oximetry 94.00 % Fri Feb 14 22:30 :20 2024 Systolic Blood Pressure 132.00 mm[Hg] Fri Feb 14 13:52:51 EST 2024 Diastolic Blood Pressure 59.00 mm[Hg] Fri Feb 14 13:52:51 2024 Body weight 191.40 [lb_av] Fri Feb 14 13:52 :51 2024 Heart Rate 79.00 /min Fri Feb 14 13:52 :51 2024 Body temperature 97.40 [degF] Fri Feb 14 13:5 2:51 2024 Respiratory rate 20.00 /min Fri Feb 14 13:5 2:51 2024 Pulse Oximetry 96.00 % Fri Feb 14 13:52 :51 2024 Systolic Blood Pressure 148.00 mm[Hg] Amber Feb 13 22:20:37 2024 Diastolic Blood Pressure 71.00 mm[Hg] Amber Feb 13 22:20:37 2024 Heart Rate 97.00 /min Amber Feb 13 22:20 :37 2024 Body temperature 97.80 [degF] Amber Feb 13 22:2 0:37 2024 Respiratory rate 18.00 /min Amber Feb 13 22:2 0:37 2024 Pulse Oximetry 95.00 % Amber Feb 13 22:20 :37 2024 Body weight 191.60 [lb_av] Amber Feb 13 16:06 :44 2024 Systolic Blood Pressure 135.00 mm[Hg] Amber Feb 13 09:33:37 2024 Diastolic Blood Pressure 67.00 mm[Hg] Amber Feb 13 09:33:37 2024 Heart Rate 76.00 /min Amber Feb 13 09:33 :37 2024 Body temperature 97.60 [degF] Amber Feb 13 09:3 3:37 EST 2025 Respiratory rate 18.00 /min Amber Feb 13 09:3 3:37 EST 2024 Pulse Oximetry 92.00 % Amber Feb 13 09:33 :37 EST 5 Systolic Blood Pressure 137.00 mm[Hg] Wed Feb 12 20:23:00 EST 5 Diastolic Blood Pressure 58.00 mm[Hg] Wed Feb 12 20:23:00 EST 5 Heart Rate 72.00 /min Wed Feb 12 20:23 :00 EST 5 Body temperature 98.00 [degF] Wed Feb 12 20:2 3:00 EST 5 Respiratory rate 20.00 /min Wed Feb 12 20:2 3:00 EST 2024 Pulse Oximetry 94.00 % Wed Feb 12 20:23 :00 EST 2024 Body weight 191.40 [lb_av] Wed Feb 12 11:48 :18 EST 5 Systolic Blood Pressure 134.00 mm[Hg] Wed Feb 12 10:10:30 EST 5 Diastolic Blood Pressure 65.00 mm[Hg] Wed Feb 12 10:10:30 EST 5 Heart Rate 74.00 /min Wed Feb 12 10:10 :30 EST 2024 Body temperature 98.20 [degF] Wed Feb 12 10:1 0:30 EST 5 Respiratory rate 18.00 /min Wed Feb 12 10:1 0:30 EST 2024 Pulse Oximetry 90.00 % Wed Feb 12 10:10 :30 EST 5 Systolic Blood Pressure 131.00 mm[Hg] Wed Feb 12 00:13:11 EST 5 Diastolic Blood Pressure 51.00 mm[Hg] Wed Feb 12 00:13:11 EST 5 Heart Rate 80.00 /min Wed Feb 12 00:13 :11 EST 5 Body temperature 98.20 [degF] Wed Feb 12 00:1 3:11 EST 5 Respiratory rate 22.00 /min Wed Feb 12 00:1 3:11 EST 5 Pulse Oximetry 94.00 % Wed Feb 12 00:13 :11 EST 5 Body weight 192.20 [lb_av] Tue Feb 11 14:46 :58 EST 5 Systolic Blood Pressure 140.00 mm[Hg] Tue Feb 11 08:50:19 EST 2025 Diastolic Blood Pressure 56.00 mm[Hg] Tue Feb 11 08:50:19 EST 2024 Heart Rate 75.00 /min Wed Feb 08:50 :19 EST 2024 Body temperature 98.10 [degF] Wed Feb 08:5 0:19 EST 2024 Respiratory rate 20.00 /min Wed Feb 08:5 0:19 EST 2024 Pulse Oximetry 93.00 % Wedb 08:50 :19 EST 5 Systolic Blood Pressure 129.00 mm[Hg] Mon Feb 10 23:39:10 EST 5 Diastolic Blood Pressure 66.00 mm[Hg] Mon Feb 10 23:39:10 EST 2024 Heart Rate 77.00 /min Mon Feb 10 23:39 :10 EST 2024 Body temperature 98.20 [degF] Mon Feb 10 23:3 9:10 EST 2024 Respiratory rate 18.00 /min Mon Feb 10 23:3 9:10 EST 2024 Pulse Oximetry 95.00 % Mon Feb 10 23:39 :10 EST 2024 Body weight 195.00 [lb_av] Mon Feb 10 12:31 :56 EST 2024 Systolic Blood Pressure 144.00 mm[Hg] Mon Feb 10 10:14:18 EST 5 Diastolic Blood Pressure 70.00 mm[Hg] Mon Feb 10 10:14:18 EST 2024 Heart Rate 83.00 /min Mon Feb 10 10:14 :18 EST 2024 Body temperature 98.30 [degF] Mon Feb 10 10:1 4:18 EST 2024 Respiratory rate 18.00 /min Mon Feb 10 10:1 4:18 EST 2024 Pulse Oximetry 95.00 % Mon Feb 10 10:14 :18 EST 5 Systolic Blood Pressure 131.00 mm[Hg] Sun Feb 20:44:43 EST 5 Diastolic Blood Pressure 52.00 mm[Hg] Sun Feb 20:44:43 EST 2024 Heart Rate 73.00 /min Sun Feb 20:44 :43 EST 2024 Body temperature 98.00 [degF] Sun Feb 20:4 4:43 EST 5 Respiratory rate 18.00 /min Sun Feb 20:4 4:43 EST 2024 Pulse Oximetry 95.00 % Sun Feb 20:44 :43 EST 2024 Body weight 198.10 [lb_av] Sun Feb 17:22 :07 EST 5 Systolic Blood Pressure 130.00 mm[Hg] Sun Feb 15:00:05 EST 2024 Diastolic Blood Pressure 55.00 mm[Hg] Sun Feb 15:00:05 EST 2024 Heart Rate 84.00 /min Sun Feb 15:00 :05 EST 5 Body temperature 97.10 [degF] Sun Feb 15:0 0:05 EST 2024 Respiratory rate 20.00 /min Sun Feb 15:0 0:05 EST 5 Pulse Oximetry 96.00 % Sun Feb 15:00 :05 EST 5 Systolic Blood Pressure 128.00 mm[Hg] Sun Feb 00:08:28 EST 5 Diastolic Blood Pressure 61.00 mm[Hg] Sun Feb 00:08:28 EST 5 Heart Rate 86.00 /min Sun Feb 00:08 :28 EST 5 Body temperature 97.70 [degF] Sun Feb 00:0 8:28 EST 5 Respiratory rate 20.00 /min Sun Feb 00:0 8:28 EST 5 Pulse Oximetry 95.00 % Sun Feb 00:08 :28 EST 5 Body weight 198.60 [lb_av] Sat Feb 08 14:12 :45 EST 2025 Systolic Blood Pressure 121.00 mm[Hg] Sat Feb 08 10:45:04 EST 5 Diastolic Blood Pressure 57.00 mm[Hg] Sat Feb 08 10:45:04 EST 2025 Heart Rate 71.00 /min Sat Feb 08 10:45 :04 EST 2025 Body temperature 98.00 [degF] Sat Feb 08 10:4 5:04 EST 2025 Respiratory rate 18.00 /min Sat Feb 08 10:4 5:04 EST 2025 Pulse Oximetry 92.00 % Sat Feb 08 10:45 :04 EST 5 Systolic Blood Pressure 143.00 mm[Hg] Wed Feb 21:58:37 EST 5 Diastolic Blood Pressure 70.00 mm[Hg] Wed Feb 21:58:37 EST 2025 Heart Rate 76.00 /min Wed Feb 21:58 :37 EST 2025 Body temperature 97.50 [degF] Wed Feb 21:5 8:37 EST 2025 Respiratory rate 20.00 /min Wed Fe 21:5 8:37 EST 2025 Pulse Oximetry 93.00 % WedAug 11 21:58 :37 EST 2024 Body weight 197.80 [lb_av] WedAug 11 15:09 :32 EST 5 Systolic Blood Pressure 136.00 mm[Hg] WedAug 11 12:22:14 EST 5 Diastolic Blood Pressure 60.00 mm[Hg] WedAug 11 12:22:14 EST 5 Heart Rate 81.00 /min WedAug 11 12:22 :14 EST 5 Body temperature 98.00 [degF] WedAug 11 12:2 2:14 EST 5 Respiratory rate 18.00 /min WedAug 11 12:2 2:14 EST 2024 Pulse Oximetry 92.00 % WedAug 11 12:22 :14 EST 5 Systolic Blood Pressure 137.00 mm[Hg] WedAug 11 00:13:13 EST 5 Diastolic Blood Pressure 57.00 mm[Hg] WedAug 11 00:13:13 EST 5 Heart Rate 70.00 /min WedAug 11 00:13 :13 EST 5 Body temperature 97.70 [degF] WedAug 11 00:1 3:13 EST 5 Respiratory rate 16.00 /min WedAug 11 00:1 3:13 EST 2024 Pulse Oximetry 93.00 % WedAug 11 00:13 :13 EST 2024 Systolic Blood Pressure 133.00 mm[Hg] WedAug 10 09:59:32 EST 5 Diastolic Blood Pressure 51.00 mm[Hg] WedAug 10 09:59:32 EST 2024 Body weight 198.40 [lb_av] WedAug 10 09:59 :32 EST 5 Heart Rate 69.00 /min WedAug 10 09:59 :32 EST 5 Body temperature 97.80 [degF] WedAug 10 09:5 9:32 EST 5 Respiratory rate 18.00 /min WedAug 10 09:5 9:32 EST 2024 Pulse Oximetry 91.00 % WedAug 10 09:59 :32 EST 5 Systolic Blood Pressure 144.00 mm[Hg] WedAug 09 22:59:15 EST 5 Diastolic Blood Pressure 59.00 mm[Hg] Wed Aug 09 22:59:15 EST 5 Heart Rate 67.00 /min Wed Feb 05 22:59 :15 EST 2024 Body temperature 97.80 [degF] Wed Feb 05 22:5 9:15 EST 2024 Respiratory rate 18.00 /min Wed Feb 22:5 9:15 EST 2024 Pulse Oximetry 93.00 % Wedb 05 22:59 :15 EST 2024 Body weight 199.80 [lb_av] Wed Feb 05 09:39 :21 EST 5 Systolic Blood Pressure 131.00 mm[Hg] Wed Feb 05 08:30:21 EST 5 Diastolic Blood Pressure 58.00 mm[Hg] Wed Feb 05 08:30:21 EST 2024 Heart Rate 75.00 /min Wed Feb 05 08:30 :21 EST 2024 Body temperature 97.60 [degF] Wed Feb 05 08:3 0:21 EST 2024 Respiratory rate 18.00 /min Wed Feb 05 08:3 0:21 EST 2024 Pulse Oximetry 92.00 % Wedb 05 08:30 :21 EST 2024 Systolic Blood Pressure 134.00 mm[Hg] Wed Feb 04 19:51:51 EST 2024 Diastolic Blood Pressure 58.00 mm[Hg] Wed Feb 04 19:51:51 EST 2024 Heart Rate 72.00 /min Wedb 04 19:51 :51 2024 Body temperature 98.20 [degF] Wedb 04 19:5 1:51 EST 2024 Respiratory rate 18.00 /min Wedb 04 19:5 1:51 2024 Pulse Oximetry 92.00 % Wed 04 19:51 :51 2024 Body weight 202.40 [lb_av] Wedb 04 13:33 :22 EST 2024 Systolic Blood Pressure 132.00 mm[Hg] Wed Feb 04 11:47:39 EST 5 Diastolic Blood Pressure 54.00 mm[Hg] Wed Feb 04 11:47:39 EST 2024 Heart Rate 73.00 /min Wed Feb 04 11:47 :39 EST 2024 Body temperature 97.70 [degF] Wed Feb 04 11:4 7:39 EST 5 Respiratory rate 20.00 /min Wed Feb 04 11:4 7:39 EST 2024 Pulse Oximetry 95.00 % Wedb 04 11:47 :39 EST 2025 Systolic Blood Pressure 140.00 mm[Hg] WedAug 08 03:24:55 EST 2024 Diastolic Blood Pressure 53.00 mm[Hg] WedAug 08 03:24:55 EST 2024 Heart Rate 73.00 /min WedAug 08 03:24 :55 EST 2024 Body temperature 98.50 [degF] WedAug 08 03:2 4:55 EST 5 Respiratory rate 18.00 /min WedAug 08 03:2 4:55 EST 2024 Pulse Oximetry 92.00 % WedAug 08 03:24 :55 EST 2024 Body weight 202.60 [lb_av] WedAug 07 14:14 :10 EST 2024 Body Height 66.00 [in_i] WedAug 07 12:01 :05 EST 2024 Systolic Blood Pressure 125.00 mm[Hg] WedAug 07 09:48:14 EST 5 Diastolic Blood Pressure 59.00 mm[Hg] WedAug 07 09:48:14 EST 2024 Heart Rate 71.00 /min WedAug 07 09:48 :14 EST 2024 Body temperature 97.70 [degF] WedAug 07 09:4 8:14 EST 5 Respiratory rate 18.00 /min Wedb 09:4 8:14 EST 2024 Pulse Oximetry 93.00 % WedAug 07 09:48 :14 EST 2024 Systolic Blood Pressure 138.00 mm[Hg] WedAug 07 01:10:54 EST 5 Diastolic Blood Pressure 61.00 mm[Hg] WedAug 07 01:10:54 EST 2024 Heart Rate 62.00 /min WedAug 07 01:10 :54 EST 2024 Body temperature 97.80 [degF] WedAug 07 01:1 0:54 EST 5 Respiratory rate 18.00 /min WedAug 07 01:1 0:54 EST 2024 Pulse Oximetry 93.00 % WedAug 07 01:10 :54 EST 2024 Body weight 200.60 [lb_av] WedAug 06 08:49 :14 EST 2024 Systolic Blood Pressure 132.00 mm[Hg] Wedb 08:49:07 EST 2024 Diastolic Blood Pressure 63.00 mm[Hg] Wedb 08:49:07 EST 2024 Heart Rate 66.00 /min WedAug 06 08:49 :07 EST 2024 Body temperature 97.60 [degF] [place] Aug 06 08:4 9:07 EST 2024 Respiratory rate 18.00 /min [place] Aug 06 08:4 9:07 EST 2024 Pulse Oximetry 93.00 % [place] Aug 06 08:49 :07 EST 2024 Systolic Blood Pressure 127.00 mm[Hg] [place] Aug 06 00:52:34 EST 2024 Diastolic Blood Pressure 62.00 mm[Hg] [place] Aug 06 00:52:34 EST 2024 Heart Rate 69.00 /min [place] Aug 06 00:52 :34 EST 2024 Body temperature 98.20 [degF] [place] Aug 06 00:5 2:34 EST 2024 Respiratory rate 20.00 /min [place] Aug 06 00:5 2:34 EST 2024 Pulse Oximetry 93.00 % [place] Aug 06 00:52 :34 EST 2024 Systolic Blood Pressure 123.00 mm[Hg] [facility] Aug 05 11:28:00 EST 2024 Diastolic Blood Pressure 53.00 mm[Hg] [facility] Aug 05 11:28:00 EST 2024 Heart Rate 68.00 /min [facility] Aug 05 11:28 :00 EST 2024 Body temperature 97.40 [degF] [facility] Aug 05 11:2 8:00 EST 2024 Respiratory rate 18.00 /min [facility] Aug 05 11:2 8:00 EST 2024 Pulse Oximetry 92.00 % [facility] Aug 05 11:28 :00 EST 2024 Systolic Blood Pressure 120.00 mm[Hg] [facility] November 26 09:29:30 EDT 2023 Diastolic Blood Pressure [...] EDT 2023 Respiratory rate 98.00 /min WedNovember 24 23:4 8:47 EDT 2023 Pulse Oximetry 98.00 % [...] 98.60 [degF] WedNovember 22 09:1 2:40 EDT 2024 Respiratory rate 18.00 /min WedNovember 22 09:1 [...] 2023 Respiratory rate 20.00 /min WedNovember 13 21:3 9:22 EDT 2023 Pulse Oximetry 97.00 % [...] Pressure 143.00 mm[Hg] WedNovember 07 10:28:13 EDT 2024 Diastolic Blood Pressure 72.00 mm[Hg] WedNovember 07 [...] 2023 Systolic Blood Pressure 148.00 mm[Hg] WedNovember 05 22:01:39 EDT 2023 Diastolic Blood Pressure [...] WedNovember 02 00:55 :00 EDT 2023 Body temperature 98.50 [degF] WedNovember 02 00:5 5:00 EDT 2023 Respiratory rate 16.00 /min WedNovember 02 00:5 5:00 EDT 2023 Pulse Oximetry 95.00 % WedNovember 02 00:55 :00 EDT 2023 Body Height 69.00 [in_i] WedNovember 02 00:55 :00 EDT 2023 Reason for Referral
--- OUTSIDE RECORDS SUMMARY | 2024-10-11 08:29 | XMS_ITS | Encounter Summary ---
Author Organization [facility] Address [address] [place] [address] Phone Care Team Providers Care Autistic Teacher Name Role Phone Dg Huerta MD Primary Care Provider [phone] Xavier Frederick MD Unavailable [phone] Encounter Details Date Type Department Care Team (Late st Contact Info) Description 10/09/2024 Telephone [facility] Cardiology [id number] [facility] 8th [place] [address] [place] [address] Jacinto Reilly Social History Tobacco Use Types Packs/Day Years [...] on file Legal Sex Female 12:17 AM E [employer]ORDIN[employer] Gender Identity Not on file Sexual Orientation Not on file documented as of this encounter Miscellaneous Notes * Telephone Encounter - Lul Santosieskurt - 10/10/2024 9:20 AM CDT S/w Kandy and pt has been rsch for her apt/ did not need a new letter * Telephone Encounter - Jacinto Reilly - 10/09/2024 4:26 PM CDT Valve Kandy with [facility] called to reschedule patient new Valve appt. It was scheduled for 10/10/24. I went ahead and cancelled the office visits but the TAVR CT needs to be cancelled. Please call Kandy at [phone]. documented in this encounter Plan of Treatment [...] orders or changes made to medication regimen. 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 Minimize further functional decline 2. Maximize quality of life 3. Control pain Strategies: - Activity/exercise program recommendation - Conservative stepwise pain medicine strategy with multi-disciplinary approach - Recommend healthy lifestyle strategies and compensatory methods as needed documented as of this encounter Visit Diagnoses Not on filedocumented in this encounter Care Teams Autistic Teacher Relationship Specialty Start Date End Date Deanna, Dg, MD PCP - General 10/02/16 Xavier Frederick MD [address] [place] [address] Referring Physician Cardiology 10/02/24 documented as of this encounter
--- OUTSIDE RECORDS SUMMARY | 2024-10-11 08:29 | XMS_ITS | Data Portability ---
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 Labs on 08/10 -- BMP and Mag. Nursing to request home medication list from PCP and fax to our office for review. Waiting on more records from [facility]. Not available 08/08/2024 09:49:40 08/09/2024 08/09/2024 increase mtx to 7.5 mg weekly dulcolax suppository 10 mg DE daily prn labs are ordered for AM [email or web address] Not available 08/14/2024 05:09:59 08/11/2024 08/11/2024 Monitor for need for Metolazone burst. Not available 08/14/2024 09:59:39 08/15/2024 08/15/2024 Change Dicyclomine to PRN. Labs in AM. [email or web address] Not available 08/15/2024 15:11:10 08/18/2024 08/18/2024 Pt will d/c to [facility] on 08/21 with [facility]. Recommend f/u with Dr. Xavier Frederick (cards) [...] By Organization Details Last Modified Time 08/07/2024 [id number] I spent {{ 60#}} minutes providing care to the patient today. More than 50% of that time was spent in discussing the expected course of the disease, discussing prognosis, coordinating care and counseling of the patient/family. Not available 08/08/2024 09:48:57 08/09/2024 [id number] I spent {{ >50#} } minutes providing [...] DNR [email or web address] Not available 08/14/2024 00:13:55 08/11/2024 [id number] I spent {{ 34#}} minutes providing care to the patient today. More than 50% of that time was spent in discussing the expected course of the disease, discussing prognosis, coordinating care and counseling of the patient/family. Not available 08/14/2024 10:01:44 08/15/2024 [id number] I spent {{ 36#}} minutes providing care to the patient today. More than 50% of that time was spent in discussing the expected course of the disease, discussing prognosis, coordinating care and counseling of the patient/family. [email or web address] Not available 08/15/2024 15:11:35 08/18/2024 [id number] I spent {{ 40#}} minutes providing care [...] unila teral No observ ation record ed. [email or web address] [address] [place], [address], 08/08/2024 21:14:11 08/15/19 25 08/15/2024 XR, abdom en, 1 view No observ ation record ed. [email or web address] [place] [address] [place], [address], 08/15/2024 17:00:53 Result Notes None recorded. Procedures Surgical History Date Name Laterality Status Provider Name and Address Organization Details Recorded Time 10/04/19 24 open reduction of fracture of ulna with internal [place] [address] [place], [address], [facility] 08/07/2024 19:39:07 10/04/19 24 arthroplasty of head of radius completed TARA Leger, [place], [address], [facility] 08/07/2024 19:39:32 Cholecystectomy [place] Kaycee Sen[place] [address], [place], [address], [facility] 08/07/2024 19:38:46 replacement of mitral valve completed Kaycee Sena, TARA [address] [facility], [place], [address], [facility] 08/07/2024 19:39:45 prosthetic arthroplasty of hip completed Kaycee Sena, TARA [address] [facility], [place], [address], [facility] 08/07/2024 19:40:00 ligation [place] [address] [address] [facility], [place], [address], [facility] 08/07/2024 19:40:08 Imaging Results Imaging Date Name Status [facility]Modified by [facility] Details LastModified Time 08/08/2024 XR, ribs, unilateral completed [email or web address] [employer] [facility] [address] [place], [address], 08/08/2024 21:14:11 08/15/2024 XR, abdomen, [address] , [place], [address], 08/15/2024 17:00:53 Procedure Notes None recorded. Medical Equipment None Reported. Allergies Allergen ID Allergen Name Allergen Category Reaction Reaction Severity Criticality Documentation Date Start Date Code Code System Note Provider Name and Address Organization Details Recorded Time 35072 nizatidin e medicatio n Not available Not available Not available 08/05/2024 32617 RxNorm Not Available Not Available Not Available [...] [degF] 18 /min 93 % 93 % 85469.8 1 g 32.7 kg/m2 167.64 cm 125 mm[Hg] 59 mm[Hg] [place] [address] [place], [address], [place] [facility] 5 14:46:21 Date Recorded Body height Heart rate Body temperature Respiratory rate Oxygen saturation Oxygen saturation in Arterial blood by Pulse oximetry Body mass index (BMI) Body weight Systolic blood pressure Diastolic blood pressure Provider Name and Address Organization Details Last Updated DateTime 5 167.64 cm 75 /min 97.6 [degF] 18 /min 92 % 92 % 32.2 kg/m2 37801.7 6 g 131 mm[Hg] 58 mm[Hg] [place] [address] [place], [address], [place] [facility] 5 08:07:21 Date Recorded Body height Heart rate Body temperature Respiratory rate Oxygen saturation Oxygen saturation in Arterial blood by Pulse oximetry Body mass index (BMI) Body weight Systolic blood pressure Diastolic blood pressure Provider Name and Address Organization Details Last Updated DateTime 5 167.64 cm 81 /min 98 [degF] 18 /min 92 % 92 % 32 kg/m2 38860.7 3 g 136 mm[Hg] 60 mm[Hg] [place] [address] [place], [address], [place] [employer] [facility] 5 14:53:13 Date Recorded Body height Heart rate Respiratory rate Oxygen saturation Oxygen saturation in Arterial blood by Pulse oximetry Body mass index (BMI) Body weight Body temperature Systolic blood pressure Diastolic blood pressure Provider Name and Address Organization Details Last Updated DateTime 5 167.64 cm 75 /min 20 /min 93 % 93 % 31.5 kg/m2 88655.5 1 g 98.1 [degF] 140 mm[Hg] 56 mm[Hg] [place] [address] [place], [address], [place] [facility] 5 10:53:09 Date Recorded Body height Heart rate Body temperature Respiratory rate Oxygen saturation Oxygen saturation in Arterial blood by Pulse oximetry Body mass index (BMI) Body weight Systolic blood pressure Diastolic blood pressure Provider Name and Address Organization Details Last Updated DateTime 167.64 cm 79 /min 97.4 [degF] 20 /min 96 % 96 % 30.9 kg/m2 54287.5 8 g 132 mm[Hg] 59 mm[Hg] [place] [address] [place], [address], [facility] 18:32:13 Social History Question Answer Notes LastModified by Organizat ion Details LastModified Time Tobacco Smoking Status [place] [address] [place], [address], [facility] 08/07/2024 19:21:23 What Is Your Level Of Alcohol Consumption? None Information not available 08/14/2024 What Is Your Code Status? DNR [email or web address] Information not available 08/05/2024 What Is Your [...] History Condition Response Osteoarthritis / DJD Y Valvular heart disease Y Pulmonary Hypertension Y GERD / Reflux Y Coronary Artery Disease (CAD) Y Chronic Kidney Disease (CKD) Y Neuropathy Y Rheumatoid Arthritis Y Psychiatric -- Depression Y Fibromyalgia Y Pulmonary Fibrosis Y COPD Y Gynecological HistoryNo gynecological history recorded. Obstetrics History GPAL:G 0 P 0 0 0 0 Past Encounters Encounter ID Performer Location Encounter Start Date Encounter Closed Date Diagnosis/Indication Diagnosis SNOMED-CT Code Diagnosis ICD10 Code Diagnosis Note [id number] Kaycee Sena NP [place] [address] [place] [address] 08/07/2024 09:27:34 08/26/2024 10:33:08 Acute on chronic diastolic heart failure 140663060 I50.33 Echo while inpatient noted normal LV [...] with Dr. Xavier Frederick (cards). Physical deconditioning 2665108986 9102 R68.89 Related to age, recent inpatient stay, and multiple comorbidit ies. Continue PT/OT and monitor progress. Goal is for pt to be placed in apartment at this facility. Continue PRN APAP for pain. No DVT prophylaxi s -- pt is ambulatory . History of mitral valve prosthesis 5507373750 9109 Z95.2 SEE ABOVE... Coronary arteriosclerosis 21091867 I25.10 No recent reports of chest pain. Not present on baby ASA, BB, or statin.Pt will need f/u with Dr. Xavier Frederick (cards). Chronic ob structive pulmonary disease 75035126 J44.9 Not on routine inhalers. Monitor for need.Robe nue PRN Ventolin.F ollowed by pulmonolog y at [facility] as OP, need to confirm name. Fibrosis of lung 0746890 1 J84.10 SEE ABOVE... Severe pul monary hypertension 756242816 I27.20 SEE ABOVE... Rheumatoid arthritis 698 [address]371 M06.9 Historical ly followed by Dr. Khan [...] with rheum Dr. Khan as OP. Fibromyalgia 702612487 M 79.7 Stable. Continue PRN APAP. Idiopathic peripheral neuropathy 91261538 G60.9 Stable. Continue PRN APAP. Spinal stenosis 57387027 M48.00 Stable. Continue PRN APAP. Major depr essive disorder 607274582 F32.9 Stable at present. Continue Duloxetine . Gastroesop hageal reflux disease without esophagitis 348774215 K21.9 Without concerns at present. Continue Omeprazole . Anemia 144905773 D64.9 Recent Hgb in 10s. Continue Folate. Irritable bowel syndrome characterized by constipation 282942593 K58.1 Constipate d at present. Continue Dicyclomin e for now. Continue Miralax and PRN cathartics . Would give suppositor y if no BM by tonight.Wolf mary closely. Allergic c ontact dermatitis 979518122 L23.9 Stable at present. Continue Cetirizine & Hydrocorti sone cream.D/C Hydroxyzin e due to non-use.Wolf mary for ability to change Cetirizine to PRN. Not for resuscitation 30 4419288 Z66 Pt is a DNR. Confirmed today. [id number] Lesly Castillo, DO [address] [address] 08/09/2024 15:34:28 08/26/2024 10:35:44 Acute on chronic diastolic heart failure 176911795 I50.33 Echo while inpatient noted normal LV [...] to up to 100 mg while at [facility] but she was ultimately discharged back on [...] Xavier Frederick (cards). Severe pul monary hypertension 736927511 I27.20 SEE ABOVE... History of mitral valve prosthesis 2563568585 9109 Z95.2 SEE ABOVE... Chronic ob structive pulmonary disease 89081166 J44.9 Not on routine inhalers. Monitor for need - Stiolto is on outpatient medication list but patient was not routinely using prior to recent hospitaliz ationConti nue PRN Ventolin.P reviously followed by pulmonolog y at [facility], Dr. Honey Lewis, but not seen in nearly 2 years Fibrosis of lung 9649840 1 J84.10 SEE ABOVE... Coronary arteriosclerosis 99428580 I25.10 No recent reports of chest pain. Not present on baby ASA, BB, or statin.Pt will need f/u with Dr. Xavier Frederick ([facility]). Rheumatoid arthritis 698 [address] Khan (rheumatol ogy).Incre ase MTX back to usual weekly doseShe can f/u once discharged from rehab to discuss resumption of monthly orencia infusionsC ontinue PRN APAP for pain and monitor closely. Fibromyalgia 238674316 M 79.7 Stable. Continue PRN APAP. Spinal stenosis 23442162 M48.00 Stable. Continue PRN APAP. Idiopathic peripheral neuropathy 74499267 G60.9 Stable. Continue PRN APAP. Irritable bowel syndrome characterized by constipation 123849921 K58.1 Constipate d at present. Continue Dicyclomin e and miralaxdul colax suppositor y x 1 - not available at facility this evening so MOM being given and suppositor y to be given when available - other meds available per standing orders as well Gastroesop hageal reflux disease without esophagitis 233565341 K21.9 Without concerns at present. Continue Omeprazole . Anemia 228538335 D64.9 Recent Hgb in 10s. Continue Folate and monitor CBC Major depr essive disorder 768554071 F32.9 Stable at present. Continue Duloxetine . Allergic c ontact dermatitis 442902001 L23.9 Stable at present. Continue Cetirizine & Hydrocorti sone cream.Alondra ferrara for ability to change Cetirizine to PRN. Physical deconditioning 2558420518 9102 R68.89 Related to age, recent inpatient stay, and multiple comorbidit ies.Contin ue PT/OT and monitor progress. [facility] this facilityCo ntinue PRN APAP for pain.No DVT prophylaxi s -- pt is ambulatory . [id number] Kaycee Sena NP [address] [place] [address] 08/11/2024 10:07:43 08/26/2024 10:33:44 Acute on chronic diastolic heart failure 148237753 I50.33 Echo while inpatient noted normal LV [...] to up to 100 mg while at [facility] but she was ultimately discharged back on [...] Xavier Frederick (cards). Severe pul monary hypertension 288393520 I27.20 SEE ABOVE... History of mitral valve prosthesis 0934056089 9109 Z95.2 SEE ABOVE... Chronic ob structive pulmonary disease 12112690 J44.9 Not on routine inhalers. Monitor for need - Stiolto is on outpatient medication list but patient was not routinely using prior to recent hospitaliz ation.Cont inue PRN Ventolin.P reviously followed by pulmonolog y at [facility], Dr. Honey Lewis, but not seen in nearly 2 years. Fibrosis of lung 5250015 1 J84.10 SEE ABOVE... Coronary arteriosclerosis 37821903 I25.10 No recent reports of chest pain. Not present on baby ASA, BB, or statin.Pt will need f/u with Dr. Xavier Frederick (cards). Rheumatoid arthritis 698 [address] Khan (rheumatol ogy).Incre ased MTX back to usual weekly dose.She does receive monthly Orencia infusions at [facility] but she missed July' so her last infusion was in June 2024. She can f/u once discharged from rehab to discuss resumption of infusions. Continue PRN APAP for pain and monitor closely. Fibromyalgia 977910502 M 79.7 Stable. Continue PRN APAP. Spinal stenosis 34586011 M48.00 Stable. Continue PRN APAP. Idiopathic peripheral neuropathy 55192339 G60.9 Stable. Continue PRN APAP. Irritable bowel syndrome characterized by constipation 488315829 K58.1 Constipate d at present. Continue Dicyclomin e, Lactulose, Miralax, and PRN cathartics per standing orders. Gastroesop hageal reflux disease without esophagitis 032863409 K21.9 Without concerns at present. Continue Omeprazole . Anemia 067954567 D64.9 Recent Hgb in 10s. Continue Folate and monitor CBC. Major depr essive disorder 779390832 F32.9 Stable at present. Continue Duloxetine . Allergic c ontact dermatitis 180296861 L23.9 Stable at present. Continue Cetirizine & Hydrocorti sone cream.Alondra tor for ability to change Cetirizine to PRN. Physical deconditioning 7743431635 9102 R68.89 Related to age, recent inpatient stay, and multiple comorbidit ies.Contin ue PT/OT and monitor progress. Patient plans to d/c to [facility] at this facility.C ontinue PRN APAP for pain.No DVT prophylaxi s -- pt is ambulatory . [id number] Kaycee Sena NP [address] [place] [address] 08/15/2024 10:20:25 08/26/2024 10:34:21 Acute on chronic diastolic heart failure 913610856 I50.33 Echo while inpatient noted normal LV [...] to up to 100 mg while at [facility] but she was ultimately discharged back on [...] Xavier Frederick (cards). Severe pul monary hypertension 256639107 I27.20 SEE ABOVE... History of mitral valve prosthesis 7469116808 9109 Z95.2 SEE ABOVE... Chronic ob structive pulmonary disease 43087211 J44.9 Not on routine inhalers. Monitor for need - Stiolto is on outpatient medication list but patient was not routinely using prior to recent hospitaliz ation.Cont inue PRN Ventolin.P reviously followed by pulmonolog y at [facility], Dr. Honey Lewis, but not seen in nearly 2 years. Fibrosis of lung 8190935 1 J84.10 SEE ABOVE... Coronary arteriosclerosis 25467955 I25.10 No recent reports of chest pain. Not present on baby ASA, BB, or statin.Pt will need f/u with Dr. Xavier Frederick (cards). Rheumatoid arthritis 698 [address] Khan (rheumatol og).Incre ased MTX back to usual weekly dose.She does receive monthly Orencia infusions at [facility] but she missed July's so her last infusion was in June 2024. She can f/u once discharged from rehab to discuss resumption of infusions. Continue PRN APAP for pain and monitor closely. Fibromyalgia 093418854 M 79.7 Stable. Continue PRN APAP. Spinal stenosis 67937927 M48.00 Stable. Continue PRN APAP. Idiopathic peripheral neuropathy 58740082 G60.9 Stable. Continue PRN APAP. Irritable bowel syndrome characterized by constipation 163718595 K58.1 Constipate d at present. Continue Lactulose, Miralax, and PRN cathartics per standing orders.Michelle nge Dicyclomin e to PRN -- hospital mistakenly had this as daily OP medication . Gastroesop hageal reflux disease without esophagitis 775881992 K21.9 Without concerns at present. Continue Omeprazole . Anemia 365644372 D64.9 Recent Hgb in 10s. Continue Folate and monitor CBC. Major depr essive disorder 649443452 F32.9 Stable at present. Continue Duloxetine . Allergic c ontact dermatitis 742476368 L23.9 Stable at present. Continue Cetirizine & Hydrocorti sone cream.Alondra ferrara for ability to change Cetirizine to PRN. Physical deconditioning 8740285718 9102 R68.89 Related to age, recent inpatient stay, and multiple comorbidit ies.Contin ue PT/OT and monitor progress. Patient plans to d/c to [facility] at this facility.C ontinue PRN APAP for pain.No DVT prophylaxi s -- pt is ambulatory . [id number] Kaycee Sena NP [facility] [address] [place] [address] 08/18/2024 16:01:28 08/26/2024 10:34:59 Acute on chronic diastolic heart failure 168427076 I50.33 Echo while inpatient noted normal LV [...] to up to 100 mg while at [facility] but she was ultimately discharged back on [...] Xavier Frederick (cards). Severe pul monary hypertension 458208341 I27.20 SEE ABOVE... History of mitral valve prosthesis 8600258130 9109 Z95.2 SEE ABOVE... Chronic ob structive pulmonary disease 66143014 J44.9 Not on routine inhalers. Monitor for need - Stiolto is on outpatient medication list but patient was not routinely using prior to recent hospitaliz ation.Cont inue PRN Ventolin.P reviously followed by pulmonolog y at [facility], Dr. Honey Lewis, but not seen in nearly 2 years. Fibrosis of lung 8729742 1 J84.10 SEE ABOVE... Coronary arteriosclerosis 38364011 I25.10 No recent reports of chest pain. Not present on baby ASA, BB, or statin.Pt will need f/u with Dr. Xavier Frederick (cards). Rheumatoid arthritis 698 [address] Khan (rheumatol ogy).Incre ased MTX back to usual weekly dose.She does receive monthly Orencia infusions at [facility] but she missed July's so her last infusion was in June 2024. She can f/u once discharged from rehab to discuss resumption of infusions. Continue PRN APAP for pain and monitor closely. Fibromyalgia 052615773 M 79.7 Stable. Continue PRN APAP. Spinal stenosis 63384871 M48.00 Stable. Continue PRN APAP. Idiopathic peripheral neuropathy 91708267 G60.9 Stable. Continue PRN APAP. Irritable bowel syndrome characterized by constipation 886784665 K58.1 Improved. Continue Lactulose, Miralax, and PRN cathartics per standing orders.Michelle nged Dicyclomin e to PRN -- hospital mistakenly had this as daily OP medication . Gastroesop hageal reflux disease without esophagitis 825840607 K21.9 Without concerns at present. Continue Omeprazole . Anemia 836483658 D64.9 Recent Hgb in 10s. Continue Folate and monitor CBC. Major depr essive disorder 983964339 F32.9 Stable at present. Continue Duloxetine . Allergic c ontact dermatitis 703948077 L23.9 Stable at present. Continue Cetirizine & [...] Harris Member ID Guarantor Name 08/07/2024 1 [place] (MEDICARE[place] Ariadne Okeefe [id number] Ariadne Okeefe 08/07/2024 2 [facility] [employer] [address] Ariadne Okeefe [id number] Ariadne Okeefe 08/09/2024 1 [place] Ariadne Okeefe [id number] Ariadne Okeefe 08/09/2024 2 [facility] [employer] [address] Ariadne Okeefe [id number] Ariadne Okeefe 08/11/2024 1 [place] (MEDIC[place] Ariadne Okeefe [id number] Ariadne Okeefe 08/11/2024 2 [facility] [employer] [address] Ariadne Okeefe [id number] Ariadne Okeefe 08/15/2024 1 [place]MEDICARE[place] Ariadne Okeefe [id number] Ariadne Okeefe 08/15/2024 2 [facility] [employer] [address] Ariadne Okeefe [id number] Ariadne Okeefe 08/18/2024 1 [place]MEDICARE[place] Ariadne Okeefe [id number] Ariadne Okeefe 08/18/2024 2 [facility] [employer] [address] Ariadne Okeefe [id number] Ariadne Okeefe Notes Date Note Type Note Provider Name and Address Organization Details Recorded Time 08/07/2024 text/html 74-year-old cauc female with PMH of D. CHF, chronic loculated [R] pleural effusion, Mitral Valve Replacement, CAD, COPD, Lung Fibrosis, Severe Pulm HTN, Rheumatoid Arthritis, Fibromyalgia, Peripheral Neuropathy, Spinal Stenosis, MDD, GERD, and Anemia presenting for rehabilitation following hospitalization at [facility] from 07/17 to 07/21/24 for CHF exacerbation and weakness. She was kept at the facility in a swing bed from 07/21 to 08/05/24 for acute rehabilitation and has now transferred to [place] for further post-acute rehabilitation. Ariadne lives independently in a home, has been largely self-sufficient but does note that her in April 2024 and she has not been in good health since. She presented to [facility] with c/o SOB & weakness on 07/17. She was admitted for CHF exacerbation, diuresed with IV Lasix, and converted to Lasix 40 mg BID. Spironolactone was increased to 50 mg daily. She follows with Dr. Xavier Frederick (cards) at [facility], but has not been seen for > [...] years. She is followed by pulmonology at [facility] who is treating supportively with monitoring. She [...] them. Will instead contact her PCP at [facility] and request home medication list. [...] is son Magdiel Okeefe, who lives in [place]. She was in Apr 2024. Kaycee Sena, TARA [address] [facility], [place], [address], [place] [facility] 08/08/2024 09:49:44 08/09/2024 text/html 74-year-old cauc female with PMH of D. CHF, chronic loculated [R] pleural effusion, Mitral Valve Replacement, CAD, COPD, Lung Fibrosis, Severe Pulm HTN, Rheumatoid Arthritis, Fibromyalgia, Peripheral Neuropathy, Spinal Stenosis, MDD, GERD, and Anemia presenting for rehabilitation following hospitalization at [facility] from 07/17 to 07/21/24 for CHF exacerbation and weakness. She remained at the facility in a swing bed from 07/21 to 08/05/24 and has now transferred to [place] for further post-acute rehabilitation. Ariadne lives independently in a home, has been largely self-sufficient but does note that her in April 2024 and she has not been in good health since. She presented to [facility] with c/o SOB & weakness on 07/17. She was admitted for CHF exacerbation, diuresed with IV Lasix, and converted to Lasix 40 mg BID. Spironolactone dose remains 25 mg daily. She follows with Dr. Xavier Frederick (cards) at [facility], but has not been seen for > [...] years. She is followed by pulmonology at [facility] who is treating supportively with monitoring. She [...] is son Magdiel Okeefe, who lives in [place]. She was in Apr 2024. 08/09/24Ariadne is [...] applied daily. She will likely d[facility] when she completes skilled rehab - doesn't think she can return to living [place] in her home. [place] [address] [facility], [place], [address], [place] [facility] 08/14/2024 05:19:11 08/11/2024 text/html F/U [...] Orencia infusions via Dr. Khan (rheum) at [facility], but she missed July' so her last infusion was in June. VSS. Staff is without concerns today. Kaycee Sena, TARA [address] [facility], [place], [address], [facility] 08/14/2024 10:01:51 08/15/2024 text/html F/U [...] Orencia infusions via Dr. Khan (rheum) at [facility], but she missed July's so her last infusion was in June. VSS. Staff is without concerns today.---08/15/24Chelsi hicks is seated in a room in the [facility] area, a good historian, reports she [...] concerns today beyond aforementioned. Kaycee Sena, TARA [address] [place], [address], [place] [facility] 08/15/2024 15:11:47 08/18/2024 text/html 74-year-old cauc female with PMH of D. CHF, chronic loculated [R] pleural effusion, Mitral Valve Replacement, CAD, COPD, Lung Fibrosis, Severe Pulm HTN, Rheumatoid Arthritis, Fibromyalgia, Peripheral Neuropathy, Spinal Stenosis, MDD, GERD, and Anemia presenting for rehabilitation following hospitalization at [facility] from 07/17 to 07/21/24 for CHF exacerbation and weakness. She was kept at the facility in a swing bed from 07/21 to 08/05/24 for acute rehabilitation and has now transferred to [place] for further post-acute rehabilitation. Ariadne lives independently in a home, has been largely self-sufficient but does note that her in April 2024 and she has not been in good health since. She presented to [facility] with c/o SOB & weakness on 07/17. She was admitted for CHF exacerbation, diuresed with IV Lasix, and converted to Lasix 40 mg BID. Spironolactone was increased to 50 mg daily. She follows with Dr. Xavier Frederick (cards) at [facility], but has not been seen for > [...] years. She is followed by pulmonology at [facility] who is treating supportively with monitoring. She [...] them. Will instead contact her PCP at [facility] and request home medication list. [...] to Dr. Sanchez Coronado upon d/c to [facility].Hernan is son Magdiel Okeefe, who lives in [place]. She was in Apr 2024.---08/07/24Ariadne is doing [...] applied daily. She will likely d/c to [facility] when she completes skilled rehab - [...] Orencia infusions via Dr. Khan (rheum) at [facility], but she missed so her last infusion [...] small bowel movements. She will transfer to [facility] on 08/21 with [facility]. She is without concerns regarding this transfer. VSS. Staff is also without concerns today. Her weight continues to downtrend as desired, down 11 lbs since arrival to this facility. Kaycee Sena, TARA [address] [facility], [place], [address], [facility] 08/18/2024 18:40:47 OBGyn Episode No OBEpisode recorded.
--- OUTSIDE RECORDS SUMMARY | 2024-10-11 08:29 | XMS_ITS | Encounter Summary ---
Author Organization [facility] Address [address] [place] [address] Phone Care Team Providers Care Slate Roofer Name Role Phone Dg Huerta MD Primary Care Provider [phone] Xavier Frederick MD Unavailable [phone] Encounter Details Date Type Department Care Team (Latest Contact Info) Description 07/17/2024 Orders Only [facility] Scanning, Provider [...] on file Legal Sex Female 12:17 AM DEVELOPMENT PLANNER Gender Identity Not on file Sexual Orientation [...] Plan Chronic Care Management Worsening( 2:58 PM DEVELOPMENT PLANNER) No Viola Murphy, SARINA Note: Problem: Chronic Pain Goals: 1. Minimize further functional decline 2. Maximize quality of life 3. Control pain Strategies: - Activity/exercise program recommendation - Conservative stepwise pain medicine strategy with multi-disciplinary approach - Recommend healthy lifestyle strategies and compensatory methods as needed documented as of this encounter Procedures Procedure Name Priority Date/Time Associated Diagnosis Comments CARDIOLOGY DOCUMENT SCAN 07/17/2024 documented in this encounter Results * Cardiology Document Scan (07/17/2024) Anatomical Region Laterality Modality Other us Provider Scanning CV CARDIAC SERVICES PROCEDURES Edited Result - Final documented in this encounter Visit Diagnoses Not on filedocumented in this encounter Care Teams Slate Roofer Relationship Specialty Start Date End Date Dg Huerta MD PCP - General 10/02/16 Xavier Frederick MD [address] [place] [address] Referring Physician Cardiology 10/02/24 documented as of this encounter
--- OUTSIDE RECORDS SUMMARY | 2024-10-11 08:29 | XMS_ITS | Patient Health Record ---
Author Organization [facility]ae Address [address] [place] [address] Care Team Providers Care Relief Cook Name Role Phone Deanna FRANZ, Dg Primary Care Provider Unavaila keaton Watkins, Eleazar Unavailable [phone] June FRANZ, Eleazar Unavailable Unavailabl mecca Cancino, [place] Unavailable [phone] Godefroid, Carli Unavailable [phone] Allergies No Known Allergies Results Component Value Reference Range Notes CBC w auto diff Reviewed date:05/04/2024 01:33:40 PM Interpretation: Performing Lab:[facility] , [address] [facility] [address] Notes/Report: WBC 7.0 3.8-9.9 K/cumm Hgb 10.6 11.9-15.5 g/dL Hct 35.5 35.6-45.5 % Platelet Ct 174 150-400 K/cumm MPV 10.8 9.1-12.3 fL RBC 3.87 3.90-5.20 M/cumm MCV 91.7 81.3-96.4 fL MCH 27.4 27.1-33.3 pg MCHC 29.9 32.3-35.7 g/dL RDW CV 19.5 11.1-14.9 % RDW SD 64.3 35.7-48.1 fL NRBC Abs Auto 0.00 0.00-0.01 K/cumm Creatinine Reviewed date:05/04/2024 06:33:10 AM Interpretation: Performing Lab:[facility] , [address] [facility] [place] [address] Notes/Report: Creatinine 0.88 0.60-1.10 mg/dL Hep Func Panel Reviewed date:05/04/2024 06:32:49 AM Interpretation: Performing Lab:[facility] , [address] [place] [address]. [place] [address] Notes/Report: Total Bilirubin 0.9 0.1-1.2 mg/dL Bilirubin, Direct 0.4 0.1-0.3 mg/dL Plasma Total Protein 6.9 6.5-8.5 g/dL Albumin 4.3 3.5-5.0 g/dL Alkaline Phosphatase 46 40-130 Units/L ALT 14 7-45 Units/L AST 19 10-45 Units/L eGFR Reviewed date:09/15/2024 08:18:54 AM Interpretation: Performing Lab:[facility] , [address] [place] [address]. [place] [address] Notes/Report: eGFR 39 >=60 mL/min/1.73 m2 Interpretive [...] eGFR Reviewed date:05/04/2024 06:34:34 AM Interpretation: Performing Lab:[facility] , [address] [place] [address]. [place] [address] Notes/Report: eGFR 70 >=60 mL/min/1.73 m2 Interpretive [...] Current interpretive data was last reviewed 2021. Differential Automated Reviewed date:09/15/2024 08:18:48 AM Interpretation: Performing Lab:[facility] , [address] [place] [address]. [facility] [address] Notes/Report: Neut Abs 7.7 1.5-6.5 K/cumm ImmGran Abs 0.1 0.0-0.1 K/cumm Lymphocyte Abs 1.3 0.8-3.3 K/cumm Bedford Abs 0.8 0.2-0.8 K/cumm Eos Abs 0.2 [...] Interpretive Data was last revised on 2017. Bedford Pct 8.3 Interpretive Data Percent cell count [...] Interpretive Data was last revised on 2017. Differential Automated Reviewed date:05/04/2024 06:34:12 AM Interpretation: Performing Lab:[facility] , [address] [place] [address]. [facility] [address] Notes/Report: Neut Abs 5.4 1.5-6.5 K/cumm ImmGran Abs 0.0 0.0-0.1 K/cumm Lymphocyte Abs 0.8 0.8-3.3 K/cumm Bedford Abs 0.6 0.2-0.8 K/cumm Eos Abs 0.2 [...] Interpretive Data was last revised on 2017. [place] Pct 8.3 Interpretive Data Percent cell count [...] Interpretive Data was last revised on 2017. Hep Func Panel Reviewed date:09/15/2024 08:17:45 AM Interpretation: Performing Lab:[facility] , [address] [place] [address]. [facility] [address] Notes/Report: Total Bilirubin 1.0 0.1-1.2 mg/dL Bilirubin, Direct 0.5 0.1-0.3 mg/dL Plasma Total Protein 8.1 6.5-8.5 g/dL Albumin 4.2 3.5-5.0 g/dL Alkaline Phosphatase 58 40-130 Units/L ALT 12 7-45 Units/L AST 27 10-45 Units/L Creatinine Reviewed date:09/15/2024 08:33:23 AM Interpretation: Performing Lab:[facility] , [address] [place] [address]. [facility] [address] Notes/Report: Creatinine 1.43 0.60-1.10 mg/dL CBC w auto diff Reviewed date:09/15/2024 08:17:59 AM Interpretation: Performing Lab:[facility] , [address] [place] [address]. [facility] [address] Notes/Report: WBC 10.1 3.8-9.9 K/cumm Hgb 13.9 11.9-15.5 g/dL Hct 42.2 35.6-45.5 % Platelet Ct 287 150-400 K/cumm MPV 10.2 9.1-12.3 fL RBC 4.95 3.90-5.20 M/cumm MCV 85.3 81.3-96.4 fL MCH 28.1 27.1-33.3 pg MCHC 32.9 32.3-35.7 g/dL RDW CV 16.2 11.1-14.9 % RDW SD 48.8 35.7-48.1 fL NRBC Abs Auto 0.00 0.00-0.01 K/cumm Reason For Referral Reason -Physical Therapy Pr escription- -Treatment Increase Range of motion Improve Gait Myofascial Release/soft tisue treatments; [place]/ ASTYM/[place] Therapeutic Exercises Modalities prn Instruct in Home exercise program Diagnosis 1 Iliotibial band synd dax, right leg (M76.31) Referral Organization [facility] end[facility] Referring Provider First Name [place] Referring Provider Last Name Julita Referring Provider Speciality Physical Tonia anguiano Referred Provider Nam Saunders PT Referred Provider Specialty Physical The rapist Referral Priority Routine Reason Continue therapy act ivities, 5-6 visits. Progress to independent home exercise program Myofascial Release/soft tisue treatments; [place]/ ASTYM/[place] Lidex cream to area with ultrasound Diagnosis 1 Iliotibial band synd dax, right leg (M76.31) Referral Organization [facility] Referring Provider First Name Carli Referring Provider Last Name Simeon Referring Provider Speciality Nurse Jagruti cotto Referred Provider Nam Saunders PT Referred Provider Specialty Physical The rapist Referral Priority Routine Reason 09.08.2024 Orencia M edicare/Local 520-NO PA REQURIED per [id number] Diagnosis 1 Other specified rheu matoid arthritis, multiple sites (M06.89) Referral Organization [facility] Referring Provider First Name Eleazar Referring Provider Last Name June Referring Provider Speciality Rheumatolo gy Referred Organization [facility] end[facility] Referred Provider Eleazar Watkins Referred Address [address] [place] [address], Referred Provider Specialty Rheumatology Procedure 1 ABATACEPT INJECTION (J0129) Referral Priority Routine Medications Medication SIG (Take, Route, Frequency, Duration) Notes Start Date End Date Status Orencia 250 mg infuse 1,000 mg over 30 minute(s) by intravenous route every 4 weeks Intravenous [id number]-19 08/14/2020 Active Pantoprazole Sodium 40 MG take [...] W/U Status Risk Notes Problem Rheumatoid arthritis (98292258) Rheumatoid arthritis without rheumatoid factor, unspecified site (M06.00) Active confirmed Problem [id number] Other specified rheumatoid arthritis, multiple sites (M06.89) Active confirmed Problem Rheumatoid arthritis (86999383) Rheumatoid arthritis, unspecified (M06.9) Active confirmed Vital Signs Heart Rate 75 /min 09/14/2024 Temperature 97.2 degrees Fahrenheit 09/14/2024 Oximetry 98 % 05/03/2024 Height-cm 177.80 cm 09/14/2024 Blood pressure diastolic 67 mm Hg 09/14/2024 Weight-kg 72.12 kg 09/14/2024 Height 70 in 09/14/2024 Blood pressure systolic 112 mm Hg 09/14/2024 Weight 159.0 lbs 09/14/2024 BMI 22.81 kg/m2 09/14/2024 Encounters Encounter Location Date Provider Diagnosis [facility] [address] [place] [address] 10/20/2023 Eleazar DiValerio Other specified rheumatoid arthritis, multiple sites M06.89 and Rheumatoid arthritis without rheumatoid factor, unspecified site M06.00 [facility] [address] [place] [address] 11/17/2023 Eleazar DiValerio Other specified rheumatoid arthritis, multiple sites M06.89 and Rheumatoid arthritis without rheumatoid factor, unspecified site M06.00 [facility] [address] [place] [address] 12/16/2023 Eleazar DiValerio Other specified rheumatoid arthritis, multiple sites M06.89 [facility] [address] [place] [address] 01/13/2024 Eleazar DiValerio Other specified rheumatoid arthritis, multiple sites M06.89 [facility] [address] [place] [address] 03/01/2024 Eleazar DiValerio Other specified rheumatoid arthritis, multiple sites M06.89 [facility] [address] [place] [address] 05/03/2024 Eleazar DiValerio Other specified rheumatoid arthritis, multiple sites M06.89 [facility] [address] [place] [address] 05/03/2024 [place] Cancino Iliotibial band syndrome, right leg M76.31 [facility] [address] [place] [address] 05/25/2024 Carli Hendrix [facility] [address] [place] [address] 05/31/2024 Eleazar DiValerio Other specified rheumatoid arthritis, multiple sites M06.89 [facility] [address] [place] [address] 06/08/2024 Carli Adamsroid [facility] [address] [place] [address] 06/08/2024 Carli Hendrix Other specified rheumatoid arthritis, multiple sites M06.89 and Iliotibial band syndrome, right leg M76.31 [facility] [address] [place] [address] 09/14/2024 Eleazar Watkins Other specified rheumatoid arthritis, multiple sites M06.89 [facility] [address] [place] [address] 05/29/2024 [facility] [address] [place] [address] 07/14/2024 [facility] [address] [place] [address] 09/04/2024 [facility] [address] [place] [address] 09/14/2024 [facility] [address] [place] [address] 09/15/2024 Eleazar Mariahron Assessments Encounter Date Diagnosis [...] Name:Eleazar spaulding, 10/12/2024 02:00:00 PM, [address] [facility] [address], [place], [address], Provider Name:Eleazar spaulding, 11/09/2024 02:00:00 PM, [address], [place], [address], Provider Name:Eleazar Mcdaniel chelly, 12/07/2024 02:00:00 PM, [address], [place], [address], Insurance Providers Payer Name Payer Address Payer Phone Subscriber Number Group Number Insured Name Patient Relationship to Insured Coverage Start Date Coverage End Date Medicare [address] [address] [place] [address] [id number] Ariadne Okeefe Self - patient is the insured [address] [id number] Ariadne Okeefe Self - patient is the insured Medical (General) History Medical History History ICD Code Arthritis; Joint pain; Surgical History Surgery Date(Month/Year) Hip surgery; 2020-08-14 Wrist surgery; 2020-08-14 heart valve; 2020-08-14 Fallopian tube; 2020-08-14
--- OUTSIDE RECORDS SUMMARY | 2024-10-11 08:30 | XMS_ITS ---
Author Organization [facility] denae Address [address] [place] [address] Care Team Providers Care Transformer Molder Name Role Phone Deanna FRANZ, [facility] Primary Care Provider Eleazar Butcher [phone] Eelazar Watkins MD Unavailabl e Encounters Encounter Location Date Provider Diagnosis [facility] [address] [place] [address] 09/15/2024 Eleazar Watkins Plan Of Treatment Next Appt Details Provider Name:Eleazar Tonia spaulding, 10/12/2024 02:00:00 PM, [address], [place], [address], Provider Name:Eleazar Tonia spaulding, 11/09/2024 02:00:00 PM, [address], [place], [address], Provider Name:Eleazar Tonia spaulding, 12/07/2024 02:00:00 PM, [address], [place], [address], Progress Notes * Ariadne CAGE KDOB:1949 (74 yo F)Acc No.[id number]:09/15/2024 Patient: Isreal ALBERT Ariadne Simmons :1950 A ge:74 Y S ex:Female Address:[address], [place], [address] * true * Date: Generated for Gary gaines/Brandie/Cuate on: 0 10/11/2024 08:29 AM CDT
--- OUTSIDE RECORDS SUMMARY | 2024-10-11 08:30 | XMS_ITS | Clinical Summary ---
Author Organization [facility] Address [address] [place] [address] Care Team Providers Care High School Auto Repair Teacher Name Role Phone None, Provider MD Primary [...] Vaccine ( - 2023-2 5 season) 2024 RSV Immunization or 60+ Years (1 [...] patient's age to complete this topic Insurance LOCAL [facility] MEDICARE Care Teams [employer] Auto Rep[employer] Teacher Relationship Specialty Start Date End Date None, Provider, PCP - General 04/20/19
--- OUTSIDE RECORDS SUMMARY | 2024-10-11 08:30 | XMS_ITS | Encounter Summary ---
Author Organization [facility] Address [address] [place] [address] Care Team Providers Care Academic Counselor Name Role Phone Dg Huerta MD Primary Care Provider [phone] Xavier Frederick MD Unavailable [phone] Encounter Details Date Type Department Care Team (Late st Contact Info) Description 12/09/2022 Telephone [facility] [address] [facility] [address] [place] [address] Dg Huerta MD [address] [place] [address] Social History Tobacco Use Types Packs/Day Years Used Date Smoking Tobacco: Former Cigarettes 1 58.3 S tarted: 1966 Smokeless Tobacco: Never Alcohol Use Standard Drinks/Week Comments Yes 0 (1 standard drink = 0.6 oz pur e alcohol) occassional Comments No Sex and Gender Information Value Date Recorded Sex Assigned at Not on file Legal Sex Female 12:17 AM 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 [facility] Chronic Pain Care Plan Chronic Care Management Worsening( 2:58 PM AGRICULTURE LABORER) Viola Parkinson RN Note: Problem: Chronic Pain Goals: 1. Minimize further functional decline 2. Maximize quality of life 3. Control pain Strategies: - Activity/exercise program recommendation - Conservative stepwise pain medicine strategy with multi-disciplinary approach - Recommend healthy lifestyle strategies and compensatory methods as needed documented as of this encounter Visit Diagnoses Not on filedocumented in this encounter Care Teams Academic Counselor Relationship Specialty Start Date End Date Dg Huerta MD PCP - General 10/02/16 Xavier Frederick MD [address] [place] [address] Referring Physician Cardiology 10/02/24 documented as of this encounter
--- OUTSIDE RECORDS SUMMARY | 2024-10-11 08:30 | XMS_ITS | Encounter Summary ---
Author Organization [facility] Address [address] [place] [address] Phone Care Team Providers Care Soft Tile Setter Name Role Phone Dg Huerta MD Primary Care Provider [phone] Xavier Frederick MD Unavailable [phone] Encounter Details Date Type Department Care Team (Late st Contact Info) Description 09/19/2024 Telephone [facility] Cardiology [address] [facility] Advanced Medicine 8th [place] [address] [place] [address] Xavier Frederick MD [address] [facility] [address] [place] [address] Social History Tobacco Use Types Packs/Day [...] on file Legal Sex Female 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 [facility] Chronic Pain Care Plan Chronic Care Management Worsening( 2:58 PM FACILITY SALES AND ADMIN) No Viola Murphy RN Note: Problem: Chronic Pain Goals: 1. Minimize further functional decline 2. Maximize quality of life 3. Control pain Strategies: - Activity/exercise program recommendation - Conservative stepwise pain medicine strategy with multi-disciplinary approach - Recommend healthy lifestyle strategies and compensatory methods as needed documented as of this encounter Visit Diagnoses Not on filedocumented in this encounter Care Teams Soft Tile Setter Relationship Specialty Start Date End Date Dg Huerta MD PCP - General 10/02/16 Xavier Frederick MD [address] [place] [address] Referring Physician Cardiology 10/02/24 documented as of this encounter
--- OUTSIDE RECORDS SUMMARY | 2024-10-11 08:30 | XMS_ITS | Encounter Summary ---
Author Organization [facility] Address [address] [place] [address] Phone Care Team Providers Care Soft Iron Inspector Name Role Phone Dg Huerta MD Primary Care Provider [phone] Xavier Frederick MD Unavailable [phone] Encounter Details Date Type Department Care [...] on file Legal Sex Female 12:17 AM FUNDING COORDINATOR Gender Identity Not on file Sexual [...] today of echo. It was downloaded to [employer] on my desk if youwant to look [...] filedocumented in this encounter Care Teams Soft Iron Inspector Relationship Specialty Start Date End Date Dg Huerta MD PCP - General 10/02/16 Xavier Frederick MD [address] [place] [address] Referring Physician Cardiology 10/02/24 documented as of this encounter
--- OUTSIDE RECORDS SUMMARY | 2024-10-11 08:30 | XMS_ITS | Encounter Summary ---
Author Organization [facility] Address [address] [place] [address] Care Team Providers Care Tree Puller Name Role Phone Dg Huerta MD Primary Care Provider [phone] Xavier Frederick MD Unavailable [phone] Encounter Details Date Type Department Care Team (Late st Contact Info) Description 04/20/2023 Telephone [facility] Medicine [facility] [address] [facility] [address] [place] [address] Dg Huerta MD [address] [place] [address] Social History Tobacco Use Types Packs/Day Years Used Date Smoking Tobacco: Former Cigarettes 1 58.3 S tarted: 1967 Smokeless Tobacco: Never Alcohol Use Standard Drinks/Week Comments Yes 0 (1 standard drink = 0.6 oz pur e alcohol) occassional Comments No Sex and Gender Information Value Date Recorded Sex Assigned at Not on file 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 [facility] Chronic Pain Care Plan Chronic Care Management Worsening( 2:58 PM COTTON FARMER) Viola Parkinson RN Note: Problem: Chronic Pain Goals: 1. Minimize further functional decline 2. Maximize quality of life 3. Control pain Strategies: - Activity/exercise program recommendation - Conservative stepwise pain medicine strategy with multi-disciplinary approach - Recommend healthy lifestyle strategies and compensatory methods as needed documented as of this encounter Visit Diagnoses Not on filedocumented in this encounter Care Teams Tree Puller Relationship Specialty Start Date End Date Dg Huerta MD PCP - General 10/02/16 Xavier Frederick MD [address] [place] [address] Referring Physician Cardiology 10/02/24 documented as of this encounter
--- OUTSIDE RECORDS SUMMARY | 2024-10-11 08:30 | XMS_ITS ---
Author Organization [facility] denae Address [address] [facility] [facility] [place] [address] Care Team Providers Care Unclaimed Property Officer Name Role Phone Deanna FRANZ, [facility] Primary Care Provider Unavaila ble Eleazar Watkins Unavailable [phone] Eleazar Watkins MD Unavailable Unavailabl e Results Component Value Reference Range Notes CBC w auto diff Reviewed date:09/15/2024 08:17:59 AM Interpretation: Performing Lab:[facility] , [address] [place] [address]. [facility] [address] Notes/Report: WBC 10.1 3.8-9.9 K/cumm Hgb 13.9 11.9-15.5 g/dL Hct 42.2 35.6-45.5 % Platelet Ct 287 150-400 K/cumm MPV 10.2 9.1-12.3 fL RBC 4.95 3.90-5.20 M/cumm MCV 85.3 81.3-96.4 fL MCH 28.1 27.1-33.3 pg MCHC 32.9 32.3-35.7 g/dL RDW CV 16.2 11.1-14.9 % RDW SD 48.8 35.7-48.1 fL NRBC Abs Auto 0.00 0.00-0.01 K/cumm Creatinine Reviewed date:09/15/2024 08:33:23 AM Interpretation: Performing Lab:[facility] , [facility] [address] Notes/Report: Creatinine 1.43 0.60-1.10 mg/dL Hep Func Panel Reviewed date:09/15/2024 08:17:45 AM Interpretation: Performing Lab:[facility] , [address] [facility]. [facility] [address] Notes/Report: Total Bilirubin 1.0 0.1-1.2 mg/dL Bilirubin, [...] by intravenous route every 4 weeks Intravenous [id number]-91 08/14/2020 Active Pantoprazole Sodium 40 MG take [...] 09/14/2024 Encounters Encounter Location Date Provider Diagnosis [facility] [address] [place] [address] 09/14/2024 Eleazar Watkins Other specified rheumatoid arthritis, multiple sites M06.89 Assessments Encounter Date Diagnosis (ICD Code) Assessment Notes Treatment Notes Treatment Clinical Notes Section Notes 09/14/2024 Other specified rheumatoid arthritis, multiple sites (ICD-10 - M06.89) Plan Of Treatment Next Appt Details Provider Name:Eleazar spaulding, 10/12/2024 02:00:00 PM, [address], [place], [address], Provider Name:Eleazar spaulding, 11/09/2024 02:00:00 PM, [address], [place], [address], Provider Name:Eleazar spaulding, 12/07/2024 02:00:00 PM, [address] [facility] [address], [place], [address], Progress Notes * Ariadne CAGE KDOB:1949 (74 yo F)Acc No.[id number]:09/14/2024 Infusion Patient: Ariadne ARANA Provider: Isela Watkins MD :1950 A ge:74 Y S ex:Female Date:09/14/2024 Address:[address] [place] [address] Pcp:Dg Huerta MD Subjective: * Chief Complaints: [...] date? 03/29, L ot number _ __ [id number], S terile water (number of vials) . auto injector, S terile water lot number _ __ [id number], S terile water exp. date 11/28, s [...] History: * Surgical History: H ip surgery; 1532-96-01Oarhg surgery; 2805-89-79sscyc valve; 4533-69-01Phzcxqtrh tube; 2020-08-14 * Hospitalization/Major Diagno stic Procedure: [...] by intravenous route every 4 weeks Intravenous [id number] Pantoprazole Sodium 40 MG Tablet Delayed Release take 1 tablet (40 mg) by oral route once daily Oral 1 Spironolactone-HCTZ 25-25 mg Tablet take 1 tablet by oral route once daily Oral 1 Folic Acid 1 MG Tablet TAKE 1 TABLET ONE TIME DAILY Taking Orencia 250 mg Solution Reconstituted infuse 1,000 mg over 30 minute(s) by intravenous route every 4 weeks Intravenous [id number]-26 Taking Pantoprazole Sodium 40 MG Tablet Delayed [...] Codes: J 0129 ABATACEPT INJECTION, Units: 75.00 65562 THER/PROPH/DIAG IV INF, INIT * Billing Information: * Visit Code: * Procedure Codes: J0129 ABATACEPT INJECTION. Units: 75.00. 10125 THER/PROPH/DIAG IV INF, INIT. * Electronically co-signed by Eleazar Watkins MD on 09/15/2024 at 08:22 AM CDT Sign off status: Completed true * Provider: Isela Watkins MD Date: 0 09/14/2024 Generated for Gary gaines/Brandie/Cuate on: 0 10/11/2024 08:30 AM CDT History and Physical Notes * HPI (History of Present Illness) Category Sub-Category Detail Notes Category Not es Infusion Infusion Record Type of Infusion: ,Orencia What is the dosage: . 750mg How is the dose calculated: . weight bas ed Authorized by: ,Dr. Resendizrio Number of vials to reconstitute: . 3 Infusion type: ,Orencia Amount: . 750mg Enamel Pulverizer: ____ BMS Expiration date: 03/29 Lot number: ___ [id number] Sterile water (number of vials): . auto injector Sterile water lot number: ___ [id number] Sterile water exp. date: 11/28 sterile water [...]
--- OUTSIDE RECORDS SUMMARY | 2024-10-11 08:30 | XMS_ITS ---
Author Organization [facility] denae Address [address] [place] [address] Care Team Providers Care Customer Care Professional Name Role Phone Deanna FRANZ, [facility] Primary Care Provider UnavailEleazar Francisco Unavailable [phone] Eleazar Watkins MD Unavailabl e REASON FOR VISIT pharmacy Encounters Encounter Location Date Provider Diagnosis [facility] [address] [place] [address] 09/14/2024 Eleazar Watkins Plan Of Treatment Next Appt Details Provider Name:Eleazar Randall Violeta spaulding, 10/12/2024 02:00:00 PM, [address], [place], [address], Provider Name:Eleazar Randall Violeta spaulding, 11/09/2024 02:00:00 PM, [address], [place], [address], Provider Name:Eleazar Randall Violeta spaulding, 12/07/2024 02:00:00 PM, [address], [place], [address], Progress Notes * Ariadne CAGE KDOB:1949 (74 yo F)Acc No.[id number]:09/14/2024 Patient: Isreal ALBERT Ariadne Iris :1950 A ge:74 Y S ex:Female Address:[address] [facility] [place] [address], [place], [address] * true * Date: Generated for Printi /Brandie/Cuate on: 0 10/11/2024 08:29 AM CDT
--- OUTSIDE RECORDS SUMMARY | 2024-10-11 08:30 | XMS_ITS ---
Author Name Jessi Taveras Address [address] [place] [address] Phone [phone] Organization [employer] Address [address] [place] [address] Phone [phone] Care Team Providers Care Steam Gigger Name Role Phone [place], Jessi Barbour Unavailable Sanchez Coronado Unavailable [phone] Kaycee Sena Unavailable Lesly Corcoran Unavailable [phone] Eleazar Khan Unavailable [phone] Functional Status Mental Status Allergies and Intolerances Encounters Immunizations Medications Problems Vital Signs Reason for Referral
--- OUTSIDE RECORDS SUMMARY | 2024-10-11 08:30 | XMS_ITS | Clinical Summary ---
Author Organization [facility] Address [address] [place] [address] Phone Care Team Providers Care House Decorator Name Role Phone Unavailable Primary Care Provider [...]
--- OUTSIDE RECORDS SUMMARY | 2024-10-11 08:30 | XMS_ITS | Encounter Summary ---
Author Organization [facility] Address [address] [facility] [address] [place] [address] Care Team Providers Care Dry Primer Powder Blender Name Role Phone Dg Huerta MD Primary Care Provider [phone] Dg Huerta MD Primary Care Provider [phone] Dg Huerta MD Primary Care Provider [phone] Xavier Frederick MD Unavailable [phone] Encounter Details Date Type Department Care Team (Late st Contact Info) Description 08/04/2016 Orders Only [facility] ProviderEtelvina MD [address] [place] [address] Social History Tobacco Use Types Packs/Day Years Used Date Smoking Tobacco: Some Days Cigarettes Last attempted to quit: 07/05/1990 Alcohol Use Standard Drinks/Week Comments No 0 (1 standard drink = 0.6 oz pur e alcohol) Comments Unknown Sex and Gender Information Value Date Recorded Sex Assigned at Not on file 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
--- OUTSIDE RECORDS SUMMARY | 2024-10-11 08:31 | XMS_ITS | Encounter Summary ---
Author Organization [facility] Address [address] [place] [address] Phone Care Team Providers Care Merchandising Execution Associate Name Role Phone Dg Huerta MD Primary Care Provider [phone] Xavier Frederick MD Unavailable [phone] Encounter Details Date Type Department Care Team (Late st Contact Info) Description 09/12/2024 Results Follow-Up [facility] [address] [facility] [address] [place] [address] Xavier Frederick MD [address] [address] Social History Tobacco Use Types [...] on file 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 Minimize further functional decline 2. Maximize quality of life 3. Control pain Strategies: - Activity/exercise program recommendation - Conservative stepwise pain medicine strategy with multi-disciplinary approach - Recommend healthy lifestyle strategies and compensatory methods as needed documented as of this encounter Visit Diagnoses Not on filedocumented in this encounter Care Teams Merchandising Execution Associate Relationship Specialty Start Date End Date Dg Huerta MD PCP - General 10/02/16 Xavier Frederick MD [address] [place] [address] Referring Physician Cardiology 10/02/24 documented as of this encounter
--- OUTSIDE RECORDS SUMMARY | 2024-10-11 08:31 | XMS_ITS | Referral Summary ---
Author Organization [facility] Address [address] [place] [address] Care Team Providers Care Milk Vendor Name Role Phone Dg Huerta MD Primary Care Provider Xavier Frederick MD Unavailable Encounters Date Type Department Care Team Description 10/09/2024 Telephone [facility] Cardiology [address] [place] [address] Advanced Medicine [address]th [place] [address] [place] [address] Jacinto Reilly 10/02/[address] Advanced Medicine 8th [place] [address] [place] [address] Xavier Frederick MD Scheduling Appointments 09/27/[address] Advanced Medicine 8th [place] [address] [place] [address] Xavier Frederick MD Test Results 09/21/2024 4:39 PM CDT - 09/21/2024 11:59 PM CDT Hospital Encounter [facility] [address] [place] [address] Discharge Disposition: Discharge to home or self care 09/19/2024 Telephone [facility] Cardiology [address] [place] [address] Advanced Medicine 8th [place] [address] [place] [address] Xavier Frederick MD 09/14/2024 7:49 PM CDT - 09/14/2024 11:59 PM CDT Hospital Encounter [address] [place] [address] Discharge Disposition: Discharge to home or self care 09/12/2024 Results Follow-Up [facility]iology [address] [address] [place] [phone] Xavier Frederick MD 09/12/2024 2:30 PM CDT Office Visit [facility] [address] [place] [address] Xavier Frederick MD S/P MVR (mitral valve replacement) (Primary Dx); Heart valve disorder; Shortness of breath 08/18/2024 Telephone [facility]iology [address] [place] [address] [place] [address] Yecenia Dunn 07/19/2024 Orders Only [facility] Scanning, Provider 07/17/2024 Orders Only [facility] Scanning, Provider from Last 3 Months Allergies Active Allergy Reactions Criticality Noted Date Comments Rabeprazole Hives Medium Nizatidine Hives Medium Reaction: hives, Medications abatacept (ORENCIA) 250 mg injection Infuse 30 mL (750 mg total) into a venous catheter every 4 (four) weeks Active methotrexate 2.5 mg tablet TAKE 10 TABLETS (25 MG TOTAL) ONE TIME A WEEK DIRECTED 130 tablet [address] (CYMBALTA) 20 mg capsule Take 1 capsule (20 mg total) by mouth daily 020 Active albuterol HFA (PROVENTIL HFA,VENTOLIN HFA,PROAIR HFA) 90 mcg/actuation inhaler Inhale 1 puff every 4 (four) hours as needed Active potassium chloride ER 20 mEq CR tablet [address] (PROTONIX) 40 mg EC tablet Take 1 tablet (40 mg total) by mouth daily Active spironolactone (ALDACTONE) 25 mg tablet Take 1 tablet (25 mg total) by mouth 023 Active acetaminophen 500 mg capsuleIndication s:Pain Take [...] cetirizine (ZyrTEC) 5 mg tablet daily 0 025 Active furosemide (LASIX) 40 mg tablet Take [...] management - Sinus precautions, HOB elevated - Iron nasal spray - ice packs prn - [...] (10/31/2023 11:21 AM CDT): - Orencia 750mg [id number] [last dose 10/19] Psoriasis 11/18/2013 Overview (10/09/2016): [...] 58.3 S tarted: 1966 Smokeless Tobacco: Never Tobacco [...] on file 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 Minimize further functional decline 2. Maximize quality of life 3. Control pain Strategies: - Activity/exercise program recommendation - Conservative stepwise pain medicine strategy with multi-disciplinary approach - Recommend healthy lifestyle strategies and compensatory methods as needed Medical Devices Implanted Type Area Sheet Manager Device Identifier Shelf Expiration Date Model / Serial / Lot [employer]/ Ortho Plate Evos 2.7mm/3.5mm Olecranon W/ Tines 7h R 114mm [id number] - [id number] Implanted:Qty: 1 on 10/29/2023 by Dee Meyer MD at [facility] Right: Forearm [employer]/O rtho [id number] / / [employer]/ Ortho 2.7mm 4.3mm 55mm Lock Self Retain Flat Head Long Bone Small Bone [id number] - [id number] Implanted:Qty: 1 on 10/29/2023 by Dee Meyer MD at [facility] Right: Forearm [employer]/O rtho [id number] / / [employer] Evolve 20mm Modular Elbow Standard Head Radial Proline 496-H020 - [id number] Implanted:Qty: 1 on 10/29/2023 by Dee Meyer MD at [facility] Right: Forearm [employer] [id number] 04/06/2031 496-H020 / / [id number] [employer] Evolve 7.5mm Head System Smooth Elbow +4mm Stem Radial Proline [id number] - [id number] Implanted:Qty: 1 on 10/29/2023 by Dee Meyer MD at [facility] Right: Forearm [employer] 11/18/2028 [id number] / / [id number] [employer]/ Ortho Evos 3.5mm 22mm Self Tap Cortex Screw Bone Sterile [id number] - [id number] Implanted:Qty: 1 on 10/29/2023 by Dee Meyer MD at [facility] Right: Forearm [employer]O [employer]tho [id number] / / [employer]/ Ortho Evos 3.5mm 18mm Self Tap Cortex Screw Bone Sterile [id number] - [id number] Implanted:Qty: 1 on 10/29/2023 by Dee Meyer MD at [facility] Right: Forearm [employer]O [employer]o [id number] / / [employer]/ Ortho Evos 3.5mm 14mm Self Tap Cortex Screw Bone Sterile [id number] - [id number] Implanted:Qty: 1 on 10/29/2023 by Dee Meyer MD at [facility] Right: Forearm [employer]o [id number] / / [employer]/ Ortho Evos 2.7mm 4.5mm 16mm Self Tap Cortex T8 Screw Bone Mini Plate [id number] - [id number] Implanted:Qty: 1 on 10/29/2023 by Dee Meyer MD at [facility] Right: Forearm [employer]O [employer]tho [id number] / / [employer]/ Ortho 2.7mm 4.5mm 80mm Self Retaining Screwdriver Self Tap Flat Head [id number] - [id number] Implanted:Qty: 1 on 10/29/2023 by Dee Meyer MD at [facility] Right: Forearm [employer]tho [id number] / / [employer]/ Ortho Evos 3.5mm 24mm Self Tap Lock Screw Bone Sterile [id number] - [id number] Implanted:Qty: 1 on 10/29/2023 by Dee Meyer MD at [facility] Right: Forearm [employer]O [employer]tho [id number] / / Explanted Type Area Sheet Manager Device Identifier Shelf Expiration Date Model / Serial / Lot [employer] /Ortho Evos 3.5mm 24mm Self Tap Cortex Screw Bone Sterile [id number] - [id number] Explanted:Qty : 1 on 10/29/2023 by Dee Meyer MD at [facility] Right: Forearm [employer]/Or tho [id number] / / [employer] /Ortho Evos Mini 2.7mm 4.5mm 80mm Self Tap Cortex T8 Screw Bone [id number] - [id number] Explanted:Qty : 1 on 10/29/2023 by Dee Meyer MD at [facility] Right: Forearm [employer]/Or tho [id number] / / Procedures Procedure Name Priority Date/Time [...] 09/12/2024 3:06 PM CDT Heart valve disorder CARDIOLOGY DOCUMENT SCAN 07/18/2024 CARDIOLOGY DOCUMENT SCAN 07/17/2024 SCREENING MAMMOGRAM BILATERAL W CARLOS Schedule Routine, Read Routine (OP Routine) 07/19/2023 1:50 PM PIPE [employer] Screening mammogram, encounter for DEXA AXIAL SKELETON BONE DENSITY 1 OR MORE SITES Schedule Routine, Read Routine (OP Routine) 12/22/2021 1:25 PM CDT Genitourinary syndrome of menopause from Last 3 Months or Most Recently Relevant to Health Maintenance Results * US Outside Reference (09/21/2024 4:39 PM CDT) Impressions [facility] - 09/21/2024 4:39 PM CDT These images are for Reference purposes only and have not been reviewed by [facility]. There will be no report generated by a [facility] Radiologist. Narrative [facility] - 09/21/2024 4:39 PM CDT EXAMINATION: Images For Reference Purposes Only us Xavier Frederick MD IMG US PROCEDURES Final Resul t [facility] * (ABNORMAL) eGFR (09/14/2024 2:42 PM [...] of Race in Diagnosing Kidney Disease, JASN 2021). The CKD-EPI equation should not be used for patients with unstable renal function and has not been validated in children and those over 70. Current interpretive data was last reviewed 2021. Blood 09/14/2024 2:42 PM CDT 09/14/2024 9:18 PM CDT us Eleazar Khan MD LAB BLOOD ORDERABLES Fin al Result [facility] [address] [place] [address] * (ABNORMAL) Differential, auto (09/14/2024 2:42 PM CDT) Neutrophil abs 7.7(H) 1.5 - 6.5 K/cumm Imm gran abs 0.1 0.0 - 0.1 K/cumm [facility] Lymphocyte abs 1.3 0.8 - 3.3 K/cumm [facility] Monocyte abs 0.8 0.2 - 0.8 K/cumm [facility] Eosinophil abs 0.2 0.0 - 0.5 K/cumm [facility] Basophil abs 0.1 0.0 - 0.1 K/cumm [facility] Neutrophil pct 76.3 % [facility] Comment: Interpretive Data Percent cell count reference ranges are not reported, since discordance with absolute values may lead to misinterpretation of CBC data. Current Interpretive Data was last revised on 2017. Imm gran pct 0.5 % [facility] Comment: Interpretive Data Percent cell count reference ranges are not reported, since discordance with absolute values may lead to misinterpretation of CBC data. Current Interpretive Data was last revised on 2017. Lymphocyte pct 12.5 % [facility] Comment: Interpretive Data Percent cell count reference ranges are not reported, since discordance with absolute values may lead to misinterpretation of CBC data. Current Interpretive Data was last revised on 2017. Monocyte pct 8.3 % [facility] Comment: Interpretive Data Percent cell count reference ranges are not reported, since discordance with absolute values may lead to misinterpretation of CBC data. Current Interpretive Data was last revised on 2017. Eosinophil pct 1.6 % [facility] Comment: Interpretive Data Percent cell count reference ranges are not reported, since discordance with absolute values may lead to misinterpretation of CBC data. Current Interpretive Data was last revised on 2017. Basophil pct 0.8 % [facility] Comment: Interpretive Data Percent cell count reference ranges are not reported, since discordance with absolute values may lead to misinterpretation of CBC data. Current Interpretive Data was last revised on 2017. Blood 09/14/2024 2:42 PM CDT 09/14/2024 8:29 PM CDT us Eleazar Khan MD LAB BLOOD ORDERABLES Fin al Result [facility] [address] [place] [address] * (ABNORMAL) CBC with auto differential (09/14/2024 2:42 PM CDT) WBC 10.1(H) 3.8 - 9.9 K/cumm Hgb 13.9 11.9 - 15.5 g/dL [facility] Hct 42.2 35.6 - 45.5 % [facility] Plt 287 150 - 400 K/cumm [facility] MPV 10.2 9.1 - 12.3 fL [facility] RBC 4.95 3.90 - 5.20 M/cumm [facility] MCV 85.3 81.3 - 96.4 fL [facility] MCH 28.1 27.1 - 33.3 pg [facility] MCHC 32.9 32.3 - 35.7 g/dL [facility] RDW CV 16.2(H) 11.1 - 14.9 % [facility] RDW SD 48.8(H) 35.7 - 48.1 fL [facility] NRBC abs 0.00 0.00 - 0.01 K/cumm [facility] Blood 09/14/2024 2:42 PM CDT 09/14/2024 8:29 PM CDT Eleazar Khan MD LAB BLOOD ORDERABLES Fin al Result Performing Organization Address City/[facility] Co de Phone Number [facility] [address] [place] [address] * (ABNORMAL) Creatinine (09/14/2024 2:42 PM CDT) Creatinine 1.43(H) 0.60 - 1.10 mg/dL Blood 09/14/2024 2:42 PM CDT 09/14/2024 8:29 PM CDT Eleazra Khan MD LAB BLOOD ORDERABLES Fin al Result Performing Organization Address [facility] de Phone Number [facility] [address] [place] [address] * (ABNORMAL) Hepatic function panel (09/14/2024 2:42 PM CDT) Bilirubin, total 1.0 0.1 - 1.2 mg/dL Bilirubin, direct 0.5(H) 0.1 - 0.3 mg/dL [facility] Protein, pl 8.1 6.5 - 8.5 g/dL [facility] Albumin 4.2 3.5 - 5.0 g/dL [facility] Alk phos 58 40 - 130 Units/L [facility] ALT 12 7 - 45 Units/L [facility] AST 27 10 - 45 Units/L [facility] Blood 09/14/2024 2:42 PM CDT 09/14/2024 8:29 PM CDT Eleazar Khan MD LAB BLOOD ORDERABLES Fin al Result Performing Organization Address [facility] Co de Phone Number [facility] [address] [facility] [place] [address] * ECG 12 lead (09/12/2024 3:06 PM CDT) us Xavier Frederick MD ECG ORDERABLES Final Result * Cardiology Document Scan (07/18/2024) Anatomical Region Laterality Modality Other us Provider Scanning [facility] PROCEDURES Edited Result - Final * Cardiology Document Scan (07/17/2024) Anatomical Region Laterality Modality Other us Provider Scanning [facility] CARDIAC SERVICES PROCEDURES Edited Result - Final * Screening Mammogram Bilateral W Carlos (07/19/2023 1:50 PM PIPE [employer]TE[employer]CE) Anatomical Region Laterality Modality Breast Bilateral Mammography Narrative 07/19/2023 2:22 PM [employer]TE[employer] Examination: Screening Mammogram Bilateral W Carlos: 07/19/23 [...] bone density.. DXA BMD was done at [facility] on a Hologic Discovery CI. Precision testing [...] bone density.. DXA BMD was done at [facility] on a Hologic Discovery CI. Precision testing [...] Insurance MEDICARE LOCAL [address] [facility] SUPPLEMENT MEDICARE MEDICARE LOCAL [address] [facility] SUPPLEMENT MEDICARE COMMERCIAL GENERIC Advance Directives For more information, please contact: [phone] * Full Code (Latest Code Status on File) Date Activated Date Inactivated Comments 10/29/2023 3:27 PM 11/03/2023 12:45 AM * Full Code Date Activated Date Inactivated Comments 10/29/2023 1:01 AM 10/29/2023 3:27 PM * Full Code Date Activated Date Inactivated Comments 01/08/2021 12:21 PM 01/09/2021 4:50 AM Care Teams Milk Vendor Relationship Specialty Start Date End Date Dg Huerta MD PCP - General 10/02/16 Xavier Frederick MD [address] [facility] [address] [place] [address] Referring Physician Cardiology 10/02/24
--- OUTSIDE RECORDS SUMMARY | 2024-10-11 08:31 | XMS_ITS | Clinical Summary ---
Author Organization [facility] Address [address] [place] [address] Care Team Providers Care Fitter Hand Name Role Phone Dg Huerta MD Primary Care Provider [phone] Xavier Frederick MD Unavailable [phone] Allergies Active Allergy Reactions Criticality Noted Date [...] puff every 4 (four) hours as needed 021 Active potassium chloride ER 20 mEq CR tablet [address] (PROTONIX) 40 mg EC tablet Take 1 tablet (40 mg total) by mouth daily Active spironolactone (ALDACTONE) 25 mg tablet Take 1 tablet (25 mg total) by mouth 023 Active acetaminophen 500 mg capsuleIndication s:Pain Take 2 capsules (1,000 mg total) by mouth every 6 (six) hours as needed for pain 024 Active sodium chloride (OCEAN) 0.65 % nasal [...] mouth every 6 (six) hours 30 tablet 2024 Discontinued(T herapy completed) Active Problems Problem [...] management - Sinus precautions, HOB elevated - [place] nasal spray - ice packs prn - [...] (10/31/2023 11:21 AM CDT): - Orencia 750mg [id number] [last dose 10/19] Psoriasis 11/18/2013 Overview (10/09/2016): [...] Type Department Care Team Description 10/09/2024 Telephone [facility] [address] 8th [place] [address] [place] [address] Jacinto Reilly 10/02/2024 Telephone [facility] [address] 8th [place] [address] [place] [address] Xavier Frederick MD Scheduling Appointments 09/27/2024 Telephone [facility] [address] [place] [address] Advanced [facility] 8th [place] [address] [place] [address] Xavier Frederick MD Test Results 09/21/2024 4:39 PM CDT - 09/21/2024 11:59 PM CDT Hospital Encounter [facility] [address] [place] [address] Discharge Disposition: Discharge to home or self care 09/19/[address]th [place] [address] [place] [address] Xavier Frederick MD 09/14/2024 7:49 PM CDT - 09/14/2024 11:59 PM CDT Hospital Encounter [address] [phone] Discharge Disposition: Discharge to home or self care 09/12/2024 2:30 PM CDT Office Visit [facility] [address] [place] [address] Medical Office [address] [place] [phone] Xavier Frederick MD S/P MVR (mitral valve replacement) (Primary Dx); Heart valve disorder; Shortness of breath 09/12/2024 Results Follow-Up [facility] [address] [place] [address] Medical Office Building [address] [place] [phone] Xavier Frederick MD 08/18/2024 Telephone [facility] [address] [place] [address] Advanced Medicine 8th [place] [address] [place] [address] Yecenia Dunn 07/19/2024 Orders Only [facility] Scanning, Provider 07/17/2024 Orders Only [facility] Scanning, Provider from Last 3 Months Immunizations Immunization Administration [...] on file Legal Sex Female 12:17 AM MOLD PULLER Gender Identity Not on file Sexual Orientation [...] 36.6 C (97.8 F) 06/29/2024 11:58 AM MOLD PULLER Respiratory Rate 16 06/29/2024 6:30 PM MOLD PULLER Oxygen Saturation 93% 09/12/2024 3:14 PM CDT [...] exists Osteoporosis Screening-Bone Density Scan 12/23/2023 12/22/2021 Breast Cancer Screening-Mammogram 07/19/2024 07/19/2023, 06/12/2022, 05/09/2021, Additional history exists Fall Risk Assessment 11/01/2024 11/02/2023, 06/19/2021, 07/25/2020, Additional history exists Influenza Vaccine (Season Ended) 2025 06/18/2023, 04/04/2020, 05/15/2019, Additional history exists DTaP/Tdap/Td Vaccine (2 - [...] Plan Chronic Care Management Worsening( 2:58 PM MOLD PULLER) No Viola Murphy RN Note: Problem: Chronic Pain Goals: 1. Minimize further functional decline 2. Maximize quality of life 3. Control pain Strategies: - Activity/exercise program recommendation - Conservative stepwise pain medicine strategy with multi-disciplinary approach - Recommend healthy lifestyle strategies and compensatory methods as needed Medical Devices Implanted Type Area Garbage Pick Up Worker Device Identifier Shelf Expiration Date Model / Serial / Lot [employer]/ Ortho Plate Evos 2.7mm/3.5mm Olecranon W/ Tines 7h R 114mm [id number] - [id number] Implanted:Qty: 1 on 10/29/2023 by Dee Meyer MD at [facility] Right: Forearm [employer]Rich[employer]/O rtho [id number] / / [employer]Rich[employer]/ Ortho 2.7mm 4.3mm 55mm Lock Self Retain Flat Head Long Bone Small Bone [id number] - [id number] Implanted:Qty: 1 on 10/29/2023 by Dee Meyer MD at [facility] Right: Forearm [employer]/Rich[employer]/O rtho [id number] / / [employer] Evolve 20mm Modular Elbow Standard Head Radial Proline 496-H020 - [id number] Implanted:Qty: 1 on 10/29/2023 by Dee Meyer MD at [facility] Right: Forearm [employer] [id number] 04/06/2031 496-H020 / / [id number] [employer] Evolve 7.5mm Head System Smooth Elbow +4mm Stem Radial Proline [id number] - [id number] Implanted:Qty: 1 on 10/29/2023 by Dee Meyer MD at [facility] Right: Forearm [employer] 11/18/2028 [id number] / / [id number] [employer]Rich[employer]/ Ortho Evos 3.5mm 22mm Self Tap Cortex Screw Bone Sterile [id number] - [id number] Implanted:Qty: 1 on 10/29/2023 by Dee Meyer MD at [facility] Right: Forearm [employer]/O rtho [id number] / / [employer]/ Ortho Evos 3.5mm 18mm Self Tap Cortex Screw Bone Sterile [id number] - [id number] Implanted:Qty: 1 on 10/29/2023 by Dee Meyer MD at [facility] Right: Forearm [employer]/O rtho [id number] / / [employer]/ Ortho Evos 3.5mm 14mm Self Tap Cortex Screw Bone Sterile [id number] - [id number] Implanted:Qty: 1 on 10/29/2023 by Dee Meyer MD at [facility] Right: Forearm [employer]/O rtho [id number] / / [employer]/ Ortho Evos 2.7mm 4.5mm 16mm Self Tap Cortex T8 Screw Bone Mini Plate [id number] - [id number] Implanted:Qty: 1 on 10/29/2023 by Dee Meyer MD at [facility] Right: Forearm [employer]/O rtho [id number] / / [employer]/ Ortho 2.7mm 4.5mm 80mm Self Retaining Screwdriver Self Tap Flat Head [id number] - [id number] Implanted:Qty: 1 on 10/29/2023 by Dee Meyer MD at [facility] Right: Forearm [employer]/O rtho [id number] / / [employer]/ Ortho Evos 3.5mm 24mm Self Tap Lock Screw Bone Sterile [id number] - [id number] Implanted:Qty: 1 on 10/29/2023 by Dee Meyer MD at [facility] Right: Forearm [employer]/O rtho [id number] / / Explanted Type Area Garbage Pick Up Worker Device Identifier Shelf Expiration Date Model / Serial / Lot [employer]Rich[employer] /Ortho Evos 3.5mm 24mm Self Tap Cortex Screw Bone Sterile [id number] - [id number] Explanted:Qty : 1 on 10/29/2023 by Dee Meyer MD at [facility] Right: Forearm [employer]/Or tho [id number] / / [employer]Rich[employer] /Ortho Evos Mini 2.7mm 4.5mm 80mm Self Tap Cortex T8 Screw Bone [id number] - [id number] Explanted:Qty : 1 on 10/29/2023 by Dee Meyer MD at [facility] Right: Forearm [employer]Rich[employer]/Or tho [id number] / / Procedures Procedure Name Priority Date/Time [...] Read Routine (OP Routine) 07/19/2023 1:50 PM MOLD PULLER Screening mammogram, encounter for DEXA AXIAL SKELETON BONE DENSITY 1 OR MORE SITES Schedule Routine, Read Routine (OP Routine) 12/22/2021 1:25 PM CDT Genitourinary syndrome of menopause from Last 3 Months or Most Recently Relevant to Health Maintenance Results * US Outside Reference (09/21/2024 4:39 PM CDT) Impressions RAD_PACS_BJ - 09/21/2024 4:39 PM CDT These images are for Reference purposes only and have not been reviewed by [facility]. There will be no report generated by a [facility] Radiologist. Narrative RAD_PACS_BJ - 09/21/2024 4:39 PM [...] MD LAB BLOOD ORDERABLES Fin al Result [facility] [address] [place] [address] * (ABNORMAL) Differential, auto (09/14/2024 2:42 PM CDT) Neutrophil abs 7.7(H) 1.5 - 6.5 K/cumm Imm gran abs 0.1 0.0 - 0.1 K/cumm [facility] Lymphocyte abs 1.3 0.8 - 3.3 K/cumm [facility] Monocyte abs 0.8 0.2 - 0.8 K/cumm [facility] Eosinophil abs 0.2 0.0 - 0.5 K/cumm [facility] Basophil abs 0.1 0.0 - 0.1 K/cumm [facility] Neutrophil pct 76.3 % [facility] Comment: Interpretive Data Percent cell count reference ranges are not reported, since discordance with absolute values may lead to misinterpretation of CBC data. Current Interpretive Data was last revised on 2017. Imm gran pct 0.5 % [facility] Comment: Interpretive Data Percent cell count reference ranges are not reported, since discordance with absolute values may lead to misinterpretation of CBC data. Current Interpretive Data was last revised on 2017. Lymphocyte pct 12.5 % [facility] Comment: Interpretive Data Percent cell count reference ranges are not reported, since discordance with absolute values may lead to misinterpretation of CBC data. Current Interpretive Data was last revised on 2017. Monocyte pct 8.3 % [facility] Comment: Interpretive Data Percent cell count reference ranges are not reported, since discordance with absolute values may lead to misinterpretation of CBC data. Current Interpretive Data was last revised on 2017. Eosinophil pct 1.6 % [facility] Comment: Interpretive Data Percent cell count reference ranges are not reported, since discordance with absolute values may lead to misinterpretation of CBC data. Current Interpretive Data was last revised on 2017. Basophil pct 0.8 % [facility] Comment: Interpretive Data Percent cell count reference ranges are not reported, since discordance with absolute values may lead to misinterpretation of CBC data. Current Interpretive Data was last revised on 2017. Blood 09/14/2024 2:42 PM CDT 09/14/2024 8:29 PM CDT us Eleazar Khan MD LAB BLOOD ORDERABLES Fin al Result [facility] [address] [place] [address] * (ABNORMAL) CBC with auto differential (09/14/2024 2:42 PM CDT) WBC 10.1(H) 3.8 - 9.9 K/cumm Hgb 13.9 11.9 - 15.5 g/dL [facility] Hct 42.2 35.6 - 45.5 % [facility] Plt 287 150 - 400 K/cumm [facility] MPV 10.2 9.1 - 12.3 fL [facility] RBC 4.95 3.90 - 5.20 M/cumm [facility] MCV 85.3 81.3 - 96.4 fL [facility] MCH 28.1 27.1 - 33.3 pg [facility] MCHC 32.9 32.3 - 35.7 g/dL [facility] RDW CV 16.2(H) 11.1 - 14.9 % [facility] RDW SD 48.8(H) 35.7 - 48.1 fL [facility] NRBC abs 0.00 0.00 - 0.01 K/cumm [facility] Blood 09/14/2024 2:42 PM CDT 09/14/2024 8:29 PM CDT Eleazar Khan MD LAB BLOOD ORDERABLES Fin al Result Performing Organization Address City/[facility] Co de Phone Number [facility] [address] [facility] [place] [address] * (ABNORMAL) Creatinine (09/14/2024 2:42 PM CDT) Creatinine 1.43(H) 0.60 - 1.10 mg/dL Blood 09/14/2024 2:42 PM CDT 09/14/2024 8:29 PM CDT Eleazar Khan MD LAB BLOOD ORDERABLES Fin al Result Performing Organization Address [facility] de Phone Number [facility] [address] [facility] [place] [address] * (ABNORMAL) Hepatic function panel (09/14/2024 2:42 PM CDT) Bilirubin, total 1.0 0.1 - 1.2 mg/dL Bilirubin, direct 0.5(H) 0.1 - 0.3 mg/dL [facility] Protein, pl 8.1 6.5 - 8.5 g/dL [facility] Albumin 4.2 3.5 - 5.0 g/dL [facility] Alk phos 58 40 - 130 Units/L [facility] ALT 12 7 - 45 Units/L [facility] AST 27 10 - 45 Units/L [facility] Blood 09/14/2024 2:42 PM CDT 09/14/2024 8:29 PM CDT Eleazar Khan MD LAB BLOOD ORDERABLES Fin al Result Performing Organization Address [facility] Co de Phone Number [facility] [address] [facility] [place] [address] * ECG 12 lead (09/12/2024 3:06 PM [...] Mammogram Bilateral W Carlos (07/19/2023 1:50 PM MOLD PULLER) Anatomical Region Laterality Modality Breast Bilateral Mammography Narrative 07/19/2023 2:22 PM MOLD PULLER Examination: Screening Mammogram Bilateral W Carlos: 07/19/23 [...] bone density.. DXA BMD was done at [facility] on a Hologic Discovery CI. Precision testing [...] bone density.. DXA BMD was done at [facility] on a Hologic Discovery CI. Precision testing [...] Most Recently Relevant to Health Maintenance Insurance LOCAL [address] [facility] SUPPLEMENT Member Subscriber Plan / Payer (Ef fective 1991-Present) Name:Ariadne Okeefe Relation to Subscriber:Self Name:Ariadne Okeefe Payer ID:[id number] Group ID:[id number] [facility] Type:COMMERCIAL Address: [place] [address] MEDICARE MEDICARE LOCAL [address] [facility] SUPPLEMENT MEDICARE COMMERCIAL GENERIC Advance Directives For more information, please contact: [phone] * Full Code (Latest Code Status on File) Date Activated Date Inactivated Comments 10/29/2023 3:27 PM 11/03/2023 12:45 AM * Full Code Date Activated Date Inactivated Comments 10/29/2023 1:01 AM 10/29/2023 3:27 PM * Full Code Date Activated Date Inactivated Comments 01/08/2021 12:21 PM 01/09/2021 4:50 AM Care Teams Fitter Hand Relationship Specialty Start Date End Date Dg Huerta MD PCP - General 10/02/16 Xavier Frederick MD [address] [facility] [address] [place] [address] Referring Physician Cardiology 10/02/24
[2024-10-11 08:35] VITALS: BP 125/57; PULSE 68; RESP 16; TEMP 36.6; O2SAT 97
[2024-10-11 09:02] LABS: Mean Platelet Volume 9.6 fl (7.4-10.4); Platelet Count Result 144 k/mm3 (150-375)
[2024-10-11 09:17] LABS: INR 1.1; Prothrombin Time 14.6 Seconds (11.1-14.7)
[2024-10-11 11:20] VITALS: BP 125/89; PULSE 72; RESP 20
[2024-10-11 11:35] VITALS: BP 127/54; PULSE 61; RESP 20
[2024-10-11 11:50] VITALS: BP 140/56; PULSE 61; RESP 20
[2024-10-11 12:15] VITALS: BP 127/52; PULSE 58; RESP 20
[2024-10-11 12:45] VITALS: BP 131/51; PULSE 67; RESP 20
--- NOTE | 2024-10-11 13:08 | SUR.PHASEII ---
1300 - pt to be discharged. meets time frame. waiting for ride
[2024-10-11 13:28] LABS: Appearance Pleural Fluid Hazy (Clear); Color Pleural Fluid Yellow (Colorless); Nucleated Cell Pleural Fluid 116 /uL (0-1000); Pleural fluid source Pleural fluid; RBC Pleural Fluid 6000 /uL (0-10000)
[2024-10-11 13:29] LABS: Lymphocytes Pleural Fluid 9 %; Macrophages Pleural Fluid 55 %; Monocytes Pleural Fluid 8 %; Neutrophils Pleural Fluid 28 % (0-25)
== END 2024-10-11 13:45 | disposition home or self-care (01) ==
PROVIDERS: PCP Nurse Practitioner Adult Health; Visit Provider Radiology Diagnostic Radiology
DX: J90 Pleural effusion, not elsewhere classified (principal); R91.1 Solitary pulmonary nodule
CPT/HCPCS: 32555; 36415; 85049; 85610; 87070; 87075; 87205; 88108; 88305; 89051

== ENCOUNTER → 2024-10-11 11:35 | Outpatient (REF) | payer MEDICARE, OTHER, SELFPAY ==
--- OUTSIDE RECORDS SUMMARY | 2024-10-11 13:17 | XMS_ITS | Encounter Summary ---
Author Organization [facility] Address [address] [place] [address] Phone Care Team Providers Care Operating Manager Name Role Phone Dg Huerta MD Primary Care Provider [phone] Xavier Frederick MD Unavailable [phone] Encounter Details Date Type Department Care [...] on file Legal Sex Female 12:17 AM WAFER CUTTER Gender Identity Not on file Sexual Orientation [...] Plan Chronic Care Management Worsening( 2:58 PM WAFER CUTTER) No Viola Murphy, SARINA Note: Problem: Chronic [...] on filedocumented in this encounter Care Teams Operating Manager Relationship Specialty Start Date End Date Dg Huerta MD PCP - General 10/02/16 Xavier Frederick MD [address] [place] [address] Referring Physician Cardiology 10/02/24 documented as of this encounter
--- OUTSIDE RECORDS SUMMARY | 2024-10-11 13:17 | XMS_ITS | Encounter Summary ---
Author Organization 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 It was scheduled for 10/10/24. I went ahead and cancelled the office visits but the TAVR CT needs to be cancelled. Please call Kandy at [phone]. documented in this encounter Plan of Treatment [...] orders or changes made to medication regimen. [facility] Chronic Pain Care Plan Chronic Care Management Worsening( 2:58 PM SERVER SECURITY ADMINISTRATOR) No Viola Murphy, SARINA Note: Problem: Chronic Pain Goals: 1. Minimize further functional decline 2. Maximize quality of life 3. Control pain Strategies: - Activity/exercise program recommendation - Conservative stepwise pain medicine strategy with multi-disciplinary approach - Recommend healthy lifestyle strategies and compensatory methods as needed documented as of this encounter Visit Diagnoses Not on filedocumented in this encounter Care Teams Lan Analyst Relationship Specialty Start Date End Date Deanna, Dg, MD PCP - General 10/02/16 Xavier Frederick MD [address] [place] [address] Referring Physician Cardiology 10/02/24 documented as of this encounter
--- OUTSIDE RECORDS SUMMARY | 2024-10-11 13:17 | XMS_ITS | Encounter Summary ---
Author Organization [facility] Address [address] [place] [address] Phone Care Team Providers Care River Driver Name Role Phone Dg Huerta MD Primary Care Provider Xavier Frederick MD Unavailable [phone] Encounter Details Date Type Department Care [...] on file Legal Sex Female 12:17 AM AERIAL PHOTOGRAPH INTERPRETER Gender Identity Not on file Sexual Orientation [...] Plan Chronic Care Management Worsening( 2:58 PM AERIAL PHOTOGRAPH INTERPRETER) No Viola Murphy, SARINA Note: Problem: Chronic [...] on filedocumented in this encounter Care Teams River Driver Relationship Specialty Start Date End Date Dg Huerta MD PCP - General 10/02/16 Xavier Frederick MD [address] [place] [address] Referring Physician Cardiology 10/02/24 documented as of this encounter
--- OUTSIDE RECORDS SUMMARY | 2024-10-11 13:17 | XMS_ITS | Clinical Summary ---
Author Organization [facility] Address [address] [place] [address] Care Team Providers Care Ornamental Iron Worker Apprentice Name Role Phone None, Provider MD Primary [...] age to complete this topic Insurance LOCAL [facility] MEDICARE Care Teams Ornamental Iron Worker Apprentice Relationship Specialty Start Date End Date None, Provider, PCP - General 04/20/19
--- OUTSIDE RECORDS SUMMARY | 2024-10-11 13:17 | XMS_ITS | Encounter Summary ---
Author Organization [facility] Address [address] [place] [address] Care Team Providers Care Hearing Aid Repairer Name Role Phone Dg Huerta MD Primary Care Provider [phone] Dg Huerta MD Primary Care Provider [phone] Dg Huerta MD Primary Care Provider [phone] Xavier Frederick MD Unavailable [phone] Encounter Details Date Type Department Care Team (Late st Contact Info) Description 08/04/2016 Orders Only [facility] ProviderEtelvina MD [address] [place] [address] Social History Tobacco Use Types Packs/Day Years Used Date Smoking Tobacco: Some Days Cigarettes Last attempted to quit: 07/05/1990 Alcohol Use Standard Drinks/Week Comments No 0 (1 standard drink = 0.6 oz pur e alcohol) Comments Unknown Sex and Gender Information Value Date Recorded Sex Assigned at Not on file Legal Sex Female 12:17 AM LEAD CYTOGENETIC TECHNOLOGIST Gender Identity Not on file Sexual Orientation [...] on filedocumented in this encounter Care Teams Hearing Aid Repairer Relationship Specialty Start Date End Date Dg Huerta MD PCP - General 10/02/16 Dg Huerta MD PCP - General 08/25/16 10/01/16 Dg Huerta MD PCP - General 04/13/07 08/24/16 Xavier Frederick MD [address] [place] [address] Referring Physician Cardiology 10/02/24 documented as of this encounter
--- OUTSIDE RECORDS SUMMARY | 2024-10-11 13:17 | XMS_ITS | Clinical Summary ---
Author Organization [facility] Address [address] [place] [address] Care Team Providers Care Wire Twisting Machine Operator Name Role Phone Dg Huerta MD Primary Care Provider [phone] Source Comments [facility],non-owned Affiliates and Associated Physician Practices is amultiple site organization consisting of ambulatory clinics and hospital sitesin [place], [place], [place] and [place]. This disclosure is being madepursuant to the Care Everywhere program and may not contain all information available regarding this patient. Last updated 18.[facility] Allergies No known active allergies Immunizations Name [...] age to complete this topic Care Teams Wire Twisting Machine Operator Relationship Specialty Start Date End Date Dg Huerta MD [address] [place] [address] [facility] General 03/04/22
--- OUTSIDE RECORDS SUMMARY | 2024-10-11 13:17 | XMS_ITS | Encounter Summary ---
Author Organization [facility] Address [address] [place] [address] Phone Care Team Providers Care Assembler Handbags Name Role Phone Dg Huerta MD Primary Care Provider [phone] Xavier Frederick MD Unavailable [phone] Encounter Details Date Type Department Care [...] on file Legal Sex Female 12:17 AM PRODUCT ENGINEER Gender Identity Not on file Sexual Orientation [...] today of echo. It was downloaded to [employer] on my desk if youwant to look [...] on filedocumented in this encounter Care Teams Assembler Handbags Relationship Specialty Start Date End Date Dg Huerta MD PCP - General 10/02/16 Xavier Frederick MD [address] [place] [address] Referring Physician Cardiology 10/02/24 documented as of this encounter
--- OUTSIDE RECORDS SUMMARY | 2024-10-11 13:18 | XMS_ITS | Continuity of Care Document ---
Author Name Auto Generated, Auto Generated Organization [employer] [employer] Support Name Relationship Address Phone Okeefe, Magdiel Emergency Contact 1 [address] [place] [address] Unavailable Magdiel Okeefe Son [address] [place] [address] Unavailable Magdiel [employer] [address] [place] [address] Unavailable Ariadne Okeefe [employer] Responsible [employer] [address] [place] [address] Unavailable Ariadne Okeefe Self [address] [place] [address] Unavailable Magdiel [facility] [address] [place] [address] Unavailable Fely Okeefe [id number] [address] [place] [address] Unavailable Fely Okeefe Emergency Contact [address] [place] [address] Unavailable Summary Purpose Consult/Referral Allergies, Adverse Reactions, Alerts Type Description/Agent Code Date Allergy Active Date Allergy Inactivated Date of Last Reaction Adverse Reactions Severity Status Comments Source of Information FDB Medic ation Ingre dient nizatidine Active Patien t History FDB Medic ation Name AcipHex Active Patient History Medications No Known Medications Conditions/Problems Problem/Diagnosis Awareness of Diagnosis Code (ICD-10) Onset Date (Start Date) Resolution Date (End Date) Status Source Comments MUSCLE WEAKNESS (GENERALIZED) M62.81 08/28/19 25 Active Ramila anne MD [facility] OTHER FATIGUE R53.83 08/28/19 25 Active Ramila anne MD [place] NEED FOR ASSISTANCE WITH PERSONAL CARE Z74.1 08/28/19 25 Active Ramila anne MD [place] UNSTEADINESS ON FEET R26.81 08/28/19 25 Active Ramila anne MD [place] OTHER ABNORMALITIES OF GAIT AND MOBILITY R26.89 08/28/19 25 Active Ramila anne MD [place] ACUTE ON CHRONIC DIASTOLIC (CONGESTIVE) HEART FAILURE I50.33 02/04/20 25 Active Ramila anne MD Sanchez SPINAL STENOSIS, SITE UNSPECIFIED M48.00 08/08/19 25 Active Ramila anne MD [place] IRRITABLE BOWEL SYNDROME WITH CONSTIPATION K58.1 08/08/19 25 Active Ramila anne MD Sanchez ANEMIA, UNSPECIFIED D64.9 08/08/19 25 Active Ramila anne MD [place] ALLERGIC CONTACT DERMATITIS, UNSPECIFIED CAUSE L23.9 08/08/19 25 Active Ramila anne MD Sanchez CHRONIC DIASTOLIC (CONGESTIVE) HEART FAILURE I50.32 08/05/19 25 Active Ramila anne MD Sanchez HEART FAILURE, UNSPECIFIED I50.9 08/05/19 25 08/08/2024 Resolved Ramila anne MD Sanchez ALLERGIC RHINITIS, UNSPECIFIED J30.9 08/05/19 25 Active Ramila anne MD Sanchez CONSTIPATION, UNSPECIFIED K59.00 08/05/19 25 Active Ramila anne MD Sanchez AGE-RELATED PHYSICAL DEBILITY R54 08/05/19 25 Active Ramila anne MD [place] OTHER SYMPTOMS AND SIGNS INVOLVING THE MUSCULOSKELETAL SYSTEM R29.898 07/17/19 25 Active Ramila anne MD Sanchez PLEURAL EFFUSION, NOT ELSEWHERE CLASSIFIED J90 07/17/19 25 Active Ramila anne MD [place] HYPERTENSIVE HEART DISEASE WITH HEART FAILURE I11.0 07/17/19 25 Active Ramila anne MD Sanchez MAJOR DEPRESSIVE DISORDER, SINGLE EPISODE, UNSPECIFIED F32.9 11/02/19 24 Active Ramila anne MD Sanchez RHEUMATIC MITRAL INSUFFICIENCY I05.1 11/02/19 24 Active Ramila anne MD Sanchez DEPRESSION, UNSPECIFIED F32.A 11/02/19 24 08/07/2024 Resolved Ramila anne MD Sanchez MCC (CURRENT) USE OF ANTIMETABOLITE AGENT Z79.631 11/02/19 24 Active Ramila anne MD Sanchez POLYNEUROPATHY, UNSPECIFIED G62.9 11/02/19 24 Active Ramila anne MD Sanchez CHRONIC KIDNEY DISEASE, UNSPECIFIED N18.9 11/02/19 24 Active Ramila anne MD Sanchez PRESENCE OF PROSTHETIC HEART VALVE Z95.2 11/02/19 24 Active Ramila anne MD Sanchez Date NOS RHEUMATOID ARTHRITIS WITH RHEUMATOID FACTOR OF MULTIPLE SITES WITHOUT ORGAN OR SYSTEMS INVOLVEMENT M05.79 11/02/19 24 Active Ramila anne MD Sanchez GASTRO-ESOPHAGEAL REFLUX DISEASE WITHOUT ESOPHAGITIS K21.9 11/02/19 24 Active Ramila anne MD Sanchez PULMONARY FIBROSIS, UNSPECIFIED J84.10 11/02/19 24 Active Ramila anne MD Sanchez FIBROMYALGIA M79.7 11/02/19 24 Active Ramila anne MD Sanchez PULMONARY HYPERTENSION, UNSPECIFIED I27.20 11/02/19 24 Active Ramila anne MD Sanchez ESSENTIAL (PRIMARY) HYPERTENSION I10 11/02/19 24 Active Ramila anne MD Sanchez UNSPECIFIED OSTEOARTHRITIS, UNSPECIFIED SITE M19.90 11/02/19 24 Active Ramila anne MD Sanchez ATHEROSCLEROTIC HEART DISEASE OF [place] CORONARY ARTERY WITHOUT ANGINA PECTORIS I25.10 11/02/19 24 Active Ramila anne MD Sanchez CHRONIC OBSTRUCTIVE PULMONARY DISEASE, UNSPECIFIED J44.9 11/02/19 24 Active Ramila anne MD Sanchez PERSONAL HISTORY OF NICOTINE DEPENDENCE Z87.891 11/02/19 24 Active Ramila anne MD Sanchez PRESENCE OF OTHER BONE AND TENDON IMPLANTS Z96.7 10/29/19 24 Active Ramila anne MD Sanchez FRACTURE OF OTHER SPECIFIED SKULL AND FACIAL BONES, RIGHT SIDE, SUBSEQUENT ENCOUNTER FOR FRACTURE WITH ROUTINE HEALING S02.81XD 10/28/19 24 08/07/2024 Resolved Ramila anne MD Sanchez MONTEGGIA'S FRACTURE OF RIGHT ULNA, SUBSEQUENT ENCOUNTER FOR CLOSED FRACTURE WITH ROUTINE HEALING S52.271D 10/28/19 24 08/07/2024 Resolved Ramila anne MD Sanchez UNSPECIFIED INTRACRANIAL INJURY WITH LOSS OF CONSCIOUSNESS OF UNSPECIFIED DURATION, SUBSEQUENT ENCOUNTER S06.9X9D 10/28/19 24 08/07/2024 Resolved Ramila anne MD Sanchez FALL ON SAME LEVEL, UNSPECIFIED, SUBSEQUENT ENCOUNTER W18.30XD 10/28/19 24 08/07/2024 Resolved Ramila anne MD Sanchez BENT BONE OF RIGHT ULNA, SUBSEQUENT ENCOUNTER FOR CLOSED FRACTURE WITH ROUTINE HEALING S52.281D 10/28/19 24 08/07/2024 Resolved Ramila anne MD Sanchez UNSPECIFIED INJURY OF HEAD, SUBSEQUENT ENCOUNTER S09.90XD 10/28/19 24 08/07/2024 Resolved Ramila anne MD Sanchez DISPLACED COMMINUTED FRACTURE OF SHAFT OF ULNA, RIGHT ARM, SUBSEQUENT ENCOUNTER FOR CLOSED FRACTURE WITH ROUTINE HEALING S52.251D 10/28/19 24 08/07/2024 Resolved Ramila anne MD Sanchez PERSONAL HISTORY OF (HEALED) TRAUMATIC FRACTURE Z87.81 10/28/19 24 Active Ramila anne MD Sanchez UNSPECIFIED FRACTURE OF UPPER END OF RIGHT RADIUS, SUBSEQUENT ENCOUNTER FOR CLOSED FRACTURE WITH ROUTINE HEALING S52.101D 10/28/19 24 08/07/2024 Resolved Ramila anne MD Sanchez MYALGIA, UNSPECIFIED SITE M79.10 10/28/19 24 08/07/2024 Resolved Ramila anne MD Sanchez ACUTE PAIN DUE TO TRAUMA G89.11 10/28/19 24 08/07/2024 Resolved Ramila anne MD Sanchez Procedures No Known Procedures
--- OUTSIDE RECORDS SUMMARY | 2024-10-11 13:18 | XMS_ITS | Clinical Summary ---
Author Organization [facility] Address [address] [place] [address] Care Team Providers Care Finisher Plate Name Role Phone Dg Huerta MD Primary Care Provider Xavier Frederick MD Unavailable [phone] Allergies Active Allergy Reactions Criticality Noted [...] management - Sinus precautions, HOB elevated - Burnet nasal spray - ice packs prn - [...] (10/31/2023 11:21 AM CDT): - Orencia 750mg x1ousbj [last dose 10/19] Psoriasis 11/18/2013 Overview (10/09/2016): [...] Type Department Care Team Description 10/09/2024 Telephone [facility] [address] [place] [address] [place] [address] Jacinto Reilly 10/02/2024 Telephone [facility] [address] 8th [place] [address] [place] [address] Xavier Frederick MD Scheduling Appointments 09/27/2024 Telephone [facility] [address] [place] [address] Advanced Medicine 8th [place] [address] [place] [address] Xavier Frederick MD Test Results 09/21/2024 4:39 PM CDT - 09/21/2024 11:59 PM CDT Hospital Encounter [facility] [address] [place] [address] Discharge Disposition: Discharge to home or self care 09/19/[address]th [place] [address] [place] [address] Xavier Frederick MD 09/14/2024 7:49 PM CDT - 09/14/2024 11:59 PM CDT Hospital Encounter [address] [phone] Discharge Disposition: Discharge to home or self care 09/12/2024 2:30 PM CDT Office Visit [facility] [address] [place] [address] Medical Office Building [address] [place] [phone] Xavier Frederick MD S/P MVR (mitral valve replacement) (Primary Dx); Heart valve disorder; Shortness of breath 09/12/2024 Results Follow-Up [facility] [address] [place] [address] Medical Office Building [address] [place] [phone] Xavier Frederick MD 08/18/2024 Telephone [facility] [address] [place] [address] Advanced Medicine 8th [place] [address] [place] [address] Yecenia Dunn 07/19/2024 Orders Only [facility] IM [...] on file Legal Sex Female 12:17 AM PLANNING DIVISION SUPERINTENDENT Gender Identity Not on file Sexual Orientation [...] 36.6 C (97.8 F) 06/29/2024 11:58 AM PLANNING DIVISION SUPERINTENDENT Respiratory Rate 16 06/29/2024 6:30 PM PLANNING DIVISION SUPERINTENDENT Oxygen Saturation 93% 09/12/2024 3:14 PM CDT [...] Plan Chronic Care Management Worsening( 2:58 PM PLANNING DIVISION SUPERINTENDENT) No Viola Murphy RN Note: Problem: Chronic Pain Goals: 1. Minimize further functional decline 2. Maximize quality of life 3. Control pain Strategies: - Activity/exercise program recommendation - Conservative stepwise pain medicine strategy with multi-disciplinary approach - Recommend healthy lifestyle strategies and compensatory methods as needed Medical Devices Implanted Type Area Telegraph Mechanic Device Identifier Shelf Expiration Date Model / Serial / Lot [employer]/ Ortho Plate Evos 2.7mm/3.5mm Olecranon W/ Tines 7h R 114mm [id number] - [id number] Implanted:Qty: 1 on 10/29/2023 by Dee Meyer MD at [facility] Right: Forearm [employer]/O rtho [id number] / / [employer]/ Ortho 2.7mm 4.3mm 55mm Lock Self Retain Flat Head Long Bone Small Bone [id number] - [id number] Implanted:Qty: 1 on 10/29/2023 by Dee Meyer MD at [facility] Right: Forearm [employer]/O rtho [id number] / / Bundle Inc Evolve 20mm Modular Elbow Standard Head Radial Proline 496-H020 - [id number] Implanted:Qty: 1 on 10/29/2023 by Dee Meyer MD at [facility] Right: Forearm Bundle Inc [id number] 04/06/2031 496-H020 / / [id number] [employer] Evolve 7.5mm Head System Smooth Elbow +4mm Stem Radial Proline [id number] - [id number] Implanted:Qty: 1 on 10/29/2023 by Dee Meyer MD at [facility] Right: Forearm Bundle Inc 11/18/2028 [id number] / / [id number] [employer]Rich[employer]/ Ortho Evos 3.5mm 22mm Self Tap Cortex Screw Bone Sterile [id number] - [id number] Implanted:Qty: 1 on 10/29/2023 by Dee Meyer MD at [facility] Right: Forearm [employer]/O rtho [id number] / / [employer]/ Ortho Evos 3.5mm 18mm Self Tap Cortex Screw Bone Sterile [id number] - [id number] Implanted:Qty: 1 on 10/29/2023 by Dee Meyer MD at [facility] Right: Forearm [employer]/O rtho [id number] / / [employer]/ Ortho Evos 3.5mm 14mm Self Tap Cortex Screw Bone Sterile [id number] - [id number] Implanted:Qty: 1 on 10/29/2023 by Dee Meyer MD at [facility] Right: Forearm [employer]/O rtho [id number] / / [employer]/ Ortho Evos 2.7mm 4.5mm 16mm Self Tap Cortex T8 Screw Bone Mini Plate [id number] - [id number] Implanted:Qty: 1 on 10/29/2023 by Dee Meyer MD at [facility] Right: Forearm [employer]/O rtho [id number] / / [employer]/ Ortho 2.7mm 4.5mm 80mm Self Retaining Screwdriver Self Tap Flat Head [id number] - [id number] Implanted:Qty: 1 on 10/29/2023 by Dee Meyer MD at [facility] Right: Forearm [employer]/O rtho [id number] / / [employer]/ Ortho Evos 3.5mm 24mm Self Tap Lock Screw Bone Sterile [id number] - [id number] Implanted:Qty: 1 on 10/29/2023 by Dee Meyer MD at [facility] Right: Forearm [employer]/O rtho [id number] / / Explanted Type Area Telegraph Mechanic Device Identifier Shelf Expiration Date Model / Serial / Lot [employer]Rich[employer] /Ortho Evos 3.5mm 24mm Self Tap Cortex Screw Bone Sterile [id number] - [id number] Explanted:Qty : 1 on 10/29/2023 by Dee Meyre MD at [facility] Right: Forearm [employer]/Or tho [id number] / / [employer] /Ortho Evos Mini 2.7mm 4.5mm 80mm Self Tap Cortex T8 Screw Bone [id number] - [id number] Explanted:Qty : 1 on 10/29/2023 by Dee Meyer MD at [facility] Right: Forearm [employer]/Or tho [id number] / / Procedures Procedure Name Priority Date/Time [...] Read Routine (OP Routine) 07/19/2023 1:50 PM PLANNING DIVISION SUPERINTENDENT Screening mammogram, encounter for DEXA AXIAL SKELETON [...] only and have not been reviewed by [facility]. There will be no report generated by a [facility] Radiologist. Narrative RAD_PACS_BJ - 09/21/2024 4:39 PM [...] MD LAB BLOOD ORDERABLES Fin al Result [facility] [address] Department [place] [address] * (ABNORMAL) Differential, auto (09/14/2024 2:42 PM CDT) Neutrophil abs 7.7(H) 1.5 - 6.5 K/cumm Imm gran abs 0.1 0.0 - 0.1 K/cumm [facility] Lymphocyte abs 1.3 0.8 - 3.3 K/cumm [facility] Monocyte abs 0.8 0.2 - 0.8 K/cumm [facility] Eosinophil abs 0.2 0.0 - 0.5 K/cumm [facility] Basophil abs 0.1 0.0 - 0.1 K/cumm [facility] Neutrophil pct 76.3 % [facility] Comment: Interpretive Data Percent cell count reference ranges are not reported, since discordance with absolute values may lead to misinterpretation of CBC data. Current Interpretive Data was last revised on 2017. Imm gran pct 0.5 % [facility] Comment: Interpretive Data Percent cell count reference ranges are not reported, since discordance with absolute values may lead to misinterpretation of CBC data. Current Interpretive Data was last revised on 2017. Lymphocyte pct 12.5 % [facility] Comment: Interpretive Data Percent cell count reference ranges are not reported, since discordance with absolute values may lead to misinterpretation of CBC data. Current Interpretive Data was last revised on 2017. Monocyte pct 8.3 % [facility] Comment: Interpretive Data Percent cell count reference ranges are not reported, since discordance with absolute values may lead to misinterpretation of CBC data. Current Interpretive Data was last revised on 2017. Eosinophil pct 1.6 % [facility] Comment: Interpretive Data Percent cell count reference ranges are not reported, since discordance with absolute values may lead to misinterpretation of CBC data. Current Interpretive Data was last revised on 2017. Basophil pct 0.8 % [facility] Comment: Interpretive Data Percent cell count reference ranges are not reported, since discordance with absolute values may lead to misinterpretation of CBC data. Current Interpretive Data was last revised on 2017. Blood 09/14/2024 2:42 PM CDT 09/14/2024 8:29 PM CDT us Eleazar Khan MD LAB BLOOD ORDERABLES Fin al Result [facility] [address] Department [place] [address] * (ABNORMAL) CBC with auto differential (09/14/2024 2:42 PM CDT) WBC 10.1(H) 3.8 - 9.9 K/cumm Hgb 13.9 11.9 - 15.5 g/dL [facility] Hct 42.2 35.6 - 45.5 % [facility] Plt 287 150 - 400 K/cumm [facility] MPV 10.2 9.1 - 12.3 fL [facility] RBC 4.95 3.90 - 5.20 M/cumm [facility] MCV 85.3 81.3 - 96.4 fL [facility] MCH 28.1 27.1 - 33.3 pg [facility] MCHC 32.9 32.3 - 35.7 g/dL [facility] RDW CV 16.2(H) 11.1 - 14.9 % [facility] RDW SD 48.8(H) 35.7 - 48.1 fL [facility] NRBC abs 0.00 0.00 - 0.01 K/cumm [facility] Blood 09/14/2024 2:42 PM CDT 09/14/2024 8:29 PM CDT Eleazar Khan MD LAB BLOOD ORDERABLES Fin al Result Performing Organization Address City/[facility] Co de Phone Number [facility] [address] [facility] [email or web address] [address] * (ABNORMAL) Creatinine (09/14/2024 2:42 PM CDT) Creatinine 1.43(H) 0.60 - 1.10 mg/dL Blood 09/14/2024 2:42 PM CDT 09/14/2024 8:29 PM CDT Eleazar Khan MD LAB BLOOD ORDERABLES Fin al Result Performing Organization Address [facility] de Phone Number [facility] [address] [facility] [email or web address] [address] * (ABNORMAL) Hepatic function panel (09/14/2024 2:42 PM CDT) Bilirubin, total 1.0 0.1 - 1.2 mg/dL Bilirubin, direct 0.5(H) 0.1 - 0.3 mg/dL [facility] Protein, pl 8.1 6.5 - 8.5 g/dL [facility] Albumin 4.2 3.5 - 5.0 g/dL [facility] Alk phos 58 40 - 130 Units/L [facility] ALT 12 7 - 45 Units/L [facility] AST 27 10 - 45 Units/L [facility] Blood 09/14/2024 2:42 PM CDT 09/14/2024 8:29 PM CDT Eleazar Khan MD LAB BLOOD ORDERABLES Fin al Result Performing Organization Address [facility] Co de Phone Number [facility] [address] [facility] [email or web address] [address] * ECG 12 lead (09/12/2024 3:06 PM [...] Mammogram Bilateral W Carlos (07/19/2023 1:50 PM PLANNING DIVISION SUPERINTENDENT) Anatomical Region Laterality Modality Breast Bilateral Mammography Narrative 07/19/2023 2:22 PM PLANNING DIVISION SUPERINTENDENT Examination: Screening Mammogram Bilateral W Carlos: 07/19/23 [...] bone density.. DXA BMD was done at [facility] on a Hologic Discovery CI. Precision [...] bone density.. DXA BMD was done at [facility] on a Hologic Discovery CI. Precision [...] Maintenance Insurance LOCAL [address] [facility] SUPPLEMENT MEDICARE MEDICARE LOCAL [address] [facility] SUPPLEMENT MEDICARE COMMERCIAL GENERIC Advance Directives For more information, please contact: [phone] * Full Code (Latest Code Status on File) Date Activated Date Inactivated Comments 10/29/2023 3:27 PM 11/03/2023 12:45 AM * Full Code Date Activated Date Inactivated Comments 10/29/2023 1:01 AM 10/29/2023 3:27 PM * Full Code Date Activated Date Inactivated Comments 01/08/2021 12:21 PM 01/09/2021 4:50 AM Care Teams Finisher Plate Relationship Specialty Start Date End Date Dg Huerta MD PCP - General 10/02/16 Xavier Frederick MD [address] [facility] [address] [place] [address] Referring Physician Cardiology 10/02/24
--- OUTSIDE RECORDS SUMMARY | 2024-10-11 13:18 | XMS_ITS | Encounter Summary ---
Author Organization [facility] Healthcare Address [address] [place] [address] Care Team Providers Care New Order Clerk Name Role Phone Dg Huerta MD Primary Care Provider [phone] Xavier Frederick MD Unavailable [phone] Encounter Details Date Type Department Care Team (Late st Contact Info) Description 04/20/2023 Telephone [facility] [address] [facility] [address] [place] [address] Dg Huerta MD [address] [place] [address] Social History Tobacco Use Types Packs/Day Years Used Date Smoking Tobacco: Former Cigarettes 1 58.3 S tarted: 1967 Smokeless Tobacco: Never Alcohol Use Standard Drinks/Week Comments Yes 0 (1 standard drink = 0.6 oz pur e alcohol) occassional Comments No Sex and Gender Information Value Date Recorded Sex Assigned at Not on file Legal Sex Female 12:17 AM BRANCHER Gender Identity Not on file Sexual Orientation [...] orders or changes made to medication regimen. [facility] Chronic Pain Care Plan Chronic Care Management Worsening( 2:58 PM BRANCHER) Viola Parkinson RN Note: Problem: Chronic Pain Goals: 1. Minimize further functional decline 2. Maximize quality of life 3. Control pain Strategies: - Activity/exercise program recommendation - Conservative stepwise pain medicine strategy with multi-disciplinary approach - Recommend healthy lifestyle strategies and compensatory methods as needed documented as of this encounter Visit Diagnoses Not on filedocumented in this encounter Care Teams New Order Clerk Relationship Specialty Start Date End Date Dg Huerta MD PCP - General 10/02/16 Xavier Frederick MD [address] [place] [address] Referring Physician Cardiology 10/02/24 documented as of this encounter
--- OUTSIDE RECORDS SUMMARY | 2024-10-11 13:18 | XMS_ITS | Encounter Summary ---
Author Organization [facility] Address [address] [place] [address] Phone Care Team Providers Care [facility] Shift Lead Name Role Phone Dg Huerta MD Primary Care Provider [phone] Xavier Frederick MD Unavailable [phone] Encounter Details Date Type Department Care Team (Late st Contact Info) Description 09/19/2024 Telephone [facility] [address] [facility] Advanced Medicine 8th [place] [address] [place] [phone] Xavier Frederick MD [address] [facility] [address] [place] [address] Social History Tobacco Use Types [...] on file Legal Sex Female 12:17 AM ACCREDITATION SPECIALIST Gender Identity Not on file Sexual Orientation Not on file documented as of this encounter Miscellaneous Notes * Telephone Encounter - MagalisNina samuel - 09/19/2024 2:15 PM CDT [facility] calling to state that they received the records request and mailed them on 09/14. documented in this encounter Plan of Treatment Not on file documented as of this encounter Goals Goal Patient Goal Type Associated Problems Recent Progress Patient-Stated? Author YONSI General Goal - Patient schedules and keeps [...] orders or changes made to medication regimen. [facility] Chronic Pain Care Plan Chronic Care Management Worsening( 2:58 PM ACCREDITATION SPECIALIST) No Viola Murphy RN Note: Problem: Chronic Pain Goals: 1. Minimize further functional decline 2. Maximize quality of life 3. Control pain Strategies: - Activity/exercise program recommendation - Conservative stepwise pain medicine strategy with multi-disciplinary approach - Recommend healthy lifestyle strategies and compensatory methods as needed documented as of this encounter Visit Diagnoses Not on filedocumented in this encounter Care Teams [facility] Shift Lead Relationship Specialty Start Date End Date Dg Huerta MD PCP - General 10/02/16 Xavier Frederick MD [address] [place] [address] Referring Physician Cardiology 10/02/24 documented as of this encounter
--- OUTSIDE RECORDS SUMMARY | 2024-10-11 13:18 | XMS_ITS | Encounter Summary ---
Author Organization [facility] Address [address] [place] [address] Phone Care Team Providers Care Blending Tank Helper Name Role Phone Dg Huerta MD Primary Care Provider [phone] Xavier Frederick MD Unavailable [phone] Encounter Details Date Type Department Care Team (Late st Contact Info) Description 09/12/2024 Results Follow-Up [facility] Cardiology [address] [facility] [address] [place] [address] Xavier Frederick MD [address] [address] Social History Tobacco Use Types [...] on file Legal Sex Female 12:17 AM STADIUM MANAGER Gender Identity Not on file Sexual Orientation [...] Plan Chronic Care Management Worsening( 2:58 PM STADIUM MANAGER) No Viola Murphy RN Note: Problem: Chronic Pain Goals: 1. Minimize further functional decline 2. Maximize quality of life 3. Control pain Strategies: - Activity/exercise program recommendation - Conservative stepwise pain medicine strategy with multi-disciplinary approach - Recommend healthy lifestyle strategies and compensatory methods as needed documented as of this encounter Visit Diagnoses Not on filedocumented in this encounter Care Teams Blending Tank Helper Relationship Specialty Start Date End Date Dg Huerta MD PCP - General 10/02/16 Xavier Frederick MD [address] [place] [address] Referring Physician Cardiology 10/02/24 documented as of this encounter
--- OUTSIDE RECORDS SUMMARY | 2024-10-11 13:18 | XMS_ITS ---
Author Name [facility] Bar[facility] Address [address] [place] [address] Phone [phone] Organization [facility] Address [address] [place] [address] Phone [phone] Care Team Providers Care Food Beverage Supervisor Name Role Phone Jessi Taveras Angle Unavailable [phone] Unavailable [phone] Kaycee Sena Unavailable Lesly Corcoran Unavailable [phone] Eleazar Khan Unavailable Functional Status No Results Mental Status No Results Allergies and Intolerances Name Onset Date Reaction Severity nizatidine (Allergy) WedNov 01 23:36:00 EDT AcipHex (Allergy) WedNov 01 23:35:00 EDT 2023 Encounters Program Name Primary Diagnosis Admission Date/Time Dis charge Date/Time [facility] WedAug 05 04:45:00 EST 2024Aug 21 06:45:00 EST 2024 Rehabilitation Clinic Sun Aug 27 19:00:00 EST 2024 [facility] Facility Nursing Home-[facility] Term Rehabilitation Unit WedNov 01 17:00:00 EDT 2023November 26 07:00:00 EDT 2023 Assisted Living Area Hypertensive heart disease with heart failure WedAug 21 06:50:00 EST 2024 Immunizations Name Dates Status TST-PPD intradermal WedNovember 02 01:00:00 EDT 2023 Completed TST-PPD intradermal WedNovember 04:00:00 EDT 2023 Completed TST-PPD intradermal WedNovember 09:00:00 EDT 2023 Completed TST-PPD intradermal Tue Aug [...] COATED) Oral 1 Time Daily Indication: depression BREAD DISTRIBUTOR supervision x1 WedSep 19 01:00:00 EDT 2024 [...] Or al 3 Times Weekly Indication: CHF BREAD DISTRIBUTOR supervision X1 WedSep 01 01:00:00 EST 2024Sep 11 10:28:00 EDT 2024 colchicine 0.6 mg tablet 2 tab TABLET Or al 1 Time Daily for 1 Day Indication: Gout BREAD DISTRIBUTOR Supervision WedSep 01 10:00:00 EST 2024Sep 02 09:59:00 EST 2024 colchicine 0.6 mg tablet 1 TABLET Oral 1 Time Daily for 1 Day Indication: Gout BREAD DISTRIBUTOR supervision WedSep 01 11:00:00 EST 2024Sep 02 10:59:00 EST 2024 allopurinoL 100 mg tablet 1 tab TABLET O ral 1 Time Daily Indication: gout BREAD DISTRIBUTOR supervision X1 WedSep 01 01:00:00 EST 2024 [...] TABLET Oral 2 Times Daily Indication: Edema BREAD DISTRIBUTOR Supervision X 1 X 3 WedAug 27 12:34:00 EST 2024 Blood Pressure Kit n/a KIT Other 2 Time s Daily for 7 Days Indication: BREAD DISTRIBUTOR VitalsCNA supervision X 1 X 3 WedAug 23 01:00:00 EST 2024Aug 30 00:59:00 EST 2024 Blood Pressure Kit n/a KIT Other 2 Time s Monthly Indication: BREAD DISTRIBUTOR Vitals Indication: BREAD DISTRIBUTOR Vitals WedAug 23 01:00:00 EST 2024 hydrOXYzine [...] TABLET Oral 1 Time Weekly Indication: Athritis BREAD DISTRIBUTOR supervision X 1 WedAug 21 13:00:00 EST [...] Time s Daily for 7 Days Indication: BREAD DISTRIBUTOR VitalsCNA supervision X 1 X 3 WedAug [...] Monthly Indication: RA Pt will go to [facility] outpatient for infusion. 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 * [id number] Ariadne receives a therapeutic diet. (12)* Code: * Start Date: WedAug 14 00:00:00 2024 * End Date: * Text: [id number] Ron receives a therapeutic diet. (12) * [...] EDT 2025 Diastolic Blood Pressure 59.00 mm[Hg] [facility] Oct 07 22:28:40 EDT 2024 Body weight 167.40 [lb_av] [facility] Oct 07 22:28 :40 EDT 2024 Heart Rate 69.00 /min [facility] Oct 07 22:28 :40 EDT 2024 Body temperature 98.20 [degF] [facility] Oct 07 22:2 8:40 EDT 2024 Respiratory rate 18.00 /min [facility] Oct 07 22:2 8:40 EDT 2024 Pulse Oximetry 98.00 % [facility] Oct 07 22:28 :40 EDT 2024 [...] :13 EST 2024 Body temperature 97.60 [degF] [facility] Feb 17 10:5 0:13 EST 2024 Respiratory rate 18.00 /min Wed Feb 17 10:5 0:13 EST 2024 Pulse Oximetry 93.00 % Wed Feb 17 10:50 :13 EST 2024 Systolic Blood Pressure 134.00 mm[Hg] Wed Feb 17 01:00:00 EST 2024 Diastolic Blood Pressure 65.00 mm[Hg] Wed Feb 17 01:00:00 EST 2024 Heart Rate 75.00 /min [facility] Feb 17 01:00 :00 EST 2024 Body weight 187.00 [lb_av] Wed Feb 17 01:00 :00 EST 2024 Body temperature 98.10 [degF] [facility] Feb 17 01:0 0:00 EST 2024 Respiratory rate 18.00 /min Wed Feb 17 01:0 0:00 EST 2024 Pulse Oximetry 96.00 % Wed Feb 17 01:00 :00 EST 2024 Body Height 69.00 [in_i] Wed Feb 17 01:00 :00 EST 2024 Systolic Blood Pressure 133.00 mm[Hg] [facility] Feb 17 00:12:44 EST 5 Diastolic Blood Pressure 61.00 mm[Hg] [facility] Feb 17 00:12:44 EST 2024 Heart Rate [...] :07 EST 2024 Body temperature 97.60 [degF] [facility] Aug 06 08:4 9:07 EST 2024 Respiratory rate 18.00 /min [facility] Aug 06 08:4 9:07 EST 2024 Pulse Oximetry 93.00 % [facility] Aug 06 08:49 :07 EST 2024 Systolic Blood Pressure 127.00 mm[Hg] [facility] Aug 06 00:52:34 EST 2024 Diastolic Blood Pressure 62.00 mm[Hg] [facility] Aug 06 00:52:34 EST 2024 Heart Rate 69.00 /min [facility] Aug 06 00:52 :34 EST 2024 Body temperature 98.20 [degF] [facility] Aug 06 00:5 2:34 EST 2024 Respiratory rate 20.00 /min [facility] Aug 06 00:5 2:34 EST 2024 Pulse Oximetry 93.00 % [facility] Aug 06 00:52 :34 EST 2024 Systolic Blood Pressure 123.00 mm[Hg] [facility] Aug 05 11:28:00 EST 2024 Diastolic Blood Pressure 53.00 mm[Hg] [facility] Aug 05 11:28:00 EST 2024 Heart Rate 68.00 /min [facility] Aug 05 11:28 :00 EST 2024 Body temperature 97.40 [degF] [facility] Aug 05 11:2 8:00 EST 2024 Respiratory rate 18.00 /min [facility] Aug 05 11:2 8:00 EST 2024 Pulse Oximetry 92.00 % [facility] Aug 05 11:28 :00 EST 2024 Systolic Blood Pressure 120.00 mm[Hg] [facility] November 26 09:29:30 EDT 2023 Diastolic [...]
--- OUTSIDE RECORDS SUMMARY | 2024-10-11 13:18 | XMS_ITS | Referral Summary ---
Author Organization [facility] Address [address] [place] [address] Care Team Providers Care Research Physicist Name Role Phone Dg Huerta MD Primary Care Provider Xavier Frederick MD Unavailable Encounters Date Type Department Care Team Description 10/09/2024 Telephone [facility] Cardiology [address] [place] [address] Advanced Medicine 8th [place] [address] [place] [address] Jacinto Reilly 10/02/[address] Advanced Medicine 8th [place] [address] [place] [address] Xavier Frederick MD Scheduling Appointments 09/27/[address] Advanced Medicine 8th [place] [address] [place] [address] Xavier Frederick MD Test Results 09/21/2024 4:39 PM CDT - 09/21/2024 11:59 PM CDT Hospital Encounter [facility] [address] [place] [address] Discharge Disposition: Discharge to home or self care 09/19/2024 Telephone [facility] Cardiology [address] [place] [address] Advanced Medicine 8th [place] [address] [place] [address] Xavier Frederick MD 09/14/2024 7:49 PM CDT - 09/14/2024 11:59 PM CDT Hospital Encounter [address] [place] [address] Discharge Disposition: Discharge to home or self care 09/12/2024 Results Follow-Up [facility] Cardiology [address] [facility] [address] [place] [address] Xavier Frederick MD 09/12/2024 2:30 PM CDT Office Visit [facility] Cardiology [address] [facility] [address] [place] [address] Xavier Frederick MD S/P MVR (mitral valve replacement) (Primary Dx); Heart valve disorder; Shortness of breath 08/18/2024 Telephone [facility] Cardiology [address] [facility] 8th [place] [address] [place] [address] Yecenia Dunn 07/19/2024 Orders Only [...] management - Sinus precautions, HOB elevated - [place] nasal spray - ice packs prn - [...] (10/31/2023 11:21 AM CDT): - Orencia 750mg [id number] [last dose 10/19] Psoriasis 11/18/2013 Overview (10/09/2016): [...] on file Legal Sex Female 12:17 AM SOLUTIONS ARCHITECT CONSULTANT Gender Identity Not on file Sexual Orientation Not on file Last Filed Vital Signs Vital Sign Reading Time Taken Comments Blood Pressure 122/60 09/12/2024 3:14 PM CDT Lef t arm Pulse 76 09/12/2024 3:14 PM CDT Temperature 36.6 C (97.8 F) 06/29/2024 11:58 AM SOLUTIONS ARCHITECT CONSULTANT Respiratory Rate 16 06/29/2024 6:30 PM SOLUTIONS ARCHITECT CONSULTANT Oxygen Saturation 93% 09/12/2024 3:14 PM CDT [...] Plan Chronic Care Management Worsening( 2:58 PM SOLUTIONS ARCHITECT CONSULTANT) No Viola Murphy RN Note: Problem: Chronic Pain Goals: 1. Minimize further functional decline 2. Maximize quality of life 3. Control pain Strategies: - Activity/exercise program recommendation - Conservative stepwise pain medicine strategy with multi-disciplinary approach - Recommend healthy lifestyle strategies and compensatory methods as needed Medical Devices Implanted Type Area Machinery Repair Maintenance Supervisor Device Identifier Shelf Expiration Date Model / Serial / Lot [employer]/ Ortho Plate Evos 2.7mm/3.5mm Olecranon W/ Tines 7h R 114mm [id number] - [id number] Implanted:Qty: 1 on 10/29/2023 by Dee Meyer MD at [facility] Right: Forearm [employer]/O rtho [id number] / / [employer]/ Ortho 2.7mm 4.3mm 55mm Lock Self Retain Flat Head Long Bone Small Bone [id number] - [id number] Implanted:Qty: 1 on 10/29/2023 by Dee Meyer MD at [facility] Right: Forearm [employer]Rich[employer]/O rtho [id number] / / [employer] Evolve 20mm Modular Elbow Standard Head Radial Proline 496-H020 - [id number] Implanted:Qty: 1 on 10/29/2023 by Dee Meyer MD at [facility] Right: Forearm [employer] [id number] 04/06/2031 496-H020 / / [id number] [employer] Evolve 7.5mm Head System Smooth Elbow +4mm Stem Radial Proline [id number] - [id number] Implanted:Qty: 1 on 10/29/2023 by Dee Meyer MD at [facility] Right: Forearm [employer] 11/18/2028 [id number] / / [id number] [employer]/ Ortho Evos 3.5mm 22mm Self Tap Cortex Screw Bone Sterile [id number] - [id number] Implanted:Qty: 1 on 10/29/2023 by Dee Meyer MD at [facility] Right: Forearm [employer]/O rtho [id number] / / [employer]/ Ortho Evos 3.5mm 18mm Self Tap Cortex Screw Bone Sterile [id number] - [id number] Implanted:Qty: 1 on 10/29/2023 by Dee Meyer MD at [facility] Right: Forearm [employer]/O rtho [id number] / / [employer]/ Ortho Evos 3.5mm 14mm Self Tap Cortex Screw Bone Sterile [id number] - [id number] Implanted:Qty: 1 on 10/29/2023 by Dee Meyer MD at [facility] Right: Forearm [employer]/O rtho [id number] / / [employer]/ Ortho Evos 2.7mm 4.5mm 16mm Self Tap Cortex T8 Screw Bone Mini Plate [id number] - [id number] Implanted:Qty: 1 on 10/29/2023 by Dee Meyer MD at [facility] Right: Forearm [employer]/O rtho [id number] / / [employer]/ Ortho 2.7mm 4.5mm 80mm Self Retaining Screwdriver Self Tap Flat Head [id number] - [id number] Implanted:Qty: 1 on 10/29/2023 by Dee Meyer MD at [facility] Right: Forearm [employer]/O rtho [id number] / / [employer]/ Ortho Evos 3.5mm 24mm Self Tap Lock Screw Bone Sterile [id number] - [id number] Implanted:Qty: 1 on 10/29/2023 by Dee Meyer MD at [facility] Right: Forearm [employer]/O rtho [id number] / / Explanted Type Area Machinery Repair Maintenance Supervisor Device Identifier Shelf Expiration Date Model / Serial / Lot [employer] /Ortho Evos 3.5mm 24mm Self Tap Cortex Screw Bone Sterile [id number] - [id number] Explanted:Qty : 1 on 10/29/2023 by Dee Meyer MD at [facility] Right: Forearm [employer]/Or tho [id number] / / [employer] /Ortho Evos Mini 2.7mm 4.5mm 80mm Self Tap Cortex T8 Screw Bone [id number] - [id number] Explanted:Qty : 1 on 10/29/2023 by Dee Meyer MD at [facility] Right: Forearm [employer]/Or tho [id number] / / Procedures Procedure Name Priority Date/Time [...] Read Routine (OP Routine) 07/19/2023 1:50 PM SOLUTIONS ARCHITECT CONSULTANT Screening mammogram, encounter for DEXA AXIAL SKELETON BONE DENSITY 1 OR MORE SITES Schedule Routine, Read Routine (OP Routine) 12/22/2021 1:25 PM CDT Genitourinary syndrome of menopause from Last 3 Months or Most Recently Relevant to Health Maintenance Results * US Outside Reference (09/21/2024 4:39 PM CDT) Impressions [facility] - 09/21/2024 4:39 PM CDT These images are for Reference purposes only and have not been reviewed by [facility] Radiology. There will be no report generated by a [facility] Radiologist. Narrative [facility] - 09/21/2024 4:39 PM CDT [...] MD LAB BLOOD ORDERABLES Fin al Result [facility] [address] Department [place] [address] * (ABNORMAL) Differential, auto (09/14/2024 2:42 PM CDT) Neutrophil abs 7.7(H) 1.5 - 6.5 K/cumm Imm gran abs 0.1 0.0 - 0.1 K/cumm [facility] Lymphocyte abs 1.3 0.8 - 3.3 K/cumm [facility] Monocyte abs 0.8 0.2 - 0.8 K/cumm [facility] Eosinophil abs 0.2 0.0 - 0.5 K/cumm [facility] Basophil abs 0.1 0.0 - 0.1 K/cumm [facility] Neutrophil pct 76.3 % [facility] Comment: Interpretive Data Percent cell count reference ranges are not reported, since discordance with absolute values may lead to misinterpretation of CBC data. Current Interpretive Data was last revised on 2017. Imm gran pct 0.5 % [facility] Comment: Interpretive Data Percent cell count reference ranges are not reported, since discordance with absolute values may lead to misinterpretation of CBC data. Current Interpretive Data was last revised on 2017. Lymphocyte pct 12.5 % [facility] Comment: Interpretive Data Percent cell count reference ranges are not reported, since discordance with absolute values may lead to misinterpretation of CBC data. Current Interpretive Data was last revised on 2017. Monocyte pct 8.3 % [facility] Comment: Interpretive Data Percent cell count reference ranges are not reported, since discordance with absolute values may lead to misinterpretation of CBC data. Current Interpretive Data was last revised on 2017. Eosinophil pct 1.6 % [facility] Comment: Interpretive Data Percent cell count reference ranges are not reported, since discordance with absolute values may lead to misinterpretation of CBC data. Current Interpretive Data was last revised on 2017. Basophil pct 0.8 % [facility] Comment: Interpretive Data Percent cell count reference ranges are not reported, since discordance with absolute values may lead to misinterpretation of CBC data. Current Interpretive Data was last revised on 2017. Blood 09/14/2024 2:42 PM CDT 09/14/2024 8:29 PM CDT us Eleazar Khan MD LAB BLOOD ORDERABLES Fin al Result [facility] [address] Department [place] [address] * (ABNORMAL) CBC with auto differential (09/14/2024 2:42 PM CDT) WBC 10.1(H) 3.8 - 9.9 K/cumm Hgb 13.9 11.9 - 15.5 g/dL [facility] Hct 42.2 35.6 - 45.5 % [facility] Plt 287 150 - 400 K/cumm [facility] MPV 10.2 9.1 - 12.3 fL [facility] RBC 4.95 3.90 - 5.20 M/cumm [facility] MCV 85.3 81.3 - 96.4 fL [facility] MCH 28.1 27.1 - 33.3 pg [facility] MCHC 32.9 32.3 - 35.7 g/dL [facility] RDW CV 16.2(H) 11.1 - 14.9 % [facility] RDW SD 48.8(H) 35.7 - 48.1 fL [facility] NRBC abs 0.00 0.00 - 0.01 K/cumm [facility] Blood 09/14/2024 2:42 PM CDT 09/14/2024 8:29 PM CDT Eleazar Khan MD LAB BLOOD ORDERABLES Fin al Result Performing Organization Address City/[facility] Co de Phone Number [facility] [address] [place] [address] * (ABNORMAL) Creatinine (09/14/2024 2:42 PM CDT) Creatinine 1.43(H) 0.60 - 1.10 mg/dL Blood 09/14/2024 2:42 PM CDT 09/14/2024 8:29 PM CDT Eleazar Khan MD LAB BLOOD ORDERABLES Fin al Result Performing Organization Address [facility] de Phone Number [facility] [address] [place] [address] * (ABNORMAL) Hepatic function panel (09/14/2024 2:42 PM CDT) Bilirubin, total 1.0 0.1 - 1.2 mg/dL Bilirubin, direct 0.5(H) 0.1 - 0.3 mg/dL [facility] Protein, pl 8.1 6.5 - 8.5 g/dL [facility] Albumin 4.2 3.5 - 5.0 g/dL [facility] Alk phos 58 40 - 130 Units/L [facility] ALT 12 7 - 45 Units/L [facility] AST 27 10 - 45 Units/L [facility] Blood 09/14/2024 2:42 PM CDT 09/14/2024 8:29 PM CDT Eleazar Khan MD LAB BLOOD ORDERABLES Fin al Result Performing Organization Address [facility] Co de Phone Number [facility] [address] [facility] [place] [address] * ECG 12 lead (09/12/2024 3:06 PM [...] Mammogram Bilateral W Carlos (07/19/2023 1:50 PM SOLUTIONS ARCHITECT CONSULTANT) Anatomical Region Laterality Modality Breast Bilateral Mammography Narrative 07/19/2023 2:22 PM SOLUTIONS ARCHITECT CONSULTANT Examination: Screening Mammogram Bilateral W Carlos: 07/19/23 [...] bone density.. DXA BMD was done at [facility] on a Hologic Discovery CI. Precision [...] bone density.. DXA BMD was done at [facility] on a Hologic Discovery CI. Precision [...] Insurance MEDICARE LOCAL [address] [facility] SUPPLEMENT MEDICARE MEDICARE LOCAL [address] [facility] SUPPLEMENT MEDICARE COMMERCIAL GENERIC Advance Directives For more information, please contact: [phone] * Full Code (Latest Code Status on File) Date Activated Date Inactivated Comments 10/29/2023 3:27 PM 11/03/2023 12:45 AM * Full Code Date Activated Date Inactivated Comments 10/29/2023 1:01 AM 10/29/2023 3:27 PM * Full Code Date Activated Date Inactivated Comments 01/08/2021 12:21 PM 01/09/2021 4:50 AM Care Teams Research Physicist Relationship Specialty Start Date End Date Dg Huerta MD PCP - General 10/02/16 Xavier Frederick MD [address] [facility] [address] [place] [address] Referring Physician Cardiology 10/02/24
--- OUTSIDE RECORDS SUMMARY | 2024-10-11 13:18 | XMS_ITS | Clinical Summary ---
Author Organization [facility] Address [address] [place] [address] Phone Care Team Providers Care Ip Technology Transactions Attorney Name Role Phone Unavailable Primary Care Provider [...]
--- OUTSIDE RECORDS SUMMARY | 2024-10-11 13:18 | XMS_ITS | Encounter Summary ---
Author Organization [facility] Healthcare Address [address] [place] [address] Care Team Providers Care Dope And Fabric Worker Name Role Phone Dg Huerta MD Primary Care Provider [phone] Xavier Frederick MD Unavailable [phone] Encounter Details Date Type Department Care Team (Late st Contact Info) Description 12/09/2022 Telephone [facility] Primary [facility] Medicine Clinic [address] [facility] [address] [place] [address] Dg Huerta MD [address] [place] [address] Social History Tobacco Use Types Packs/Day Years Used Date Smoking Tobacco: Former Cigarettes 1 58.3 S tarted: 1967 Smokeless Tobacco: Never Alcohol Use Standard Drinks/Week Comments Yes 0 (1 standard drink = 0.6 oz pur e alcohol) occassional Comments No Sex and Gender Information Value Date Recorded Sex Assigned at Not on file Legal Sex Female 12:17 AM REINSTATEMENT CLERK Gender Identity Not on file Sexual Orientation [...] orders or changes made to medication regimen. [facility] Chronic Pain Care Plan Chronic Care Management Worsening( 2:58 PM REINSTATEMENT CLERK) Viola Parkinson RN Note: Problem: Chronic Pain Goals: 1. Minimize further functional decline 2. Maximize quality of life 3. Control pain Strategies: - Activity/exercise program recommendation - Conservative stepwise pain medicine strategy with multi-disciplinary approach - Recommend healthy lifestyle strategies and compensatory methods as needed documented as of this encounter Visit Diagnoses Not on filedocumented in this encounter Care Teams Dope And Fabric Worker Relationship Specialty Start Date End Date Dg Huerta MD PCP - General 10/02/16 Xavier Frederick MD [address] [place] [address] Referring Physician Cardiology 10/02/24 documented as of this encounter
== END ==
LOC: ANHLAB 11:35
PROVIDERS: PCP Nurse Practitioner Adult Health; Visit Provider Nurse Practitioner Adult Health
DX: R91.1 Solitary pulmonary nodule (principal); J90 Pleural effusion, not elsewhere classified
CPT/HCPCS: 88108; 88305

== ENCOUNTER 2024-11-07 06:49 | Outpatient (CLI) | payer MEDICARE, OTHER, SELFPAY ==
--- NOTE | ~2024-11-07 | CT_ITS ---
CT Scan of the Chest without Contrast: Clinical Indication: Pleural effusion Technique: Contiguous sections were acquired throughout the chest without intravenous contrast. Dose reduction technique was used on this scan by utilizing automated exposure control and iterative recon struction technique. The dose-length product (DLP) was 167.03 mGy-cm. COMPARISON: 11/09/2022 Findings: There is no evidence of any significant mediastinal, hilar or axillary lymphadenopathy. There are ath erosclerotic calcifications of the aorta and coronary arteries. No pericardial effusion. Moderate to large loculated right pleural effusion is stable from prior exam. Stable right basilar at electatic change. There is moderate emphysema. Left lung clear. Images through the upper abdomen reveal probable splenomegaly, partially imaged. Impression: Stable moderate to large loculated right pleural effusion with right basilar atelectatic change. Moderate emphysema. Splenomegaly, partially imaged. Reviewed, dictated and finalized at [facility]. Impression: Stable moderate to large loculated right pleural effusion with right basilar at electatic change. Moderate emphysema. Splenomegaly, partially imaged.
--- OUTSIDE RECORDS SUMMARY | 2024-11-07 06:54 | XMS_ITS | Encounter Summary ---
Author Organization [facility] Address [address] [place] [address] Phone Care Team Providers Care Invoicing Machine Operator Name Role Phone Dg Huerta MD Primary Care Provider [phone] Xavier Frederick MD Unavailable [phone] Encounter Details Date Type Department Care [...] on file Legal Sex Female 12:17 AM [employer] Gender Identity Not on file Sexual Orientation [...] Plan Chronic Care Management Worsening( 2:58 PM [employer]) No Viola Murphy, SARINA Note: Problem: Chronic [...] on filedocumented in this encounter Care Teams Invoicing Machine Operator Relationship Specialty Start Date End Date gD Huerta MD PCP - General 10/02/16 Xavier Frederick MD [address] [place] [address] Referring Physician Cardiology 10/02/24 documented as of this encounter
--- OUTSIDE RECORDS SUMMARY | 2024-11-07 06:54 | XMS_ITS | Data Portability ---
Author Organization [employer] [facility] Main Office Address [address] [place] [address] Care Team Providers Care Snuff Blender Name Role Phone GCP [facility] FAX OTHER JOSELYN EDMOND Primary Care Provider Assessment Encounter Date Assessment Date Assessment LastModified by Organization Details LastModified Time 08/07/2024 08/07/2024 Add KCl 20 meq daily. Labs on 08/10 -- BMP and Mag. Nursing to request home medication list from PCP and fax to our office for review. Waiting on more records from [facility]. Not available 08/08/2024 09:49:40 08/09/2024 08/09/2024 increase mtx to 7.5 mg weekly dulcolax suppository 10 mg NE daily prn labs are ordered for AM [email or web address] Not available 08/14/2024 05:09:59 08/11/2024 08/11/2024 Monitor for need for Metolazone burst. Not available 08/14/2024 09:59:39 08/15/2024 08/15/2024 Change Dicyclomine to PRN. Labs in AM. [email or web address] Not available 08/15/2024 15:11:10 08/18/2024 08/18/2024 Pt will d/c to [facility] on 08/21 with [facility]. Recommend f/u with Dr. Xavier Frederick (cards) [...] By Organization Details Last Modified Time 08/07/2024 [id number] I spent {{ 60#}} minutes providing care to the patient today. More than 50% of that time was spent in discussing the expected course of the disease, discussing prognosis, coordinating care and counseling of the patient/family. Not available 08/08/2024 09:48:57 08/09/2024 [id number] I spent {{ >50#} } minutes providing [...] DNR [email or web address] Not available 08/14/2024 00:13:55 08/11/2024 [id number] I spent {{ 34#}} minutes providing care to the patient today. More than 50% of that time was spent in discussing the expected course of the disease, discussing prognosis, coordinating care and counseling of the patient/family. Not available 08/14/2024 10:01:44 08/15/2024 [id number] I spent {{ 36#}} minutes providing care to the patient today. More than 50% of that time was spent in discussing the expected course of the disease, discussing prognosis, coordinating care and counseling of the patient/family. [email or web address] Not available 08/15/2024 15:11:35 08/18/2024 [id number] I spent {{ 40#}} minutes providing care [...] unila teral No observ ation record ed. [email or web address] [address] [place], [address], 08/08/2024 21:14:11 08/15/19 25 08/15/2024 XR, abdom en, 1 view No observ ation record ed. [email or web address] [facility] [address] [place], [address], 08/15/2024 17:00:53 Result Notes None recorded. Procedures Surgical History Date Name Laterality Status Provider Name and Address Organization Details Recorded Time 10/04/19 24 open reduction of fracture of ulna [place] internal [place] [address] [place], [address], [facility] 08/07/2024 19:39:07 10/04/19 24 arthroplasty of head of radius completed TARA Leger, [place], [address], [facility] 08/07/2024 19:39:32 Cholecystectomy completed Kaycee Sen[place] [address], [place], [address], [facility] 08/07/2024 19:38:46 replacement of mitral valve completed Kaycee Sena, TARA [address] [facility], [place], [address], [facility] 08/07/2024 19:39:45 prosthetic arthroplasty [place] [address] [place], [address], [facility] 08/07/2024 19:40:00 ligation [place] [address] [facility], [place], [address], [facility] 08/07/2024 19:40:08 Imaging Results Imaging Date Name Status LastModified by [facility] Details LastModified Time 08/08/2024 XR, ribs, unilateral completed [email or web address] [employer] [facility] [address] [place], [address], 08/08/2024 21:14:11 08/15/2024 XR, abdomen, [address] , [place], [address], 08/15/2024 17:00:53 Procedure Notes None recorded. Medical Equipment None Reported. Allergies Allergen ID Allergen Name Allergen Category Reaction Reaction Severity Criticality Documentation Date Start Date Code Code System Note Provider Name and Address Organization Details Recorded Time 41836 nizatidin e medicatio n Not available Not available Not available 08/05/2024 16676 RxNorm Franck Carrington [facility] 23:11:07 Medications Name Sig Start Date Stop Date [...] [degF] 18 /min 93 % 93 % 56165.8 1 g 32.7 kg/m2 167.64 cm 125 mm[Hg] 59 mm[Hg] [place] [address] [place], [address], [place] [employer] [facility] 14:46:21 Date Recorded Body height Heart rate Body temperature Respiratory rate Oxygen saturation Oxygen saturation in Arterial blood by Pulse oximetry Body mass index (BMI) Body weight Systolic blood pressure Diastolic blood pressure Provider Name and Address Organization Details Last Updated DateTime 5 167.64 cm 75 /min 97.6 [degF] 18 /min 92 % 92 % 32.2 kg/m2 38333.7 6 g 131 mm[Hg] 58 mm[Hg] [place] [address] [place], [address], [place] [employer] [facility] 08:07:21 Date Recorded Body height Heart rate Body temperature Respiratory rate Oxygen saturation Oxygen saturation in Arterial blood by Pulse oximetry Body mass index (BMI) Body weight Systolic blood pressure Diastolic blood pressure Provider Name and Address Organization Details Last Updated DateTime 5 167.64 cm 81 /min 98 [degF] 18 /min 92 % 92 % 32 kg/m2 72435.7 3 g 136 mm[Hg] 60 mm[Hg] [place] [address] [place], [address], [place] [employer] [facility] 14:53:13 Date Recorded Body height Heart rate Respiratory rate Oxygen saturation Oxygen saturation in Arterial blood by Pulse oximetry Body mass index (BMI) Body weight Body temperature Systolic blood pressure Diastolic blood pressure Provider Name and Address Organization Details Last Updated DateTime 5 167.64 cm 75 /min 20 /min 93 % 93 % 31.5 kg/m2 95491.5 1 g 98.1 [degF] 140 mm[Hg] 56 mm[Hg] [place] [address] [place], [address], [place] [facility] 10:53:09 Date Recorded Body height Heart rate Body temperature Respiratory rate Oxygen saturation Oxygen saturation in Arterial blood by Pulse oximetry Body mass index (BMI) Body weight Systolic blood pressure Diastolic blood pressure Provider Name and Address Organization Details Last Updated DateTime 167.64 cm 79 /min 97.4 [degF] 20 /min 96 % 96 % 30.9 kg/m2 55574.5 8 g 132 mm[Hg] 59 mm[Hg] [place] [address] [facility], [place], [address], [place] [facility] 18:32:13 Social History Question Answer Notes LastModified by Organizat ion Details LastModified Time Tobacco Smoking Status [place] [address] [facility], [place], [address], [facility] 08/07/2024 19:21:23 What Is Your Level Of Alcohol Consumption? None Information not available 08/14/2024 What Is Your Code Status? DNR Information not available 08/05/2024 What Is Your [...] History Condition Response Osteoarthritis / DJD Y Coronary Artery Disease (CAD) Y Psychiatric -- Depression Y COPD Y Pulmonary Hypertension Y Pulmonary Fibrosis Y Valvular heart disease Y Chronic Kidney Disease (CKD) Y GERD / Reflux Y Neuropathy Y Rheumatoid Arthritis Y Fibromyalgia Y Gynecological HistoryNo gynecological history recorded. Obstetrics History GPAL:G 0 P 0 0 0 0 Past Encounters Encounter ID Performer Location Encounter Start Date Encounter Closed Date Diagnosis/Indication Diagnosis SNOMED-CT Code Diagnosis ICD10 Code Diagnosis Note [id number] Lesly Castillo DO [place] [address] [place] [address] 08/07/2024 09:27:34 08/26/2024 10:33:08 Acute on chronic diastolic heart failure 343902502 I50.33 Echo while inpatient noted normal LV [...] with Dr. Xavier Frederick (cards). Physical deconditioning 1508250744 9102 R68.89 Related to age, recent inpatient stay, and multiple comorbidit ies. Continue PT/OT and monitor progress. Goal is for pt to be placed in apartment at this facility. Continue PRN APAP for pain. No DVT prophylaxi s -- pt is ambulatory . History of mitral valve prosthesis 5758080526 9109 Z95.2 SEE ABOVE... Coronary arteriosclerosis 38061860 I25.10 No recent reports of chest pain. Not present on baby ASA, BB, or statin.Pt will need f/u with Dr. Xavier Frederick (cards). Chronic ob structive pulmonary disease 73040646 J44.9 Not on routine inhalers. Monitor for need.Robe nue PRN Ventolin.F ollowed by pulmonolog y at [facility] as OP, need to confirm name. Fibrosis of lung 5043974 1 J84.10 SEE ABOVE... Severe pul monary hypertension 064779572 I27.20 SEE ABOVE... Rheumatoid arthritis 698 [address]47 M06.9 Historical ly followed by Dr. Khan [...] with rheum Dr. Khan as OP. Fibromyalgia 916310505 M 79.7 Stable. Continue PRN APAP. Idiopathic peripheral neuropathy 13573856 G60.9 Stable. Continue PRN APAP. Spinal stenosis 33748756 M48.00 Stable. Continue PRN APAP. Major depr essive disorder 757097632 F32.9 Stable at present. Continue Duloxetine . Gastroesop hageal reflux disease without esophagitis 591393149 K21.9 Without concerns at present. Continue Omeprazole . Anemia 891278065 D64.9 Recent Hgb in 10s. Continue Folate. Irritable bowel syndrome characterized by constipation 582772660 K58.1 Constipate d at present. Continue Dicyclomin e for now. Continue Miralax and PRN cathartics . Would give suppositor y if no BM by tonight.Wolf mary closely. Allergic c ontact dermatitis 502074267 L23.9 Stable at present. Continue Cetirizine & Hydrocorti sone cream.D/C Hydroxyzin e due to non-use.Wolf mary for ability to change Cetirizine to PRN. Not for resuscitation 30 7201634 Z66 Pt is a DNR. Confirmed today. [id number] Lesly Castillo DO [address] [address] 08/09/2024 15:34:28 08/26/2024 10:35:44 Acute on chronic diastolic heart failure 136435414 I50.33 Echo while inpatient noted normal LV [...] to up to 100 mg while at [facility] but she was ultimately discharged back on her usual dose of 25 mg daily. Creatinine did bump a bit to 1.41 on 07/30 so not clear if dose reduced back down related to this.Robe nue Lasix, Spironolac tone, and KClContinu e to trend weights, labs, and edema.Comp ression present to BLE, encourage elevation at rest.Pt will need f/u with Dr. Xaveir Frederick (cards). Severe pul monary hypertension 449975870 I27.20 SEE ABOVE... History of mitral valve prosthesis 3772869811 9109 Z95.2 SEE ABOVE... Chronic ob structive pulmonary disease 95635643 J44.9 Not on routine inhalers. Monitor for need - Stiolto is on outpatient medication list but patient was not routinely using prior to recent hospitaliz ationConti nue PRN Ventolin.P reviously followed by pulmonolog y at [facility], Dr. Honey Lewis, but not seen in nearly 2 years Fibrosis of lung 5089916 1 J84.10 SEE ABOVE... Coronary arteriosclerosis 52499168 I25.10 No recent reports of chest pain. Not present on baby ASA, BB, or statin.Pt will need f/u with Dr. Xavier Frederick (cards). Rheumatoid arthritis 698 [address] Khan (rheumatol og).Incre ase MTX back to usual weekly doseShe can f/u once discharged from rehab to discuss resumption of monthly orencia infusionsC ontinue PRN APAP for pain and monitor closely. Fibromyalgia 824601812 M 79.7 Stable. Continue PRN APAP. Spinal stenosis 29227857 M48.00 Stable. Continue PRN APAP. Idiopathic peripheral neuropathy 88053308 G60.9 Stable. Continue PRN APAP. Irritable bowel syndrome characterized by constipation 882396827 K58.1 Constipate d at present. Continue Dicyclomin e and miralaxdul colax suppositor y x 1 - not available at facility this evening so MOM being given and suppositor y to be given when available - other meds available per standing orders as well Gastroesop hageal reflux disease without esophagitis 393964612 K21.9 Without concerns at present. Continue Omeprazole . Anemia 980177748 D64.9 Recent Hgb in 10s. Continue Folate and monitor CBC Major depr essive disorder 336501924 F32.9 Stable at present. Continue Duloxetine . Allergic c ontact dermatitis 286715681 L23.9 Stable at present. Continue Cetirizine & Hydrocorti sone cream.Alondra ferrara for ability to change Cetirizine to PRN. Physical deconditioning 7773271855 9102 R68.89 Related to age, recent inpatient stay, and multiple comorbidit ies.Contin ue PT/OT and monitor progress. Patient plans to d[facility]c to [facility] at this facilityCo ntinue PRN APAP for pain.No DVT prophylaxi s -- pt is ambulatory . [id number] Lesly Castillo, DO [address] [place] [address] 08/11/2024 10:07:43 08/26/2024 10:33:44 Acute on chronic diastolic heart failure 033352695 I50.33 Echo while inpatient noted normal LV [...] to up to 100 mg while at [facility] but she was ultimately discharged back on [...] Xavier Frederick (cards). Severe pul monary hypertension 471917969 I27.20 SEE ABOVE... History of mitral valve prosthesis 0054794604 9109 Z95.2 SEE ABOVE... Chronic ob structive pulmonary disease 09321199 J44.9 Not on routine inhalers. Monitor for need - Stiolto is on outpatient medication list but patient was not routinely using prior to recent hospitaliz ation.Cont inue PRN Ventolin.P reviously followed by pulmonolog y at [facility], Dr. Honey Lewis, but not seen in nearly 2 years. Fibrosis of lung 4305482 1 J84.10 SEE ABOVE... Coronary arteriosclerosis 69530625 I25.10 No recent reports of chest pain. Not present on baby ASA, BB, or statin.Pt will need f/u with Dr. Xavier Frederick (cards). Rheumatoid arthritis 698 [address] Khan (rheumatol ogy).Incre ased MTX back to usual weekly dose.She does receive monthly Orencia infusions at [facility] but she missed July's so her last infusion was in June 2024. She can f/u once discharged from rehab to discuss resumption of infusions. Continue PRN APAP for pain and monitor closely. Fibromyalgia 566592588 M 79.7 Stable. Continue PRN APAP. Spinal stenosis 59366905 M48.00 Stable. Continue PRN APAP. Idiopathic peripheral neuropathy 73163318 G60.9 Stable. Continue PRN APAP. Irritable bowel syndrome characterized by constipation 275813959 K58.1 Constipate d at present. Continue Dicyclomin e, Lactulose, Miralax, and PRN cathartics per standing orders. Gastroesop hageal reflux disease without esophagitis 536515231 K21.9 Without concerns at present. Continue Omeprazole . Anemia 038508304 D64.9 Recent Hgb in 10s. Continue Folate and monitor CBC. Major depr essive disorder 266499851 F32.9 Stable at present. Continue Duloxetine . Allergic c ontact dermatitis 565625656 L23.9 Stable at present. Continue Cetirizine & Hydrocorti sone cream.Alondra tor for ability to change Cetirizine to PRN. Physical deconditioning 8613888315 9102 R68.89 Related to age, recent inpatient stay, and multiple comorbidit ies.Contin ue PT/OT and monitor progress. Patient plans to d/c to [facility] at this facility.C ontinue PRN APAP for pain.No DVT prophylaxi s -- pt is ambulatory . [id number] Lesly Opalmiri, DO [facility] [address] [place] [address] 08/15/2024 10:20:25 08/26/2024 10:34:21 Acute on chronic diastolic heart failure 211005337 I50.33 Echo while inpatient noted normal LV [...] to up to 100 mg while at [facility] but she was ultimately discharged back on [...] will need f/u with Dr. Xavier Frederick ([employer]). Severe pul monary hypertension 900390240 I27.20 SEE ABOVE... History of mitral valve prosthesis 7767983088 9109 Z95.2 SEE ABOVE... Chronic ob structive pulmonary disease 80593440 J44.9 Not on routine inhalers. Monitor for need - Stiolto is on outpatient medication list but patient was not routinely using prior to recent hospitaliz ation.Cont inue PRN Ventolin.P reviously followed by pulmonolog y at [facility], Dr. Honey Lewis, but not seen in nearly 2 years. Fibrosis of lung 7622887 1 J84.10 SEE ABOVE... Coronary arteriosclerosis 58018705 I25.10 No recent reports of chest pain. Not present on baby ASA, BB, or statin.Pt will need f/u with Dr. Xavier Frederick (cards). Rheumatoid arthritis 698 [address] Khan [place]Incre ased MTX back to usual weekly dose.She does receive monthly Orencia infusions at [facility] but she missed July' so her last infusion was in June 2024. She can f/u once discharged from rehab to discuss resumption of infusions. Continue PRN APAP for pain and monitor closely. Fibromyalgia 787056553 M 79.7 Stable. Continue PRN APAP. Spinal stenosis 61491419 M48.00 Stable. Continue PRN APAP. Idiopathic peripheral neuropathy 51015627 G60.9 Stable. Continue PRN APAP. Irritable bowel syndrome characterized by constipation 306882659 K58.1 Constipate d at present. Continue Lactulose, Miralax, and PRN cathartics per standing orders.Michelle nge Dicyclomin e to PRN -- hospital mistakenly had this as daily OP medication . Gastroesop hageal reflux disease without esophagitis 094125269 K21.9 Without concerns at present. Continue Omeprazole . Anemia 079241928 D64.9 Recent Hgb in 10s. Continue Folate and monitor CBC. Major depr essive disorder 875604105 F32.9 Stable at present. Continue Duloxetine . Allergic c ontact dermatitis 727306114 L23.9 Stable at present. Continue Cetirizine & Hydrocorti sone cream.Alondra ferrara for ability to change Cetirizine to PRN. Physical deconditioning 6816637765 9102 R68.89 Related to age, recent inpatient stay, and multiple comorbidit ies.Contin ue PT/OT and monitor progress. Patient plans to d/c to [facility] at this facility.C ontinue PRN APAP for pain.No DVT prophylaxi s -- pt is ambulatory . [id number] Lesly Castillo DO [facility] [address] [place] [address] 08/18/2024 16:01:28 08/26/2024 10:34:59 Acute on chronic diastolic heart failure 687950889 I50.33 Echo while inpatient noted normal LV [...] to up to 100 mg while at [facility] but she was ultimately discharged back on [...] n to BLE, encourage elevation at rest.Robe ricardoe to trend weights, labs, and edema.Pt will need f/u with Dr. Xavier Frederick (cards). Severe pul monary hypertension 689559268 I27.20 SEE ABOVE... History of mitral valve prosthesis 7008169791 9109 Z95.2 SEE ABOVE... Chronic ob structive pulmonary disease 32532218 J44.9 Not on routine inhalers. Monitor for need - Stiolto is on outpatient medication list but patient was not routinely using prior to recent hospitaliz ation.Cont inue PRN Ventolin.P reviously followed by pulmonolog y at [facility], Dr. Honey Lewis, but not seen in nearly 2 years. Fibrosis of lung 4124645 1 J84.10 SEE ABOVE... Coronary arteriosclerosis 99902964 I25.10 No recent reports of chest pain. Not present on baby ASA, BB, or statin.Pt will need f/u with Dr. Xavier Frederick (cards). Rheumatoid arthritis 698 [address] Khan (rheumatol og).Incre ased MTX back to usual weekly dose.She does receive monthly Orencia infusions at [facility] but she missed July's so her last infusion was in June 2024. She can f/u once discharged from rehab to discuss resumption of infusions. Continue PRN APAP for pain and monitor closely. Fibromyalgia M 79.7 Stable. Continue PRN APAP. Spinal stenosis 77658180 M48.00 Stable. Continue PRN APAP. Idiopathic peripheral neuropathy 18566037 G60.9 Stable. Continue PRN APAP. Irritable bowel syndrome characterized by constipation 229122690 K58.1 Improved. Continue Lactulose, Miralax, and PRN cathartics per standing orders.Michelle nged Dicyclomin e to PRN -- hospital mistakenly had this as daily OP medication . Gastroesop hageal reflux disease without esophagitis 965648432 K21.9 Without concerns at present. Continue Omeprazole . Anemia 132013964 D64.9 Recent Hgb in 10s. Continue Folate and monitor CBC. Major depr essive disorder 303888450 F32.9 Stable at present. Continue Duloxetine . Allergic c ontact dermatitis 262047736 L23.9 Stable at present. Continue Cetirizine & Hydrocorti sone cream.Alondra alem for ability to change Cetirizine to PRN. Health Concerns Section Related Observation LastModified by Organization Detai ls LastModified Time None Recorded Concern Status LastModified by Organization Details LastModified Time None Recorded Advance Directives Directive None Recorded Payers Encounter Date Sequence Insurance Name Policy Number Policy Harris Covered Member ID Harris Member ID Guarantor Name 08/07/2024 1 [place] Ariadne Okeefe [id number] Ariadne Okeefe 08/07/2024 2 [facility] [place] [employer] [address] Ariadne Okeefe [id number] Ariadne Okeefe 08/09/2024 1 [place] Ariadne Okeefe [id number] Ariadne Okeefe 08/09/2024 2 [facility] [employer] [address] Ariadne Okeefe [id number] Ariadne Okeefe 08/11/2024 1 [place] Ariadne Okeefe [id number] Ariadne Okeefe 08/11/2024 2 [facility] [employer] [address] Ariadne Okeefe [id number] Ariadne Okeefe 08/15/2024 1 [place] Ariadne Okeefe [id number] Ariadne Okeefe 08/15/2024 2 [facility] - [employer] [address] Ariadne Okeefe [id number] Ariadne Okeefe 08/18/2024 1 [place] Ariadne Okeefe [id number] Ariadne Okeefe 08/18/2024 2 [facility] - [employer] [address] Ariadne Okeefe [id number] Ariadne Okeefe Notes Date Note Type Note Provider Name and Address Organization Details Recorded Time 08/07/2024 text/html 74-year-old cauc female with PMH of D. CHF, chronic loculated [R] pleural effusion, Mitral Valve Replacement, CAD, COPD, Lung Fibrosis, Severe Pulm HTN, Rheumatoid Arthritis, Fibromyalgia, Peripheral Neuropathy, Spinal Stenosis, MDD, GERD, and Anemia presenting for rehabilitation following hospitalization at [facility] from 07/17 to 07/21/24 for CHF exacerbation and weakness. She was kept at the facility in a swing bed from 07/21 to 08/05/24 for acute rehabilitation and has now transferred to [facility] for further post-acute rehabilitation. Ariadne lives independently in a home, has been largely self-sufficient but does note that her in April 2024 and she has not been in good health since. She presented to [facility] with c/o SOB & weakness on 07/17. She was admitted for CHF exacerbation, diuresed with IV Lasix, and converted to Lasix 40 mg BID. Spironolactone was increased to 50 mg daily. She follows with Dr. Xavier Frederick (cards) at [facility], but has not been seen for [...] years. She is followed by pulmonology at [facility] who is treating supportively with monitoring. [...] Will instead contact her PCP at [facility] and request home medication list. Notably she [...] is son Magdiel Okeefe, who lives in [place]. She was in Apr 2024. Kaycee Sena, TARA [address] [place], [address], [place] [facility] 08/08/2024 09:49:44 08/09/2024 text/html 74-year-old cauc female with PMH of D. CHF, chronic loculated [R] pleural effusion, Mitral Valve Replacement, CAD, COPD, Lung Fibrosis, Severe Pulm HTN, Rheumatoid Arthritis, Fibromyalgia, Peripheral Neuropathy, Spinal Stenosis, MDD, GERD, and Anemia presenting for rehabilitation following hospitalization at [facility] from 07/17 to 07/21/24 for CHF exacerbation and weakness. She remained at the facility in a swing bed from 07/21 to 08/05/24 and has now transferred to [facility] for further post-acute rehabilitation. Ariadne lives independently in a home, has been largely self-sufficient but does note that her in April 2024 and she has not been in good health since. She presented to [facility] with c/o SOB & weakness on 07/17. She was admitted for CHF exacerbation, diuresed with IV Lasix, and converted to Lasix 40 mg BID. Spironolactone dose remains 25 mg daily. She follows with Dr. Xavier Frederick (cards) at [facility], but has not been seen for [...] years. She is followed by pulmonology at [facility] who is treating supportively with monitoring. [...] is son Magdiel Okeefe, who lives in [place]. She was in Apr 2024. 08/09/24Ariadne is [...] applied daily. She will likely d/c to [facility] when she completes skilled rehab - doesn't think she can return to living IND in her home. [place] [address] [facility], [place], [address], [facility] 08/14/2024 05:19:11 08/11/2024 text/html F/U [...] applied daily. She will likely d/c to [facility] when she completes skilled rehab - [...] Orencia infusions via Dr. Khan (rheum) at [facility], but she missed July' so her last infusion was in June. VSS. Staff is without concerns today. Kaycee Sena, SMALL ENGINE SPECIALIST [address] [facility], [place], [address], [facility] - [facility] 08/14/2024 10:01:51 08/15/2024 text/html F/U [...] applied daily. She will likely d/c to [facility] when she completes skilled rehab - doesn't think she can return to living IND in her home. No nursing concerns.---08/11/24Bre evelyne is seen ambulating with w/w to therapy [...] Orencia infusions via Dr. Khan (rheum) at [facility], but she missed July's so her last infusion was in June. VSS. Staff is without concerns today.---08/15/24Chelsi hicks is seated in a room [facility], a good historian, reports she finally [...] concerns today beyond aforementioned. Kaycee Sena, TARA [address] [facility], [place], [address], [place] [facility] 08/15/2024 15:11:47 08/18/2024 text/html 74-year-old cauc female with PMH of D. CHF, chronic loculated [R] pleural effusion, Mitral Valve Replacement, CAD, COPD, Lung Fibrosis, Severe Pulm HTN, Rheumatoid Arthritis, Fibromyalgia, Peripheral Neuropathy, Spinal Stenosis, MDD, GERD, and Anemia presenting for rehabilitation following hospitalization at [facility] from 07/17 to 07/21/24 for CHF exacerbation and weakness. She was kept at the facility in a swing bed from 07/21 to 08/05/24 for acute rehabilitation and has now transferred to [facility] for further post-acute rehabilitation. Ariadne lives independently in a home, has been largely self-sufficient but does note that her in April 2024 and she has not been in good health since. She presented to [facility] with c/o SOB & weakness on 07/17. She was admitted for CHF exacerbation, diuresed with IV Lasix, and converted to Lasix 40 mg BID. Spironolactone was increased to 50 mg daily. She follows with Dr. Xavier Frederick (cards) at [facility], but has not been seen for [...] years. She is followed by pulmonology at [facility] who is treating supportively with monitoring. [...] Will instead contact her PCP at [facility] and request home medication list. Notably she [...] to Dr. Sanchez Coronado upon d/c to [facility].Hernan is son Magdiel Okeefe, who lives in [place]. She was in Apr 2024.---08/07/24Ariadne is doing [...] applied daily. She will likely d/c to [facility] when she completes skilled rehab - [...] Orencia infusions via Dr. Khan (rheum) at [facility], but she missed July's so her last infusion was in June. VSS. Staff is without concerns today.---08/15/24Chelsi hicks is seated in a room in [facility], a good historian, reports she finally [...] Staff is without concerns today beyond aforementioned.---08/05 10/27Mirandandkurt is doing well today, seated on the side of her bed, preparing to head to lunch shortly. She is without concerns, reports her edema to her BLE continues to improve, and she continues to have small bowel movements. She will transfer to [facility] on 08/21 with [facility]. She is without concerns regarding this transfer. VSS. Staff is also without concerns today. Her weight continues to downtrend as desired, down 11 lbs since arrival to this facility. Kaycee Sena, TARA [address] [facility], [place], [address], [facility] - [facility] 08/18/2024 18:40:47 OBGyn Episode No OBEpisode recorded.
--- OUTSIDE RECORDS SUMMARY | 2024-11-07 06:54 | XMS_ITS | Patient Health Record ---
Author Organization [facility] denae Address [address] [place] [address] Care Team Providers Care Diversified Crops Ii Farmworker Name Role Phone Sandy FRANZ, Sanchez Primary Care Provider Unavail able Eleazar Watkins Unavailable [phone] Eleazar Watkins MD Unavailable Unavailabl e Julita, [place] Unavailable [phone] Godefroid, Carli Unavailable [phone] Allergies No Known Allergies Results Component Value Reference Range Notes eGFR Reviewed date:09/15/2024 08:18:54 AM Interpretation: Performing Lab:[facility] , [address] [facility] [address] Notes/Report: eGFR 39 >=60 mL/min/1.73 m2 Interpretive [...] Automated Reviewed date:09/15/2024 08:18:48 AM Interpretation: Performing Lab:[facility] , [address] [facility]. [place] [address] Notes/Report: Neut Abs 7.7 1.5-6.5 K/cumm ImmGran Abs 0.1 0.0-0.1 K/cumm Lymphocyte Abs 1.3 0.8-3.3 K/cumm Cottonwood Abs 0.8 0.2-0.8 K/cumm Eos Abs 0.2 [...] Interpretive Data was last revised on 2017. [place]wood Pct 8.3 Interpretive Data Percent cell count [...] was last revised on 2017. eGFR Reviewed date:05/04/2024 06:34:34 AM Interpretation: Performing Lab:[facility] , [address] [facility]. [place] [address] Notes/Report: eGFR 70 >=60 mL/min/1.73 m2 Interpretive [...] was last reviewed 2021. Differential Automated Reviewed date:05/04/2024 06:34:12 AM Interpretation: Performing Lab:[facility] , [address] [place] [address]. [facility] [address] Notes/Report: Neut Abs 5.4 1.5-6.5 K/cumm ImmGran Abs 0.0 0.0-0.1 K/cumm Lymphocyte Abs 0.8 0.8-3.3 K/cumm Cottonwood Abs 0.6 0.2-0.8 K/cumm Eos Abs 0.2 [...] Interpretive Data was last revised on 2017. Cottonwood Pct 8.3 Interpretive Data Percent cell count [...] revised on 2017. Hep Func Panel Reviewed date:05/04/2024 06:32:49 AM Interpretation: Performing Lab:[facility] , [address] [place] [address]. [facility] [address] Notes/Report: Total Bilirubin 0.9 0.1-1.2 mg/dL Bilirubin, Direct 0.4 0.1-0.3 mg/dL Plasma Total Protein 6.9 6.5-8.5 g/dL Albumin 4.3 3.5-5.0 g/dL Alkaline Phosphatase 46 40-130 Units/L ALT 14 7-45 Units/L AST 19 10-45 Units/L Creatinine Reviewed date:05/04/2024 06:33:10 AM Interpretation: Performing Lab:[facility] , [address] [place] [address]. [place] [address] Notes/Report: Creatinine 0.88 0.60-1.10 mg/dL CBC w auto diff Reviewed date:05/04/2024 01:33:40 PM Interpretation: Performing Lab:[facility] , [address] [place] [address]. [place] [address] Notes/Report: WBC 7.0 3.8-9.9 K/cumm Hgb 10.6 11.9-15.5 g/dL Hct 35.5 35.6-45.5 % Platelet Ct 174 150-400 K/cumm MPV 10.8 9.1-12.3 fL RBC 3.87 3.90-5.20 M/cumm MCV 91.7 81.3-96.4 fL MCH 27.4 27.1-33.3 pg MCHC 29.9 32.3-35.7 g/dL RDW CV 19.5 11.1-14.9 % RDW SD 64.3 35.7-48.1 fL NRBC Abs Auto 0.00 0.00-0.01 K/cumm Hep Func Panel Reviewed date:09/15/2024 08:17:45 AM Interpretation: Performing Lab:[facility] , [address] [place] [address]. [facility] [address] Notes/Report: Total Bilirubin 1.0 0.1-1.2 mg/dL Bilirubin, Direct 0.5 0.1-0.3 mg/dL Plasma Total Protein 8.1 6.5-8.5 g/dL Albumin 4.2 3.5-5.0 g/dL Alkaline Phosphatase 58 40-130 Units/L ALT 12 7-45 Units/L AST 27 10-45 Units/L Creatinine Reviewed date:09/15/2024 08:33:23 AM Interpretation: Performing Lab:[facility] , [address] [place] [address]. [facility] [address] Notes/Report: Creatinine 1.43 0.60-1.10 mg/dL CBC w auto diff Reviewed date:09/15/2024 08:17:59 AM Interpretation: Performing Lab:[facility] , [address] [place] [address]. [facility] [address] Notes/Report: WBC 10.1 3.8-9.9 K/cumm Hgb 13.9 [...] synd dax, right leg (M76.31) Referral Organization [facility] ender Referring Provider First Name [place] [...] synd dax, right leg (M76.31) Referral Organization [facility] Referring Provider First Name Carli Referring Provider Last Name Simeon Referring Provider Speciality Nurse Jagruti cotto Referred Provider Nam Saunders PT Referred Provider Specialty Physical The rapist Referral Priority Routine Reason 09.08.2024 Mamie Randall edicare/Local 520-NO PA REQURIED per [id number] Diagnosis 1 Other specified rheu matoid arthritis, multiple sites (M06.89) Referral Organization [facility] ender Referring Provider First Name Eleazar Referring Provider Last Name June Referring Provider Speciality Rheumatolo gy Referred Organization [facility] ender Referred Provider Eleazar Watkins Referred Address [address],[address], Referred Provider Specialty Rheumatology Procedure 1 ABATACEPT INJECTION (J0129) Referral Priority Routine Medications Medication SIG (Take, Route, Frequency, Duration) Notes Start Date End Date Status Folic Acid 1 MG TAKE 1 TABLET ONE TI ME DAILY for 90 Active Pantoprazole Sodium 40 MG take 1 tablet (40 mg) by oral route once daily Oral 1 Active Spironolactone-HCTZ 25-25 mg take 1 tablet by oral route once daily Oral 1 Active Orencia 250 mg infuse 1,000 mg over 30 minute(s) by intravenous route every 4 weeks Intravenous [id number] 08/14/2020 Active Problems Problem Type SNOMED Code ICD Code Onset Dates Problem Status W/U Status Risk Notes Problem Rheumatoid arthritis (95882432) Rheumatoid arthritis without rheumatoid factor, unspecified site (M06.00) Active confirmed Problem 587200714 Other specified rheumatoid arthritis, multiple sites (M06.89) Active confirmed Problem Rheumatoid arthritis, unspecified (M06.9) Active confirmed Vital Signs Heart Rate 75 /min 09/14/2024 Temperature 97.8 degrees Fahrenheit 10/12/2024 Oximetry 98 % 05/03/2024 Blood pressure diastolic 57 mm Hg 10/12/2024 Height-cm 177.80 cm 10/12/2024 Weight-kg 76.2 kg 10/12/2024 Height 70 in 10/12/2024 Blood pressure systolic 118 mm Hg 10/12/2024 Weight 168 lbs 10/12/2024 BMI 24.1 kg/m2 10/12/2024 Encounters Encounter Location Date Provider Diagnosis [facility] [address] [place] [address] 11/17/2023 Eleazar DiValerio Other specified rheumatoid arthritis, multiple sites M06.89 and Rheumatoid arthritis without rheumatoid factor, unspecified site M06.00 [facility] [address] [place] [address] 12/16/2023 Eleazar DiValerio Other specified rheumatoid arthritis, multiple sites M06.89 [facility] [address] [place] [address] 01/13/2024 Eleazar DiValerio Other specified rheumatoid arthritis, multiple sites M06.89 [facility] [address] [place] [address] 03/01/2024 Eleazar DiValerio Other specified rheumatoid arthritis, multiple sites M06.89 [facility] [address] [place] [address] 05/03/2024 Eleazar DiValerio Other specified rheumatoid arthritis, multiple sites M06.89 [facility] [address] [place] [address] 05/03/2024 [place] Cancino Iliotibial band syndrome, right leg M76.31 [facility] [address] [place] [address] [facility] [address] [place] [address] 05/31/2024 Eleazar DiValerio Other specified rheumatoid arthritis, multiple sites M06.89 [facility] [address] [place] [address] [facility] [address] [place] [address] 06/08/2024 Carli Adamsnancy Other specified rheumatoid arthritis, multiple sites M06.89 and Iliotibial band syndrome, right leg M76.31 [facility] [address] [place] [address] 09/14/2024 Eleazar Watkins Other specified rheumatoid arthritis, multiple sites M06.89 [facility] [address] [place] [address] 10/12/2024 Eleazar Watkins Other specified rheumatoid arthritis, multiple sites M06.89 and Other [facility]current[facility] drug therapy Z79.899 [facility] [address] [place] [address] 05/29/2024 [facility] [address] [place] [address] 07/14/2024 [facility] [address] [place] [address] 09/04/2024 [facility] [address] [place] [address] 09/14/2024 [facility] [address] [place] [address] 09/15/2024 [facility] [address] [place] [address] 10/13/2024 Eleazar Watkins Assessments Encounter Date Diagnosis (ICD Code) Assessment [...] exercise program. A new order was complted 09/14/2024 Other specified rheumatoid arthritis, multiple sites (ICD-10 - M06.89) 10/12/2024 Other specified rheumatoid arthritis, multiple sites (ICD-10 - M06.89) 10/12/2024 Other long term care administrator (current) drug therapy (ICD-10 - Z79.899) 11/17/2023 Rheumatoid arthritis without rheumatoid factor, unspecified site (ICD-10 - M06.00) 06/08/2024 Iliotibial band syndrome, right leg (ICD-10 - M76.31) 03/29/2024 Other Plan Of Treatment Pending Test Test Name Order Date CBC With Differential/Platelet Hepatic Function Panel (7) 12/16/2023 Hepatic Function Panel (7) 10/20/2023 CBC 10/20/2023 Creatinine 12/16/2023 Creatinine 10/20/2023 Quantiferon Gold 12/16/2023 Basic Metabolic Panel 10/12/2024 Next Appt Details Provider Name:Eleazar Randall Mariahkurt chelly, 11/13/2024 10:30:00 AM, [address], [place], [address], Provider Name:Eleazar Randall Mariahkurt chelly, 12/07/2024 02:00:00 PM, [address], [place], [address], Insurance Providers Payer Name Payer Address Payer Phone Subscriber Number Group Number Insured Name Patient Relationship to Insured Coverage Start Date Coverage End Date Medicare [address] [address] [place] [address] [id number] Ariadne Okeefe Self - patient is the insured [address] [address] [id number] Ariadne Okeefe Self - patient is the insured Medical (General) History Medical History History ICD Code Arthritis; Joint pain; Surgical History Surgery Date(Month/Year) Hip surgery; 2020-08-14 Wrist surgery; 2020-08-14 heart valve; 2020-08-14 Fallopian tube; 2020-08-14
--- OUTSIDE RECORDS SUMMARY | 2024-11-07 06:54 | XMS_ITS | Encounter Summary ---
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
--- OUTSIDE RECORDS SUMMARY | 2024-11-07 06:54 | XMS_ITS | Encounter Summary ---
Author Organization [facility] Address [address] [place] [address] Care Team Providers Care Life Enrichment Assistant Name Role Phone Unavailable Primary Care Provider Unavailabl e Reason for Visit * Reason Onset Date Comments Question 11/03/2024 CT chest Encounter Details Date Type Department Care Team (Late st Contact Info) Description 11/03/2024 Telephone [facility] Pulmonology [facility] [address] [place] [address] Derek Bedolla MD [address] [place] [address] Question (CT chest) Social History Tobacco Use Types Packs/Day Years Used Date Smoking Tobacco: Never Assessed Comments Unknown Sex and Gender Information Value Date Recorded Sex Assigned at Not on file Legal Sex Female 10:17 AM CDT Gender Identity Not on file Sexual Orientation Not on file documented as of this encounter Miscellaneous Notes * Telephone Encounter - Brittney Gamez RN - 11/03/2024 11:42 AM CDT Kandy, from [facility], states Farzana told her patient needs a CT before her 11/08/24 office appt. Called her back to let her know we do not have chest CT records. US thoracentesis done on 10/11/24, (removed 0.7 liters of serous fluid, CXR was done afterward. She will fax thesereports to us. I told her patient needs a chest CT without contrast if someone could get that arranged prior to 11/08/24 and that she will need to bring a CD with images to her appt. Teressa states she does not have a PCP but Kandy said she does; PCP ordered the thoracentesis. I explained because we have not seen patient yet that we cannot order CT. She will contact PCP's office and try to get it scheduled prior to 11/08/24. documented in this encounter Plan of Treatment Upcoming Encounters Date Type Department Care Team (Late st Contact Info) Description 11/08/2024 3:00 PM CDT Office Visit [facility] Pulmonology [address] [place] [address] Derek Bedolla MD [address] [place] [address] documented as of this encounter Visit Diagnoses Not on filedocumented in this encounter
--- OUTSIDE RECORDS SUMMARY | 2024-11-07 06:55 | XMS_ITS | Clinical Summary ---
Author Organization [facility] Address [address] [place] [address] Care Team Providers Care Network Security Architect Name Role Phone Dg Huerta MD Primary Care Provider Xavier Frederick MD Unavailable [phone] Allergies Active Allergy Reactions Criticality Noted Date Comments Rabeprazole Hives Medium Nizatidine Hives Medium Reaction: hives, Medications abatacept (ORENCIA) 250 mg injection Infuse 30 mL (750 mg total) into a venous catheter every 4 (four) weeks Active methotrexate 2.5 mg tablet TAKE 10 TABLETS (25 MG TOTAL) ONE TIME A WEEK DIRECTED 130 tablet 3 02/19/[address] (CYMBALTA) 20 mg capsule Take 1 capsule (20 mg total) by mouth daily 03/20/20 20 Active albuterol HFA (PROVENTIL HFA,VENTOLIN HFA,PROAIR HFA) 90 mcg/actuation inhaler Inhale 1 puff every 4 (four) hours as needed 09/28/19 21 Active potassium chloride ER 20 mEq CR tablet 05/20/[address] (PROTONIX) 40 mg EC tablet Take 1 tablet (40 mg total) by mouth daily Active spironolactone (ALDACTONE) 25 mg tablet Take 1 tablet (25 mg total) by mouth 10/23/19 23 Active acetaminophen 500 mg capsuleIndications :Pain Take 2 capsules (1,000 mg total) by mouth every 6 (six) hours as needed for pain 11/02/19 24 Active traZODone (DESYREL) 50 mg tablet 1 tablet (50 mg total) nightly 11/27/19 24 Active folic acid (FOLVITE) 1 mg tablet 01/12/20 24 Active omeprazole (PriLOSEC) 40 mg capsule Take 1 capsule (40 mg total) by mouth daily 30 capsule 06/14/20 24 Active ondansetron ODT (ZOFRAN-ODT) 4 mg disintegrating tablet Take 1 tablet (4 mg total) by mouth every 8 (eight) hours as needed for nausea or vomiting 20 tablet 06/14/20 24 Active dicyclomine (BENTYL) 20 mg tablet Take 1 tablet (20 mg total) by mouth 2 (two) times a day 20 tablet 06/29/20 24 025 Active Additional Information Patient taking differently:20 mg oralDaily, Reported on 09/12/2024 allopurinoL (ZYLOPRIM) 100 mg tablet Take 1 tablet (100 mg total) by mouth daily 09/03/19 25 Active cetirizine (ZyrTEC) 5 mg tablet daily 0 09/06/19 25 Active furosemide (LASIX) 40 mg tablet Take 1 tablet (40 mg total) by mouth 2 (two) times a day Active sodium chloride (OCEAN) 0.65 % nasal spray Administer 1 spray into each nostril as needed for congestion or rhinitis 11/02/19 24 025 Active Problems Problem Noted Date Diagnosed Date [...] management - Sinus precautions, HOB elevated - [place] nasal spray - ice packs prn - [...] (10/31/2023 11:21 AM CDT): - Orencia 750mg [id number] [last dose 10/19] Psoriasis 11/18/2013 Overview (10/09/2016): [...] Encounters Date Type Department Care Team Description 10/11/[address] [facility] [address]th [place] [address] [place] [address] Niko Santos 10/09/[address] [facility] 8th [place] [address] [place] [address] Jacinto Reilly 10/02/[address] [facility] 8th [place] [address] [place] [address] Xavier Frederick MD Scheduling Appointments 09/27/[address] [facility] 8th [place] [address] [place] [address] Xavier Frederick MD Test Results 09/21/2024 4:39 PM CDT - 09/21/2024 11:59 PM CDT Hospital Encounter [facility] [address] [place] [address] Discharge Disposition: Discharge to home or self care 09/19/[address] [facility] 8th [place] [address] [place] [address] Xavier Frederick MD 09/14/2024 7:49 PM CDT - 09/14/2024 11:59 PM CDT Hospital Encounter [facility] [address] [place] [address] Discharge Disposition: Discharge to home or self care 09/12/2024 2:30 PM CDT Office Visit [facility] Cardiology [address] [place] [address] Xavier Frederick MD S/P MVR (mitral valve replacement) (Primary Dx); Heart valve disorder; Shortness of breath 09/12/2024 Results Follow-Up [facility] Cardiology [address] [place] [phone] Xavier Frederick MD 08/18/2024 Telephone [facility] Cardiology [facility] 8th [place] [address] [place] [phone] Yecenia Dunn from Last 3 Months Immunizations [...] on file Legal Sex Female 12:17 AM FURNITURE RENTAL CONSULTANT Gender Identity Not on file Sexual [...] 36.6 C (97.8 F) 06/29/2024 11:58 AM FURNITURE RENTAL CONSULTANT Respiratory Rate 16 06/29/2024 6:30 PM FURNITURE RENTAL CONSULTANT Oxygen Saturation 93% 09/12/2024 3:14 PM [...] Type Associated Problems Recent Progress Patient-Stated? Author YOINS General Goal - Patient schedules and keeps [...] Plan Chronic Care Management Worsening( 2:58 PM FURNITURE RENTAL CONSULTANT) Viola Parkinsno RN Note: Problem: Chronic Pain Goals: 1. Minimize further functional decline 2. Maximize quality of life 3. Control pain Strategies: - Activity/exercise program recommendation - Conservative stepwise pain medicine strategy with multi-disciplinary approach - Recommend healthy lifestyle strategies and compensatory methods as needed Medical Devices Implanted Type Area Assorter Laundry Device Identifier Shelf Expiration Date Model / Serial / Lot [employer]/ Ortho Plate Evos 2.7mm/3.5mm Olecranon W/ Tines 7h R 114mm [id number] - [id number] Implanted:Qty: 1 on 10/29/2023 by Dee Meyer MD at [facility] Right: Forearm [employer]/O rtho [id number] / / [employer]/ Ortho 2.7mm 4.3mm 55mm Lock Self Retain Flat Head Long Bone Small Bone [id number] - [id number] Implanted:Qty: 1 on 10/29/2023 by Dee Meyer MD at [facility] Right: Forearm [employer]/O rtho [id number] / / [employer] Evolve 20mm Modular Elbow Standard Head Radial Proline 496-[id number] - [id number] Implanted:Qty: 1 on 10/29/2023 by Dee Meyer MD at [facility] Right: Forearm [employer] [id number] 04/06/2031 [id number] / / [id number] [employer] Evolve 7.5mm Head System Smooth Elbow +4mm Stem Radial Proline [id number] - [id number] Implanted:Qty: 1 on 10/29/2023 by Dee Meyer MD at [facility] Right: Forearm [employer] 11/18/2028 [id number] / / [id number] [employer]/ Ortho Evos 3.5mm 22mm Self Tap Cortex Screw Bone Sterile [id number] - [id number] Implanted:Qty: 1 on 10/29/2023 by Dee Meyer MD at [facility] Right: Forearm [employer]/O rtho [id number] / / [employer]/ Ortho Evos 3.5mm 18mm Self Tap Cortex Screw Bone Sterile [id number] - [id number] Implanted:Qty: 1 on 10/29/2023 by Dee Meyer MD at [facility] Right: Forearm [employer]/O rtho [id number] / / [employer]/ Ortho Evos 3.5mm 14mm Self Tap Cortex Screw Bone Sterile [id number] - [id number] Implanted:Qty: 1 on 10/29/2023 by Dee Meyer MD at [facility] Right: Forearm [employer]/O rtho [id number] / / [employer]/ Ortho Evos 2.7mm 4.5mm 16mm Self Tap Cortex T8 Screw Bone Mini Plate [id number] - [id number] Implanted:Qty: 1 on 10/29/2023 by Dee Meyer MD at [facility] Right: Forearm [employer]/O rtho [id number] / / [employer]/ Ortho 2.7mm 4.5mm 80mm Self Retaining Screwdriver Self Tap Flat Head [id number] - [id number] Implanted:Qty: 1 on 10/29/2023 by Dee Meyer MD at [facility] Right: Forearm [employer]/O rtho [id number] / / [employer]/ Ortho Evos 3.5mm 24mm Self Tap Lock Screw Bone Sterile [id number] - [id number] Implanted:Qty: 1 on 10/29/2023 by Dee Meyer MD at [facility] Right: Forearm [employer]/O rtho [id number] / / Explanted Type Area Assorter Laundry Device Identifier Shelf Expiration Date Model / Serial / Lot [employer] /Ortho Evos 3.5mm 24mm Self Tap Cortex Screw Bone Sterile [id number] - [id number] Explanted:Qty : 1 on 10/29/2023 by Dee Meyer MD at [facility] Right: Forearm [employer]/Or tho [id number] / / [employer] /Ortho Evos Mini 2.7mm 4.5mm 80mm Self Tap Cortex T8 Screw Bone [id number] - [id number] Explanted:Qty : 1 on 10/29/2023 by Dee Meyer MD at [facility] Right: Forearm [employer]/Or tho [id number] / / Procedures Procedure Name Priority Date/Time [...] Read Routine (OP Routine) 07/19/2023 1:50 PM FURNITURE RENTAL CONSULTANT Screening mammogram, encounter for DEXA AXIAL SKELETON BONE DENSITY 1 OR MORE SITES Schedule Routine, Read Routine (OP Routine) 12/22/2021 1:25 PM CDT Genitourinary syndrome of menopause from Last 3 Months or Most Recently Relevant to Health Maintenance Results * US Outside Reference (09/21/2024 4:39 PM CDT) Impressions [facility] - 09/21/2024 4:39 PM CDT These images are for Reference purposes only and have not been reviewed by [facility] Radiology. There will be no report generated by a [facility] Radiologist. Narrative [facility] - 09/21/2024 4:39 PM CDT EXAMINATION: Images For Reference Purposes Only Xavier Frederick MD IMG US PROCEDURES Final Resul t Performing Organization Address [facility]/ZIP Co de Phone Number [facility] * (ABNORMAL) [...] of Race in Diagnosing Kidney Disease, JASN 202). The CKD-EPI equation should not be used for patients with unstable renal function and has not been validated in children and those over 70. Current interpretive data was last reviewed 2021. Blood 09/14/2024 2:42 PM CDT 09/14/2024 9:18 PM CDT Eleazar Khan MD LAB BLOOD ORDERABLES Fin al Result Performing Organization Address City/[facility]/ZIP Co de Phone Number [facility] [address] Department of Laboratories [place], [place] [id number] * (ABNORMAL) Differential, auto (09/14/2024 2:42 PM CDT) Neutrophil abs 7.7(H) 1.5 - 6.5 K/cumm Imm gran abs 0.1 0.0 - 0.1 K/cumm [facility] Lymphocyte abs 1.3 0.8 - 3.3 K/cumm [facility] Monocyte abs 0.8 0.2 - 0.8 K/cumm [facility] Eosinophil abs 0.2 0.0 - 0.5 K/cumm [facility] Basophil abs 0.1 0.0 - 0.1 K/cumm [facility] Neutrophil pct 76.3 % [facility] Comment: Interpretive Data Percent cell count reference ranges are not reported, since discordance with absolute values may lead to misinterpretation of CBC data. Current Interpretive Data was last revised on 2017. Imm gran pct 0.5 % [facility] Comment: Interpretive Data Percent cell count reference ranges are not reported, since discordance with absolute values may lead to misinterpretation of CBC data. Current Interpretive Data was last revised on 2017. Lymphocyte pct 12.5 % [facility] Comment: Interpretive Data Percent cell count reference ranges are not reported, since discordance with absolute values may lead to misinterpretation of CBC data. Current Interpretive Data was last revised on 2017. Monocyte pct 8.3 % [facility] Comment: Interpretive Data Percent cell count reference ranges are not reported, since discordance with absolute values may lead to misinterpretation of CBC data. Current Interpretive Data was last revised on 2017. Eosinophil pct 1.6 % [facility] Comment: Interpretive Data Percent cell count reference ranges are not reported, since discordance with absolute values may lead to misinterpretation of CBC data. Current Interpretive Data was last revised on 2017. Basophil pct 0.8 % [facility] Comment: Interpretive Data Percent cell count reference ranges are not reported, since discordance with absolute values may lead to misinterpretation of CBC data. Current Interpretive Data was last revised on 2017. Blood 09/14/2024 2:42 PM CDT 09/14/2024 8:29 PM CDT us Eleazar Khan MD LAB BLOOD ORDERABLES Fin al Result [facility] [address] [place] [address] * (ABNORMAL) CBC with auto differential (09/14/2024 2:42 PM CDT) [facility] WBC 10.1(H) 3.8 - 9.9 K/cumm Hgb 13.9 11.9 - 15.5 g/dL [facility] Hct 42.2 35.6 - 45.5 % [facility] Plt 287 150 - 400 K/cumm [facility] MPV 10.2 9.1 - 12.3 fL [facility] RBC 4.95 3.90 - 5.20 M/cumm [facility] MCV 85.3 81.3 - 96.4 fL [facility] MCH 28.1 27.1 - 33.3 pg [facility] MCHC 32.9 32.3 - 35.7 g/dL [facility] RDW CV 16.2(H) 11.1 - 14.9 % [facility] RDW SD 48.8(H) 35.7 - 48.1 fL [facility] NRBC abs 0.00 0.00 - 0.01 K/cumm [facility] Blood 09/14/2024 2:42 PM CDT 09/14/2024 8:29 PM CDT us Eleazar Khan MD LAB BLOOD ORDERABLES Fin al Result Performing Organization Address [facility] Co de Phone Number [facility] [address] [facility] [employer] [place] [address] * (ABNORMAL) Creatinine (09/14/2024 2:42 PM CDT) [facility] Creatinine 1.43(H) 0.60 - 1.10 mg/dL Blood 09/14/2024 2:42 PM CDT 09/14/2024 8:29 PM CDT us Eleazar Khan MD LAB BLOOD ORDERABLES Fin al Result [facility] [address] [place] [address] * (ABNORMAL) Hepatic function panel (09/14/2024 2:42 PM CDT) Bilirubin, total 1.0 0.1 - 1.2 mg/dL Bilirubin, direct 0.5(H) 0.1 - 0.3 mg/dL [facility] Protein, pl 8.1 6.5 - 8.5 g/dL [facility] Albumin 4.2 3.5 - 5.0 g/dL [facility] Alk phos 58 40 - 130 Units/L [facility] ALT 12 7 - 45 Units/L [facility] AST 27 10 - 45 Units/L [facility] Blood 09/14/2024 2:42 PM CDT 09/14/2024 8:29 PM CDT Eleazar Khan MD LAB BLOOD ORDERABLES Fin al Result [facility] [address] [place] [address] * ECG 12 lead (09/12/2024 3:06 PM CDT) Xavier Frederick MD ECG ORDERABLES Final Result * Screening Mammogram Bilateral W Carlos (07/19/2023 1:50 PM FURNITURE RENTAL CONSULTANT) Anatomical Region Laterality Modality Breast Bilateral Mammography Narrative 07/19/2023 2:22 PM FURNITURE RENTAL CONSULTANT Examination: Screening Mammogram Bilateral W Carlos: [...] bone density.. DXA BMD was done at [facility] on a [employer] CI. Precision testing at this site [...] bone density.. DXA BMD was done at [facility] on a [employer] CI. Precision testing at this site [...] H [employer] W [employer] SUPPLEMENT MEDICARE MEDICARE [facility] Address: [address] [address] LOCAL [address] [employer] SUPPLEMENT MEDICARE COMMERCIAL GENERIC Advance Directives For more information, please contact: [phone] * Full Code (Latest Code Status on File) Date Activated Date Inactivated Comments 10/29/2023 3:27 PM 11/03/2023 12:45 AM * Full Code Date Activated Date Inactivated Comments 10/29/2023 1:01 AM 10/29/2023 3:27 PM * Full Code Date Activated Date Inactivated Comments 01/08/2021 12:21 PM 01/09/2021 4:50 AM Care Teams Network Security Architect Relationship Specialty Start Date End Date Dg Huerta MD PCP - General 10/02/16 Xavier Frederick MD [address] [place] [address] Referring Physician Cardiology 10/02/24
--- OUTSIDE RECORDS SUMMARY | 2024-11-07 06:55 | XMS_ITS | Encounter Summary ---
Author Organization [facility] Address [address] [place] [address] Care Team Providers Care Monument Letterer Name Role Phone Dg Huerta MD Primary Care Provider [phone] Dg Huerta MD Primary Care Provider [phone] Dg Huerta MD Primary Care Provider [phone] Xavier Frederick MD Unavailable [phone] Encounter Details Date Type Department Care Team (Late st Contact Info) Description 08/04/2016 Orders Only [facility] ProviderEtelvina MD [address] [place] [address] Social History Tobacco Use Types Packs/Day Years Used Date Smoking Tobacco: Some Days Cigarettes Last attempted to quit: 07/05/1990 Alcohol Use Standard Drinks/Week Comments No 0 (1 standard drink = 0.6 oz pur e alcohol) Comments Unknown Sex and Gender Information Value Date Recorded Sex Assigned at Not on file 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
--- OUTSIDE RECORDS SUMMARY | 2024-11-07 06:55 | XMS_ITS | Clinical Summary ---
Author Organization [facility] Address [address] [place] [address] Care Team Providers Care Pbx Supervisor Name Role Phone None, Provider MD Primary [...] 1 - Tdap) 1970 Mammogram Screening 1991 Pneumococcal Vaccine: 50+ Ye ars (1 of 1 - PCV) 2001 Zoster Vaccines (1 of 2) 2001 Annual Medicare Wellness Visit 2016 Dexa Scan (General) 2016 COVID-19 Vaccine ( - 2023-2 5 [...] age to complete this topic Insurance LOCAL [facility] MEDICARE Care Teams Pbx Supervisor Relationship Specialty Start Date End Date None, Provider, PCP - General 04/20/19
--- OUTSIDE RECORDS SUMMARY | 2024-11-07 06:55 | XMS_ITS | Encounter Summary ---
Author Organization [facility] Healthcare Address [address] [place] [address] Care Team Providers Care Grades 1 Thru 6 Home Teacher Name Role Phone Dg Huerta MD Primary Care Provider [phone] Xavier Frederick MD Unavailable [phone] Encounter Details Date Type Department Care Team (Late st Contact Info) Description 12/09/2022 Telephone [facility] 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 [facility] Chronic Pain Care Plan Chronic Care Management Worsening( 2:58 PM CABLEWAY OPERATOR) Viola Parkinson RN Note: Problem: Chronic Pain Goals: 1. Minimize further functional decline 2. Maximize quality of life 3. Control pain Strategies: - Activity/exercise program recommendation - Conservative stepwise pain medicine strategy with multi-disciplinary approach - Recommend healthy lifestyle strategies and compensatory methods as needed documented as of this encounter Visit Diagnoses Not on filedocumented in this encounter Care Teams Grades 1 Thru 6 Home Teacher Relationship Specialty Start Date End Date Dg Huerta MD PCP - General 10/02/16 Xavier Frederick MD [address] [place] [address] Referring Physician Cardiology 10/02/24 documented as of this encounter
--- OUTSIDE RECORDS SUMMARY | 2024-11-07 06:55 | XMS_ITS | Encounter Summary ---
Author Organization [facility] Healthcare Address [address] [place] [address] Care Team Providers Care Fatback Trimmer Name Role Phone Dg Huerta MD Primary Care Provider [phone] Xavier Frederick MD Unavailable [phone] Encounter Details Date Type Department Care Team (Late st Contact Info) Description 04/20/2023 Telephone [facility] Primary Care Medicine Clinic [address] [place] [address] Dg Huerta MD [address] [place] [address] Social History Tobacco Use Types Packs/Day Years Used Date Smoking Tobacco: Former Cigarettes 1 58.3 S tarted: 1967 Smokeless Tobacco: Never Alcohol Use Standard Drinks/Week Comments Yes 0 (1 standard drink = 0.6 oz pur e alcohol) occassional Comments No Sex and Gender Information Value Date Recorded Sex Assigned at Not on file Legal Sex Female 12:17 AM MONEY COUNTER Gender Identity Not on file Sexual Orientation [...] orders or changes made to medication regimen. [facility] Chronic Pain Care Plan Chronic Care Management Worsening( 2:58 PM MONEY COUNTER) Viola Parkinson RN Note: Problem: Chronic Pain Goals: 1. Minimize further functional decline 2. Maximize quality of life 3. Control pain Strategies: - Activity/exercise program recommendation - Conservative stepwise pain medicine strategy with multi-disciplinary approach - Recommend healthy lifestyle strategies and compensatory methods as needed documented as of this encounter Visit Diagnoses Not on filedocumented in this encounter Care Teams Fatback Trimmer Relationship Specialty Start Date End Date Dg Huerta MD PCP - General 10/02/16 Xavier Frederick MD [address] [place] [address] Referring Physician Cardiology 10/02/24 documented as of this encounter
--- OUTSIDE RECORDS SUMMARY | 2024-11-07 06:55 | XMS_ITS | Clinical Summary ---
Author Organization [facility] [employer] Address [address] [place] [address] Care Team Providers Care Inventory Manager Name Role Phone Dg Huerta MD Primary Care Provider Source Comments [facility] [employer],non-owned Affiliates and Associated Physician Practices is amultiple site organization consisting of ambulatory clinics and hospital sitesin [place], [place], [place] and [place]. This disclosure is being madepursuant to the Care Everywhere program and may not contain all information available regarding this patient. Last updated 18.[facility] [employer] Allergies No known active allergies Immunizations Immunization Administration Dates Next Due INFLUENZA VACCINE, HIGH-DOSE , QUADR. 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 Gender Identity Not on file Sexual Orientation [...] patient's age to complete this topic Insurance MEDICARE MEDICARE [employer] GENERIC SELF PAY NO INSURANCE Member Subscriber Plan / Payer (Ef fective for All Dates) Name:Ariadne Cage Member ID:Not on file Relation to Subscriber:Not on file Name:ARIADNE CAGE Subscriber ID:Not on file (Home) Address: [address] [place] [id number] Payer ID:Not on file Group ID:Not on file Type:Self Pay Address: [place], [place] Care Teams Inventory Manager Relationship Specialty Start Date End Date Dg Huerta MD [address] [place] [id number] PCP - General 03/04/22
--- OUTSIDE RECORDS SUMMARY | 2024-11-07 06:55 | XMS_ITS ---
Author Organization [facility] denae Address [address] [facility] [place] [address] Care Team Providers Care Oil Well Directional Surveyor Name Role Phone Sandy FRANZ, Sanchez Primary Care Provider Unavail able Eleazar Watikns Unavailable [phone] Eleazar Watkins MD Unavailable Unavailabl e REASON FOR VISIT Infusion, Orencia, 750mg, 3 vials, RMD Medications Medication SIG (Take, Route, Frequency, [...] by intravenous route every 4 weeks Intravenous [id number]-[id number] 08/14/2020 Active Vital Signs Temperature 97.8 degrees Fahrenheit 10/13/19 25 Blood pressure systolic 118 mm Hg 10/13/19 25 Blood pressure diastolic 57 mm Hg 025 Height 70 in 10/12/2024 Weight 168 lbs 10/12/2024 BMI 24.1 kg/m2 10/12/2024 Height-cm 177.80 cm 10/12/2024 Weight-kg 76.2 kg 10/12/2024 Encounters Encounter Location Date Provider Diagnosis [facility] [address] [facility] [address] [place] [address] 10/12/2024 Eleazar Watkins Other specified rheumatoid arthritis, multiple sites M06.89 and [facility] [place] [facility] [place] drug therapy Z79.899 Assessments Encounter Date Diagnosis (ICD Code) Assessment Notes Treatment Notes Treatment Clinical Notes Section Notes 10/12/2024 Other specified rheumatoid arthritis, multiple sites (ICD-10 - M06.89) 10/12/2024 [place] [facility] [place] drug therapy (ICD-10 - Z79.899) Plan Of Treatment Pending Test Test Name Order Date Basic Metabolic Panel 10/12/2024 Next Appt Details Provider Name:Eleazar spaulding, 11/13/2024 10:30:00 AM, [email or web address], [place], [address], Provider Name:Eleazar spaulding, 12/07/2024 02:00:00 PM, [email or web address] [address], [place], [address], Progress Notes * Ariadne CAGE KDOB:1949 (74 yo F)Acc No.[id number]:10/12/2024 Infusion Patient: Chelsi ARANAa Iris Provider: Isela Watkins MD :1950 A ge:74 Y S ex:Female Date:10/12/2024 Address:[address] [place], [place] [address] Pcp:Sanchez Delgado MD Subjective: * Chief Complaints: * I nfusion, Orencia, 750mg, 3 vials, RMD * HPI: I nfusion: Infusion Record T ype of Infusion _ ____,Orencia, W hat is the dosage . 750mg dose. 0mg waste, H ow is the dose calculated . weight based, A uthorized by _ ____,Angle Whiting umber of vials to reconstitute . 3, I nfusion type _ ____,Orencia, A mount . 750mg, M anufacturer _ ___ BMS, E xpiration date 09/2026, L ot number _ __ [id number], S terile water (number of vials)?. auto-injector, S terile water lot number _ __ [id number], S terile water exp. date 11/2026, s terile water MFG _ _ Harris. P re Infusion Assessment T B Screening Results PPD N /A, Q uantiferon TB Gold Results N egative, C hest Xray Results N /A,?Recent exposure to TB _ ____, A ny illness now _ ____,None. S kin Conditon Does the patient has any skin condition n o. P revious Infusion D ate of last infusion?09/14/2024, P revious infusion type _ ____,Orencia, R eaction N o, W as patient pre treated _ ____,NO, R esponse to previous infusion _ ____. I V INSERTION Catheter brand _ ___ Oph-F-Edxcyf, C atherter Gauge _ ____,24 ga, N eedle Length?____,3/4 inch, I V site accessed _ ___ RAC, N umber of attempts to access vein/port?1, P remedication _ ____ n/a, T adria given _ __ n/a. P ATIENT MONITORING Time infusion initated _ __ 1500, R ate of infusion _ __ 200cc/hour, I nfusion end time: _ ____ 1527. D ISPOSITION T adria IV discontinued: _ __ 1530, A mount of drug administered _ ___ 750mg, N ext Infusion Date Scheduled: 0 11/09/2024. * Medical History: * Surgical History: H ip surgery; 6236-22-02Osfhc surgery; 6273-50-81samdz valve; 7229-21-67Qtlxwjbqc tube; 2020-08-14 * Hospitalization/Major Diagno stic Procedure: [...] by intravenous route every 4 weeks Intravenous [id number]-[id number] Pantoprazole Sodium 40 MG Tablet Delayed Release take 1 tablet (40 mg) by oral route once daily Oral 1 Spironolactone-HCTZ 25-25 mg Tablet take 1 tablet by oral route once daily Oral 1 Folic Acid 1 MG Tablet TAKE 1 TABLET ONE TIME DAILY Taking Orencia 250 mg Solution Reconstituted infuse 1,000 mg over 30 minute(s) by intravenous route every 4 weeks Intravenous 3.64829730742910E-40 Taking Pantoprazole Sodium 40 MG Tablet Delayed Release take 1 tablet (40 mg) by oral route once daily Oral 1 Taking Spironolactone-HCTZ 25-25 mg Tablet take 1 tablet by oral route once daily Oral 1 Taking Folic Acid 1 MG Tablet TAKE 1 TABLET ONE TIME DAILY Objective: * Vitals: B P:118/57mm Hg, Temp:97.8F, Wt:168lbs, Wt-k.2 kg, Ht: 70 in, Ht-cm: 177.80 cm, BMI:24.1Index, Body Surface Area: 1.94. Assessment: * Assessment: 1. 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 O ther [place] [facility] drug therapy L AB: Basic Metabolic Panel * Procedure Codes: J 0129 ABATACEPT INJECTION, Units: 75.00 , Modifiers: JZ 86071 THER/PROPH/DIAG IV INF, INIT * Billing Information: * Visit Code: * Procedure Codes: J0129 ABATACEPT INJECTION. Units: 75.00. Modifiers: JZ 54615 THER/PROPH/DIAG IV INF, INIT. * Electronically co-signed by Eleazar Watkins MD on 10/12/2024 at 04:05 PM CDT Sign off status: Completed true * Provider: Isela Watkins MD Date: 0 10/12/2024 Generated for Gary gaines/Brandie/Cuate on: 0 11/07/2024 06:54 AM CDT History and Physical Notes * HPI (History of Present Illness) Category Sub-Category Detail Notes Category Not es Infusion Infusion Record Type of Infusion: ,Orencia What is the dosage: . 750mg dose. 0mg wa carmina How is the dose calculated: . weight bas ed Authorized by: ,Dr. Watkins Number of vials to reconstitute: . 3 Infusion type: ,Orencia Amount: . 750mg Jewelry Dipper: ____ BMS Expiration date: 09/2026 Lot number: ___ [id number] Sterile water (number of vials): . auto- injector Sterile water lot number: ___ [id number] Sterile water exp. date: 11/2026 sterile water MFG: __ Harris Pre Infusion Assessment TB Screening Results PPD : N/A Quantiferon TB Gold Results: Negative Chest Xray Results: N/A Recent exposure to TB: Any illness now: ,None Skin Conditon Does the patient has any skin co ndition: no Previous Infusion Date of last infusion: 025 Previous infusion type: ,Orencia Reaction: No Was patient pre treated: ,NO Response to previous infusion: IV INSERTION Catheter brand: ____ Saf-T-Intim a Catherter Gauge: ,24 ga Needle Length: ____,3/4 inch IV site accessed: ____ RAC Number of attempts to access vein/port: 1 Premedication: n/a Time given: ___ n/a PATIENT MONITORING Time infusion initated: ___ 1 500 Rate of infusion: ___ 200cc/hour Infusion end time:: 1527 DISPOSITION Time IV discontinued:: ___ 1530 Amount of drug administered: ____ 750mg Next Infusion Date Scheduled::
--- OUTSIDE RECORDS SUMMARY | 2024-11-07 06:55 | XMS_ITS | Referral Summary ---
Author Organization [facility] Address [address] [place] [address] Care Team Providers Care Tank House Operator Helper Name Role Phone Dg Huerta MD Primary Care Provider [phone] Xavier Frederick MD Unavailable Encounters Date Type Department Care Team Description 10/11/2024 Telephone [facility] Cardiology [address] [place] [address] for Advanced Medicine 8th [place] [address] [place] [address] Niko Santos 10/09/2024 Telephone [facility] Cardiology [address] [place] [address] Advanced Medicine 8th [place] [address] [place] [address] Jaicnto Reilly 10/02/[address] Advanced Medicine 8th [place] [address] [place] [address] Xavier Frederick MD Scheduling Appointments 09/27/[address] Advanced Medicine 8th [place] [address] [place] [address] Xavier Frederick MD Test Results 09/21/2024 4:39 PM CDT - 09/21/2024 11:59 PM CDT Hospital Encounter [facility] [address] [place] [address] Discharge Disposition: Discharge to home or self care 09/19/2024 Telephone [facility] Cardiology [address] [place] [address] Advanced Medicine 8th [place] [address] [place] [address] Xavier Frederick MD 09/14/2024 7:49 PM CDT - 09/14/2024 11:59 PM CDT Hospital Encounter [facility] [address] [place] [address] Discharge Disposition: Discharge to home or self care 09/12/2024 Results Follow-Up [facility] Cardiology [address] [facility] [address] [place] [address] Xavier Frederick MD 09/12/2024 2:30 PM CDT Office Visit [facility] Cardiology [address] [facility] [address] [place] [phone] Xavier Frederick MD S/P MVR (mitral valve replacement) (Primary Dx); Heart valve disorder; Shortness of breath 08/18/2024 Telephone [facility] Cardiology [facility] 8th [place] [address] [place] [phone] Yecenia Dunn from Last 3 Months Allergies Active Allergy [...] management - Sinus precautions, HOB elevated - Carson nasal spray - ice packs prn - [...] (10/31/2023 11:21 AM CDT): - Orencia 750mg [id number] [last dose 10/19] Psoriasis 11/18/2013 Overview (10/09/2016): [...] on file Legal Sex Female 12:17 AM BILLPOSTER Gender Identity Not on file Sexual Orientation Not on file Last Filed Vital Signs Vital Sign Reading Time Taken Comments Blood Pressure 122/60 09/12/2024 3:14 PM CDT Lef t arm Pulse 76 09/12/2024 3:14 PM CDT Temperature 36.6 C (97.8 F) 06/29/2024 11:58 AM BILLPOSTER Respiratory Rate 16 06/29/2024 6:30 PM BILLPOSTER Oxygen Saturation 93% 09/12/2024 3:14 PM CDT [...] Plan Chronic Care Management Worsening( 2:58 PM BILLPOSTER) Viola Parkinson RN Note: Problem: Chronic Pain Goals: 1. Minimize further functional decline 2. Maximize quality of life 3. Control pain Strategies: - Activity/exercise program recommendation - Conservative stepwise pain medicine strategy with multi-disciplinary approach - Recommend healthy lifestyle strategies and compensatory methods as needed Medical Devices Implanted Type Area Sanding Line Operator Device Identifier Shelf Expiration Date Model / Serial / Lot [employer]hew[employer]Rich[employer]/ Ortho Plate Evos 2.7mm/3.5mm Olecranon W/ Tines 7h R 114mm [id number] - [id number] Implanted:Qty: 1 on 10/29/2023 by Dee Meyer MD at [facility] Right: Forearm [employer]Rich[employer]/O rtho [id number] / / [employer]Rich[employer]/ Ortho 2.7mm 4.3mm 55mm Lock Self Retain Flat Head Long Bone Small Bone [id number] - [id number] Implanted:Qty: 1 on 10/29/2023 by Dee Meyer MD at [facility] Right: Forearm [employer]/Richco/O rtho [id number] / / [employer] Evolve 20mm Modular Elbow Standard Head Radial Proline 496-H020 - [id number] Implanted:Qty: 1 on 10/29/2023 by Dee Meyer MD at [facility] Right: Forearm [employer] [id number] 04/06/2031 496-H020 / / [id number] [employer] Evolve 7.5mm Head System Smooth Elbow +4mm Stem Radial Proline [id number] - [id number] Implanted:Qty: 1 on 10/29/2023 by Dee Meyer MD at [facility] Right: Forearm [employer] 11/18/2028 [id number] / / [id number] [employer]Rich[employer]/ Ortho Evos 3.5mm 22mm Self Tap Cortex Screw Bone Sterile [id number] - [id number] Implanted:Qty: 1 on 10/29/2023 by Dee Meyer MD at [facility] Right: Forearm [employer]/O rtho [id number] / / [employer]/ Ortho Evos 3.5mm 18mm Self Tap Cortex Screw Bone Sterile [id number] - [id number] Implanted:Qty: 1 on 10/29/2023 by Dee Meyer MD at [facility] Right: Forearm [employer]Rich[employer]/O rtho [id number] / / [employer]/ Ortho Evos 3.5mm 14mm Self Tap Cortex Screw Bone Sterile [id number] - [id number] Implanted:Qty: 1 on 10/29/2023 by Dee Meyer MD at [facility] Right: Forearm [employer]/O rtho [id number] / / [employer]/ Ortho Evos 2.7mm 4.5mm 16mm Self Tap Cortex T8 Screw Bone Mini Plate [id number] - [id number] Implanted:Qty: 1 on 10/29/2023 by Dee Meyer MD at [facility] Right: Forearm [employer]/O rtho [id number] / / [employer]/ Ortho 2.7mm 4.5mm 80mm Self Retaining Screwdriver Self Tap Flat Head [id number] - [id number] Implanted:Qty: 1 on 10/29/2023 by Dee Meyer MD at [facility] Right: Forearm [employer]/O rtho [id number] / / [employer]/ Ortho Evos 3.5mm 24mm Self Tap Lock Screw Bone Sterile [id number] - [id number] Implanted:Qty: 1 on 10/29/2023 by Dee Meyer MD at [facility] Right: Forearm [employer]Rich[employer]/O rtho [id number] / / Explanted Type Area Sanding Line Operator Device Identifier Shelf Expiration Date Model / Serial / Lot [employer]Rich[employer] /Ortho Evos 3.5mm 24mm Self Tap Cortex Screw Bone Sterile [id number] - [id number] Explanted:Qty : 1 on 10/29/2023 by Dee Meyer MD at [facility] Right: Forearm [employer]Rich[employer]/Or tho [id number] / / [employer]Rich[employer] /Ortho Evos Mini 2.7mm 4.5mm 80mm Self Tap Cortex T8 Screw Bone [id number] - [id number] Explanted:Qty : 1 on 10/29/2023 by Dee Meyer MD at [facility] Right: Forearm [employer]Rich[employer]/Or tho [id number] / / Procedures Procedure Name Priority Date/Time [...] Heart valve disorder SCREENING MAMMOGRAM BILATERAL W BRITNEY Schedule Routine, Read Routine (OP Routine) 07/19/2023 1:50 PM BILLPOSTER Screening mammogram, encounter for DEXA AXIAL SKELETON [...] only and have not been reviewed by [facility] Radiology. There will be no report generated by a [facility] Radiologist. Narrative [facility] - 09/21/2024 4:39 PM CDT EXAMINATION: Images For Reference Purposes Only Xavier Frederick MD IMG US PROCEDURES Final Resul t Performing Organization Address City/[facility]/ZIP Co de Phone Number [facility] * (ABNORMAL) [...] ORDERABLES Fin al Result Performing Organization Address City/[facility]/ZIP Co de Phone Number [facility] [address] [place] [address] * (ABNORMAL) Differential, auto (09/14/2024 2:42 PM CDT) Neutrophil abs 7.7(H) 1.5 - 6.5 K/cumm Imm gran abs 0.1 0.0 - 0.1 K/cumm [facility] Lymphocyte abs 1.3 0.8 - 3.3 K/cumm [facility] Monocyte abs 0.8 0.2 - 0.8 K/cumm [facility] Eosinophil abs 0.2 0.0 - 0.5 K/cumm [facility] Basophil abs 0.1 0.0 - 0.1 K/cumm [facility] Neutrophil pct 76.3 % [facility] Comment: Interpretive Data Percent cell count reference ranges are not reported, since discordance with absolute values may lead to misinterpretation of CBC data. Current Interpretive Data was last revised on 2017. Imm gran pct 0.5 % [facility] Comment: Interpretive Data Percent cell count reference ranges are not reported, since discordance with absolute values may lead to misinterpretation of CBC data. Current Interpretive Data was last revised on 2017. Lymphocyte pct 12.5 % [facility] Comment: Interpretive Data Percent cell count reference ranges are not reported, since discordance with absolute values may lead to misinterpretation of CBC data. Current Interpretive Data was last revised on 2017. Monocyte pct 8.3 % [facility] Comment: Interpretive Data Percent cell count reference ranges are not reported, since discordance with absolute values may lead to misinterpretation of CBC data. Current Interpretive Data was last revised on 2017. Eosinophil pct 1.6 % [facility] Comment: Interpretive Data Percent cell count reference ranges are not reported, since discordance with absolute values may lead to misinterpretation of CBC data. Current Interpretive Data was last revised on 2017. Basophil pct 0.8 % [facility] Comment: Interpretive Data Percent cell count reference ranges are not reported, since discordance with absolute values may lead to misinterpretation of CBC data. Current Interpretive Data was last revised on 2017. Blood 09/14/2024 2:42 PM CDT 09/14/2024 8:29 PM CDT us Eleazar Khan MD LAB BLOOD ORDERABLES Fin al Result [facility] [address] [place] [address] * (ABNORMAL) CBC with auto differential (09/14/2024 2:42 PM CDT) Pathologist [facility] WBC 10.1(H) 3.8 - 9.9 K/cumm Hgb 13.9 11.9 - 15.5 g/dL [facility] Hct 42.2 35.6 - 45.5 % [facility] Plt 287 150 - 400 K/cumm [facility] MPV 10.2 9.1 - 12.3 fL [facility] RBC 4.95 3.90 - 5.20 M/cumm [facility] MCV 85.3 81.3 - 96.4 fL [facility] MCH 28.1 27.1 - 33.3 pg [facility] MCHC 32.9 32.3 - 35.7 g/dL [facility] RDW CV 16.2(H) 11.1 - 14.9 % [facility] RDW SD 48.8(H) 35.7 - 48.1 fL [facility] NRBC abs 0.00 0.00 - 0.01 K/cumm [facility] Blood 09/14/2024 2:42 PM CDT 09/14/2024 8:29 PM CDT us Eleazar Khan MD LAB BLOOD ORDERABLES Fin al Result Performing Organization Address [facility] Co de Phone Number [facility] [address] [facility] [place] [address] * (ABNORMAL) Creatinine (09/14/2024 2:42 PM CDT) [facility] Creatinine 1.43(H) 0.60 - 1.10 mg/dL Blood 09/14/2024 2:42 PM CDT 09/14/2024 8:29 PM CDT us Eleazar Khan MD LAB BLOOD ORDERABLES Fin al Result Performing Organization Address City/[facility] Co de Phone Number [facility] [address] [place] [address] * (ABNORMAL) Hepatic function panel (09/14/2024 2:42 PM CDT) Bilirubin, total 1.0 0.1 - 1.2 mg/dL Bilirubin, direct 0.5(H) 0.1 - 0.3 mg/dL [facility] Protein, pl 8.1 6.5 - 8.5 g/dL [facility] Albumin 4.2 3.5 - 5.0 g/dL [facility] Alk phos 58 40 - 130 Units/L [facility] ALT 12 7 - 45 Units/L [facility] AST 27 10 - 45 Units/L [facility] Blood 09/14/2024 2:42 PM CDT 09/14/2024 8:29 PM CDT Eleazar Khan MD LAB BLOOD ORDERABLES Fin al Result [facility] [address] Department [place] [address] * ECG 12 lead (09/12/2024 3:06 PM CDT) Xavier Frederick MD ECG ORDERABLES Final Result * Screening Mammogram Bilateral W Britney (07/19/2023 1:50 PM BILLPOSTER) Anatomical Region Laterality Modality Breast Bilateral Mammography Narrative 07/19/2023 2:22 PM BILLPOSTER Examination: Screening Mammogram Bilateral W Britney: 07/19/23 Clinical: Screening mammogram, encounter for. Prior [...] DXA BMD was done at [facility] on a Zairge Discovery CI. Precision testing at this site [...] DXA BMD was done at [facility] on a Organically Maid CI. Precision testing at this site has [...] Relevant to Health Maintenance Insurance MEDICARE LOCAL [facility] H & W MCR SUPPLEMENT MEDICARE MEDICARE LOCAL 520 H & W MCR SUPPLEMENT MEDICARE COMMERCIAL GENERIC Advance Directives For more information, please contact: [phone] * Full Code (Latest Code Status on File) Date Activated Date Inactivated Comments 10/29/2023 3:27 PM 11/03/2023 12:45 AM * Full Code Date Activated Date Inactivated Comments 10/29/2023 1:01 AM 10/29/2023 3:27 PM * Full Code Date Activated Date Inactivated Comments 01/08/2021 12:21 PM 01/09/2021 4:50 AM Care Teams Tank House Operator Helper Relationship Specialty Start Date End Date Dg Huerta MD PCP - General 10/02/16 Xavier Frederick MD [address] [place] [address] Referring Physician Cardiology 10/02/24
--- OUTSIDE RECORDS SUMMARY | 2024-11-07 06:55 | XMS_ITS ---
Author Organization [facility] denae Address [address] [facility] [address] [place] [address] Care Team Providers Care Senior Salesforce Developer Name Role Phone Sandy FRANZ, Sanchez Primary Care Provider Unavail able Eleazar Watkins Unavailable [phone] Erin FRANZ, Eleazar Unavailable Unavailabl e Encounters Encounter Location Date Provider Diagnosis [facility] [address] [facility] [address] [place] [address] 09/15/2024 Eleazar Watkins Plan Of Treatment Next Appt Details Provider Name:Eleazar spaulding, 11/13/2024 10:30:00 AM, [address] [facility] [address], [place], [address], Provider Name:Eleazar spaulding, 12/07/2024 02:00:00 PM, [address] [facility] [address], [place], [address], Progress Notes * Ariadne CAGE KDOB:1949 (74 yo F)Acc No.[id number]:09/15/2024 Patient: Isreal ALBERT Ariadne Simmons :1950 A ge:74 Y S ex:Female Address: [address] [facility], [place], [address] * true * Date: Generated for Printi ng/Faxing/eTransmitting on: 0 11/07/2024 06:54 AM CDT
--- OUTSIDE RECORDS SUMMARY | 2024-11-07 06:55 | XMS_ITS | Encounter Summary ---
Author Organization [facility] Address [address] [place] [address] Phone Care Team Providers Care Non Acoustic Operator Name Role Phone Dg Huerta MD Primary Care Provider [phone] Xavier Frederick MD Unavailable [phone] Encounter Details Date Type Department Care Team (Late st Contact Info) Description 09/12/2024 Results Follow-Up [facility] Cardiology [address] [facility] [address] [place] [address] Xavier Frederick MD [address] [address] Social History Tobacco Use Types [...] on file Legal Sex Female 12:17 AM PARTS PERSON Gender Identity Not on file Sexual Orientation [...] Plan Chronic Care Management Worsening( 2:58 PM PARTS PERSON) No Viola Murphy RN Note: Problem: Chronic Pain Goals: 1. Minimize further functional decline 2. Maximize quality of life 3. Control pain Strategies: - Activity/exercise program recommendation - Conservative stepwise pain medicine strategy with multi-disciplinary approach - Recommend healthy lifestyle strategies and compensatory methods as needed documented as of this encounter Visit Diagnoses Not on filedocumented in this encounter Care Teams Non Acoustic Operator Relationship Specialty Start Date End Date Dg Huerta MD PCP - General 10/02/16 Xavier Frederick MD [address] [place] [address] Referring Physician Cardiology 10/02/24 documented as of this encounter
--- OUTSIDE RECORDS SUMMARY | 2024-11-07 06:55 | XMS_ITS | Encounter Summary ---
Author Organization [facility] Address [address] [place] [address] Phone Care Team Providers Care Plant Protection Superintendent Name Role Phone Dg Huerta MD Primary Care Provider [phone] Xavier Frederick MD Unavailable [phone] Encounter Details Date Type Department Care [...] on file Legal Sex Female 12:17 AM DIRECTOR OF PERIOPERATIVE SERVICES Gender Identity Not on file Sexual Orientation [...] today of echo. It was downloaded to [employer] on my desk if youwant to look [...] on filedocumented in this encounter Care Teams Plant Protection Superintendent Relationship Specialty Start Date End Date Dg Huerta MD PCP - General 10/02/16 Xavier Frederick MD [address] [place] [address] Referring Physician Cardiology 10/02/24 documented as of this encounter
--- OUTSIDE RECORDS SUMMARY | 2024-11-07 06:55 | XMS_ITS ---
Author Organization [facility] denae Address [address] [facility] [address] [place] [address] Care Team Providers Care Phys Asst Name Role Phone Sandy FRANZ, Sanchez Primary Care Provider Unavail able Eleazar Watkins Unavailable [phone] Erin FRANZ, Eleazar Unavailable Unavailabl e Encounters Encounter Location Date Provider Diagnosis [facility] [address] [facility] [address] [place] [address] 10/13/2024 Eleazar Watkins Plan Of Treatment Next Appt Details Provider Name:Eleazar spaulding, 11/13/2024 10:30:00 AM, [address] [facility] [address], [place], [address], Provider Name:Eleazar spaulding, 12/07/2024 02:00:00 PM, [address] [facility] [address], [place], [address], Progress Notes * Ariadne CAGE KDOB:1949 (74 yo F)Acc No.[id number]:10/13/2024 Patient: Isreal ALBERT Ariadne Simmons :1950 A ge:74 Y S ex:Female Address: [address] Pending sale to [facility], [place], [address] * true * Date: Generated for Printi ng/Faxing/eTransmitting on: 0 11/07/2024 06:55 AM CDT
--- OUTSIDE RECORDS SUMMARY | 2024-11-07 06:55 | XMS_ITS | Clinical Summary ---
Author Organization [facility] Address [address] [place] [address] Phone Care Team Providers Care Pit Supervisor Name Role Phone Unavailable Primary Care Provider Unavailabl e Encounters Date Type Department Care Team Description 11/03/2024 Telephone [facility] [address] [place] [address] [address] [place] [address] Derek Bedolla MD Question (CT chest) from Last 3 Months Social History Tobacco Use Types Packs/Day Years Used Date Smoking Tobacco: Never Assessed Comments Unknown Sex and Gender Information Value Date Recorded Sex Assigned at Not on file Legal Sex Female 10:17 AM CDT Gender Identity Not on file Sexual Orientation Not on file Plan of Treatment Upcoming Encounters Date Type Department Care Team (Late st Contact Info) Description 11/08/2024 3:00 PM CDT Office Visit [facility] [address] [place] [address] [address] [place] [address] Derek Bedolla MD [address] [facility] [address] [place] [address] Health Maintenance Due Date Last Done Comments COLORECTAL SCREENING 1996 Colorectal Cancer Screening 1996 FIT-DNA Q 3 years 1996 FIT/FOBT Q 1 year 1996 Flex Sig/CT Colonography Q 5 years 1996 ZOSTER VACCINE (1 of 2) 2001 PNEUMOCOCCAL VACCINE 50+ YEA RS (3 of 3 - PCV20 or PCV21) 04/04/2021 04/04/2016, 03/30/2016, 12/06/2008, Additional history exists INFLUENZA VACCINE (#1) 2024 0, 05/15/2019, 05/15/2019, Additional history exists BREAST CANCER SCREENING 07/19/2024 07/19/19, 07/19/2023, 06/12/2022, Additional history exists RSV VACCINE (60+ or ) (1 - 1-dose 75+ series) 2026 OSTEOPOROSIS SCREENING 12/22/2026 12/22/2021, 2021 DTAP/TDAP/TD VACCINES (2 - T d or Tdap) 10/27/2033 10/28/2023 Insurance MEDICARE PART A AND B MEDICARE PART A AND B
--- OUTSIDE RECORDS SUMMARY | 2024-11-07 06:55 | XMS_ITS ---
Author Name Auto Generated, Auto Generated Organization [facility] [facility] Address [address] [place] [address] Phone [phone] Care Team Providers Care Ict Sales Assistant Name Role Phone Jessi Taveras Unavailable Sanchez Coronado Unavailable [phone] Kaycee Sena Unavailable Lesly Corcoran Unavailable [phone] Eleazar Khan Unavailable [phone] Functional Status No Results Mental Status No Results Allergies and Intolerances Name Onset Date Reaction Severity nizatidine (Allergy) WedNov 01 23:36:00 EDT AcipHex (Allergy) WedNov 01 23:35:00 EDT 2023 Encounters Program Name Primary Diagnosis Admission Date/Time Dis charge Date/Time Assisted Living Area Hypertensive heart disease with heart failure WedAug 21 06:50:00 EST 2024 [facility] Aug 27 19:00:00 EST 2024 [facility] Oct 26 19:59:00 EDT 2024 [facility] WedAug 05 04:45:00 EST 2024Aug 21 06:45:00 EST 2024 [facility] WedNov 01 17:00:00 EDT 2023November 26 07:00:00 EDT 2023 Immunizations Name Dates Status TST-PPD intradermal WedNovember 09 01:00:00 EDT 2023 Completed TST-PPD intradermal Tue Aug 08 01:00:00 EST 2024 Completed TST-PPD intradermal Tue Aug 15 01:00:00 EST 2024 Completed TST-PPD intradermal Sun Aug 06 01:00:00 EST 2024 Completed TST-PPD intradermal Sun Aug 13 01:00:00 EST 2024 Completed TST-PPD intradermal WedNovember 11 01:00:00 EDT 2023 Completed Medications Medication Directions Start Date End Date omeprazole 40 mg capsule,delayed release 1 CAPSULE,DELAYED RELEASE (ENTERIC COATED) Oral 1 Time Daily Indication: GerdCNA supervision X 1 WedOct 20 09:39:00 EDT 2024 nystatin 100,000 unit/gram topical powder 1 [...] COATED) Oral 1 Time Daily Indication: depression ENGINEER INTERN supervision x1 WedSep 19 01:00:00 EDT 2024 [...] Or al 3 Times Weekly Indication: CHF ENGINEER INTERN supervision X1 WedSep 01 01:00:00 EST 2024Sep 11 10:28:00 EDT 2024 colchicine 0.6 mg tablet 2 tab TABLET Or al 1 Time Daily for 1 Day Indication: Gout ENGINEER INTERN Supervision WedSep 01 10:00:00 EST 2024Sep 02 09:59:00 EST 2024 colchicine 0.6 mg tablet 1 TABLET Oral 1 Time Daily for 1 Day Indication: Gout ENGINEER INTERN supervision WedSep 01 11:00:00 EST 2024Sep 02 10:59:00 EST 2024 allopurinoL 100 mg tablet 1 tab TABLET O ral 1 Time Daily Indication: gout ENGINEER INTERN supervision X1 WedSep 01 01:00:00 EST 2024 omeprazole 40 mg capsule,delayed release 1 CAPSULE,DELAYED RELEASE (ENTERIC COATED) Oral 2 Times Daily Indication: GerdCNA supervision X 1 x 4 WedAug 28 11:48:00 EST 2024Oct 20 09:43:00 EDT 2024 traMADoL 50 mg tablet 50mg TABLET [...] TABLET Oral 2 Times Daily Indication: Edema ENGINEER INTERN Supervision X 1 X 3 WedAug 27 12:34:00 EST 2024 Blood Pressure Kit n/a KIT Other 2 Time s Daily for 7 Days Indication: ENGINEER INTERN VitalsCNA supervision X 1 X 3 WedAug 23 01:00:00 EST 2024Aug 30 00:59:00 EST 2024 Blood Pressure Kit n/a KIT Other 2 Time s Monthly Indication: ENGINEER INTERN Vitals Indication: ENGINEER INTERN Vitals WedAug 23 01:00:00 EST 2024 hydrOXYzine HCL 25 mg tablet 25 mg TABLET Oral PRN Every 6 Hours Indication: Itching WedAug 21 04:30:00 EST 2024Aug 21 01:00:00 EST 2024 bisacodyL 5 mg tablet,delayed release 1 TABLET, DELAYED RELEASE (ENTERIC COATED) Oral PRN (Max 1 Doses) Indication: Constipation Wedb 17 13:00:00 EST 2024 Mon Feb 17 13:37:00 EST 2024 hydrocortisone 1 [...] Indication: Edema Wedb 17 13:00:00 EST 2024 Feb 17 13:52:00 EST 2024 cetirizine 5 [...] TABLET Oral 1 Time Weekly Indication: Athritis ENGINEER INTERN supervision X 1 WedAug 21 13:00:00 EST [...] Time s Daily for 7 Days Indication: ENGINEER INTERN VitalsCNA supervision X 1 X 3 WedAug [...] hours Sun Aug 06 15:09:00 2024 Sun b 16 15:08:00 2024 TubersoL 5 tub. unit/0.1 [...] Oral PRN 1 Time Daily Indication: Constipation WedAug 05 10:24:00 2024 Mon b 01:00:00 EST 2024 hydrocortisone 1 % topical cream 1 application CREAM (GRAM) Topical 2 Times Daily Indication: Apply to affected areas every 12 hours Sat Aug 05 10:30:00 2024b 01:00:00 EST 2024 traZODone 50 mg tablet 1 tablet TABLET O ral 1 Time Daily Indication: Sleep Sat Aug 05 10:32:00 2024b 12:52:00 EST 2024 acetaminophen 325 mg tablet [...] Oral 2 Times Daily Indication: CHF Sat b 10:51:00 EST 2024b 17 01:00:00 EST 2024 spironolactone 25 mg tablet 1 tablet TABLET Oral 1 Time Daily Indication: Edema Sat Aug 05 10:51:00 EST 2024 Feb 01:00:00 EST 2024 cetirizine 5 mg tablet [...] WedAug 05 11:00:00 EST 2024 Tue b 11 12:27:00 EST 2024 Ventolin HFA 90 mcg/actuation aerosol inhaler 2 puffs HFA AEROSOL WITH ADAPTER (GRAM) Inhalation PRN Every 4 Hours Indication: SOB/ Wheezing WedAug 05 11:03:00 EST 2024b 01:00:00 EST 2024 Myrbetriq 25 mg tablet,extended [...] Monthly Indication: RA Pt will go to [facility] outpatient for infusion. WedNovember 16 07:00:00 [...] * Text: * Atherosclerotic heart disease of [place] coronary artery without angina pectoris* Code: * [...] 2023 * End Date: * Text: * MCFP (current) use of antimetabolite agent* Code: * [...] 2024 * End Date: * Text: * LSS_Falls - Ariadne is at risk [...] EDT 2023 * End Date: * Text: MATTHEWSkin Integrity Larisa Ron has alteration in skinintegrity. Wound type:_surgical , woundlocation:_right arm . * Chong Ron receives a therapeutic diet. (12)* Code: * Start Date: WedAug 14 00:00:00 EST 2024 * End Date: * Text: Chong Ron receives a therapeutic diet. (12) * MATTHEWSocial Sandy Ron's wishes will be followed (Advanced Directive/Code Status).* Code: * Start Date: WedAug 15 00:00:00 EST 2024 * End Date: * Text: MATTHEWSocial Sandy Ron's wishes will be followed (Advanced Directive/Code Status). * MATTHEWSocial Sandy Ron will be involved [...] 2024 * End Date: * Text: MATTHEWSocial Services- Ariadne will be involved in discharge planning. * LSS_Bowel Alterations - Ariadne has a bowelelimination problem as evidenced by: constipation (x ),diarrhea ( ), history of fecal impaction ( ), bowelincontinence ( ).x* Code: * Start Date: WedAug 18 00:00:00 EST 2024 * End Date: * Text: LSS_Bowel [...] Vital Sign Measurement Date Systolic Blood Pressure 136.00 mm[Hg] WedNovember 06 18:10:10 EDT 2024 Diastolic Blood Pressure 56.00 mm[Hg] WedNovember 06 18:10:10 EDT 2024 Body weight 171.00 [lb_av] WedNovember 06 18:10 :10 EDT 2024 Heart Rate 67.00 /min WedNovember 06 18:10 :10 EDT 2024 Body temperature 98.30 [degF] WedNovember 06 18:1 0:10 EDT 2024 Respiratory rate 18.00 /min WedNovember 06 18:1 0:10 EDT 2024 Pulse Oximetry 94.00 % WedNovember 06 18:10 :10 EDT 2024 Systolic Blood Pressure 141.00 mm[Hg] WedNovember 02 08:11:18 EDT 2024 Diastolic Blood Pressure 60.00 mm[Hg] WedNovember 02 08:11:18 EDT 2024 Heart Rate 77.00 /min WedNovember 02 08:11 :18 EDT 2024 Body temperature 98.40 [degF] WedNovember 02 08:1 1:18 EDT 2024 Respiratory rate 18.00 /min WedNovember 02 08:1 1:18 EDT 2024 Pulse Oximetry 93.00 % WedNovember 02 08:11 :18 EDT 2024 Systolic Blood Pressure 154.00 mm[Hg] [facility] Oct 21 21:25:52 EDT 2024 Diastolic Blood Pressure 64.00 mm[Hg] [facility] Oct 21 21:25:52 EDT 2024 Body weight 168.10 [lb_av] [facility] Oct 21 21:25 :52 EDT 2024 Heart Rate 73.00 /min [facility] Oct 21 21:25 :52 EDT 2024 Body temperature 98.60 [degF] [facility] Oct 21 21:2 5:52 EDT 2024 Respiratory rate 18.00 /min [facility] Oct 21 21:2 5:52 EDT 2024 Pulse Oximetry 96.00 % [facility] Oct 21 21:25 :52 EDT 2024 Systolic Blood Pressure 164.00 mm[Hg] [facility] Oct 07 22:28:40 EDT 2024 Diastolic Blood Pressure 59.00 mm[Hg] [facility] Oct 07 22:28:40 EDT 2024 Body weight 167.40 [lb_av] [facility] Oct 07 22:28 :40 EDT 2024 Heart Rate 69.00 /min [facility] Oct 07 22:28 :40 EDT 2024 Body temperature 98.20 [degF] [facility] Oct 07 22:2 8:40 EDT 2024 Respiratory rate 18.00 /min [facility] Oct 07 22:2 8:40 EDT 2024 Pulse Oximetry 98.00 % [facility] Oct 07 22:28 :40 EDT 2024 Systolic [...] EST 2024 Systolic Blood Pressure 137.00 mm[Hg] Tue Feb 25 10:09:03 EST 2024 Diastolic Blood Pressure 55.00 mm[Hg] Tue Feb 25 10:09:03 EST 2024 Heart Rate 73.00 /min Tue Feb 25 10:09 :03 EST 5 Respiratory rate 16.00 /min Tue Feb 25 10:0 9:03 EST 2024 Systolic Blood Pressure 132.00 mm[Hg] Mon Feb 24 21:32:02 EST 2024 Diastolic Blood Pressure 56.00 mm[Hg] Mon Feb 24 21:32:02 EST 2024 Heart Rate 67.00 /min Mon Feb 24 21:32 :02 EST 2024 Respiratory rate 20.00 /min Mon Feb 24 21:3 2:02 EST 2024 Systolic Blood Pressure 131.00 mm[Hg] Mon Feb 24 11:41:51 EST 2024 Diastolic Blood Pressure 56.00 mm[Hg] Mon Feb 24 11:41:51 EST 2024 Heart Rate 70.00 /min Mon Feb 24 [...] 66.00 mm[Hg] Sun Feb 23 15:23:55 EST 5 Heart Rate 108.00 /min Sun Feb 23 [...] 64.00 mm[Hg] Fri Feb 21 23:10:50 EST 5 Heart Rate 70.00 /min Fri Feb 21 23:10 :50 EST 5 Respiratory rate 18.00 /min Fri Feb 21 23:1 0:50 EST 2024 Systolic Blood Pressure 143.00 mm[Hg] [...] % Wed Feb 19 20:52 :25 EST 2024 Systolic Blood Pressure 152.00 mm[Hg] Wed Feb 19 14:27:34 EST 5 Diastolic Blood Pressure 64.00 mm[Hg] Wed Feb 19 14:27:34 EST 2024 Heart Rate 72.00 /min Wed Feb 19 14:27 :34 EST 2024 Respiratory rate 20.00 /min Wed Feb 19 14:2 7:34 EST 2024 Systolic Blood Pressure 128.00 mm[Hg] e Feb 18 19:30:33 EST 5 Diastolic Blood Pressure 68.00 mm[Hg] e Feb 18 19:30:33 EST 2024 Body weight 183.40 [lb_av] e Feb 18 19:30 :33 EST 5 Heart Rate 68.00 /min e Feb 18 19:30 :33 EST 2024 Body temperature 97.50 [degF] e Feb 18 19:3 0:33 EST 2024 Respiratory rate 18.00 /min e Feb 18 19:3 0:33 EST 2024 Pulse Oximetry 96.00 % e Feb 18 19:30 :33 EST 2024 Systolic Blood Pressure 134.00 mm[Hg] e Feb 18 09:21:12 EST 5 Diastolic Blood Pressure 65.00 mm[Hg] e Feb 18 09:21:12 EST 2024 Body weight 183.00 [lb_av] e Feb 18 09:21 :12 EST 5 Heart Rate 75.00 /min e Feb 18 09:21 :12 EST 2024 Body temperature 98.10 [degF] e Feb 18 09:2 1:12 EST 2025 Respiratory rate 18.00 /min Wedb 18 09:2 1:12 EST 2024 Pulse Oximetry 92.00 % Wedb 18 09:21 :12 EST 2024 Systolic Blood Pressure 134.00 mm[Hg] Wedb 17 19:26:25 EST 2024 Diastolic Blood Pressure 65.00 mm[Hg] Wedb 17 19:26:25 EST 2024 Heart Rate 75.00 /min Wedb 17 19:26 :25 EST 2024 Body temperature 98.10 [degF] Wedb 17 19:2 6:25 EST 2024 Respiratory rate 18.00 /min Wedb 17 19:2 6:25 EST 2024 Pulse Oximetry 92.00 % Wedb 17 19:26 :25 EST 2024 Systolic Blood Pressure 131.00 mm[Hg] Wedb 17 10:50:13 EST 2024 Diastolic Blood Pressure 65.00 mm[Hg] Wedb 17 10:50:13 EST 2024 Heart Rate 80.00 /min Wedb 17 10:50 :13 EST 2024 Body temperature 97.60 [degF] Wedb 17 10:5 0:13 EST 2024 Respiratory rate 18.00 /min Wedb 17 10:5 0:13 EST 2024 Pulse Oximetry 93.00 % Wedb 17 10:50 :13 EST 2024 Systolic Blood Pressure 134.00 mm[Hg] Wedb 17 01:00:00 EST 2024 Diastolic Blood Pressure 65.00 mm[Hg] Wedb 17 01:00:00 EST 2024 Heart Rate 75.00 /min Wedb 17 01:00 :00 EST 2024 Body weight 187.00 [lb_av] Wedb 17 01:00 :00 EST 2024 Body temperature 98.10 [degF] Wedb 17 01:0 0:00 EST 2024 Respiratory rate 18.00 /min Wedb 17 01:0 0:00 EST 2024 Pulse Oximetry 96.00 % Wedb 17 01:00 :00 EST 2024 Body Height 69.00 [in_i] Wedb 17 01:00 :00 EST 2024 Systolic Blood Pressure 133.00 mm[Hg] Wed Feb 17 00:12:44 EST 2024 Diastolic Blood Pressure 61.00 mm[Hg] Wedb 17 00:12:44 EST 2024 Heart Rate 70.00 [...] [degF] Sat Feb 15 23:4 3:15 EST 5 Respiratory rate 18.00 /min Sat Feb 15 23:4 3:15 EST 2024 Pulse Oximetry 93.00 % Sat Feb 15 23:43 :15 EST 2024 Body weight 186.20 [lb_av] Sat Feb 15 12:52 :12 EST 5 Systolic Blood Pressure 127.00 mm[Hg] Sat Feb 15 09:10:19 EST 5 Diastolic Blood Pressure 58.00 mm[Hg] Sat Feb 15 09:10:19 EST 5 Heart Rate 70.00 /min Sat Feb 15 09:10 :19 EST 5 Body temperature 97.70 [degF] Sat Feb 15 09:1 0:19 EST 5 Respiratory rate 16.00 /min Sat Feb 15 09:1 0:19 EST 2024 Pulse Oximetry 90.00 % Sat Feb 15 09:10 :19 EST 2025 Systolic Blood Pressure 121.00 mm[Hg] Fri Feb [...] 13:52 :51 2024 Heart Rate 79.00 /min Wed Feb 14 13:52 :51 2024 Body temperature 97.40 [degF] Wed Feb 14 13:5 2:51 2024 Respiratory rate 20.00 /min Wed Feb 14 13:5 2:51 2024 Pulse Oximetry 96.00 % Wed Feb 14 13:52 :51 2024 Systolic Blood [...] [degF] Amber Feb 13 09:3 3:37 EST 5 Respiratory rate 18.00 /min Amber Feb 13 [...] /min Wed Feb 12 20:2 3:00 EST 5 Pulse Oximetry 94.00 % Wed Feb 12 20:23 :00 EST 5 Body weight 191.40 [lb_av] Wed Feb 12 [...] 51.00 mm[Hg] Wed Feb 12 00:13:11 EST 2025 Heart Rate 80.00 /min Wed Feb 12 [...] 140.00 mm[Hg] Tue Feb 11 08:50:19 EST 5 Diastolic Blood Pressure 56.00 mm[Hg] Tue Feb 11 08:50:19 EST 2024 Heart Rate 75.00 /min Wed Feb 08:50 :19 EST 2024 Body temperature 98.10 [degF] Wed Feb 08:5 0:19 EST 2024 Respiratory rate 20.00 /min Wed Feb 08:5 0:19 EST 2024 Pulse Oximetry 93.00 % Wed Feb 08:50 :19 EST 2024 Systolic Blood Pressure 129.00 mm[Hg] Mon Feb 10 23:39:10 EST 2024 Diastolic Blood Pressure 66.00 mm[Hg] Mon Feb [...] 4:43 EST 2024 Pulse Oximetry 95.00 % Wedb 20:44 :43 EST 2024 Body weight 198.10 [lb_av] Sun Feb 09 17:22 :07 EST 2024 Systolic Blood Pressure 130.00 mm[Hg] Sun Feb 09 15:00:05 EST 2024 Diastolic Blood Pressure 55.00 mm[Hg] Sun Feb 15:00:05 EST 2024 Heart Rate 84.00 /min Sun Feb 15:00 :05 EST 2024 Body temperature 97.10 [degF] Sun Feb 15:0 0:05 EST 2024 Respiratory rate 20.00 /min Sun Feb 15:0 0:05 EST 2024 Pulse Oximetry 96.00 % Sun Feb 15:00 :05 EST 2024 Systolic Blood Pressure 128.00 mm[Hg] Sun Feb 00:08:28 EST 2024 Diastolic Blood Pressure 61.00 mm[Hg] Sun Feb 00:08:28 EST 2024 Heart Rate 86.00 /min Sun Feb 00:08 :28 EST 2024 Body temperature 97.70 [degF] Sun Feb 09 00:0 8:28 EST 2024 Respiratory rate 20.00 /min Sun Feb 00:0 8:28 EST 2024 Pulse Oximetry 95.00 % Sun Feb 00:08 :28 EST 2024 Body weight 198.60 [lb_av] Sat Feb 08 14:12 :45 EST 2024 Systolic Blood Pressure 121.00 mm[Hg] Sat Feb 08 10:45:04 EST 2024 Diastolic Blood Pressure 57.00 mm[Hg] Sat Feb 08 10:45:04 EST 5 Heart Rate 71.00 /min Sat Feb 08 10:45 :04 EST 2024 Body temperature 98.00 [degF] Sat Feb 08 10:4 5:04 EST 5 Respiratory rate 18.00 /min Sat Feb 08 10:4 5:04 EST 2024 Pulse Oximetry 92.00 % Sat Feb 08 10:45 :04 EST 2024 Systolic Blood Pressure 143.00 mm[Hg] Wed Feb 07 21:58:37 EST 5 Diastolic Blood Pressure 70.00 mm[Hg] Wed Feb 21:58:37 EST 5 Heart Rate 76.00 /min Wed Feb 21:58 :37 EST 5 Body temperature 97.50 [degF] Wed Feb 07 21:5 8:37 EST 5 Respiratory rate 20.00 /min WedAug 11 21:5 8:37 EST 2024 Pulse Oximetry 93.00 % WedAug 11 21:58 :37 EST 5 Body weight 197.80 [lb_av] WedAug 11 15:09 :32 EST 5 Systolic Blood Pressure 136.00 mm[Hg] Wed 07 12:22:14 EST 5 Diastolic Blood Pressure [...] 93.00 % WedAug 11 00:13 :13 EST 5 Systolic Blood Pressure 133.00 mm[Hg] Wedb 09:59:32 EST 5 Diastolic Blood Pressure 51.00 mm[Hg] WedAug 10 09:59:32 EST 2024 Pulse Oximetry 91.00 % WedAug 10 09:59 :32 EST 5 Body weight 198.40 [lb_av] WedAug 10 09:59 :32 EST 5 Heart Rate 69.00 /min WedAug 10 09:59 :32 EST 5 Body temperature 97.80 [degF] WedAug 10 09:5 9:32 EST 5 Respiratory rate 18.00 /min Wedb 09:5 9:32 EST 5 Systolic Blood Pressure 144.00 mm[Hg] WedAug 09 22:59:15 EST 5 Diastolic Blood Pressure 59.00 mm[Hg] WedAug 09 22:59:15 EST 5 Heart Rate 67.00 /min Wed Feb 05 22:59 :15 EST 2024 Body temperature 97.80 [degF] Wed Feb 05 22:5 9:15 EST 2024 Respiratory rate 18.00 /min Wed Feb 05 22:5 9:15 EST 2024 Pulse Oximetry 93.00 % Wed Feb 05 22:59 :15 EST 2024 Body weight [...] EST 2024 Diastolic Blood Pressure 58.00 mm[Hg] Wedb 04 19:51:51 2024 Heart Rate 72.00 /min Wedb 04 19:51 :51 2024 Body temperature 98.20 [degF] Wedb 04 19:5 1:51 2024 Respiratory rate 18.00 /min Wedb 04 19:5 1:51 2024 Pulse Oximetry 92.00 % Wed 04 19:51 :51 EST 2024 Body weight 202.40 [lb_av] Wedb 04 13:33 :22 EST 2024 Systolic Blood Pressure 132.00 mm[Hg] Wed Feb 04 11:47:39 EST 2024 Diastolic Blood Pressure 54.00 mm[Hg] Wed Feb 04 11:47:39 EST 2024 Heart Rate 73.00 /min Wedb 04 11:47 :39 EST 2024 Body temperature 97.70 [degF] Wed Feb 04 11:4 7:39 EST 5 Respiratory rate 20.00 /min Wed Feb 04 11:4 7:39 EST 2024 Pulse Oximetry 95.00 % Tue Feb 04 11:47 :39 EST 5 Systolic Blood Pressure 140.00 mm[Hg] WedAug 08 03:24:55 EST 5 Diastolic Blood Pressure 53.00 mm[Hg] WedAug 08 03:24:55 EST 5 Heart Rate 73.00 /min WedAug 08 03:24 :55 EST 5 Body temperature 98.50 [degF] WedAug 08 03:2 4:55 EST 2025 Respiratory rate 18.00 /min WedAug 08 03:2 4:55 EST 5 Pulse Oximetry 92.00 % WedAug 08 03:24 :55 EST 5 Body weight 202.60 [lb_av] Wedb 14:14 :10 EST 5 Body Height 66.00 [in_i] Wedb 12:01 :05 EST 5 Systolic Blood Pressure 125.00 mm[Hg] Wedb 09:48:14 EST 5 Diastolic Blood Pressure 59.00 mm[Hg] Wedb 09:48:14 EST 5 Heart Rate 71.00 /min Wedb 09:48 :14 EST 2025 Body temperature 97.70 [degF] Wedb 09:4 8:14 EST 5 Respiratory rate 18.00 /min Wedb 03 09:4 8:14 EST 5 Pulse Oximetry 93.00 % Wedb 09:48 :14 EST 5 Systolic Blood Pressure 138.00 mm[Hg] Wedb 03 01:10:54 EST 2025 Diastolic Blood Pressure 61.00 mm[Hg] Wedb 03 01:10:54 EST 2025 Heart Rate 62.00 /min Wedb 03 01:10 :54 EST 2025 Body temperature 97.80 [degF] Wedb 01:1 0:54 EST 5 Respiratory rate 18.00 /min Wedb 01:1 0:54 EST 5 Pulse Oximetry 93.00 % Wedb 01:10 :54 EST 5 Body weight 200.60 [lb_av] Wedb 08:49 :14 EST 2025 Systolic Blood Pressure 132.00 mm[Hg] Wedb 08:49:07 EST 2025 Diastolic Blood Pressure 63.00 mm[Hg] Wedb 08:49:07 EST 2025 Heart Rate 66.00 /min Sun Aug 06 08:49 :07 EST 2024 Body temperature 97.60 [degF] [facility] Aug 06 08:4 9:07 EST 2024 Respiratory rate 18.00 /min [facility] Aug 06 08:4 9:07 EST 2024 Pulse Oximetry 93.00 % [facility] Aug 06 08:49 :07 EST 2024 Systolic Blood Pressure 127.00 mm[Hg] [facility] Aug 06 00:52:34 EST 2024 Diastolic Blood Pressure 62.00 mm[Hg] [facility] Aug 06 00:52:34 EST 2024 Heart Rate 69.00 /min [facility] Aug 06 00:52 :34 EST 2024 Body temperature 98.20 [degF] [facility] Aug 06 00:5 2:34 EST 2024 Respiratory rate 20.00 /min [facility] 00:5 2:34 EST 2024 Pulse Oximetry 93.00 % [facility] Aug 06 00:52 :34 EST 2024 Systolic Blood Pressure 123.00 mm[Hg] [facility] Aug 05 11:28:00 EST 2024 Diastolic Blood Pressure 53.00 mm[Hg] [facility] Aug 05 11:28:00 EST 2024 Heart Rate 68.00 /min [facility] Aug 05 11:28 :00 EST 2024 Body temperature 97.40 [degF] [facility] Aug 05 11:2 8:00 EST 2024 Respiratory rate 18.00 /min [facility] Aug 05 11:2 8:00 EST 2024 Pulse Oximetry 92.00 % [facility] Aug 05 11:28 :00 EST 2024 Systolic [...] 2023 Diastolic Blood Pressure 52.00 mm[Hg] WedNovember 20:06:42 EDT 2023 Heart Rate 68.00 /min WedNovember [...] Pressure 130.00 mm[Hg] WedNovember 12 23:35:19 EDT 2024 Diastolic Blood Pressure 62.00 mm[Hg] WedNovember 12 [...] % WedNovember 07 10:28 :13 EDT 2023 Reason for Referral Past Medical History Resolved Concerns * Problem Fall on same [...] * End Date: WedAug 07 00:00:00 EST 2025 * Problem Unspecified fracture of upper end [...]
== END 2024-11-07 06:50 | disposition home or self-care (01) ==
LOC: ANHIMG 06:52
PROVIDERS: PCP Nurse Practitioner Adult Health; Visit Provider Nurse Practitioner Adult Health
DX: J90 Pleural effusion, not elsewhere classified (principal); J43.9 Emphysema, unspecified; R16.1 Splenomegaly, not elsewhere classified
CPT/HCPCS: 71250